=== PATIENT | male | born 1940 | race Caucasian/White ===

== ENCOUNTER → 2018-08-29 12:17 | Outpatient (CLI) | payer OTHER, SELFPAY ==
[2018-08-29 11:55] VITALS: BMI 27.6
--- NOTE | 2018-08-29 12:23 | RAD_ITS ---
HISTORY: Short of breath. EXAM/TECHNIQUE: XR Chest 2 Views: COMPARISON: None. FINDINGS: # of images incl. paperwork: 2 Blunting of the cost phrenic sulci compatible with small pleural effusions. Course interstitial prominence most prominent in the perihilar regions and lower lungs. No apparent pneumothorax. Heart size upper normal. No acute osseous abnormality. . RAD/Chest PA and Lateral IMPRESSION: Findings most likely represent congestive heart failure with pleural effusions and interstitial pulmonary edema. There may be a component of underlying chronic interstitial lung disease; comparison with priors would be helpful. at 1240 Reported and signed by: Piero Telles MD Electronically Signed: Piero Telles, at 12:39 EST Tel , Service support ,
== END ==
PROVIDERS: Referring Provider Physician Assistant Surgical; Visit Provider Physician Assistant Surgical
DX: J20.9 Acute bronchitis, unspecified (principal)
CPT/HCPCS: 71046

== ENCOUNTER 2021-05-13 12:25 | Inpatient (IN) | payer OTHER, MEDICARE, SELFPAY ==
[2021-05-13] VITALS (12 sets, daily range): BP systolic 111–148; BP diastolic 50–94; PULSE 65–106; RESP 16–20; TEMP 36.6–38.1; O2SAT 94–98; BMI 25.1; BMI 28.2
--- NOTE | 2021-05-13 12:52 | EKG12_ITS ---
Test Reason : WEAKNESS Blood Pressure : / mmHG Vent. Rate : 097 BPM Atrial Rate : 108 BPM P-R Int : 000 ms QRS Dur : 128 ms QT Int : 332 ms P-R-T Axes : 000 -31 -28 degrees QTc Int : 421 ms Atrial fibrillation Left axis deviation Non-specific intra-ventricular conduction block Abnormal ECG Confirmed by PANTERA DONALD, DANUTA ([id number]), editor sound HERMINIA ROGERS ([id number]) on 05/14/2021 9:04:13 AM Referred By: REBECA Confirmed By:DANUTA MOTT MD
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
[2021-05-13 13:10] LABS: Absolute Lymphocyte Count 0.06 X10^3/uL (0.83-4.51); Absolute Neutrophil Count 2.5 X10^3/uL (2.0-7.7); Basophil# 0.01 X10^3/uL; Basophil% 0.4 % (0-1); Hematocrit 38.9 % (40-54); Hemoglobin 13.8 g/dL (13.0-16.5); Lymphocyte # 0.06 X10^3/ul (0.83-4.51); Lymphocyte % 2.2 % (19-41); Mean Corp Hgb Conc 35.5 g/dL (32-36); Mean Corpuscular Hgb 30.8 pg (27.0-32.0); Mean Corpuscular Volume 86.8 fL (80-94); Mean Platelet Vol. 9.5 fl (6.2-12.0); Monocyte# 0.16 X10^3/uL; Monocyte% 5.8 % (0-10); NRBC Flagged by Analyzer 0 % (0-5); Neutrophil # 2.53 X10^3/uL (2.7-7.7); Neutrophil % 90.9 % (47-70); POSITIVE DIFFERENTIAL YES; Platelet Count 121 K/mm3 (150-450); RBC Distribution Width SD 41.3 fl (35.1-43.9); Red Blood Count 4.48 M/mm3 (4.6-6.2); White Blood Count 2.8 K/mm3 (4.4-11.0)
--- NOTE | 2021-05-13 13:10 | RAD_ITS ---
STUDY: X-RAY CHEST REASON FOR EXAM: Male, 80 years old. Fever TECHNIQUE: Single AP portable view of the chest. COMPARISON: Comparison is made with prior examination dated 08/21/2018. FINDINGS: EKG electrodes are seen. There is hyperinflation of the lungs consistent with chronic obstructive lung disease (COPD). Mild increased markings at the lung bases suggestive of scarring. These have improved as compared to prior study. Normal size heart. Normal mediastinum and katharina. There is prominence of the pulmonary hilar arteries without peripheral pulmonary vascular congestion, suggesting pulmonary hypertension. Normal visualized aortic arch and descending thoracic aorta. There are diffuse degenerative changes of the visualized thoracic spine. Normal visualized ribs, clavicles, and shoulders. There is no demonstrated abnormality of the visualized soft tissue structures of the upper abdomen. RAD/Chest 1 View (Portable) IMPRESSION: Hyperinflation. Mild degree of increased interstitial markings at the lung bases suggestive of a scarring. There has been improvement as compared to prior study. Electronically Signed: Juvenal Salcedo MD at 13:38 EDT , Service support ,
[2021-05-13 13:11] LABS: Differential Indicated SCAN CRITERIA MET
[2021-05-13 13:38] LABS: ALB/GLOB Ratio 0.9 RATIO (0.9-2.4); AST(SGOT) 87 U/L (15-37); Alanine Aminotransfer ALT/SGPT 27 U/L (16-61); Albumin, Serum 4.2 g/dL (3.2-5.0); Alkaline Phosphatase 133 U/L (45-117); Anion Gap 12 (5-15); BUN 11 mg/dL (7-18); BUN/Creat Ratio 12.6 RATIO (10-20); Calcium,Total 9.4 mg/dL (8.5-10.1); Chloride 81 mmol/L (98-107); Creatinine, Serum 0.88 mg/dL (0.70-1.30); EST Glomerular Filtration Rate 89 mL/min (>60); Est Glom Filt Rate - Afr Amer 108 mL/min (>60); Estimated Creatinine Clearance 73.68 ml/min; Globulin 4.9 g/dL (2.2-4.2); Glucose 113 mg/dL (74-106); Lactic Acid 2.1 mmol/L (0.4-1.9); Lipase 49 U/L (73-393); Protein, Total 9.1 g/dL (6.4-8.2); Sodium Level 119 mmol/L (136-145); Troponin-I HS 420 pg/mL (3.0-78.0)
[2021-05-13 13:52] LABS: Magnesium 1.9 mg/dL (1.6-2.6); Thyroid Stim Hormone (TSH) 1.34 uIU/mL (0.358-3.74)
[2021-05-13 14:00] LABS: White Blood Cells 0 SEEN /hpf (0-5)
[2021-05-13 14:03] LABS: Color, Urine Yellow (Yellow); Glucose, Dipstick Normal (Normal); Ketone-Dipstick 50 mg/dl (Negative); Leukocyte Esterase-Dipstick Negative /ul (Negative); Nitrite-Dipstick Negative (Negative); Occult Blood-Urine 250 /ul (Negative); Protein-Dipstick 100 mg/dl (Negative); Urine Bilirubin Dipstick Negative (Negative); Urine Clarity Clear (Clear); Urine Urobilinogen Normal (Normal)
[2021-05-13 14:18] LABS: Bacteria RARE /hpf (None Seen); Mucous, Urine RARE /hpf (<or=2+); Red Blood Cells-Urine 5-10 SEEN /hpf (0-5); Squamous Epithelial Cells - UA 0-5 SEEN /hpf (0-5)
--- NOTE | 2021-05-13 14:28 | ED.RN ---
multiple attempts to draw blood. unsuccessful. lab notified. will send someone up to draw.
--- NOTE | 2021-05-13 15:17 | ED.RN ---
unable to obtain ptt/pt/inr in blood work. pt stuck multiple times, nurses and lab were unsuccessful. dr. whittaker informed.
--- NOTE | 2021-05-13 15:40 | ED.RN ---
THIS RN ATTEMPTED TO CALL [facility] AND OBTAIN A MEDICATION LIST. [facility] WAS UNABLE TO GIVE INFORMATION TO THIS RN AFTER BEING ON HOLD FOR 20 MIN.
[2021-05-13] MEDS: Aspirin 325 MG Tablet PO (16:32)
[2021-05-13 17:02] LABS: Reflex Lactate? Y
[2021-05-13] MEDS: Potassium Chloride Oral Tablet 20 MEQ 40 MEQ PO ×2 (17:24→21:43)
[2021-05-13 17:33] LABS: International Normalized Ratio 1.5; Partial Thromboplast Time 57.2 Seconds (24.1-36.2); Prothrombin Time (Protime)PT. 17.4 SECONDS (11.7-14.9)
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
[2021-05-13 17:48] LABS: Lactic Acid 1.1 mmol/L (0.4-1.9)
--- NOTE | 2021-05-13 18:05 | ECHOCS_ITS ---
Reason For Study: Afib/Flutter Procedure This was a 2D Doppler, Color Flow transthoracic echocardiogram. The study was technically difficult. Contrast injection was performed. Exam performed portable in patient room. Left Ventricle Normal LV size. The estimated ejection fraction is 40 %. Mild segmental systolic dysfunction (see wall motion). Infero-Basal: Akinetic. Mid-inferoseptal : Hypokinetic. The rest of the wall segments are normal. Right Ventricle Normal RV size. Normal systolic function. Atria The left atrium is mildly enlarged. The right atrium is mildly enlarged. Mitral Valve Normal mitral valve. Mild (1+) eccentric mitral valve insufficiency. Tricuspid Valve Normal tricuspid valve. Mild to moderate (1-2+) tricuspid valve insufficiency. Pulmonary artery systolic pressure is 38 mmHg. Aortic Valve Normal aortic valve. Pulmonic Valve Normal pulmonic valve. Great Vessels Normal aortic root. The pulmonary artery is normal size. Normal inferior vena cava. Pericardium/Pleural No pericardial effusion. Medication Diluted definity 3ml given slow IV push to enhance endocardial definition. MMode/2D Measurements & Calculations LVIDd: 5.4 cm IVSd: 1.0 cm LA dimension: 4.9 cm LVIDs: 3.9 cm LVPWd: 0.82 cm RVDd: 5.1 cm FS: 27.6 % LAV(MOD-bp): 69.0 ml LA A4 area: 24.4 cm2 RA A4 area: 24.2 cm2 LAV(MOD-bp) Indexed: 33.4 ml/m2 LAV(MOD-sp2): 59.2 ml LAV(MOD-sp4): 78.1 ml Doppler Measurements & Calculations MV E max andrés: 90.5 cm/sec Ao V2 max: 90.0 cm/sec LV V1 max: 75.9 cm/sec Ao max P.3 mmHg LV V1 max P.3 mmHg MR max andrés: 470.2 cm/sec PA V2 max: 104.2 cm/sec TR max andrés: 292.8 cm/sec MR max P.4 mmHg TR max P.3 mmHg MR mean andrés: 378.2 cm/sec MR mean P.4 mmHg MR VTI: 138.0 cm ECHO/Echo Complete W/ Contrast Interpretation Summary Normal LV size. The estimated ejection fraction is 40 %. Mild segmental systolic dysfunction (see wall motion). Contrast injection was performed. Ordering Physician: Mick Molina Referring Physician: [place], [place] Performed By: Javier Hernandez RCS
--- NOTE | 2021-05-13 18:10 | PCS.PANDOC ---
PANDEMIC DOCUMENTATION INITIATED: Date: 03/17/2021 Time: 190
[2021-05-13] MEDS: 0.9% Normal Saline 1,000 ML 150 ML IV (18:30)
[2021-05-13 20:51] LABS: Troponin-I HS 1552 pg/mL (3.0-78.0)
[2021-05-13 22:28] LABS: Troponin-I HS 1484 pg/mL (3.0-78.0)
[2021-05-14] VITALS (10 sets, daily range): BP systolic 113–130; BP diastolic 53–73; PULSE 61–83; RESP 18; TEMP 36.4–38.2; O2SAT 96–100
[2021-05-14 02:15] LABS: Troponin-I HS 793 pg/mL (3.0-78.0)
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
[2021-05-14 07:08] LABS: Absolute Lymphocyte Count 0.08 X10^3/uL (0.83-4.51); Absolute Neutrophil Count 1.9 X10^3/uL (2.0-7.7); Basophil# 0.01 X10^3/uL; Basophil% 0.4 % (0-1); Hematocrit 32.6 % (40-54); Hemoglobin 11.5 g/dL (13.0-16.5); Lymphocyte # 0.08 X10^3/ul (0.83-4.51); Lymphocyte % 3.5 % (19-41); Mean Corp Hgb Conc 35.3 g/dL (32-36); Mean Corpuscular Hgb 30.9 pg (27.0-32.0); Mean Corpuscular Volume 87.6 fL (80-94); NRBC Flagged by Analyzer 0 % (0-5); Neutrophil # 1.91 X10^3/uL (2.7-7.7); Neutrophil % 82.7 % (47-70); POSITIVE COUNT YES; POSITIVE DIFFERENTIAL YES; POSITIVE MORPHOLOGY YES; Platelet Count 97 K/mm3 (150-450); RBC Distribution Width SD 41.9 fl (35.1-43.9); Red Blood Count 3.72 M/mm3 (4.6-6.2); White Blood Count 2.3 K/mm3 (4.4-11.0)
[2021-05-14 07:13] LABS: Differential Indicated SCAN CRITERIA MET
[2021-05-14 07:24] LABS: International Normalized Ratio 1.4; Prothrombin Time (Protime)PT. 16.4 SECONDS (11.7-14.9)
[2021-05-14 07:39] LABS: Differential Comment SCANNED; Platelet Estimate SLT DEC (ADEQ)
[2021-05-14 07:47] LABS: ALB/GLOB Ratio 0.8 RATIO (0.9-2.4); AST(SGOT) 75 U/L (15-37); Alanine Aminotransfer ALT/SGPT 25 U/L (16-61); Albumin, Serum 3.1 g/dL (3.2-5.0); Alkaline Phosphatase 96 U/L (45-117); Anion Gap 8 (5-15); BUN 17 mg/dL (7-18); BUN/Creat Ratio 20.8 RATIO (10-20); Calcium,Total 8.4 mg/dL (8.5-10.1); Chloride 90 mmol/L (98-107); Cholesterol 135 mg/dL (200); Creatinine, Serum 0.82 mg/dL (0.70-1.30); EST Glomerular Filtration Rate 97 mL/min (>60); Est Glom Filt Rate - Afr Amer 117 mL/min (>60); Estimated Creatinine Clearance 74.24 ml/min; Glucose 121 mg/dL (74-106); High Density Lipoprotein 77 mg/dL; Potassium 3.6 mmol/L (3.5-5.1); Protein, Total 7.1 g/dL (6.4-8.2); Sodium Level 121 mmol/L (136-145); Triglycerides 72 mg/dL; Very Low Density Lipoprotein 14 mg/dL (5-40)
[2021-05-14 08:16] LABS: BNP,B-Type NATRIURETIC PEPTIDE 1755.7 pg/mL (0-100)
[2021-05-14 08:19] LABS: Vitamin D,25 Hydroxy 25.8 ng/mL
[2021-05-14 08:20] LABS: Urine Sodium 8 mmol/L (Not Establ.)
[2021-05-14] MEDS: Aspirin 81 MG TAB.CHEW PO (08:34)
[2021-05-14] MEDS: Thiamine Hydrochloride 100 MG Tablet PO (08:35)
[2021-05-14] MEDS: Folic Acid 1 MG Tablet PO (08:35)
[2021-05-14] MEDS: Carvedilol 3.125 MG TABLET PO ×2 (08:35→22:45)
[2021-05-14 09:53] LABS: Osmolality, Urine 617 mOsm/KG
[2021-05-14 09:54] LABS: Osmolality, Serum 255 mOsm/KG (280-301)
[2021-05-14] MEDS: Acetaminophen 325 MG Tablet 650 MG PO ×2 (11:03→20:20)
--- NOTE | 2021-05-14 11:33 | WOUNDNOTE ---
wound photo: left elbow/forearm
--- NOTE | 2021-05-14 12:03 | CASEMGMT ---
Assessment- SW completed assessment with patient and his . SW also confirmed demographics and contacts. Living situation- Patient lives with his in a 1 story home with 3 entry steps. PCP: [facility] in [place] Specialists: None Pharmacy: [facility] DME: cane ADL's/IADL's: Patient prior to the last few days was independent with all of his activities of daily living (ADL's and IADL's). He did not use any assistive devices prior. Past SNF/rehab: None Past HH: None LW: Yes. Aware not on file POA: Yes. Aware not on file and it is his , [place]. Plan: Patient and his feel patient will likely need to go to a snf facility for short term rehab. Patient's said the last few days patient has not been able to do anything for himself. She said she cannot handle him right now. SW also asked patient about his use of alcohol and he does not feel he needs assistance with quitting. His said he quits every now and again. SW provided patient and his with a list of SNF providers including quality and resource use data and consistent with the patient?s preferred geographic region, medical needs, and insurance network. SW asked that they pick 2-3 facilities. SW will check back with patient and his after therapy sees him. Jahaira LANCASTER
--- NOTE | 2021-05-14 13:53 | PCM.PN.HOSP ---
Documented by User: Colette Ortega HUMAN RESOURCES BENEFITS MANAGER, HUMAN RESOURCES BENEFITS MANAGER-C 05/14/21 14:15 Subjective Subjective Patient seen and examined. at bedside. Reports generalized weakness with recurrent falls at home. Reports a wet cough which was ongoing prior to admission. Denies known fever, chills. Denies chest pain, shortness of breath. Objective Data Objective Data Vital Signs: Vital Signs Temp Pulse Resp BP Pulse Ox 97.6 F L 68 18 123/73 H 98 05/14/21 13:13 05/14/21 13:13 05/14/21 13:13 05/14/21 13:13 05/14/21 08:20 Oxygen Delivery Method Room Air Weight: 191 lb 5.78 oz Body Mass Index (BMI) 28.2 Intake & Output: Intake and Output for Last 24 Hours 05/12/21 05/13/21 05/14/21 23:59 23:59 23:59 Intake Total 1251.5 / 1251.5 992.5 / 992.5 Balance 1251.5 / 1251.5 992.5 / 992.5 Lab / Micro Data Result Diagrams: 05/14/21 06:48 05/14/21 06:48 Labs: Laboratory Results - last 24 hr 05/13/21 13:55: Urine Color Yellow, Urine Clarity Clear, Urine pH 6.0, Ur Specific [place] 1.020, Urine Protein 100 H, Urine Glucose (UA) Normal, Urine Ketones 50 H, Urine Occult Blood 250 H, Urine Nitrite Negative, Urine Bilirubin Negative, Urine Urobilinogen Normal, Ur Leukocyte Esterase Negative, Urine RBC 5-10 SEEN, Urine WBC 0 SEEN, Ur Squamous Epith Cells 0-5 SEEN, Urine Bacteria RARE, Urine Mucus RARE 05/13/21 14:22: COVID-19 ([facility]) Not Detected 05/13/21 17:15: PT 17.4 H, INR 1.5, APTT 57.2 H 05/13/21 17:15: Lactic Acid 1.1 05/13/21 19:40: Troponin I High Sens 1552 H* 05/13/21 21:40: Troponin I High Sens 1484 H* 05/14/21 01:42: Troponin I High Sens 793 H* 05/14/21 06:25: Urine Osmolality 617, Ur Random Sodium 8 05/14/21 06:48: PT 16.4 H, INR 1.4 05/14/21 06:48: B-Natriuretic Peptide 1755.7 H 05/14/21 06:48: WBC 2.3 L, RBC 3.72 L, Hgb 11.5 L, Hct 32.6 L, MCV 87.6, MCH 30.9, MCHC 35.3, RDW Std Deviation 41.9, RDW Coeff of Arron 13.0, Plt Count 97 L, MPV 9.0, Immature Gran % (Auto) 0.400, Neut % (Auto) 82.7 H, Lymph % (Auto) 3.5 L, [place] % (Auto) 13.0 H, Eos % (Auto) 0.0, Baso % (Auto) 0.4, Absolute Neuts (auto) 1.9 L, Absolute Lymphs (auto) 0.08 L, Nucleated RBC % 0, Differential Comment SCANNED, Diff Path Review November, Platelet Estimate SLT 05/14/21 06:48: Sodium 121 L, Potassium 3.6, Chloride 90 L, Carbon Dioxide 23.0, Anion Gap 8, BUN 17, Creatinine 0.82, Estim Creat Clear Calc 74.24, Est GFR (MDRD) Af Amer 117, Est GFR (MDRD) Non-Af 97, BUN/Creatinine Ratio 20.8 H, Glucose 121 H, Calcium 8.4 L, Total Bilirubin 1.90 H, AST 75 H, ALT 25, Alkaline Phosphatase 96, Total Protein 7.1, Albumin 3.1 L, Globulin 4.0, Albumin/Globulin Ratio 0.8 L, Triglycerides 72, Cholesterol 135, LDL Cholesterol 44, VLDL Cholesterol 14, HDL Cholesterol 77 05/14/21 06:48: Serum Osmolality 255 L 05/14/21 06:48: Vitamin D 25-Hydroxy 25.8, Cortisol 32.30 H Micro: Microbiology 05/13/21 12:50 Nasal Secretion SARS-CoV-2 Antigen (Rapid) - Final Radiography Diagnostic Testing: Radiology Impression Echocardiogram 05/13/21 18:05 Interpretation Summary Normal LV size. The estimated ejection fraction is 40 %. Mild segmental systolic dysfunction (see wall motion). Contrast injection was performed. Ordering Physician: Mick Molina Referring Physician: [place], [place] Performed By: Javier Hernandez RCS Abdomen Ultrasound 05/14/21 17:52 IMPRESSION: Mild degree of hepatomegaly and heterogeneous echotexture of the liver. Correlation with a CT scan is recommended for further evaluation. Small amount of perihepatic fluid. Electronically Signed: Juvenal Salcedo MD at 9:44 EDT , Service support , Physical Exam Const alert, oriented x3 and no apparent distress Orientation / Consciousness: awake, oriented to person, oriented to place and oriented to time HEENT normocephalic and moist oral mucous membranes Eyes PERRL, EOMs intact bilaterally and conjunctivae normal Neck no lymphadenopathy Resp clear to auscultation bilaterally Auscultation: diminished lung sounds Cardio no murmurs Cardio Narrative: Atrial fibrillation, rate controlled Peripheral Pulses: pulses 2+ throughout GI normal to inspection, nondistended, normoactive bowel sounds, non-tender and non-distended Extremity normal to inspection Skin no rashes or lesions noted Skin Narrative: Generalized ecchymosis. Left elbow skin tear, dressing intact. Lesions: no lesions Rashes: no rashes Trauma: no lacerations or abrasions Neuro CN's II-XII intact bilaterally, no focal motor deficits, no sensory deficits noted and deep tendon reflexes 2+ bilaterally Psych mental status grossly normal and affect normal Assessment & Plan Assessment/Plan (1) Atrial fibrillation, new onset: PLAN: 1. New onset atrial fibrillation- cardiology consulted. Underwent echocardiogram which demonstrated an EF of 40%. Rate currently controlled. Not a candidate for anticoagulation due to fall risk and alcohol dependence. Continue beta-fermin. Aspirin 81 mg daily. 2. NSTEMI-cardiology consulted. Likely demand ischemia secondary to above. Initiated on beta-fermin. Echo as noted above. 3. Fever, cough-concern for aspiration given heavy alcohol use. Ongoing wet cough. Chest x-ray and admission unremarkable. Repeat CXR following gentle hydration. IV Zosyn empirically. Speech therapy consult. 4. Hyponatremia-suspect secondary to alcohol use as well as HCTZ. Urine osmolality and sodium not consistent with SIADH. Suspect hypovolemic hyponatremia/beer potomania. Cortisol mildly elevated. TSH normal. IV fluids, trend BMP. 5. Hypokalemia-replaced per protocol. Trend BMP. HCTZ discontinued. 6. Alcohol dependence-thiamine, folic acid, multivitamin supplementation. Denies withdrawal symptoms. CIWA/Ativan protocol. 7. Hypertension-HCTZ discontinued. Continue amlodipine, hydralazine. 8. Debility with recurrent falls-PT/OT. TCU pending and medically stable. 9. Transaminitis/elevated bilirubin-ultrasound with mild degree of hepatomegaly, heterogeneous echotexture of the liver. Suspect related to alcohol use. AST trending down, ALT remains normal. Bilirubin trending down. Monitor labs. DVT prophylaxis-SCDs This patient was seen by PARAM Fitzgerald under the supervision of Dr. Negron. Documented by User: Dr. Connor Negron MD 05/14/21 15:41 Objective Data Lab / Micro Data Result Diagrams: 05/14/21 06:48 05/14/21 06:48 Charges/Coding Addendum Addendum: Dr. Negron: I personally reviewed the chart and examined the patient, and agree with the above findings. 80-year-old male with a history of alcoholism who quit drinking 2 to 3 weeks ago presents after multiple falls at home. He was found to have an elevated troponin and because it did rise cardiology was consulted and felt this was demand ischemia. Echo demonstrated an EF of 40% with mild segmental systolic dysfunction. Will await cardiology's recommendations, as he also had an new onset A. fib which may have contributed to the elevated troponin as well. Also of note he did have a distended abdomen with elevated LFTs and abdominal ultrasound was obtained which did show some mild hepatomegaly and perihepatic fluid, given the history of his drinking this could be early cirrhosis. We will get a consult from gastroenterology as well for outpatient follow-up. Currently states that he feels well, denies any abdominal pain or chest pain, denies any shortness of breath. Visit Charges Inpatient E&M: 87714 Subs Hosp L2
--- NOTE | 2021-05-14 14:01 | CASEMGMT ---
SW spoke with patient and his . They would like for patient to go to TCU. SW called and checked on bed availability and they would be able to take patient. SW notified patient and his that TCU would be able to take patient when he is ready. Plan: [facility] TCU under skilled level of care when medically ready. Jahaira BULL
[2021-05-14] MEDS: 0.9% Normal Saline 1,000 ML 75 ML IV (14:46)
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
--- NOTE | 2021-05-14 17:52 | US_ITS ---
STUDY: ABDOMINAL ULTRASOUND - RIGHT UPPER QUADRANT REASON FOR VISIT: Male, 80 years old fever. Elevated LFTs TECHNIQUE: Ultrasound evaluation of the right upper quadrant was performed with real-time and static ricks-scale imaging. TECHNICAL QUALITY: Adequate. COMPARISON: None. FINDINGS: Liver: The liver measures 18.7 cm. Small amount of perihepatic fluid. There is a heterogeneous echogenicity of the liver. No distinct mass lesion is seen. Correlation with a CT scan is recommended for further evaluation. The bile ducts are within normal limits. There is hepatic color flow. The direction of portal flow is hepatopetal. There is no demonstrated mass lesion. Gallbladder: Normal distended gallbladder. The gallbladder wall measures 2.9 mm. There is a negative sonographic Glaser''s sign. There is no pericholecystic fluid. There are no gallstones. Common Bile Duct (C.B.D.): The common bile duct measures 4.2 mm. Pancreas: Normal size of the head, body and tail of the pancreas. There is increased echogenicity of the pancreas. There is no demonstrated pancreatic mass or cyst. Right Kidney: Normal size of the right kidney. The right kidney measures 10.9 cm x 5 cm x 5.2 cm. Normal renal cortex. The right cortex measures 1.6 cm. There is no demonstrated renal mass or cyst. There is no right hydronephrosis. US/Abdomen Limited IMPRESSION: Mild degree of hepatomegaly and heterogeneous echotexture of the liver. Correlation with a CT scan is recommended for further evaluation. Small amount of perihepatic fluid. Electronically Signed: Juvenal Salcedo MD at 9:44 EDT , Service support ,
[2021-05-14 18:37] LABS: Ferritin 387 ng/mL (26-388); LDH 275 U/L (87-241)
--- NOTE | 2021-05-14 21:35 | NURSING ---
Went in room to access pt and noticed that the bag of zoysn still had roller clamp left shut on it and pt had not received any of it. Informed charge nurse of finding and called pharmacy and he said that it would be ok just to run the 2200 bag right after this one is done back to back so the 6am dose should be on time.
[2021-05-14] MEDS: rifAXIMin 550 MG Tablet PO (22:45)
[2021-05-15] VITALS (9 sets, daily range): BP systolic 115–145; BP diastolic 60–70; PULSE 49–68; RESP 16–18; TEMP 36.3–36.6; O2SAT 97–100
[2021-05-15] MEDS: 0.9% Normal Saline 1,000 ML 75 ML IV ×2 (04:10→17:02)
--- NOTE | 2021-05-15 05:30 | RAD_ITS ---
STUDY: X-RAY CHEST REASON FOR EXAM: Male, 80 years old. fever, suspected aspiration PNA TECHNIQUE: Frontal and lateral views of the chest. COMPARISON: None. FINDINGS: There is hyperinflation of the lungs consistent with chronic obstructive lung disease (COPD). Small bilateral pleural effusions. Normal size heart. Normal mediastinum and katharina. Normal visualized pulmonary arteries. Normal visualized aortic arch and descending thoracic aorta. Normal visualized thoracic spine. Normal visualized ribs, clavicles, and shoulders. There is no demonstrated abnormality of the visualized soft tissue structures of the upper abdomen. RAD/Chest PA and Lateral IMPRESSION: There is hyperinflation of the lungs consistent with chronic obstructive lung disease (COPD). Small bilateral pleural effusions. Electronically Signed: Agatha Carter MD at 3:18 EDT Tel , Service support ,
[2021-05-15 06:24] LABS: Absolute Lymphocyte Count 0.14 X10^3/uL (0.83-4.51); Absolute Neutrophil Count 1.7 X10^3/uL (2.0-7.7); Basophil# 0.01 X10^3/uL; Basophil% 0.5 % (0-1); Eosinophil# 0.01 X10^3/uL; Eosinophils% 0.5 % (0-5); Hematocrit 31.3 % (40-54); Hemoglobin 10.7 g/dL (13.0-16.5); Lymphocyte # 0.14 X10^3/ul (0.83-4.51); Lymphocyte % 6.3 % (19-41); Mean Corp Hgb Conc 34.2 g/dL (32-36); Mean Corpuscular Hgb 30.9 pg (27.0-32.0); Mean Corpuscular Volume 90.5 fL (80-94); Monocyte# 0.35 X10^3/uL; Monocyte% 15.8 % (0-10); NRBC Flagged by Analyzer 0 % (0-5); Neutrophil % 76.4 % (47-70); POSITIVE DIFFERENTIAL YES; Platelet Count 101 K/mm3 (150-450); RBC Distribution Width CV 13.2 % (11.6-14.6); RBC Distribution Width SD 43.9 fl (35.1-43.9); Red Blood Count 3.46 M/mm3 (4.6-6.2); White Blood Count 2.2 K/mm3 (4.4-11.0)
[2021-05-15 06:26] LABS: Differential Indicated SCAN CRITERIA MET
[2021-05-15 06:51] LABS: ALB/GLOB Ratio 0.7 RATIO (0.9-2.4); AST(SGOT) 76 U/L (15-37); Alanine Aminotransfer ALT/SGPT 33 U/L (16-61); Albumin, Serum 2.9 g/dL (3.2-5.0); Alkaline Phosphatase 96 U/L (45-117); Anion Gap 8 (5-15); BUN 24 mg/dL (7-18); BUN/Creat Ratio 27.1 RATIO (10-20); Calcium,Total 8.6 mg/dL (8.5-10.1); Chloride 92 mmol/L (98-107); Creatinine, Serum 0.89 mg/dL (0.70-1.30); EST Glomerular Filtration Rate 88 mL/min (>60); Est Glom Filt Rate - Afr Amer 107 mL/min (>60); Estimated Creatinine Clearance 68.41 ml/min; Globulin 3.9 g/dL (2.2-4.2); Glucose 117 mg/dL (74-106); Protein, Total 6.8 g/dL (6.4-8.2); Sodium Level 125 mmol/L (136-145)
--- NOTE | 2021-05-15 07:45 | PN.GI_ITS ---
Subjective Subjective Patient did not have any problems overnight. He seems more awake and alert today. He states that he is hungry. He denies any abdominal pain. Objective Data Objective Data Vital Signs: Vital Signs Temp Pulse Resp BP Pulse Ox 98 F 63 17 118/60 99 05/15/21 05:11 05/15/21 05:11 05/15/21 05:11 05/15/21 05:11 05/15/21 05:11 Oxygen Delivery Method Room Air Weight: 191 lb 5.78 oz Body Mass Index (BMI) 28.2 Intake & Output: Intake and Output for Last 24 Hours 05/13/21 05/14/21 05/15/21 23:59 23:59 23:59 Intake Total 1251.5 / 1251.5 992.5 / 1092.5 1200 / 1200 Output Total 200 / 200 Balance 1251.5 / 1251.5 992.5 / 892.5 1000 / 1000 Lab / Micro Data Result Diagrams: 05/15/21 06:00 05/15/21 06:00 Labs: Laboratory Results - last 24 hr 05/14/21 06:25: Urine Osmolality 617, Ur Random Sodium 8 05/14/21 06:48: B-Natriuretic Peptide 1755.7 H 05/14/21 06:48: Sodium 121 L, Potassium 3.6, Chloride 90 L, Carbon Dioxide 23.0, Anion Gap 8, BUN 17, Creatinine 0.82, Estim Creat Clear Calc 74.24, Est GFR (MDRD) Af Amer 117, Est GFR (MDRD) Non-Af 97, BUN/Creatinine Ratio 20.8 H, G lucose 121 H, Calcium 8.4 L, Total Bilirubin 1.90 H, AST 75 H, ALT 25, Alkaline Phosphatase 96, Total Protein 7.1, Albumin 3.1 L, Globulin 4.0, Albumin/Globulin Ratio 0.8 L, Triglycerides 72, Cholesterol 135, LDL Cholesterol 44, VLDL Cholesterol 14, HDL Cholesterol 77 05/14/21 06:48: Serum Osmolality 255 L 05/14/21 06:48: Vitamin D 25-Hydroxy 25.8, Cortisol 32.30 H 05/14/21 06:48: Ferritin 387, Lactate Dehydrogenase 275 H 05/14/21 17:44: Ammonia 14.0 05/15/21 06:00: WBC 2.2 L, RBC 3.46 L, Hgb 10.7 L, Hct 31.3 L, MCV 90.5, MCH 30.9, MCHC 34.2, RDW Std Deviation 43.9, RDW Coeff of Arron 13.2, Plt Count 101 L, MPV 10.0, Immature Gran % (Auto) 0.500, Neut % (Auto) 76.4 H, Lymph % (Auto) 6.3 L, [place] % (Auto) 15.8 H, Eos % (Auto) 0.5, Baso % (Auto) 0.5, Absolute Neuts (auto) 1.7 L, Absolute Lymphs (auto) 0.14 L, Nucleated RBC % 0, Differential Comment , Diff Path Review November05/15/21 06:00: Sodium 125 L, Potassium 4.0, Chloride 92 L, Carbon Dioxide 25.0, Anion Gap 8, BUN 24 H, Creatinine 0.89, Estim Creat Clear Calc 68.41, Est GFR (MDRD) Af Amer 107, Est GFR (MDRD) Non-Af 88, BUN/Creatinine Ratio 27.1 H, Glucose 117 H, Calcium 8.6, Total Bilirubin 1.50 H, AST 76 H, ALT 33, Alkaline Phosphatase 96, Total Protein 6.8, Albumin 2.9 L, Globulin 3.9, Albumin/Globulin Ratio 0.7 L Micro: Microbiology 05/13/21 12:50 Nasal Secretion SARS-CoV-2 Antigen (Rapid) - Final Radiography Diagnostic Testing: Radiology Impression Echocardiogram 05/13/21 18:05 Interpretation Summary Normal LV size. The estimated ejection fraction is 40 %. Mild segmental systolic dysfunction (see wall motion). Contrast injection was performed. Ordering Physician: Mick Molina Referring Physician: [place], [place] Performed By: Javier Hernandez RCS Abdomen Ultrasound 05/14/21 17:52 IMPRESSION: Mild degree of hepatomegaly and heterogeneous echotexture of the liver. Correlation with a CT scan is recommended for further evaluation. Small amount of perihepatic fluid. Electronically Signed: Juvenal Salcedo MD at 9:44 EDT , Service support , Physical Exam Const alert General Appearance: cooperative Orientation / Consciousness: oriented to person HEENT hearing grossly normal bilaterally Head and Scalp: normal to inspection Face and Sinus: face symmetric Nose: external nose normal Mouth: oral and palatal mucosa normal Eyes conjunctivae normal General Eye: normal appearance of both eyes Neck full ROM General: normal visual inspection Lymph Lymphatic: no lymphadenopathy noted Chest inspection of chest normal and palpation of chest normal Chest: symmetrical chest wall rise Resp normal respiratory effort Effort and Inspection: able to speak in complete sentences Cardio regular rate GI non-distended Percussion: normal to percussion Rectal Exam: deferred Neuro Speech: speech normal Gait (Neuro): normal gait Assessment & Plan Assessment/Plan (1) Alcoholic hepatitis: PLAN: Patient labs continue to improve in regards to his alcoholic hepatitis. His Madre score continues to improve. He is on Pentoxifylline and doing well without any side effects. No signs of encephalopathy associated with alcoholic hepatitis. (2) Cirrhosis: PLAN: Patient still has decompensated cirrhosis. His meld is 18. This is in the setting of alcoholic hepatitis, non-ST segment elevation [place] and improved encephalopathy. He is 1 L positive over the last 24 hours. I would like to initiate Aldactone, Lasix and midodrine. However, I would not do this until cleared by cardiology. (3) Pancytopenia: PLAN: His platelet count mildly increased as hemoglobin decreased. (4) Non-ST elevation [place] (NSTEMI): PLAN: Patient is not on antiplatelet or anticoagulant therapy secondary to cirrhosis and anemia. He will likely need an upper endoscopy to look for varices or portal hypertension. Please keep n.p.o. after midnight (5) Anemia: PLAN: Transfuse to keep hematocrit greater than 40 Charges/Coding Visit Charges Inpatient E&M: 38576 Subs Hosp L3
[2021-05-15 09:22] LABS: Pathologist Review Reviewed
[2021-05-15 09:24] LABS: Pathologist Review Reviewed
[2021-05-15] MEDS: Pentoxifylline 400 MG Tablet PO ×3 (09:31→17:03)
[2021-05-15] MEDS: Thiamine Hydrochloride 100 MG Tablet PO (09:31)
[2021-05-15] MEDS: Folic Acid 1 MG Tablet PO (09:31)
[2021-05-15] MEDS: Aspirin 81 MG TAB.CHEW PO (09:31)
[2021-05-15] MEDS: rifAXIMin 550 MG Tablet PO ×2 (09:31→21:19)
[2021-05-15] MEDS: Carvedilol 3.125 MG TABLET PO ×2 (09:31→21:19)
--- NOTE | 2021-05-15 13:16 | PCM.PN.HOSP ---
Documented by User: Heidi Snyder [employer] 05/15/21 13:26 Subjective Subjective Patient seen and examined. Patient states that he is feeling okay. Wound nurse at bedside, states skin tears look much better than previous assessment. Patient denies needs at this time Objective Data Objective Data Vital Signs: Vital Signs Temp Pulse Resp BP Pulse Ox 97.5 F L 68 18 145/70 H 99 05/15/21 11:00 05/15/21 11:00 05/15/21 11:00 05/15/21 11:00 05/15/21 11:00 Oxygen Delivery Method Room Air Weight: 191 lb 5.78 oz Body Mass Index (BMI) 28.2 Intake & Output: Intake and Output for Last 24 Hours 05/13/21 05/14/21 05/15/21 23:59 23:59 23:59 Intake Total 1251.5 / 1251.5 992.5 / 1092.5 1490 / 1490 Output Total 200 / 200 Balance 1251.5 / 1251.5 992.5 / 892.5 1290 / 1290 Lab / Micro Data Result Diagrams: 05/15/21 06:00 05/15/21 06:00 Labs: Laboratory Results - last 24 hr 05/13/21 12:50: Diff Path Review Reviewed 05/14/21 06:48: Diff Path Review Reviewed 05/14/21 06:48: Ferritin 387, Lactate Dehydrogenase 275 H 05/14/21 17:44: Ammonia 14.0 05/15/21 06:00: WBC 2.2 L, RBC 3.46 L, Hgb 10.7 L, Hct 31.3 L, MCV 90.5, MCH 30.9, MCHC 34.2, RDW Std Deviation 43.9, RDW Coeff of Arron 13.2, Plt Count 101 L, MPV 10.0, Immature Gran % (Auto) 0.500, Neut % (Auto) 76.4 H, Lymph % (Auto) 6.3 L, [place] % (Auto) 15.8 H, Eos % (Auto) 0.5, Baso % (Auto) 0.5, Absolute Neuts (auto) 1.7 L, Absolute Lymphs (auto) 0.14 L, Nucleated RBC % 0, Differential Comment , Diff Path Review November05/15/21 06:00: Sodium 125 L, Potassium 4.0, Chloride 92 L, Carbon Dioxide 25.0, Anion Gap 8, BUN 24 H, Creatinine 0.89, Estim Creat Clear Calc 68.41, Est GFR (MDRD) Af Amer 107, Est GFR (MDRD) Non-Af 88, BUN/Creatinine Ratio 27.1 H, Glucose 117 H, Calcium 8.6, Total Bilirubin 1.50 H, AST 76 H, ALT 33, Alkaline Phosphatase 96, Total Protein 6.8, Albumin 2.9 L, Globulin 3.9, Albumin/Globulin Ratio 0.7 L Micro: Microbiology 05/13/21 13:20 Blood Culture (Wb) - Right Hand Blood Culture - Preliminary No growth in 48 hours. 05/13/21 12:50 Blood Culture (Wb) - Right Wrist Blood Culture - Preliminary No growth in 48 hours. 05/13/21 12:50 Nasal Secretion SARS-CoV-2 Antigen (Rapid) - Final Physical Exam Const alert, oriented x3 and no apparent distress HEENT head/scalp atraumatic Head and Scalp: normocephalic Eyes conjunctivae normal and no scleral icterus Neck full ROM and supple General: trachea midline Resp normal respiratory effort, normal air movement and clear to auscultation bilaterally Effort and Inspection: able to speak in complete sentences Cardio regular rate, S1 normal heart sound and S2 normal heart sound Rhythm: abnormal rhythm irregularly irregular Peripheral Pulses: pulses 2+ throughout GI normal to inspection, nondistended, normoactive bowel sounds, soft to palpation and non-tender Extremity normal to inspection, full ROM and no clubbing, cyanosis or edema Peripheral Pulses: Yes pulses 2+ throughout Skin no rashes or lesions noted Skin Narrative: Patient has skin tears to arms, dressing dry and intact, see wound nurse notes Neuro oriented x3, moves all extremities, no focal motor deficits and no sensory deficits noted Sensorium / Orientation: awake and alert Psych affect normal Assessment & Plan Assessment/Plan (1) Atrial fibrillation, new onset: (2) Non-ST elevation [place] (NSTEMI): (3) Alcoholic hepatitis: PLAN: 1. Atrial fibrillation -Continue aspirin and beta-fermin -Patient not currently on anticoagulation due to alcohol dependence and high fall risk -Echo demonstrates EF 40% -Cardiology following 2. NSTEMI -Likely demand ischemia secondary to #1 3. Possible aspiration pneumonia -High concern due to heavy alcohol use -Chest x-ray unremarkable at admission, will repeat -Continue IV Zosyn -ST consulted 4. Hyponatremia -Improving, 125 -Urine osmolality and sodium not consistent with SIADH -Likely secondary to use of HCTZ as well as alcohol use -BMP daily, trend 5. Hypokalemia-resolved 6. Alcohol dependence -Continue thiamine, folic acid, multivitamin -CIWA and as needed Ativan protocol ordered 7. Debility with recurrent falls -PT and OT following -Plan for TCU upon discharge 8. Alcoholic hepatitis -Ultrasound demonstrates mild degree of hepatomegaly -Bilirubin decreasing, AST unchanged from previous lab draw. DVT prophylaxis-SCDs This patient was seen by PARAM Knox under the supervision of Dr. Negron. Documented by User: Dr. Connor Negron MD 05/15/21 17:09 Objective Data Lab / Micro Data Result Diagrams: 05/15/21 06:00 05/15/21 06:00 Charges/Coding Addendum Addendum: Dr. Negron: I personally reviewed the chart and examined the patient, and agree with the above findings. 80-year-old male with a history of alcoholism who quit drinking 2 to 3 weeks ago presents after multiple falls at home. He was found to have an elevated troponin and because it did rise cardiology was consulted and felt this was demand ischemia. Echo demonstrated an EF of 40% with mild segmental systolic dysfunction. Will await cardiology's recommendations, as he also had an new onset A. fib which may have contributed to the elevated troponin as well. Also of note he did have a distended abdomen with elevated LFTs and abdominal ultrasound was obtained which did show some mild hepatomegaly and perihepatic fluid, given the history of his drinking this could be early cirrhosis. We will get a consult from gastroenterology as well for outpatient follow-up. Currently states that he feels well, denies any abdominal pain or chest pain, denies any shortness of breath. 05/15/2021: Doing well today, plan for an EGD in the morning by GI. We will continue to treat his cardiac issues medically per recommendations by cardiology secondary to his metabolic concerns with A. fib and hyponatremia and hypokalemia. He is a little bit anemic, with his hemoglobin over 10, I do understand the recommendation for keeping his hematocrit greater than 40 however there is a national blood shortage so we will hold off at this time. Visit Charges Inpatient E&M: 47997 Subs Hosp L2
--- NOTE | 2021-05-15 14:40 | PN.CARD_ITS ---
Objective Data Vital Signs: Vital Signs Temp Pulse Resp BP Pulse Ox 97.5 F L 68 18 145/70 H 99 05/15/21 11:00 05/15/21 11:00 05/15/21 11:00 05/15/21 11:00 05/15/21 11:00 Oxygen Delivery Method Room Air Weight: 191 lb 5.78 oz Body Mass Index (BMI) 28.2 Intake & Output: Intake and Output for Last 24 Hours 05/13/21 05/14/21 05/15/21 23:59 23:59 23:59 Intake Total 1251.5 / 1251.5 992.5 / 1092.5 1490 / 1490 Output Total 200 / 200 Balance 1251.5 / 1251.5 992.5 / 892.5 1290 / 1290 Lab / Micro Data Result Diagrams: 05/15/21 06:00 05/15/21 06:00 Labs: Laboratory Results - last 24 hr 05/13/21 12:50: Diff Path Review Reviewed 05/14/21 06:48: Diff Path Review Reviewed 05/14/21 06:48: Ferritin 387, Lactate Dehydrogenase 275 H 05/14/21 17:44: Ammonia 14.0 05/15/21 06:00: WBC 2.2 L, RBC 3.46 L, Hgb 10.7 L, Hct 31.3 L, MCV 90.5, MCH 30.9, MCHC 34.2, RDW Std Deviation 43.9, RDW Coeff of Arron 13.2, Plt Count 101 L, MPV 10.0, Immature Gran % (Auto) 0.500, Neut % (Auto) 76.4 H, Lymph % (Auto) 6.3 L, Door % (Auto) 15.8 H, Eos % (Auto) 0.5, Baso % (Auto) 0.5, Absolute Neuts (auto) 1.7 L, Absolute Lymphs (auto) 0.14 L, Nucleated RBC % 0, Differential Comment , Diff Path Review May 05/15/21 06:00: Sodium 125 L, Potassium 4.0, Chloride 92 L, Carbon Dioxide 25.0, Anion Gap 8, BUN 24 H, Creatinine 0.89, Estim Creat Clear Calc 68.41, Est GFR (MDRD) Af Amer 107, Est GFR (MDRD) Non-Af 88, BUN/Creatinine Ratio 27.1 H, Glucose 117 H, Calcium 8.6, Total Bilirubin 1.50 H, AST 76 H, ALT 33, Alkaline Phosphatase 96, Total Protein 6.8, Albumin 2.9 L, Globulin 3.9, Albumin/Globulin Ratio 0.7 L Micro: Microbiology 05/13/21 13:20 Blood Culture (Wb) - Right Hand Blood Culture - Preliminary No growth in 48 hours. 05/13/21 12:50 Blood Culture (Wb) - Right Wrist Blood Culture - Preliminary No growth in 48 hours. Cardiology Labs/Tests 05/14/21 06:48: Ferritin 387 05/15/21 06:00: WBC 2.2 L, RBC 3.46 L, Hgb 10.7 L, Hct 31.3 L, MCV 90.5, MCH 30.9, MCHC 34.2, Plt Count 101 L, MPV 10.0, Immature Gran % (Auto) 0.500, Neut % (Auto) 76.4 H, Lymph % (Auto) 6.3 L, Door % (Auto) 15.8 H, Eos % (Auto) 0.5, Baso % (Auto) 0.5, Absolute Neuts (auto) 1.7 L, Nucleated RBC % 0 05/15/21 06:00: Sodium 125 L, Potassium 4.0, Chloride 92 L, Carbon Dioxide 25.0, Anion Gap 8, BUN 24 H, Creatinine 0.89, Est GFR (MDRD) Af Amer 107, Est GFR (MDRD) Non-Af 88, BUN/Creatinine Ratio 27.1 H, Glucose 117 H, Calcium 8.6, Total Bilirubin 1.50 H Rhythm: EKG: ECHO: 05/13/21: Normal LV size. The estimated ejection fraction is 40 %. Mild segmental systolic dysfunction (see wall motion). Contrast injection was performed. Physical Exam Const alert, oriented x3 and no apparent distress General Appearance: cooperative HEENT hearing grossly normal bilaterally Head and Scalp: atraumatic Eyes EOMs intact bilaterally Neck General: normal visual inspection Chest inspection of chest normal and palpation of chest normal Resp normal respiratory effort Auscultation: clear to auscultation bilaterally Cardio regular rate, regular rhythm, S1 normal heart sound and S2 normal heart sound Jugular Venous Distention: JVD GI normal to inspection, nondistended, normoactive bowel sounds Extremity normal capillary refill and no pedal edema Peripheral Pulses: Yes pulses 2+ throughout and femoral pulses present Skin no rashes or lesions noted Neuro oriented x3 and CN's II-XII intact bilaterally Psych Appearance: grossly normal and appropriate Assessment & Plan Assessment/Plan (1) Non-ST elevation [place] (NSTEMI): PLAN: Patient is noted to have a non-ST elevation myocardial infarction. Suspect the above is likely demand ischemia. He has a number of metabolic issues going on with his hyponatremia and hypokalemia. The atrial fibrillation could also have triggered the above. * Will start low-dose beta-fermin with carvedilol which would also be helpful for his alcohol use. * Will hold off on any invasive work-up until the patient appears to be more stable from the electrolyte standpoint. * Will add low dose PATSY-I * Can not add statin d/t alcoholic hepatitis and cirrhosis * can not add Plavix d/t thrombocytopenia, would like to try low dose ASA. (2) Atrial fibrillation, new onset: PLAN: He is in atrial fibrillation the duration of which is unclear at this particular time. Would not recommend anticoagulation due to his significant alcohol use and his INR already being elevated with his thrombocytopenia and his significant bruising. * Will utilize beta-fermin for rate control and follow (3) HTN (hypertension): PLAN: His blood pressure appears to be under good control at this particular time * will continue with BB, will add low dose PATSY-I (4) Cardiomyopathy: PLAN: * this is noted to be low, this could be from several factors. * At this time recommend medical management, will continue with BB, Add PATSY-I * would consider repeat echo and/or stress test on OP basis
--- NOTE | 2021-05-15 15:02 | CASEMGMT ---
This RN CM received message from Katie at [facility] and call back to her. Message left for Katie to call this RN MURIEL back. Katie's contact info: [phone] ext [phone]. Tanya SPANN CM
--- NOTE | 2021-05-15 16:01 | PN.CARD_ITS ---
Documented by User: Mago MILLER, ANGELA 05/15/21 16:18 Subjective Subjective Pt is doing well. No new complaints Objective Data Vital Signs: Vital Signs Temp Pulse Resp BP Pulse Ox 97.5 F L 65 18 145/70 H 99 05/15/21 11:00 05/15/21 15:00 05/15/21 11:00 05/15/21 11:00 05/15/21 11:00 Oxygen Delivery Method Room Air Weight: 191 lb 5.78 oz Body Mass Index (BMI) 28.2 Intake & Output: Intake and Output for Last 24 Hours 05/13/21 05/14/21 05/15/21 23:59 23:59 23:59 Intake Total 1251.5 / 1251.5 992.5 / 1092.5 1490 / 1490 Output Total 200 / 200 Balance 1251.5 / 1251.5 992.5 / 892.5 1290 / 1290 Lab / Micro Data Result Diagrams: 05/16/21 05:45 05/16/21 05:45 Labs: Laboratory Results - last 24 hr 05/13/21 12:50: Diff Path Review Reviewed 05/14/21 06:48: Diff Path Review Reviewed 05/14/21 06:48: Ferritin 387, Lactate Dehydrogenase 275 H 05/14/21 17:44: Ammonia 14.0 05/15/21 06:00: WBC 2.2 L, RBC 3.46 L, Hgb 10.7 L, Hct 31.3 L, MCV 90.5, MCH 30.9, MCHC 34.2, RDW Std Deviation 43.9, RDW Coeff of Arron 13.2, Plt Count 101 L, MPV 10.0, Immature Gran % (Auto) 0.500, Neut % (Auto) 76.4 H, Lymph % (Auto) 6.3 L, [place] % (Auto) 15.8 H, Eos % (Auto) 0.5, Baso % (Auto) 0.5, Absolute Neuts (auto) 1.7 L, Absolute Lymphs (auto) 0.14 L, Nucleated RBC % 0, Differential Comment , Diff Path Review November05/15/21 06:00: Sodium 125 L, Potassium 4.0, Chloride 92 L, Carbon Dioxide 25.0, Anion Gap 8, BUN 24 H, Creatinine 0.89, Estim Creat Clear Calc 68.41, Est GFR (MDRD) Af Amer 107, Est GFR (MDRD) Non-Af 88, BUN/Creatinine Ratio 27.1 H, Glucose 117 H, Calcium 8.6, Total Bilirubin 1.50 H, AST 76 H, ALT 33, Alkaline Phosphatase 96, Total Protein 6.8, Albumin 2.9 L, Globulin 3.9, Albumin/Globulin Ratio 0.7 L Micro: Microbiology 05/13/21 13:20 Blood Culture (Wb) - Right Hand Blood Culture - Preliminary No growth in 48 hours. 05/13/21 12:50 Blood Culture (Wb) - Right Wrist Blood Culture - Preliminary No growth in 48 hours. Cardiology Labs/Tests 05/14/21 06:48: Ferritin 387 05/15/21 06:00: WBC 2.2 L, RBC 3.46 L, Hgb 10.7 L, Hct 31.3 L, MCV 90.5, MCH 30.9, MCHC 34.2, Plt Count 101 L, MPV 10.0, Immature Gran % (Auto) 0.500, Neut % (Auto) 76.4 H, Lymph % (Auto) 6.3 L, [place] % (Auto) 15.8 H, Eos % (Auto) 0.5, Baso % (Auto) 0.5, Absolute Neuts (auto) 1.7 L, Nucleated RBC % 0 05/15/21 06:00: Sodium 125 L, Potassium 4.0, Chloride 92 L, Carbon Dioxide 25.0, Anion Gap 8, BUN 24 H, Creatinine 0.89, Est GFR (MDRD) Af Amer 107, Est GFR (MDRD) Non-Af 88, BUN/Creatinine Ratio 27.1 H, Glucose 117 H, Calcium 8.6, Total Bilirubin 1.50 H Rhythm: Afib ECHO:05/14/21: Normal LV size. The estimated ejection fraction is 40 %. Mild segmental systolic dysfunction (see wall motion). Contrast injection was performed. Physical Exam Const alert, oriented x3 and no apparent distress General Appearance: cooperative HEENT hearing grossly normal bilaterally Head and Scalp: atraumatic Eyes EOMs intact bilaterally Neck General: normal visual inspection Chest inspection of chest normal and palpation of chest normal Resp normal respiratory effort Auscultation: clear to auscultation bilaterally Cardio regular rate, regular rhythm, S1 normal heart sound and S2 normal heart sound Jugular Venous Distention: JVD GI normal to inspection, nondistended, normoactive bowel sounds Extremity normal capillary refill and no pedal edema Peripheral Pulses: Yes pulses 2+ throughout and femoral pulses present Skin no rashes or lesions noted Neuro oriented x3 and CN's II-XII intact bilaterally Psych Appearance: grossly normal and appropriate Risk Stratification Risk Stratification Applicable: Yes Age >/= 65: Yes >/= 3 CAD Risk Factors (HTN, HLD, DM, family hx of CAD, or current smoker): No Aspirin Use in the Past 7 Days: Yes Severe Angina (>/= episodes in 24 hours): No EKG ST Changes >/= 0.5mm: No Positive Cardiac Marker: Yes NEISHA Risk Stratification Score: 3 NEISHA % Risk: 13% Risk Assessment & Plan Assessment/Plan (1) Non-ST elevation [place] (NSTEMI): (2) HTN (hypertension): (3) Atrial fibrillation, new onset: (4) Cardiomyopathy: PLAN: Patient is noted to have a non-ST elevation myocardial infarction. Suspect the above is likely demand ischemia. He has a number of metabolic issues going on with his hyponatremia and hypokalemia. The atrial fibrillation could also have triggered the above. * With the above concerns will treat medically * He will continue with his low dose BB, will add low dose ACEI. * d/t his thrombocytopenia do not feel that his can be started on an antiplatelet, but will start low dose ASA * D/t his cirrhoses and his his alcoholic hepatitis will not start statin * May consider stress test on OP basis He is in atrial fibrillation the duration of which is unclear at this particular time. * Would not recommend anticoagulation due to his significant alcohol use and his INR already being elevated with his thrombocytopenia and his significant bruising. * will continue with low dose BB for rate control His blood pressure appears to be under good control at this particular time * will treat with BB and PATSY. * with his hyponatremia will stop his hctz * may consider stopping his hydralazine and optimizing his PATSY and BB He does have a decreased EF. THis could be related to his Afib, ETOH use. * Will treat medically with BB and ACEI * will plan on repeating echo on OP basis Charges/Coding Visit Charges Inpatient E&M: 47124 Init Hosp L3 Documented by User: Dr. Jose A Diego MD 05/16/21 17:31 Lab / Micro Data Result Diagrams: 05/16/21 05:45 05/16/21 05:45 Assessment & Plan Assessment/Plan (1) Non-ST elevation NV (NSTEMI): (2) HTN (hypertension): (3) Atrial fibrillation, new onset: (4) Cardiomyopathy: (5) Cirrhosis: (6) Alcoholic hepatitis: (7) Anemia: (8) Pancytopenia: (9) Thrombocytopenia: PLAN: I reviewed all the current data regarding this patient and discussed in detail cardiac care plan and management As documented by the midlevel. We will continue medical treatment and agree for follow-up as an outpatient with repeating the echocardiogram and medical therapy. Very high risk patient due to alcoholic liver cirrhosis with thrombocytopenia
[2021-05-15] MEDS: hydrALAZINE 50 MG Tablet PO (21:19)
[2021-05-16] VITALS (12 sets, daily range): BP systolic 106–123; BP diastolic 59–71; PULSE 54–74; RESP 14–18; TEMP 36.2–36.6; O2SAT 98–100
[2021-05-16] MEDS: 0.9% Normal Saline 1,000 ML 75 ML IV (05:33)
[2021-05-16 07:11] LABS: Absolute Neutrophil Count 1.2 X10^3/uL (2.0-7.7); Basophil# 0.01 X10^3/uL; Basophil% 0.6 % (0-1); Eosinophil# 0.01 X10^3/uL; Eosinophils% 0.6 % (0-5); Hematocrit 28.7 % (40-54); Hemoglobin 9.9 g/dL (13.0-16.5); Lymphocyte % 11.6 % (19-41); Mean Corp Hgb Conc 34.5 g/dL (32-36); Mean Corpuscular Hgb 30.9 pg (27.0-32.0); Mean Corpuscular Volume 89.7 fL (80-94); Mean Platelet Vol. 10.3 fl (6.2-12.0); Monocyte# 0.29 X10^3/uL; Monocyte% 16.9 % (0-10); NRBC Flagged by Analyzer 0 % (0-5); Neutrophil % 69.7 % (47-70); POSITIVE DIFFERENTIAL YES; Platelet Count 104 K/mm3 (150-450); RBC Distribution Width CV 13.2 % (11.6-14.6); RBC Distribution Width SD 43.6 fl (35.1-43.9); White Blood Count 1.7 K/mm3 (4.4-11.0)
[2021-05-16 07:21] LABS: Differential Indicated SCAN CRITERIA MET
[2021-05-16 07:44] LABS: Anion Gap 9 (5-15); BUN 24 mg/dL (7-18); BUN/Creat Ratio 35.6 RATIO (10-20); Calcium,Total 8.6 mg/dL (8.5-10.1); Chloride 94 mmol/L (98-107); Creatinine, Serum 0.68 mg/dL (0.70-1.30); EST Glomerular Filtration Rate 121 mL/min (>60); Est Glom Filt Rate - Afr Amer 146 mL/min (>60); Estimated Creatinine Clearance 60.88 ml/min; Glucose 103 mg/dL (74-106); Potassium 3.5 mmol/L (3.5-5.1); Sodium Level 126 mmol/L (136-145)
[2021-05-16 09:47] LABS: Pathologist Review Reviewed
--- NOTE | 2021-05-16 10:21 | PN.CARD_ITS ---
Subjective Subjective no new complaints Objective Data Vital Signs: Vital Signs Temp Pulse Resp BP Pulse Ox 97.9 F 54 L 18 117/71 98 05/16/21 06:00 05/16/21 07:00 05/16/21 06:00 05/16/21 06:00 05/16/21 06:00 Oxygen Delivery Method Room Air Weight: 191 lb 5.78 oz Body Mass Index (BMI) 28.2 Intake & Output: Intake and Output for Last 24 Hours 05/14/21 05/15/21 05/16/21 23:59 23:59 23:59 Intake Total 992.5 / 1092.5 2625 / 2625 988.75 / 988.75 Output Total 200 / 200 300 / 300 Balance 992.5 / 892.5 2425 / 2425 688.75 / 688.75 Lab / Micro Data Result Diagrams: 05/16/21 05:45 05/16/21 05:45 Labs: Laboratory Results - last 24 hr 05/15/21 06:00: Diff Path Review Reviewed 05/16/21 05:45: WBC 1.7 L, RBC 3.20 L, Hgb 9.9 L, Hct 28.7 L, MCV 89.7, MCH 30.9, MCHC 34.5, RDW Std Deviation 43.6, RDW Coeff of Arron 13.2, Plt Count 104 L, MPV 10.3, Immature Gran % (Auto) 0.600, Neut % (Auto) 69.7, Lymph % (Auto) 11.6 L, [place] % (Auto) 16.9 H, Eos % (Auto) 0.6, Baso % (Auto) 0.6, Absolute Neuts (auto) 1.2 L, Absolute Lymphs (auto) 0.20 L, Nucleated RBC % 0, Differential Comment COMMENT, Diff Path Review November05/16/21 05:45: Sodium 126 L, Potassium 3.5, Chloride 94 L, Carbon Dioxide 23.0, Anion Gap 9, BUN 24 H, Creatinine 0.68 L, Estim Creat Clear Calc 60.88, Est GFR (MDRD) Af Amer 146, Est GFR (MDRD) Non-Af 121, BUN/Creatinine Ratio 35.6 H, Glucose 103, Calcium 8.6 Micro: Microbiology 05/13/21 13:20 Blood Culture (Wb) - Right Hand Blood Culture - Preliminary No growth in 48 hours. 05/13/21 12:50 Blood Culture (Wb) - Right Wrist Blood Culture - Preliminary No growth in 48 hours. Cardiology Labs/Tests 05/16/21 05:45: WBC 1.7 L, RBC 3.20 L, Hgb 9.9 L, Hct 28.7 L, MCV 89.7, MCH 30.9, MCHC 34.5, Plt Count 104 L, MPV 10.3, Immature Gran % (Auto) 0.600, Neut % (Auto) 69.7, Lymph % (Auto) 11.6 L, [place] % (Auto) 16.9 H, Eos % (Auto) 0.6, Baso % (Auto) 0.6, Absolute Neuts (auto) 1.2 L, Nucleated RBC % 0 05/16/21 05:45: Sodium 126 L, Potassium 3.5, Chloride 94 L, Carbon Dioxide 23.0, Anion Gap 9, BUN 24 H, Creatinine 0.68 L, Est GFR (MDRD) Af Amer 146, Est GFR (MDRD) Non-Af 121, BUN/Creatinine Ratio 35.6 H, Glucose 103, Calcium 8.6 Rhythm: Afib EKG: ECHO: 05/13/21: Normal LV size. The estimated ejection fraction is 40 %. Mild segmental systolic dysfunction (see wall motion). Contrast injection was performed. Radiography Diagnostic Testing: Radiology Impression Chest X-Ray 05/15/21 05:30 IMPRESSION: There is hyperinflation of the lungs consistent with chronic obstructive lung disease (COPD). Small bilateral pleural effusions. Electronically Signed: Agatha Carter MD at 3:18 EDT Tel , Service support , Physical Exam Const alert, oriented x3 and no apparent distress General Appearance: cooperative HEENT hearing grossly normal bilaterally Head and Scalp: atraumatic Eyes EOMs intact bilaterally Neck General: normal visual inspection Chest inspection of chest normal and palpation of chest normal Resp normal respiratory effort Auscultation: clear to auscultation bilaterally Cardio regular rate, regular rhythm, S1 normal heart sound and S2 normal heart sound Jugular Venous Distention: JVD GI normal to inspection, nondistended, normoactive bowel sounds Extremity normal capillary refill and no pedal edema Peripheral Pulses: Yes pulses 2+ throughout and femoral pulses present Skin no rashes or lesions noted Neuro oriented x3 and CN's II-XII intact bilaterally Psych Appearance: grossly normal and appropriate Risk Stratification Risk Stratification Applicable: No Assessment & Plan Assessment/Plan (1) Non-ST elevation [place] (NSTEMI): (2) HTN (hypertension): (3) Atrial fibrillation, new onset: (4) Cardiomyopathy: PLAN: Patient is noted to have a non-ST elevation myocardial infarction. Suspect the above is likely demand ischemia. He has a number of metabolic issues going on with his hyponatremia and hypokalemia. The atrial fibrillation could also have triggered the above. * With the above concerns will treat medically * He will continue with his low dose BB, will add low dose ACEI. * d/t his thrombocytopenia do not feel that his can be started on an antiplatelet, but will start low dose ASA * D/t his cirrhoses and his his alcoholic hepatitis will not start statin * May consider stress test on OP basis He is in atrial fibrillation the duration of which is unclear at this particular time. * Would not recommend anticoagulation due to his significant alcohol use and his INR already being elevated with his thrombocytopenia and his significant bruising. * will continue with low dose BB for rate control His blood pressure appears to be under good control at this particular time * will treat with BB and PATSY. * with his hyponatremia will stop his hctz * may consider stopping his hydralazine and optimizing his PATSY and BB * reviewed GI notes, okay to initiate aldactone, lasix and midodrine. Recommend close follow up of labs and BP. He does have a decreased EF. THis could be related to his Afib, ETOH use. * Will treat medically with BB and ACEI * will plan on repeating echo on OP basis Cirrhosis: * reviewed GI notes, okay to initiate aldactone, lasix and midodrine. Recommend close follow up of labs and BP.
[2021-05-16 11:09] LABS: HEPATITIS B SURFACE AG Negative (Negative); Hepatitis A IgM Antibody Negative (Negative); Hepatitis B Core AB IgM Negative (Negative)
[2021-05-16] MEDS: Lactated Ringers 1,000 ML 100 ML IV (11:30)
--- NOTE | 2021-05-16 12:03 | WOUNDNOTE ---
Pt is currently off the unit for testing.
--- NOTE | 2021-05-16 12:30 | EGD_PTH ---
PATIENT: BREEZY GLASS Jr. LOC: [facility] U#:[id number] AGE/SX: 80/M ROOM: [facility] RE05/13/[address]: Dr. Connor Negron MD : 1940 BED: 1 DIS: 05/16/2021 SPEC #: [id number] RECD: 05/16/21 13:56 STATUS: GONZALO RESanjauna #: [id number] POLY: 05/16/21 12:[address]: Walter Gallegos DEPT: SURGICAL PATHOLOGY RECD BY: Barb Villasenor ENTERED: 05/19/21 07:47 SP TYPE: EGD BIOPSY OTHR DR: MD Dr. Mick Negrete DO Dr. Nicholas F Kotsonis, MD Dr. Rahsaan Friend, DO [facility] Tissues: Esophagus, NOS Procedures: Special Stain Group II Surgery Specimen Level IV Alcian Blue/PAS (control) Comments: @ Ordering doctor for SUIV edited from to @ by JOSE EDUARDO at 05/19/21 0957 @ Submitting doctor edited from to @ by TRICEOD at 05/19/21 0957 HEADER OPERATION: EGD ([facility]) PRE-OP DIAGNOSIS: Cirrhosis, anemia TISSUE SUBMITTED: Distal esophagus biopsy MICROSCOPIC DIAGNOSIS Distal esophagus, biopsy: Fragments of gastroesophageal mucosa with mild chronic inflammation. Intestinal metaplasia (goblet cell metaplasia) not identified. See comment. PIERRE:sarah 05/20/2021 COMMENT Alcian blue/PAS stain with matched control is used in the evaluation of the specimen. The specimen predominantly consists of squamous mucosa. MICROSCOPIC DESCRIPTION Slides are reviewed. GROSS DESCRIPTION Received in fixative is one container labeled with the patient's name and designated distal esophagus biopsy. The specimen consists of multiple irregular fragments of light haskins soft tissue that in aggregate measure 1 x 0.2 x 0.1 cm. The specimen is totally submitted in one cassette. / AM:sarah 05/19/21 TC:3 CPT: 99373, 86228
--- NOTE | 2021-05-16 13:11 | OP.CCLET_ITS ---
04/02/2022 [facility] Re : Upper GI endoscopy procedure for [facility] This procedure was performed on Sunday, May 16, 2021. My impressions and recommendations are as follows: Impressions : - High-grade of narrowing and moderate Schatzki ring. Dilated. - LA Grade B reflux esophagitis. Biopsied. - Erythematous mucosa in the stomach. - Portal hypertensive gastropathy. Biopsied. Recommendations : - Return patient to referring hospital for ongoing care. - Resume regular diet today. - Use Protonix (pantoprazole) 40 mg PO BID for 12 weeks. - Return to my office in 2 days. My findings are described in the full procedure note, which is enclosed. If I can be of further assistance, please feel free to contact me at . Sincerely, Walter Friend, 05/16/2021 1:10:55 PM This report has been signed electronically.
--- NOTE | 2021-05-16 13:11 | OP.EGD_ITS ---
Patient Name: Salvador Borges Procedure Date: 05/16/2021 12:42 PM Date of : 1940 Age: 80 Procedure: Upper GI endoscopy Indications: Iron deficiency anemia Providers: Walter Gallegos DO Patient Profile: This is a 80 year old male. Refer to note in patient chart for documentation of history and physical. Patient has symptoms. Complications: No immediate complications. Procedure: Pre-Anesthesia Assessment: - Prior to the procedure, a History and Physical was performed, and patient medications and allergies were reviewed. The patient is competent. The risks and benefits of the procedure and the sedation options and risks were discussed with the patient. All questions were answered and informed consent was obtained. Patient identification and proposed procedure were verified by the physician in the pre-procedure area. Mental Status Examination: alert and oriented. Airway Examination: normal oropharyngeal airway and neck mobility. Respiratory Examination: clear to auscultation. CV Examination: normal. Prophylactic Antibiotics: The patient does not require prophylactic antibiotics. Prior Anticoagulants: The patient has taken no previous anticoagulant or antiplatelet agents. ASA Grade Assessment: II - A patient with mild systemic disease. After reviewing the risks and benefits, the patient was deemed in satisfactory condition to undergo the procedure. The anesthesia plan was to use moderate sedation / analgesia (conscious sedation). Immediately prior to administration of medications, the patient was re-assessed for adequacy to receive sedatives. The heart rate, respiratory rate, oxygen saturations, blood pressure, adequacy of pulmonary ventilation, and response to care were monitored throughout the procedure. The physical status of the patient was re-assessed after the procedure. After obtaining informed consent, the endoscope was passed under direct vision. Throughout the procedure, the patient's blood pressure, pulse, and oxygen saturations were monitored continuously. The gastroscope was introduced through the mouth, and advanced to the second part of duodenum. The upper GI endoscopy was accomplished without difficulty. The patient tolerated the procedure well. Moderate Sedation: Moderate (conscious) sedation was personally administered by an anesthesia professional. The following parameters were monitored: oxygen saturation, heart rate, blood pressure, and response to care. Total physician intraservice time was 15 minutes. Scope In: 12:55:41 PM Scope Out: 1:02:53 PM Total Procedure Duration Time 0 hours 7 minutes 12 seconds Findings: A high-grade of narrowing and moderate Schatzki ring was found in the distal esophagus. The scope was withdrawn. Dilation was performed with a Chen dilator with moderate resistance at 38 Fr. The dilation site was examined following endoscope reinsertion and showed complete resolution of luminal narrowing. Estimated blood loss was minimal. LA Grade B (one or more mucosal breaks greater than 5 mm, not extending between the tops of two mucosal folds) esophagitis with no bleeding was found 34 to 35 cm from the incisors. Biopsies were taken with a cold forceps for histology. Verification of patient identification for the specimen was done. Estimated blood loss was minimal. Diffuse severely erythematous mucosa with bleeding was found in the entire examined stomach. Severe portal hypertensive gastropathy was found in the entire examined stomach. Biopsies were taken with a cold forceps for Helicobacter pylori testing. The exam of the duodenum was otherwise normal. Impression: - High-grade of narrowing and moderate Schatzki ring. Dilated. - LA Grade B reflux esophagitis. Biopsied. - Erythematous mucosa in the stomach. - Portal hypertensive gastropathy. Biopsied. Recommendation: - Return patient to referring hospital for ongoing care. - Resume regular diet today. - Use Protonix (pantoprazole) 40 mg PO BID for 12 weeks. - Return to my office in 2 days. Procedure Code(s): --- Professional --- 00635, Esophagogastroduodenoscopy, flexible, transoral; with biopsy, single or multiple 54697, Dilation of esophagus, by unguided sound or bougie, single or multiple passes CPT copyright 2017 [employer]. All rights reserved. The codes documented in this report are preliminary and upon braille coder review may be revised to meet current compliance requirements. Walter Gallegos DO 05/16/2021 1:10:55 PM This report has been signed electronically. Number of Addenda: 1 Note Initiated On: 05/16/2021 12:42 PM Addendum Number: 1 Addendum Date: 04/02/2022 4:33:46 PM MAC was used instead of moderate sedation for this patient. Walter Gallegos DO 04/02/2022 4:33:51 PM This report has been signed electronically.
--- NOTE | 2021-05-16 13:14 | TREXTCAR_ITS ---
Diet 05/13/21 18:05 Diet: Cardiac - Heart Healthy Food consistency:: Regular Liquid Consistency:: Regular/Thin Is pt able to select menu?: No Routine Orders/Code Status Enema Type: Fleetz Enema Frequency: Daily PRN Suppository Type: Dulcolax 10mg Suppository Frequency: Daily PRN O2 Frequency: PRN Routine Lab Work: CBC (3 days) Code Status: DNRCC-A (no intubation) Wound(s) left elbow: Wound Type: Skin Tear Dressing Change: Adaptic left lateral forearm: Wound Type: Skin Tear Dressing Change: Adaptic Suggestions for Active Care Change Position every (hours): 2 Hours to sit in a chair: 2 Times a day to sit in chair: 3 Therapies Weight Bearing: Full weight bearing Physical Therapy: Eval and Treat Occupational Therapy: Eval and Treat Problem/Diagnosis (1) Non-ST elevation MS (NSTEMI): Status: Acute (2) HTN (hypertension): Status: Chronic (3) Atrial fibrillation, new onset: Status: Acute (4) Cardiomyopathy: Status: Acute Allergies/Procedures Done in Hospital Allergies No Known Allergies Allergy (Verified 05/13/21 12:45) Procedures: 2-D Echocardiogram and EGD Type of Care/Length of Stay Estimated LOS: Convalescent Care Less Than 30 days Type of Care Needed: Skilled Rehab Potential: Fair Prognosis: Fair Additional Orders/Day of Discharge Day of Discharge: 05/16/21 Discharge Plan Admission Admit Date/Time: 05/13/21 17:25 Primary Reason for Your Visit: Hyponatremia, Hypokalemia Attending Provider: Connor Negron Primary Care Provider: [facility],[place] Consulting Providers: Arias Lewis ; Walter Gallegos Discharge Orders/Prescriptions Prescriptions: New thiamine HCl (vitamin B1) [Vitamin B-1] 100 mg Tablet 100 mg PO BREAKFAST Qty: 0 RF: 0 carvedilol 3.125 mg Tablet 3.125 mg PO BID Qty: 0 RF: 0 folic acid 1 mg Tablet 1 mg PO BREAKFAST Qty: 0 RF: 0 lisinopril 2.5 mg Tablet 2.5 mg PO DAILY Qty: 0 RF: 0 pantoprazole 40 mg tablet,delayed release (DR/EC) 40 mg PO BID 30 Days Qty: 60 RF: 0 Continued amlodipine 5 mg tablet 5 mg PO DAILY 90 Days Qty: 90 RF: 0 hydralazine 50 mg tablet 50 mg PO TID 90 Days Qty: 540 RF: 0 triamcinolone acetonide 0.1 % cream 1 applic topical DAILY RF: 0 vitamin B complex Tablet 1 tab PO DAILY RF: 0 aspirin 81 mg Tablet 81 mg PO DAILY RF: 0 Discontinued hydrochlorothiazide 25 mg tablet 12.5 mg PO DAILY 90 Days Qty: 45 RF: 0 clobetasol 0.05 % cream 1 applic topical DAILY RF: 0 cephalexin 500 mg capsule 500 mg PO Q8H Qty: 21 RF: 0 Mucinex DM 30-600 mg Tablet Extended Release 12 Hr 1 tab PO Q12H PRN PRN (Reason: expectorant) RF: 0 calcium carbonate 500 mg Wafer 500 mg PO Q4H PRN PRN (Reason: Stomach Upset) RF: 0 [facility] - Disposition Disposition (needs filled in before D/C Order can be placed): Long-Term Facility
--- NOTE | 2021-05-16 13:28 | PCM.DC.SUM ---
Documented by User: PARAM Knox 05/16/21 13:35 Providers Date of Admission: 05/13/21 Primary Care Physician: [facility] Consultations 05/13/21 18:05 Consult: Onc/Wound/service operations manager Routine Comment: 05/13/21 21:15 Consult: Cardiology Routine Consulting Provider: Arias Lewis Reason for Consult: Elevated troponin EMERGENT Consult: No MD Notified: Yes Date Notified: 05/13/21 Time Notified: 21:16 Method of Notification: Verbal Method of Consult:: In-Person 05/14/21 14:50 Consult: Gastroenterology Routine Consulting Provider: Walter Gallegos Reason for Consult: Transaminitis, perihepatic fluid EMERGENT Consult: No MD Notified: Yes Date Notified: 05/14/21 Time Notified: 14:50 Method of Notification: Text Reason For Visit: AFIB,ELEVATD TROPONIN, HYPONATREMIA Diagnosis Discharge Diagnosis (1) Non-ST elevation ME (NSTEMI): Status: Acute Code(s): I21.4 - Non-ST elevation (NSTEMI) myocardial infarction (2) HTN (hypertension): Status: Chronic Code(s): I10 - Essential (primary) hypertension (3) Atrial fibrillation, new onset: Status: Acute Code(s): I48.91 - Unspecified atrial fibrillation (4) Cardiomyopathy: Status: Acute Code(s): I42.9 - Cardiomyopathy, unspecified Medications at Discharge Home Medications amlodipine 5 mg tablet 5 mg PO DAILY 90 Days #90 tab 08/29/18 hydralazine 50 mg tablet 50 mg PO TID 90 Days #540 tab 08/29/18 triamcinolone acetonide 0.1 % topical cream 1 applic TOPICAL DAILY 05/08/21 aspirin 81 mg PO DAILY 05/15/21 vitamin B complex 1 tab PO DAILY 05/15/21 carvedilol 3.125 mg PO BID #0 tab 05/16/21 folic acid 1 mg PO BREAKFAST #0 tab 05/16/21 lisinopril 2.5 mg PO DAILY #0 tab 05/16/21 pantoprazole 40 mg PO BID 30 Days #60 tab 05/16/21 thiamine HCl (vitamin B1) [Vitamin B-1] 100 mg PO BREAKFAST #0 tab 05/16/21 Hospital Course Operations None Procedures 2-D Echocardiogram and EGD Summary of Care Provided Minutes Spent on Discharge: 35 Hospital Course: Patient is a 80-year-old male who presented with complaints of frequent falls and alcohol use. Patient was noted to be in atrial fibrillation which is new for the patient. During patient's stay he underwent a EGD which demonstrated high-grade of narrowing and moderate Schatzki ring, LA grade B reflux esophagitis, erythematous mucosa in the stomach, portal hypertensive gastropathy. Multiple areas were biopsied by Dr. Gallegos during the procedure. Patient will be continued on Protonix 40 mg p.o. twice daily for 12 weeks per his recommendations and he will follow up in the outpatient office. Patient will also follow-up with cardiology outpatient for new onset atrial fibrillation and further evaluation. Patient will continue on beta-fermin, PATSY inhibitor. Hydrochlorothiazide DC'd. Patient blood pressure stable. Patient will be discharged to TCU for further PT and OT due to frequent falls at home. Physical Exam Const alert, oriented x3 and no apparent distress General Appearance: cooperative Orientation / Consciousness: awake HEENT normocephalic, head/scalp atraumatic and moist oral mucous membranes Eyes conjunctivae normal and no scleral icterus Neck full ROM, no lymphadenopathy and supple General: trachea midline Resp normal respiratory effort, normal air movement, no retractions, no use of accessory muscles and clear to auscultation bilaterally Effort and Inspection: able to speak in complete sentences Cardio regular rate, S1 normal heart sound, S2 normal heart sound and no murmurs Rhythm: abnormal rhythm irregularly irregular Peripheral Pulses: pulses 2+ throughout GI normal to inspection, nondistended, normoactive bowel sounds, soft to palpation and non-tender Extremity normal to inspection, full ROM and no clubbing, cyanosis or edema Skin no rashes or lesions noted and skin turgor normal General Skin Exam: ecchymosis and skin tear(s) Neuro moves all extremities, no focal motor deficits and no sensory deficits noted Sensorium / Orientation: awake and alert Motor Exam: general weakness Psych mental status grossly normal and affect normal Weight / BMI Weight Weight: 191 lb 5.78 oz Body Mass Index (BMI) 28.2 ABG / Lab / Microbiology Data Result Diagrams: 05/16/21 05:45 05/16/21 05:45 Laboratory: Laboratory Results - last 24 hr 05/15/21 06:00: Diff Path Review Reviewed 05/16/21 05:45: WBC 1.7 L, RBC 3.20 L, Hgb 9.9 L, Hct 28.7 L, MCV 89.7, MCH 30.9, MCHC 34.5, RDW Std Deviation 43.6, RDW Coeff of Arron 13.2, Plt Count 104 L, MPV 10.3, Immature Gran % (Auto) 0.600, Neut % (Auto) 69.7, Lymph % (Auto) 11.6 L, [place] % (Auto) 16.9 H, Eos % (Auto) 0.6, Baso % (Auto) 0.6, Absolute Neuts (auto) 1.2 L, Absolute Lymphs (auto) 0.20 L, Nucleated RBC % 0, Differential Comment COMMENT, Diff Path Review November05/16/21 05:45: Sodium 126 L, Potassium 3.5, Chloride 94 L, Carbon Dioxide 23.0, Anion Gap 9, BUN 24 H, Creatinine 0.68 L, Estim Creat Clear Calc 60.88, Est GFR (MDRD) Af Amer 146, Est GFR (MDRD) Non-Af 121, BUN/Creatinine Ratio 35.6 H, Glucose 103, Calcium 8.6 Microbiology: Microbiology 05/13/21 13:20 Blood Culture (Wb) - Right Hand Blood Culture - Preliminary No growth in 48 hours. 05/13/21 12:50 Blood Culture (Wb) - Right Wrist Blood Culture - Preliminary No growth in 48 hours. 05/13/21 12:50 Nasal Secretion SARS-CoV-2 Antigen (Rapid) - Final Radiography Diagnostic Testing: Radiology Impression Chest X-Ray 05/15/21 05:30 IMPRESSION: There is hyperinflation of the lungs consistent with chronic obstructive lung disease (COPD). Small bilateral pleural effusions. Electronically Signed: Agatha Carter MD at 3:18 EDT Tel , Service support , D/C Instructions Discharge Diet: Low fat / Low cholesterol Call your doctor if you observe: Shortness of breath, Fainting spells and Chest pain Please Follow Up With: FriendWalter DO When: Wednesday05/19/2021 Meaningful Use Info Meaningful Use Diagnoses (Choose all that apply): None applicable Discharge Plan Admission Admit Date/Time: 05/13/21 17:25 Primary Reason for Your Visit: Hyponatremia, Hypokalemia Attending Provider: oCnnor Negron Primary Care Provider: [facility] Consulting Providers: Arias Lewis ; Walter Gallegos Discharge Orders/Prescriptions Prescriptions: New thiamine HCl (vitamin B1) [Vitamin B-1] 100 mg Tablet 100 mg PO BREAKFAST Qty: 0 RF: 0 carvedilol 3.125 mg Tablet 3.125 mg PO BID Qty: 0 RF: 0 folic acid 1 mg Tablet 1 mg PO BREAKFAST Qty: 0 RF: 0 lisinopril 2.5 mg Tablet 2.5 mg PO DAILY Qty: 0 RF: 0 pantoprazole 40 mg tablet,delayed release (DR/EC) 40 mg PO BID 30 Days Qty: 60 RF: 0 Continued amlodipine 5 mg tablet 5 mg PO DAILY 90 Days Qty: 90 RF: 0 hydralazine 50 mg tablet 50 mg PO TID 90 Days Qty: 540 RF: 0 triamcinolone acetonide 0.1 % cream 1 applic topical DAILY RF: 0 vitamin B complex Tablet 1 tab PO DAILY RF: 0 aspirin 81 mg Tablet 81 mg PO DAILY RF: 0 Discontinued hydrochlorothiazide 25 mg tablet 12.5 mg PO DAILY 90 Days Qty: 45 RF: 0 clobetasol 0.05 % cream 1 applic topical DAILY RF: 0 cephalexin 500 mg capsule 500 mg PO Q8H Qty: 21 RF: 0 Mucinex DM 30-600 mg Tablet Extended Release 12 Hr 1 tab PO Q12H PRN PRN (Reason: expectorant) RF: 0 calcium carbonate 500 mg Wafer 500 mg PO Q4H PRN PRN (Reason: Stomach Upset) RF: 0 Referrals / Follow Up: [facility] [Primary Care Provider] - Disposition Disposition (needs filled in before D/C Order can be placed): Long-Term Facility Documented by User: Dr. Connor Negron MD 05/16/21 14:30 Providers Date of Admission: 05/13/21 Reason For Visit: AFIB,ELEVATD TROPONIN, HYPONATREMIA Medications at Discharge Home Medications amlodipine 5 mg tablet 5 mg PO DAILY 90 Days #90 tab 08/29/18 hydralazine 50 mg tablet 50 mg PO TID 90 Days #540 tab 08/29/18 triamcinolone acetonide 0.1 % topical cream 1 applic TOPICAL DAILY 05/08/21 aspirin 81 mg PO DAILY 05/15/21 vitamin B complex 1 tab PO DAILY 05/15/21 carvedilol 3.125 mg PO BID #0 tab 05/16/21 folic acid 1 mg PO BREAKFAST #0 tab 05/16/21 lisinopril 2.5 mg PO DAILY #0 tab 05/16/21 pantoprazole 40 mg PO BID 30 Days #60 tab 05/16/21 thiamine HCl (vitamin B1) [Vitamin B-1] 100 mg PO BREAKFAST #0 tab 05/16/21 ABG / Lab / Microbiology Data Result Diagrams: 05/16/21 05:45 05/16/21 05:45 Discharge Plan Admission Admit Date/Time: 05/13/21 17:25 Primary Reason for Your Visit: Hyponatremia, Hypokalemia Attending Provider: Connor Negron Primary Care Provider: [facility] Consulting Providers: Arias Lewis ; Walter Gallegos Discharge Orders/Prescriptions Prescriptions: New thiamine HCl (vitamin B1) [Vitamin B-1] 100 mg Tablet 100 mg PO BREAKFAST Qty: 0 RF: 0 carvedilol 3.125 mg Tablet 3.125 mg PO BID Qty: 0 RF: 0 folic acid 1 mg Tablet 1 mg PO BREAKFAST Qty: 0 RF: 0 lisinopril 2.5 mg Tablet 2.5 mg PO DAILY Qty: 0 RF: 0 pantoprazole 40 mg tablet,delayed release (DR/EC) 40 mg PO BID 30 Days Qty: 60 RF: 0 Continued amlodipine 5 mg tablet 5 mg PO DAILY 90 Days Qty: 90 RF: 0 hydralazine 50 mg tablet 50 mg PO TID 90 Days Qty: 540 RF: 0 triamcinolone acetonide 0.1 % cream 1 applic topical DAILY RF: 0 vitamin B complex Tablet 1 tab PO DAILY RF: 0 aspirin 81 mg Tablet 81 mg PO DAILY RF: 0 Discontinued hydrochlorothiazide 25 mg tablet 12.5 mg PO DAILY 90 Days Qty: 45 RF: 0 clobetasol 0.05 % cream 1 applic topical DAILY RF: 0 cephalexin 500 mg capsule 500 mg PO Q8H Qty: 21 RF: 0 Mucinex DM 30-600 mg Tablet Extended Release 12 Hr 1 tab PO Q12H PRN PRN (Reason: expectorant) RF: 0 calcium carbonate 500 mg Wafer 500 mg PO Q4H PRN PRN (Reason: Stomach Upset) RF: 0 [facility]errals [facility] - Disposition Disposition (needs filled in before D/C Order can be placed): Long-Term Facility Charges/Coding Addendum Addendum: Dr. Negron: I personally reviewed the chart and examined the patient, and agree with the above findings. 80-year-old male with a history of alcoholism who quit drinking 2 to 3 weeks ago presents after multiple falls at home. He was found to have an elevated troponin and because it did rise cardiology was consulted and felt this was demand ischemia. Echo demonstrated an EF of 40% with mild segmental systolic dysfunction. Will await cardiology's recommendations, as he also had an new onset A. fib which may have contributed to the elevated troponin as well. Also of note he did have a distended abdomen with elevated LFTs and abdominal ultrasound was obtained which did show some mild hepatomegaly and perihepatic fluid, given the history of his drinking this could be early cirrhosis. We will get a consult from gastroenterology as well for outpatient follow-up. Currently states that he feels well, denies any abdominal pain or chest pain, denies any shortness of breath. 05/15/2021: Doing well today, plan for an EGD in the morning by GI. We will continue to treat his cardiac issues medically per recommendations by cardiology secondary to his metabolic concerns with A. fib and hyponatremia and hypokalemia. He is a little bit anemic, with his hemoglobin over 10, I do understand the recommendation for keeping his hematocrit greater than 40 however there is a national blood shortage so we will hold off at this time. 05/16/2021: Doing well, EGD was unremarkable, continue PPI twice daily on discharge to transitional care unit. We will continue with medical management of his non-STEMI. He will need to follow-up with cardiology as an outpatient. He will also need to follow-up with gastroenterology as an outpatient for further follow-up. This was discussed extensively with his who was at bedside today after the EGD. Will need to follow-up with cardiology if Lasix, Aldactone, and midodrine will be able to be used to help his liver disease in the setting of his non-STEMI, I do not see a significant issue with these medications in these conditions however will defer to cardiology as they are on consult. I discussed with him and his the plan for discharge today and he expressed understanding of the risk and benefits and would like to go to SNF today. Visit Charges Inpatient E&M: [id number] Disch Hosp
[2021-05-16 13:32] LABS: Hep C Antibodies <0.1 s/co ratio (0.0-0.9)
--- NOTE | 2021-05-16 14:04 | CASEMGMT ---
Patient is ready for discharge to TCU. SW spoke with patient and his and they are aware of the discharge. Plan: d/c to [facility] TCU under skilled level of care. Jahaira BULL
[2021-05-16 14:10] LABS: ANTINUCLEAR ANTIBODIES DIRECT Negative (Negative)
[2021-05-16] MEDS: Folic Acid 1 MG Tablet PO (14:16)
[2021-05-16] MEDS: Aspirin 81 MG TAB.CHEW PO (14:16)
[2021-05-16] MEDS: Lisinopril 2.5 MG Tablet PO (14:16)
[2021-05-16] MEDS: amLODIPine 5 MG Tablet PO (14:16)
[2021-05-16] MEDS: Thiamine Hydrochloride 100 MG Tablet PO (14:16)
[2021-05-16] MEDS: rifAXIMin 550 MG Tablet PO (14:17)
[2021-05-16] MEDS: Vitamin B Comp W-C Capsule 1 CAP PO (14:17)
[2021-05-16] MEDS: Pentoxifylline 400 MG Tablet PO (14:17)
[2021-05-16] MEDS: hydrALAZINE 50 MG Tablet PO (14:18)
--- NOTE | 2021-05-16 14:56 | NURSING ---
Addendum entered by Leidy Butcher 05/16/21 14:58: Claribel called this RN and informed that patient is going to room 15. Original Note: report called to TCU & given to Claribel. Pt to go to room 2.
[2021-05-16 15:58] LABS: Alpha Antitrypsin Serum 226 mg/dL (101-187); Anti-Mitochondrial AB <20.0 Units (0.0-20.0)
[2021-05-19 09:21] LABS: Pathologist Review Reviewed
[2021-05-20 07:07] LABS: Angiotensin Convert Enzyme 24 U/L (14-82); Ceruloplasmin 28.5 mg/dL (16.0-31.0)
[2021-05-20 08:09] LABS: Anti-Smooth Muscle ABS 6 Units (0-19); Copper, Serum or Plasma 173 ug/dL (69-132)
== END 2021-05-16 16:14 | disposition skilled nursing facility (03) | DRG 432 ==
LOC: ED 17:15 → PCU 17:40
PROVIDERS: Internal Medicine Gastroenterology; Nurse Practitioner Family; Emergency Provider Emergency Medicine; Visit Provider Family Medicine
PROC: 0DJ08ZZ Inspection of Upper Intestinal Tract, Via Natural or Artificial Opening Endoscopic (ICD-10-PCS; CPT 43235; principal; 2021-05-16 12:25)
DX: K70.30 Alcoholic cirrhosis of liver without ascites (principal); I21.A1 Myocardial infarction type 2; K76.6 Portal hypertension; E87.1 Hypo-osmolality and hyponatremia; E87.2 Acidosis; D68.9 Coagulation defect, unspecified; D61.818 Other pancytopenia; I48.91 Unspecified atrial fibrillation; K20.90 Esophagitis, unspecified without bleeding; K22.2 Esophageal obstruction; K31.89 Other diseases of stomach and duodenum; R29.6 Repeated falls; E87.6 Hypokalemia; R50.9 Fever, unspecified; R53.81 Other malaise; Z66 Do not resuscitate; I10 Essential (primary) hypertension; R05.9 Cough, unspecified; F10.20 Alcohol dependence, uncomplicated; E86.0 Dehydration; K70.10 Alcoholic hepatitis without ascites; Z91.81 History of falling
CPT/HCPCS: 36415; 71045; 71046; 76705; 80048; 80053; 80061; 80074; 81001; 82103; 82140; 82164; 82306; 82390; 82525; 82533; 82728; 83516; 83605; 83615; 83690; 83735; 83880; 83930; 83935; 84300; 84443; 84484; 85025; 85610; 85730; 86038; 86225; 86235; 87040; 87426; 87635; 88305; 88313; 92610; 93005; 93306; 97162; 97166; 97530; 99285; J7030; J7040; J7050; J7120; Q9957; U0005; 90686; A4216; C1769; C8929; J2405; J3490; U0003

== ENCOUNTER 2021-05-16 16:14 | Inpatient (IN) | payer MEDICARE, SELFPAY ==
[2021-05-16 16:33] VITALS: BP 131/69; PULSE 60; RESP 16; TEMP 35.8; O2SAT 96
[2021-05-16 17:20] VITALS: BMI 28.2
[2021-05-16] MEDS: Pantoprazole Sodium 40 MG Tablet PO (17:43)
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
[2021-05-16 19:45] VITALS: PULSE 53; RESP 16; O2SAT 97
[2021-05-16 21:49] VITALS: BP 111/64; PULSE 71
[2021-05-16] MEDS: Carvedilol 3.125 MG TABLET PO (21:49)
[2021-05-16] MEDS: Senna/Docusate Sodium 1 Tablet PO (21:49)
[2021-05-16] MEDS: hydrALAZINE 50 MG Tablet PO (21:49)
[2021-05-17 05:42] VITALS: BP 105/66; PULSE 63
[2021-05-17] MEDS: amLODIPine 5 MG Tablet PO (05:42)
[2021-05-17] MEDS: Carvedilol 3.125 MG TABLET PO ×2 (05:42→18:43)
[2021-05-17] MEDS: hydrALAZINE 50 MG Tablet PO ×2 (05:42→13:07)
[2021-05-17] MEDS: Senna/Docusate Sodium 1 Tablet PO ×2 (05:42→18:43)
[2021-05-17] MEDS: Polyethylene Glycol 3350 17 GM PACKET PO (05:42)
[2021-05-17] MEDS: Lisinopril 2.5 MG Tablet PO (05:42)
[2021-05-17] MEDS: Pantoprazole Sodium 40 MG Tablet PO ×2 (05:43→18:43)
[2021-05-17 07:00] LABS: Absolute Lymphocyte Count 0.27 X10^3/uL (0.83-4.51); Absolute Neutrophil Count 1.9 X10^3/uL (2.0-7.7); Basophil# 0.01 X10^3/uL; Basophil% 0.4 % (0-1); Eosinophil# 0.05 X10^3/uL; Hematocrit 30.2 % (40-54); Hemoglobin 10.2 g/dL (13.0-16.5); Lymphocyte # 0.27 X10^3/ul (0.83-4.51); Lymphocyte % 11.1 % (19-41); Mean Corp Hgb Conc 33.8 g/dL (32-36); Mean Corpuscular Hgb 30.7 pg (27.0-32.0); Mean Platelet Vol. 10.5 fl (6.2-12.0); Monocyte# 0.22 X10^3/uL; NRBC Flagged by Analyzer 0 % (0-5); Neutrophil # 1.88 X10^3/uL (2.7-7.7); Neutrophil % 77.1 % (47-70); POSITIVE DIFFERENTIAL YES; Platelet Count 126 K/mm3 (150-450); RBC Distribution Width CV 13.2 % (11.6-14.6); RBC Distribution Width SD 43.8 fl (35.1-43.9); Red Blood Count 3.32 M/mm3 (4.6-6.2); White Blood Count 2.4 K/mm3 (4.4-11.0)
[2021-05-17 07:05] LABS: Differential Indicated SCAN CRITERIA MET
[2021-05-17 07:50] LABS: Anion Gap 11 (5-15); BUN 26 mg/dL (7-18); BUN/Creat Ratio 30.3 RATIO (10-20); Chloride 94 mmol/L (98-107); Creatinine, Serum 0.86 mg/dL (0.70-1.30); EST Glomerular Filtration Rate 92 mL/min (>60); Est Glom Filt Rate - Afr Amer 111 mL/min (>60); Estimated Creatinine Clearance 69.65 ml/min; Glucose 151 mg/dL (74-106); Potassium 3.6 mmol/L (3.5-5.1); Sodium Level 127 mmol/L (136-145)
[2021-05-17] MEDS: Aspirin 81 MG TAB.CHEW PO (09:13)
[2021-05-17] MEDS: Folic Acid 1 MG Tablet PO (09:13)
[2021-05-17] MEDS: Thiamine Hydrochloride 100 MG Tablet PO (09:13)
[2021-05-17] MEDS: Vitamin B Comp W-C Capsule 1 CAP PO (09:13)
[2021-05-17] MEDS: Tuberculin,Purif.prot.deriv. 50 TU/ML Vial 0.1 ML ID (12:08)
[2021-05-17 13:07] VITALS: BP 106/52; PULSE 61
[2021-05-17 15:37] VITALS: BP 106/52; PULSE 61; RESP 14; TEMP 36.6; O2SAT 95
[2021-05-17 15:41] VITALS: PULSE 61; RESP 16; O2SAT 95
[2021-05-17 20:39] VITALS: BP 110/53; PULSE 57
[2021-05-18] MEDS: Lisinopril 2.5 MG Tablet PO (05:35)
[2021-05-18] MEDS: Carvedilol 3.125 MG TABLET PO ×2 (05:35→17:31)
[2021-05-18] MEDS: Pantoprazole Sodium 40 MG Tablet PO ×2 (05:35→17:31)
[2021-05-18] MEDS: Senna/Docusate Sodium 1 Tablet PO ×2 (05:35→17:31)
[2021-05-18] MEDS: Polyethylene Glycol 3350 17 GM PACKET PO (05:36)
[2021-05-18] MEDS: amLODIPine 5 MG Tablet PO (05:40)
[2021-05-18 05:43] VITALS: BP 110/64; PULSE 66
[2021-05-18] MEDS: hydrALAZINE 50 MG Tablet PO (05:43)
[2021-05-18] MEDS: Folic Acid 1 MG Tablet PO (08:01)
[2021-05-18] MEDS: Vitamin B Comp W-C Capsule 1 CAP PO (08:01)
[2021-05-18] MEDS: Aspirin 81 MG TAB.CHEW PO (08:01)
[2021-05-18] MEDS: Thiamine Hydrochloride 100 MG Tablet PO (08:01)
[2021-05-18 13:33] VITALS: BP 104/55; PULSE 52; RESP 18; TEMP 36.6; O2SAT 99
[2021-05-18 17:32] VITALS: BP 115/64; PULSE 111
[2021-05-18 21:59] VITALS: BP 106/49; PULSE 52
[2021-05-18 23:21] VITALS: PULSE 52; RESP 12; O2SAT 98
[2021-05-19] MEDS: Polyethylene Glycol 3350 17 GM PACKET PO (06:29)
[2021-05-19 06:32] VITALS: BP 120/73; PULSE 66
[2021-05-19] MEDS: Pantoprazole Sodium 40 MG Tablet PO ×2 (06:32→18:16)
[2021-05-19] MEDS: Carvedilol 3.125 MG TABLET PO ×2 (06:32→18:16)
[2021-05-19] MEDS: hydrALAZINE 50 MG Tablet PO ×3 (06:32→22:11)
[2021-05-19] MEDS: amLODIPine 5 MG Tablet PO (06:32)
[2021-05-19] MEDS: Lisinopril 2.5 MG Tablet PO (06:32)
[2021-05-19] MEDS: Senna/Docusate Sodium 1 Tablet PO ×2 (06:32→18:15)
[2021-05-19] MEDS: Folic Acid 1 MG Tablet PO (08:41)
[2021-05-19] MEDS: Thiamine Hydrochloride 100 MG Tablet PO (08:41)
[2021-05-19] MEDS: Aspirin 81 MG TAB.CHEW PO (08:41)
[2021-05-19] MEDS: Vitamin B Comp W-C Capsule 1 CAP PO (09:29)
[2021-05-19 14:00] VITALS: BP 124/51; PULSE 60
[2021-05-19 15:46] LABS: Pathologist Review Reviewed
[2021-05-19 16:00] VITALS: BP 109/55; PULSE 57; RESP 16; TEMP 37; O2SAT 97
--- NOTE | 2021-05-19 16:26 | CASEMGMT ---
Social Work Met with patient for initial assessment. Discussed code status. Pt confirmed full code. MOLST form completed, communication to , placed in chart. Explained [facility] insurance with [employer]D 05/22 and continued stay is not guaranteed. The goal is for pt to return home with at [facility]. cannot extensively assist pt. Pt was independent prior using no AD and has steps he managed in his own. SW to continue to follow to assist with DC planning. Adriane Garcia, [employer] 1 [employer]
--- NOTE | 2021-05-19 16:54 | PCM.PN.RX ---
Progress Note - Pharmacy Subjective: [] TCU Admission Objective: Allergies No Known Allergies Allergy (Verified 05/13/21 12:45) Current Medications Generic Name Dose Route Start Last Admin Trade Name Sukhdev PRN Reason Stop Dose Admin Acetaminophen 1,000 mg 05/16/21 20:00 Acetaminophen 500 Mg Tablet PO Q6H PRN PRN Pain Score 1-10 Amlodipine Besylate 5 mg 05/17/21 06:00 05/19/21 06:32 Amlodipine 5 Mg Tablet PO 5 mg DAILY EVELYN Administration Aspirin 81 mg 05/17/21 08:00 05/19/21 08:41 Aspirin 81 Mg Tab.Chew PO 81 mg BREAKFAST EVELYN Administration Betamethasone Valerate 1 applic 05/17/21 06:00 05/19/21 06:35 Betamethasone Valerate 0.1% Cream TOPICAL 1 applic DAILY EVELYN Administration Bisacodyl 10 mg 05/16/21 17:16 Bisacodyl 10 Mg Suppository RC DAILY PRN Constipation COVID-19 Vaccine mRNA LNP-S (PFR) (PF) 30 mcg 05/20/21 11:00 Covid-19 Vacc, Mrna(Pfizer)/Pf 30 Mcg/0.3 Ml Syringe IM 05/20/21 11:01 .ONCE ONE Carvedilol 3.125 mg 05/16/21 18:00 05/19/21 06:32 Carvedilol 3.125 Mg Tablet PO 3.125 mg BID EVELYN Administration Folic Acid 1 mg 05/17/21 08:00 05/19/21 08:41 Folic Acid 1 Mg Tablet PO 1 mg BREAKFAST EVELYN Administration Hydralazine HCl 50 mg 05/16/21 22:00 05/19/21 14:00 Hydralazine 50 Mg Tablet PO 50 mg TID EVELYN Administration Lisinopril 2.5 mg 05/17/21 06:00 05/19/21 06:32 Lisinopril 2.5 Mg Tablet PO 2.5 mg DAILY EVELYN Administration Multivitamins 1 capsule 05/17/21 08:00 05/19/21 09:29 Vitamin B Comp W-C Capsule PO 1 capsule 0800 EVELYN Administration Pantoprazole Sodium 40 mg 05/16/21 18:00 05/19/21 06:32 Pantoprazole Sodium 40 Mg Tablet PO 40 mg BID EVELYN Administration Polyethylene Glycol 17 gm 05/17/21 06:00 05/19/21 06:29 Polyethylene Glycol 3350 17 Gm Packet PO 17 gm DAILY EVELYN Administration Senna/Docusate Sodium 1 tablet 05/16/21 20:15 05/19/21 06:32 Senna/Docusate Sodium 1 Tablet PO 1 tablet BID EVELYN Administration Sodium Chloride 10 - 40 ml 05/16/21 17:17 0.9% Saline Lock 10 Ml Syringe IV UD PRN SALINE FLUSH Thiamine HCl 100 mg 05/17/21 08:00 05/19/21 08:41 Thiamine Hydrochloride 100 Mg Tablet PO 100 mg BREAKFAST EVELYN Administration Tuberculin PPD 0.1 ml 05/24/21 10:00 Tuberculin,Purif.Prot.Deriv. 50 Tu/Ml Vial ID 05/24/21 10:01 X1 ONE Problem List (Last Reviewed 05/16/21 @ 19:[address] Kumar Serrato MD) Hypertension (Chronic) Hemorrhoids (Acute) Asthma (Acute) Alcoholic hepatitis (Acute) Aspiration pneumonia (Acute) Alcohol abuse (Acute) NSTEMI (non-ST elevated myocardial infarction) (Acute) Atrial fibrillation (Acute) Hypokalemia (Acute) Hyponatremia (Acute) Weakness (Acute) Debility (Acute) Vital Signs Temp Pulse Resp BP Pulse Ox 97.9 F 60 12 124/51 H 98 05/18/21 13:33 05/19/21 14:00 05/18/21 23:21 05/19/21 14:00 05/18/21 23:21 Oxygen Delivery Method Room Air Weight: 86.8 kg Body Mass Index (BMI) 28.2 Sodium 127 mmol/L (136-145) L 05/17/21 06:36 Potassium 3.6 mmol/L (3.5-5.1) 05/17/21 06:36 Chloride 94 mmol/L (98-107) L 05/17/21 06:36 Carbon Dioxide 22.0 mmol/L (21.0-32.0) 05/17/21 06:36 Anion Gap 11 (5-15) 05/17/21 06:36 BUN 26 mg/dL (7-18) H 05/17/21 06:36 Creatinine 0.86 mg/dL (0.70-1.30) 05/17/21 06:36 Est GFR (MDRD) Af Amer 111 mL/min (>60) 05/17/21 06:36 Est GFR (MDRD) Non-Af 92 mL/min (>60) 05/17/21 06:36 BUN/Creatinine Ratio 30.3 RATIO (10-20) H 05/17/21 06:36 Glucose 151 mg/dL (74-106) H 05/17/21 06:36 Assessment/Plan: 1) Pain: Acetaminophen 1000mg po q6h prn for pain 1-10. Please continue to monitor prn usage and for signs/symptoms of increased/decreased pain. 2) Rash: Betamethasone Valerate cream 0.1% apply topically daily. Please continue to monitor rash. 3) Gastritis: Pantoprazole 40mg bid. Please continue to monitor for signs/symptoms of improved/worsening gastritis. 4) Hypertension, CAD, AFib: Amlodipine 5mg po daily, Carvedilol 3.125mg po bid, Aspirin 81mg po daily with breakfast, Hydralazine 50mg po tid, Lisinopril 2.5mg po daily. Pts average BP is 110.6/57.9. Please continue to monitor. Pts pulse is irregular and average rate is 63.8. Please continue to monitor. Pts K+ is 3.6, and BUN is 26. Please continue to monitor. Psychotropic Medications: none Unnecessary Medications: none Bowel Regimen: Bisacodyl 10mg suppository daily prn for constipation, Miralax 17gm po daily, Senna/Docusate 1 tablet po bid. Please continue to monitor prn usage and for signs/symptoms of constipation/diarrhea Date of Note:: 05/19/21
[2021-05-19 20:18] VITALS: PULSE 57; RESP 14; O2SAT 97
[2021-05-19 22:11] VITALS: BP 111/56; PULSE 60
[2021-05-20] VITALS (7 sets, daily range): BP systolic 106–126; BP diastolic 47–58; PULSE 55–63; RESP 14–16; TEMP 36.6; O2SAT 99–100
[2021-05-20] MEDS: Polyethylene Glycol 3350 17 GM PACKET PO (05:39)
[2021-05-20] MEDS: amLODIPine 5 MG Tablet PO (05:39)
[2021-05-20] MEDS: Pantoprazole Sodium 40 MG Tablet PO ×2 (05:40→17:31)
[2021-05-20] MEDS: Lisinopril 2.5 MG Tablet PO (05:40)
[2021-05-20] MEDS: Senna/Docusate Sodium 1 Tablet PO ×2 (05:40→17:31)
[2021-05-20] MEDS: Carvedilol 3.125 MG TABLET PO ×2 (05:40→17:31)
[2021-05-20] MEDS: hydrALAZINE 50 MG Tablet PO (05:40)
[2021-05-20] MEDS: Folic Acid 1 MG Tablet PO (08:41)
[2021-05-20] MEDS: Thiamine Hydrochloride 100 MG Tablet PO (08:41)
[2021-05-20] MEDS: Aspirin 81 MG TAB.CHEW PO (08:41)
[2021-05-20] MEDS: Vitamin B Comp W-C Capsule 1 CAP PO (08:41)
[2021-05-20] MEDS: Menthol/Lanolin/Calamine/Znox 113 GM Tube 1 APPLIC TOPICAL (21:23)
[2021-05-21] MEDS: Polyethylene Glycol 3350 17 GM PACKET PO (06:20)
[2021-05-21 06:21] VITALS: BP 116/64; PULSE 62
[2021-05-21] MEDS: amLODIPine 5 MG Tablet PO (06:21)
[2021-05-21] MEDS: Menthol/Lanolin/Calamine/Znox 113 GM Tube 1 APPLIC TOPICAL ×2 (06:21→20:34)
[2021-05-21] MEDS: hydrALAZINE 50 MG Tablet PO (06:21)
[2021-05-21] MEDS: Lisinopril 2.5 MG Tablet PO (06:21)
[2021-05-21] MEDS: Carvedilol 3.125 MG TABLET PO ×2 (06:21→16:45)
[2021-05-21] MEDS: Pantoprazole Sodium 40 MG Tablet PO ×2 (06:21→16:45)
[2021-05-21] MEDS: Senna/Docusate Sodium 1 Tablet PO (06:21)
[2021-05-21] MEDS: Vitamin B Comp W-C Capsule 1 CAP PO (08:17)
[2021-05-21] MEDS: Thiamine Hydrochloride 100 MG Tablet PO (08:18)
[2021-05-21] MEDS: Folic Acid 1 MG Tablet PO (08:18)
[2021-05-21] MEDS: Aspirin 81 MG TAB.CHEW PO (08:18)
--- NOTE | 2021-05-21 11:05 | CASEMGMT ---
Social Work IDT met with patient, and dtr for care plan meeting. Discussed patient's progress in therapy and nursing. Pt progressing well. Explained [facility] insurance with NRD 05/22 and continued stay is not guaranteed. The goal is for pt to return home with . Discussed DC plans in anticipation of outcome of insurance update. Pt/family agreeable to set DC for 05/24. Pt prefers outpatient therapy at [facility]. Referral made for PT/OT. Pt requesting FWW. Referral made to [facility] [place], [place]. Dtr to transport pt. Plan: DC home with and dtr support 05/24, [facility] PT/OT, FWW Adriane Garcia, CERTIFIED FAMILY MEDIATOR EVENT CREW TECHNICIAN
[2021-05-21 12:43] VITALS: BP 102/46; PULSE 60
[2021-05-21 16:00] VITALS: BP 132/63; PULSE 67; RESP 18; TEMP 36.7; O2SAT 99
[2021-05-21] MEDS: Furosemide 40 MG Tablet PO (17:59)
--- NOTE | 2021-05-21 18:00 | NURSING ---
INCREASED EDEMA TO BLE'S, +3 PITTING LE'S AND +2 PEDAL. DENIES SOB. LUNGS CLEAR. LEGS ELEVATED WITH PATSY WRAPS IN PLACE T/O DAY. NOTIFIED DR. LAU. LASIX X7 DAYS.
--- NOTE | 2021-05-21 19:37 | PCM.DC.SUM ---
Providers Date of Admission: 05/16/21 Primary Care Physician: [facility] Reason For Visit: AFIB/INCREASE TROPORIN Diagnosis Discharge Diagnosis (1) Debility: Status: Acute Code(s): R53.81 - Other malaise (2) Weakness: Status: Acute Code(s): R53.1 - Weakness (3) Hyponatremia: Status: Acute Code(s): E87.1 - Hypo-osmolality and hyponatremia (4) Hypokalemia: Status: Acute Code(s): E87.6 - Hypokalemia (5) Atrial fibrillation: Status: Acute Code(s): I48.91 - Unspecified atrial fibrillation (6) NSTEMI (non-ST elevated myocardial infarction): Status: Acute Code(s): I21.4 - Non-ST elevation (NSTEMI) myocardial infarction (7) Alcohol abuse: Status: Acute Code(s): F10.10 - Alcohol abuse, uncomplicated (8) Aspiration pneumonia: Status: Acute Code(s): J69.0 - Pneumonitis due to inhalation of food and vomit (9) Alcoholic hepatitis: Status: Acute Code(s): K70.10 - Alcoholic hepatitis without ascites (10) Asthma: Status: Acute Code(s): J45.909 - Unspecified asthma, uncomplicated (11) Hemorrhoids: Status: Acute Code(s): K64.9 - Unspecified hemorrhoids (12) Hypertension: Status: Chronic Code(s): I10 - Essential (primary) hypertension Medications at Discharge Home Medications amlodipine 5 mg tablet 5 mg PO DAILY 90 Days #90 tab 08/29/18 hydralazine 50 mg tablet 50 mg PO TID 90 Days #540 tab 08/29/18 triamcinolone acetonide 0.1 % topical cream 1 applic TOPICAL DAILY 05/08/21 aspirin 81 mg PO DAILY 05/15/21 vitamin B complex 1 tab PO DAILY 05/15/21 carvedilol 3.125 mg PO BID 30 Days #60 tab 05/21/21 folic acid 1 mg PO BREAKFAST 30 Days #30 tab 05/21/21 furosemide 40 mg PO DAILY 3 Days #3 tab 05/21/21 lisinopril 2.5 mg PO DAILY 30 Days #30 tab 05/21/21 pantoprazole 40 mg PO BID 30 Days #60 tab 05/21/21 thiamine HCl (vitamin B1) [Vitamin B-1] 100 mg PO BREAKFAST 30 Days #30 tab 05/21/21 Hospital Course Operations None Procedures None Summary of Care Provided Minutes Spent on Discharge: 35 Hospital Course: 80 year old male with below past medical history hospitalized for weakness secondary to hyponatremia, hypokalemia, NSTEMI, aspiration pneumonia, alcoholic hepatitis, admitted to TCU with debility, here for rehabilitation, strengthening, prior to discharge home with . Discharge home with 05/24/2021, [facility] PT/OT, Front Wheeled Walker. Physical Exam Const alert and oriented x3 General Appearance: cooperative HEENT normocephalic Eyes PERRL and EOMs intact bilaterally Neck supple, no JVD and no carotid bruits Resp normal respiratory effort, normal air movement and clear to auscultation bilaterally Cardio regular rate and regular rhythm GI normal to inspection, nondistended, normoactive bowel sounds, non-tender and non-distended Extremity normal capillary refill General Extremity: Negative for edema Skin no rashes or lesions noted General Skin Exam: no breakdown Psych affect normal Appearance: appropriate Weight / BMI Weight Weight: 93.1 kg Body Mass Index (BMI) 28.2 ABG / Lab / Microbiology Data Result Diagrams: 05/17/21 06:36 05/17/21 06:36 D/C Instructions Discharge Diet: No restrictions Discharge Activity: Return to Normal Activity, May Shower and Use Walker May resume sexual activity in: No Restrictions Weight Bearing Status: Weight bearing as tolerated Call your doctor if you observe: Fever of 101 or Higher, Inability to urinate, Inability to have a bowel movement, Shortness of breath, Dizziness, Fainting spells, Chest pain and Uncontrolled pain Additional Instructions: Discharge home with 05/24/2021, [facility] PT/OT, Front Wheeled Walker. Please Follow Up With: Walter Munguia MD When: 1 week. Meaningful Use Info Meaningful Use Diagnoses (Choose all that apply): None applicable Discharge Plan Admission Admit Date/Time: 05/16/21 16:14 Primary Reason for Your Visit: Debility. Attending Provider: Kumar Serrato Chi Primary Care Provider: [facility],[place] Instructions Additional Instructions / Restrictions: Discharge home with 05/24/2021, [facility] PT/OT, Front Wheeled Walker. Discharge Orders/Prescriptions Prescriptions: New furosemide 40 mg Tablet 40 mg PO DAILY 3 Days Qty: 3 RF: 0 Continued amlodipine 5 mg tablet 5 mg PO DAILY 90 Days Qty: 90 RF: 0 hydralazine 50 mg tablet 50 mg PO TID 90 Days Qty: 540 RF: 0 triamcinolone acetonide 0.1 % cream 1 applic topical DAILY RF: 0 vitamin B complex Tablet 1 tab PO DAILY RF: 0 aspirin 81 mg Tablet 81 mg PO DAILY RF: 0 thiamine HCl (vitamin B1) [Vitamin B-1] 100 mg tablet 100 mg PO BREAKFAST 30 Days Qty: 30 RF: 0 carvedilol 3.125 mg tablet 3.125 mg PO BID 30 Days Qty: 60 RF: 0 pantoprazole 40 mg tablet,delayed release (DR/EC) 40 mg PO BID 30 Days Qty: 60 RF: 0 folic acid 1 mg tablet 1 mg PO BREAKFAST 30 Days Qty: 30 RF: 0 lisinopril 2.5 mg tablet 2.5 mg PO DAILY 30 Days Qty: 30 RF: 0 [facility] - Disposition Disposition (needs filled in before D/C Order can be placed): Home, Self Care
[2021-05-21 20:33] VITALS: PULSE 59
[2021-05-22 07:07] VITALS: BP 115/64; PULSE 61
[2021-05-22] MEDS: Carvedilol 3.125 MG TABLET PO ×2 (07:08→17:19)
[2021-05-22] MEDS: Lisinopril 2.5 MG Tablet PO (07:08)
[2021-05-22 07:09] VITALS: PULSE 61
[2021-05-22] MEDS: amLODIPine 5 MG Tablet PO (07:09)
[2021-05-22] MEDS: hydrALAZINE 50 MG Tablet PO ×2 (07:09→21:25)
[2021-05-22] MEDS: Pantoprazole Sodium 40 MG Tablet PO ×2 (07:09→17:19)
[2021-05-22] MEDS: Furosemide 40 MG Tablet PO (07:09)
[2021-05-22] MEDS: Menthol/Lanolin/Calamine/Znox 113 GM Tube 1 APPLIC TOPICAL ×2 (07:09→21:31)
[2021-05-22] MEDS: Folic Acid 1 MG Tablet PO (08:26)
[2021-05-22] MEDS: Vitamin B Comp W-C Capsule 1 CAP PO (08:26)
[2021-05-22] MEDS: Thiamine Hydrochloride 100 MG Tablet PO (08:26)
[2021-05-22] MEDS: Aspirin 81 MG TAB.CHEW PO (08:26)
[2021-05-22 13:35] VITALS: BP 101/52; PULSE 58
[2021-05-22 16:49] VITALS: PULSE 58; RESP 18; O2SAT 97
[2021-05-22 16:59] VITALS: BP 101/52; PULSE 58; RESP 18; TEMP 36.7; O2SAT 97
[2021-05-22] MEDS: Senna/Docusate Sodium 1 Tablet PO (17:19)
[2021-05-22 21:25] VITALS: BP 125/53; PULSE 66
--- NOTE | 2021-05-22 21:32 | NURSING ---
Patient did not receive Covid-19 booster today. He states he and his will get it in June.
[2021-05-23] MEDS: amLODIPine 5 MG Tablet PO (06:31)
[2021-05-23] MEDS: Furosemide 40 MG Tablet PO (06:31)
[2021-05-23] MEDS: Carvedilol 3.125 MG TABLET PO ×2 (06:31→18:03)
[2021-05-23] MEDS: Lisinopril 2.5 MG Tablet PO (06:31)
[2021-05-23] MEDS: Pantoprazole Sodium 40 MG Tablet PO ×2 (06:31→18:03)
[2021-05-23 06:32] VITALS: BP 124/57; PULSE 65
[2021-05-23] MEDS: hydrALAZINE 50 MG Tablet PO ×2 (06:32→20:39)
[2021-05-23] MEDS: Vitamin B Comp W-C Capsule 1 CAP PO (08:36)
[2021-05-23] MEDS: Aspirin 81 MG TAB.CHEW PO (08:36)
[2021-05-23] MEDS: Folic Acid 1 MG Tablet PO (08:37)
[2021-05-23] MEDS: Thiamine Hydrochloride 100 MG Tablet PO (08:37)
[2021-05-23] MEDS: Menthol/Lanolin/Calamine/Znox 113 GM Tube 1 APPLIC TOPICAL ×2 (08:37→20:37)
[2021-05-23 09:09] LABS: Anion Gap 8 (5-15); BUN 18 mg/dL (7-18); BUN/Creat Ratio 17.8 RATIO (10-20); Calcium,Total 8.8 mg/dL (8.5-10.1); Chloride 97 mmol/L (98-107); Creatinine, Serum 1.01 mg/dL (0.70-1.30); EST Glomerular Filtration Rate 76 mL/min (>60); Est Glom Filt Rate - Afr Amer 92 mL/min (>60); Estimated Creatinine Clearance 59.31 ml/min; Glucose 115 mg/dL (74-106); Potassium 3.9 mmol/L (3.5-5.1); Sodium Level 130 mmol/L (136-145)
--- NOTE | 2021-05-23 13:37 | CASEMGMT ---
Social Work SW met with pt and to discuss discharge plan. [employer]MO issued NOMNC with last covered day 05/25 and d/c on 05/26. Pt and would prefer discharge on Friday 05/25 at 1100. states their son will be arriving on Wednesday and staying the week with them to assist with the transition home. Pt has appointments at [facility] for PT and OT. Nursing to complete teaching for wound care on arm. No further discharge needs. Discharge Date 05/25/21 Discharge Plan: home with and son to assist Oupt pt PT/OT MONY Sylvester
[2021-05-23 15:05] VITALS: BP 118/61; PULSE 65; RESP 18; TEMP 36.6; O2SAT 98
--- NOTE | 2021-05-23 15:20 | NURSING ---
Called Dr. Ley office to set up follow up appt.. Per Dr. Ley's full stack developer he would be a new patient and would need to fill out new patient paperwork prior to scheduling appt.. Paper was faxed and this nurse gave paperwork to to fill out.
[2021-05-23 15:25] VITALS: PULSE 61
[2021-05-23 20:39] VITALS: BP 120/64; PULSE 62
[2021-05-24] MEDS: Senna/Docusate Sodium 1 Tablet PO (05:09)
[2021-05-24] MEDS: Pantoprazole Sodium 40 MG Tablet PO ×2 (05:09→18:08)
[2021-05-24] MEDS: amLODIPine 5 MG Tablet PO (05:09)
[2021-05-24] MEDS: Lisinopril 2.5 MG Tablet PO (05:09)
[2021-05-24] MEDS: Furosemide 40 MG Tablet PO (05:09)
[2021-05-24] MEDS: Carvedilol 3.125 MG TABLET PO ×2 (05:09→18:08)
[2021-05-24] MEDS: Polyethylene Glycol 3350 17 GM PACKET PO (05:10)
[2021-05-24] MEDS: Menthol/Lanolin/Calamine/Znox 113 GM Tube 1 APPLIC TOPICAL (05:10)
[2021-05-24 05:11] VITALS: BP 127/63; PULSE 62
[2021-05-24] MEDS: hydrALAZINE 50 MG Tablet PO (05:11)
[2021-05-24 07:11] LABS: Absolute Lymphocyte Count 0.29 X10^3/uL (0.83-4.51); Absolute Neutrophil Count 2.6 X10^3/uL (2.0-7.7); Basophil# 0.02 X10^3/uL; Basophil% 0.6 % (0-1); Eosinophil# 0.02 X10^3/uL; Eosinophils% 0.6 % (0-5); Hematocrit 29.1 % (40-54); Hemoglobin 9.8 g/dL (13.0-16.5); Lymphocyte # 0.29 X10^3/ul (0.83-4.51); Lymphocyte % 8.8 % (19-41); Mean Corp Hgb Conc 33.7 g/dL (32-36); Mean Corpuscular Hgb 30.5 pg (27.0-32.0); Mean Corpuscular Volume 90.7 fL (80-94); Mean Platelet Vol. 9.4 fl (6.2-12.0); Monocyte# 0.39 X10^3/uL; Monocyte% 11.8 % (0-10); NRBC Flagged by Analyzer 0 % (0-5); Neutrophil # 2.57 X10^3/uL (2.7-7.7); Neutrophil % 77.9 % (47-70); POSITIVE DIFFERENTIAL YES; Platelet Count 148 K/mm3 (150-450); RBC Distribution Width CV 13.2 % (11.6-14.6); RBC Distribution Width SD 44.1 fl (35.1-43.9); Red Blood Count 3.21 M/mm3 (4.6-6.2); White Blood Count 3.3 K/mm3 (4.4-11.0)
[2021-05-24 07:15] LABS: Differential Indicated SCAN CRITERIA MET
[2021-05-24 07:30] LABS: Anion Gap 7 (5-15); BUN 16 mg/dL (7-18); BUN/Creat Ratio 16.7 RATIO (10-20); Calcium,Total 8.7 mg/dL (8.5-10.1); Chloride 97 mmol/L (98-107); Creatinine, Serum 0.96 mg/dL (0.70-1.30); EST Glomerular Filtration Rate 80 mL/min (>60); Est Glom Filt Rate - Afr Amer 97 mL/min (>60); Estimated Creatinine Clearance 62.39 ml/min; Glucose 92 mg/dL (74-106); Potassium 3.9 mmol/L (3.5-5.1); Sodium Level 131 mmol/L (136-145)
[2021-05-24] MEDS: Thiamine Hydrochloride 100 MG Tablet PO (08:00)
[2021-05-24] MEDS: Vitamin B Comp W-C Capsule 1 CAP PO (08:00)
[2021-05-24] MEDS: Aspirin 81 MG TAB.CHEW PO (08:00)
[2021-05-24] MEDS: Folic Acid 1 MG Tablet PO (08:00)
[2021-05-24 09:00] LABS: Differential Comment SCANNED
--- NOTE | 2021-05-24 10:42 | NURSING ---
pt BPs running low at times, staff been holding apresoline at times. dr elder updated, new order to decrease apresoline to 25mg BID
[2021-05-24 16:00] VITALS: BP 118/58; PULSE 62; RESP 16; TEMP 36.7; O2SAT 97
[2021-05-24 18:08] VITALS: BP 118/58; PULSE 62
[2021-05-24] MEDS: hydrALAZINE 25 MG Tablet PO (18:08)
--- NOTE | 2021-05-24 19:30 | NURSING ---
Pt. declined dressing change to SHERIE, states It's scabbed up, it doesn't need anything on it. Francisco wrap pbserved in place to SHERIE, pt. declines removal of FRANCISCO wrap for assessment, states I have it how I like it, I don't want to take it off.
[2021-05-24 20:05] VITALS: PULSE 58; RESP 16; O2SAT 99
[2021-05-25] MEDS: Pantoprazole Sodium 40 MG Tablet PO (05:14)
[2021-05-25 05:15] VITALS: BP 125/53; PULSE 62
[2021-05-25] MEDS: amLODIPine 5 MG Tablet PO (05:15)
[2021-05-25] MEDS: Carvedilol 3.125 MG TABLET PO (05:15)
[2021-05-25] MEDS: hydrALAZINE 25 MG Tablet PO (05:15)
[2021-05-25] MEDS: Furosemide 40 MG Tablet PO (05:15)
[2021-05-25] MEDS: Lisinopril 2.5 MG Tablet PO (05:15)
[2021-05-25] MEDS: Aspirin 81 MG TAB.CHEW PO (07:57)
[2021-05-25] MEDS: Folic Acid 1 MG Tablet PO (07:57)
[2021-05-25] MEDS: Thiamine Hydrochloride 100 MG Tablet PO (07:57)
[2021-05-25] MEDS: Vitamin B Comp W-C Capsule 1 CAP PO (07:57)
[2021-05-25 09:29] VITALS: PULSE 75; RESP 18; O2SAT 99
[2021-05-25 09:38] VITALS: BP 105/56; PULSE 68; RESP 16; TEMP 36.6; O2SAT 99
[2021-05-26 13:33] LABS: Pathologist Review Reviewed
--- NOTE | 2021-05-28 10:52 | MDS.RN ---
Information for the mds was obtained from review of the clinical record, interview of resident, staff, and direct observation of resident's care.
== END 2021-05-25 10:49 | disposition home or self-care (01) | DRG 281 ==
PROVIDERS: Admitting Provider Family Medicine Geriatric Medicine; Visit Provider Family Medicine Geriatric Medicine
DX: I21.A1 Myocardial infarction type 2 (principal); E87.1 Hypo-osmolality and hyponatremia; I48.91 Unspecified atrial fibrillation; K70.10 Alcoholic hepatitis without ascites; I25.10 Atherosclerotic heart disease of native coronary artery without angina pectoris; I10 Essential (primary) hypertension; K29.70 Gastritis, unspecified, without bleeding; J45.909 Unspecified asthma, uncomplicated; Z79.899 Other long term (current) drug therapy; Z79.82 Long term (current) use of aspirin; Z87.891 Personal history of nicotine dependence; E87.6 Hypokalemia; F10.20 Alcohol dependence, uncomplicated
CPT/HCPCS: 36415; 80048; 85025; 97110; 97116; 97162; 97166; 97530; 97535; 97802

== ENCOUNTER → 2021-06-06 11:40 | Outpatient (CLI) | payer MEDICARE, SELFPAY ==
[2021-06-06 12:14] LABS: Absolute Lymphocyte Count 0.53 X10^3/uL (0.83-4.51); Absolute Neutrophil Count 2.1 X10^3/uL (2.0-7.7); Basophil# 0.03 X10^3/uL; Eosinophils% 3.3 % (0-5); Hematocrit 30.9 % (40-54); Hemoglobin 10.4 g/dL (13.0-16.5); Lymphocyte # 0.53 X10^3/ul (0.83-4.51); Lymphocyte % 17.5 % (19-41); Mean Corp Hgb Conc 33.7 g/dL (32-36); Mean Corpuscular Hgb 29.8 pg (27.0-32.0); Mean Corpuscular Volume 88.5 fL (80-94); Mean Platelet Vol. 9.4 fl (6.2-12.0); Monocyte# 0.28 X10^3/uL; Monocyte% 9.3 % (0-10); NRBC Flagged by Analyzer 0 % (0-5); Neutrophil # 2.07 X10^3/uL (2.7-7.7); Neutrophil % 68.6 % (47-70); POSITIVE DIFFERENTIAL YES; Platelet Count 170 K/mm3 (150-450); RBC Distribution Width CV 13.5 % (11.6-14.6); RBC Distribution Width SD 43.9 fl (35.1-43.9); Red Blood Count 3.49 M/mm3 (4.6-6.2)
[2021-06-06 12:21] LABS: Differential Indicated SCAN CRITERIA MET
[2021-06-06 12:30] LABS: International Normalized Ratio 1.2; Prothrombin Time (Protime)PT. 14.5 SECONDS (11.7-14.9)
[2021-06-06 12:56] LABS: ALB/GLOB Ratio 0.9 RATIO (0.9-2.4); AST(SGOT) 25 U/L (15-37); Alanine Aminotransfer ALT/SGPT 28 U/L (16-61); Albumin, Serum 3.5 g/dL (3.2-5.0); Alkaline Phosphatase 114 U/L (45-117); Anion Gap 7 (5-15); BUN 11 mg/dL (7-18); BUN/Creat Ratio 13.3 RATIO (10-20); Calcium,Total 9.4 mg/dL (8.5-10.1); Chloride 97 mmol/L (98-107); Creatinine, Serum 0.83 mg/dL (0.70-1.30); EST Glomerular Filtration Rate 95 mL/min (>60); Est Glom Filt Rate - Afr Amer 115 mL/min (>60); Globulin 4.1 g/dL (2.2-4.2); Glucose 93 mg/dL (74-106); Potassium 3.5 mmol/L (3.5-5.1); Protein, Total 7.6 g/dL (6.4-8.2); Sodium Level 131 mmol/L (136-145)
[2021-06-07 08:38] LABS: AFP, Tumor Marker 1.1 ng/mL (0.0-8.3)
[2021-06-10 13:12] LABS: Pathologist Review Reviewed
== END ==
PROVIDERS: Referring Provider Internal Medicine Gastroenterology; Visit Provider Internal Medicine Gastroenterology
DX: J20.9 Acute bronchitis, unspecified (principal); K74.60 Unspecified cirrhosis of liver
CPT/HCPCS: 36415; 80053; 82105; 85025; 85610

== ENCOUNTER 2021-06-11 15:00 | Outpatient (RCR) | payer MEDICARE, SELFPAY ==
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
--- NOTE | 2021-06-11 15:42 | HP.OTDCSUM_ITS ---
It has been my pleasure to treat BREEZY GLASS under orders from Dr. Kumar Serrato MD, for the diagnosis of Debility for a total of 4 visit(s). Please see the following information for a summary of their discharge status. % Improvement: 90 Objective/Function: pt demo bilateral stoneworking belt sander strength at 50# Patient Goals: Regain Strength, Be More Independent in ADLS Goal:: pt will demo a increase in BUE MMT to 4+/5 to increase pts functional strength for ADLs and IADLS. pt will demo a increase in bilateral stoneworking belt sander strength by 15# or greater by dc to increase pts ind. with ADls and IADLs. Goal:: pt will demo good dyn standing balance with simulated IADls, reach in cabinet, standing at counter top for greater than 6 min with no expressed or apparent fatigue or SOB. Plan: pt wants to be D/C at this time- Discharge Comments: pt request D/c from OT - as he feels he is set with his HEP- pt demo a increase in strength but therapist encouraged pt to continue with his exercise or joint health and wellness- pt demo understanding. If there are questions or concerns regarding this patient's occupational therapy, please fell free to call me at [phone]. Thank you for the referral of this patient. Sincerely, Mago Martinez, TREVR/L, CHT
--- NOTE | 2021-08-12 09:25 | HP.OTDCSUM_ITS ---
It has been my pleasure to treat BREEZY GLASS Jr. under orders from Dr. Kumar Serrato MD, for the diagnosis of Debility for a total of 4 visit(s). Please see the following information for a summary of their discharge status. % Improvement: 90 Objective/Function: pt demo bilateral platform builder strength at 50# Patient Goals: Regain Strength, Be More Independent in ADLS Goal:: pt will demo a increase in BUE MMT to 4+/5 to increase pts functional strength for ADLs and IADLS. pt will demo a increase in bilateral platform builder strength by 15# or greater by dc to increase pts ind. with ADls and IADLs. Goal:: pt will demo good dyn standing balance with simulated IADls, reach in cabinet, standing at counter top for greater than 6 min with no expressed or apparent fatigue or SOB. Plan: pt wants to be D/C at this time- Discharge Comments: pt request D/c from OT - as he feels he is set with his HEP- pt demo a increase in strength but therapist encouraged pt to continue with his exercise or joint health and wellness- pt demo understanding. If there are questions or concerns regarding this patient's occupational therapy, please fell free to call me at [phone]. Thank you for the referral of this patient. Sincerely, Mago Martinez OTR/L, CHT
== END 2021-06-11 19:00 | disposition home or self-care (01) ==
LOC: OT 15:00
PROVIDERS: Referring Provider Family Medicine Geriatric Medicine; Visit Provider Family Medicine Geriatric Medicine
DX: R53.81 Other malaise (principal); I25.2 Old myocardial infarction
CPT/HCPCS: 97110; 97162; 97166; 97530

== ENCOUNTER → 2021-06-24 06:06 | Outpatient (CLI) | payer MEDICARE, SELFPAY ==
--- NOTE | 2021-06-24 17:49 | STRESSREP ---
Stress Test Report Pharmacologic myocardial perfusion stress test. Chest pain non-ST elevation myocardial infarction. Medications amlodipine furosemide lisinopril aspirin carvedilol. Stress protocol: Resting EKG demonstrates atrial fibrillation with a rate of 48 bpm. T wave inversions noted in V1 and V2. Resting blood pressure is 140/62 mmHg. 0.4 mg of regadenoson was infused per usual protocol followed by rapid intravenous saline flush injection. The patient was allowed a casual walk on the treadmill on the modified Mehrdad protocol. The maximum heart rate attained was noted to be 121 bpm which was 85% of max impact on heart rate the maximum workload was 2.3 metabolic equivalents. The patient maintained atrial fibrillation throughout the recording with nonspecific EKG changes noted. The test was terminated due to completion of the protocol. Myocardial perfusion protocol. 11.3 mCi of technetium 99m sestamibi was injected at rest. 0.4 mg of regadenoson was infused per usual protocol. At peak infusion 33.3 mCi of technetium 99m sestamibi was injected stress images were obtained stress and rest images were reconstructed and compared in the short axis vertical long and horizontal long axis. Gated images were also obtained. Perfusion SPECT analysis: Review of the stress images demonstrate normal uptake of tracer noted in all areas of the myocardium. The resting images similarly demonstrate normal uptake of tracer noted in all areas of the myocardium. No areas of reversibility are noted to suggest ischemia and no previous infarct is noted. Gated SPECT analysis: The gated ejection fraction is 54%. Conclusion: Normal pharmacologic myocardial perfusion stress test. Atrial fibrillation noted. Preserved ejection fraction.
== END ==
PROVIDERS: Referring Provider Physician Assistant Medical; Visit Provider Physician Assistant Medical
DX: I21.4 Non-ST elevation (NSTEMI) myocardial infarction (principal)
CPT/HCPCS: 78452; 93017; A9500; A4216; J2785

== ENCOUNTER → 2021-06-30 14:39 | Outpatient (CLI) | payer MEDICARE, SELFPAY ==
--- NOTE | 2021-06-30 14:41 | CT_ITS ---
STUDY: CT ABDOMEN WITH AND WITHOUT CONTRAST REASON FOR EXAM: Male, 81 years old. R/O pancreatic mass RADIATION DOSAGE (If Supplied By Facility): CTDIvol = ( 12.76 ) mGy, DLP = ( 888.53 ) mGycm TECHNIQUE: Transaxial images were obtained pre and post I.V. administration of IV 100mL Isovue-370, and with oral contrast. Sagittal and coronal images were reconstructed. Individualized dose optimization techniques were used for this CT. COMPARISON: Comparison is made with prior ultrasound of the abdomen dated 05/14/2021. FINDINGS: The visualized lung bases are unremarkable. The visualized portions of the heart are within normal limits. There is decreased attenuation of the liver consistent with steatosis. Tiny amount of fluid in the perihepatic space extending into the right paracolic gutter. The gallbladder is contracted. There is mild splenomegaly. There is evidence of the varices in the region of the splenic hilum. Questionable 2.7 cm x 2.3 cm soft tissue mass in the head of the pancreas adjacent to the second portion of the duodenum. Correlation with ERCP is recommended. Normal bilateral adrenal glands. Normal right kidney. Normal left kidney. Normal visualized stomach. Normal small intestine. Normal colon. The appendix is visualized and appears normal. There is diffuse atherosclerotic calcification of the abdominal aorta, without a demonstrated aneurysm. Normal inferior vena cava. There is borderline retroperitoneal lymphadenopathy with enlarged nodes no greater than 10mm in the short axis diameter. Normal abdominal wall. There are diffuse degenerative changes of the visualized lumbar spine. CT/Abdomen W/WO IV Contrast IMPRESSION: Fatty infiltration of the liver. 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 Questionable 2.7 cm x 2.3 cm mass in the head of the pancreas adjacent to the duodenum. Correlation with endoscopy is recommended. Tiny amount of perihepatic fluid. Electronically Signed: Juvenal Salcedo MD at 12:51 EST , Service support ,
== END ==
PROVIDERS: Referring Provider Internal Medicine Gastroenterology; Visit Provider Internal Medicine Gastroenterology
DX: Q45.3 Other congenital malformations of pancreas and pancreatic duct (principal)
CPT/HCPCS: 74170; Q9967

== ENCOUNTER → 2021-07-04 10:55 | Outpatient (CLI) | payer MEDICARE, SELFPAY ==
[2021-07-08 14:31] LABS: Carbohydrate Ag 19-9 2261 9 U/mL (0-35)
== END ==
PROVIDERS: PCP Family Medicine; Visit Provider Internal Medicine Gastroenterology
DX: K74.60 Unspecified cirrhosis of liver (principal)
CPT/HCPCS: 36415; 82105; 86301

== ENCOUNTER → 2021-12-31 | Outpatient (CLI) | payer MEDICARE, SELFPAY ==
[2021-12-31 12:18] LABS: Absolute Lymphocyte Count 0.38 X10^3/uL (0.83-4.51); Absolute Neutrophil Count 2.3 X10^3/uL (2.0-7.7); Basophil# 0.04 X10^3/uL; Basophil% 1.2 % (0-1); Eosinophil# 0.09 X10^3/uL; Eosinophils% 2.8 % (0-5); Hematocrit 30.4 % (40-54); Hemoglobin 10.7 g/dL (13.0-16.5); Lymphocyte # 0.38 X10^3/ul (0.83-4.51); Lymphocyte % 11.7 % (19-41); Mean Corp Hgb Conc 35.2 g/dL (32-36); Mean Corpuscular Hgb 31.8 pg (27.0-32.0); Mean Corpuscular Volume 90.2 fL (80-94); Monocyte# 0.39 X10^3/uL; NRBC Flagged by Analyzer 0 % (0-5); Neutrophil # 2.34 X10^3/uL (2.7-7.7); Neutrophil % 71.7 % (47-70); POSITIVE DIFFERENTIAL YES; Platelet Count 159 K/mm3 (150-450); RBC Distribution Width CV 13.1 % (11.6-14.6); RBC Distribution Width SD 43.2 fl (35.1-43.9); Red Blood Count 3.37 M/mm3 (4.6-6.2); White Blood Count 3.3 K/mm3 (4.4-11.0)
[2021-12-31 12:25] LABS: Differential Indicated SCAN CRITERIA MET
[2021-12-31 13:05] LABS: AST(SGOT) 31 U/L (15-37); Alanine Aminotransfer ALT/SGPT 29 U/L (16-61); Albumin, Serum 4.3 g/dL (3.2-5.0); Alkaline Phosphatase 108 U/L (45-117); Anion Gap 11 (5-15); BUN 21 mg/dL (7-18); BUN/Creat Ratio 20.4 RATIO (10-20); Calcium,Total 9.5 mg/dL (8.5-10.1); Chloride 89 mmol/L (98-107); Creatinine, Serum 1.03 mg/dL (0.70-1.30); EST Glomerular Filtration Rate 74 mL/min (>60); Est Glom Filt Rate - Afr Amer 89 mL/min (>60); Globulin 4.1 g/dL (2.2-4.2); Glucose 89 mg/dL (74-106); Potassium 4.8 mmol/L (3.5-5.1); Protein, Total 8.4 g/dL (6.4-8.2); Sodium Level 124 mmol/L (136-145); Thyroid Stim Hormone (TSH) 2.12 uIU/mL (0.358-3.74)
[2022-01-02 09:12] LABS: Pathologist Review Reviewed
== END | disposition home or self-care (01) ==
PROVIDERS: PCP Family Medicine; Referring Provider Family Medicine; Visit Provider Family Medicine
DX: I48.91 Unspecified atrial fibrillation (principal); I10 Essential (primary) hypertension
CPT/HCPCS: 36415; 80053; 84443; 85025

== ENCOUNTER → 2022-01-19 | Outpatient (CLI) | payer MEDICARE, SELFPAY ==
[2022-01-19 12:53] LABS: Anion Gap 3 (5-15); BUN 17 mg/dL (7-18); BUN/Creat Ratio 16.3 RATIO (10-20); Calcium,Total 9.8 mg/dL (8.5-10.1); Chloride 100 mmol/L (98-107); Creatinine, Serum 1.04 mg/dL (0.70-1.30); EST Glomerular Filtration Rate 73 mL/min (>60); Est Glom Filt Rate - Afr Amer 88 mL/min (>60); Glucose 96 mg/dL (74-106); Potassium 4.3 mmol/L (3.5-5.1); Sodium Level 130 mmol/L (136-145)
== END | disposition home or self-care (01) ==
PROVIDERS: PCP Family Medicine; Referring Provider Family Medicine; Visit Provider Family Medicine
DX: E87.1 Hypo-osmolality and hyponatremia (principal)
CPT/HCPCS: 36415; 80048

== ENCOUNTER → 2023-01-04 | Outpatient (CLI) | payer MEDICARE, SELFPAY ==
[2023-01-04 12:05] LABS: Absolute Lymphocyte Count 0.38 X10^3/uL (0.83-4.51); Absolute Neutrophil Count 2.1 X10^3/uL (2.0-7.7); Basophil# 0.02 X10^3/uL; Basophil% 0.7 % (0-1); Eosinophil# 0.06 X10^3/uL; Hematocrit 29.1 % (40-54); Hemoglobin 8.7 g/dL (13.0-16.5); Lymphocyte # 0.38 X10^3/ul (0.83-4.51); Lymphocyte % 12.8 % (19-41); Mean Corp Hgb Conc 29.9 g/dL (32-36); Mean Corpuscular Volume 73.7 fL (80-94); Mean Platelet Vol. 9.3 fl (6.2-12.0); Monocyte# 0.39 X10^3/uL; Monocyte% 13.1 % (0-10); NRBC Flagged by Analyzer 0 % (0-5); Neutrophil # 2.12 X10^3/uL (2.7-7.7); Neutrophil % 71.1 % (47-70); POSITIVE DIFFERENTIAL YES; Platelet Count 161 K/mm3 (150-450); RBC Distribution Width CV 18.6 % (11.6-14.6); RBC Distribution Width SD 49.8 fl (35.1-43.9); Red Blood Count 3.95 M/mm3 (4.6-6.2)
[2023-01-04 12:09] LABS: Differential Indicated SCAN CRITERIA MET
[2023-01-04 12:18] LABS: ALB/GLOB Ratio 1.1 RATIO (0.9-2.4); AST(SGOT) 23 U/L (15-37); Alanine Aminotransfer ALT/SGPT 21 U/L (16-61); Alkaline Phosphatase 77 U/L (45-117); Anion Gap -6 (5-15); BUN 12 mg/dL (7-18); BUN/Creat Ratio 15.1 RATIO (10-20); Calcium,Total 9.3 mg/dL (8.5-10.1); Chloride 102 mmol/L (98-107); EST Glomerular Filtration Rate 99 mL/min (>60); Est Glom Filt Rate - Afr Amer 120 mL/min (>60); Globulin 3.6 g/dL (2.2-4.2); Glucose 95 mg/dL (74-106); Potassium 4.2 mmol/L (3.5-5.1); Protein, Total 7.6 g/dL (6.4-8.2); Sodium Level 121 mmol/L (136-145)
[2023-01-05 13:48] LABS: Pathologist Review Reviewed
== END | disposition home or self-care (01) ==
LOC: BFHLAB 10:46
PROVIDERS: PCP Nurse Practitioner Family; Referring Provider Nurse Practitioner Family; Visit Provider Nurse Practitioner Family
DX: I10 Essential (primary) hypertension (principal)
CPT/HCPCS: 36415; 80053; 85025

== ENCOUNTER → 2024-01-07 | Outpatient (CLI) | payer MEDICARE, SELFPAY ==
[2024-01-07 16:12] LABS: Absolute Lymphocyte Count 0.38 X10^3/uL (0.83-4.51); Absolute Neutrophil Count 3.2 X10^3/uL (2.0-7.7); Basophil# 0.03 X10^3/uL; Basophil% 0.7 % (0-1); Eosinophils% 2.3 % (0-5); Hematocrit 30.3 % (40-54); Hemoglobin 9.1 g/dL (13.0-16.5); Lymphocyte # 0.38 X10^3/ul (0.83-4.51); Lymphocyte % 8.8 % (19-41); Mean Corpuscular Hgb 23.2 pg (27.0-32.0); Mean Corpuscular Volume 77.1 fL (80-94); Mean Platelet Vol. 10.1 fl (6.2-12.0); Monocyte# 0.57 X10^3/uL; Monocyte% 13.2 % (0-10); NRBC Flagged by Analyzer 0 % (0-5); Neutrophil # 3.21 X10^3/uL (2.7-7.7); Neutrophil % 74.5 % (47-70); POSITIVE DIFFERENTIAL YES; Platelet Count 186 K/mm3 (150-450); RBC Distribution Width CV 17.5 % (11.6-14.6); RBC Distribution Width SD 49.2 fl (35.1-43.9); Red Blood Count 3.93 M/mm3 (4.6-6.2); White Blood Count 4.3 K/mm3 (4.4-11.0)
[2024-01-07 16:14] LABS: Differential Indicated SCAN CRITERIA MET
[2024-01-07 16:32] LABS: AST(SGOT) 21 U/L (15-37); Alanine Aminotransfer ALT/SGPT 18 U/L (16-61); Albumin, Serum 3.9 g/dL (3.2-5.0); Alkaline Phosphatase 70 U/L (45-117); Anion Gap 7 (5-15); BUN 14 mg/dL (7-18); Calcium,Total 9.2 mg/dL (8.5-10.1); Chloride 95 mmol/L (98-107); Cholesterol 145 mg/dL (200); Creatinine, Serum 0.88 mg/dL (0.70-1.30); EST Glomerular Filtration Rate 89 mL/min (>60); Est Glom Filt Rate - Afr Amer 107 mL/min (>60); Glucose 96 mg/dL (74-106); High Density Lipoprotein 80 mg/dL; PSA,Total - Annual Screen 1.72 ng/mL (0.00-4.00); Potassium 4.6 mmol/L (3.5-5.1); Protein, Total 7.9 g/dL (6.4-8.2); Sodium Level 126 mmol/L (136-145); Triglycerides 48 mg/dL; Very Low Density Lipoprotein 10 mg/dL (5-40)
[2024-01-07 16:47] LABS: Anisocytosis RARE; Hypochromasia RARE; Microcytosis RARE; Ovalocyte RARE; Platelet Estimate ADEQUATE (ADEQ); Red Cell Morphology N CHROM NORMAL (NORM C&C)
== END | disposition home or self-care (01) ==
LOC: LABSPEC 15:35
PROVIDERS: PCP Nurse Practitioner Family; Referring Provider Nurse Practitioner Family; Visit Provider Nurse Practitioner Family
DX: I10 Essential (primary) hypertension (principal); E78.5 Hyperlipidemia, unspecified; Z12.5 Encounter for screening for malignant neoplasm of prostate
CPT/HCPCS: 80053; 80061; 84153; 85025; G0103

== ENCOUNTER 2024-08-18 18:47 | Inpatient (IN) | payer MEDICARE, SELFPAY ==
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
[2024-08-18 20:21] VITALS: BP 160/71; PULSE 72; RESP 16; TEMP 36.6; O2SAT 96
[2024-08-18 20:39] VITALS: BMI 23.7
[2024-08-18 21:10] VITALS: BP 160/65; PULSE 72
[2024-08-18] MEDS: Senna/Docusate Sodium 1 Tablet PO (21:10)
[2024-08-18] MEDS: hydrALAZINE 25 MG Tablet PO (21:10)
[2024-08-18] MEDS: Ketoconazole Cream 1 APPLIC TOPICAL (21:13)
[2024-08-18] MEDS: Menthol/Lanolin/Calamine/Znox 113 GM Tube 1 APPLIC TOPICAL (21:14)
[2024-08-18] MEDS: Acetaminophen 500 MG Tablet 1000 MG PO (21:15)
[2024-08-18] MEDS: oxyCODONE 5 MG Tablet 2.5 MG PO (21:15)
[2024-08-19 05:22] LABS: Absolute Lymphocyte Count 0.35 X10^3/uL (0.83-4.51); Absolute Neutrophil Count 1.3 X10^3/uL (2.0-7.7); Basophil# 0.01 X10^3/uL; Basophil% 0.5 % (0-1); Eosinophil# 0.07 X10^3/uL; Eosinophils% 3.7 % (0-5); Hematocrit 27.9 % (40-54); Hemoglobin 8.6 g/dL (13.0-16.5); Lymphocyte # 0.35 X10^3/ul (0.83-4.51); Lymphocyte % 18.5 % (19-41); Mean Corp Hgb Conc 30.8 g/dL (32-36); Mean Corpuscular Hgb 24.9 pg (27.0-32.0); Mean Corpuscular Volume 80.9 fL (80-94); Mean Platelet Vol. 10.6 fl (6.2-12.0); Monocyte# 0.19 X10^3/uL; Monocyte% 10.1 % (0-10); NRBC Flagged by Analyzer 0 % (0-5); Neutrophil # 1.26 X10^3/uL (2.7-7.7); Neutrophil % 66.7 % (47-70); POSITIVE DIFFERENTIAL YES; Platelet Count 147 K/mm3 (150-450); RBC Distribution Width CV 18.8 % (11.6-14.6); RBC Distribution Width SD 55.9 fl (35.1-43.9); Red Blood Count 3.45 M/mm3 (4.6-6.2); White Blood Count 1.9 K/mm3 (4.4-11.0)
[2024-08-19 05:40] VITALS: BP 163/70; PULSE 65
[2024-08-19] MEDS: hydrALAZINE 25 MG Tablet PO ×3 (05:40→19:57)
[2024-08-19 05:41] LABS: Differential Indicated SCAN CRITERIA MET
[2024-08-19 05:47] LABS: Anion Gap 8 (5-15); BUN 11 mg/dL (7-18); BUN/Creat Ratio 22.7 RATIO (10-20); Calcium,Total 8.7 mg/dL (8.5-10.1); Chloride 100 mmol/L (98-107); Creatinine, Serum 0.48 mg/dL (0.70-1.30); EST Glomerular Filtration Rate 176 mL/min (>60); Est Glom Filt Rate - Afr Amer 212 mL/min (>60); Estimated Creatinine Clearance 75.82 ml/min; Glucose 95 mg/dL (74-106); Potassium 3.2 mmol/L (3.5-5.1); Sodium Level 130 mmol/L (136-145)
[2024-08-19] MEDS: Enoxaparin 40 MG/0.4 ML Syringe SC (05:48)
[2024-08-19 08:24] LABS: Iron 27 ug/dL (65-175); Iron Binding Capacity,Total 319 ug/dL (250-450); PERCENT IRON SATURATION 8.5 % (15.0-55.0)
[2024-08-19] MEDS: Potassium Chloride Oral Tablet 20 MEQ 40 MEQ PO (09:00)
[2024-08-19] MEDS: Aspirin E.C. 81 MG Tablet PO (09:01)
[2024-08-19] MEDS: Vitamin B Comp W-C Capsule 1 CAP PO (09:01)
[2024-08-19] MEDS: Thiamine Hydrochloride 100 MG Tablet PO (09:01)
[2024-08-19] MEDS: Folic Acid 1 MG Tablet PO (09:01)
[2024-08-19] MEDS: Menthol/Lanolin/Calamine/Znox 113 GM Tube 1 APPLIC TOPICAL ×2 (09:02→19:56)
[2024-08-19] MEDS: Ketoconazole Cream 1 APPLIC TOPICAL ×2 (09:02→19:55)
[2024-08-19] MEDS: amLODIPine 5 MG Tablet PO (09:03)
[2024-08-19] MEDS: Senna/Docusate Sodium 1 Tablet PO (09:03)
[2024-08-19] MEDS: Cholecalciferol (VIT D3) 25 MCG TABLET (1,000 UNITS) PO (09:03)
[2024-08-19] MEDS: Pantoprazole Sodium 40 MG Tablet PO (09:03)
[2024-08-19] MEDS: Magnesium Citrate 300 ML PO (09:09)
[2024-08-19 10:21] VITALS: BP 163/58; PULSE 77; RESP 16; TEMP 36.5; O2SAT 99
[2024-08-19] MEDS: Tuberculin,Purif.prot.deriv. 50 TU/ML Vial 0.1 ML ID (11:25)
[2024-08-19] MEDS: BACITRACIN 15 GM Tube 1 APPLIC TOPICAL (11:25)
--- NOTE | 2024-08-19 13:09 | PHA.CONS_ITS ---
TCU RX Drug Regimen Review Subjective/Objective Subjective/Objective Subjective: TCU Admission. 84 YOM presented to outside hospital with fall/ rib fracture secondary to syncope. Hospitalized for fall, multiple left rib fractures, right pleural effusion, complicated by sepsis, encephalopathy, rhabd omyolysis, hyponatremia, small bowel ileus, alcohol abuse. Admitted to TCU with debility for strengthening and rehabilitation. Objective: Allergies tizanidine (From Zanaflex) Adverse Reaction (Unknown, Verified 08/18/24 23:18) hard to wake up Current Medications Generic Name Dose Route Start Last Admin Trade Name Freq PRN Reason Stop Dose Admin Acetaminophen 1,000 mg 08/18/24 20:55 08/18/24 21:15 Acetaminophen 500 Mg Tablet PO 1,000 mg Q6H PRN PRN Administration Pain Score 1-5 Amlodipine Besylate 5 mg 08/19/24 10:00 08/19/24 09:03 Amlodipine 5 Mg Tablet PO 5 mg DAILY EVELYN Administration Protocol Aspirin 81 mg 08/19/24 10:00 08/19/24 09:01 Aspirin E.C. 81 Mg Tablet PO 81 mg DAILY EVELYN Administration Bacitracin 1 applic 08/19/24 10:00 08/19/24 11:25 Bacitracin 15 Gm Tube TOPICAL 1 applic DAILY EVELYN Administration Protocol Calamine/Phenol 1 applic 08/18/24 22:00 08/19/24 09:02 Menthol/Lanolin/Calamine/Znox 113 Gm Tube TOPICAL 1 applic BID EVELYN Administration Protocol Calcium Carbonate 500 mg 08/18/24 20:56 Calcium Carbonate 500 Mg Tablet PO BID PRN INDIGESTION Cholecalciferol 25 mcg 08/19/24 10:00 08/19/24 09:03 Cholecalciferol (Vit D3) 25 Mcg Tablet (1,000 Units) PO 25 mcg DAILY EVELYN Administration Folic Acid 1 mg 08/19/24 08:00 08/19/24 09:01 Folic Acid 1 Mg Tablet PO 1 mg BREAKFAST EVELYN Administration Hydralazine HCl 25 mg 08/18/24 22:00 08/19/24 05:40 Hydralazine 25 Mg Tablet PO 25 mg TID EVELYN Administration Protocol Sodium Chloride 100 mls @ 15 mls/hr 08/19/24 00:08 IV .Q6H40M PRN Saline Flush Sodium Chloride 100 mls @ 15 mls/hr 08/19/24 00:08 IV .Q6H40M PRN Additional IVPB Infusion Ketoconazole 1 applic 08/18/24 22:00 08/19/24 09:02 Ketoconazole Cream TOPICAL 1 applic BID [facility] Administration Protocol Magnesium Citrate 300 ml 08/18/24 19:49 08/19/24 09:09 Magnesium Citrate 300 Ml PO 300 ml X1 PRN Administration Constipation Multivitamins 1 cap 08/19/24 10:00 08/19/24 09:01 Vitamin B Comp W-C Capsule PO 1 cap DAILY EVELYN Administration Oxycodone HCl 2.5 mg 08/18/24 20:56 08/18/24 21:15 Oxycodone 5 Mg Tablet PO 2.5 mg Q4H PRN PRN Administration Pain Score 6-10 or Pre PT/OT Pantoprazole Sodium 40 mg 08/19/24 10:00 08/19/24 09:03 Pantoprazole Sodium 40 Mg Tablet PO 40 mg DAILY EVELYN Administration Potassium Chloride 20 meq 08/20/24 08:00 Potassium Chloride Oral Tablet 20 Meq PO DAILYCM [facility] Senna/Docusate Sodium 1 tablet 08/18/24 22:00 08/19/24 09:03 Senna/Docusate Sodium 1 Tablet PO 1 tablet BID EVELYN Administration Sodium Chloride 10 - 40 ml 08/19/24 00:08 0.9% Saline Lock 10 Ml Syringe IV UD PRN SALINE FLUSH Thiamine HCl 100 mg 08/19/24 08:00 08/19/24 09:01 Thiamine Hydrochloride 100 Mg Tablet PO 100 mg BREAKFAST EVELYN Administration Triamcinolone Acetonide 1 applic 08/18/24 22:00 08/19/24 09:04 Triamcinolone Acetonide 0.1% Cream 15 Gm TOPICAL Not Given BID [facility] Protocol Tuberculin PPD 0.1 ml 08/26/24 10:00 Tuberculin,Purif.Prot.Deriv. 50 Tu/Ml Vial ID 08/26/24 10:01 X1 ONE Problem List Rhabdomyolysis (Acute) Fatty liver (Acute) GERD (gastroesophageal reflux disease) (Acute) Ascites (Acute) Coronary artery disease (Acute) Atrial fibrillation (Acute) Encephalopathy (Acute) Sepsis (Acute) Paralytic ileus of small intestine (Acute) Pleural effusion, right (Acute) Multiple rib fractures (Acute) Alcohol abuse (Acute) Fall (Acute) Debility (Acute) HFrEF (heart failure with reduced ejection fraction) (Chronic) Essential hypertension (Acute) Cirrhosis (Acute) Vital Signs Temp Pulse Resp BP Pulse Ox O2 Del Method 97.7 F L 77 16 163/58 H 99 Room Air 08/19/24 10:21 08/19/24 10:21 08/19/24 10:21 08/19/24 10:21 08/19/24 10:21 08/19/24 10:21 Oxygen Delivery Method Room Air Weight: 77.111 kg Body Mass Index (BMI) 23.7 Sodium 130 mmol/L (136-145) L 08/19/24 04:09 Potassium 3.2 mmol/L (3.5-5.1) L 08/19/24 04:09 Chloride 100 mmol/L (98-107) 08/19/24 04:09 Carbon Dioxide 23.0 mmol/L (21.0-32.0) 08/19/24 04:09 Anion Gap 8 (5-15) 08/19/24 04:09 BUN 11 mg/dL (7-18) 08/19/24 04:09 Creatinine 0.48 mg/dL (0.70-1.30) L 08/19/24 04:09 Est GFR (MDRD) Af Amer 212 mL/min (>60) 08/19/24 04:09 Est GFR (MDRD) Non-Af 176 mL/min (>60) 08/19/24 04:09 BUN/Creatinine Ratio 22.7 RATIO (10-20) H 08/19/24 04:09 Glucose 95 mg/dL (74-106) 08/19/24 04:09 Assessment/Plan: 1. Pain: acetaminophen 1000mg PO Q6H PRN pain 1-5 and oxycodone 2.5mg PO Q4H PRN pain 6-10. Resident has had one dose of acetaminophen and one dose of oxycodone for pain scores of 10 in the ribs. Please continue to monitor for increased pain, PRN usage, constipation, respiratory depression and falls (Rohini). 2. Bowel: senna/docusate 1T PO BID and magnesium citrate 300mL PO x1 PRN constipation. Resident has had 1 dose of magnesium oxide. Please continue to monitor for constipation and PRN usage. Last documented bowel movement was 08/18. 3. DVT prophylaxis: enoxaparin 40mg SC daily. Please continue to monitor for S/S of bleeding, hemoglobin (last 8.6g/dL), platelets (147,000) and renal function. 4. CAD: aspirin 81mg PO daily. Please continue to monitor for S/S of heart attack/bleeding and hemoglobin. 5. Hypertension: hydralazine 25mg PO TID and amlodipine 5mg PO daily. Please consider increasing one medication or adding another agent as the systolic blood pressures have been >/= 160 since admission. Thanks. Please continue to monitor BP (last 163/58), swelling, headache and facial flushing. 6. GERD: pantoprazole 40mg PO daily and calcium carbonate 500mg PO BID PRN indigestion. Please continue to monitor for S/S of GERD, diarrhea (BEERs), PRN usage (no doses given) and calcium (last 8.7mg/dL). 7. Alcohol abuse: thiamine 100mg PO daily and folic acid 1mg PO daily. Please continue to monitor. 8. Leg cramps/vitamin D deficiency: vitamin B complex 1C PO daily and cholecalciferol 25mcg PO daily. Please consider ordering a vitamin D level as there is no level in the chart. Thanks. 9. Skin irritation/Tinea Corporis: Calmoseptine topical bid, Triamcinolone cream topical bid, Ketoconazole cream topical bid, Bacitracin topical daily. Please continue to monitor. 10. Hypokalemia (based on potassium of 3.2mmo/L): potassium chloride 20mEq PO daily. Given 40mEq x1 this AM. Please continue to monitor potassium levels. Assessment/Plan for indications treated with psychotropic medications: None Medical chart and medication regimen reviewed. The following medication irregularities or issues were identified: 1. Hydralazine 25mg PO TID and amlodipine 5mg PO daily. Please consider increasing one medication or adding another agent as the systolic blood pressures have been >/= 160 since admission. Thanks. 2. Cholecalciferol 25mcg PO daily. Please consider ordering a vitamin D level as there is no level in the chart. Thanks. Date Date of Note: 08/19/24
[2024-08-19 14:27] VITALS: BP 152/68; PULSE 70
[2024-08-19] MEDS: Bisacodyl 10 MG Suppository RC (14:29)
[2024-08-19] MEDS: Lactulose 20 GM/30 ML UDC 200 GM RC (15:36)
[2024-08-19] MEDS: oxyCODONE 5 MG Tablet 2.5 MG PO (15:39)
--- NOTE | 2024-08-19 17:15 | RAD_ITS ---
STUDY: X-RAY - ABDOMEN/PELVIS REASON FOR EXAM: Male, 84 years old. Constipation TECHNIQUE: Frontal views COMPARISON: None. FINDINGS: Right pleural effusion. Gaseous distended bowel loops diffusely may be due to an ileus. There is no demonstrated free abdominal air. Normal soft tissue structures. Normal visualized osseous structures. RAD/Abdomen Single View IMPRESSION: Right pleural effusion. Probable ileus. No significant fecal retention. Electronically Signed: Sidney Montgomery DO at 19:24 EST ,
[2024-08-19 19:57] VITALS: BP 140/65; PULSE 77
[2024-08-20] MEDS: Potassium Chloride Oral Tablet 20 MEQ 40 MEQ PO (03:43)
[2024-08-20] MEDS: 0.9% Normal Saline (1000mL) 1,000 ML 75 ML IV (03:43)
[2024-08-20] MEDS: 0.9% Saline Lock 10 ML Syringe IV (03:44)
[2024-08-20 05:01] LABS: Absolute Lymphocyte Count 0.34 X10^3/uL (0.83-4.51); Absolute Neutrophil Count 1.2 X10^3/uL (2.0-7.7); Basophil# 0.02 X10^3/uL; Basophil% 1.1 % (0-1); Eosinophil# 0.06 X10^3/uL; Eosinophils% 3.2 % (0-5); Hematocrit 27.7 % (40-54); Hemoglobin 8.8 g/dL (13.0-16.5); Lymphocyte # 0.34 X10^3/ul (0.83-4.51); Lymphocyte % 17.9 % (19-41); Mean Corp Hgb Conc 31.8 g/dL (32-36); Mean Corpuscular Hgb 25.5 pg (27.0-32.0); Mean Corpuscular Volume 80.3 fL (80-94); Mean Platelet Vol. 9.8 fl (6.2-12.0); Monocyte# 0.27 X10^3/uL; Monocyte% 14.2 % (0-10); NRBC Flagged by Analyzer 0 % (0-5); Neutrophil % 63.1 % (47-70); POSITIVE DIFFERENTIAL YES; Platelet Count 171 K/mm3 (150-450); RBC Distribution Width CV 18.7 % (11.6-14.6); RBC Distribution Width SD 54.4 fl (35.1-43.9); Red Blood Count 3.45 M/mm3 (4.6-6.2); White Blood Count 1.9 K/mm3 (4.4-11.0)
[2024-08-20 05:06] LABS: Differential Indicated SCAN CRITERIA MET
[2024-08-20 05:22] LABS: ALB/GLOB Ratio 0.8 RATIO (0.9-2.4); AST(SGOT) 24 U/L (15-37); Alanine Aminotransfer ALT/SGPT 25 U/L (16-61); Albumin, Serum 2.8 g/dL (3.2-5.0); Alkaline Phosphatase 98 U/L (45-117); Anion Gap 4 (5-15); BUN 8 mg/dL (7-18); BUN/Creat Ratio 15.7 RATIO (10-20); Calcium,Total 8.9 mg/dL (8.5-10.1); Chloride 102 mmol/L (98-107); Creatinine, Serum 0.51 mg/dL (0.70-1.30); EST Glomerular Filtration Rate 165 mL/min (>60); Est Glom Filt Rate - Afr Amer 200 mL/min (>60); Estimated Creatinine Clearance 75.82 ml/min; Globulin 3.6 g/dL (2.2-4.2); Glucose 114 mg/dL (74-106); Magnesium 1.9 mg/dL (1.6-2.6); Phosphorus 1.8 mg/dL (2.5-4.9); Potassium 3.6 mmol/L (3.5-5.1); Protein, Total 6.4 g/dL (6.4-8.2); Sodium Level 130 mmol/L (136-145)
[2024-08-20 05:33] VITALS: BP 154/66; PULSE 66
[2024-08-20] MEDS: hydrALAZINE 25 MG Tablet PO ×3 (05:33→21:04)
[2024-08-20 06:15] LABS: Differential Comment SCANNED
[2024-08-20] MEDS: Cholecalciferol (VIT D3) 25 MCG TABLET (1,000 UNITS) PO (09:55)
[2024-08-20] MEDS: Folic Acid 1 MG Tablet PO (09:55)
[2024-08-20] MEDS: Senna/Docusate Sodium 1 Tablet PO ×2 (09:55→21:06)
[2024-08-20] MEDS: Thiamine Hydrochloride 100 MG Tablet PO (09:55)
[2024-08-20] MEDS: Aspirin E.C. 81 MG Tablet PO (09:55)
[2024-08-20] MEDS: Vitamin B Comp W-C Capsule 1 CAP PO (09:55)
[2024-08-20] MEDS: Pantoprazole Sodium 40 MG Tablet PO (09:55)
[2024-08-20] MEDS: BACITRACIN 15 GM Tube 1 APPLIC TOPICAL (09:56)
[2024-08-20] MEDS: Menthol/Lanolin/Calamine/Znox 113 GM Tube 1 APPLIC TOPICAL ×2 (09:56→21:09)
[2024-08-20] MEDS: Triamcinolone Acetonide 0.1% Cream 15 gm 1 APPLIC TOPICAL ×2 (09:57→21:09)
[2024-08-20] MEDS: Ketoconazole Cream 1 APPLIC TOPICAL ×2 (09:57→21:09)
[2024-08-20] MEDS: oxyCODONE 5 MG Tablet 2.5 MG PO (09:58)
[2024-08-20 10:00] VITALS: BP 154/69; PULSE 68; RESP 16; TEMP 36.4; O2SAT 97
[2024-08-20] MEDS: amLODIPine 10 MG Tablet PO (11:00)
[2024-08-20] MEDS: Ascorbic Acid 500 MG Tablet PO (11:00)
[2024-08-20] MEDS: Na Biphos/Potassium Phosphate PACKET 1 PACKET PO ×2 (11:00→21:04)
[2024-08-20] MEDS: Iron Polysaccharide Complex 150 MG CAPSULE PO (11:00)
[2024-08-20] MEDS: Potassium Chloride Oral Tablet 20 MEQ PO (11:00)
--- NOTE | 2024-08-20 11:07 | NURSING ---
New orders received from Dr. Serrato 1) Norvasc 10mg po 2) Vit c 500mg po 3) Ferrex 150mg po 4) Phosphate packet po. Patient and family aware of above orders.
[2024-08-20 14:09] VITALS: BP 136/63; PULSE 71
[2024-08-20 14:10] VITALS: PULSE 68; RESP 16; O2SAT 97
[2024-08-20 21:04] VITALS: BP 154/62; PULSE 54
[2024-08-21] VITALS (7 sets, daily range): BP systolic 135–159; BP diastolic 61–66; PULSE 64–77; RESP 16; TEMP 36.9; O2SAT 94–98
[2024-08-21] MEDS: hydrALAZINE 25 MG Tablet PO ×3 (05:46→21:41)
[2024-08-21] MEDS: Acetaminophen 500 MG Tablet 1000 MG PO ×2 (05:46→21:41)
[2024-08-21 06:02] LABS: Anion Gap 4 (5-15); BUN 6 mg/dL (7-18); BUN/Creat Ratio 11.4 RATIO (10-20); Calcium,Total 8.9 mg/dL (8.5-10.1); Chloride 102 mmol/L (98-107); Creatinine, Serum 0.52 mg/dL (0.70-1.30); EST Glomerular Filtration Rate 160 mL/min (>60); Est Glom Filt Rate - Afr Amer 193 mL/min (>60); Estimated Creatinine Clearance 75.82 ml/min; Glucose 111 mg/dL (74-106); Potassium 4.1 mmol/L (3.5-5.1); Sodium Level 130 mmol/L (136-145)
[2024-08-21 09:11] LABS: Vitamin D,25 Hydroxy 43.5 ng/mL
[2024-08-21] MEDS: Ascorbic Acid 500 MG Tablet PO (10:14)
[2024-08-21] MEDS: Pantoprazole Sodium 40 MG Tablet PO (10:14)
[2024-08-21] MEDS: Folic Acid 1 MG Tablet PO (10:14)
[2024-08-21] MEDS: Thiamine Hydrochloride 100 MG Tablet PO (10:14)
[2024-08-21] MEDS: Aspirin E.C. 81 MG Tablet PO (10:15)
[2024-08-21] MEDS: Iron Polysaccharide Complex 150 MG CAPSULE PO (10:15)
[2024-08-21] MEDS: Senna/Docusate Sodium 1 Tablet PO ×2 (10:15→21:42)
[2024-08-21] MEDS: Cholecalciferol (VIT D3) 25 MCG TABLET (1,000 UNITS) PO (10:15)
[2024-08-21] MEDS: Na Biphos/Potassium Phosphate PACKET 1 PACKET PO ×2 (10:15→21:42)
[2024-08-21] MEDS: Vitamin B Comp W-C Capsule 1 CAP PO (10:16)
[2024-08-21] MEDS: Menthol/Lanolin/Calamine/Znox 113 GM Tube 1 APPLIC TOPICAL ×2 (10:17→21:46)
[2024-08-21] MEDS: Ketoconazole Cream 1 APPLIC TOPICAL ×2 (10:18→21:42)
[2024-08-21] MEDS: amLODIPine 10 MG Tablet PO (10:22)
[2024-08-21] MEDS: Potassium Chloride Oral Tablet 20 MEQ PO (10:22)
--- NOTE | 2024-08-21 13:55 | NURSING ---
Radio Interference Investigator Note; Activity Asset: Manuel Franco is independent in his choice of daily activities. He has been a resident on TCU in the past and would like visits from the therapy dog and memory care director when available. He has his smartphone he uses to talk w/family and surf the internet or play games on. His family will visit and bring him items he may need. Salvador prefers in room activities over group at this time. Staff will remind him of weekly activities and respect his right to say no.
--- NOTE | 2024-08-21 15:02 | NURSING ---
This RN changed dressing to the left forearm. Applied nonadherent dressing per order parameters. Skin tear was draining serosanguineous drainage with no odor.
[2024-08-21 16:01] LABS: Pathologist Review Reviewed
[2024-08-21 16:06] LABS: Pathologist Review Reviewed
--- NOTE | 2024-08-21 16:34 | CASEMGMT ---
Social Work SW met with patient to complete initial assessment. Pt known to this worker from previous admission. Verified contacts. Discussed code status and pt wishes to be DNR-CCA, no intubation. Nursing notified. Educated to [facility] insurance with NRD 08/22 and continued stay is not guaranteed with each review. Pt's goal is to return home alone. See SW assessment for details about PLOF and DC barriers. SW will continue to follow for DC planning and support. Adriane Garcia ELECTRICAL PLUMBING SUPERVISOR X RAY ELECTRONICS WIRING TECHNICIAN
[2024-08-21] MEDS: Triamcinolone Acetonide 0.1% Cream 15 gm 1 APPLIC TOPICAL (21:43)
[2024-08-21] MEDS: 0.9% Saline Lock 10 ML Syringe IV (21:47)
[2024-08-22 06:05] VITALS: BP 143/70; PULSE 68
[2024-08-22] MEDS: hydrALAZINE 25 MG Tablet PO ×3 (06:05→21:39)
[2024-08-22] MEDS: Folic Acid 1 MG Tablet PO (09:06)
[2024-08-22] MEDS: Ascorbic Acid 500 MG Tablet PO (09:06)
[2024-08-22] MEDS: Thiamine Hydrochloride 100 MG Tablet PO (09:06)
[2024-08-22] MEDS: Senna/Docusate Sodium 1 Tablet PO ×2 (09:06→21:41)
[2024-08-22] MEDS: Potassium Chloride Oral Tablet 20 MEQ PO (09:06)
[2024-08-22] MEDS: amLODIPine 10 MG Tablet PO (09:07)
[2024-08-22] MEDS: Cholecalciferol (VIT D3) 25 MCG TABLET (1,000 UNITS) PO (09:07)
[2024-08-22] MEDS: Na Biphos/Potassium Phosphate PACKET 1 PACKET PO ×2 (09:07→21:40)
[2024-08-22] MEDS: Pantoprazole Sodium 40 MG Tablet PO (09:08)
[2024-08-22] MEDS: Iron Polysaccharide Complex 150 MG CAPSULE PO (09:08)
[2024-08-22] MEDS: Vitamin B Comp W-C Capsule 1 CAP PO (09:09)
[2024-08-22] MEDS: Aspirin E.C. 81 MG Tablet PO (09:09)
[2024-08-22] MEDS: BACITRACIN 15 GM Tube 1 APPLIC TOPICAL (09:11)
[2024-08-22] MEDS: Menthol/Lanolin/Calamine/Znox 113 GM Tube 1 APPLIC TOPICAL ×2 (09:16→21:39)
[2024-08-22] MEDS: oxyCODONE 5 MG Tablet 2.5 MG PO (09:16)
[2024-08-22] MEDS: Polyethylene Glycol 3350 17 GM PACKET PO (09:17)
[2024-08-22] MEDS: Triamcinolone Acetonide 0.1% Cream 15 gm 1 APPLIC TOPICAL ×2 (10:05→21:41)
[2024-08-22] MEDS: Ketoconazole Cream 1 APPLIC TOPICAL ×2 (10:08→21:42)
[2024-08-22 11:43] VITALS: PULSE 65; RESP 17; O2SAT 96
[2024-08-22 12:22] VITALS: BP 122/59; PULSE 67; RESP 14; TEMP 36.4; O2SAT 98
[2024-08-22 16:04] VITALS: PULSE 68
[2024-08-22 16:56] VITALS: BMI 23.1
[2024-08-22 21:36] VITALS: BP 131/58; PULSE 63
[2024-08-22 21:39] VITALS: BP 131/58; PULSE 63
[2024-08-23 05:35] VITALS: BP 134/65; PULSE 72
[2024-08-23 05:39] VITALS: BP 134/65; PULSE 72
[2024-08-23] MEDS: hydrALAZINE 25 MG Tablet PO ×3 (05:39→20:24)
[2024-08-23] MEDS: Triamcinolone Acetonide 0.1% Cream 15 gm 1 APPLIC TOPICAL (08:58)
[2024-08-23] MEDS: Vitamin B Comp W-C Capsule 1 CAP PO (08:58)
[2024-08-23] MEDS: Aspirin E.C. 81 MG Tablet PO (08:59)
[2024-08-23] MEDS: Iron Polysaccharide Complex 150 MG CAPSULE PO (08:59)
[2024-08-23] MEDS: Polyethylene Glycol 3350 17 GM PACKET PO (08:59)
[2024-08-23] MEDS: Ketoconazole Cream 1 APPLIC TOPICAL ×2 (08:59→20:24)
[2024-08-23] MEDS: Na Biphos/Potassium Phosphate PACKET 1 PACKET PO ×2 (09:00→20:24)
[2024-08-23] MEDS: Thiamine Hydrochloride 100 MG Tablet PO (09:00)
[2024-08-23] MEDS: Senna/Docusate Sodium 1 Tablet PO ×2 (09:00→20:24)
[2024-08-23] MEDS: Pantoprazole Sodium 40 MG Tablet PO (09:00)
[2024-08-23] MEDS: Folic Acid 1 MG Tablet PO (09:00)
[2024-08-23] MEDS: amLODIPine 10 MG Tablet PO (09:00)
[2024-08-23] MEDS: Potassium Chloride Oral Tablet 20 MEQ PO (09:00)
[2024-08-23] MEDS: Cholecalciferol (VIT D3) 25 MCG TABLET (1,000 UNITS) PO (09:00)
[2024-08-23] MEDS: Ascorbic Acid 500 MG Tablet PO (09:00)
[2024-08-23] MEDS: BACITRACIN 15 GM Tube 1 APPLIC TOPICAL (09:01)
[2024-08-23] MEDS: Menthol/Lanolin/Calamine/Znox 113 GM Tube 1 APPLIC TOPICAL ×2 (09:02→20:22)
--- NOTE | 2024-08-23 13:22 | CASEMGMT ---
Addendum entered by Adriane Garcia 08/23/24 16:39: Late entry: Addendum: SW also discussed with pt and son at POC, ST needs. Read GAME ENGINEER notes and explanation to the best of ability. SW noted GAME ENGINEER spoke with pt and son during session this date and pt voiced not seeing a need for ST. With further explanation and encouragement, pt and son agreeable to continue with ST. Original Note: Social Work IDT met with patient and son for care plan meeting. Discussed patient's progress in PT/OT/ST/SN. Educated to [facility] [place] insurance with NRD 08/23 and continued stay is not guaranteed with each review. Discussed pt's goal to return home alone, though, unsure how long the insurance will approve pt to remain in TCU. Suggested having an alternative DC plan, such as hiring PROTECTIVE SIGNAL INSTALLER, [facility] or SNF placement. Educated to OOP cost with all options, expect part B therapies in a SNF or skilled HHC covered by insurance. Son inquired about paying privately to remain in TCU. SW educated to short term stay, requesting 21 days initially, and that is an anticipated LOS. SW offered to provide all resources for family to review. Son agreed. SW answered further questions. SW provided list of nonskilled PROTECTIVE SIGNAL INSTALLER, [facility] and [facility] SNFs INN with [facility] [place], including quality and resource data via [employer]. Provided all-inclusive pricing for TCU. SW will continue to follow. Adriane Garcia, TONNY SYKES
[2024-08-23 15:30] VITALS: PULSE 62
[2024-08-23 16:00] VITALS: BP 138/60; PULSE 73; RESP 16; TEMP 36.2; O2SAT 99
[2024-08-23 20:24] VITALS: BP 133/57; PULSE 72
[2024-08-24 05:40] LABS: Hematocrit 27.8 % (40-54); Hemoglobin 8.8 g/dL (13.0-16.5)
[2024-08-24 05:43] VITALS: BP 138/56; PULSE 71
[2024-08-24] MEDS: hydrALAZINE 25 MG Tablet PO ×3 (05:43→21:43)
[2024-08-24] MEDS: Folic Acid 1 MG Tablet PO (08:49)
[2024-08-24] MEDS: Potassium Chloride Oral Tablet 20 MEQ PO (08:49)
[2024-08-24] MEDS: Aspirin E.C. 81 MG Tablet PO (08:50)
[2024-08-24] MEDS: Iron Polysaccharide Complex 150 MG CAPSULE PO (08:50)
[2024-08-24] MEDS: Vitamin B Comp W-C Capsule 1 CAP PO (08:50)
[2024-08-24] MEDS: Thiamine Hydrochloride 100 MG Tablet PO (08:50)
[2024-08-24] MEDS: Na Biphos/Potassium Phosphate PACKET 1 PACKET PO ×2 (08:51→21:43)
[2024-08-24] MEDS: Polyethylene Glycol 3350 17 GM PACKET PO (08:51)
[2024-08-24] MEDS: Ketoconazole Cream 1 APPLIC TOPICAL (08:51)
[2024-08-24] MEDS: Senna/Docusate Sodium 1 Tablet PO ×2 (08:52→21:43)
[2024-08-24] MEDS: Ascorbic Acid 500 MG Tablet PO (08:52)
[2024-08-24] MEDS: Pantoprazole Sodium 40 MG Tablet PO (08:52)
[2024-08-24] MEDS: amLODIPine 10 MG Tablet PO (08:52)
[2024-08-24] MEDS: Cholecalciferol (VIT D3) 25 MCG TABLET (1,000 UNITS) PO (08:53)
[2024-08-24] MEDS: BACITRACIN 15 GM Tube 1 APPLIC TOPICAL (08:59)
[2024-08-24 14:31] VITALS: TEMP 36.6
[2024-08-24 15:12] VITALS: BP 123/53; PULSE 70
--- NOTE | 2024-08-24 16:50 | CASEMGMT ---
Social Work SW completed BIMS () and PHQ-2 () for MDS assessment. Adriane Garcia, ASSURANCE ASSOCIATE MEAT CURER
[2024-08-24 21:43] VITALS: BP 134/59; PULSE 68
[2024-08-24 22:00] VITALS: PULSE 68; RESP 16; O2SAT 99
[2024-08-25 05:41] VITALS: BP 129/47; PULSE 67
[2024-08-25] MEDS: hydrALAZINE 25 MG Tablet PO ×3 (05:41→19:54)
[2024-08-25 05:56] LABS: Absolute Lymphocyte Count 0.47 X10^3/uL (0.83-4.51); Absolute Neutrophil Count 2.2 X10^3/uL (2.0-7.7); Basophil# 0.02 X10^3/uL; Basophil% 0.6 % (0-1); Eosinophil# 0.07 X10^3/uL; Eosinophils% 2.1 % (0-5); Hematocrit 27.1 % (40-54); Hemoglobin 8.3 g/dL (13.0-16.5); Lymphocyte # 0.47 X10^3/ul (0.83-4.51); Lymphocyte % 14.4 % (19-41); Mean Corp Hgb Conc 30.6 g/dL (32-36); Mean Corpuscular Hgb 24.5 pg (27.0-32.0); Mean Corpuscular Volume 79.9 fL (80-94); Mean Platelet Vol. 9.4 fl (6.2-12.0); Monocyte% 15.3 % (0-10); NRBC Flagged by Analyzer 0 % (0-5); Neutrophil # 2.19 X10^3/uL (2.7-7.7); POSITIVE DIFFERENTIAL YES; Platelet Count 304 K/mm3 (150-450); RBC Distribution Width CV 19.5 % (11.6-14.6); RBC Distribution Width SD 56.7 fl (35.1-43.9); Red Blood Count 3.39 M/mm3 (4.6-6.2); White Blood Count 3.3 K/mm3 (4.4-11.0)
[2024-08-25 06:31] LABS: Anion Gap 5 (5-15); BUN 10 mg/dL (7-18); BUN/Creat Ratio 14.6 RATIO (10-20); Chloride 98 mmol/L (98-107); Creatinine, Serum 0.68 mg/dL (0.70-1.30); EST Glomerular Filtration Rate 118 mL/min (>60); Est Glom Filt Rate - Afr Amer 143 mL/min (>60); Estimated Creatinine Clearance 75.82 ml/min; Glucose 105 mg/dL (74-106); Potassium 4.4 mmol/L (3.5-5.1); Sodium Level 129 mmol/L (136-145)
[2024-08-25] MEDS: Folic Acid 1 MG Tablet PO (07:56)
[2024-08-25] MEDS: Thiamine Hydrochloride 100 MG Tablet PO (07:56)
[2024-08-25] MEDS: Potassium Chloride Oral Tablet 20 MEQ PO (07:56)
[2024-08-25] MEDS: Aspirin E.C. 81 MG Tablet PO (07:56)
[2024-08-25] MEDS: Vitamin B Comp W-C Capsule 1 CAP PO (07:56)
[2024-08-25] MEDS: amLODIPine 10 MG Tablet PO (07:56)
[2024-08-25] MEDS: Iron Polysaccharide Complex 150 MG CAPSULE PO (07:56)
[2024-08-25] MEDS: Cholecalciferol (VIT D3) 25 MCG TABLET (1,000 UNITS) PO (07:57)
[2024-08-25] MEDS: Ascorbic Acid 500 MG Tablet PO (07:57)
[2024-08-25] MEDS: Pantoprazole Sodium 40 MG Tablet PO (07:57)
[2024-08-25] MEDS: Senna/Docusate Sodium 1 Tablet PO ×2 (07:57→19:53)
[2024-08-25 08:48] LABS: Osmolality, Serum 272 mOsm/KG (280-301)
--- NOTE | 2024-08-25 09:06 | NURSING ---
Fuel Cell Battery Technician Note; MDS for 08/25/2024 Complete
[2024-08-25 10:49] VITALS: BP 129/52; PULSE 68; RESP 18; TEMP 36.3; O2SAT 99
[2024-08-25] MEDS: Na Biphos/Potassium Phosphate PACKET 1 PACKET PO ×2 (11:45→19:54)
[2024-08-25] MEDS: Polyethylene Glycol 3350 17 GM PACKET PO (11:45)
[2024-08-25 13:05] LABS: Urine Sodium 97 mmol/L (Not Establ.)
[2024-08-25 13:31] LABS: Osmolality, Urine 547 mOsm/KG
[2024-08-25] MEDS: BACITRACIN 15 GM Tube 1 APPLIC TOPICAL (14:21)
[2024-08-25 17:12] VITALS: PULSE 70
[2024-08-25 19:41] VITALS: BP 134/51; PULSE 67; RESP 18; O2SAT 98
[2024-08-25 19:54] VITALS: PULSE 67
[2024-08-25 20:04] VITALS: O2SAT 98
[2024-08-26] VITALS (7 sets, daily range): BP systolic 123–136; BP diastolic 48–81; PULSE 62–67; RESP 16; TEMP 36.3; O2SAT 97–99
[2024-08-26] MEDS: hydrALAZINE 25 MG Tablet PO ×3 (05:20→20:41)
[2024-08-26 06:00] LABS: Hematocrit 26.9 % (40-54); Hemoglobin 8.3 g/dL (13.0-16.5)
[2024-08-26 07:03] LABS: Anion Gap 8 (5-15); BUN 11 mg/dL (7-18); BUN/Creat Ratio 16.8 RATIO (10-20); Calcium,Total 8.7 mg/dL (8.5-10.1); Chloride 96 mmol/L (98-107); Creatinine, Serum 0.65 mg/dL (0.70-1.30); EST Glomerular Filtration Rate 124 mL/min (>60); Est Glom Filt Rate - Afr Amer 150 mL/min (>60); Estimated Creatinine Clearance 75.82 ml/min; Glucose 101 mg/dL (74-106); Sodium Level 128 mmol/L (136-145)
[2024-08-26] MEDS: Potassium Chloride Oral Tablet 20 MEQ PO (09:19)
[2024-08-26] MEDS: Aspirin E.C. 81 MG Tablet PO (09:19)
[2024-08-26] MEDS: Na Biphos/Potassium Phosphate PACKET 1 PACKET PO ×2 (09:19→20:41)
[2024-08-26] MEDS: Ascorbic Acid 500 MG Tablet PO (09:19)
[2024-08-26] MEDS: Polyethylene Glycol 3350 17 GM PACKET PO (09:19)
[2024-08-26] MEDS: Cholecalciferol (VIT D3) 25 MCG TABLET (1,000 UNITS) PO (09:19)
[2024-08-26] MEDS: Vitamin B Comp W-C Capsule 1 CAP PO (09:19)
[2024-08-26] MEDS: Pantoprazole Sodium 40 MG Tablet PO (09:19)
[2024-08-26] MEDS: Thiamine Hydrochloride 100 MG Tablet PO (09:19)
[2024-08-26] MEDS: Senna/Docusate Sodium 1 Tablet PO ×2 (09:19→20:41)
[2024-08-26] MEDS: amLODIPine 10 MG Tablet PO (09:19)
[2024-08-26] MEDS: BACITRACIN 15 GM Tube 1 APPLIC TOPICAL (09:20)
[2024-08-26] MEDS: Iron Polysaccharide Complex 150 MG CAPSULE PO (09:20)
[2024-08-26] MEDS: Folic Acid 1 MG Tablet PO (09:20)
[2024-08-26] MEDS: Menthol/Lanolin/Calamine/Znox 113 GM Tube 1 APPLIC TOPICAL ×2 (09:20→20:41)
[2024-08-26] MEDS: Tuberculin,Purif.prot.deriv. 50 TU/ML Vial 0.1 ML ID (09:22)
[2024-08-27 05:07] VITALS: PULSE 63
[2024-08-27] MEDS: hydrALAZINE 25 MG Tablet PO ×3 (05:07→22:20)
[2024-08-27 06:27] LABS: Hematocrit 26.2 % (40-54); Hemoglobin 8.5 g/dL (13.0-16.5)
[2024-08-27 07:47] LABS: Anion Gap 7 (5-15); BUN 11 mg/dL (7-18); BUN/Creat Ratio 16.5 RATIO (10-20); Chloride 98 mmol/L (98-107); Creatinine, Serum 0.66 mg/dL (0.70-1.30); EST Glomerular Filtration Rate 122 mL/min (>60); Est Glom Filt Rate - Afr Amer 147 mL/min (>60); Estimated Creatinine Clearance 75.82 ml/min; Glucose 97 mg/dL (74-106); Potassium 3.9 mmol/L (3.5-5.1); Sodium Level 129 mmol/L (136-145)
[2024-08-27] MEDS: Iron Polysaccharide Complex 150 MG CAPSULE PO (08:49)
[2024-08-27] MEDS: Aspirin E.C. 81 MG Tablet PO (08:49)
[2024-08-27] MEDS: Vitamin B Comp W-C Capsule 1 CAP PO (08:49)
[2024-08-27] MEDS: Pantoprazole Sodium 40 MG Tablet PO (08:49)
[2024-08-27] MEDS: Folic Acid 1 MG Tablet PO (08:49)
[2024-08-27] MEDS: Potassium Chloride Oral Tablet 20 MEQ PO (08:49)
[2024-08-27] MEDS: Thiamine Hydrochloride 100 MG Tablet PO (08:49)
[2024-08-27] MEDS: amLODIPine 10 MG Tablet PO (08:50)
[2024-08-27] MEDS: Senna/Docusate Sodium 1 Tablet PO ×2 (08:50→22:20)
[2024-08-27] MEDS: Ascorbic Acid 500 MG Tablet PO (08:50)
[2024-08-27] MEDS: Na Biphos/Potassium Phosphate PACKET 1 PACKET PO (08:50)
[2024-08-27] MEDS: Polyethylene Glycol 3350 17 GM PACKET PO (08:50)
[2024-08-27] MEDS: Menthol/Lanolin/Calamine/Znox 113 GM Tube 1 APPLIC TOPICAL ×2 (08:50→22:22)
[2024-08-27] MEDS: Cholecalciferol (VIT D3) 25 MCG TABLET (1,000 UNITS) PO (08:50)
[2024-08-27 10:01] VITALS: BMI 24.3
[2024-08-27 11:53] VITALS: BP 152/62; PULSE 69; RESP 18; TEMP 36.4; O2SAT 99
[2024-08-27 13:55] VITALS: BP 134/52; PULSE 66
[2024-08-27] MEDS: BACITRACIN 15 GM Tube 1 APPLIC TOPICAL (13:56)
[2024-08-27 22:19] VITALS: BP 144/68; PULSE 74
[2024-08-27 22:20] VITALS: BP 144/68; PULSE 74
[2024-08-28 05:19] VITALS: BP 132/54; PULSE 64
[2024-08-28 05:22] VITALS: BP 132/54; PULSE 64
[2024-08-28] MEDS: hydrALAZINE 25 MG Tablet PO ×3 (05:22→19:47)
[2024-08-28 05:53] LABS: Hematocrit 26.9 % (40-54); Hemoglobin 8.3 g/dL (13.0-16.5)
[2024-08-28 06:20] LABS: Anion Gap 6 (5-15); BUN 12 mg/dL (7-18); BUN/Creat Ratio 18.5 RATIO (10-20); Calcium,Total 8.8 mg/dL (8.5-10.1); Chloride 98 mmol/L (98-107); Creatinine, Serum 0.65 mg/dL (0.70-1.30); EST Glomerular Filtration Rate 125 mL/min (>60); Est Glom Filt Rate - Afr Amer 151 mL/min (>60); Estimated Creatinine Clearance 75.82 ml/min; Glucose 93 mg/dL (74-106); Potassium 4.1 mmol/L (3.5-5.1); Sodium Level 129 mmol/L (136-145)
[2024-08-28] MEDS: Aspirin E.C. 81 MG Tablet PO (08:23)
[2024-08-28] MEDS: Pantoprazole Sodium 40 MG Tablet PO (08:23)
[2024-08-28] MEDS: Folic Acid 1 MG Tablet PO (08:23)
[2024-08-28] MEDS: Potassium Chloride Oral Tablet 20 MEQ PO (08:24)
[2024-08-28] MEDS: Polyethylene Glycol 3350 17 GM PACKET PO (08:24)
[2024-08-28] MEDS: Thiamine Hydrochloride 100 MG Tablet PO (08:24)
[2024-08-28] MEDS: Iron Polysaccharide Complex 150 MG CAPSULE PO (08:24)
[2024-08-28] MEDS: Vitamin B Comp W-C Capsule 1 CAP PO (08:24)
[2024-08-28] MEDS: Senna/Docusate Sodium 1 Tablet PO ×2 (08:25→19:47)
[2024-08-28] MEDS: Cholecalciferol (VIT D3) 25 MCG TABLET (1,000 UNITS) PO (08:25)
[2024-08-28] MEDS: Ascorbic Acid 500 MG Tablet PO (08:25)
[2024-08-28] MEDS: amLODIPine 10 MG Tablet PO (08:25)
[2024-08-28] MEDS: BACITRACIN 15 GM Tube 1 APPLIC TOPICAL (08:29)
--- NOTE | 2024-08-28 09:51 | CASEMGMT ---
Social Work SW received email communication from pt's dtr stating pt and family has elected for pt to remain in TCU following the insurance issuing a DC date for continued therapy. SW educated to private pay policy of 21-days of funds up-front, with reimbursement if pt discharges prior, and an evaluation of continued stay beyond the 21 days at that time. SW will update pt and dtr once insurance issues DC date and offer appeal rights. Will continue to follow. Adriane Garcia, LOCATION ANALYST DIRECTOR TELEMETRY
[2024-08-28 14:09] VITALS: BP 123/54; PULSE 62
[2024-08-28 15:47] VITALS: BP 123/54; PULSE 62; RESP 16; TEMP 36.5; O2SAT 98
[2024-08-28 19:47] VITALS: BP 130/55; PULSE 62
[2024-08-28] MEDS: Menthol/Lanolin/Calamine/Znox 113 GM Tube 1 APPLIC TOPICAL (19:48)
[2024-08-29 05:44] VITALS: BP 123/59; PULSE 65
[2024-08-29] MEDS: hydrALAZINE 25 MG Tablet PO ×3 (05:44→20:41)
[2024-08-29] MEDS: Polyethylene Glycol 3350 17 GM PACKET PO (08:17)
[2024-08-29] MEDS: amLODIPine 10 MG Tablet PO (08:17)
[2024-08-29] MEDS: Iron Polysaccharide Complex 150 MG CAPSULE PO (08:17)
[2024-08-29] MEDS: Thiamine Hydrochloride 100 MG Tablet PO (08:17)
[2024-08-29] MEDS: Cholecalciferol (VIT D3) 25 MCG TABLET (1,000 UNITS) PO (08:17)
[2024-08-29] MEDS: Senna/Docusate Sodium 1 Tablet PO ×2 (08:17→20:41)
[2024-08-29] MEDS: Potassium Chloride Oral Tablet 20 MEQ PO (08:17)
[2024-08-29] MEDS: Aspirin E.C. 81 MG Tablet PO (08:17)
[2024-08-29] MEDS: Vitamin B Comp W-C Capsule 1 CAP PO (08:17)
[2024-08-29] MEDS: Pantoprazole Sodium 40 MG Tablet PO (08:17)
[2024-08-29] MEDS: Folic Acid 1 MG Tablet PO (08:17)
[2024-08-29] MEDS: BACITRACIN 15 GM Tube 1 APPLIC TOPICAL (08:17)
[2024-08-29] MEDS: Ascorbic Acid 500 MG Tablet PO (08:19)
[2024-08-29 08:25] VITALS: BP 137/62; PULSE 74
[2024-08-29 09:18] LABS: Hematocrit 30.7 % (40-54); Hemoglobin 9.3 g/dL (13.0-16.5)
[2024-08-29 13:13] VITALS: BP 133/53; PULSE 65; RESP 18; TEMP 36.2; O2SAT 95
[2024-08-29 13:17] VITALS: PULSE 65
[2024-08-29 20:41] VITALS: BP 129/55; PULSE 68
[2024-08-30 05:01] VITALS: BP 132/64; PULSE 62
[2024-08-30] MEDS: hydrALAZINE 25 MG Tablet PO ×3 (05:01→20:58)
[2024-08-30 06:16] LABS: Anion Gap 7 (5-15); BUN 12 mg/dL (7-18); BUN/Creat Ratio 16.3 RATIO (10-20); Calcium,Total 8.7 mg/dL (8.5-10.1); Chloride 98 mmol/L (98-107); Creatinine, Serum 0.74 mg/dL (0.70-1.30); EST Glomerular Filtration Rate 108 mL/min (>60); Est Glom Filt Rate - Afr Amer 131 mL/min (>60); Estimated Creatinine Clearance 75.82 ml/min; Glucose 95 mg/dL (74-106); Sodium Level 129 mmol/L (136-145)
[2024-08-30] MEDS: Senna/Docusate Sodium 1 Tablet PO ×2 (08:32→20:58)
[2024-08-30] MEDS: amLODIPine 10 MG Tablet PO (08:32)
[2024-08-30] MEDS: Pantoprazole Sodium 40 MG Tablet PO (08:32)
[2024-08-30] MEDS: Potassium Chloride Oral Tablet 20 MEQ PO (08:32)
[2024-08-30] MEDS: Iron Polysaccharide Complex 150 MG CAPSULE PO (08:32)
[2024-08-30] MEDS: Vitamin B Comp W-C Capsule 1 CAP PO (08:32)
[2024-08-30] MEDS: Cholecalciferol (VIT D3) 25 MCG TABLET (1,000 UNITS) PO (08:32)
[2024-08-30] MEDS: Ascorbic Acid 500 MG Tablet PO (08:32)
[2024-08-30] MEDS: Thiamine Hydrochloride 100 MG Tablet PO (08:32)
[2024-08-30] MEDS: Aspirin E.C. 81 MG Tablet PO (08:32)
[2024-08-30] MEDS: Folic Acid 1 MG Tablet PO (08:32)
[2024-08-30] MEDS: Polyethylene Glycol 3350 17 GM PACKET PO (08:35)
[2024-08-30] MEDS: Menthol/Lanolin/Calamine/Znox 113 GM Tube 1 APPLIC TOPICAL (08:38)
[2024-08-30] MEDS: BACITRACIN 15 GM Tube 1 APPLIC TOPICAL (08:38)
[2024-08-30 08:39] VITALS: BP 126/53; PULSE 69
[2024-08-30 13:13] VITALS: BP 123/45; PULSE 63
[2024-08-30 20:52] VITALS: BP 135/57; PULSE 63
[2024-08-30 20:58] VITALS: BP 135/57; PULSE 63
[2024-08-31 05:24] VITALS: BP 143/55; PULSE 57
[2024-08-31] MEDS: hydrALAZINE 25 MG Tablet PO ×3 (05:24→21:06)
--- NOTE | 2024-08-31 08:24 | MDS.RN ---
Information for the MDS was obtained from review of the clinical record, interview of resident, staff, and direct observation of resident?s care.
[2024-08-31 10:22] VITALS: BP 141/66; PULSE 69; RESP 16; TEMP 36.4; O2SAT 99
[2024-08-31] MEDS: Potassium Chloride Oral Tablet 20 MEQ PO (10:28)
[2024-08-31] MEDS: Vitamin B Comp W-C Capsule 1 CAP PO (10:28)
[2024-08-31] MEDS: Thiamine Hydrochloride 100 MG Tablet PO (10:28)
[2024-08-31] MEDS: Folic Acid 1 MG Tablet PO (10:28)
[2024-08-31] MEDS: BACITRACIN 15 GM Tube 1 APPLIC TOPICAL (10:29)
[2024-08-31] MEDS: Aspirin E.C. 81 MG Tablet PO (10:29)
[2024-08-31] MEDS: Menthol/Lanolin/Calamine/Znox 113 GM Tube 1 APPLIC TOPICAL ×2 (10:29→21:07)
[2024-08-31] MEDS: Cholecalciferol (VIT D3) 25 MCG TABLET (1,000 UNITS) PO (10:30)
[2024-08-31] MEDS: Senna/Docusate Sodium 1 Tablet PO ×2 (10:30→21:07)
[2024-08-31] MEDS: amLODIPine 10 MG Tablet PO (10:30)
[2024-08-31] MEDS: Polyethylene Glycol 3350 17 GM PACKET PO (10:30)
[2024-08-31] MEDS: Ascorbic Acid 500 MG Tablet PO (10:30)
[2024-08-31] MEDS: Pantoprazole Sodium 40 MG Tablet PO (10:30)
[2024-08-31] MEDS: Iron Polysaccharide Complex 150 MG CAPSULE PO (10:30)
[2024-08-31 10:52] VITALS: BMI 23.7
[2024-08-31 14:44] VITALS: BP 123/53; PULSE 64
[2024-08-31 20:00] VITALS: PULSE 66; O2SAT 96
[2024-08-31 21:04] VITALS: BP 130/54; PULSE 60
[2024-08-31 21:06] VITALS: BP 130/54; PULSE 60
[2024-09-01 05:22] VITALS: BP 124/57; PULSE 68
[2024-09-01 05:23] VITALS: BP 124/57; PULSE 68
[2024-09-01] MEDS: hydrALAZINE 25 MG Tablet PO ×3 (05:23→20:33)
[2024-09-01 06:01] LABS: Absolute Lymphocyte Count 0.51 X10^3/uL (0.83-4.51); Absolute Neutrophil Count 1.5 X10^3/uL (2.0-7.7); Basophil# 0.03 X10^3/uL; Basophil% 1.3 % (0-1); Eosinophil# 0.06 X10^3/uL; Eosinophils% 2.5 % (0-5); Hematocrit 26.4 % (40-54); Hemoglobin 8.2 g/dL (13.0-16.5); Lymphocyte # 0.51 X10^3/ul (0.83-4.51); Lymphocyte % 21.3 % (19-41); Mean Corp Hgb Conc 31.1 g/dL (32-36); Mean Corpuscular Hgb 25.4 pg (27.0-32.0); Mean Corpuscular Volume 81.7 fL (80-94); Mean Platelet Vol. 9.2 fl (6.2-12.0); Monocyte# 0.34 X10^3/uL; Monocyte% 14.2 % (0-10); NRBC Flagged by Analyzer 0 % (0-5); Neutrophil # 1.45 X10^3/uL (2.7-7.7); Neutrophil % 60.3 % (47-70); POSITIVE DIFFERENTIAL YES; Platelet Count 226 K/mm3 (150-450); RBC Distribution Width CV 19.4 % (11.6-14.6); RBC Distribution Width SD 58.2 fl (35.1-43.9); Red Blood Count 3.23 M/mm3 (4.6-6.2); White Blood Count 2.4 K/mm3 (4.4-11.0)
[2024-09-01 06:46] LABS: Anion Gap 6 (5-15); BUN 16 mg/dL (7-18); BUN/Creat Ratio 22.4 RATIO (10-20); Calcium,Total 8.7 mg/dL (8.5-10.1); Chloride 100 mmol/L (98-107); Creatinine, Serum 0.71 mg/dL (0.70-1.30); EST Glomerular Filtration Rate 112 mL/min (>60); Est Glom Filt Rate - Afr Amer 136 mL/min (>60); Estimated Creatinine Clearance 75.82 ml/min; Glucose 91 mg/dL (74-106); Sodium Level 132 mmol/L (136-145)
[2024-09-01] MEDS: Aspirin E.C. 81 MG Tablet PO (10:00)
[2024-09-01] MEDS: Polyethylene Glycol 3350 17 GM PACKET PO (10:00)
[2024-09-01] MEDS: Vitamin B Comp W-C Capsule 1 CAP PO (10:00)
[2024-09-01] MEDS: Cholecalciferol (VIT D3) 25 MCG TABLET (1,000 UNITS) PO (10:00)
[2024-09-01] MEDS: Folic Acid 1 MG Tablet PO (10:00)
[2024-09-01] MEDS: amLODIPine 10 MG Tablet PO (10:00)
[2024-09-01] MEDS: Senna/Docusate Sodium 1 Tablet PO ×2 (10:00→20:33)
[2024-09-01] MEDS: Pantoprazole Sodium 40 MG Tablet PO (10:00)
[2024-09-01] MEDS: Ascorbic Acid 500 MG Tablet PO (10:00)
[2024-09-01] MEDS: Iron Polysaccharide Complex 150 MG CAPSULE PO (10:00)
[2024-09-01] MEDS: Thiamine Hydrochloride 100 MG Tablet PO (10:00)
[2024-09-01] MEDS: Potassium Chloride Oral Tablet 20 MEQ PO (10:01)
[2024-09-01] MEDS: Menthol/Lanolin/Calamine/Znox 113 GM Tube 1 APPLIC TOPICAL ×2 (10:04→20:33)
[2024-09-01 10:05] VITALS: BP 127/56; PULSE 68
[2024-09-01] MEDS: BACITRACIN 15 GM Tube 1 APPLIC TOPICAL (10:05)
[2024-09-01 13:50] VITALS: BP 127/48; PULSE 67; RESP 18; TEMP 36.4; O2SAT 97
[2024-09-01 13:52] VITALS: BP 127/48; PULSE 67
[2024-09-01] MEDS: Furosemide 40 MG Tablet PO (15:01)
[2024-09-01 20:33] VITALS: BP 127/57; PULSE 63
[2024-09-02 05:53] LABS: Hematocrit 26.4 % (40-54); Hemoglobin 8.5 g/dL (13.0-16.5)
[2024-09-02 06:04] VITALS: BP 140/54; PULSE 56
[2024-09-02 06:05] VITALS: BP 140/54; PULSE 56
[2024-09-02] MEDS: hydrALAZINE 25 MG Tablet PO ×3 (06:05→20:55)
[2024-09-02 08:05] VITALS: BP 128/84; PULSE 67; RESP 16; TEMP 36.8; O2SAT 98
[2024-09-02] MEDS: Thiamine Hydrochloride 100 MG Tablet PO (09:09)
[2024-09-02] MEDS: Potassium Chloride Oral Tablet 20 MEQ PO (09:09)
[2024-09-02] MEDS: Aspirin E.C. 81 MG Tablet PO (09:09)
[2024-09-02] MEDS: Folic Acid 1 MG Tablet PO (09:10)
[2024-09-02] MEDS: amLODIPine 10 MG Tablet PO (09:10)
[2024-09-02] MEDS: Ascorbic Acid 500 MG Tablet PO (09:10)
[2024-09-02] MEDS: Vitamin B Comp W-C Capsule 1 CAP PO (09:10)
[2024-09-02] MEDS: Senna/Docusate Sodium 1 Tablet PO ×2 (09:10→20:56)
[2024-09-02] MEDS: Iron Polysaccharide Complex 150 MG CAPSULE PO (09:10)
[2024-09-02] MEDS: Pantoprazole Sodium 40 MG Tablet PO (09:11)
[2024-09-02] MEDS: Cholecalciferol (VIT D3) 25 MCG TABLET (1,000 UNITS) PO (09:11)
[2024-09-02] MEDS: Polyethylene Glycol 3350 17 GM PACKET PO (09:11)
[2024-09-02] MEDS: Furosemide 40 MG Tablet PO (09:11)
[2024-09-02] MEDS: BACITRACIN 15 GM Tube 1 APPLIC TOPICAL (09:14)
[2024-09-02] MEDS: Menthol/Lanolin/Calamine/Znox 113 GM Tube 1 APPLIC TOPICAL ×2 (09:19→20:55)
[2024-09-02 14:58] VITALS: BP 124/51; PULSE 69
[2024-09-02 16:00] VITALS: RESP 18
[2024-09-02 16:13] VITALS: BMI 23.5
[2024-09-02 20:55] VITALS: BP 125/50; PULSE 61
[2024-09-03 06:04] VITALS: BP 120/55; PULSE 63
[2024-09-03] MEDS: hydrALAZINE 25 MG Tablet PO ×3 (06:04→22:22)
[2024-09-03] MEDS: Furosemide 40 MG Tablet PO (07:59)
[2024-09-03] MEDS: Aspirin E.C. 81 MG Tablet PO (07:59)
[2024-09-03] MEDS: Menthol/Lanolin/Calamine/Znox 113 GM Tube 1 APPLIC TOPICAL ×2 (07:59→22:24)
[2024-09-03] MEDS: Vitamin B Comp W-C Capsule 1 CAP PO (07:59)
[2024-09-03] MEDS: Potassium Chloride Oral Tablet 20 MEQ PO (07:59)
[2024-09-03] MEDS: Iron Polysaccharide Complex 150 MG CAPSULE PO (07:59)
[2024-09-03] MEDS: Folic Acid 1 MG Tablet PO (07:59)
[2024-09-03] MEDS: Thiamine Hydrochloride 100 MG Tablet PO (07:59)
[2024-09-03] MEDS: Polyethylene Glycol 3350 17 GM PACKET PO (08:00)
[2024-09-03] MEDS: Ascorbic Acid 500 MG Tablet PO (08:00)
[2024-09-03] MEDS: amLODIPine 10 MG Tablet PO (08:00)
[2024-09-03] MEDS: Senna/Docusate Sodium 1 Tablet PO ×2 (08:00→22:22)
[2024-09-03] MEDS: Pantoprazole Sodium 40 MG Tablet PO (08:00)
[2024-09-03] MEDS: Cholecalciferol (VIT D3) 25 MCG TABLET (1,000 UNITS) PO (08:00)
[2024-09-03 10:20] VITALS: BP 127/62; PULSE 76; RESP 16; TEMP 36.3; O2SAT 97
[2024-09-03 13:31] VITALS: BP 133/52; PULSE 73
[2024-09-03 22:22] VITALS: BP 121/57; PULSE 66
[2024-09-04 09:24] VITALS: BP 132/65; PULSE 65; RESP 20; TEMP 36.6; O2SAT 97
--- NOTE | 2024-09-04 14:51 | CASEMGMT ---
Addendum entered by Adriane Garcia 09/05/24 09:55: SW followed up with pt on DC plans and preference for continued therapy. Pt prefers [facility]. SW faxed referral to [email or web address]. Original Note: Social Work Insurance issued LCD 09/06, DC 09/07 SW phoned dtr to update on DC date. Explained pt is participating in his care independently and inquired if the plan was for pt to continue paying privately or to return home. Dtr stated she wants pt to remain privately. SW inquired about the goals for pt's continued stay. dtr replied, Oh, I don't know. Do the therapist's think he can go home alone?. Clarified from a physical or cognitive standpoing, or both. Dtr confirmed both areas. SW offered to speak with the therapists and follow up with the dtr on the recommendation. Dtr appreciative. - Pt is off unit for EGD. SW to follow up with pt upon return. - SW spoke with treating JUDIE/MANAGER QUALITY SYSTEMS. Both confirmed pt will be safe at home and OP PT can continue working on weaning pt off device. Continued stay will not change pt's outcomes. - SW returned call to dtr to update. Dtr agreeable for pt to return home. SW educated to HHC vs OP and dtr will have pt decide and notify this worker. Plan: DC home alone 09/07, HHC vs OP PT Adriane Garcia MSW STONE FINISHER
[2024-09-04 14:53] VITALS: BP 130/64; PULSE 67; RESP 14; TEMP 36.6; O2SAT 99; BMI 23.4
--- NOTE | 2024-09-04 14:58 | NURSING ---
Pt off unit for EGD
--- NOTE | 2024-09-04 17:15 | NURSING ---
Pt returned to unit after having EGD completed.
[2024-09-04 20:24] VITALS: BP 125/54; PULSE 61
[2024-09-04] MEDS: Menthol/Lanolin/Calamine/Znox 113 GM Tube 1 APPLIC TOPICAL (20:25)
[2024-09-04] MEDS: Senna/Docusate Sodium 1 Tablet PO (20:26)
[2024-09-04] MEDS: Pantoprazole Sodium 40 MG Tablet PO (20:27)
[2024-09-04 20:28] VITALS: BP 125/54; PULSE 61
[2024-09-04] MEDS: hydrALAZINE 25 MG Tablet PO (20:28)
[2024-09-05] VITALS (7 sets, daily range): BP systolic 116–133; BP diastolic 53–58; PULSE 58–68; RESP 16; TEMP 36.4; O2SAT 97–100; BMI 22.8
[2024-09-05] MEDS: hydrALAZINE 25 MG Tablet PO ×3 (05:29→20:35)
[2024-09-05] MEDS: Folic Acid 1 MG Tablet PO (08:48)
[2024-09-05] MEDS: Potassium Chloride Oral Tablet 20 MEQ PO (08:48)
[2024-09-05] MEDS: Vitamin B Comp W-C Capsule 1 CAP PO (08:48)
[2024-09-05] MEDS: Thiamine Hydrochloride 100 MG Tablet PO (08:48)
[2024-09-05] MEDS: Iron Polysaccharide Complex 150 MG CAPSULE PO (08:49)
[2024-09-05] MEDS: Polyethylene Glycol 3350 17 GM PACKET PO (08:49)
[2024-09-05] MEDS: Furosemide 40 MG Tablet PO (08:49)
[2024-09-05] MEDS: Aspirin E.C. 81 MG Tablet PO (08:49)
[2024-09-05] MEDS: Pantoprazole Sodium 40 MG Tablet PO ×2 (08:50→20:35)
[2024-09-05] MEDS: amLODIPine 10 MG Tablet PO (08:50)
[2024-09-05] MEDS: Ascorbic Acid 500 MG Tablet PO (08:50)
[2024-09-05] MEDS: Senna/Docusate Sodium 1 Tablet PO ×2 (08:50→20:36)
[2024-09-05] MEDS: Cholecalciferol (VIT D3) 25 MCG TABLET (1,000 UNITS) PO (08:51)
--- NOTE | 2024-09-05 19:31 | DS.PCM_ITS ---
Providers Date of Admission: 08/18/24 Primary Care Physician: PARAM Eduardo Consultations 09/02/24 07:27 Consult: Gastroenterology Routine Consulting Provider: Walter Gallegos Reason for Consult: Anemia, +hemoccult. EMERGENT Consult: No MD Notified: Yes Date Notified: 09/02/24 Time Notified: 15:00 Method of Notification: Text Reason For Visit: FALL, RIB FRACTURE Diagnosis Discharge Diagnosis (1) Debility: Status: Acute Code(s): R53.81 - Other malaise (2) Fall: Status: Acute Code(s): W19.XXXA - Unspecified fall, initial encounter Qualifiers: Encounter type: sequela Qualified Code(s): W19.XXXS - Unspecified fall, sequela (3) Multiple rib fractures: Status: Acute Code(s): S22.49XA - Multiple fractures of ribs, unspecified side, initial encounter for closed fracture (4) Pleural effusion, right: Status: Acute Code(s): J90 - Pleural effusion, not elsewhere classified (5) Paralytic ileus of small intestine: Status: Acute Code(s): K56.0 - Paralytic ileus (6) Sepsis: Status: Acute Code(s): A41.9 - Sepsis, unspecified organism (7) Hyponatremia: Status: Resolved Code(s): E87.1 - Hypo-osmolality and hyponatremia (8) Encephalopathy: Status: Acute Code(s): G93.40 - Encephalopathy, unspecified (9) Alcohol abuse: Status: Acute Code(s): F10.10 - Alcohol abuse, uncomplicated (10) Atrial fibrillation: Status: Acute Code(s): I48.91 - Unspecified atrial fibrillation (11) Coronary artery disease: Status: Acute Code(s): I25.10 - Atherosclerotic heart disease of kashia coronary artery without angina pectoris (12) Cirrhosis: Status: Acute Code(s): K74.60 - Unspecified cirrhosis of liver (13) Ascites: Status: Acute Code(s): R18.8 - Other ascites (14) Essential hypertension: Status: Acute Code(s): I10 - Essential (primary) hypertension (15) GERD (gastroesophageal reflux disease): Status: Acute Code(s): K21.9 - Gastro-esophageal reflux disease without esophagitis (16) HFrEF (heart failure with reduced ejection fraction): Status: Chronic Code(s): I50.20 - Unspecified systolic (congestive) heart failure (17) Fatty liver: Status: Acute Code(s): K76.0 - Fatty (change of) liver, not elsewhere classified (18) Rhabdomyolysis: Status: Acute Code(s): M62.82 - Rhabdomyolysis Plan 84 year old male with below past medical history hospitalized for fall, multiple left rib fractures, right pleural effusion, complicated by sepsis, encephalopathy, rhabdomyolysis, hyponatremia, small bowel ileus, alcohol abuse, admitted to TCU with debility, here for rehabilitation, strengthening, prior to discharge home with . * Debility - PT/OT. * Pain - Tylenol 1000mg q6 prn pain (1-5), Oxycodone 2.5mg q4 prn pain (6-10). * Bowel - senna/colace 1 tablet bid, Magnesium citrate 300mL daily prn.. * Adult immunization - Administer pneumonia vaccine, covid vaccine, flu vaccine as appropriate. * DVT prophylaxis - Lovenox 40mg sc daily. * Hypertension - Hydralazine 25mg tid, Amlodipine 5mg daily. * Coronary artery disease - Aspirin 81mg daily. * GERD - Pantoprazole 40mg daily, TUMS 500mg bid prn. * Vitamin D deficiency - D3 25mg daily. * Alcohol abuse - Thiamine 100mg daily, Folic acid 1mg daily. * Tinea Corporis - Ketoconazole cream topical bid. * Skin irritation - Calmoseptine topical bid, Triamcinolone cream topical bid. * Leg cramps - Vitamin B complex 1 capsule daily. Medications at Discharge Home Medications vitamin B complex 1 tab PO DAILY health maintenance 05/15/21 furosemide 40 mg tablet (Lasix) 40 mg PO DAILY #90 tabs 06/16/21 thiamine HCl (vitamin B1) 100 mg tablet (Vitamin B-1) 100 mg PO BREAKFAST supplement #90 tabs 06/16/21 folic acid 1 mg tablet 1 mg PO BREAKFAST supplement 30 days #90 tabs 06/24/21 aspirin 81 mg tablet,delayed release (Adult Low Dose Aspirin) 81 mg PO DAILY PRN health maintenance 08/18/24 calcium carbonate (Alcalak) 168 mg PO DAILY PRN dyspepsia 08/18/24 amlodipine 10 mg tablet 10 mg PO DAILY 30 days #30 tabs 09/05/24 cholecalciferol (vitamin D3) 25 mcg (1,000 unit) tablet 25 mcg PO DAILY #0 tabs 09/05/24 hydralazine 25 mg tablet 25 mg PO TID 30 days #90 tabs 09/05/24 pantoprazole 40 mg tablet,delayed release 40 mg PO BID 30 days #60 tabs 09/05/24 polysaccharide iron complex 150 mg iron capsule (Ferrex) 150 mg PO DAILY 30 days #30 caps 09/05/24 potassium chloride 20 mEq tablet,extended release(part/cryst) 20 meq PO DAILYCM 30 days #30 tabs 09/05/24 Hospital Course Operations None Procedures EGD Summary of Care Provided Minutes Spent on Discharge: 35 Hospital Course: 84 year old male with below past medical history hospitalized for fall, multiple left rib fractures, right pleural effusion, complicated by sepsis, encephalopathy, rhabdomyolysis, hyponatremia, small bowel ileus, alcohol abuse, admitted to TCU with debility, here for rehabilitation, strengthening, prior to discharge home with . 09/04/2024 Dr. 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 - Portal hypertensive gastropathy. - Non-bleeding gastric ulcer with no stigmata of bleeding. Biopsied. - Normal second portion of the duodenum. Recommendations : - Discharge patient to home. - Resume previous diet. - Repeat upper endoscopy in 4 months for surveillance. - Use Protonix (pantoprazole) 40 mg PO BID for 3 months. - Continue present medications. Plan: [facility] home alone 09/07, E[facility] PT. Physical Exam Const alert General Appearance: cooperative HEENT normocephalic Eyes PERRL and EOMs intact bilaterally Neck supple, no JVD and no carotid bruits Resp normal respiratory effort, normal air movement and clear to auscultation bilaterally Cardio regular rate and regular rhythm GI normal to inspection, nondistended, normoactive bowel sounds, non-tender and non-distended Extremity normal capillary refill General Extremity: Negative for edema Skin no rashes or lesions noted General Skin Exam: no breakdown Psych affect normal Appearance: appropriate Weight / BMI Weight Weight: 74.389 kg Body Mass Index (BMI) 22.8 ABG / Lab / Microbiology Data 09/02/24 05:10 09/01/24 05:15 Microbiology: Microbiology 09/01/24 18:00 Stool Stool Occult Blood (HUGO) - Final Occult Blood Positive 08/19/24 17:00 Stool Stool Occult Blood (HUGO) - Final D/C Instructions Discharge Diet: No restrictions Discharge Activity: Return to Normal Activity, May Shower and Use Walker Weight Bearing Status: Weight bearing as tolerated Call your doctor if you observe: Fever of 101 or Higher, Inability to urinate, Inability to have a bowel movement, Shortness of breath, Dizziness, Fainting spells, Swelling in the ankles, Chest pain and Uncontrolled pain DC O2, CPAP, BIPAP Needs Home O2 Discharge instructions: No Additional Instructions: Plan: DC home alone 09/07, [facility] PT. Meaningful Use Info Meaningful Use Meaningful Use Diagnoses (Choose all that apply): None applicable Ischemic Stroke Statin Dosing Therapy Reference: STATIN DOSE THERAPY REFERENCE: * Patients > 75 years receive moderate or high dose statin therapy. * Patients 75 years or YOUNGER should receive HIGH intensity statin dose unless contraindicated. You will be required to document reason for non-treatment if statin daily dose does not meet guidelines. HIGH DOSE STATIN THERAPY DAILY Atorvastatin > than or = to 40 mg Rosuvastatin > than or = to 20 mg Amlodipine + Atorvastatin > than or = to 2.5/40 mg Ezetimibe + Simvastatin 10/80 mg Simvastatin 80mg Discharge Plan Admission Admit Date/Time: 08/18/24 18:47 Primary Reason for Your Visit: Debility. Attending Provider: Kumar Serrato Chi Primary Care Provider: Cassandra Gardner Consulting Providers: Walter Gallegos Instructions Additional Instructions / Restrictions: Plan: DC home alone 09/07, Ery[facility] PT. Discharge Orders/Prescriptions Prescriptions: New polysaccharide iron complex [Ferrex 150] 150 mg iron Capsule 150 mg PO DAILY 30 Days Qty: 30 0RF hydralazine 25 mg Tablet 25 mg PO TID 30 Days Qty: 90 0RF potassium chloride 20 mEq Tablet,Er Particles/Crystals 20 meq PO DAILYCM 30 Days Qty: 30 0RF amlodipine 10 mg Tablet 10 mg PO DAILY 30 Days Qty: 30 0RF pantoprazole 40 mg Tablet,Delayed Release (Dr/Ec) 40 mg PO BID 30 Days Qty: 60 0RF cholecalciferol (vitamin D3) 25 mcg (1,000 unit) Tablet 25 mcg PO DAILY Qty: 0 0RF Continued furosemide [Lasix] 40 mg tablet 40 mg PO DAILY Qty: 90 3RF thiamine HCl (vitamin B1) [Vitamin B-1] 100 mg tablet 100 mg PO BREAKFAST Qty: 90 3RF vitamin B complex Tablet 1 tab PO DAILY aspirin [Adult Low Dose Aspirin] 81 mg tablet,delayed release (DR/EC) 81 mg PO DAILY PRN (Reason: health maintenance) Alcalak 168 mg calcium (420 mg) tablet,chewable 168 mg PO DAILY PRN (Reason: dyspepsia) folic acid 1 mg tablet 1 mg PO BREAKFAST 30 Days Qty: 90 3RF Discontinued amlodipine 5 mg tablet 5 mg PO DAILY 90 Days Qty: 90 triamcinolone acetonide 0.1 % cream 1 applic topical BID clobetasol 0.05 % solution 1 applic topical DAILY Rx Instructions: Apply thin film onto dry scalp affected areas only. Leave in place for 15 minutes before lathering and rinsing. carvedilol 6.25 mg tablet 6.25 mg PO BID Qty: 180 3RF spironolactone 25 mg tablet 25 mg PO DAILY Qty: 90 3RF aspirin 81 mg Tablet 81 mg PO DAILY PRN (Reason: health maintenance) Cetaphil Moisturizing Cream topical DAILY PRN ergocalciferol (vitamin D2) 1,250 mcg (50,000 unit) capsule 1,250 mcg PO QWEEK hydralazine 25 mg tablet 25 mg PO TID hydrocortisone 1 % cream 1 applic topical BID PRN (Reason: itching) ketoconazole 2 % cream 1 applic topical BID Rx Instructions: Apply to affected area oxycodone 5 mg tablet 2.5 mg PO Q8H PRN (Reason: pain) pantoprazole 40 mg tablet,delayed release (DR/EC) 40 mg PO DAILY lisinopril 2.5 mg tablet 2.5 mg PO DAILY Qty: 90 3RF Referrals / Follow Up: Cassandra Gardner NP-C [Primary Care Provider] - Disposition Disposition (needs filled in before D/C Order can be placed): Home, Self Care
[2024-09-06] VITALS (8 sets, daily range): BP systolic 115–147; BP diastolic 50–64; PULSE 62–70; RESP 16–18; TEMP 36.8; O2SAT 100
[2024-09-06] MEDS: hydrALAZINE 25 MG Tablet PO ×3 (05:37→20:46)
[2024-09-06] MEDS: Folic Acid 1 MG Tablet PO (07:47)
[2024-09-06] MEDS: Potassium Chloride Oral Tablet 20 MEQ PO (07:48)
[2024-09-06] MEDS: Vitamin B Comp W-C Capsule 1 CAP PO (07:48)
[2024-09-06] MEDS: Thiamine Hydrochloride 100 MG Tablet PO (07:48)
[2024-09-06] MEDS: Aspirin E.C. 81 MG Tablet PO (07:49)
[2024-09-06] MEDS: Iron Polysaccharide Complex 150 MG CAPSULE PO (07:49)
[2024-09-06] MEDS: Menthol/Lanolin/Calamine/Znox 113 GM Tube 1 APPLIC TOPICAL ×2 (07:49→20:48)
[2024-09-06] MEDS: Furosemide 40 MG Tablet PO (07:49)
[2024-09-06] MEDS: Polyethylene Glycol 3350 17 GM PACKET PO (07:50)
[2024-09-06] MEDS: Ascorbic Acid 500 MG Tablet PO (07:50)
[2024-09-06] MEDS: Senna/Docusate Sodium 1 Tablet PO ×2 (07:50→20:46)
[2024-09-06] MEDS: amLODIPine 10 MG Tablet PO (07:50)
[2024-09-06] MEDS: Pantoprazole Sodium 40 MG Tablet PO ×2 (07:50→20:46)
[2024-09-06] MEDS: Cholecalciferol (VIT D3) 25 MCG TABLET (1,000 UNITS) PO (07:51)
--- NOTE | 2024-09-06 09:39 | CASEMGMT ---
Social Work SW completed BIMS () and PHQ-2 () for MDS assessment. SW wished pt well and encouraged pt not to continue drinking. Pt agreed. Adriane Garcia GLASS RIBBON MACHINE OPERATOR ASSISTANT TRANSIT COACH OPERATOR
[2024-09-07 06:05] VITALS: BP 128/67; PULSE 68
[2024-09-07] MEDS: hydrALAZINE 25 MG Tablet PO (06:05)
[2024-09-07 06:53] VITALS: PULSE 68; O2SAT 95
[2024-09-07 08:31] VITALS: BP 130/50; PULSE 74; RESP 16; TEMP 36.4; O2SAT 100
[2024-09-07] MEDS: amLODIPine 10 MG Tablet PO (08:35)
[2024-09-07] MEDS: Cholecalciferol (VIT D3) 25 MCG TABLET (1,000 UNITS) PO (08:36)
[2024-09-07] MEDS: Senna/Docusate Sodium 1 Tablet PO (08:36)
[2024-09-07] MEDS: Polyethylene Glycol 3350 17 GM PACKET PO (08:36)
[2024-09-07] MEDS: Thiamine Hydrochloride 100 MG Tablet PO (08:36)
[2024-09-07] MEDS: Vitamin B Comp W-C Capsule 1 CAP PO (08:36)
[2024-09-07] MEDS: Pantoprazole Sodium 40 MG Tablet PO (08:36)
[2024-09-07] MEDS: Potassium Chloride Oral Tablet 20 MEQ PO (08:36)
[2024-09-07] MEDS: Aspirin E.C. 81 MG Tablet PO (08:36)
[2024-09-07] MEDS: Iron Polysaccharide Complex 150 MG CAPSULE PO (08:36)
[2024-09-07] MEDS: Ascorbic Acid 500 MG Tablet PO (08:36)
[2024-09-07] MEDS: Folic Acid 1 MG Tablet PO (08:36)
[2024-09-07] MEDS: Menthol/Lanolin/Calamine/Znox 113 GM Tube 1 APPLIC TOPICAL (08:41)
== END 2024-09-07 11:33 | disposition home or self-care (01) | DRG 560 ==
PROVIDERS: Admitting Provider Family Medicine Geriatric Medicine; PCP Nurse Practitioner Family; Visit Provider Family Medicine Geriatric Medicine
DX: S22.42XD Multiple fractures of ribs, left side, subsequent encounter for fracture with routine healing (principal); I50.22 Chronic systolic (congestive) heart failure; M62.82 Rhabdomyolysis; J91.8 Pleural effusion in other conditions classified elsewhere; K56.0 Paralytic ileus; I48.19 Other persistent atrial fibrillation; K76.6 Portal hypertension; K70.11 Alcoholic hepatitis with ascites; B35.4 Tinea corporis; I11.0 Hypertensive heart disease with heart failure; K25.9 Gastric ulcer, unspecified as acute or chronic, without hemorrhage or perforation; K74.60 Unspecified cirrhosis of liver; F10.10 Alcohol abuse, uncomplicated; K76.0 Fatty (change of) liver, not elsewhere classified; I25.10 Atherosclerotic heart disease of native coronary artery without angina pectoris; E55.9 Vitamin D deficiency, unspecified; K21.9 Gastro-esophageal reflux disease without esophagitis; W19.XXXD Unspecified fall, subsequent encounter; Z87.891 Personal history of nicotine dependence; Z79.82 Long term (current) use of aspirin; R29.6 Repeated falls; Z79.899 Other long term (current) drug therapy
CPT/HCPCS: 36415; 74018; 80048; 80053; 82274; 82306; 83540; 83550; 83735; 83930; 83935; 84100; 84300; 85014; 85018; 85025; 92507; 92523; 97110; 97116; 97129; 97161; 97166; 97530; 97535; 97802; A4216

== ENCOUNTER 2024-09-04 15:03 | Day surgery (SDC) | payer MEDICARE, SELFPAY ==
[2024-09-04] VITALS (7 sets, daily range): BP systolic 108–139; BP diastolic 48–63; PULSE 46–62; RESP 12–18; TEMP 36.6–37.1; O2SAT 97–100; BMI 23.1
--- NOTE | 2024-09-04 | GASB_PTH ---
PATIENT: BREEZY GLASS Jr. LOC: EN U#:[id number] AGE/SX: 84/M ROOM: RE09/04/[address]: Dr. Walter Gallegos DO : 1940 BED: DIS: 09/04/2024 SPEC #: [id number] RECD: 09/05/24 08:59 STATUS: GONZALO RESanjuana #: [id number] POLY: 09/04/24 00:[address]: Walter Gallegos DEPT: SURGICAL PATHOLOGY RECD BY: Abebe Ramon ENTERED: 09/05/24 08:59 SP TYPE: Gastric Bx OTHR DR: Cassandra Gardner, MEAT LUGGER-C Tissues: Gastric mucous membrane Procedures: Special Stain Group I Surgery Specimen Level IV Alcian Blue/PAS (control) HEADER OPERATION: EGD with biopsy PRE-OP DIAGNOSIS: Anemia, cirrhosis TISSUE SUBMITTED: Gastric ulcer biopsy MICROSCOPIC DIAGNOSIS Gastric ulcer, biopsy: Mild gastritis. See microscopic description and comment. 09/06/2024 COMMENT The results of immunohistochemistry for Helicobacter pylori will be reported separately ([id number]). Alcian blue/PAS stain with matched control is used in the evaluation of the specimen. MICROSCOPIC DESCRIPTION Slides are reviewed. The specimen shows fragments of gastric mucosa with chronic inflammatory cell infiltrates in the lamina propria consisting of lymphocytes and plasma cells, consistent with mild chronic gastritis. 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 GROSS DESCRIPTION Received in fixative is one container labeled with the patient's name and designated Gastric ulcer biopsy. The specimen consists of one irregular fragment of light haskins soft tissue that measures 0.5 x 0.2 x 0.1 cm. The specimen is totally submitted in one cassette. / 09/05/2024 TC:3 CPT:94353,25594
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
--- NOTE | 2024-09-04 16:00 | IMM_PTH ---
PATIENT: BREEZY GLASS Jr. LOC: EN U#:[id number] AGE/SX: 84/M ROOM: RE09/04/[address]: Dr. Walter Gallegos DO : 1940 BED: DIS: 09/04/2024 SPEC #: [id number] RECD: 09/05/24 09:04 STATUS: GONZALO RESanjuana #: [id number] POLY: 09/04/24 16:[address]: Walter Gallegos DEPT: IMMUNOHISTOCHEMISTRY RECD BY: Karl Hayes ENTERED: 09/05/24 09:04 SP TYPE: IMMUNO OTHR DR: Cassandra Gardner, OPENSTACK CLOUD CONSULTING ARCHITECT-C Tissues: Gastric mucous membrane Procedures: H Pylori (initial) PHYSICIAN & INSTITUTION [place] [id number] SPECIMEN INFORMATION: Tissue Source: Gastric ulcer biopsy Clinical Info: Anemia, cirrhosis Specimen Number: [id number] CPT code: 29931 METHODOLOGY: Deparaffinized sections of prefer/formalin-fixed tissue or PAP/DQ stained slides are incubated with monoclonal/polyclonal antibodies/oligonucleotide probes. Localization is made via biotin free immunoperoxidase method. Appropriate controls are performed and reacted as expected. Results on target cell population are indicated in the following table: RESULTS: ANTIBODY / CLONE RESULT H Pylori (polyclonal) negative These tests were developed and their performance characteristics determined by [facility]. They may not have been cleared or approved by the U.S. Food and Drug Administration. The FDA has determined that such clearance or approval is not necessary. The above immunohistochemical/dualISH markers are ordered and reviewed by the Pathologist. INTERPRETATION: Gastric ulcer, biopsy: Negative for Helicobacter pylori organisms. 09/06/2024
--- NOTE | 2024-09-04 16:19 | OP.EGD_ITS ---
Patient Name: Salvador Borges Procedure Date: 09/04/2024 4:05 PM Date of : 1940 Age: 84 Procedure: Upper GI endoscopy Indications: Iron deficiency anemia, Cirrhosis with suspected esophageal varices Providers: Walter Gallegos DO Medicines: Monitored Anesthesia Care Patient Profile: This is an 84 year old male. Refer to note in patient chart for documentation of history and physical. Patient has symptoms of acute dyspepsia. His most recent EGD for treatment of bleeding. Complications: No immediate complications. Procedure: Pre-Anesthesia Assessment: - Prior to the procedure, a History and Physical was performed, and patient medications and allergies were reviewed. The patient is competent. The risks and benefits of the procedure and the sedation options and risks were discussed with the patient. All questions were answered and informed consent was obtained. Patient identification and proposed procedure were verified by the physician in the pre-procedure area. Mental Status Examination: alert and oriented. Airway Examination: normal oropharyngeal airway and neck mobility. Respiratory Examination: clear to auscultation. CV Examination: normal. Prophylactic Antibiotics: The patient does not require prophylactic antibiotics. Prior Anticoagulants: The patient has taken no anticoagulant or antiplatelet agents except for NSAID medication. ASA Grade Assessment: II - A patient with mild systemic disease. After reviewing the risks and benefits, the patient was deemed in satisfactory condition to undergo the procedure. The anesthesia plan was to use monitored anesthesia care (MAC). Immediately prior to administration of medications, the patient was re-assessed for adequacy to receive sedatives. The heart rate, respiratory rate, oxygen saturations, blood pressure, adequacy of pulmonary ventilation, and response to care were monitored throughout the procedure. The physical status of the patient was re-assessed after the procedure. After obtaining informed consent, the endoscope was passed under direct vision. Throughout the procedure, the patient's blood pressure, pulse, and oxygen saturations were monitored continuously. The Endoscope was introduced through the mouth, and advanced to the second part of duodenum. The upper GI endoscopy was accomplished without difficulty. The patient tolerated the procedure well. Scope In: 4:12:32 PM Scope Out: 4:14:45 PM Total Procedure Duration Time 0 hours 2 minutes 13 seconds Findings: There were esophageal mucosal changes suspicious for Espinosa's esophagus present in the lower third of the esophagus. The maximum longitudinal extent of these mucosal changes was 3 cm in length. Mild portal hypertensive gastropathy was found in the cardia and in the gastric fundus. One non-bleeding linear gastric ulcer with no stigmata of bleeding was found in the gastric antrum. The lesion was 6 mm in largest dimension. Biopsies were taken with a cold forceps for histology. Verification of patient identification for the specimen was done. Estimated blood loss was minimal. Biopsies were taken with a cold forceps for Helicobacter pylori testing. Verification of patient identification for the specimen was done. Estimated blood loss was minimal. The second portion of the duodenum was normal. 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 - Portal hypertensive gastropathy. - Non-bleeding gastric ulcer with no stigmata of bleeding. Biopsied. - Normal second portion of the duodenum. Recommendation: - Discharge patient to home. - Resume previous diet. - Repeat upper endoscopy in 4 months for surveillance. - Use Protonix (pantoprazole) 40 mg PO BID for 3 months. - Continue present medications. Procedure Code(s): --- Professional --- 66049, Esophagogastroduodenoscopy, flexible, transoral; with biopsy, single or multiple CPT copyright 2021 [employer]. All rights reserved. The codes documented in this report are preliminary and upon transportation coordinator review may be revised to meet current compliance requirements. Walter Gallegos DO 09/04/2024 4:19:25 PM This report has been signed electronically. Number of Addenda: 0 Note Initiated On: 09/04/2024 4:05 PM
--- NOTE | 2024-09-04 16:20 | OP.CCLET_ITS ---
09/04/2024 Raciel Eduardo Re : Upper GI endoscopy procedure for Salvador Statonr Jj This procedure was performed on Wednesday, September 04, 2024. 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 - Portal hypertensive gastropathy. - Non-bleeding gastric ulcer with no stigmata of bleeding. Biopsied. - Normal second portion of the duodenum. Recommendations : - Discharge patient to home. - Resume previous diet. - Repeat upper endoscopy in 4 months for surveillance. - Use Protonix (pantoprazole) 40 mg PO BID for 3 months. - Continue present medications. My findings are described in the full procedure note, which is enclosed. If I can be of further assistance, please feel free to contact me at . Sincerely, Walter Gallegos, 09/04/2024 4:19:25 PM This report has been signed electronically.
--- NOTE | 2024-09-04 16:49 | PCM.POST.ANE ---
Anesthesia: Postop Eval I Current Vital Signs Temperature: 98.8 F Pulse Rate: 53 Blood Pressure: 135/62 Respiratory Rate: 16 Pulse Ox: 99 Assessment Airway patent: Yes Spontaneous unlabored respirations: Yes nausea: No Vomiting: No Anesthesia Complication: No Fluid Hydration Crystalloid volume administer (ml): 10 Total IV fluid infused: 100 Progress Note Anesthesia document: Postop Eval 1 completed: Yes
--- NOTE | 2024-09-04 16:50 | PCM.POSTANE2 ---
Anesthesia Postop Eval I Sum Postop Eval Completion status Anesthesia document: Postop Eval 1 completed: Yes Anesthesia Postop Eval I Summary Anesthesia Postop Eval I Summary: Anesthesia Postop Eval I: Assessment Summary Airway patent Yes 09/04/24 16:50 Spontaneous unlabored Yes 09/04/24 16:50 respirations Mental status nausea No 09/04/24 16:50 Vomiting No 09/04/24 16:50 Anesthesia Postop Eval I: Fluid Summary Crystalloid volume administer 10 09/04/24 16:50 (ml) Colloids volume administered ( ml) Blood Product volume administered (ml) Total IV fluid infused 100 09/04/24 16:50 Anesthesia Postop Eval I: Summary Notes Anesthesia Complication No 09/04/24 16:50 Anesthesia Complication Comment: Post-operative progress note Anesthesia: Postop Eval II Evaluation Mental status: Awake Pain Level: 0 nausea: No Vomiting: No
== END 2024-09-04 17:04 | disposition home or self-care (01) ==
LOC: EN 15:04 → AC 15:14
PROVIDERS: PCP Nurse Practitioner Family; Referring Provider Nurse Practitioner Family; Visit Provider Internal Medicine Gastroenterology
PROC: 0DJ08ZZ Inspection of Upper Intestinal Tract, Via Natural or Artificial Opening Endoscopic (ICD-10-PCS; CPT 43235; principal; 2024-09-04 15:55)
DX: K25.9 Gastric ulcer, unspecified as acute or chronic, without hemorrhage or perforation (principal); D61.818 Other pancytopenia; K76.6 Portal hypertension; K70.30 Alcoholic cirrhosis of liver without ascites; I11.0 Hypertensive heart disease with heart failure; I50.22 Chronic systolic (congestive) heart failure; F10.20 Alcohol dependence, uncomplicated; K70.10 Alcoholic hepatitis without ascites; R16.1 Splenomegaly, not elsewhere classified; Z87.891 Personal history of nicotine dependence; D50.9 Iron deficiency anemia, unspecified; K29.70 Gastritis, unspecified, without bleeding
CPT/HCPCS: 43239; 88305; 88312; 88342; A4216

== ENCOUNTER 2024-09-20 11:43 | Outpatient (RCR) | payer MEDICARE, SELFPAY ==
--- NOTE | 2024-09-20 13:01 | HP.PTEVAL_ITS ---
Patient's Visit Information Visit Information Visit Information: BREEZY GLASS Jr. is a 84 year old M referred to Physical Therapy by Dr. Kumar Serrato MD with a diagnosis of Debility after fall, rib fx. Date of Evaluation: 09/20/24 Physical Therapist: Jefferson Ayon DPT Visit Plan Frequency: 1x/Week Duration: 6 Weeks Plan: 1) BLE strengthening 2) dynamic balance training 3) progressive walking program. Subjective Subjective: Pt. is here today for his initial evaluation with diagnosis of fall, debility and rib fx. Pt. reports falling at home on around the 10 of August. Pt. reports laying through the night until help came. Pt. reports no longer having any rib pain. Pt. reports only falling once prior. Pt. is back home and reports he is overall doing well. Pt. lives by him self and reports no major issues at this point in time. Pt. reports no N/T, no neuropathy. Pt. reports doing all work and ADLs at home with issues. Pt. is back to driving. Steps to basement, but does not have to go down there. He uses basement as storage. Pt. Objective Objective: POSTURE: Pt. has slight FH posture, rest is normal. PALPATION: No pain noted with palpation of BLEs. Pt. does have slight tenderness in ribs, but minimal NEURO: normal x4 extremities ROM: Pt. has normal B hip and knee ROM, slight tightness in B calves. Lumbar spine: min loss throughout. B shoulders: mid loss in OH flexion and abduction motions MMT: RLE: knee: ext 47.1#,flexion 33.1#; hip: flexion 30.3#, abd 33.7# RLE: knee: ext 49.9#, flexion 32.7#; hip: flexion 29.0#, abd 44.8# R shoulder: flexion 10#, abd 8# L shoulder flexion 12#, abd 9#. GAIT: Pt. has fairly normal gait pattern. Slight loss of B arm swing, normal step length. Slight flexed posture noted. STAIRS: Pt. is able to complete with reciprocal pattern with 2 HR. Pt. has much more difficulty with removal of B HRs. Balance/Special Test Scores Functional Gait Assessment Score: 22 % Disability: 26.6700 Lower Extremity Functional Score: 45 TUG Test Time Seconds: 9.3 30 Second Chair Rise Test Seconds: 14 6 Minute Walk Test: Pt. was able to ambulate 768feet in 3:46. pt. reports incr eased fatigue as limiting factor. Goals Goal 1:: LTG: Pt. to be I with HEP. Goal Time Frame: 4-6 Weeks Goal 2:: LTG: Pt. to have increased BLE strength increased by 5# throughout. Goal Time Frame: 4-6 Weeks Goal 3:: LTG: pt. to complete 6 MWT with distance of at least 1000' Goal Time Frame: 4-6 Weeks Goal 4:: LTG: Pt. to be able to walk throughout grocery stores without reports of fear of falling. Goal Time Frame: 4-6 Weeks Rehabilitation Potential Physical Therapy Diagnosis: Pt. has signs and symptoms consistent with debility after fall and subsequent BLE weakness, slight difficulty with balance and decreased endurance. Pt. would benefit from PT to address the above limitation progressing back to all household activities without limitations. Rehabilitation Potential: Excellent Anticipated Interventions Patient/Client Instruction: Educate patient on: Condition, Plan of Care, Risk Factors and Benefits of Fitness Program For the Purpose of:: To foster healthy habits, To improve decision making, To facilitate caregiver knowledge, To improve self management, To prevent re- injury, To improve ability to perform tasks related to life management and To improve tolerance to ADL's Therapeutic Exercise to Include: Strength training, Power training, Endurance training and Gait and locomotor training For the Purpose of:: To increase oxygenation perfusion, To improve gait and loc omotor functions and To improve health of tissue Text: Thank you for the opportunity to evaluate your patient. For Medicare and Medicare HMO plans, please review the plan of care and approve it. It will need to be FAXED BACK to us at [phone] for Medicare purposes. For Medicare only, by signing this I certify the plan of care. Please let me know if there are questions or concerns regarding this plan of care. Physician Signature: Date:
== END 2024-09-20 19:00 | disposition home or self-care (01) ==
LOC: PT 11:43
PROVIDERS: PCP Nurse Practitioner Family; Referring Provider Family Medicine Geriatric Medicine; Visit Provider Family Medicine Geriatric Medicine
DX: S22.39XD Fracture of one rib, unspecified side, subsequent encounter for fracture with routine healing (principal); R53.81 Other malaise; R29.6 Repeated falls; Z91.81 History of falling
CPT/HCPCS: 97161

== ENCOUNTER 2025-01-08 07:08 | Day surgery (SDC) | payer MEDICARE, SELFPAY ==
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
[2025-01-08] VITALS (8 sets, daily range): BP systolic 134–163; BP diastolic 58–76; PULSE 58–65; RESP 14–16; TEMP 36.4–36.8; O2SAT 99–100; BMI 23.6
--- OUTSIDE RECORDS SUMMARY | 2025-01-08 07:17 | XMS RPT_ITS | CCD ---
Author Organization [facility] Inform ion Partnership [facility] Care Team Providers Care Metal Expediter Name Role Phone Jes Funk Primary Care Provider Nilda DONALD, Walter Haas Primary Care Provider Nilda DONALD, Walter Haas Primary Care Provider Nilda DONALD, Walter Haas Primary Care Provider KEV WALLACE Attending Unavailab WALTER Lee Primary Care Unavailable WALTER MUNGUIA Primary Care Unavailable ADRIANNE GRAVES Attending Unavailable HANNY SU Attending Unavailable WALTER MUNGUIA Primary Care Unavailable Nilda DONALD, Walter Haas Primary Care Provider Sandra COMPUTER AIDED DESIGN OPERATOR, Nanci Primary Care Provider TIFFANY TRIANA Attending Unavailletha e NANCI FLORES Primary Care Unavailable TIFFANY TRIANA Referring Unavailabl e SELF Referring Unavailable NANCI FLORES Primary Care Unavailable TIFFANY TRIANA Attending Unavailabl e Melany Flores Pa-C Primary Care Provider Sandra HartC Melany MILLER Primary Care Provider [facility] Consulting TRAN Montano Attending Unavailable WALTER MUNGUIA Primary Care Unavailable SYSTEM, PROVIDER NOT IN Referring Unavaila CONNOR Jewell Admitting Unavailab le SANDRA PA-CMELANY Primary Care Unavailable ROSI LLOYD Attending Unavailable SHELTON JAY Referring Unavailable SANDRA PA-CMELANY Primary Care Unavailable Sandra HERNANDES Nanci Primary Care Provider [phone] El, Walter Consulting Unavailable Sandra Nanci Primary Care Unavailable Rojelio, Kumar Chi Attending Unavailable Rojelio, Kumar Chi Admitting Unavailable FriendWalter Attending Unavailable Sandra, Nanci Primary Care Unavailable Sandra, Nanci Referring Unavailable Sandra, Nanci Primary Care Unavailable Rojelio, Kumar Chi Referring Unavailable RojelioKumar bernal Chi Attending Unavailable Friend, Walter Attending Unavailable Friend, Walter Consulting Unavailable Sandra, Nanci Referring Unavailable Sandra, Nanci Primary Care Unavailable Sandra, Nanci Referring Unavailable Sandra, Nanci Primary Care Unavailable Friend, Walter Attending Unavailable Allergies Allergy Classification Reported Allergen(s) Allergy Type Date of Onset Reaction(s) Facility (1 source) tiZANidine Drug Allergy 01-05-2025 [facility] Repository Medications Current Medications Medication Drug Class(es) Dates Sig (Normalized) Sig (Original) amLODIPine 5 mg oral tablet (20 sources) Dihydropyridine Calcium Channel Elier Start: 05-14-2017 End: 06-11-2022 take 1 tablet by mouth once daily amLODIPine (NORVASC) 5 MG tablet Take 1 (one) tablet (5 mg total) by mouth daily . 05/14/2017 Active amoxicillin 500 mg / clavulanate 125 mg oral tablet (4 sources) Penicillin-class Antibacterial Start: 06-10-2022 End: 06-18-2022 take 1 tablet by mouth every eight hours amoxicillin-clav ulanate (AUGMENTIN) 500-125 mg per tablet Take 1 (one) tablet by mouth every 8 (eight) hours for 7 days . 21 tablet 0 06/11/2022 06/18/2022 Active Start: 06-07-2022 End: 06-11-2022 amoxicillin-clavulanate (AUG MENTIN) 500-125 mg per tablet 1 tablet b complex vitamins capsule (20 sources) take 1 capsule by mo [facility] once daily b complex vitamins capsule Take 1 (one) capsule by mouth daily . Active take 1 capsule by mouth once sushma ly b complex vitamins capsule Take 1 capsule by mouth once daily. Active take 1 capsule by mouth once sushma ly b complex vitamins capsule Take 1 (one) capsule by mouth daily . 0 Active take 1 capsule by mouth once sushma ly b complex vitamins capsule Take 1 capsule by mouth daily . 0 take 1 capsule by mouth once sushma ly b complex vitamins capsule Take 1 capsule by mouth daily . 0 Active Cetaphil moisturizing lotion (2 sources) Cetaphil moistur izing lotion Apply topically once daily. Active clobetasol propionate 0.5 mg/ml topical solution (20 sources) Corticosteroid Start: 06-13-2021 Clobetasol Active 1 APPLIC TOPICAL DAILY June 13, 2021 2:17pm Start: 05-08-2021 End: 05-16-2021 Clobetasol Discontinued 1 AP PLIC TOPICAL DAILY May 08, 2021 10:02am May 16, 2021 1:19pm Comment on above: Apply to affected ar ea. ergocalciferol 1.25 mg oral capsule (2 sources) Provitamin D2 Compound Start: take 1 capsule by mouth every week ergocalciferol (ERGOCALCIFEROL) 1,250 mcg (50,000 unit) capsule Take 1 (one) capsule (50,000 Units total) by mouth once a week Start: 08/20/24. 4 capsule 08/20/2024 Active fluocinonide 0.5 mg/ml topical solution (2 sources) Corticosteroid Start: fluocinonide (LIDEX) 0.05 % external solution Apply to affected area two times a day. 03/01/2024 Active folic acid 1 mg oral tablet (20 sources) Start: End: take 1 tablet by mouth once daily folic acid 1 mg tablet Take 1 mg by mouth once daily. 01/09/2022 Active Start: 05-16-2021 End: 06-24-2021 take 1 mg by mouth at breakfast Folic Acid Discontinue d 1 MG PO WITH BREAKFAST May 21, 2021 7:41pm June 24, 2021 3:19pm Comment on above: Take 1 mg by mouth o nce daily. fhimtnjc-sybzgmcrhda-bwzpm, wh (cetaphil) Crea (3 sources) glycerin-dimethi cone-manuel, wh (cetaphil) Crea Apply topically . Active glycerin-dimethi cone-manuel, wh (cetaphil) Crea Apply topically . 0 Active ketoconazole 20 mg/ml topical cream (17 sources) Azole Antifungal Start: 12-13-2021 ketoconazole (NIZORAL) 2 % cream APPLY CREAM TOPICALLY TO AFFECTED AREA TWICE DAILY 02/07/2022 Active Comment on above: APPLY CREAM TOPICALL Y TO AFFECTED AREA TWICE DAILY pantoprazole 40 mg delayed release oral tablet (20 sources) Proton Pump Inhibitor Start: 01-09-2022 End: 06-11-2022 take 1 tablet by mouth once daily pantoprazole (PROTONIX) 40 MG tablet Take 1 (one) tablet (40 mg total) by mouth daily . 01/09/2022 Active Start: 05-16-2021 End: 06-24-2021 take 40 mg by mouth twice daily Pantoprazole Discontinued 40 MG PO TWICE A DAY 60 30 May 21, 2021 7:41pm June 16, 2021 3:39pm Comment on above: Take 40 mg by mouth once daily. sodium chloride 0.854 meq/ml ophthalmic solution (14 sources) Start: 04-24-2024 take 1 drop(s) into the eye(s) every other day sodium chloride (RENEE 128) 5 % ophthalmic solution Use 1 Drop in both eyes every other day. 04/24/2024 Active Start: 03-27-2024 End: 04-24-2024 take 1 drop(s) into the eye(s) once daily at bedtime sodium chloride (RENEE 128) 5 % ophthalmic solution Use 1 Drop in both eyes daily at bedtime. 15 mL 03/27/2024 04/24/2024 Discontinued Start: 06-07-2022 End: 06-11-2022 sodium chloride (PF) (NS) fl ush 5 mL Start: 06-07-2022 End: 06-07-2022 sodium chloride 0.9% (NS) nanci lincoln 500 mL Start: 04-09-2022 End: 05-15-2022 take 1 tablet by mouth three times daily at mealtime sodium chloride 1,000 mg TbSO Take 1 (one) tablet (1,000 mg total) by mouth 3 (three) times a day with meals . 90 tablet 0 04/15/2022 05/15/2022 Active Start: 04-07-2022 End: 04-15-2022 sodium chloride (PF) (NS) fl ush 5 mL Start: 04-07-2022 End: 04-08-2022 take 50 mL intravenously every hour 50 mL/hr, Intravenous, Continuous, Starting on Wed04/07/22 at 0450 thiamine 100 mg oral tablet (17 sources) Start: 08-19-2024 take 1 tablet by mouth once daily thiamine 100 MG tablet Take 1 (one) tablet (100 mg total) by mouth daily Start: 08/19/24. 30 tablet 08/19/2024 Active Start: 06-08-2022 End: 09-03-2022 take 1 tablet by mouth once daily thiamine 100 MG tablet Take 1 (one) tablet (100 mg total) by mouth daily . 30 tablet 0 06/11/2022 09/03/2022 Discontinued (Patient's Request) Start: 05-16-2021 End: 06-16-2021 take 1 tablet by mouth at breakfast Thiamine Hcl (Vitamin B1) (Vitamin B-1) 100 mg tablet Discontinued 100 MG PO WITH BREAKFAST May 21, 2021 7:41pm June 16, 2021 3:39pm triamcinolone acetonide 1 mg/ml topical cream (20 sources) Corticosteroid Start: 05-08-2021 Triamcinolone Acetonide Active 1 APPLIC TOPICAL DAILY May 08, 2021 10:02am triamcinolone (K ENALOG) 0.1 % cream Indications: scalp psoriasis Apply topically 2 (two) times a day Reasons: Psoriasis of Scalp. Active Comment on above: Apply to affected ar ea. vit B complex 100 no.2/herbs (VITAMIN B COMPLEX 100 2-HERBS ORAL) (4 sources) vit B complex 10 0 no.2/herbs (VITAMIN B COMPLEX 100 2-HERBS ORAL) Take by mouth. Active vit B complex 10 0 no.2/herbs (VITAMIN B COMPLEX 100 2-HERBS ORAL) Take by mouth. 0 Active Comment on above: Take by mouth. Vitamin B Complex (2 sources) Start: 05-15-2021 take 1 tablet by mouth once daily Vitamin B Complex Active 1 TABLET PO DAILY May 15, 2021 12:16pm Start: 05-15-2021 take 1 tablet by mouth once da lore Vitamin B Complex Active 1 TABLET PO DAILY May 15, 2021 12:00am Completed/Discontinued Medications Medication Drug Class(es) Dates Sig (Normalized) Sig (Original) acetaminophen 325 mg oral tablet (1 source) Start: 04-07-2022 End: 04-15-2022 take 1 tablet by mouth every six hours as needed for headache and pain 650 mg, Oral, Every 6 hours PRN, headaches, fever 100.4 F or greater, mild pain, infusion related reactions, Starting on Wed04/07/22 at 0446 albuterol 0.83 mg/ml inhalation solution (1 source) beta2-Adrenergic Agonist Start: 08-29-2018 End: 08-29-2018 albuterol sulfate Discontinued 2.5 MG Continuous Nebulization ONCE 3 August 29, 2018 12:26pm August 29, 2018 1:07pm aluminum hydroxide 40 mg/ml / magnesium hydroxide 40 mg/ml / simethicone 4 mg/ml oral suspension (1 source) Start: 04-07-2022 End: 04-15-2022 take 30 mL by mouth every four hours as needed 30 mL, Oral, Every 4 hours PRN, indigestion, Starting on Wed04/07/22 at 0446 aspirin 81 mg delayed release oral tablet (20 sources) Platelet Aggregation Inhibitor, Nonsteroidal Anti-inflammatory Drug Start: 06-07-2022 End: 06-11-2022 take 81 mg by mouth once daily 81 mg, Oral, Daily, First dose on Wed06/07/22 at 0900 DO NOT CRUSH OR CHEW. Start: 04-07-2022 End: 04-15-2022 take 81 mg by mouth once daily 81 mg, Oral, Daily, Fir st dose on Wed04/07/22 at 0900 DO NOT CRUSH OR CHEW. Start: 05-15-2021 take 81 mg by mouth once daily Aspirin Active 81 MG PO DAILY May 15, 2021 12:16pm Start: 03-03-2019 End: 03-02-2020 take 1 tablet by mouth once daily aspirin 81 MG EC tablet Take 1 (one) tablet (81 mg total) by mouth daily . 150 tablet 2 03/03/2019 03/02/2020 Active take 1 tablet by betito th once daily aspirin 81 mg chewable tablet Take 81 mg by mouth once daily. Active End: 03-03-2019 take 2 tablets by mouth every four hours as needed aspirin 325 MG tablet Take 650 mg by mouth every 4 (four) hours as needed for pain . 0 03/03/2019 Discontinued Comment on above: Take 81 mg by mouth once daily. aspirin/sod bicarb/citric acid (ANTACID AND PAIN RELIEF ORAL) (2 sources) End: 03-01-2023 aspirin/sod bicarb/citric acid (ANTACID AND PAIN RELIEF ORAL) Take by mouth. 0 03/01/2023 Discontinued (Discontinued by Patient) aspirin/sod bica rb/citric acid (ANTACID AND PAIN RELIEF ORAL) Take by mouth. 0 Active Comment on above: Take by mouth. azithromycin 250 mg oral tablet (2 sources) Macrolide Antimicrobial Start: End: Azithromycin Discontinued 0 PO .COMPLEX 6 August 29, 2018 3:14pm May 08, 2021 9:59am take 500 mg today (day 1), then 250 mg for 4 days (days 2-5) PO bacitracin zinc 0.5 unt/mg topical ointment (1 source) Start: End: bacitracin zinc ointment bisacodyl 10 mg rectal suppository (1 source) Stimulant Laxative Start: End: take 10 mg rectal route once daily as needed for constipation 10 mg, Rectal, Daily PRN, constipation, Starting on Wed04/07/22 at 0900 Try oral medications first for constipation. Try rectal medication if oral meds are ineffective, not tolerated, or not ordered. calcium carbonate 500 mg oral tablet (20 sources) Start: End: take 500 mg by mouth every four hours as needed Calcium Carbonate Discontinued 500 MG PO EVERY 4 HOURS NEEDED May 15, 2021 12:16pm May 16, 2021 1:19pm calcium carbonat e 168 mg calcium (420 mg) Chew Chew and Swallow daily as needed . Active carvedilol 6.25 mg oral tablet (11 sources) alpha-Adrenergic Elier, beta-Adrenergic Elier Start: 06-16-2021 End: 03-01-2023 take 1 tablet by mouth twice daily carvedilol (COREG) 6.25 mg tablet Take 6.25 mg by mouth twice daily. 0 01/09/2022 03/01/2023 Discontinued (Discontinued by another Health Care Provider) Start: 05-16-2021 End: 06-16-2021 take 3.125 mg by mouth twice daily Carvedilol Discontinued 3.125 MG PO TWICE A DAY 60 30 May 21, 2021 7:41pm June 16, 2021 3:39pm Comment on above: Take 6.25 mg by mout h twice daily. ceFAZolin 1000 mg injection (1 source) Cephalosporin Antibacterial Start: 2021 End: 2021 ceFAZolin (ANCEF) IVPB 1 g (premix) cephalexin 500 mg oral capsule (2 sources) Cephalosporin Antibacterial Start: 2020 End: 2020 take 500 mg by mouth every eight hours Cephalexin Discontinued 500 MG PO Q8H May 08, 2021 10:50am May 16, 2021 1:19pm Received 7 days supply on May 08. 12 hr dextromethorphan hydrobromide 30 mg / guaiFENesin 600 mg extended release oral tablet (2 sources) Uncompetitive T-jxhkoe-L-aspartat e Receptor Antagonist, Sigma-1 Agonist Start: 2020 End: 2020 take 1 tablet by mouth every twelve hours as needed Dextromethorphan-G uaifenesin (Mucinex Dm) 30-600 mg Tablet Extended Release 12 Hr Discontinued 1 TABLET PO EVERY 12 HOURS NEEDED May 15, 2021 12:16pm May 16, 2021 1:19pm docusate sodium 100 mg oral capsule (1 source) Start: 2021 End: 2021 take 100 mg by mouth once daily 100 mg, Oral, Daily, First dose on Wed04/07/22 at 0900 [] Hold for loose stools. DO NOT CRUSH OR CHEW. doxycycline hyclate 100 mg oral tablet (2 sources) Tetracycline-class Drug Start: 2018 End: 2020 take 100 mg by mouth once daily Doxycycline Hyclate Discontinued 100 MG PO DAILY August 29, 2018 1:00pm May 08, 2021 9:59am 0.4 ml enoxaparin sodium 100 mg/ml prefilled syringe (1 source) Low Molecular Weight Heparin Start: 2021 End: 2021 inject 40 mg by subcutaneous injection once daily 40 mg, Subcutaneous, Daily, First dose on Wed04/12/22 at 1100 Administer in abdomen unless otherwise directed by prescriber. Notify physician if patient refuses. Indication: VTE Prophylaxis flu vacc [id number](65yr up)-PF (FLUZONE HIGH-DOSE) syringe 0.7 mL (1 source) Start: 2021 End: 2021 inject 0.7 mL by intramuscular injection every twenty-four hours as needed flu vacc [id number](65yr up)-PF (FLUZONE HIGH-DOSE) syringe 0.7 mL furosemide 20 mg oral tablet (10 sources) Loop Diuretic Start: 2021 End: 2021 furosemide (LASIX) tablet 20 mg Start: 06-16-2021 End: 03-01-2023 take 1 tablet by mouth once daily furosemide (LASIX) 40 mg tablet Take 40 mg by mouth once daily. 0 01/09/2022 03/01/2023 Discontinued (Discontinued by another Health Care Provider) Start: 05-21-2021 End: 06-13-2021 take 40 mg by mouth once daily Furosemide Discontinued 40 MG PO DAILY 3 3 May 21, 2021 7:39pm June 13, 2021 2:15pm Comment on above: Take 40 mg by mouth once daily. hydrALAZINE hydrochloride 25 mg oral tablet (20 sources) Arteriolar Vasodilator Start: 08-12-2024 End: 08-12-2024 take 25 mg by mouth once 25 mg, oral, Once, On 08/12/24 at 1920, For 1 dose Start: 06-07-2022 End: 06-11-2022 take 10 mg intravenously every six hours as needed hydrALAZINE (APRESOLINE) injection 10 mg Start: 06-07-2022 End: 06-11-2022 take 25 mg by mouth three times daily 25 mg, Oral, 3 times daily, First dose on 06/07/22 at 0900 Start: 04-15-2022 End: 05-15-2022 take 0.5 tablet by mouth three times daily hydrALAZINE (APRESOLINE) 50 MG tablet Take 0.5 (one-half) tablet (25 mg total) by mouth 3 (three) times a day . 45 tablet 0 04/15/2022 Active Start: 05-14-2017 End: 04-15-2022 hydrALAZINE (APRESOLINE) 50 mg tablet 05/14/2017 Active hydroCHLOROthiazide 25 mg oral tablet (12 sources) Thiazide Diuretic Start: 08-29-2018 End: 05-16-2021 take 12.5 mg by mouth once daily Hydrochlorothiazide Discontinued 12.5 MG PO DAILY 45 90 August 29, 2018 12:59pm May 16, 2021 1:19pm Start: 05-21-2017 End: 03-01-2023 hydroCHLOROthiazide (HYDRODI URIL, ESIDRIX) 25 mg tablet 0 05/21/2017 03/01/2023 Discontinued (Discontinued by another Health Care Provider) Start: 05-21-2017 End: 04-15-2022 hydroCHLOROthiazide (HYDRODI URIL) 25 MG tablet Take 12.5 mg by mouth daily . 0 05/21/2017 04/15/2022 Discontinued (Stop Taking at Discharge) hydrocortisone valerate 2 mg/ml topical cream (20 sources) Corticosteroid Start: 08-29-2018 End: 05-08-2021 Hydrocortisone Valerate Discontinued 1 APPLIC TOPICAL AT BEDTIME August 29, 2018 1:02pm May 08, 2021 9:59am hydrocortisone 1 % cream Apply topically 2 (two) times a day . Active hydrocortisone 1 % lotion Apply topically 2 times a day. Active iohexol (OMNIPaque) 350 mg iodine/mL solution 100 mL (1 source) Start: 08-12-2024 End: 08-12-2024 100 mL, intravenous, Once in imaging, Starting on 08/12/24 at 1812, For 1 dose Iopamidol (1 source) Radiographic Contrast Agent Start: 04-09-2022 End: 04-09-2022 iopamidol (ISOVUE-370) 76 % oral solution 6 mL iopamidoL (ISOVUE-370) 76 % injection 75 mL (1 source) Start: 04-09-2022 End: 04-09-2022 iopamidoL (ISOVUE-370) 76 % injection 75 mL lisinopril 2.5 mg oral tablet (13 sources) Angiotensin Converting Enzyme Inhibitor Start: 05-16-2021 End: 03-01-2023 take 1 tablet by mouth once daily lisinopril 2.5 mg tablet Take 2.5 mg by mouth once daily. 0 01/09/2022 03/01/2023 Discontinued (Discontinued by another Health Care Provider) Comment on above: Take 2.5 mg by mouth once daily. magnesium hydroxide 80 mg/ml oral suspension (2 sources) Start: 06-07-2022 End: 06-11-2022 magnesium hydroxide (MOM) 400 mg/5 mL suspension 2,400 mg Start: 04-07-2022 End: 04-15-2022 take 2400 mg by mouth once daily as needed for constipation 2,400 mg (30 mL), Oral, Daily PRN, constipation, Starting on Wed04/07/22 at 0446 If no bowel movement in 24 hours after Sennosides (SENNA) administration. 50 ml magnesium sulfate 40 m g/ml injection (1 source) Start: 04-09-2022 End: 04-09-2022 magnesium sulfate 2 g in sterile water (SW) 50 mL IVPB melatonin 5 mg oral tablet (2 sources) Start: 06-07-2022 End: 06-11-2022 melatonin Tab 5 mg Start: 04-07-2022 End: 04-15-2022 take 3 mg by mouth once daily as needed for sleep 3 mg, Oral, Nightly PRN, Sleep, Starting on Wed04/07/22 at 0900 If still awake in 1 hour proceed to trazodone (Desyrel) 1 ml morphine sulfate 4 mg/ml prefilled syringe (2 sources) Opioid Agonist Start: 08-12-2024 End: 08-12-2024 4 mg, intravenous, Once, On 08/12/24 at 2340, For 1 dose 2 ml ondansetron 2 mg/ml injection (1 source) Serotonin-3 Receptor Antagonist Start: 08-12-2024 End: 08-12-2024 4 mg, intravenous, Once, On 08/12/24 at 1925, For 1 dose, When administering via IV Push, administer over 3-5 minutes. ondansetron (ZOFRAN-ODT) disintegrating tablet 4 mg (2 sources) Start: 06-07-2022 End: 06-11-2022 take 1 tablet by mouth every six hours as needed for nausea and vomiting ondansetron (ZOFRAN-ODT) disintegrating tablet 4 mg Start: 04-07-2022 End: 04-15-2022 take 1 tablet by mouth every six hours as needed for nausea and vomiting ondansetron (ZOFRAN-ODT) disintegrating tablet 4 mg perflutren lipid microspheres (DEFINITY) 0.143 mg/mL solution 0-10 mL of mixture (1 source) Start: 04-07-2022 End: 04-09-2022 perflutren lipid microspheres (DEFINITY) 0.143 mg/mL solution 0-10 mL of mixture polyethylene glycol 3350 [id number] mg powder for oral solution (1 source) Osmotic Laxative Start: 04-09-2022 End: 04-15-2022 polyethylene glycol (MIRALAX) powder 17 g potassium bicarbonate 25 meq effervescent oral tablet (1 source) Start: 06-07-2022 End: 06-07-2022 potassium bicarbonate (K-LYTE) 25 MEQ disintegrating tablet 50 mEq microencapsulated potassium chloride 20 meq extended release oral tablet (2 sources) Start: 06-07-2022 End: 06-07-2022 potassium chloride SA (K-DUR,KLOR-CON) CR tablet 40 mEq Start: 04-11-2022 End: 04-12-2022 take 1 tablet by mouth every four hours potassium chloride SA (K-DUR,KLOR-CON) CR tablet 20 mEq sennosides, chcf 8.6 mg oral tablet (1 source) Start: 04-07-2022 End: 04-15-2022 take 1 tablet by mouth twice daily as needed for constipation 8.6 mg (1 tablet), Oral, 2 times daily PRN, constipation, Starting on Wed04/07/22 at 0900 sodium chloride 0.9 % 1,000 mL with mvi, adult no.4 with vit K 10 mL, thiamine 100 mg, folic acid 1 mg infusion (1 source) Start: 06-07-2022 End: 06-07-2022 sodium chloride 0.9 % 1,000 mL with mvi, adult no.4 with vit K 10 mL, thiamine 100 mg, folic acid 1 mg infusion spironolactone 25 mg oral tablet (5 sources) Aldosterone Antagonist Start: 06-16-2021 End: 03-01-2023 take 1 tablet by mouth once daily spironolactone (ALDACTONE) 25 mg tablet Take 25 mg by mouth once daily. 0 01/09/2022 03/01/2023 Discontinued (Discontinued by another Health Care Provider) Comment on above: Take 25 mg by mouth once daily. tolvaptan 15 mg oral tablet (4 sources) Vasopressin V2 Receptor Antagonist Start: 04-11-2022 End: 04-11-2022 tolvaptan (SAMSCA) tablet 30 mg Start: 04-10-2022 End: 04-10-2022 tolvaptan (SAMSCA) tablet 30 mg Start: 04-09-2022 End: 04-09-2022 tolvaptan (SAMSCA) tablet 15 mg Start: 04-08-2022 End: 04-08-2022 tolvaptan (SAMSCA) tablet 7. 5 mg traZODone hydrochloride 50 mg oral tablet (1 source) Serotonin Reuptake Inhibitor Start: 04-07-2022 End: 04-15-2022 take 50 mg by mouth once daily as needed for sleep 50 mg, Oral, Nightly PRN, sleep, Starting on Wed04/07/22 at 0900 To be administered 1 hour after melatonin if still awake. May repeat x 1 dose in 30 minutes if still awake. tropicamide 10 mg/ml ophthalmic solution (4 sources) Anticholinergic Start: 03-27-2024 End: 03-27-2024 tropicamide 1 % 1 Drop (MYDRIACYL) Start: 03-27-2024 End: 03-27-2024 1 Drop, BOTH EYES, ONCE, 1 d ose, On Wed03/27/24 at 1200, FOR THE EYE Start: 03-01-2023 End: 03-01-2023 tropicamide 1 % 1 Drop (MYDR IACYL) Start: 01-12-2022 End: 01-12-2022 tropicamide 1 % 1 Drop (MYDR IACYL) Problems Active Problems Problem Classification Problem Date Documented Da te Episodic/Chronic Acute bronchitis (2 sources) Acute bronchitis; Translations: [Acute bronchitis, unspecified] Episodic Alcohol-related disorders (12 sources) Alcohol abuse; Translations: [Alcohol abuse, uncomplicated] Onset: 08-13-2024 Chronic Aspiration pneumonitis; food/vomitus (2 sources) Aspiration pneumonia; Translations: [Pneumonitis due to inhalation of food and vomit] Episodic Asthma (2 sources) Asthma; Translations: [Unspecified asthma, uncomplicated] Chronic Cardiac dysrhythmias (20 sources) Atrial fibrillation; Translations: [Unspecified atrial fibrillation] Onset: 03-03-2019 03-03-2019 Chronic Cataract (6 sources) Bilateral pseudophakia; Translations: [Presence of intraocular lens] Onset: 08-16-2017 08-16-2017 Chronic Coagulation and hemorrhagic disorders (2 sources) Platelet count below reference range; Translations: [Thrombocytopenia, unspecified] Chronic Congestive heart failure; nonhypertensive (2 sources) Heart failure with reduced ejection fraction; Translations: [Unspecified systolic (congestive) heart failure] Chronic Coronary atherosclerosis and other heart disease (2 sources) History of non-ST segment elevation myocardial infarction; Translations: [Old myocardial infarction] Onset: 05-13-2021 Chronic Deficiency and other anemia (4 sources) Pancytopenia; Translations: [Other pancytopenia] Chronic Deficiency and other anemia (1 source) Other pancytopenia; Translations: [Other pancytopenia] Onset: 09-19-2024 Chronic Deficiency and other anemia (2 sources) Anemia; Translations: [Anemia, unspecified] Episodic E Codes: Place of occurrence (2 sources) Unspecified place in unspecified non-institutional (private) residence as the place of occurrence of the external cause; Translations: [Unspecified place in unspecified non-institutional (private) residence as the place of occurrence of the external cause] Onset: 06-07-2022 Episodic Essential hypertension (20 sources) Hypertensive disorder; Translations: [Essential (primary) hypertension] Onset: 03-03-2019 03-03-2019 Chronic Fever of unknown origin (2 sources) Fever; Translations: [Fever, unspecified] Episodic Hemorrhoids (2 sources) Hemorrhoids; Translations: [Unspecified hemorrhoids] Episodic Osteoarthritis (2 sources) Osteoarthritis; Translations: [Unspecified osteoarthritis, unspecified site] Chronic Other connective tissue disease (2 sources) Olecranon bursitis; Translations: [Olecranon bursitis, unspecified elbow] Episodic Other connective tissue disease (2 sources) Bursitis; Translations: [Bursopathy, unspecified] Episodic Other ear and sense organ disorders (2 sources) Bilateral sensory hearing loss; Translations: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 Result Comment: Canc elled via OM: Order cancelled - Patient discharged Performed By: #### L 100.0600 #### [facility] [address] [place], [address] RDW CV Normal 11.6-14.6 [facility] Comment on above: Result Comment: Canc elled via OM: Order cancelled - Patient discharged Performed By: #### L 100.0600 #### [facility] [address] [place], [address] RDW SD Normal 35.1-43.9 [facility] Comment on above: Result Comment: Canc elled via OM: Order cancelled - Patient discharged Performed By: #### L 100.0600 #### [facility] [address] [place], [address] WBC Normal 4.4-11.0 [facility] Comment on above: Result Comment: Canc elled via OM: Order cancelled - Patient discharged Performed By: #### L 100.0600 #### [facility] [address] [place], [address] Inital Evaluation (1) - PTon 09-20-2024 Inital Evaluation (1) - PT [facility] [address] [place] [address] / REHABILITATION SERVICES INITIAL EVALUATION MR#: [id number] Acct: [id number] Name: SALVADOR GLASS WISAM Levi Rep #: [id number] : 1940 84 From: Jefferson Ayon DPT Referring Dr.: Dr. Kumar Serrato MD Status: REG RCR Insurance: [employer] PPO SELF PAY INSURANCE Patient's Visit Information Visit Information Visit Information: SALVADOR GLASS Jr. is a 84 year old M referred to Physical Therapy by Dr. Kumar Serrato MD with a diagnosis of Debility after fall, rib fx. Date of Evaluation: 09/20/24 Physical Therapist: Jefferson Ayon DPT Visit Plan Frequency: 1x/Week Duration: 6 Weeks Plan: 1) BLE strengthening 2) dynamic balance training 3) progressive walking program. Subjective Subjective: Pt. is here today for his initial evaluation with diagnosis of fall, debility and rib fx. Pt. reports falling at home on around the 10 of August. Pt. reports laying through the night until help came. Pt. reports no longer having any rib pain. Pt. reports only falling once prior. Pt. is back home and reports he is overall doing well. Pt. lives by him self and reports no major issues at this point in time. Pt. reports no N/T, no neuropathy. Pt. reports doing all work and ADLs at home with issues. Pt. is back to driving. Steps to basement, but does not have to go down there. He uses basement as storage. Pt. Objective Objective: POSTURE: Pt. has slight FH posture, rest is normal. PALPATION: No pain noted with palpation of BLEs. Pt. does have slight tenderness in ribs, but minimal NEURO: normal x4 extremities ROM: Pt. has normal B hip and knee ROM, slight tightness in B calves. Lumbar spine: min loss throughout. B shoulders: mid loss in [place] flexion and abduction motions MMT: RLE: knee: ext 47.1#,flexion 33.1#; hip: flexion 30.3#, abd 33.7# RLE: knee: ext 49.9#, flexion 32.7#; hip: flexion 29.0#, abd 44.8# R shoulder: flexion 10#, abd 8# L shoulder flexion 12#, abd 9#. GAIT: Pt. has fairly normal gait pattern. Slight loss of B arm swing, normal step length. Slight flexed posture noted. STAIRS: Pt. is able to complete with reciprocal pattern with 2 HR. Pt. has much more difficulty with removal of B HRs. Balance/Special Test Scores Functional Gait Assessment Score: 22 % Disability: 26.6700 Lower Extremity Functional Score: 45 TUG Test Time Seconds: 9.3 30 Second Chair Rise Test Seconds: 14 6 Minute Walk Test: Pt. was able to ambulate 768feet in 3:46. pt. reports increased fatigue as limiting factor. Goals Goal 1:: LTG: Pt. to be I with HEP. Goal Time Frame: 4-6 Weeks Goal 2:: LTG: Pt. to have increased BLE strength increased by 5# throughout. Goal Time Frame: 4-6 Weeks Goal 3:: LTG: pt. to complete 6 MWT with distance of at least 1000' Goal Time Frame: 4-6 Weeks Goal 4:: LTG: Pt. to be able to walk throughout grocery stores without reports of fear of falling. Goal Time Frame: 4-6 Weeks Rehabilitation Potential Physical Therapy Diagnosis: Pt. has signs and symptoms consistent with debility after fall and subsequent BLE weakness, slight difficulty with balance and decreased endurance. Pt. would benefit from PT to address the above limitation progressing back to all household activities without limitations. Rehabilitation Potential: Excellent Anticipated Interventions Patient/Client Instruction: Educate patient on: Condition, Plan of Care, Risk Factors and Benefits of Fitness Program For the Purpose of:: To foster healthy habits, To improve decision making, To facilitate caregiver knowledge, To improve self management, To prevent re-injury, To improve ability to perform tasks related to life management and To improve tolerance to ADL's Therapeutic Exercise to Include: Strength training, Power training, Endurance training and Gait and locomotor training For the Purpose of:: To increase oxygenation perfusion, To improve gait and locomotor functions and To improve health of tissue Text: Thank you for the opportunity to evaluate your patient. For Medicare and Medicare HMO plans, please review the plan of care and approve it. It will need to be FAXED BACK to us at [phone] for Medicare purposes. For Medicare only, by signing this I certify the plan of care. Please let me know if there are questions or concerns regarding this plan of care. Physician Signature: Date: 09/20/24 1301 CC: PARAM Flores; Dr. Kumar Serrato MD CLS Signed Normal [facility] Basic Metabolic Profile (BMP )on 09-15-2024 BUN Normal 7-18 [facility] Comment on above: Result Comment: Canc elled via OM: Order cancelled - Patient discharged Performed By: #### L 500.2500, L100.0100 ####[facility] [address] [place], [address] BUN/CRE Normal 10-20 [facility] Comment on above: Result Comment: Canc elled via OM: Order cancelled - Patient discharged Performed By: #### L 500.2500, L100.0100 ####[facility] [address] [place], [address] CA,Total Normal 8.5-10.1 [facility] Comment on above: Result Comment: Canc elled via OM: Order cancelled - Patient discharged Performed By: #### L 500.2500, L100.0100 ####[facility] [address] [place], [address] CL Normal 98-107 [facility] Comment on above: Result Comment: Canc elled via OM: Order cancelled - Patient discharged Performed By: #### L 500.2500, L100.0100 ####[facility] [address] [place], [address] CO2 Normal 21.0-32.0 [facility] Comment on above: Result Comment: Canc elled via OM: Order cancelled - Patient discharged Performed By: #### L 500.2500, L100.0100 ####[facility] [address] [place], [address] CREAT,SERUM Normal 0.70-1.30 [facility] Comment on above: Result Comment: Canc elled via OM: Order cancelled - Patient discharged Performed By: #### L 500.2500, L100.0100 ####[facility] [address] [place], [address] EST GFR Normal >60 [facility] Comment on above: Result Comment: Canc elled via OM: Order cancelled - Patient discharged Performed By: #### L 500.2500, L100.0100 ####[facility] [address] [place], [address] EST GFR - AA Normal >60 [facility] Comment on above: Result Comment: Canc elled via OM: Order cancelled - Patient discharged Performed By: #### L 500.2500, L100.0100 ####[facility] [address] [place], [address] GAP Normal 5-15 [facility] Comment on above: Result Comment: Canc elled via OM: Order cancelled - Patient discharged Performed By: #### L 500.2500, L100.0100 ####[facility] [address] [place], [address] GLU Normal 74-106 [facility] Comment on above: Result Comment: Canc elled via OM: Order cancelled - Patient discharged Performed By: #### L 500.2500, L100.0100 ####[facility] [address] [place], [address] Potassium Normal 3.5-5.1 [facility] Comment on above: Result Comment: Canc elled via OM: Order cancelled - Patient discharged Performed By: #### L 500.2500, L100.0100 ####[facility] [address] [place], [address] Basic Metabolic Profile (BMP) Normal 136-145 [facility] Comment on above: Result Comment: Canc elled via OM: Order cancelled - Patient discharged Performed By: #### L 500.2500, L100.0100 ####[facility] [address] [place], [address] CBC W/Diff, Automatedon 02- Absolute Neut Normal 2.0-7.7 [facility] Comment on above: Result Comment: Canc elled via OM: Order cancelled - Patient discharged Performed By: #### L 500.2500, L100.0100 ####[facility] [address] [place], [address] HCT Normal 40-54 [facility] Comment on above: Result Comment: Canc elled via OM: Order cancelled - Patient discharged Performed By: #### L 500.2500, L100.0100 ####[facility] [address] [place], [address] HGB Normal 13.0-16.5 [facility] Comment on above: Result Comment: Canc elled via OM: Order cancelled - Patient discharged Performed By: #### L 500.2500, L100.0100 ####[facility] [address] [place], [address] MCH Normal 27.0-32.0 [facility] Comment on above: Result Comment: Canc elled via OM: Order cancelled - Patient discharged Performed By: #### L 500.2500, L100.0100 ####[facility] [address] [place], [address] MCHC Normal 32-36 [facility] Comment on above: Result Comment: Canc elled via OM: Order cancelled - Patient discharged Performed By: #### L 500.2500, L100.0100 ####[facility] [address] [place], [address] MCV Normal 80-94 [facility] Comment on above: Result Comment: Canc elled via OM: Order cancelled - Patient discharged Performed By: #### L 500.2500, L100.0100 ####[facility] [address] [place], [address] NEUT% Normal 47-70 [facility] Comment on above: Result Comment: Canc elled via OM: Order cancelled - Patient discharged Performed By: #### L 500.2500, L100.0100 ####[facility] [address] [place], [address] PLT Normal 150-450 [facility] Comment on above: Result Comment: Canc elled via OM: Order cancelled - Patient discharged Performed By: #### L 500.2500, L100.0100 ####[facility] [address] [place], [address] RBC Normal 4.6-6.2 [facility] Comment on above: Result Comment: Canc elled via OM: Order cancelled - Patient discharged Performed By: #### L 500.2500, L100.0100 ####[facility] [address] [place], [address] RDW CV Normal 11.6-14.6 [facility] Comment on above: Result Comment: Canc elled via OM: Order cancelled - Patient discharged Performed By: #### L 500.2500, L100.0100 ####[facility] [address] [place], [address] RDW SD Normal 35.1-43.9 [facility] Comment on above: Result Comment: Canc elled via OM: Order cancelled - Patient discharged Performed By: #### L 500.2500, L100.0100 ####[facility] [address] [place], [address] WBC Normal 4.4-11.0 [facility] Comment on above: Result Comment: Canc elled via OM: Order cancelled - Patient discharged Performed By: #### L 500.2500, L100.0100 ####[facility] [address] [place], [address] Basic Metabolic Profile (BMP )on 09-08-2024 BUN Normal 7-18 [facility] Comment on above: Result Comment: Canc elled via OM: Order cancelled - Patient discharged Performed By: #### L 100.0600 #### [facility] [address] [place], [address] BUN/CRE Normal 10-20 [facility] Comment on above: Result Comment: Canc elled via OM: Order cancelled - Patient discharged Performed By: #### L 100.0600 #### [facility] [address] [place], [address] CA,Total Normal 8.5-10.1 [facility] Comment on above: Result Comment: Canc elled via OM: Order cancelled - Patient discharged Performed By: #### L 100.0600 #### [facility] [address] [place], [address] CL Normal 98-107 [facility] Comment on above: Result Comment: Canc elled via OM: Order cancelled - Patient discharged Performed By: #### L 100.0600 #### [facility] [address] [place], [address] CO2 Normal 21.0-32.0 [facility] Comment on above: Result Comment: Canc elled via OM: Order cancelled - Patient discharged Performed By: #### L 100.0600 #### [facility] [address] [place], [address] CREAT,SERUM Normal 0.70-1.30 [facility] Comment on above: Result Comment: Canc elled via OM: Order cancelled - Patient discharged Performed By: #### L 100.0600 #### [facility] [address] [place], [address] EST GFR Normal >60 [facility] Comment on above: Result Comment: Canc elled via OM: Order cancelled - Patient discharged Performed By: #### L 100.0600 #### [facility] [address] [place], [address] EST GFR - AA Normal >60 [facility] Comment on above: Result Comment: Canc elled via OM: Order cancelled - Patient discharged Performed By: #### L 100.0600 #### [facility] [address] [place], [address] GAP Normal 5-15 [facility] Comment on above: Result Comment: Canc elled via OM: Order cancelled - Patient discharged Performed By: #### L 100.0600 #### [facility] [address] [place], [address] GLU Normal 74-106 [facility] Comment on above: Result Comment: Canc elled via OM: Order cancelled - Patient discharged Performed By: #### L 100.0600 #### [facility] [address] [place], [address] Potassium Normal 3.5-5.1 [facility] Comment on above: Result Comment: Canc elled via OM: Order cancelled - Patient discharged Performed By: #### L 100.0600 #### [facility] [address] [place], [address] Basic Metabolic Profile (BMP) Normal 136-145 [facility] Comment on above: Result Comment: Canc elled via OM: Order cancelled - Patient discharged Performed By: #### L 100.0600 #### [facility] [address] [place], [address] CBC W/Diff, Automatedon 02-0 Absolute Neut Normal 2.0-7.7 [facility] Comment on above: Result Comment: Canc elled via OM: Order cancelled - Patient discharged Performed By: #### L 100.0600 #### [facility] [address] [place], [address] HCT Normal 40-54 [facility] Comment on above: Result Comment: Canc elled via OM: Order cancelled - Patient discharged Performed By: #### L 100.0600 #### [facility] [address] [place], [address] HGB Normal 13.0-16.5 [facility] Comment on above: Result Comment: Canc elled via OM: Order cancelled - Patient discharged Performed By: #### L 100.0600 #### [facility] [address] [place], [address] MCH Normal 27.0-32.0 [facility] Comment on above: Result Comment: Canc elled via OM: Order cancelled - Patient discharged Performed By: #### L 100.0600 #### [facility] [address] [place], [address] MCHC Normal 32-36 [facility] Comment on above: Result Comment: Canc elled via OM: Order cancelled - Patient discharged Performed By: #### L 100.0600 #### [facility] [address] [place], [address] MCV Normal 80-94 [facility] Comment on above: Result Comment: Canc elled via OM: Order cancelled - Patient discharged Performed By: #### L 100.0600 #### [facility] [address] [place], [address] NEUT% Normal 47-70 [facility] Comment on above: Result Comment: Canc elled via OM: Order cancelled - Patient discharged Performed By: #### L 100.0600 #### [facility] [address] [place], [address] PLT Normal 150-450 [facility] Comment on above: Result Comment: Canc elled via OM: Order cancelled - Patient discharged Performed By: #### L 100.0600 #### [facility] [address] [place], [address] RBC Normal 4.6-6.2 [facility] Comment on above: Result Comment: Canc elled via OM: Order cancelled - Patient discharged Performed By: #### L 100.0600 #### [facility] [address] [place], [address] RDW CV Normal 11.6-14.6 [facility] Comment on above: Result Comment: Canc elled via OM: Order cancelled - Patient discharged Performed By: #### L 100.0600 #### [facility] [address] [place], [address] RDW SD Normal 35.1-43.9 [facility] Comment on above: Result Comment: Canc elled via OM: Order cancelled - Patient discharged Performed By: #### L 100.0600 #### [facility] [address] [place], [address] WBC Normal 4.4-11.0 [facility] Comment on above: Result Comment: Canc elled via OM: Order cancelled - Patient discharged Performed By: #### L 100.0600 #### [facility] [address] [place], [address] EGD Reporton 09-04-2024 EGD Report [facility] Medical Records Department [address] [place] [address] EGD Report MR#: [id number] Acct: [id number] Name: SALVADOR GLASS Jr. Rep #: [id number] : 1940 84 From: Walter Gallegos DO PCP: PARAM Eduardo Status:REG [facility] [place] [facility] Patient Name: Salvador Glass Procedure Date: 09/04/2024 4:05 PM Date of : 1940 Age: 84 Procedure: Upper GI endoscopy Indications: Iron deficiency anemia, Cirrhosis with suspected esophageal varices Providers: Walter Gallegos DO Medicines: Monitored Anesthesia Care Patient Profile: This is an 84 year old male. Refer to note in patient chart for documentation of history and physical. Patient has symptoms of acute dyspepsia. His most recent EGD for treatment of bleeding. Complications: No immediate complications. Procedure: Pre-Anesthesia Assessment: - Prior to the procedure, a History and Physical was performed, and patient medications and allergies were reviewed. The patient is competent. The risks and benefits of the procedure and the sedation options and risks were discussed with the patient. All questions were answered and informed consent was obtained. Patient identification and proposed procedure were verified by the physician in the pre-procedure area. Mental Status Examination: alert and oriented. Airway Examination: normal oropharyngeal airway and neck mobility. Respiratory Examination: clear to auscultation. CV Examination: normal. Prophylactic Antibiotics: The patient does not require prophylactic antibiotics. Prior Anticoagulants: The patient has taken no anticoagulant or antiplatelet agents except for NSAID medication. ASA Grade Assessment: II - A patient with mild systemic disease. After reviewing the risks and benefits, the patient was deemed in satisfactory condition to undergo the procedure. The anesthesia plan was to use monitored anesthesia care (MAC). Immediately prior to administration of medications, the patient was re-assessed for adequacy to receive sedatives. The heart rate, respiratory rate, oxygen saturations, blood pressure, adequacy of pulmonary ventilation, and response to care were monitored throughout the procedure. The physical status of the patient was re-assessed after the procedure. After obtaining informed consent, the endoscope was passed under direct vision. Throughout the procedure, the patient's blood pressure, pulse, and oxygen saturations were monitored continuously. The Endoscope was introduced through the mouth, and advanced to the second part of duodenum. The upper GI endoscopy was accomplished without difficulty. The patient tolerated the procedure well. Scope In: 4:12:32 PM Scope Out: 4:14:45 PM Total Procedure Duration Time 0 hours 2 minutes 13 seconds Findings: There were esophageal mucosal changes suspicious for Espinosa's esophagus present in the lower third of the esophagus. The maximum longitudinal extent of these mucosal changes was 3 cm in length. Mild portal hypertensive gastropathy was found in the cardia and in the gastric fundus. One non-bleeding linear gastric ulcer with no stigmata of bleeding was found in the gastric antrum. The lesion was 6 mm in largest dimension. Biopsies were taken with a cold forceps for histology. Verification of patient identification for the specimen was done. Estimated blood loss was minimal. Biopsies were taken with a cold forceps for Helicobacter pylori testing. Verification of patient identification for the specimen was done. Estimated blood loss was minimal. The second portion of the duodenum was normal. 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 - Portal hypertensive gastropathy. - Non-bleeding gastric ulcer with no stigmata of bleeding. Biopsied. - Normal second portion of the duodenum. Recommendation: - Discharge patient to home. - Resume previous diet. - Repeat upper endoscopy in 4 months for surveillance. - Use Protonix (pantoprazole) 40 mg PO BID for 3 months. - Continue present medications. Procedure Code(s): --- Professional --- 04357, Esophagogastroduodenosc opy, flexible, transoral; with biopsy, single or multiple CPT copyright 2021 [employer]. All rights reserved. The codes documented in this report are preliminary and upon medical record coder review may be revised to meet current compliance requirements. Walter Gallegos DO 09/04/2024 4:19:25 PM This report has been signed electronically. Number of Addenda: 0 Note Initiated On: 09/04/2024 4:05 PM 09/04/24 1619 Date Walter Gallegos DO Cosigner Signature: Date (if indicated) CC: PARAM Flores; Walter Gallegos DO Date Dictated: 09/04/24 4123 Date Transcribed: (more content not included)... Normal [facility] H Pylori (initial)on 025 H Pylori (initial) --- Patient Age/Sex Location Account Attending Physician MARIA LUISASALVADOR WISAM Levi 84/M EN [id number] Walter Gallegos DO Specimen: [id number] Received: 09/05/24 Status: GONZALO Rhodes Num: [id number] Spec Type: IMMUNO Subm Dr: Walter Gallegos DO PHYSICIAN INSTITUTION [place] [address] SPECIMEN INFORMATION: Tissue Source: Gastric ulcer biopsy Clinical Info: Anemia, cirrhosis Specimen Number: [id number] CPT code: 51441 METHODOLOGY: Deparaffinized sections of prefer/formalin-fixed tissue or PAP/DQ stained slides are incubated with monoclonal/polyclonal antibodies/oligonucleot luis miguel probes. Localization is made via biotin free immunoperoxidase method. Appropriate controls are performed and reacted as expected. Results on target cell population are indicated in the following table: RESULTS: ANTIBODY / CLONE RESULT H Pylori (polyclonal) negative These tests were developed and their performance characteristics determined by [facility]. They may not have been cleared or approved by the U.S. Food and Drug Administration. The FDA has determined that such clearance or approval is not necessary. The above immunohistochemical/lei Shavon markers are ordered and reviewed by the Pathologist. INTERPRETATION: Gastric ulcer, biopsy: Negative for Helicobacter pylori organisms. 09/06/2024 Signed (signature on file) Dr. Elder Khan MD 09/06/24 1153 Normal [facility] Comment on above: Performed By: #### P H.PYLORI ####[facility] [address] [facility] 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 Status:REG SDC Y Race: C Location: [place] [address] Anesthesia: Postop Eval I Current Vital Signs Temperature: 98.8 F Pulse Rate: 53 Blood Pressure: 135/62 Respiratory Rate: 16 Pulse Ox: 99 Assessment Airway patent: Yes Spontaneous unlabored respirations: Yes nausea: No Vomiting: No Anesthesia Complication: No Fluid Hydration Crystalloid volume administer (ml): 10 Total IV fluid infused: 100 Progress Note Anesthesia document: Postop Eval 1 completed: Yes 09/04/24 1650 Date Alireza Garcia MD Cosigner Signature: Date CC: Signed Normal [facility] [id number] 09-04-2024 MR/POSTOPAN2 [facility] Medical Records Department [address] [place] [address] Anesthesia Postop Eval II 09/04/24 1650 MR#: [id number] Acct: [id number] Name: SALVADOR GLASS Jr. Rep #: [id number] : 1940 84 From: Alireza Garcia MD PCP: PARAM Eduardo Status:REG SDC Y Race: C Location: [address] Anesthesia Postop Eval I Sum Postop Eval Completion status Anesthesia document: Postop Eval 1 completed: Yes Anesthesia Postop Eval I Summary Anesthesia Postop Eval I Summary: Anesthesia Postop Eval I: Assessment Summary Airway patent Yes 09/04/24 16:50 Spontaneous unlabored Yes 09/04/24 16:50 respirations Mental status nausea No 09/04/24 16:50 Vomiting No 09/04/24 16:50 Anesthesia Postop Eval I: Fluid Summary Crystalloid volume administer 10 09/04/24 16:50 (ml) Colloids volume administered ( ml) Blood Product volume administered (ml) Total IV fluid infused 100 09/04/24 16:50 Anesthesia Postop Eval I: Summary Notes Anesthesia Complication No 09/04/24 16:50 Anesthesia Complication Comment: Post-operative progress note Anesthesia: Postop Eval II Evaluation Mental status: Awake Pain Level: 0 nausea: No Vomiting: No 09/04/24 165 Date [facility]ireza [facility] Signature: Date CC: Signed Normal [facility] Special Stain Group Ion 02-0 Special Stain Group I ----- Patient Age/Sex Location Account Attending Physician SALVADOR GLASS Jr. 84/M EN [id number] Walter Gallegos DO Specimen: [id number] Received: 09/05/24 Status: GONZALO Carmelo Num: [id number] Spec Type: Gastric Bx Subm Dr: Walter Gallegos DO HEADER OPERATION: EGD with biopsy PRE-OP DIAGNOSIS: Anemia, cirrhosis TISSUE SUBMITTED: Gastric ulcer biopsy MICROSCOPIC DIAGNOSIS Gastric ulcer, biopsy: Mild gastritis. See microscopic description and comment. 09/06/2024 COMMENT The results of immunohistochemistry for Helicobacter pylori will be reported separately ([id number]). Alcian blue/PAS stain with matched control is used in the evaluation of the specimen. MICROSCOPIC DESCRIPTION Slides are reviewed. The specimen shows fragments of gastric mucosa with chronic inflammatory cell infiltrates in the lamina propria consisting of lymphocytes and plasma cells, consistent with mild chronic gastritis. 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 GROSS DESCRIPTION Received in fixative is one container labeled with the patient's name and designated Gastric ulcer biopsy. The specimen consists of one irregular fragment of light haskins soft tissue that measures 0.5 x 0.2 x 0.1 cm. The specimen is totally submitted in one cassette. MS/mr 09/05/2024 TC:3 CPT:46121,73317 Patient Age/Sex Location Account Attending Physician SALVADOR GLASS Jr. 84/M EN [id number] Walter Gallegos DO Signed (signature on file) Dr. Elder Khan MD 09/06/24 1146 Normal [facility] Comment on above: Performed By: #### P SSI ####[facility] [address] [place], [address] HH, Hemoglobin AND Hematocri ton 09-02-2024 Hematocrit (Bld) [Volume fraction] 26.4 % Low 40-54 [facility] Comment on above: Performed By: #### L 100.0600 ####[facility] [address] [place], [address] Hemoglobin (Bld) [Mass/Vol] 8.5 g/dL Low 13.0-16.5 [facility] Comment on above: Performed By: #### L 100.0600 ####[facility] [address] [place], [address] Basic Metabolic Profile (BMP )on 09-01-2024 BUN/CRE 22.4 RATIO High 10-20 [facility] Comment on above: Performed By: #### L 100.0100, L500.2500 ####[facility] [address] [place], [address] CA,Total 8.7 mg/dL Normal 8.5-10.1 [facility] Comment on above: Performed By: #### L 100.0100, L500.2500 ####[facility] [address] [place], [address] Chloride [Moles/Vol] 100 mmol/L Normal 98-107 [facility] Comment on above: Performed By: #### L 100.0100, L500.2500 ####[facility] [address] [place], [address] CO2 [Moles/Vol] 25.0 mmol/L Normal 21.0-32.0 [facility] Comment on above: Performed By: #### L 100.0100, L500.2500 ####[facility] [address] [place], [address] Creatinine [Mass/Vol] 0.71 mg/dL Normal 0.70-1.30 [facility] Comment on above: Result Comment: The validity of the calculated GFR GFRAA in patients over 70 years has not been determined. Clinical correlation is essential. Performed By: #### L 100.0100, L500.2500 ####[facility] [address] [place], [address] ECRCL 75.82 ml/min Normal [facility] Comment on above: Performed By: #### L 100.0100, L500.2500 ####[facility] [address] [place], [address] EST GFR - AA 136 mL/min Normal >60 [facility] Comment on above: Result Comment: Afri can [place] GFR Calc Performed By: #### L 100.0100, L500.2500 ####[facility] [address] [place], [address] GAP 6 Normal 5-15 [facility] Comment on above: Performed By: #### L 100.0100, L500.2500 ####[facility] [address] [place], [address] GFR/1.73 sq M.predicted among non-blacks MDRD (S/P/Bld) [Vol rate/Area] 112 mL/min/{1.73_m2} Normal >60 [facility] Comment on above: Result Comment: Non- GFR Calc Performed By: #### L 100.0100, L500.2500 ####[facility] [address] [place], [address] Glucose [Mass/Vol] 91 mg/dL Normal 74-106 [facility] Comment on above: Performed By: #### L 100.0100, L500.2500 ####[facility] [address] [place], [address] Potassium [Moles/Vol] 4.0 mmol/L Normal 3.5-5.1 [facility] Comment on above: Performed By: #### L 100.0100, L500.2500 ####[facility] [address] [place], [address] Sodium [Moles/Vol] 132 mmol/L Low 136-145 [facility] Comment on above: Performed By: #### L 100.0100, L500.2500 ####[facility] [address] [place], [address] Urea nitrogen [Mass/Vol] 16 mg/dL Normal 7-18 [facility] Comment on above: Performed By: #### L 100.0100, L500.2500 ####[facility] [address] [place], [address] CBC W/Diff, Automatedon 01-3 -2024 Absolute Lymph 0.51 X10 3/uL Low 0.83-4.51 [facility] Comment on above: Performed By: #### L 100.0100, L500.2500 ####[facility] [address] [place], [address] Absolute Neut 1.5 X10 3/uL Low 2.0-7.7 [facility] Comment on above: Performed By: #### L 100.0100, L500.2500 ####[facility] [address] [place], [address] Basophils/100 WBC (Bld) 1.3 % High 0-1 [facility] Comment on above: Performed By: #### L 100.0100, L500.2500 ####[facility] [address] [place], [address] Eosinophils/100 WBC (Bld) 2.5 % Normal 0-5 [facility] Comment on above: Performed By: #### L 100.0100, L500.2500 ####[facility] [address] [place], [address] Erythrocyte distribution width (RBC) [Ratio] 19.4 % High 11.6-14.6 [facility] Comment on above: Performed By: #### L 100.0100, L500.2500 ####[facility] [address] [place], [address] Hematocrit (Bld) [Volume fraction] 26.4 % Low 40-54 [facility] Comment on above: Performed By: #### L 100.0100, L500.2500 ####[facility] [address] [place], [address] Hemoglobin (Bld) [Mass/Vol] 8.2 g/dL Low 13.0-16.5 [facility] Comment on above: Performed By: #### L 100.0100, L500.2500 ####[facility] [address] [place], [address] IG% 0.400 Normal 0.0-0.9 [facility] Comment on above: Result Comment: IG% - Immature Granulocytes (promyelocytes, myelocytes and metamyelocytes) > 1% indicates that a LEFT SHIFT is Present. Performed By: #### L 100.0100, L500.2500 ####[facility] [address] [place], [address] Lymphocytes/100 WBC (Bld) 21.3 % Normal 19-41 [facility] Comment on above: Performed By: #### L 100.0100, L500.2500 ####[facility] [address] [place], [address] MCH (RBC) [Entitic mass] 25.4 pg Low 27.0-32.0 [facility] Comment on above: Performed By: #### L 100.0100, L500.2500 ####[facility] [address] [place], [address] MCHC (RBC) [Mass/Vol] 31.1 g/dL Low 32-36 [facility] Comment on above: Performed By: #### L 100.0100, L500.2500 ####[facility] [address] [place], [address] MCV (RBC) [Entitic vol] 81.7 fL Normal 80-94 [facility] Comment on above: Performed By: #### L 100.0100, L500.2500 ####[facility] [address] [place], [address] Monocytes/100 WBC (Bld) 14.2 % High 0-10 [facility] Comment on above: Performed By: #### L 100.0100, L500.2500 ####[facility] [address] [place], [address] Neutrophils/100 WBC (Bld) 60.3 % Normal 47-70 [facility] Comment on above: Performed By: #### L 100.0100, L500.2500 ####[facility] [address] [place], [address] Nucleated RBC (Bld) [#/Vol] 0 10*3/uL Normal 0-5 [facility] Comment on above: Performed By: #### L 100.0100, L500.2500 ####[facility] [address] [place], [address] Platelet mean volume (Bld) [Entitic vol] 9.2 fL Normal 6.2-12.0 [facility] Comment on above: Performed By: #### L 100.0100, L500.2500 ####[facility] [address] [place], [address] Platelets (Bld) [#/Vol] 226 10*3/uL Normal 150-450 [facility] Comment on above: Performed By: #### L 100.0100, L500.2500 ####[facility] [address] [place], [address] RBC (Bld) [#/Vol] 3.23 10*6/uL Low 4.6-6.2 [facility] Comment on above: Performed By: #### L 100.0100, L500.2500 ####[facility] [address] [place], [address] RDW SD 58.2 fl High 35.1-43.9 [facility] Comment on above: Performed By: #### L 100.0100, L500.2500 ####[facility] [address] [place], [address] WBC (Bld) [#/Vol] 2.4 10*3/uL Low 4.4-11.0 [facility] Comment on above: Performed By: #### L 100.0100, L500.2500 ####[facility] [address] [place], [address] Stool Occult Blood iFOBon STOB Positive Normal [facility] Comment on above: Performed By: #### M 100.7900 ####[facility] [address] [place], [address] Basic Metabolic Profile (BMP )on 08-30-2024 BUN/CRE 16.3 RATIO Normal 10-20 [facility] Comment on above: Performed By: #### L 100.0600 #### [facility] [address] [place], [address] CA,Total 8.7 mg/dL Normal 8.5-10.1 [facility] Comment on above: Performed By: #### L 100.0600 #### [facility] [address] [place], [address] Chloride [Moles/Vol] 98 mmol/L Normal 98-107 [facility] Comment on above: Performed By: #### L 100.0600 #### [facility] [address] [place], [address] CO2 [Moles/Vol] 24.0 mmol/L Normal 21.0-32.0 [facility] Comment on above: Performed By: #### L 100.0600 #### [facility] [address] [place], [address] Creatinine [Mass/Vol] 0.74 mg/dL Normal 0.70-1.30 [facility] Comment on above: Result Comment: The validity of the calculated GFR GFRAA in patients over 70 years has not been determined. Clinical correlation is essential. Performed By: #### L 100.0600 #### [facility] [address] [place], [address] ECRCL 75.82 ml/min Normal [facility] Comment on above: Performed By: #### L 100.0600 #### [facility] [address] [place], [address] EST GFR - AA 131 mL/min Normal >60 [facility] Comment on above: Result Comment: Afri can [place] GFR Calc Performed By: #### L 100.0600 #### [facility] [address] [place], [address] GAP 7 Normal 5-15 [facility] Comment on above: Performed By: #### L 100.0600 #### [facility] [address] [place], [address] GFR/1.73 sq M.predicted among non-blacks MDRD (S/P/Bld) [Vol rate/Area] 108 mL/min/{1.73_m2} Normal >60 [facility] Comment on above: Result Comment: Non- GFR Calc Performed By: #### L 100.0600 #### [facility] [address] [place], [address] Glucose [Mass/Vol] 95 mg/dL Normal 74-106 [facility] Comment on above: Performed By: #### L 100.0600 #### [facility] [address] [place], [address] Potassium [Moles/Vol] 4.0 mmol/L Normal 3.5-5.1 [facility] Comment on above: Performed By: #### L 100.0600 #### [facility] [address] [place], [address] Sodium [Moles/Vol] 129 mmol/L Low 136-145 [facility] Comment on above: Performed By: #### L 100.0600 #### [facility] [address] [place], [address] Urea nitrogen [Mass/Vol] 12 mg/dL Normal 7-18 [facility] Comment on above: Performed By: #### L 100.0600 #### [facility] [address] [place], [address] HH, Hemoglobin AND Hematocri ton 08-29-2024 Hematocrit (Bld) [Volume fraction] 30.7 % Low 40-54 [facility] Comment on above: Performed By: #### L 100.0600 ####[facility] [address] [place], [address] Hemoglobin (Bld) [Mass/Vol] 9.3 g/dL Low 13.0-16.5 [facility] Comment on above: Performed By: #### L 100.0600 ####[facility] [address] [place], [address] Basic Metabolic Profile (BMP )on 08-28-2024 BUN/CRE 18.5 RATIO Normal 10-20 [facility] Comment on above: Performed By: #### L 100.0600 #### [facility] [address] [place], [address] CA,Total 8.8 mg/dL Normal 8.5-10.1 [facility] Comment on above: Performed By: #### L 100.0600 #### [facility] [address] [place], [address] Chloride [Moles/Vol] 98 mmol/L Normal 98-107 [facility] Comment on above: Performed By: #### L 100.0600 #### [facility] [address] [place], [address] CO2 [Moles/Vol] 24.0 mmol/L Normal 21.0-32.0 [facility] Comment on above: Performed By: #### L 100.0600 #### [facility] [address] [place], [address] Creatinine [Mass/Vol] 0.65 mg/dL Low 0.70-1.30 [facility] Comment on above: Result Comment: The validity of the calculated GFR GFRAA in patients over 70 years has not been determined. Clinical correlation is essential. Performed By: #### L 100.0600 #### [facility] [address] [place], [address] ECRCL 75.82 ml/min Normal [facility] Comment on above: Performed By: #### L 100.0600 #### [facility] [address] [place], [address] EST GFR - AA 151 mL/min Normal >60 [facility] Comment on above: Result Comment: Afri can [place] GFR Calc Performed By: #### L 100.0600 #### [facility] [address] [place], [address] GAP 6 Normal 5-15 [facility] Comment on above: Performed By: #### L 100.0600 #### [facility] [address] [place], [address] GFR/1.73 sq M.predicted among non-blacks MDRD (S/P/Bld) [Vol rate/Area] 125 mL/min/{1.73_m2} Normal >60 [facility] Comment on above: Result Comment: Non- GFR Calc Performed By: #### L 100.0600 #### [facility] [address] [place], [address] Glucose [Mass/Vol] 93 mg/dL Normal 74-106 [facility] Comment on above: Performed By: #### L 100.0600 #### [facility] [address] [place], [address] Potassium [Moles/Vol] 4.1 mmol/L Normal 3.5-5.1 [facility] Comment on above: Performed By: #### L 100.0600 #### [facility] [address] [place], [address] Sodium [Moles/Vol] 129 mmol/L Low 136-145 [facility] Comment on above: Performed By: #### L 100.0600 #### [facility] [address] [place], [address] Urea nitrogen [Mass/Vol] 12 mg/dL Normal 7-18 [facility] Comment on above: Performed By: #### L 100.0600 #### [facility] [address] [place], [address] HH, Hemoglobin AND Hematocri ton 08-28-2024 Hematocrit (Bld) [Volume fraction] 26.9 % Low 40-54 [facility] Comment on above: Performed By: #### L 100.0600 #### [facility] [address] [place], [address] Hemoglobin (Bld) [Mass/Vol] 8.3 g/dL Low 13.0-16.5 [facility] Comment on above: Performed By: #### L 100.0600 #### [facility] [address] [place], [address] Basic Metabolic Profile (BMP )on 08-27-2024 BUN/CRE 16.5 RATIO Normal 10-20 [facility] Comment on above: Performed By: #### L 500.2500 ####[facility] [address] [place], [address] CA,Total 9.0 mg/dL Normal 8.5-10.1 [facility] Comment on above: Performed By: #### L 500.2500 ####[facility] [address] [place], [address] Chloride [Moles/Vol] 98 mmol/L Normal 98-107 [facility] Comment on above: Performed By: #### L 500.2500 ####[facility] [address] [place], [address] CO2 [Moles/Vol] 25.0 mmol/L Normal 21.0-32.0 [facility] Comment on above: Performed By: #### L 500.2500 ####[facility] [address] [place], [address] Creatinine [Mass/Vol] 0.66 mg/dL Low 0.70-1.30 [facility] Comment on above: Result Comment: The validity of the calculated GFR GFRAA in patients over 70 years has not been determined. Clinical correlation is essential. Performed By: #### L 500.2500 ####[facility] [address] [place], [address] ECRCL 75.82 ml/min Normal [facility] Comment on above: Performed By: #### L 500.2500 ####[facility] [address] [place], [address] EST GFR - AA 147 mL/min Normal >60 [facility] Comment on above: Result Comment: Afri can [place] GFR Calc Performed By: #### L 500.2500 ####[facility] [address] [place], [address] GAP 7 Normal 5-15 [facility] Comment on above: Performed By: #### L 500.2500 ####[facility] [address] [place], [address] GFR/1.73 sq M.predicted among non-blacks MDRD (S/P/Bld) [Vol rate/Area] 122 mL/min/{1.73_m2} Normal >60 [facility] Comment on above: Result Comment: Non- GFR Calc Performed By: #### L 500.2500 ####[facility] [address] [place], [address] Glucose [Mass/Vol] 97 mg/dL Normal 74-106 [facility] Comment on above: Performed By: #### L 500.2500 ####[facility] [address] [place], [address] Potassium [Moles/Vol] 3.9 mmol/L Normal 3.5-5.1 [facility] Comment on above: Performed By: #### L 500.2500 ####[facility] [address] [place], [address] Sodium [Moles/Vol] 129 mmol/L Low 136-145 [facility] Comment on above: Performed By: #### L 500.2500 ####[facility] [address] [place], [address] Urea nitrogen [Mass/Vol] 11 mg/dL Normal 7-18 [facility] Comment on above: Performed By: #### L 500.2500 ####[facility] [address] [place], [address] HH, Hemoglobin AND Hematocri ton 08-27-2024 Hematocrit (Bld) [Volume fraction] 26.2 % Low 40-54 [facility] Comment on above: Performed By: #### L 100.0600 #### [facility] [address] [place], [address] Hemoglobin (Bld) [Mass/Vol] 8.5 g/dL Low 13.0-16.5 [facility] Comment on above: Performed By: #### L 100.0600 #### [facility] [address] [place], [address] Basic Metabolic Profile (BMP )on 08-26-2024 BUN/CRE 16.8 RATIO Normal 10-20 [facility] Comment on above: Performed By: #### L 100.0600 #### [facility] [address] [place], [address] CA,Total 8.7 mg/dL Normal 8.5-10.1 [facility] Comment on above: Performed By: #### L 100.0600 #### [facility] [address] [place], [address] Chloride [Moles/Vol] 96 mmol/L Low 98-107 [facility] Comment on above: Performed By: #### L 100.0600 #### [facility] [address] [place], [address] CO2 [Moles/Vol] 24.0 mmol/L Normal 21.0-32.0 [facility] Comment on above: Performed By: #### L 100.0600 #### [facility] [address] [place], [address] Creatinine [Mass/Vol] 0.65 mg/dL Low 0.70-1.30 [facility] Comment on above: Result Comment: The validity of the calculated GFR GFRAA in patients over 70 years has not been determined. Clinical correlation is essential. Performed By: #### L 100.0600 #### [facility] [address] [place], [address] ECRCL 75.82 ml/min Normal [facility] Comment on above: Performed By: #### L 100.0600 #### [facility] [address] [place], [address] EST GFR - AA 150 mL/min Normal >60 [facility] Comment on above: Result Comment: Afri can S[place] GFR Calc Performed By: #### L 100.0600 #### [facility] [address] [place], [address] GAP 8 Normal 5-15 [facility] Comment on above: Performed By: #### L 100.0600 #### [facility] [address] [place], [address] GFR/1.73 sq M.predicted among non-blacks MDRD (S/P/Bld) [Vol rate/Area] 124 mL/min/{1.73_m2} Normal >60 [facility] Comment on above: Result Comment: Non- GFR Calc Performed By: #### L 100.0600 #### [facility] [address] [place], [address] Glucose [Mass/Vol] 101 mg/dL Normal 74-106 [facility] Comment on above: Result Comment: Fast ing Glucose result from 100 to 125 mg/dL suggests IMPAIRED HOMEOSTASIS per A.D.A. criteria. Performed By: #### L 100.0600 #### [facility] [address] [place], [address] Potassium [Moles/Vol] 4.0 mmol/L Normal 3.5-5.1 [facility] Comment on above: Performed By: #### L 100.0600 #### [facility] [address] [place], [address] Sodium [Moles/Vol] 128 mmol/L Low 136-145 [facility] Comment on above: Performed By: #### L 100.0600 #### [facility] [address] [place], [address] Urea nitrogen [Mass/Vol] 11 mg/dL Normal 7-18 [facility] Comment on above: Performed By: #### L 100.0600 #### [facility] [address] [place], [address] HH, Hemoglobin AND Hematocri ton 08-26-2024 Hematocrit (Bld) [Volume fraction] 26.9 % Low 40-54 [facility] Comment on above: Performed By: #### L 100.0600 #### [facility] [address] [place], [address] Hemoglobin (Bld) [Mass/Vol] 8.3 g/dL Low 13.0-16.5 [facility] Comment on above: Performed By: #### L 100.0600 #### [facility] [address] [place], [address] Basic Metabolic Profile (BMP )on 08-25-2024 BUN/CRE 14.6 RATIO Normal 10-20 [facility] Comment on above: Performed By: #### L 100.0100, L500.2500 #### [facility] [address] [place], [address] CA,Total 9.0 mg/dL Normal 8.5-10.1 [facility] Comment on above: Performed By: #### L 100.0100, L500.2500 #### [facility] [address] [place], [address] Chloride [Moles/Vol] 98 mmol/L Normal 98-107 [facility] Comment on above: Performed By: #### L 100.0100, L500.2500 #### [facility] [address] [place], [address] CO2 [Moles/Vol] 27.0 mmol/L Normal 21.0-32.0 [facility] Comment on above: Performed By: #### L 100.0100, L500.2500 #### [facility] [address] [place], [address] Creatinine [Mass/Vol] 0.68 mg/dL Low 0.70-1.30 [facility] Comment on above: Result Comment: The validity of the calculated GFR GFRAA in patients over 70 years has not been determined. Clinical correlation is essential. Performed By: #### L 100.0100, L500.2500 #### [facility] [address] [place], [address] ECRCL 75.82 ml/min Normal [facility] Comment on above: Performed By: #### L 100.0100, L500.2500 #### [facility] [address] [place], [address] EST GFR - AA 143 mL/min Normal >60 [facility] Comment on above: Result Comment: Afri can [place] GFR Calc Performed By: #### L 100.0100, L500.2500 #### [facility] [address] [place], [address] GAP 5 Normal 5-15 [facility] Comment on above: Performed By: #### L 100.0100, L500.2500 #### [facility] [address] [place], [address] GFR/1.73 sq M.predicted among non-blacks MDRD (S/P/Bld) [Vol rate/Area] 118 mL/min/{1.73_m2} Normal >60 [facility] Comment on above: Result Comment: Non- GFR Calc Performed By: #### L 100.0100, L500.2500 #### [facility] [address] [place], [address] Glucose [Mass/Vol] 105 mg/dL Normal 74-106 [facility] Comment on above: Result Comment: Fast ing Glucose result from 100 to 125 mg/dL suggests IMPAIRED HOMEOSTASIS per A.D.A. criteria. Performed By: #### L 100.0100, L500.2500 #### [facility] [address] [place], [address] Potassium [Moles/Vol] 4.4 mmol/L Normal 3.5-5.1 [facility] Comment on above: Performed By: #### L 100.0100, L500.2500 #### [facility] [address] [place], [address] Sodium [Moles/Vol] 129 mmol/L Low 136-145 [facility] Comment on above: Performed By: #### L 100.0100, L500.2500 #### [facility] [address] [place], [address] Urea nitrogen [Mass/Vol] 10 mg/dL Normal 7-18 [facility] Comment on above: Performed By: #### L 100.0100, L500.2500 #### [facility] [address] [place], [address] CBC W/Diff, Automatedon -2 Absolute Lymph 0.47 X10 3/uL Low 0.83-4.51 [facility] Comment on above: Performed By: #### L 100.0100, L500.2500 #### [facility] [address] [place], [address] Absolute Neut 2.2 X10 3/uL Normal 2.0-7.7 [facility] Comment on above: Performed By: #### L 100.0100, L500.2500 #### [facility] [address] [place], [address] Basophils/100 WBC (Bld) 0.6 % Normal 0-1 [facility] Comment on above: Performed By: #### L 100.0100, L500.2500 #### [facility] [address] [place], [address] Eosinophils/100 WBC (Bld) 2.1 % Normal 0-5 [facility] Comment on above: Performed By: #### L 100.0100, L500.2500 #### [facility] [address] [place], [address] Erythrocyte distribution width (RBC) [Ratio] 19.5 % High 11.6-14.6 [facility] Comment on above: Performed By: #### L 100.0100, L500.2500 #### [facility] [address] [place], [address] Hematocrit (Bld) [Volume fraction] 27.1 % Low 40-54 [facility] Comment on above: Performed By: #### L 100.0100, L500.2500 #### [facility] [address] [place], [address] Hemoglobin (Bld) [Mass/Vol] 8.3 g/dL Low 13.0-16.5 [facility] Comment on above: Performed By: #### L 100.0100, L500.2500 #### [facility] [address] [place], [address] IG% 0.600 Normal 0.0-0.9 [facility] Comment on above: Result Comment: IG% - Immature Granulocytes (promyelocytes, myelocytes and metamyelocytes) > 1% indicates that a LEFT SHIFT is Present. Performed By: #### L 100.0100, L500.2500 #### [facility] [address] [place], [address] Lymphocytes/100 WBC (Bld) 14.4 % Low 19-41 [facility] Comment on above: Performed By: #### L 100.0100, L500.2500 #### [facility] [address] [place], [address] MCH (RBC) [Entitic mass] 24.5 pg Low 27.0-32.0 [facility] Comment on above: Performed By: #### L 100.0100, L500.2500 #### [facility] [address] [place], [address] MCHC (RBC) [Mass/Vol] 30.6 g/dL Low 32-36 [facility] Comment on above: Performed By: #### L 100.0100, L500.2500 #### [facility] [address] [place], [address] MCV (RBC) [Entitic vol] 79.9 fL Low 80-94 [facility] Comment on above: Performed By: #### L 100.0100, L500.2500 #### [facility] [address] [place], [address] Monocytes/100 WBC (Bld) 15.3 % High 0-10 [facility] Comment on above: Performed By: #### L 100.0100, L500.2500 #### [facility] [address] [place], [address] Neutrophils/100 WBC (Bld) 67.0 % Normal 47-70 [facility] Comment on above: Performed By: #### L 100.0100, L500.2500 #### [facility] [address] [place], [address] Nucleated RBC (Bld) [#/Vol] 0 10*3/uL Normal 0-5 [facility] Comment on above: Performed By: #### L 100.0100, L500.2500 #### [facility] [address] [place], [address] Platelet mean volume (Bld) [Entitic vol] 9.4 fL Normal 6.2-12.0 [facility] Comment on above: Performed By: #### L 100.0100, L500.2500 #### [facility] [address] [place], [address] Platelets (Bld) [#/Vol] 304 10*3/uL Normal 150-450 [facility] Comment on above: Performed By: #### L 100.0100, L500.2500 #### [facility] [address] [place], [address] RBC (Bld) [#/Vol] 3.39 10*6/uL Low 4.6-6.2 [facility] Comment on above: Performed By: #### L 100.0100, L500.2500 #### [facility] [address] [place], [address] RDW SD 56.7 fl High 35.1-43.9 [facility] Comment on above: Performed By: #### L 100.0100, L500.2500 #### [facility] [address] [place], [address] WBC (Bld) [#/Vol] 3.3 10*3/uL Low 4.4-11.0 [facility] Comment on above: Performed By: #### L 100.0100, L500.2500 #### [facility] [address] [place], [address] Osmolality, Serumon 08-25-19 25 OSMOLALITY,SER 272 mOsm/KG Low 280-301 [facility] Comment on above: Performed By: #### L 100.0600 #### [facility] [address] [place], [address] Osmolality, Urineon 08-25-19 25 OSMOLALITY,UR 547 mOsm/KG Normal [facility] Comment on above: Result Comment: Normal Urine Reference Ranges Random: 50 - 1200 mOsm/kg H20 depending on fluid intake Random: >850 mOsm/kg after 12 hour fluid restriction 24 hour: 300 - 900 mOsm/kg H2O Performed By: #### L 100.0600 #### [facility] [address] [place], [address] Urine Sodiumon 08-25-2024 Sodium (U) [Moles/Vol] 97 mmol/L Normal Not Establ. [facility] Comment on above: Performed By: #### L 100.0600 #### [facility] [address] [place], [address] HH, Hemoglobin AND Hematocri ton 08-24-2024 Hematocrit (Bld) [Volume fraction] 27.8 % Low 40-54 [facility] Comment on above: Performed By: #### L 100.0600 #### [facility] [address] [place], [address] Hemoglobin (Bld) [Mass/Vol] 8.8 g/dL Low 13.0-16.5 [facility] Comment on above: Performed By: #### L 100.0600 #### [facility] [address] [place], [address] Basic Metabolic Profile (BMP )on 08-21-2024 BUN/CRE 11.4 RATIO Normal 10-20 [facility] Comment on above: Performed By: #### L 100.0600 #### [facility] [address] [place], [address] CA,Total 8.9 mg/dL Normal 8.5-10.1 [facility] Comment on above: Performed By: #### L 100.0600 #### [facility] [address] [place], [address] Chloride [Moles/Vol] 102 mmol/L Normal 98-107 [facility] Comment on above: Performed By: #### L 100.0600 #### [facility] [address] [place], [address] CO2 [Moles/Vol] 25.0 mmol/L Normal 21.0-32.0 [facility] Comment on above: Performed By: #### L 100.0600 #### [facility] [address] [place], [address] Creatinine [Mass/Vol] 0.52 mg/dL Low 0.70-1.30 [facility] Comment on above: Result Comment: The validity of the calculated GFR GFRAA in patients over 70 years has not been determined. Clinical correlation is essential. Performed By: #### L 100.0600 #### [facility] [address] [place], [address] ECRCL 75.82 ml/min Normal [facility] Comment on above: Performed By: #### L 100.0600 #### [facility] [address] [place], [address] EST GFR - AA 193 mL/min Normal >60 [facility] Comment on above: Result Comment: Afri can [place] GFR Calc Performed By: #### L 100.0600 #### [facility] [address] [place], [address] GAP 4 Low 5-15 [facility] Comment on above: Performed By: #### L 100.0600 #### [facility] [address] [place], [address] GFR/1.73 sq M.predicted among non-blacks MDRD (S/P/Bld) [Vol rate/Area] 160 mL/min/{1.73_m2} Normal >60 [facility] Comment on above: Result Comment: Non- GFR Calc Performed By: #### L 100.0600 #### [facility] [address] [place], [address] Glucose [Mass/Vol] 111 mg/dL High 74-106 [facility] Comment on above: Result Comment: Fast ing Glucose result from 100 to 125 mg/dL suggests IMPAIRED HOMEOSTASIS per A.D.A. criteria. Performed By: #### L 100.0600 #### [facility] [address] [place], [address] Potassium [Moles/Vol] 4.1 mmol/L Normal 3.5-5.1 [facility] Comment on above: Performed By: #### L 100.0600 #### [facility] [address] [place], [address] Sodium [Moles/Vol] 130 mmol/L Low 136-145 [facility] Comment on above: Performed By: #### L 100.0600 #### [facility] [address] [place], [address] Urea nitrogen [Mass/Vol] 6 mg/dL Low 7-18 [facility] Comment on above: Performed By: #### L 100.0600 #### [facility] [address] [place], [address] CBC W/Diff, Automatedon 08-03 PATH REV Reviewed Normal [facility] Comment on above: Result Comment: Leuk openia AND ANEMIA Clinical correlation necessary. Jennifer Hopkins MD 08/21/2024 AMENDED REPORT 08/21/24 160 PATH REV previously reported as: Jenna duggan Performed By: #### L 100.0600 #### [facility] [address] [place], [address] PATH REV Reviewed Normal [facility] Comment on above: Result Comment: Leuk openia and neutropenia. Normocytic anemia. Clinical correlation necessary. Elder Khan M.D. 08/21/24 AMENDED REPORT 08/21/24 1601 PATH REV previously reported as: [place] urban Performed By: #### L 500.2500, L100.0100 #### [facility] [address] [place], [address] Vitamin D,25 Hydroxyon 08-21 Vitamin D 25-OH 43.5 ng/mL Normal [facility] Comment on above: Result Comment: Rekha min D 25(OH) Status Range Deficiency <20 ng/mL (50nmol/L) Insufficiency 20 - 30 ng/mL (50 - 75 nmol/L) Sufficiency 30 - 100 ng/mL (75 - 250 nmol/L) Toxicity >100 ng/mL (>250 nmol/L) Performed By: #### L 100.0600 #### [facility] [address] [place], [address] Comprehensive Metabolic Prof ilon 08-20-2024 Albumin [Mass/Vol] 2.8 g/dL Low 3.2-5.0 [facility] Comment on above: Performed By: #### L 100.0600 #### [facility] [address] [place], [address] Albumin/Globulin [Mass ratio] 0.8 {ratio} Low 0.9-2.4 [facility] Comment on above: Performed By: #### L 100.0600 #### [facility] [address] [place], [address] ALK P 98 U/L Normal 45-117 [facility] Comment on above: Performed By: #### L 100.0600 #### [facility] [address] [place], [address] ALT [Catalytic activity/Vol] 25 U/L Normal 16-61 [facility] Comment on above: Performed By: #### L 100.0600 #### [facility] [address] [place], [address] AST [Catalytic activity/Vol] 24 U/L Normal 15-37 [facility] Comment on above: Performed By: #### L 100.0600 #### [facility] [address] [place], [address] Bilirubin [Mass/Vol] 0.60 mg/dL Normal 0.20-1.00 [facility] Comment on above: Result Comment: For patients on eltrombopag therapy, use of Dimension Walsh TBIL is not recommended. Performed By: #### L 100.0600 #### [facility] [address] [place], [address] BUN/CRE 15.7 RATIO Normal 10-20 [facility] Comment on above: Performed By: #### L 100.0600 #### [facility] [address] [place], [address] CA,Total 8.9 mg/dL Normal 8.5-10.1 [facility] Comment on above: Performed By: #### L 100.0600 #### [facility] [address] [place], [address] Chloride [Moles/Vol] 102 mmol/L Normal 98-107 [facility] Comment on above: Performed By: #### L 100.0600 #### [facility] [address] [place], [address] CO2 [Moles/Vol] 25.0 mmol/L Normal 21.0-32.0 [facility] Comment on above: Performed By: #### L 100.0600 #### [facility] [address] [place], [address] Creatinine [Mass/Vol] 0.51 mg/dL Low 0.70-1.30 [facility] Comment on above: Result Comment: The validity of the calculated GFR GFRAA in patients over 70 years has not been determined. Clinical correlation is essential. Performed By: #### L 100.0600 #### [facility] [address] [place], [address] ECRCL 75.82 ml/min Normal [facility] Comment on above: Performed By: #### L 100.0600 #### [facility] [address] [place], [address] EST GFR - AA 200 mL/min Normal >60 [facility] Comment on above: Result Comment: Afri can [place] GFR Calc Performed By: #### L 100.0600 #### [facility] [address] [place], [address] GAP 4 Low 5-15 [facility] Comment on above: Performed By: #### L 100.0600 #### [facility] [address] [place], [address] GFR/1.73 sq M.predicted among non-blacks MDRD (S/P/Bld) [Vol rate/Area] 165 mL/min/{1.73_m2} Normal >60 [facility] Comment on above: Result Comment: Non- GFR Calc Performed By: #### L 100.0600 #### [facility] [address] [place], [address] Globulin (S) [Mass/Vol] 3.6 g/dL Normal 2.2-4.2 [facility] Comment on above: Performed By: #### L 100.0600 #### [facility] [address] [place], [address] Glucose [Mass/Vol] 114 mg/dL High 74-106 [facility] Comment on above: Result Comment: Fast ing Glucose result from 100 to 125 mg/dL suggests IMPAIRED HOMEOSTASIS per A.D.A. criteria. Performed By: #### L 100.0600 #### [facility] [address] [place], [address] Potassium [Moles/Vol] 3.6 mmol/L Normal 3.5-5.1 [facility] Comment on above: Performed By: #### L 100.0600 #### [facility] [address] [place], [address] Sodium [Moles/Vol] 130 mmol/L Low 136-145 [facility] Comment on above: Performed By: #### L 100.0600 #### [facility] [address] [place], [address] T PROT 6.4 g/dL Normal 6.4-8.2 [facility] Comment on above: Performed By: #### L 100.0600 #### [facility] [address] [place], [address] Urea nitrogen [Mass/Vol] 8 mg/dL Normal 7-18 [facility] Comment on above: Performed By: #### L 100.0600 #### [facility] [address] [place], [address] HH, Hemoglobin AND Hematocr iton 08-20-2024 HCT Normal 40-54 [facility] Comment on above: Result Comment: @OK TO CANCEL PER KEV,RN TCU Performed By: #### L 100.0600 #### [facility] [address] [place], [address] HGB Normal 13.0-16.5 [facility] Comment on above: Result Comment: @OK TO CANCEL PER KEV,RN TCU Performed By: #### L 100.0600 #### [facility] [address] [place], [address] Magnesiumon 08-20-2024 Magnesium [Mass/Vol] 1.9 mg/dL Normal 1.6-2.6 [facility] Comment on above: Performed By: #### L 100.0600 #### [facility] [address] [place], [address] Phosphoruson 08-20-2024 Phosphate [Mass/Vol] 1.8 mg/dL Low 2.5-4.9 [facility] Comment on above: Performed By: #### L 100.0600 #### [facility] [address] [place], [address] Abdomen Single Viewon 2024 Abdomen Single View [facility] Imaging Services [address] [address] Abdomen Single View MR#: [id number] Acct: [id number] Name: SALVADOR GLASS Jr. Rep #: [id number] : 1940 M 84 From: Sidney Montgomery DO PCP: PARAM Eduardo Status: ADM IN Study: Abdomen Single View Date of Exam: 08/19/24 Exam# [id number] Ordering [place]: [place] [id number] STUDY: X-RAY - ABDOMEN/PELVIS REASON FOR EXAM: Male, 84 years old. Constipation TECHNIQUE: Frontal views COMPARISON: None. FINDINGS: Right pleural effusion. Gaseous distended bowel loops diffusely may be due to an ileus. There is no demonstrated free abdominal air. Normal soft tissue structures. Normal visualized osseous structures. RAD/Abdomen Single View IMPRESSION: Right pleural effusion. Probable ileus. No significant fecal retention. Electronically Signed: Sidney Montgomery DO at 19:24 EST , CC: PARAM Flores; Dr. Kumar Serrato MD Graduate Internship: Signed Normal [facility] Basic Metabolic Profile (BMP )on 08-19-2024 BUN/CRE 22.7 RATIO High 10-20 [facility] Comment on above: Performed By: #### L 500.2500, L100.0100 #### [facility] [address] [place], [address] CA,Total 8.7 mg/dL Normal 8.5-10.1 [facility] Comment on above: Performed By: #### L 500.2500, L100.0100 #### [facility] [address] [place], [address] Chloride [Moles/Vol] 100 mmol/L Normal 98-107 [facility] Comment on above: Performed By: #### L 500.2500, L100.0100 #### [facility] [address] [place], [address] CO2 [Moles/Vol] 23.0 mmol/L Normal 21.0-32.0 [facility] Comment on above: Performed By: #### L 500.2500, L100.0100 #### [facility] [address] [place], [address] Creatinine [Mass/Vol] 0.48 mg/dL Low 0.70-1.30 [facility] Comment on above: Result Comment: The validity of the calculated GFR GFRAA in patients over 70 years has not been determined. Clinical correlation is essential. Performed By: #### L 500.2500, L100.0100 #### [facility] [address] [place], [address] ECRCL 75.82 ml/min Normal [facility] Comment on above: Performed By: #### L 500.2500, L100.0100 #### [facility] [address] [place], [address] EST GFR - AA 212 mL/min Normal >60 [facility] Comment on above: Result Comment: Afri can [place] GFR Calc Performed By: #### L 500.2500, L100.0100 #### [facility] [address] [place], [address] GAP 8 Normal 5-15 [facility] Comment on above: Performed By: #### L 500.2500, L100.0100 #### [facility] [address] [place], [address] GFR/1.73 sq M.predicted among non-blacks MDRD (S/P/Bld) [Vol rate/Area] 176 mL/min/{1.73_m2} Normal >60 [facility] Comment on above: Result Comment: Non- GFR Calc Performed By: #### L 500.2500, L100.0100 #### [facility] [address] [place], [address] Glucose [Mass/Vol] 95 mg/dL Normal 74-106 [facility] Comment on above: Performed By: #### L 500.2500, L100.0100 #### [facility] [address] [place], [address] Potassium [Moles/Vol] 3.2 mmol/L Low 3.5-5.1 [facility] Comment on above: Performed By: #### L 500.2500, L100.0100 #### [facility] [address] [place], [address] Sodium [Moles/Vol] 130 mmol/L Low 136-145 [facility] Comment on above: Performed By: #### L 500.2500, L100.0100 #### [facility] [address] [place], [address] Urea nitrogen [Mass/Vol] 11 mg/dL Normal 7-18 [facility] Comment on above: Performed By: #### L 500.2500, L100.0100 #### [facility] [address] [place], [address] Iron+Iron Binding Capacityon 08-19-2024 Iron [Mass/Vol] 27 ug/dL Low 65-175 [facility] Comment on above: Performed By: #### L 503.6030 #### [facility] [address] [place], [address] IRON SATURATION 8.5 Low 15.0-55.0 [facility] Comment on above: Performed By: #### L 503.6030 #### [facility] [address] [place], [address] TIBC 319 ug/dL Normal 250-450 [facility] Comment on above: Performed By: #### L 503.6030 #### [facility] [address] [place], [address] Stool Occult Blood iFOBon STOB Negative Normal [facility] Comment on above: Performed By: #### M 100.7900 ####[facility] [address] [place], [address] CBC WITH AUTO DIFFERENTIALon 08-18-2024 AUTO NRBC 0.0 % [facility] Comment on above: Performed By: #### 4 5060 #### [facility] [address] [address] Galo Monsalve M.D. [id number] AUTO NRBC ABS COUNT 0.00 K/mcL Normal 0.00-0.00 [facility] Comment on above: Performed By: #### 4 5060 #### LAB [address] [place], [place] [address] Galo Monsalve M.D. [id number] BASOPHILS ABSOLUTE COUNT 0.01 K/mcL Normal 0.00-0.30 [facility] Comment on above: Performed By: #### 4 5060 #### [facility] [address] [address] Galo Monsalve M.D. [id number] Basophils/100 WBC (Bld) 0.5 % [facility] Comment on above: Performed By: #### 4 5060 #### LAB [address] [address] Galo Monsalve M.D. [id number] Eosinophils (Bld) [#/Vol] 0.06 10*3/uL Normal 0.00-0.50 [facility] Comment on above: Performed By: #### 4 5060 #### LAB [address] [address] Galo Monsalve M.D. [id number] Eosinophils/100 WBC (Bld) 3.1 % Normal [facility] Comment on above: Performed By: #### 4 5060 #### LAB [address] [address] Galo Monsalve M.D. [id number] Erythrocyte distribution width (RBC) [Ratio] 19.4 % High 11.6-14.8 [facility] Comment on above: Performed By: #### 4 5060 #### LAB [address] [address] Galo Monsalve M.D. [id number] Hematocrit (Bld) [Volume fraction] 27.8 % Low 41.0-53.0 [facility] Comment on above: Performed By: #### 4 5060 #### LAB [address] [address] Galo Monsalve M.D. [id number] Hemoglobin (Bld) [Mass/Vol] 8.6 g/dL Low 13.5-17.5 [facility] Comment on above: Performed By: #### 4 5060 #### LAB [address] [address] Galo Monsalve M.D. [id number] IG ABSOLUTE 0.01 K/mcL Normal 0.00-0.30 [facility] Comment on above: Performed By: #### 4 5060 #### LAB [address] [address] Galo Monsalve M.D. [id number] IG PERCENT 0.50 % Normal [facility] Comment on above: Result Comment: The IG parameter is the percentage of metamyelocytes, myelocytes and promyelocytes. An immature granulocyte count (IG) of 1% or more suggests the possibility of infection, an IG count of 3% is very likely related to an infection. Performed By: #### 4 5060 #### [facility] [address] [address] Galo Monsalve M.D. [id number] Lymphocytes (Bld) [#/Vol] 0.18 10*3/uL Low 0.90-4.00 [facility] Comment on above: Performed By: #### 4 5060 #### LAB [address] [address] Galo Monsalve M.D. [id number] Lymphocytes/100 WBC (Bld) 9.4 % Normal [facility] Comment on above: Performed By: #### 4 5060 #### LAB [address] [address] Galo Monsalve M.D. [id number] MCH (RBC) [Entitic mass] 24.8 pg Low 26.0-34.0 [facility] Comment on above: Performed By: #### 4 5060 #### LAB [address] [address] Galo Monsalve M.D. [id number] MCV (RBC) [Entitic vol] 80.1 fL Normal 80.0-100.0 [facility] Comment on above: Performed By: #### 4 5060 #### LAB [address] [place] [address] Galo Monsalve M.D. [id number] MEAN CORPUSCULAR HEMOGLOBIN CONC 30.9 g/dL Low 31.0-37.0 [facility] Comment on above: Performed By: #### 4 5060 #### LAB [address] [address] Galo Monsalve M.D. [id number] Monocytes (Bld) [#/Vol] 0.22 10*3/uL Low 0.30-0.90 [facility] Comment on above: Performed By: #### 4 5060 #### LAB [address] [place] [address] Galo Monsalve M.D. [id number] Monocytes/100 WBC (Bld) 11.5 % Normal [facility] Comment on above: Performed By: #### 4 5060 #### LAB [address] [address] Galo Monsalve M.D. [id number] NEUTROPHILS ABSOLUTE COUNT 1.44 K/mcL Low 1.70-7.00 [facility] Comment on above: Performed By: #### 4 5060 #### LAB [address] [address] Galo Monsalve M.D. [id number] Neutrophils/100 WBC (Bld) 75.0 % Normal [facility] Comment on above: Performed By: #### 4 5060 #### LAB [address] [address] Galo Monsalve M.D. [id number] Platelet mean volume (Bld) [Entitic vol] 10.1 fL Normal 9.4-12.4 [facility] Comment on above: Performed By: #### 4 5060 #### LAB [address] [address] Galo Monsalve M.D. [id number] Platelets (Bld) [#/Vol] 119 10*3/uL Low 150-400 [facility] Comment on above: Performed By: #### 4 5060 #### LAB [address] [address] Galo Monsalve M.D. [id number] RBC (Bld) [#/Vol] 3.47 10*6/uL Low 4.50-5.90 [facility] Comment on above: Performed By: #### 4 5060 #### LAB [address] [address] Galo Monsalve M.D. [id number] WBC (Bld) [#/Vol] 1.92 10*3/uL Low 4.50-11.00 [facility] Comment on above: Performed By: #### 4 5060 #### LAB [address] [address] Galo Monsalve M.D. [id number] COMPREHENSIVE METABOLIC PANE Vicente 08-18-2024 Albumin [Mass/Vol] 3.2 g/dL Normal 3.2-5.2 [facility] Comment on above: Order Comment: [facility] has implemented the eGFR calculation approach that does not have a coefficient for race that conforms to the NKF-ASN Task Force Recommendations. Performed By: #### 4 6126 #### LAB [address] [address] Galo Monsalve M.D. [id number] ALP [Catalytic activity/Vol] 64 U/L Normal 40-150 [facility] Comment on above: Order Comment: [facility] has implemented the eGFR calculation approach that does not have a coefficient for race that conforms to the NKF-ASN Task Force Recommendations. Performed By: #### 4 6126 #### LAB [address] [address] Galo Monsalve M.D. [id number] ALT [Catalytic activity/Vol] 9 U/L Normal 0-50 U/L [facility] Comment on above: Order Comment: [facility] has implemented the eGFR calculation approach that does not have a coefficient for race that conforms to the NKF-ASN Task Force Recommendations. Performed By: #### 4 6126 #### LAB [address] [address] Galo Monsalve M.D. [id number] Anion gap [Moles/Vol] 15 mmol/L Normal 10-20 [facility] Comment on above: Order Comment: [facility] has implemented the eGFR calculation approach that does not have a coefficient for race that conforms to the NKF-ASN Task Force Recommendations. Performed By: #### 4 6126 #### LAB [address] [address] Galo Monsalve M.D. [id number] AST [Catalytic activity/Vol] 25 U/L Normal 0-50 U/L [facility] Comment on above: Order Comment: [facility] has implemented the eGFR calculation approach that does not have a coefficient for race that conforms to the NKF-ASN Task Force Recommendations. Performed By: #### 4 6126 #### LAB [address] [id number] Galo Monsalve M.D. [id number] Bilirubin [Mass/Vol] 0.6 mg/dL Normal 0.0-1.3 [facility] Comment on above: Order Comment: [facility] has implemented the eGFR calculation approach that does not have a coefficient for race that conforms to the NKF-ASN Task Force Recommendations. Performed By: #### 4 6126 #### LAB [address] [address] Galo Monsalve M.D. [id number] Calcium [Mass/Vol] 8.5 mg/dL Normal 8.4-10.2 [facility] Comment on above: Order Comment: [facility] has implemented the eGFR calculation approach that does not have a coefficient for race that conforms to the NKF-ASN Task Force Recommendations. Performed By: #### 4 6126 #### LAB [address] [address] Galo Monsalve M.D. [id number] Chloride [Moles/Vol] 98 mmol/L Normal 98-108 [facility] Comment on above: Order Comment: [facility] has implemented the eGFR calculation approach that does not have a coefficient for race that conforms to the NKF-ASN Task Force Recommendations. Performed By: #### 4 6126 #### LAB [address] [address] Galo Monsalve M.D. [id number] Creatinine [Mass/Vol] 0.58 mg/dL Low 0.80-1.30 [facility] Comment on above: Order Comment: [facility] has implemented the eGFR calculation approach that does not have a coefficient for race that conforms to the NKF-ASN Task Force Recommendations. Performed By: #### 4 6126 #### LAB [address] [id number] aGlo Monsalve M.D. [id number] EGFR 97 mL/min/1.73 m2 Normal >=60 [facility] Comment on above: Order Comment: [facility] has implemented the eGFR calculation approach that does not have a coefficient for race that conforms to the NKF-ASN Task Force Recommendations. Result Comment: Yadira mated GFR was calculated using the 2020 CKD-EPI creatinine equation. Performed By: #### 4 6126 #### LAB [address] [address] Galo Monsalve M.D. [id number] Glucose [Mass/Vol] 104 mg/dL High 65-99 [facility] Comment on above: Order Comment: [facility] has implemented the eGFR calculation approach that does not have a coefficient for race that conforms to the NKF-ASN Task Force Recommendations. Performed By: #### 4 6126 #### LAB [address] [address] Galo Monsalve M.D. [id number] HCO3 (Bld) [Moles/Vol] 21 mmol/L Normal 21-32 [facility] Comment on above: Order Comment: [facility] has implemented the eGFR calculation approach that does not have a coefficient for race that conforms to the NKF-ASN Task Force Recommendations. Performed By: #### 4 6126 #### [facility] [address] [address] Galo Monsalve M.D. [id number] Potassium [Moles/Vol] 3.6 mmol/L Normal 3.5-5.1 [facility] Comment on above: Order Comment: [facility] has implemented the eGFR calculation approach that does not have a coefficient for race that conforms to the NKF-ASN Task Force Recommendations. Performed By: #### 4 6126 #### [facility] [address] [address] Galo Monsalve M.D. [id number] Protein [Mass/Vol] 6.2 g/dL Normal 6.0-8.0 [facility] Comment on above: Order Comment: [facility] has implemented the eGFR calculation approach that does not have a coefficient for race that conforms to the NKF-ASN Task Force Recommendations. Performed By: #### 4 6126 #### [facility] [address] [address] Galo Monsalve M.D. [id number] Sodium [Moles/Vol] 130 mmol/L Low 135-145 [facility] Comment on above: Order Comment: [facility] has implemented the eGFR calculation approach that does not have a coefficient for race that conforms to the NKF-ASN Task Force Recommendations. Performed By: #### 4 6126 #### LAB [address] [address] Galo Monsalve M.D. [id number] Urea nitrogen [Mass/Vol] 15 mg/dL Normal 8-25 [facility] Comment on above: Order Comment: [facility] has implemented the eGFR calculation approach that does not have a coefficient for race that conforms to the NKF-ASN Task Force Recommendations. Performed By: #### 4 6126 #### LAB [address] [address] Galo Monsalve M.D. [id number] Urea nitrogen/Creatinine [Mass ratio] 25.9 mg/mg High 10.0-20.0 [facility] Comment on above: Order Comment: [facility] has implemented the eGFR calculation approach that does not have a coefficient for race that conforms to the NKF-ASN Task Force Recommendations. Performed By: #### 4 6126 #### LAB [address] [id number] Galo Monsalve M.D. [id number] MAGNESIUM LEVELon 08-18-2024 Magnesium [Mass/Vol] 2.1 mg/dL Normal 1.6-2.4 [facility] Comment on above: Performed By: #### 4 6109 ####[facility] [address] [id number] Galo Monsalve M.D. [id number] PHOSPHORUSon 08-18-2024 Phosphate [Mass/Vol] 2.0 mg/dL Low 2.3-3.7 [facility] Comment on above: Performed By: #### 4 6109 #### [facility] [address] [place], [place] [address] Galo Monsalve M.D. [id number] US RENAL AND BLADDERon 08-18 US RENAL AND BLADDER EXAMINATION: US RENAL AND BLADDER HISTORY: urinary retention Dx: I10 (Hypertension, unspecified type) Injury/Trauma or Illness?:Illness/Other Urinary Retention COMPARISON: Chest, abdomen, and pelvis CT 08/12/2024. FINDINGS: Sonography of both kidneys. Right Kidney: 10.0 x 4.8 x 4.4 cm. Left Kidney: 12.9 x 6.0 x 5.0 cm. Renal echogenicity and architecture are normal. No collecting system dilatation. No shadowing renal calculi. Urinary bladder is normal in contour. No bladder wall thickening. No bladder filling defects. Bilateral ureteric jets are present. Prevoid volume: 94 mL. IMPRESSION: 1. Renal size asymmetry, with decreased right renal size relative to left, stable. 2. Otherwise normal renal ultrasound. 3. No bladder distention or findings of urinary retention. [employer] Workstation ID: [id number] Dictated by: ANNY MCKEON on WedAug 18, 2024 3:13:45 PM EST Transcribed by: LACIE ALEJO on WedAug 18, 2024 3:16:13 PM EST Finalized by: ANNY MCKEON on WedAug 19, 2024 6:47:15 PM EST Normal [facility] Comment on above: Order Comment: Injur y/Trauma or Illness?:Illness/OtherUrinary RetentionHow long have you had these symptoms (acute/chronic)?:AcuteReason for exam?:RetentionHistory of cancer?:uSurgeries, chemotherapy, or radiation?:uType of Exam?:InitialAdditional signs and symptoms?:7 fractured ribs left side CBC WITH AUTO DIFFERENTIALon 08-17-2024 AUTO NRBC 0.0 % Normal [facility] Comment on above: Performed By: #### 4 5145 #### LAB [address] [place], [place] [address] Galo Monsalve M.D. [id number] AUTO NRBC ABS COUNT 0.00 K/mcL Normal 0.00-0.00 [facility] Comment on above: Performed By: #### 4 5148 #### LAB [address] [address] Galo Monsalve M.D. [id number] BASOPHILS ABSOLUTE COUNT 0.00 K/mcL Normal 0.00-0.30 [facility] Comment on above: Performed By: #### 4 5145 #### LAB [address] [address] Galo Monsalve M.D. [id number] Basophils/100 WBC (Bld) 0.0 % Normal [facility] Comment on above: Performed By: #### 4 5145 #### LAB [address] [address] Galo Monsalve M.D. [id number] Eosinophils (Bld) [#/Vol] 0.03 10*3/uL Normal 0.00-0.50 [facility] Comment on above: Performed By: #### 4 5145 #### LAB [address] [address] Galo Monsalve M.D. [id number] Eosinophils/100 WBC (Bld) 1.7 % Normal [facility] Comment on above: Performed By: #### 4 5145 #### LAB [address] [address] Galo Monsalve M.D. [id number] Erythrocyte distribution width (RBC) [Ratio] 19.3 % High 11.6-14.8 [facility] Comment on above: Performed By: #### 4 5145 #### LAB [address] [address] Galo Monsalve M.D. [id number] Hematocrit (Bld) [Volume fraction] 27.5 % Low 41.0-53.0 [facility] Comment on above: Performed By: #### 4 5145 #### LAB [address] [address] Galo Monsalve M.D. [id number] Hemoglobin (Bld) [Mass/Vol] 8.4 g/dL Low 13.5-17.5 [facility] Comment on above: Performed By: #### 4 5145 #### LAB [address] [address] Galo Monsalve M.D. [id number] IG ABSOLUTE 0.00 K/mcL Normal 0.00-0.30 [facility] Comment on above: Performed By: #### 4 5145 #### LAB [address] [address] Galo Monsalve M.D. [id number] IG PERCENT 0.00 % [facility] Comment on above: Result Comment: The IG parameter is the percentage of metamyelocytes, myelocytes and promyelocytes. An immature granulocyte count (IG) of 1% or more suggests the possibility of infection, an IG count of 3% is very likely related to an infection. Performed By: #### 4 5145 #### LAB [address] [address] Galo Monsalve M.D. [id number] Lymphocytes (Bld) [#/Vol] 0.16 10*3/uL Low 0.90-4.00 [facility] Comment on above: Performed By: #### 4 5145 #### LAB [address] [address] Galo Monsalve M.D. [id number] Lymphocytes/100 WBC (Bld) 9.0 % [facility] Comment on above: Performed By: #### 4 5145 #### LAB [address] [address] Galo Monsalve M.D. [id number] MCH (RBC) [Entitic mass] 24.9 pg Low 26.0-34.0 [facility] Comment on above: Performed By: #### 4 5145 #### LAB [address] [address] Galo Monsalve M.D. [id number] MCV (RBC) [Entitic vol] 81.4 fL Normal 80.0-100.0 [facility] Comment on above: Performed By: #### 4 5145 #### LAB [address] [address] Galo Monsalve M.D. [id number] MEAN CORPUSCULAR HEMOGLOBIN CONC 30.5 g/dL Low 31.0-37.0 [facility] Comment on above: Performed By: #### 4 5145 #### LAB [address] [address] Galo Monsalve M.D. [id number] Monocytes (Bld) [#/Vol] 0.25 10*3/uL Low 0.30-0.90 [facility] Comment on above: Performed By: #### 4 5145 #### LAB [address] [address] Galo Monsalve M.D. [id number] Monocytes/100 WBC (Bld) 14.0 % Normal [facility] Comment on above: Performed By: #### 4 5145 #### LAB [address] [address] Galo Monsalve M.D. [id number] NEUTROPHILS ABSOLUTE COUNT 1.34 K/mcL Low 1.70-7.00 [facility] Comment on above: Performed By: #### 4 5145 #### LAB [address] [address] Galo Monsalve M.D. [id number] Neutrophils/100 WBC (Bld) 75.3 % Normal [facility] Comment on above: Performed By: #### 4 5145 #### LAB [address] [address] Galo Monsalve M.D. [id number] Platelet mean volume (Bld) [Entitic vol] 10.0 fL Normal 9.4-12.4 [facility] Comment on above: Performed By: #### 4 5145 #### LAB [address] [address] Galo Monsalve M.D. [id number] Platelets (Bld) [#/Vol] 97 10*3/uL Low 150-400 [facility] Comment on above: Performed By: #### 4 5145 #### LAB [address] [address] Galo Monsalve M.D. [id number] RBC (Bld) [#/Vol] 3.38 10*6/uL Low 4.50-5.90 [facility] Comment on above: Performed By: #### 4 5145 #### LAB [address] [address] Galo Monsalve M.D. [id number] WBC (Bld) [#/Vol] 1.78 10*3/uL Low 4.50-11.00 [facility] Comment on above: Performed By: #### 4 5145 #### LAB [address] [address] Galo Monsalve M.D. [id number] COMPREHENSIVE METABOLIC PANE Vicente 08-17-2024 Albumin [Mass/Vol] 3.1 g/dL Low 3.2-5.2 [facility] Comment on above: Order Comment: [facility] has implemented the eGFR calculation approach that does not have a coefficient for race that conforms to the NKF-ASN Task Force Recommendations. Performed By: #### 4 6109 #### LAB [address] [address] Galo Monsalve M.D. [id number] ALP [Catalytic activity/Vol] 58 U/L Normal 40-150 [facility] Comment on above: Order Comment: [facility] has implemented the eGFR calculation approach that does not have a coefficient for race that conforms to the NKF-ASN Task Force Recommendations. Performed By: #### 4 6109 #### LAB [address] [address] Galo Monsalve M.D. [id number] ALT [Catalytic activity/Vol] 7 U/L Normal 0-50 U/L [facility] Comment on above: Order Comment: [facility] has implemented the eGFR calculation approach that does not have a coefficient for race that conforms to the NKF-ASN Task Force Recommendations. Performed By: #### 4 6109 #### LAB [address] [address] Galo Monsalve M.D. [id number] Anion gap [Moles/Vol] 15 mmol/L Normal 10-20 [facility] Comment on above: Order Comment: [facility] has implemented the eGFR calculation approach that does not have a coefficient for race that conforms to the NKF-ASN Task Force Recommendations. Performed By: #### 4 6109 #### LAB [address] [address] Galo Monsalve M.D. [id number] AST [Catalytic activity/Vol] 26 U/L Normal 0-50 U/L [facility] Comment on above: Order Comment: [facility] has implemented the eGFR calculation approach that does not have a coefficient for race that conforms to the NKF-ASN Task Force Recommendations. Performed By: #### 4 6109 #### LAB [address] [address] Galo Monsalve M.D. [id number] Bilirubin [Mass/Vol] 0.7 mg/dL Normal 0.0-1.3 [facility] Comment on above: Order Comment: [facility] has implemented the eGFR calculation approach that does not have a coefficient for race that conforms to the NKF-ASN Task Force Recommendations. Performed By: #### 4 6109 #### LAB [address] [address] Galo Monsalve M.D. [id number] Calcium [Mass/Vol] 8.3 mg/dL Low 8.4-10.2 [facility] Comment on above: Order Comment: [facility] has implemented the eGFR calculation approach that does not have a coefficient for race that conforms to the NKF-ASN Task Force Recommendations. Performed By: #### 4 6109 #### LAB [address] [address] Galo Monsalve M.D. [id number] Chloride [Moles/Vol] 97 mmol/L Low 98-108 [facility] Comment on above: Order Comment: [facility] has implemented the eGFR calculation approach that does not have a coefficient for race that conforms to the NKF-ASN Task Force Recommendations. Performed By: #### 4 6109 #### LAB [address] [address] Galo Monsalve M.D. [id number] Creatinine [Mass/Vol] 0.75 mg/dL Low 0.80-1.30 [facility] Comment on above: Order Comment: [facility] has implemented the eGFR calculation approach that does not have a coefficient for race that conforms to the NKF-ASN Task Force Recommendations. Performed By: #### 4 6109 #### LAB [address] [address] Galo Monsalve M.D. [id number] EGFR 90 mL/min/1.73 m2 Normal >=60 [facility] Comment on above: Order Comment: [facility] has implemented the eGFR calculation approach that does not have a coefficient for race that conforms to the NKF-ASN Task Force Recommendations. Result Comment: Yadira mated GFR was calculated using the 2020 CKD-EPI creatinine equation. Performed By: #### 4 6109 #### LAB [address] [address] Galo Monsalve M.D. [id number] Glucose [Mass/Vol] 93 mg/dL Normal 65-99 [facility] Comment on above: Order Comment: [facility] has implemented the eGFR calculation approach that does not have a coefficient for race that conforms to the NKF-ASN Task Force Recommendations. Performed By: #### 4 6109 #### LAB [address] [address] Galo Monsalve M.D. [id number] HCO3 (Bld) [Moles/Vol] 21 mmol/L Normal 21-32 [facility] Comment on above: Order Comment: [facility] has implemented the eGFR calculation approach that does not have a coefficient for race that conforms to the NKF-ASN Task Force Recommendations. Performed By: #### 4 6109 #### LAB [address] [address] Galo Monsalve M.D. [id number] Potassium [Moles/Vol] 3.8 mmol/L Normal 3.5-5.1 [facility] Comment on above: Order Comment: [facility] has implemented the eGFR calculation approach that does not have a coefficient for race that conforms to the NKF-ASN Task Force Recommendations. Performed By: #### 4 6109 #### [facility] LAB [address] [place], [place] [address] Galo Monsalve M.D. [id number] Protein [Mass/Vol] 6.1 g/dL Normal 6.0-8.0 [facility] Comment on above: Order Comment: [facility] has implemented the eGFR calculation approach that does not have a coefficient for race that conforms to the NKF-ASN Task Force Recommendations. Performed By: #### 4 6109 #### LAB [address] [address] Galo Monsalve M.D. [id number] Sodium [Moles/Vol] 129 mmol/L Low 135-145 [facility] Comment on above: Order Comment: [facility] has implemented the eGFR calculation approach that does not have a coefficient for race that conforms to the NKF-ASN Task Force Recommendations. Performed By: #### 4 6109 #### LAB [address] [address] Galo Monsalve M.D. [id number] Urea nitrogen [Mass/Vol] 22 mg/dL Normal 8-25 [facility] Comment on above: Order Comment: [facility] has implemented the eGFR calculation approach that does not have a coefficient for race that conforms to the NKF-ASN Task Force Recommendations. Performed By: #### 4 6109 #### LAB [address] [address] Galo Monsalve M.D. [id number] Urea nitrogen/Creatinine [Mass ratio] 29.3 mg/mg High 10.0-20.0 [facility] Comment on above: Order Comment: [facility] has implemented the eGFR calculation approach that does not have a coefficient for race that conforms to the NKF-ASN Task Force Recommendations. Performed By: #### 4 6109 #### LAB [address] [place], [place] [address] Galo Monsalve M.D. [id number] CONSULTon 08-17-2024 CONSULT Neurology Inpatient Consult [facility] Date of Service: 08/17/24 Admit Date: 08/13/2024 Service Type: New Patient Consultation Patient: Salvador Glass Jr. Date of : 1940 (84 y.o.) Referring Provider: Refer to consult order in electronic medical record Assessment ASSESSMENT: Salvador Glass Jr. is a 84 y.o. male who presented to [facility] on 08/13/2024 with fall and syncope; neurology consulted for delirium. Patient with history of alcohol abuse in the past (at least 4 drinks per day or more, last drink 1 day prior to admission), presented with syncopal episode and fall at home with resultant rib fractures. The last few days has had waxing/waning mental status consistent with mostly hypoactive delirium. Improved after stopping tizanidine so pain medications were probably a component. Pain, chronic hyponatremia (Na 129) prolonged hospitalization, age, history of alcohol use, and medications likely all contribute. He just started PT on 08/16 so immobility was probably also a factor. I would continue encouraging mobility and regular sleep/wake cycles. Minimize sedating medications. Correct hyponatremia if possible. Continue using lidocaine patches to affected areas Head CT was unremarkable other than global atrophy and remote ischemic changes. He has a history of afib, is not on anticoagulation due to frequent falls, which is likely in turn related to alcohol use. I recommended alcohol cessation as a way to work on improving his balance. Diagnoses: Hypoactive delirium (presently improved) Admitted with these risk variables:None. Please see assessment and plan for further details. PLAN: - PT/OT, mobilize as able - Recommend delirium precautions: - repeated reorientation; promotion of good sleep hygiene (reduce unnecessary noise, overnight exams or lab draws); use sensory aids (glasses, hearing aids) as indicated; removal of unnecessary attachments, lines, etc; encourage familiar faces (family, friends, photos, etc); mobilize as much as able during the day using therapy or at least getting into chair. - address any signs of pain/discomfort - melatonin 5mg nightly PRN to help with sleep - while we try to minimize medications, which can prolong delirium and hospital stays, medications can be used for safety of patient and staff - recommend scheduled lidocaine patches for pain - monitor electrolytes, especially potassium and magnesium, replete as needed - neurology will sign off at this time. However, please do not hesitate to contact us with any questions, concerns, or changes in exam. Walter Bonilla MD Staff Neurologist [facility] [address] [id number], [facility] [address] [facility] 08/17/24 Parts of this note may have been dictated using [employer], a speech-recognition software. Syntax errors and sound-alike substitutions which may escape proofreading could be present. In such instances, the actual meaning can be extrapolated from the context. Subjective SUBJECTIVE: Chief Complaint/Reason for Consult: Hypoactive delirium History of Present Illness: Salvador Glass Jr. is a 84 y.o. male who presented on 08/13/2024 for fall/syncope. Neurology is consulted for fall and syncope. Patient with history of afib (not on anticoag due to falls), alcohol abuse (last drink day prior to admission; endorses at least 3 or 4 drinks per day). Presented after what sounds like possible syncope with fall at home. Resulted in multiple rib fractures. While here, his mental status has waxed and waned, with periods of decreased responsiveness in between times where he is fully alert and oriented. On 08/16 he had episodes of decreased responsiveness to staff. Head CT showed no acute change. Today is alert and oriented. He endorses severe pain in the ribs on the left side but no other pain. Review of systems: All systems were reviewed and found to be negative except for those mentioned in the HPI. Review of data including medical histories, allergies and medications Medical surgical social and family histories: He has a past medical history of Arrhythmia, Bradycardia, Hypertension, Leukopenia, Mild anemia, Psoriasis, and Renal failure. He has no past surgical history on file. He family history includes Asthma in his father; Diabetes in his father; Emphysema in his mother. He reports that he quit smoking about 40 years ago. His smoking use included cigarettes. He has never used smokeless tobacco. He reports current alcohol use. He reports that he does not use drugs. Allergies: Allergies: Patient has no known allergies. MEDICATIONS: WERE REVIEWED AND CHECKED FOR ALLERGIES AND INTERACTIONS (IN EMR). Objective OBJECTIVE: Physical Examination: BP (!) 145/50 Pulse 63 Temp 97.9 degrees F (36.6 degrees C) (Oral) Resp 1 (more content not included)... Normal [facility] MAGNESIUM LEVELon 08-17-2024 Magnesium [Mass/Vol] 2.3 mg/dL Normal 1.6-2.4 [facility] Comment on above: Performed By: #### 4 5060 #### LAB [address] [address] Galo Monsalve M.D. [id number] PHOSPHORUSon 08-17-2024 Phosphate [Mass/Vol] 2.4 mg/dL Normal 2.3-3.7 [facility] Comment on above: Performed By: #### 4 6299 #### LAB [address] [address] Galo Monsalve M.D. [id number] CBC WITH AUTO DIFFERENTIALon 08-16-2024 AUTO NRBC 0.0 % [facility] Comment on above: Performed By: #### 4 5145 #### LAB [address] [address] Galo Monsalve M.D. [id number] AUTO NRBC ABS COUNT 0.00 K/mcL Normal 0.00-0.00 [facility] Comment on above: Performed By: #### 4 5145 #### LAB [address] [address] Galo Monsalve M.D. [id number] BASOPHILS ABSOLUTE COUNT 0.01 K/mcL Normal 0.00-0.30 [facility] Comment on above: Performed By: #### 4 5145 #### LAB [address] [address] Galo Monsalve M.D. [id number] Basophils/100 WBC (Bld) 0.5 % [facility] Comment on above: Performed By: #### 4 5145 #### LAB [address] [address] Galo Monsalve M.D. [id number] Eosinophils (Bld) [#/Vol] 0.02 10*3/uL Normal 0.00-0.50 [facility] Comment on above: Performed By: #### 4 5145 #### LAB [address] [address] Galo Monsalve M.D. [id number] Eosinophils/100 WBC (Bld) 1.0 % Normal [facility] Comment on above: Performed By: #### 4 5145 #### LAB [address] [address] Galo Monsalve M.D. [id number] Erythrocyte distribution width (RBC) [Ratio] 19.3 % High 11.6-14.8 [facility] Comment on above: Performed By: #### 4 5145 #### LAB [address] [address] Galo Monsalve M.D. [id number] Hematocrit (Bld) [Volume fraction] 26.9 % Low 41.0-53.0 [facility] Comment on above: Performed By: #### 4 5145 #### LAB [address] [address] Galo Monsalve M.D. [id number] Hemoglobin (Bld) [Mass/Vol] 8.2 g/dL Low 13.5-17.5 [facility] Comment on above: Performed By: #### 4 5145 #### LAB [address] [address] Galo Monsalve M.D. [id number] IG ABSOLUTE 0.01 K/mcL Normal 0.00-0.30 [facility] Comment on above: Performed By: #### 4 5145 #### LAB [address] [address] Galo Monsalve M.D. [id number] IG PERCENT 0.50 % [facility] Comment on above: Result Comment: The IG parameter is the percentage of metamyelocytes, myelocytes and promyelocytes. An immature granulocyte count (IG) of 1% or more suggests the possibility of infection, an IG count of 3% is very likely related to an infection. Performed By: #### 4 5145 #### LAB [address] [address] Galo Monsalve M.D. [id number] Lymphocytes (Bld) [#/Vol] 0.15 10*3/uL Low 0.90-4.00 [facility] Comment on above: Performed By: #### 4 5145 #### LAB [address] [address] Galo Monsalve M.D. [id number] Lymphocytes/100 WBC (Bld) 7.9 % Normal [facility] Comment on above: Performed By: #### 4 5145 #### LAB [address] [place] [address] Galo Monsalve M.D. [id number] MCH (RBC) [Entitic mass] 24.7 pg Low 26.0-34.0 [facility] Comment on above: Performed By: #### 4 5145 #### LAB [address] [place] [address] Galo Monsalve M.D. [id number] MCV (RBC) [Entitic vol] 81.0 fL Normal 80.0-100.0 [facility] Comment on above: Performed By: #### 4 5145 #### LAB [address] [place] [address] Galo Monsalve M.D. [id number] MEAN CORPUSCULAR HEMOGLOBIN CONC 30.5 g/dL Low 31.0-37.0 [facility] Comment on above: Performed By: #### 4 5145 #### LAB [address] [place] [address] Galo Monsalve M.D. [id number] Monocytes (Bld) [#/Vol] 0.33 10*3/uL Normal 0.30-0.90 [facility] Comment on above: Performed By: #### 4 5145 #### LAB [address] [id number] Galo Monsalve M.D. [id number] Monocytes/100 WBC (Bld) 17.3 % Normal [facility] Comment on above: Performed By: #### 4 5145 #### LAB [address] [address] Galo Monsalve M.D. [id number] NEUTROPHILS ABSOLUTE COUNT 1.39 K/mcL Low 1.70-7.00 [facility] Comment on above: Performed By: #### 4 5145 #### LAB [address] [address] Galo Monsalve M.D. [id number] Neutrophils/100 WBC (Bld) 72.8 % Normal [facility] Comment on above: Result Comment: Librado pheral smear reviewed manually Performed By: #### 4 5145 #### LAB [address] [address] Galo Monsalve M.D. [id number] Platelet mean volume (Bld) [Entitic vol] 9.8 fL Normal 9.4-12.4 [facility] Comment on above: Performed By: #### 4 5145 #### LAB [address] [address] Galo Monsalve M.D. [id number] Platelets (Bld) [#/Vol] 91 10*3/uL Low 150-400 [facility] Comment on above: Performed By: #### 4 5145 #### LAB [address] [address] Galo Monsalve M.D. [id number] RBC (Bld) [#/Vol] 3.32 10*6/uL Low 4.50-5.90 [facility] Comment on above: Performed By: #### 4 5145 #### LAB [address] [address] Galo Monsalve M.D. [id number] WBC (Bld) [#/Vol] 1.91 10*3/uL Low 4.50-11.00 [facility] Comment on above: Performed By: #### 4 5145 #### LAB [address] [address] Galo Monsalve M.D. [id number] AUTO NRBC 0.0 % Normal [facility] Comment on above: Performed By: #### 4 5145 #### LAB [address] [address] Galo Monsalve M.D. [id number] AUTO NRBC ABS COUNT 0.00 K/mcL Normal 0.00-0.00 [facility] Comment on above: Performed By: #### 4 5145 #### LAB [address] [address] Galo Monsalve M.D. [id number] BASOPHILS ABSOLUTE COUNT 0.01 K/mcL Normal 0.00-0.30 [facility] Comment on above: Performed By: #### 4 5145 #### LAB [address] [address] Galo Monsalve M.D. [id number] Basophils/100 WBC (Bld) 0.3 % Normal [facility] Comment on above: Performed By: #### 4 5145 #### LAB [address] [place] [address] Galo Monsalve M.D. [id number] Eosinophils (Bld) [#/Vol] 0.00 10*3/uL Normal 0.00-0.50 [facility] Comment on above: Performed By: #### 4 5145 #### LAB [address] [address] Galo Monsalve M.D. [id number] Eosinophils/100 WBC (Bld) 0.0 % Normal [facility] Comment on above: Performed By: #### 4 5145 #### LAB [address] [address] Galo Monsalve M.D. [id number] Erythrocyte distribution width (RBC) [Ratio] 19.1 % High 11.6-14.8 [facility] Comment on above: Performed By: #### 4 5145 #### LAB [address] [address] Galo Monsalve M.D. [id number] Hematocrit (Bld) [Volume fraction] 31.5 % Low 41.0-53.0 [facility] Comment on above: Performed By: #### 4 5145 #### LAB [address] [address] Galo Monsalve M.D. [id number] Hemoglobin (Bld) [Mass/Vol] 9.6 g/dL Low 13.5-17.5 [facility] Comment on above: Performed By: #### 4 5145 #### LAB [address] [address] Galo Monsalve M.D. [id number] IG ABSOLUTE 0.01 K/mcL Normal 0.00-0.30 [facility] Comment on above: Performed By: #### 4 5145 #### LAB [address] [address] Galo Monsalve M.D. [id number] IG PERCENT 0.30 % [facility] Comment on above: Result Comment: The IG parameter is the percentage of metamyelocytes, myelocytes and promyelocytes. An immature granulocyte count (IG) of 1% or more suggests the possibility of infection, an IG count of 3% is very likely related to an infection. Performed By: #### 4 5145 #### LAB [address] [address] Galo Monsalve M.D. [id number] Lymphocytes (Bld) [#/Vol] 0.22 10*3/uL Low 0.90-4.00 [facility] Comment on above: Performed By: #### 4 5145 #### LAB [address] [address] Galo Monsalve M.D. [id number] Lymphocytes/100 WBC (Bld) 7.4 % [facility] Comment on above: Performed By: #### 4 5145 #### LAB [address] [place] [address] Galo Monsalve M.D. [id number] MCH (RBC) [Entitic mass] 24.8 pg Low 26.0-34.0 [facility] Comment on above: Performed By: #### 4 5145 #### LAB [address] [address] Galo Monsalve M.D. [id number] MCV (RBC) [Entitic vol] 81.4 fL Normal 80.0-100.0 [facility] Comment on above: Performed By: #### 4 5145 #### LAB [address] [address] Galo Monsalve M.D. [id number] MEAN CORPUSCULAR HEMOGLOBIN CONC 30.5 g/dL Low 31.0-37.0 [facility] Comment on above: Performed By: #### 4 5145 #### LAB [address] [address] Galo Monsalve M.D. [id number] Monocytes (Bld) [#/Vol] 0.34 10*3/uL Normal 0.30-0.90 [facility] Comment on above: Performed By: #### 4 5145 #### LAB [address] [address] Galo Monsalve M.D. [id number] Monocytes/100 WBC (Bld) 11.4 % Normal [facility] Comment on above: Performed By: #### 4 5145 #### LAB [address] [address] Galo Monsalve M.D. [id number] NEUTROPHILS ABSOLUTE COUNT 2.40 K/mcL Normal 1.70-7.00 [facility] Comment on above: Performed By: #### 4 5145 #### LAB [address] [address] Galo Monsalve M.D. [id number] Neutrophils/100 WBC (Bld) 80.6 % Normal [facility] Comment on above: Performed By: #### 4 5145 #### LAB [address] [address] Galo Monsalve M.D. [id number] Platelet mean volume (Bld) [Entitic vol] 10.6 fL Normal 9.4-12.4 [facility] Comment on above: Performed By: #### 4 5145 #### LAB [address] [address] Galo Monsalve M.D. [id number] Platelets (Bld) [#/Vol] 105 10*3/uL Low 150-400 [facility] Comment on above: Performed By: #### 4 5145 #### LAB [address] [address] Galo Monsalve M.D. [id number] RBC (Bld) [#/Vol] 3.87 10*6/uL Low 4.50-5.90 [facility] Comment on above: Performed By: #### 4 5145 #### LAB [address] [address] Galo Monsalve M.D. [id number] WBC (Bld) [#/Vol] 2.98 10*3/uL Low 4.50-11.00 [facility] Comment on above: Performed By: #### 4 5145 #### LAB [address] [address] Galo Monsalve M.D. [id number] CHEM 7on 08-16-2024 Anion gap [Moles/Vol] 14 mmol/L Normal 10-20 [facility] Comment on above: Order Comment: [facility] has implemented the eGFR calculation approach that does not have a coefficient for race that conforms to the NKF-ASN Task Force Recommendations. Performed By: #### 4 6953 #### LAB [address] [address] Galo Monsalve M.D. [id number] Chloride [Moles/Vol] 96 mmol/L Low 98-108 [facility] Comment on above: Order Comment: [facility] has implemented the eGFR calculation approach that does not have a coefficient for race that conforms to the NKF-ASN Task Force Recommendations. Performed By: #### 4 6953 #### LAB [address] [place], [place] [address] Galo Monsalve M.D. [id number] Creatinine [Mass/Vol] 0.80 mg/dL Normal 0.80-1.30 [facility] Comment on above: Order Comment: [facility] has implemented the eGFR calculation approach that does not have a coefficient for race that conforms to the NKF-ASN Task Force Recommendations. Performed By: #### 4 6953 #### LAB [address] [address] Galo Monsalve M.D. [id number] EGFR 88 mL/min/1.73 m2 Normal >=60 [facility] Comment on above: Order Comment: [facility] has implemented the eGFR calculation approach that does not have a coefficient for race that conforms to the NKF-ASN Task Force Recommendations. Result Comment: Yadira mated GFR was calculated using the 2020 CKD-EPI creatinine equation. Performed By: #### 4 6953 #### LAB [address] [address] Galo Monsalve M.D. [id number] Glucose [Mass/Vol] 108 mg/dL High 65-99 [facility] Comment on above: Order Comment: [facility] has implemented the eGFR calculation approach that does not have a coefficient for race that conforms to the NKF-ASN Task Force Recommendations. Performed By: #### 4 6953 #### LAB [address] [address] Galo Monsalve M.D. [id number] HCO3 (Bld) [Moles/Vol] 21 mmol/L Normal 21-32 [facility] Comment on above: Order Comment: [facility] has implemented the eGFR calculation approach that does not have a coefficient for race that conforms to the NKF-ASN Task Force Recommendations. Performed By: #### 4 6953 ####[facility] LAB [address] [address] Galo Monsalve M.D. [id number] Potassium [Moles/Vol] 4.0 mmol/L Normal 3.5-5.1 [facility] Comment on above: Order Comment: [facility] has implemented the eGFR calculation approach that does not have a coefficient for race that conforms to the NKF-ASN Task Force Recommendations. Performed By: #### 4 6953 ####[facility] LAB [address] [place], [place] [address] Galo Monsalve M.D. [id number] Sodium [Moles/Vol] 127 mmol/L Low 135-145 [facility] Comment on above: Order Comment: [facility] has implemented the eGFR calculation approach that does not have a coefficient for race that conforms to the NKF-ASN Task Force Recommendations. Performed By: #### 4 6953 #### LAB [address] [place], [place] [address] Galo Monsalve M.D. [id number] Urea nitrogen [Mass/Vol] 21 mg/dL Normal 8-25 [facility] Comment on above: Order Comment: [facility] has implemented the eGFR calculation approach that does not have a coefficient for race that conforms to the NKF-ASN Task Force Recommendations. Performed By: #### 4 6953 #### LAB [address] [place], [place] [address] Galo Monsalve M.D. [id number] Urea nitrogen/Creatinine [Mass ratio] 26.3 mg/mg High 10.0-20.0 [facility] Comment on above: Order Comment: [facility] has implemented the eGFR calculation approach that does not have a coefficient for race that conforms to the NKF-ASN Task Force Recommendations. Performed By: #### 4 6953 #### LAB [address] [place], [place] [address] Galo Monsalve M.D. [id number] COMPREHENSIVE METABOLIC PANE Vicente 08-16-2024 Albumin [Mass/Vol] 3.6 g/dL Normal 3.2-5.2 [facility] Center Comment on above: Order Comment: [facility] has implemented the eGFR calculation approach that does not have a coefficient for race that conforms to the NKF-ASN Task Force Recommendations. Performed By: #### 4 6109 #### [facility] [address] [address] Galo Monsalve M.D. [id number] ALP [Catalytic activity/Vol] 54 U/L Normal 40-150 [facility] Comment on above: Order Comment: [facility] has implemented the eGFR calculation approach that does not have a coefficient for race that conforms to the NKF-ASN Task Force Recommendations. Performed By: #### 4 6109 #### LAB [address] [address] Galo Monsalve M.D. [id number] ALT [Catalytic activity/Vol] 9 U/L Normal 0-50 U/L [facility] Comment on above: Order Comment: [facility] has implemented the eGFR calculation approach that does not have a coefficient for race that conforms to the NKF-ASN Task Force Recommendations. Performed By: #### 4 6109 #### LAB [address] [address] Galo Monsalve M.D. [id number] Anion gap [Moles/Vol] 15 mmol/L Normal 10-20 [facility] Comment on above: Order Comment: [facility] has implemented the eGFR calculation approach that does not have a coefficient for race that conforms to the NKF-ASN Task Force Recommendations. Performed By: #### 4 6109 #### LAB [address] [address] Galo Monsalve M.D. [id number] AST [Catalytic activity/Vol] 32 U/L Normal 0-50 U/L [facility] Comment on above: Order Comment: [facility] has implemented the eGFR calculation approach that does not have a coefficient for race that conforms to the NKF-ASN Task Force Recommendations. Performed By: #### 4 6109 #### LAB [address] [address] Galo Monsalve M.D. [id number] Bilirubin [Mass/Vol] 0.9 mg/dL Normal 0.0-1.3 [facility] Comment on above: Order Comment: [facility] has implemented the eGFR calculation approach that does not have a coefficient for race that conforms to the NKF-ASN Task Force Recommendations. Performed By: #### 4 6109 #### LAB [address] [address] Galo Monsalve M.D. [id number] Calcium [Mass/Vol] 8.5 mg/dL Normal 8.4-10.2 [facility] Comment on above: Order Comment: [facility] has implemented the eGFR calculation approach that does not have a coefficient for race that conforms to the NKF-ASN Task Force Recommendations. Performed By: #### 4 6109 #### LAB [address] [address] Galo Monsalve M.D. [id number] Chloride [Moles/Vol] 93 mmol/L Low 98-108 [facility] Comment on above: Order Comment: [facility] has implemented the eGFR calculation approach that does not have a coefficient for race that conforms to the NKF-ASN Task Force Recommendations. Performed By: #### 4 6109 #### LAB [address] [address] Galo Monsalve M.D. [id number] Creatinine [Mass/Vol] 0.96 mg/dL Normal 0.80-1.30 [facility] Comment on above: Order Comment: [facility] has implemented the eGFR calculation approach that does not have a coefficient for race that conforms to the NKF-ASN Task Force Recommendations. Performed By: #### 4 6109 #### LAB [address] [address] Galo Monsalve M.D. [id number] EGFR 79 mL/min/1.73 m2 Normal >=60 [facility] Comment on above: Order Comment: [facility] has implemented the eGFR calculation approach that does not have a coefficient for race that conforms to the NKF-ASN Task Force Recommendations. Result Comment: Yadira mated GFR was calculated using the 2020 CKD-EPI creatinine equation. Performed By: #### 4 6109 #### LAB [address] [address] Galo Monsalve M.D. [id number] Glucose [Mass/Vol] 98 mg/dL Normal 65-99 [facility] Comment on above: Order Comment: [facility] has implemented the eGFR calculation approach that does not have a coefficient for race that conforms to the NKF-ASN Task Force Recommendations. Performed By: #### 4 6109 #### LAB [address] [address] Galo Monsalve M.D. [id number] HCO3 (Bld) [Moles/Vol] 23 mmol/L Normal 21-32 [facility] Comment on above: Order Comment: [facility] has implemented the eGFR calculation approach that does not have a coefficient for race that conforms to the NKF-ASN Task Force Recommendations. Performed By: #### 4 6109 #### [facility] [address] [address] Galo Monsalve M.D. [id number] Potassium [Moles/Vol] 4.2 mmol/L Normal 3.5-5.1 [facility] Comment on above: Order Comment: [facility] has implemented the eGFR calculation approach that does not have a coefficient for race that conforms to the NKF-ASN Task Force Recommendations. Performed By: #### 4 6109 #### LAB [address] [address] Galo Monsalve M.D. [id number] Protein [Mass/Vol] 6.3 g/dL Normal 6.0-8.0 [facility] Comment on above: Order Comment: [facility] has implemented the eGFR calculation approach that does not have a coefficient for race that conforms to the NKF-ASN Task Force Recommendations. Performed By: #### 4 6109 #### [facility] [address] [address] Galo Monsalve M.D. [id number] Sodium [Moles/Vol] 127 mmol/L Low 135-145 [facility] Comment on above: Order Comment: [facility] has implemented the eGFR calculation approach that does not have a coefficient for race that conforms to the NKF-ASN Task Force Recommendations. Performed By: #### 4 6109 #### LAB [address] [place], [place] [address] Galo Monsalve M.D. [id number] Urea nitrogen [Mass/Vol] 21 mg/dL Normal 8-25 [facility] Comment on above: Order Comment: [facility] has implemented the eGFR calculation approach that does not have a coefficient for race that conforms to the NKF-ASN Task Force Recommendations. Performed By: #### 4 6109 #### LAB [address] [place], [place] [address] Galo Monsalve M.D. [id number] Urea nitrogen/Creatinine [Mass ratio] 21.9 mg/mg High 10.0-20.0 [facility] Comment on above: Order Comment: [facility] has implemented the eGFR calculation approach that does not have a coefficient for race that conforms to the NKF-ASN Task Force Recommendations. Performed By: #### 4 6109 #### LAB [address] [address] [id number] CT HEAD OR BRAIN WITHOUT CON TRASTon 08-16-2024 CT HEAD OR BRAIN WITHOUT CONTRAST EXAMINATION: CT HEAD OR BRAIN WITHOUT CONTRAST HISTORY: ORDERING SYSTEM PROVIDED HISTORY: Mental status change, unknown cause, TECHNOLOGIST PROVIDED HISTORY: Illness/Other Reason for exam: altered mental status, confusion, weakness Encounter Type: Initial Additional signs and symptoms: . ORDERING SYSTEM PROVIDED DIAGNOSIS CODES: I10 Hypertension, unspecified type S22.49XA Closed fracture of multiple ribs, unspecified laterality, initial encounter F10.10 Alcohol abuse E87.1 Hyponatremia S22.49XA Multiple rib fractures involving four or more ribs W19.XXXS Fall at home, sequela Y92.009 Fall at home, sequela S22.42XA Closed fracture of multiple ribs of left side, initial encounter COMPARISON: 08/16/2024 at 0255 hours and 06/07/2022 TECHNIQUE: CT examination of the head without IV contrast. Dose reduction techniques were achieved by using automated exposure control and/or adjustment of mA and/or kV according to patient size and/or use of iterative reconstruction technique. FINDINGS: No evidence of acute infarct. No acute intracranial hemorrhage or extra-axial fluid. Stable patchy hypoattenuation throughout the supratentorial white matter again nonspecific but most likely due to chronic small vessel ischemic disease. Old lacunar infarct within the right caudate body. No developing infarct. No intra-axial or extra-axial hemorrhage or fluid. Ventricular prominence is in proportion overall volume loss. No hydrocephalus. Basal cisterns are patent. Brainstem and posterior fossa remain normal. No mass or mass effect or midline shift. Intact calvarium. No fracture. No sinusitis or mastoiditis. Intracranial atherosclerotic disease noted. IMPRESSION: 1. Stable with no CT evidence of acute intracranial abnormality. 2. Stable chronic senescent changes. 3. If findings persist, MRI should be considered. Workstation ID: [id number] Dictated by: ARLETTE ARMANDO on WedAug 16, 2024 9:26:46 PM EST Transcribed by: ARLETTE ARMANDO on WedAug 16, 2024 9:26:46 PM EST Finalized by: ARLETTE ARMANDO on WedAug 16, 2024 9:26:46 PM EST Normal [facility] Comment on above: Order Comment: Injur y/Trauma or Illness?:Illness/OtherHow long have you had these symptoms (acute/chronic)?:AcuteReason for exam?:altered mental status, confusion, weaknessType of Exam?:InitialAdditional signs and symptoms?:. CT HEAD OR BRAIN WITHOUT CONTRAST EXAMINATION: CT HEAD OR BRAIN WITHOUT CONTRAST HISTORY: Mental status change, unknown cause COMPARISON: 08/12/2024 CONTRAST: None. TECHNIQUE CT Head with axial, coronal and sagittal reformats. Dose reduction techniques were achieved by using automated exposure control and/or adjustment of mA and/or kV according to patient size and/or use of iterative reconstruction technique. FINDINGS: POSTOPERATIVE CHANGES: None. INFARCTION/VASCULAR: No evidence of acute transcortical infarctions. Patchy hypoattenuation throughout the supratentorial white matter is nonspecific but most commonly associated with chronic small vessel ischemic disease. There is an old lacunar infarction within the right caudate body. HEMORRHAGE: No evidence of acute intracranial hemorrhage. MASSES: No space-occupying intracranial lesions. VENTRICLES/CSF SPACES: The ventricles, basal cisterns, and sulci are mildly enlarged. No midline shift or mass effect. SKULL/SCALP: No skull fractures or destructive osseous processes. SINUSES/MASTOIDS:The paranasal sinuses and mastoid air cells are clear. ORBITS: Unremarkable. OTHER: None. IMPRESSION: 1. No CT evidence of acute intracranial abnormalities. If symptoms persist, further assessment with MRI should be considered. 2. Chronic intracranial changes, as described above. Workstation ID: [id number] Dictated by: OVIDIO DRAPER on WedAug 16, 2024 3:08:27 AM EST Transcribed by: OVIDIO DRAPER on WedAug 16, 2024 3:08:27 AM EST Finalized by: OVIDIO DRAPER on WedAug 16, 2024 3:08:27 AM EST Normal [facility] Comment on above: Order Comment: Injur y/Trauma or Illness?:Illness/OtherHow long have you had these symptoms (acute/chronic)?:AcuteReason for exam?:lethargy, recent fall with rib fxsType of Exam?:InitialAdditional signs and symptoms?:. MAGNESIUM LEVELon 08-16-2024 Magnesium [Mass/Vol] 2.3 mg/dL Normal 1.6-2.4 [facility] Comment on above: Performed By: #### 4 6109 #### [facility] [address] [address] Galo Monsalve M.D. [id number] MORPHOLOGYon 08-16-2024 OVAL SCAN Moderate Normal [facility] Comment on above: Performed By: #### 4 5145 #### LAB [address] [address] Galo Monsalve M.D. [id number] PLATELET ESTIMATE Decreased Abnormal Normal [facility] Comment on above: Performed By: #### 4 5145 #### [facility] [address] [address] Galo Monsalve M.D. [id number] POLY SCAN Few Normal [facility] Comment on above: Performed By: #### 4 5145 #### [facility] [address] [address] Galo Monsalve M.D. [id number] RBC MORPH SCAN See Comment Normal [facility] Comment on above: Result Comment: RBC Indices confirmed with manual peripheral smear review. Performed By: #### 4 5145 #### LAB [address] [address] Galo Monsalve M.D. [id number] TARGET CELL SCAN Moderate Normal [facility] Comment on above: Performed By: #### 4 5145 #### LAB [address] [address] Galo Monsalve M.D. [id number] PHOSPHORUSon 08-16-2024 Phosphate [Mass/Vol] 3.0 mg/dL Normal 2.3-3.7 [facility] Comment on above: Performed By: #### 4 6299 #### LAB [address] [address] Galo Monsalve M.D. [id number] POC ARTERIAL BLOOD GAS PANEL -[facility] 08-16-2024 BASE EXCESS, ARTERIAL -0.4 Normal -2.0-2.0 [facility] Comment on above: Performed By: #### 4 5145 #### LAB [address] [address] Galo Monsalve M.D. [id number] HCO3 (Bld) [Moles/Vol] 23.8 mmol/L Normal 22.0-26.0 [facility] Comment on above: Performed By: #### 4 5145 #### [facility] [address] [address] Galo Monsalve M.D. [id number] Hematocrit (Bld) [Volume fraction] 29.6 % Low 41.0-53.0 [facility] Comment on above: Performed By: #### 4 5145 #### [facility] [address] [address] Galo Monsalve M.D. [id number] Hemoglobin (Bld) [Mass/Vol] 9.7 g/dL Low 13.5-17.5 [facility] Comment on above: Performed By: #### 4 5145 #### LAB [address] [address] Galo Monsalve M.D. [id number] Oxygen saturation in Blood 95.6 % Normal 92.0-99.0 [facility] Comment on above: Performed By: #### 4 5145 #### LAB [address] [address] Galo Monsalve M.D. [id number] PCO2 ARTERIAL 36.5 mm Hg Normal 35.0-45.0 [facility] Comment on above: Performed By: #### 4 5145 #### [facility] [address] [address] Galo Monsalve M.D. [id number] PH ARTERIAL 7.42 Normal 7.35-7.45 [facility] Comment on above: Performed By: #### 4 5145 #### LAB [address] [address] Galo Monsalve M.D. [id number] PO2 ARTERIAL 71 mm Hg Low 75-85 [facility] Comment on above: Performed By: #### 4 5145 #### LAB [address] [address] Galo Monsalve M.D. [id number] SPECIMEN SOURCE RADIANCE Brachial, left Normal [facility] Comment on above: Performed By: #### 4 5145 #### LAB [address] [address] Galo Monsalve M.D. [id number] POC VENOUS BLOOD GAS PANEL-P ELIN [place] 08-16-2024 BASE EXCESS, VENOUS -0.9 Normal -2.0-2.0 [facility] Comment on above: Performed By: #### 4 5145 #### LAB [address] [address] Galo Monsalve M.D. [id number] HCO3 (Bld) [Moles/Vol] 25.5 mmol/L Normal 24.0-28.0 [facility] Comment on above: Performed By: #### 4 5145 #### LAB [address] [address] Galo Monsalve M.D. [id number] Hematocrit (Bld) [Volume fraction] 28.3 % Low 41.0-53.0 [facility] Comment on above: Performed By: #### 4 5145 #### LAB [address] [id number] Galo Monsalve M.D. [id number] Hemoglobin (Bld) [Mass/Vol] 9.2 g/dL Low 13.5-17.5 [facility] Comment on above: Performed By: #### 4 5145 #### LAB [address] [address] Galo Monsalve M.D. [id number] Oxygen saturation in Blood 56.8 % Normal 40.0-70.0 [facility] Comment on above: Performed By: #### 4 5145 #### LAB [address] [address] Galo Monsalve M.D. [id number] PCO2 VENOUS 49.8 mm Hg Normal 41.0-51.0 [facility] Comment on above: Performed By: #### 4 5145 #### LAB [address] [address] Galo Monsalve M.D. [id number] PH VENOUS 7.32 Normal 7.32-7.42 [facility] Comment on above: Performed By: #### 4 5145 #### LAB [address] [address] Galo Monsalve M.D. [id number] PO2 VENOUS 35 mm Hg Normal 25-40 [facility] Comment on above: Performed By: #### 4 5145 #### LAB [address] [address] Galo Monsalve M.D. [id number] SPECIMEN SOURCE RADIANCE Not specified Normal [facility] Comment on above: Performed By: #### 4 5145 #### LAB [address] [address] Galo Monsalve M.D. [id number] TROPONINon 08-16-2024 BASELINE TROPONIN T NG/L 37 ng/L Off scale high <=22 [facility] Comment on above: Performed By: #### 4 6109 #### LAB [address] [address] Galo Monsalve M.D. [id number] TROPONIN T INTERPRETATION Possible acute cardiac injury. Normal [facility] Comment on above: Performed By: #### 4 6109 #### LAB [address] [place], [place] [address] Galo Monsalve M.D. [id number] URINALYSISon 08-16-2024 BACTERIA, URINE None Seen Normal None Seen [facility] Comment on above: Order Comment: Micro scopic examination is performed on all urinalysis samples and only positive findings are reported. The test for blood on the chemical analytic portion of urinalysis may also be positive due to hemoglobinuria and myoglobinuria and if red blood cells are present they are quantified by microscopic examination. Performed By: #### 4 5060 #### LAB [address] [place], [place] [address] Galo Monsalve M.D. [id number] BILIRUBIN, URINE Negative Normal Negative [facility] Comment on above: Order Comment: Micro scopic examination is performed on all urinalysis samples and only positive findings are reported. The test for blood on the chemical analytic portion of urinalysis may also be positive due to hemoglobinuria and myoglobinuria and if red blood cells are present they are quantified by microscopic examination. Performed By: #### 4 5060 #### LAB [address] [place], [place] [address] Galo Monsalve M.D. [id number] BLOOD, URINE Small Abnormal Negative [facility] Comment on above: Order Comment: Micro scopic examination is performed on all urinalysis samples and only positive findings are reported. The test for blood on the chemical analytic portion of urinalysis may also be positive due to hemoglobinuria and myoglobinuria and if red blood cells are present they are quantified by microscopic examination. Performed By: #### 4 5060 #### LAB [address] [place], [place] [address] Galo Monsalve M.D. [id number] Clarity (U) Clear Normal Clear [facility] Comment on above: Order Comment: Micro scopic examination is performed on all urinalysis samples and only positive findings are reported. The test for blood on the chemical analytic portion of urinalysis may also be positive due to hemoglobinuria and myoglobinuria and if red blood cells are present they are quantified by microscopic examination. Performed By: #### 4 5060 #### LAB [address] [address] Galo Monsalve M.D. [id number] Color (U) Yellow Normal Colorless, Yellow [facility] Comment on above: Order Comment: Micro scopic examination is performed on all urinalysis samples and only positive findings are reported. The test for blood on the chemical analytic portion of urinalysis may also be positive due to hemoglobinuria and myoglobinuria and if red blood cells are present they are quantified by microscopic examination. Performed By: #### 4 5060 #### LAB [address] [address] Galo Monsalve M.D. [id number] Glucose Ql (U) Negative Normal Negative, >=1000 [facility] Comment on above: Order Comment: Micro scopic examination is performed on all urinalysis samples and only positive findings are reported. The test for blood on the chemical analytic portion of urinalysis may also be positive due to hemoglobinuria and myoglobinuria and if red blood cells are present they are quantified by microscopic examination. Performed By: #### 4 5060 #### LAB [address] [address] Galo Monsalve M.D. [id number] Ketones Ql (U) 20 mg/dL Abnormal Negative [facility] Comment on above: Order Comment: Micro scopic examination is performed on all urinalysis samples and only positive findings are reported. The test for blood on the chemical analytic portion of urinalysis may also be positive due to hemoglobinuria and myoglobinuria and if red blood cells are present they are quantified by microscopic examination. Performed By: #### 4 5060 #### LAB [address] [address] Galo Monsalve M.D. [id number] Leukocyte esterase Test strip Ql (U) Negative Normal Negative [facility] Comment on above: Order Comment: Micro scopic examination is performed on all urinalysis samples and only positive findings are reported. The test for blood on the chemical analytic portion of urinalysis may also be positive due to hemoglobinuria and myoglobinuria and if red blood cells are present they are quantified by microscopic examination. Performed By: #### 4 5060 #### [facility] [address] [place], [place] [address] Galo Monsalve M.D. [id number] MUCUS, URINE Rare Normal None Seen, Rare [facility] Comment on above: Order Comment: Micro scopic examination is performed on all urinalysis samples and only positive findings are reported. The test for blood on the chemical analytic portion of urinalysis may also be positive due to hemoglobinuria and myoglobinuria and if red blood cells are present they are quantified by microscopic examination. Performed By: #### 4 5060 #### [facility] [address] [place], [place] [address] Galo Monsalve M.D. [id number] NITRITE, URINE Negative Normal Negative [facility] Comment on above: Order Comment: Micro scopic examination is performed on all urinalysis samples and only positive findings are reported. The test for blood on the chemical analytic portion of urinalysis may also be positive due to hemoglobinuria and myoglobinuria and if red blood cells are present they are quantified by microscopic examination. Performed By: #### 4 5060 #### LAB [address] [place], [place] [address] Galo Monsalve M.D. [id number] pH (U) 5.5 [pH] Normal 5.0-7.0 [facility] Comment on above: Order Comment: Micro scopic examination is performed on all urinalysis samples and only positive findings are reported. The test for blood on the chemical analytic portion of urinalysis may also be positive due to hemoglobinuria and myoglobinuria and if red blood cells are present they are quantified by microscopic examination. Performed By: #### 4 5060 #### LAB [address] [place], [place] [address] Galo Monsalve M.D. [id number] Protein (U) [Mass/Vol] 30 mg/dL Abnormal Negative [facility] Comment on above: Order Comment: Micro scopic examination is performed on all urinalysis samples and only positive findings are reported. The test for blood on the chemical analytic portion of urinalysis may also be positive due to hemoglobinuria and myoglobinuria and if red blood cells are present they are quantified by microscopic examination. Result Comment: Fals e positive results may occur in urines with large amounts of hemoglobin, pH greater than 8.0, contrast medium, or disinfectants including ammonium compounds. Performed By: #### 4 5060 #### LAB [address] [address] Galo Monsalve M.D. [id number] RBC LM.HPF (Urine sed) [#/Area] 28 /[HPF] High 0-3 [facility] Comment on above: Order Comment: Micro scopic examination is performed on all urinalysis samples and only positive findings are reported. The test for blood on the chemical analytic portion of urinalysis may also be positive due to hemoglobinuria and myoglobinuria and if red blood cells are present they are quantified by microscopic examination. Performed By: #### 4 5060 #### [facility] [address] [place] [address] Galo Monsalve M.D. [id number] Specific gravity (U) [Rel density] 1.031 High 1.005-1.025 [facility] Comment on above: Order Comment: Micro scopic examination is performed on all urinalysis samples and only positive findings are reported. The test for blood on the chemical analytic portion of urinalysis may also be positive due to hemoglobinuria and myoglobinuria and if red blood cells are present they are quantified by microscopic examination. Performed By: #### 4 5060 #### [facility] [address] [place] [address] Galo Monsalve M.D. [id number] SQUAMOUS EPITHELIAL < Normal 0-4 [facility] Comment on above: Order Comment: Micro scopic examination is performed on all urinalysis samples and only positive findings are reported. The test for blood on the chemical analytic portion of urinalysis may also be positive due to hemoglobinuria and myoglobinuria and if red blood cells are present they are quantified by microscopic examination. Performed By: #### 4 5060 #### [facility] [address] [place] [address] Galo Monsalve M.D. [id number] UROBILINOGEN, URINE <2.0 Normal <2.0 [facility] Comment on above: Order Comment: Micro scopic examination is performed on all urinalysis samples and only positive findings are reported. The test for blood on the chemical analytic portion of urinalysis may also be positive due to hemoglobinuria and myoglobinuria and if red blood cells are present they are quantified by microscopic examination. Performed By: #### 4 5060 #### LAB [address] [address] Galo Monsalve M.D. [id number] WBC LM.HPF (Urine sed) [#/Area] 4 /[HPF] Normal 0-5 [facility] Comment on above: Order Comment: Micro scopic examination is performed on all urinalysis samples and only positive findings are reported. The test for blood on the chemical analytic portion of urinalysis may also be positive due to hemoglobinuria and myoglobinuria and if red blood cells are present they are quantified by microscopic examination. Performed By: #### 4 5060 #### LAB [address] [address] Galo Monsalve M.D. [id number] AMMONIAon 08-15-2024 AMMONIA 34 micromol/L Normal 12-47 [facility] Comment on above: Performed By: #### 4 5060 #### [facility] [address] [place] [address] Galo Monsalve M.D. [id number] CBC WITH AUTO DIFFERENTIALon 08-15-2024 AUTO NRBC 0.0 % Normal [facility] Comment on above: Performed By: #### 4 5145 #### [facility] [address] [address] Galo Monsalve M.D. [id number] AUTO NRBC ABS COUNT 0.00 K/mcL Normal 0.00-0.00 [facility] Comment on above: Performed By: #### 4 5145 #### LAB [address] [place] [address] Galo Monsalve M.D. [id number] Erythrocyte distribution width (RBC) [Ratio] 18.7 % High 11.6-14.8 [facility] Comment on above: Performed By: #### 4 5145 #### LAB [address] [address] Galo Monsalve M.D. [id number] Hematocrit (Bld) [Volume fraction] 30.6 % Low 41.0-53.0 [facility] Comment on above: Performed By: #### 4 5145 #### LAB [address] [address] Galo Monsalve M.D. [id number] Hemoglobin (Bld) [Mass/Vol] 9.4 g/dL Low 13.5-17.5 [facility] Comment on above: Performed By: #### 4 5145 #### LAB [address] [address] Galo Monsalve M.D. [id number] MCH (RBC) [Entitic mass] 24.8 pg Low 26.0-34.0 [facility] Comment on above: Performed By: #### 4 5145 #### LAB [address] [address] Galo Monsalve M.D. [id number] MCV (RBC) [Entitic vol] 80.7 fL Normal 80.0-100.0 [facility] Comment on above: Performed By: #### 4 5145 #### LAB [address] [address] Galo Monsalve M.D. [id number] MEAN CORPUSCULAR HEMOGLOBIN CONC 30.7 g/dL Low 31.0-37.0 [facility] Comment on above: Performed By: #### 4 5145 #### LAB [address] [address] Galo Monsalve M.D. [id number] Platelet mean volume (Bld) [Entitic vol] 9.7 fL Normal 9.4-12.4 [facility] Comment on above: Performed By: #### 4 5145 #### [facility] [address] [address] Galo Monsalve M.D. [id number] Platelets (Bld) [#/Vol] 98 10*3/uL Low 150-400 [facility] Comment on above: Performed By: #### 4 5145 #### LAB [address] [address] Galo Monsalve M.D. [id number] RBC (Bld) [#/Vol] 3.79 10*6/uL Low 4.50-5.90 [facility] Comment on above: Performed By: #### 4 5145 #### LAB [address] [address] Galo Monsalve M.D. [id number] WBC (Bld) [#/Vol] 2.61 10*3/uL Low 4.50-11.00 [facility] Comment on above: Performed By: #### 4 5145 #### LAB [address] [address] Galo Monsalve M.D. [id number] COMPREHENSIVE METABOLIC PANE [facility] 08-15-2024 Albumin [Mass/Vol] 3.8 g/dL Normal 3.2-5.2 [facility] Comment on above: Order Comment: [facility] has implemented the eGFR calculation approach that does not have a coefficient for race that conforms to the NKF-ASN Task Force Recommendations. Performed By: #### 4 6126 #### LAB [address] [address] Galo Monsalve M.D. [id number] ALP [Catalytic activity/Vol] 54 U/L Normal 40-150 [facility] Comment on above: Order Comment: [facility] has implemented the eGFR calculation approach that does not have a coefficient for race that conforms to the NKF-ASN Task Force Recommendations. Performed By: #### 4 6126 #### LAB [address] [address] Galo Monsalve M.D. [id number] ALT [Catalytic activity/Vol] 8 U/L Normal 0-50 U/L [facility] Comment on above: Order Comment: [facility] has implemented the eGFR calculation approach that does not have a coefficient for race that conforms to the NKF-ASN Task Force Recommendations. Performed By: #### 4 6126 #### LAB [address] [id number] Galo Monsalve M.D. [id number] Anion gap [Moles/Vol] 14 mmol/L Normal 10-20 [facility] Comment on above: Order Comment: [facility] has implemented the eGFR calculation approach that does not have a coefficient for race that conforms to the NKF-ASN Task Force Recommendations. Performed By: #### 4 6126 #### LAB [address] [address] Galo Monsalve M.D. [id number] AST [Catalytic activity/Vol] 24 U/L Normal 0-50 U/L [facility] Comment on above: Order Comment: [facility] has implemented the eGFR calculation approach that does not have a coefficient for race that conforms to the NKF-ASN Task Force Recommendations. Performed By: #### 4 6126 #### LAB [address] [address] Galo Monsalve M.D. [id number] Bilirubin [Mass/Vol] 1.0 mg/dL Normal 0.0-1.3 [facility] Comment on above: Order Comment: [facility] has implemented the eGFR calculation approach that does not have a coefficient for race that conforms to the NKF-ASN Task Force Recommendations. Performed By: #### 4 6126 #### LAB [address] [address] Galo Monsalve M.D. [id number] Calcium [Mass/Vol] 8.7 mg/dL Normal 8.4-10.2 [facility] Comment on above: Order Comment: [facility] has implemented the eGFR calculation approach that does not have a coefficient for race that conforms to the NKF-ASN Task Force Recommendations. Performed By: #### 4 6126 #### LAB [address] [address] Galo Monsalve M.D. [id number] Chloride [Moles/Vol] 92 mmol/L Low 98-108 [facility] Comment on above: Order Comment: [facility] has implemented the eGFR calculation approach that does not have a coefficient for race that conforms to the NKF-ASN Task Force Recommendations. Performed By: #### 4 6126 #### LAB [address] [place], [place] [address] Galo Monsalve M.D. [id number] Creatinine [Mass/Vol] 1.05 mg/dL Normal 0.80-1.30 [facility] Comment on above: Order Comment: [facility] has implemented the eGFR calculation approach that does not have a coefficient for race that conforms to the NKF-ASN Task Force Recommendations. Performed By: #### 4 6126 #### LAB [address] [place], [place] [address] Galo Monsalve M.D. [id number] EGFR 71 mL/min/1.73 m2 Normal >=60 [facility] Comment on above: Order Comment: [facility] has implemented the eGFR calculation approach that does not have a coefficient for race that conforms to the NKF-ASN Task Force Recommendations. Result Comment: Yadira mated GFR was calculated using the 2020 CKD-EPI creatinine equation. Performed By: #### 4 6126 #### LAB [address] [place], [place] [address] Galo Monsalve M.D. [id number] Glucose [Mass/Vol] 123 mg/dL High 65-99 [facility] Comment on above: Order Comment: [facility] has implemented the eGFR calculation approach that does not have a coefficient for race that conforms to the NKF-ASN Task Force Recommendations. Performed By: #### 4 6178 #### LAB [address] [id number] Galo Monsalve M.D. [id number] HCO3 (Bld) [Moles/Vol] 23 mmol/L Normal 21-32 [facility] Comment on above: Order Comment: [facility] has implemented the eGFR calculation approach that does not have a coefficient for race that conforms to the NKF-ASN Task Force Recommendations. Performed By: #### 4 6126 #### LAB [address] [id number] Galo Monsalve M.D. [id number] Potassium [Moles/Vol] 4.6 mmol/L Normal 3.5-5.1 [facility] Comment on above: Order Comment: [facility] has implemented the eGFR calculation approach that does not have a coefficient for race that conforms to the NKF-ASN Task Force Recommendations. Performed By: #### 4 6126 #### LAB [address] [address] Galo Monsalve M.D. [id number] Protein [Mass/Vol] 6.5 g/dL Normal 6.0-8.0 [facility] Comment on above: Order Comment: [facility] has implemented the eGFR calculation approach that does not have a coefficient for race that conforms to the NKF-ASN Task Force Recommendations. Performed By: #### 4 6126 #### LAB [address] [address] Galo Monsalve M.D. [id number] Sodium [Moles/Vol] 124 mmol/L Low 135-145 [facility] Comment on above: Order Comment: [facility] has implemented the eGFR calculation approach that does not have a coefficient for race that conforms to the NKF-ASN Task Force Recommendations. Performed By: #### 4 6126 #### LAB [address] [address] Galo Monsalve M.D. [id number] Urea nitrogen [Mass/Vol] 20 mg/dL Normal 8-25 [facility] Comment on above: Order Comment: [facility] has implemented the eGFR calculation approach that does not have a coefficient for race that conforms to the NKF-ASN Task Force Recommendations. Performed By: #### 4 6126 #### LAB [address] [address] Galo Monsalve M.D. [id number] Urea nitrogen/Creatinine [Mass ratio] 19.0 mg/mg Normal 10.0-20.0 [facility] Comment on above: Order Comment: [facility] has implemented the eGFR calculation approach that does not have a coefficient for race that conforms to the NKF-ASN Task Force Recommendations. Performed By: #### 4 6126 #### LAB [address] [address] Galo Monsalve M.D. [id number] LACTIC ACID, PLASMAon 2024 LACTIC ACID, PLASMA 2.2 mmol/L High 0.6-2.0 [facility] Comment on above: Performed By: #### 4 6109 #### LAB [address] [address] Galo Monsalve M.D. [id number] MAGNESIUM LEVELon 08-15-2024 Magnesium [Mass/Vol] 2.0 mg/dL Normal 1.6-2.4 [facility] Comment on above: Performed By: #### 4 6109 #### LAB [address] [address] Galo Monsalve M.D. [id number] MANUAL DIFFERENTIALon 2024 BASOPHILS - ABS (DIFF) 0.02 K/mcL Normal 0.00-0.30 [facility] Comment on above: Performed By: #### 4 5145 #### LAB [address] [address] Galo Monsalve M.D. [id number] BASOPHILS - REL (DIFF) 0.8 % Normal [facility] Comment on above: Performed By: #### 4 5145 #### LAB [address] [address] Galo Monsalve M.D. [id number] EOSINOPHILS - ABS (DIFF) 0.00 K/mcL Normal 0.00-0.50 [facility] Comment on above: Performed By: #### 4 5145 #### LAB [address] [place] [address] Galo Monsalve M.D. [id number] EOSINOPHILS - REL (DIFF) 0.0 % Normal [facility] Comment on above: Performed By: #### 4 5145 #### LAB [address] [address] Galo Monsalve M.D. [id number] LYMPHOCYTE ATYPICAL - REL (DIFF) 0.9 % [facility] Comment on above: Performed By: #### 4 5145 #### LAB [address] [place] [address] Galo Monsalve M.D. [id number] LYMPHOCYTES - ABS (DIFF) 0.02 K/mcL Low 0.90-4.00 [facility] Comment on above: Performed By: #### 4 5145 #### LAB [address] [address] Galo Monsalve M.D. [id number] LYMPHOCYTES - REL (DIFF) 0.0 % [facility] Comment on above: Performed By: #### 4 5145 #### LAB [address] [place] [address] Galo Monsalve M.D. [id number] MONOCYTES - ABS (DIFF) 0.16 K/mcL Low 0.30-0.90 [facility] Comment on above: Performed By: #### 4 5145 #### LAB [address] [place] [address] Galo Monsalve M.D. [id number] MONOCYTES - REL (DIFF) 6.1 % Normal [facility] Comment on above: Performed By: #### 4 5145 #### LAB [address] [place] [address] Galo Monsalve M.D. [id number] NEUTROPHILS - ABS (DIFF) 2.41 K/mcL Normal 1.70-7.00 [facility] Comment on above: Performed By: #### 4 5145 #### LAB [address] [place] [address] Galo Monsalve M.D. [id number] NEUTROPHILS - REL (DIFF) 92.2 % [facility] Comment on above: Performed By: #### 4 5145 #### LAB [address] [place] [address] Galo Monsalve M.D. [id number] MORPHOLOGYon 08-15-2024 OVAL SCAN Moderate Normal [facility] Comment on above: Performed By: #### 4 5145 #### LAB [address] [address] Galo Monsalve M.D. [id number] PLATELET ESTIMATE Decreased Abnormal Normal [facility] Comment on above: Performed By: #### 4 5145 #### LAB [address] [address] Galo Monsalve M.D. [id number] PLATELETS LARGE Few Normal [facility] Comment on above: Performed By: #### 4 5145 #### LAB [address] [address] Galo Monsalve M.D. [id number] POLY SCAN Few Normal [facility] Comment on above: Performed By: #### 4 5145 #### LAB [address] [address] Galo Monsalve M.D. [id number] RBC MORPH SCAN See Comment Normal [facility] Comment on above: Result Comment: RBC Indices confirmed with manual peripheral smear review. Performed By: #### 4 5145 #### LAB [address] [address] Galo Monsalve M.D. [id number] PHOSPHORUSon 08-15-2024 Phosphate [Mass/Vol] 2.8 mg/dL Normal 2.3-3.7 [facility] Comment on above: Performed By: #### 4 6109 #### [facility] [address] [address] Galo Monsalve M.D. [id number] PROCALCITONINon 08-15-2024 PROCALCITONIN 0.72 ng/ml High <0.50 [facility] Comment on above: Order Comment: Resul ts of 0.50 and 2.00 ng/ml are indeterminate and should be repeated within 6-24 hours. Performed By: #### 4 6109 #### LAB [address] [address] Galo Monsalve M.D. [id number] REFLEX LACTIC ACID, PLASMAon 08-15-2024 LACTIC ACID, PLASMA 0.7 mmol/L Normal 0.6-2.0 [facility] Comment on above: Performed By: #### 4 6109 #### LAB [address] [place], [place] [address] Galo Monsalve M.D. [id number] RESPIRATORY PCR PANELon 08-02 RESPIRATORY PCR PANEL INFLUENZA A FILMAR RAY Not Detected INFLUENZA B FILM ARRAY Not Detected PARAINFLUENZA VIRUS 1 Not Detected PARAINFLUENZA VIRUS 2 Not Detected PARAINFLUENZA VIRUS 3 Not Detected PARAINFLUENZA VIRUS 4 Not Detected RESPIRATORY SYNCYTIAL VIRUS FILM ARRAY Not Detected HUMAN METAPNEUMOVIRUS Not Detected HUMAN RHINOVIRUS/ENTEROVIRUS Not Detected ADENOVIRUS FILM ARRAY Not Detected CORONAVIRUS 229E Not Detected CORONAVIRUS HKU1 Not Detected CORONAVIRUS NL63 Not Detected CORONAVIRUS OC43 Not Detected BORDETELLA PARAPERTUSSIS Not Detected BORDETELLA PERTUSSIS Not Detected MYCOPLASMA PNEUMONIAE Not Detected CHLAMYDIA PNEUMONIAE Not Detected SARS-COV-2 (BIOFIRE) Not Detected Normal Not Detected [facility] Comment on above: Performed By: #### 4 6608 #### [facility] [address] [place], [place] [address] Galo Monsalve M.D. [id number] XR CHEST PA/APon 08-15-2024 XR CHEST PA/AP EXAMINATION: XR CHEST PA/AP 08/15/2024 8:22 AM HISTORY: ORDERING SYSTEM PROVIDED HISTORY: cough, TECHNOLOGIST PROVIDED HISTORY: Illness/Other Reason for exam: Cough, Left-sided rib pain s/p fx fall Cancer History: u Surgery, RadiationHistory: u Encounter Type: Subsequent/Follow-up Additional signs and symptoms: . ORDERING SYSTEM PROVIDED DIAGNOSIS CODES: I10 Hypertension, unspecified type S22.49XA Closed fracture of multiple ribs, unspecified laterality, initial encounter F10.10 Alcohol abuse E87.1 Hyponatremia S22.49XA Multiple rib fractures involving four or more ribs W19.XXXS Fall at home, sequela Y92.009 Fall at home, sequela S22.42XA Closed fracture of multiple ribs of left side, initial encounter COMPARISON: Chest x-ray, 08/14/2024. FINDINGS: Single view of the chest was obtained. Heart size normal. There is a small to moderate-sized pleural effusion on the right that is mildly improved. There is atelectasis at the right lung base. No pleural effusion on the left. No pneumothorax. IMPRESSION: 1. Small to moderate-sized pleural effusion on the right, mildly improved. 2. There is atelectasis in the right mid and lower lung [place] that is similar to the prior. 3. Left lung clear. 4. No pneumothorax. [employer] Workstation ID: [id number] Dictated by: ADRIÁN PASTOR on WedAug 15, 2024 8:46:00 AM EST Transcribed by: JOSE E FREEMAN on WedAug 15, 2024 8:53:17 AM EST Finalized by: ADRIÁN PASTOR on WedAug 15, 2024 3:40:05 PM EST Normal [facility] Comment on above: Order Comment: Injur y/Trauma or Illness?:Illness/OtherHow long have you had these symptoms (acute/chronic)?:AcuteReason for exam?:Cough, Left sided rib pain s/p fx fallHistory of cancer?:uSurgeries, chemotherapy, or radiation?:uType of Exam?:Subsequent/Follow-upAdditional signs and symptoms?:. CBC WITH AUTO DIFFERENTIALon 08-14-2024 AUTO NRBC 0.0 % Normal [facility] Comment on above: Performed By: #### 4 5060 #### LAB [address] [address] Galo Monsalve M.D. [id number] AUTO NRBC ABS COUNT 0.00 K/mcL Normal 0.00-0.00 [facility] Comment on above: Performed By: #### 4 5060 #### [facility] [address] [place], [place] [address] Galo Monsalve M.D. [id number] BASOPHILS ABSOLUTE COUNT 0.01 K/mcL Normal 0.00-0.30 [facility] Comment on above: Performed By: #### 4 5060 #### LAB [address] [id number] Galo Monsalve M.D. [id number] Basophils/100 WBC (Bld) 0.3 % Normal [facility] Comment on above: Performed By: #### 4 5060 #### LAB [address] [address] Galo Monsalve M.D. [id number] Eosinophils (Bld) [#/Vol] 0.00 10*3/uL Normal 0.00-0.50 [facility] Comment on above: Performed By: #### 4 5060 #### LAB [address] [address] Galo Monsalve M.D. [id number] Eosinophils/100 WBC (Bld) 0.0 % [facility] Comment on above: Performed By: #### 4 5060 #### LAB [address] [address] Galo Monsalve M.D. [id number] Erythrocyte distribution width (RBC) [Ratio] 18.5 % High 11.6-14.8 [facility] Comment on above: Performed By: #### 4 5060 #### LAB [address] [address] Galo Monsalve M.D. [id number] Hematocrit (Bld) [Volume fraction] 27.1 % Low 41.0-53.0 [facility] Comment on above: Performed By: #### 4 5060 #### LAB [address] [address] Galo Monsalve M.D. [id number] Hemoglobin (Bld) [Mass/Vol] 8.4 g/dL Low 13.5-17.5 [facility] Comment on above: Performed By: #### 4 5060 #### LAB [address] [address] aGlo Monsalve M.D. [id number] IG ABSOLUTE 0.02 K/mcL Normal 0.00-0.30 [facility] Comment on above: Performed By: #### 4 5060 #### LAB [address] [place] [address] Galo Monsalve M.D. [id number] IG PERCENT 0.60 % [facility] Comment on above: Result Comment: The IG parameter is the percentage of metamyelocytes, myelocytes and promyelocytes. An immature granulocyte count (IG) of 1% or more suggests the possibility of infection, an IG count of 3% is very likely related to an infection. Performed By: #### 4 5060 #### LAB [address] [place] [address] Galo Monsalve M.D. [id number] Lymphocytes (Bld) [#/Vol] 0.08 10*3/uL Low 0.90-4.00 [facility] Comment on above: Performed By: #### 4 5060 #### LAB [address] [address] Galo Monsalve M.D. [id number] Lymphocytes/100 WBC (Bld) 2.5 % Normal [facility] Comment on above: Performed By: #### 4 5060 #### LAB [address] [place] [address] Galo Monsalve M.D. [id number] MCH (RBC) [Entitic mass] 24.7 pg Low 26.0-34.0 [facility] Comment on above: Performed By: #### 4 5060 #### LAB [address] [address] Galo Monsalve M.D. [id number] MCV (RBC) [Entitic vol] 79.7 fL Low 80.0-100.0 [facility] Comment on above: Performed By: #### 4 5060 #### LAB [address] [place] [address] Galo Monsalve M.D. [id number] MEAN CORPUSCULAR HEMOGLOBIN CONC 31.0 g/dL Normal 31.0-37.0 [facility] Comment on above: Performed By: #### 4 5060 #### LAB [address] [place] [address] Galo Monsalve M.D. [id number] Monocytes (Bld) [#/Vol] 0.27 10*3/uL Low 0.30-0.90 [facility] Comment on above: Performed By: #### 4 5060 #### LAB [address] [address] Galo Monsalve M.D. [id number] Monocytes/100 WBC (Bld) 8.4 % Normal [facility] Comment on above: Performed By: #### 4 5060 #### LAB [address] [address] Galo Monsalve M.D. [id number] NEUTROPHILS ABSOLUTE COUNT 2.82 K/mcL Normal 1.70-7.00 [facility] Comment on above: Performed By: #### 4 5060 #### LAB [address] [address] Galo Monsalve M.D. [id number] Neutrophils/100 WBC (Bld) 88.2 % Normal [facility] Comment on above: Performed By: #### 4 5060 #### LAB [address] [address] Galo Monsalve M.D. [id number] Platelet mean volume (Bld) [Entitic vol] 9.0 fL Low 9.4-12.4 [facility] Comment on above: Performed By: #### 4 5060 #### LAB [address] [address] Galo Monsalve M.D. [id number] Platelets (Bld) [#/Vol] 100 10*3/uL Low 150-400 [facility] Comment on above: Performed By: #### 4 5060 #### LAB [address] [address] Galo Monsalve M.D. [id number] RBC (Bld) [#/Vol] 3.40 10*6/uL Low 4.50-5.90 [facility] Comment on above: Performed By: #### 4 5060 #### LAB [address] [address] Galo Monsalve M.D. [id number] WBC (Bld) [#/Vol] 3.20 10*3/uL Low 4.50-11.00 [facility] Comment on above: Performed By: #### 4 5060 #### LAB [address] [address] Galo Monsalve M.D. [id number] AUTO NRBC 0.0 % Normal [facility] Comment on above: Performed By: #### 4 5060 #### LAB [address] [address] Galo Monsalve M.D. [id number] AUTO NRBC ABS COUNT 0.00 K/mcL Normal 0.00-0.00 [facility] Comment on above: Performed By: #### 4 5060 #### LAB [address] [address] Galo Monsalve M.D. [id number] BASOPHILS ABSOLUTE COUNT 0.02 K/mcL Normal 0.00-0.30 [facility] Comment on above: Performed By: #### 4 5060 #### LAB [address] [address] Galo Monsalve M.D. [id number] Basophils/100 WBC (Bld) 0.5 % Normal [facility] Comment on above: Performed By: #### 4 5060 #### LAB [address] [place] [address] Galo Monsalve M.D. [id number] Eosinophils (Bld) [#/Vol] 0.02 10*3/uL Normal 0.00-0.50 [facility] Comment on above: Performed By: #### 4 5060 #### LAB [address] [address] Galo Monsalve M.D. [id number] Eosinophils/100 WBC (Bld) 0.5 % Normal [facility] Comment on above: Performed By: #### 4 5060 #### LAB [address] [address] Galo Monsalve M.D. [id number] Erythrocyte distribution width (RBC) [Ratio] 18.6 % High 11.6-14.8 [facility] Comment on above: Performed By: #### 4 5060 #### LAB [address] [address] Galo Monsalve M.D. [id number] Hematocrit (Bld) [Volume fraction] 29.3 % Low 41.0-53.0 [facility] Comment on above: Performed By: #### 4 5060 #### LAB [address] [address] Galo Monsalve M.D. [id number] Hemoglobin (Bld) [Mass/Vol] 8.9 g/dL Low 13.5-17.5 [facility] Comment on above: Performed By: #### 4 5060 #### LAB [address] [address] Galo Monsalve M.D. [id number] IG ABSOLUTE 0.03 K/mcL Normal 0.00-0.30 [facility] Comment on above: Performed By: #### 4 5060 #### LAB [address] [address] Galo Monsalve M.D. [id number] IG PERCENT 0.80 % [facility] Comment on above: Result Comment: The IG parameter is the percentage of metamyelocytes, myelocytes and promyelocytes. An immature granulocyte count (IG) of 1% or more suggests the possibility of infection, an IG count of 3% is very likely related to an infection. Performed By: #### 4 5060 #### LAB [address] [address] Galo Monsalve M.D. [id number] Lymphocytes (Bld) [#/Vol] 0.12 10*3/uL Low 0.90-4.00 [facility] Comment on above: Performed By: #### 4 5060 #### LAB [address] [address] Galo Monsalve M.D. [id number] Lymphocytes/100 WBC (Bld) 3.1 % [facility] Comment on above: Performed By: #### 4 5060 #### LAB [address] [place] [address] Galo Monsalve M.D. [id number] MCH (RBC) [Entitic mass] 24.8 pg Low 26.0-34.0 [facility] Comment on above: Performed By: #### 4 5060 #### LAB [address] [address] Galo Monsalve M.D. [id number] MCV (RBC) [Entitic vol] 81.6 fL Normal 80.0-100.0 [facility] Comment on above: Performed By: #### 4 5060 #### LAB [address] [address] Galo Monsalve M.D. [id number] MEAN CORPUSCULAR HEMOGLOBIN CONC 30.4 g/dL Low 31.0-37.0 [facility] Comment on above: Performed By: #### 4 5060 #### [facility] [address] [address] Galo Monsalve M.D. [id number] Monocytes (Bld) [#/Vol] 0.42 10*3/uL Normal 0.30-0.90 [facility] Comment on above: Performed By: #### 4 5060 #### [facility] [address] [address] Galo Monsalve M.D. [id number] Monocytes/100 WBC (Bld) 11.0 % Normal [facility] Comment on above: Performed By: #### 4 5060 #### LAB [address] [address] Galo Monsalve M.D. [id number] NEUTROPHILS ABSOLUTE COUNT 3.22 K/mcL Normal 1.70-7.00 [facility] Comment on above: Performed By: #### 4 5060 #### LAB [address] [address] Galo Monsalve M.D. [id number] Neutrophils/100 WBC (Bld) 84.1 % Normal [facility] Comment on above: Performed By: #### 4 5060 #### [facility] [address] [address] Galo Monsalve M.D. [id number] Platelet mean volume (Bld) [Entitic vol] 9.5 fL Normal 9.4-12.4 [facility] Comment on above: Performed By: #### 4 5060 #### LAB [address] [address] Galo Monsalve M.D. [id number] Platelets (Bld) [#/Vol] 109 10*3/uL Low 150-400 [facility] Comment on above: Performed By: #### 4 5060 #### LAB [address] [address] Galo Monsalve M.D. [id number] RBC (Bld) [#/Vol] 3.59 10*6/uL Low 4.50-5.90 [facility] Comment on above: Performed By: #### 4 5060 #### LAB [address] [address] Galo Monsalve M.D. [id number] WBC (Bld) [#/Vol] 3.83 10*3/uL Low 4.50-11.00 [facility] Comment on above: Performed By: #### 4 5060 #### LAB [address] [address] Galo Monsalve M.D. [id number] COMPREHENSIVE METABOLIC PANE Vicente 08-14-2024 Albumin [Mass/Vol] 3.5 g/dL Normal 3.2-5.2 [facility] Comment on above: Order Comment: [facility] has implemented the eGFR calculation approach that does not have a coefficient for race that conforms to the NKF-ASN Task Force Recommendations. Performed By: #### 4 6109 #### LAB [address] [address] Galo Monsalve M.D. [id number] ALP [Catalytic activity/Vol] 47 U/L Normal 40-150 [facility] Comment on above: Order Comment: [facility] has implemented the eGFR calculation approach that does not have a coefficient for race that conforms to the NKF-ASN Task Force Recommendations. Performed By: #### 4 6109 #### LAB [address] [address] Galo Monsalve M.D. [id number] ALT [Catalytic activity/Vol] 7 U/L Normal 0-50 U/L [facility] Comment on above: Order Comment: [facility] has implemented the eGFR calculation approach that does not have a coefficient for race that conforms to the NKF-ASN Task Force Recommendations. Performed By: #### 4 6109 #### LAB [address] [address] Galo Monsalve M.D. [id number] Anion gap [Moles/Vol] 13 mmol/L Normal 10-20 [facility] Comment on above: Order Comment: [facility] has implemented the eGFR calculation approach that does not have a coefficient for race that conforms to the NKF-ASN Task Force Recommendations. Performed By: #### 4 6109 #### LAB [address] [address] Galo Monsalve M.D. [id number] AST [Catalytic activity/Vol] 21 U/L Normal 0-50 U/L [facility] Comment on above: Order Comment: [facility] has implemented the eGFR calculation approach that does not have a coefficient for race that conforms to the NKF-ASN Task Force Recommendations. Performed By: #### 4 6109 #### LAB [address] [address] Galo Monsalve M.D. [id number] Bilirubin [Mass/Vol] 0.8 mg/dL Normal 0.0-1.3 [facility] Comment on above: Order Comment: [facility] has implemented the eGFR calculation approach that does not have a coefficient for race that conforms to the NKF-ASN Task Force Recommendations. Performed By: #### 4 6109 #### LAB [address] [address] Galo Monsalve M.D. [id number] Calcium [Mass/Vol] 8.3 mg/dL Low 8.4-10.2 [facility] Comment on above: Order Comment: [facility] has implemented the eGFR calculation approach that does not have a coefficient for race that conforms to the NKF-ASN Task Force Recommendations. Performed By: #### 4 6109 #### LAB [address] [id number] Galo Monsalve M.D. [id number] Chloride [Moles/Vol] 92 mmol/L Low 98-108 [facility] Comment on above: Order Comment: [facility] has implemented the eGFR calculation approach that does not have a coefficient for race that conforms to the NKF-ASN Task Force Recommendations. Performed By: #### 4 6109 #### LAB [address] [address] Galo Monsalve M.D. [id number] Creatinine [Mass/Vol] 0.98 mg/dL Normal 0.80-1.30 [facility] Comment on above: Order Comment: [facility] has implemented the eGFR calculation approach that does not have a coefficient for race that conforms to the NKF-ASN Task Force Recommendations. Performed By: #### 4 6109 #### LAB [address] [address] Galo Monsalve M.D. [id number] EGFR 77 mL/min/1.73 m2 Normal >=60 [facility] Comment on above: Order Comment: [facility] has implemented the eGFR calculation approach that does not have a coefficient for race that conforms to the NKF-ASN Task Force Recommendations. Result Comment: Yadira mated GFR was calculated using the 2020 CKD-EPI creatinine equation. Performed By: #### 4 6109 #### [facility] [address] [address] Galo Monsalve M.D. [id number] Glucose [Mass/Vol] 139 mg/dL High 65-99 [facility] Comment on above: Order Comment: [facility] has implemented the eGFR calculation approach that does not have a coefficient for race that conforms to the NKF-ASN Task Force Recommendations. Performed By: #### 4 6109 #### LAB [address] [address] Galo Monsalve M.D. [id number] HCO3 (Bld) [Moles/Vol] 22 mmol/L Normal 21-32 [facility] Comment on above: Order Comment: [facility] has implemented the eGFR calculation approach that does not have a coefficient for race that conforms to the NKF-ASN Task Force Recommendations. Performed By: #### 4 6109 #### LAB [address] [address] Galo Monsalve M.D. [id number] Potassium [Moles/Vol] 4.3 mmol/L Normal 3.5-5.1 [facility] Comment on above: Order Comment: [facility] has implemented the eGFR calculation approach that does not have a coefficient for race that conforms to the NKF-ASN Task Force Recommendations. Performed By: #### 4 6109 #### LAB [address] [address] Galo Monsalve M.D. [id number] Protein [Mass/Vol] 6.1 g/dL Normal 6.0-8.0 [facility] Comment on above: Order Comment: [facility] has implemented the eGFR calculation approach that does not have a coefficient for race that conforms to the NKF-ASN Task Force Recommendations. Performed By: #### 4 6109 #### LAB [address] [address] Galo Monsalve M.D. [id number] Sodium [Moles/Vol] 123 mmol/L Low 135-145 [facility] Comment on above: Order Comment: [facility] has implemented the eGFR calculation approach that does not have a coefficient for race that conforms to the NKF-ASN Task Force Recommendations. Performed By: #### 4 6109 #### LAB [address] [address] Galo Monsalve M.D. [id number] Urea nitrogen [Mass/Vol] 19 mg/dL Normal 8-25 [facility] Comment on above: Order Comment: [facility] has implemented the eGFR calculation approach that does not have a coefficient for race that conforms to the NKF-ASN Task Force Recommendations. Performed By: #### 4 6109 #### LAB [address] [address] Galo Monsalve M.D. [id number] Urea nitrogen/Creatinine [Mass ratio] 19.4 mg/mg Normal 10.0-20.0 [facility] Comment on above: Order Comment: [facility] has implemented the eGFR calculation approach that does not have a coefficient for race that conforms to the NKF-ASN Task Force Recommendations. Performed By: #### 4 6109 #### LAB [address] [address] Galo Monsalve M.D. [id number] Albumin [Mass/Vol] 3.7 g/dL Normal 3.2-5.2 [facility] Comment on above: Order Comment: [facility] has implemented the eGFR calculation approach that does not have a coefficient for race that conforms to the NKF-ASN Task Force Recommendations. Performed By: #### 4 6126 #### LAB [address] [address] Galo Monsalve M.D. [id number] ALP [Catalytic activity/Vol] 52 U/L Normal 40-150 [facility] Comment on above: Order Comment: [facility] has implemented the eGFR calculation approach that does not have a coefficient for race that conforms to the NKF-ASN Task Force Recommendations. Performed By: #### 4 6126 #### LAB [address] [address] Galo Monsalve M.D. [id number] ALT [Catalytic activity/Vol] 8 U/L Normal 0-50 U/L [facility] Comment on above: Order Comment: [facility] has implemented the eGFR calculation approach that does not have a coefficient for race that conforms to the NKF-ASN Task Force Recommendations. Performed By: #### 4 6126 #### LAB [address] [id number] Galo Monsalve M.D. [id number] Anion gap [Moles/Vol] 15 mmol/L Normal 10-20 [facility] Comment on above: Order Comment: [facility] has implemented the eGFR calculation approach that does not have a coefficient for race that conforms to the NKF-ASN Task Force Recommendations. Performed By: #### 4 6118 #### LAB [address] [address] Galo Monsalve M.D. [id number] AST [Catalytic activity/Vol] 23 U/L Normal 0-50 U/L [facility] Comment on above: Order Comment: [facility] has implemented the eGFR calculation approach that does not have a coefficient for race that conforms to the NKF-ASN Task Force Recommendations. Performed By: #### 4 6197 #### LAB [address] [address] Galo Monsalve M.D. [id number] Bilirubin [Mass/Vol] 1.2 mg/dL Normal 0.0-1.3 [facility] Comment on above: Order Comment: [facility] has implemented the eGFR calculation approach that does not have a coefficient for race that conforms to the NKF-ASN Task Force Recommendations. Performed By: #### 4 6126 #### LAB [address] [address] Galo Monsalve M.D. [id number] Calcium [Mass/Vol] 8.5 mg/dL Normal 8.4-10.2 [facility] Comment on above: Order Comment: [facility] has implemented the eGFR calculation approach that does not have a coefficient for race that conforms to the NKF-ASN Task Force Recommendations. Performed By: #### 4 6126 #### LAB [address] [address] Galo Monsalve M.D. [id number] Chloride [Moles/Vol] 97 mmol/L Low 98-108 [facility] Comment on above: Order Comment: [facility] has implemented the eGFR calculation approach that does not have a coefficient for race that conforms to the NKF-ASN Task Force Recommendations. Performed By: #### 4 6126 #### LAB [address] [address] Galo Monsalve M.D. [id number] Creatinine [Mass/Vol] 0.82 mg/dL Normal 0.80-1.30 [facility] Comment on above: Order Comment: [facility] has implemented the eGFR calculation approach that does not have a coefficient for race that conforms to the NKF-ASN Task Force Recommendations. Performed By: #### 4 6126 #### LAB [address] [address] Galo Monsalve M.D. [id number] EGFR 88 mL/min/1.73 m2 Normal >=60 [facility] Comment on above: Order Comment: [facility] has implemented the eGFR calculation approach that does not have a coefficient for race that conforms to the NKF-ASN Task Force Recommendations. Result Comment: Yadira mated GFR was calculated using the 2020 CKD-EPI creatinine equation. Performed By: #### 4 6126 #### LAB [address] [address] Galo Monsalve M.D. [id number] Glucose [Mass/Vol] 111 mg/dL High 65-99 [facility] Comment on above: Order Comment: [facility] has implemented the eGFR calculation approach that does not have a coefficient for race that conforms to the NKF-ASN Task Force Recommendations. Performed By: #### 4 6126 #### LAB [address] [address] Galo Monsalve M.D. [id number] HCO3 (Bld) [Moles/Vol] 22 mmol/L Normal 21-32 [facility] Comment on above: Order Comment: [facility] has implemented the eGFR calculation approach that does not have a coefficient for race that conforms to the NKF-ASN Task Force Recommendations. Performed By: #### 4 6126 #### LAB [address] [address] Galo Monsalve M.D. [id number] Potassium [Moles/Vol] 4.1 mmol/L Normal 3.5-5.1 [facility] Comment on above: Order Comment: [facility] has implemented the eGFR calculation approach that does not have a coefficient for race that conforms to the NKF-ASN Task Force Recommendations. Performed By: #### 4 6126 #### LAB [address] [place], [place] [address] Galo Monsalve M.D. [id number] Protein [Mass/Vol] 6.4 g/dL Normal 6.0-8.0 [facility] Comment on above: Order Comment: [facility] has implemented the eGFR calculation approach that does not have a coefficient for race that conforms to the NKF-ASN Task Force Recommendations. Performed By: #### 4 6126 #### LAB [address] [address] Galo Monsalve M.D. [id number] Sodium [Moles/Vol] 130 mmol/L Low 135-145 [facility] Comment on above: Order Comment: [facility] has implemented the eGFR calculation approach that does not have a coefficient for race that conforms to the NKF-ASN Task Force Recommendations. Performed By: #### 4 6126 #### LAB [address] [address] Galo Monsalve M.D. [id number] Urea nitrogen [Mass/Vol] 16 mg/dL Normal 8-25 [facility] Comment on above: Order Comment: [facility] has implemented the eGFR calculation approach that does not have a coefficient for race that conforms to the NKF-ASN Task Force Recommendations. Performed By: #### 4 6126 #### LAB [address] [address] Galo Monsalve M.D. [id number] Urea nitrogen/Creatinine [Mass ratio] 19.5 mg/mg Normal 10.0-20.0 [facility] Comment on above: Order Comment: [facility] has implemented the eGFR calculation approach that does not have a coefficient for race that conforms to the NKF-ASN Task Force Recommendations. Performed By: #### 4 6126 #### [facility] [address] [address] Galo Monsalve M.D. [id number] DRUGS OF ABUSE SCREEN, URINE on 08-14-2024 AMPHETAMINE SCREEN, URINE Not detected Normal None Detected [facility] Comment on above: Order Comment: Scree n results should be used for treatment purposes only.Specimen will be kept for 2 weeks, if the sample is adequate. Confirmation testing can be initiated by calling the lab within 2 weeks. Result Comment: Urin e Amphetamine Cutoff: < 1000 ng/mL = None Detected Performed By: #### 4 6965 ####[facility] [address] [address] Galo Monsalve M.D. [id number] BARBITURATE SCREEN URINE Positive Abnormal Non e Detected [facility] Comment on above: Order Comment: Scree n results should be used for treatment purposes only.Specimen will be kept for 2 weeks, if the sample is adequate. Confirmation testing can be initiated by calling the lab within 2 weeks. Result Comment: Urin e Barbiturates Cutoff: < 200 ng/mL = None Detected Performed By: #### 4 6965 ####[facility] [address] [address] Galo Monsalve M.D. [id number] BENZODIAZEPINE SCREEN, URINE Not detected Normal None Detected [facility] Comment on above: Order Comment: Scree n results should be used for treatment purposes only.Specimen will be kept for 2 weeks, if the sample is adequate. Confirmation testing can be initiated by calling the lab within 2 weeks. Result Comment: Urin e Benzodiazepine Cutoff: < 200 ng/mL = None Detected Performed By: #### 4 6965 ####[facility] [address] [address] Galo Monsalve M.D. [id number] BUPRENORPHINE, URINE Not detected Normal None Detected [facility] Comment on above: Order Comment: Scree n results should be used for treatment purposes only.Specimen will be kept for 2 weeks, if the sample is adequate. Confirmation testing can be initiated by calling the lab within 2 weeks. Result Comment: Urin e Buprenorphine Cutoff: < 5 ng/mL = None Detected Performed By: #### 4 6965 ####[facility] [address] [address] Galo Monsalve M.D. [id number] CANNABINOID SCREEN URINE Not detected Normal Non e Detected [facility] Comment on above: Order Comment: Scree n results should be used for treatment purposes only.Specimen will be kept for 2 weeks, if the sample is adequate. Confirmation testing can be initiated by calling the lab within 2 weeks. Result Comment: Urin e Cannabinoids Cutoff: < 50 ng/mL = None Detected Performed By: #### 4 6965 ####[facility] [address] [address] Galo Monsalve M.D. [id number] COCAINE, SCREEN URINE Not detected Normal None Detected [facility] Comment on above: Order Comment: Scree n results should be used for treatment purposes only.Specimen will be kept for 2 weeks, if the sample is adequate. Confirmation testing can be initiated by calling the lab within 2 weeks. Result Comment: Urin e Cocaine Cutoff: < 300 ng/mL = None Detected Performed By: #### 4 6965 ####[facility] [address] [address] Galo Monsalve M.D. [id number] FENTANYL, URINE Not detected Normal None Detected [facility] Comment on above: Order Comment: Scree n results should be used for treatment purposes only.Specimen will be kept for 2 weeks, if the sample is adequate. Confirmation testing can be initiated by calling the lab within 2 weeks. Result Comment: Urin e Fentanyl Cutoff: < 1 ng/mL = None Detected Performed By: #### 4 6965 ####[facility] [address] [address] Galo Monsalve M.D. [id number] METHADONE SCREEN, URINE Not detected Normal None Detected [facility] Comment on above: Order Comment: Scree n results should be used for treatment purposes only.Specimen will be kept for 2 weeks, if the sample is adequate. Confirmation testing can be initiated by calling the lab within 2 weeks. Result Comment: Urin e Methadone Cutoff: < 300 ng/mL = None Detected Performed By: #### 4 6965 ####[facility] [address] [address] Galo Monsalve M.D. [id number] OPIATE SCREEN URINE Positive Abnormal None Detected [facility] Comment on above: Order Comment: Scree n results should be used for treatment purposes only.Specimen will be kept for 2 weeks, if the sample is adequate. Confirmation testing can be initiated by calling the lab within 2 weeks. Result Comment: Urin e Opiates Cutoff: < 300 ng/mL = None Detected Performed By: #### 4 6965 ####[facility] [address] [place], [place] [address] Galo Monsalve M.D. [id number] OXYCODONE SCREEN, URINE Positive Abnormal None Detected [facility] Comment on above: Order Comment: Scree n results should be used for treatment purposes only.Specimen will be kept for 2 weeks, if the sample is adequate. Confirmation testing can be initiated by calling the lab within 2 weeks. Result Comment: Urin e Oxycodone Cutoff: < 100 ng/mL = None Detected Performed By: #### 4 6965 ####[facility] [address] [place], [place] [address] Galo Monsalve M.D. [id number] ECHOCARDIOGRAM COMPLETE W CO NTRASTon 08-14-2024 ECHOCARDIOGRAM COMPLETE W CONTRAST Patient Info Name: SALVADOR GLASS Age: 84 years : 1940 Gender: Male Ht: 180 cm Wt: 77 kg BSA: 1.97 m2 HR: 59 bpm BP: 150 / 63 mmHg Heart Rhythm: Atrial Fibrillation Technical Quality: Fair Exam Date: 08/14/2024 9:25 AM Patient Status: Inpatient Bristle Machine Operator: Davion Man RCDS Exam Type: ECHOCARDIOGRAM COMPLETE W CONTRAST Study Info Indications - Syncope R55 - Syncope and collapse Referring Physician: [id number] Robins; [id number] BMI: 23.71 kg/m2 Summary 1. Technically difficult echo windows due to rib fractures and patient positioning. Definity used in attempt to optimize study. 2. Left ventricular systolic function is normal with an ejection fraction by Biplane Method of Discs of 69 %. 3. RV size not well assessed based on image quality. Normal RV function. 4. There is mild mitral valve regurgitation. 5. There is mild tricuspid valve regurgitation. 6. There is pulmonary hypertension, estimated right ventricle systolic pressure is 50 mmHg. History/Risk Factors Hypertension: Yes Tobacco Use: Former Valve Disease - TV: Moderate Procedure(s): Complete two-dimensional, color flow and Doppler transthoracic echocardiogram is performed with contrast. Definity explained to patient. Patient verbalizes understanding and agrees to proceed. Definity 1.3ml/8.7ml normal sterile saline 3 ml total given IV over 30-60 seconds. Left Ventricle Left ventricular chamber dimension is normal. Left ventricular systolic function is normal with an ejection fraction by Biplane Method of Discs of 69 %. Normal left ventricular mass. Left ventricular segmental wall motion is normal. The left ventricular diastolic function is indeterminate. Right Ventricle RV size not well assessed based on image quality. Normal RV function. Left Atria Left atrial chamber is severely enlarged with a left atrial volume index of 57 ml/m2 by BP MOD. Right Atria Right atrial chamber dimension is normal. Aortic Valve The aortic valve is trileaflet. There is no aortic valve sclerosis. There is no aortic valve stenosis. There is no aortic valve regurgitation. Pulmonic Valve The pulmonic valve is normal. There is no pulmonic valve stenosis. There is trace pulmonic regurgitation. Mitral Valve The mitral valve has normal leaflets. There is no mitral valve stenosis. There is mild mitral valve regurgitation. Tricuspid Valve The tricuspid valve leaflets are normal. There is no significant tricuspid valve stenosis. There is mild tricuspid valve regurgitation. There is pulmonary hypertension, estimated right ventricle systolic pressure is 50 mmHg. Pericardium/Pleural There is no pericardial effusion. Inferior Vena Cava Normal inferior vena cava with >50% collapse upon inspiration consistent with normal right atrial pressure. Aorta The aortic measurements are indexed to age and body surface area. The aortic root is normal measuring 3.2 cm with an index of 1.6 cm/m2. Wall Motion Scoring Wall Motion Scoring Index: 1.00 Left Ventricular Outflow Tract - Name Value Normal - LVOT 2D - LVOT Diameter 2.1 cm LVOT Doppler - LVOT Peak Velocity 0.9 m/s LVOT Peak Gradient 3 mmHg LVOT Mean Gradient 2 mmHg LVOT VTI 18 cm LVOT VTI/AV VTI Ratio 0.8 LVOT Stroke Volume 64 ml LVOT Stroke Index 32.66 ml/m2 Pulmonic Valve - Name Value Normal - RVOT Doppler - RVOT Peak Velocity 68 cm/s RVOT Peak Gradient 2 mmHg RVOT Mean Gradient 1 mmHg RVOT VTI 14 cm Mitral Valve - Name Value Normal - MV Annular TDI - MV Lateral e' Velocity 13.5 cm/s >=9.5 Tricuspid Valve - Name Value Normal - TV Regurgitation Doppler - TR Peak Velocity 3.43 m/s <=2.80 TR Peak Gradient 50 mmHg Estimated PAP/RSVP - RA Pressure 3 mmHg <=5 PA Systolic Pressure 50 mmHg <=36 RV Systolic Pressure 50 mmHg <36 TV Annular TDI (more content not included)... Normal [facility] MAGNESIUM LEVELon 08-14-2024 Magnesium [Mass/Vol] 1.9 mg/dL Normal 1.6-2.4 [facility] Comment on above: Performed By: #### 4 [id number] #### LAB [address] [address] Galo Monsalve M.D. [id number] Magnesium [Mass/Vol] 1.9 mg/dL Normal 1.6-2.4 [facility] Comment on above: Performed By: #### 4 6109 #### LAB [address] [address] Galo Monsalve M.D. [id number] PHOSPHORUSon 08-14-2024 Phosphate [Mass/Vol] 2.6 mg/dL Normal 2.3-3.7 [facility] Comment on above: Performed By: #### 4 5060 #### LAB [address] [address] Galo Monsalve M.D. [id number] Phosphate [Mass/Vol] 2.1 mg/dL Low 2.3-3.7 [facility] Comment on above: Performed By: #### 4 6109 #### LAB [address] [address] Galo Monsalve M.D. [id number] US DOPPLER CAROTIDon 025 US DOPPLER CAROTID Patient Info Name: SALVADOR GLASS Age: 84 years : 1940 Gender: Male Exam Date: 08/14/2024 6:53 AM Patient Status: Inpatient Model Maker Apprentice: eMna Tian RVT Referring Physician: [id number] Farias; Indications - Syncope R55 - Syncope and collapse Procedure Description 98951 Duplex examination using B-mode, color and spectral Doppler of extracranial arteries; complete bilateral study. NASCET criteria is used when performing imaging correlation with carotid duplex interpretation. Conclusions * Bilateral. * Less than 50% stenosis in the right and left internal carotid arteries. * Right and left vertebral arteries are patent with antegrade flow. * No evidence of hemodynamically significant stenosis in the right or left common carotid, external carotid and subclavian arteries. Measurements - Name Value - Right PSV - Right Prox CCA PSV 109 cm/s Right Mid CCA PSV 87 cm/s Right Distal CCA PSV 68 cm/s Right Prox ICA PSV 75 cm/s Right Mid ICA PSV 84 cm/s Right Distal ICA PSV 116 cm/s Right ECA PSV 116 cm/s Right Vert PSV 61 cm/s Right Prox SCA PSV 148 cm/s Rt ICA/CCA Ratio 1.1 Measurements - Name Value - Right EDV - Right Prox CCA EDV 11 cm/s Right Mid CCA EDV 14 cm/s Right Distal CCA EDV 11 cm/s Right Prox ICA EDV 17 cm/s Right Mid ICA EDV 17 cm/s Right Distal ICA EDV 25 cm/s Right ECA EDV 0 cm/s Right Vert EDV 9 cm/s Right Prox SCA EDV 0 cm/s Measurements - Name Value - Left PSV - Left Prox CCA PSV 128 cm/s Left Mid CCA PSV 121 cm/s Left Distal CCA PSV 107 cm/s Left Prox ICA PSV 90 cm/s Left Mid ICA PSV 94 cm/s Left Distal ICA PSV 86 cm/s Left ECA PSV 99 cm/s Left Vert PSV 60 cm/s Left Prox SCA PSV 178 cm/s Lt ICA/CCA Ratio 0.8 Measurements - Name Value - Left EDV - Left Prox CCA EDV 9 cm/s Left Mid CCA EDV 23 cm/s Left Distal CCA EDV 9 cm/s Left Prox ICA EDV 23 cm/s Left Mid ICA EDV 22 cm/s Left Distal ICA EDV 23 cm/s Left ECA EDV 0 cm/s Left Vert EDV 14 cm/s Left Prox SCA EDV 0 cm/s Right Findings * No plaque noted in the right external carotid artery. * No plaque noted in the right subclavian artery. * Calcific plaque noted in the right distal common carotid artery. * Calcific plaque noted in the right internal carotid artery. Left Findings * No plaque noted in the left subclavian artery. * No plaque noted in the left external carotid artery. * Heterogeneous plaque noted in the left mid- distal common carotid artery. * Calcific plaque noted in the left internal carotid artery. Risk Factors Patient has a history of hypertension and tobacco use-previous. . Report Signatures Finalized by Florentino Montoya MD, RPVI on 08/14/2024 09:20 AM [facility] XR CHEST PA/APon 08-14-2024 XR CHEST PA/AP EXAMINATION: XR CHEST PA/AP HISTORY: ORDERING SYSTEM PROVIDED HISTORY: SOB, TECHNOLOGIST PROVIDED HISTORY: Illness/Other Reason for exam: sob Cancer History: u Surgery, RadiationHistory: u Encounter Type: Initial Additional signs and symptoms: na ORDERING SYSTEM PROVIDED DIAGNOSIS CODES: S22.49XA Closed fracture of multiple ribs, unspecified laterality, initial encounter F10.10 Alcohol abuse E87.1 Hyponatremia COMPARISON: Portable chest radiograph dated 08/13/2024. TECHNIQUE: 2 AP portable chest radiographs performed. FINDINGS: The trachea is midline. Stable mild enlargement of the cardiac silhouette which is partially obscured. Stable mild atheromatous calcification at the aortic arch. Stable pulmonary vascular congestion, prominent interstitial markings throughout both lung h[place], moderate right pleural effusion and opacity within the right mid and lower chest which in the right clinical setting is consistent with congestive heart failure. There is no pneumothorax. The bony structures are osteopenic. Stable chronic fracture deformity distal left clavicle. IMPRESSION: Stable findings as described which in the right clinical setting are consistent with congestive heart failure. Stable moderate right pleural effusion. Workstation ID: [id number] Dictated by: WHITNEY PÉREZ on WedAug 14, 2024 7:38:06 AM EST Transcribed by: WHITNEY PÉREZ on WedAug 14, 2024 7:38:06 AM EST Finalized by: WHITNEY PÉREZ on WedAug 14, 2024 7:38:06 AM EST Normal [facility] Comment on above: Order Comment: Injur y/Trauma or Illness?:Illness/OtherHow long have you had these symptoms (acute/chronic)?:AcuteReason for exam?:sobHistory of cancer?:uSurgeries, chemotherapy, or radiation?:uType of Exam?:InitialAdditional signs and symptoms?:na ALCOHOL, MEDICALon 5 ALCOHOL MEDICAL < Normal <10.0 [facility] Comment on above: Result Comment: Alco hol cutoff: <10.00 mg/dL = None Detected Performed By: #### 4 [id number] #### [facility] LAB [address] [place], [place] [address] Galo Monsalve M.D. [id number] BILIRUBIN, DIRECTon 08-13-19 25 Bilirubin.indirect [Mass/Vol] 0.5 mg/dL High 0.0-0.4 [facility] Comment on above: Performed By: #### 4 5145 #### [facility] LAB [address] [address] Galo Monsalve M.D. [id number] CBC WITH AUTO DIFFERENTIALon 08-13-2024 AUTO NRBC 0.0 % Normal [facility] Comment on above: Performed By: #### 4 5060 #### LAB [address] [address] Galo Monsalve M.D. [id number] AUTO NRBC ABS COUNT 0.00 K/mcL Normal 0.00-0.00 [facility] Comment on above: Performed By: #### 4 5060 #### LAB [address] [address] Galo Monsalve M.D. [id number] BASOPHILS ABSOLUTE COUNT 0.01 K/mcL Normal 0.00-0.30 [facility] Comment on above: Performed By: #### 4 5060 #### LAB [address] [address] Galo Monsalve M.D. [id number] Basophils/100 WBC (Bld) 0.2 % Normal [facility] Comment on above: Performed By: #### 4 5060 #### LAB [address] [address] Galo Monsalve M.D. [id number] Eosinophils (Bld) [#/Vol] 0.01 10*3/uL Normal 0.00-0.50 [facility] Comment on above: Performed By: #### 4 5060 #### LAB [address] [address] Galo Monsalve M.D. [id number] Eosinophils/100 WBC (Bld) 0.2 % Normal [facility] Comment on above: Performed By: #### 4 5060 #### LAB [address] [address] Galo Monsalve M.D. [id number] Erythrocyte distribution width (RBC) [Ratio] 18.5 % High 11.6-14.8 [facility] Comment on above: Performed By: #### 4 5060 #### LAB [address] [address] Galo Monsalve M.D. [id number] Hematocrit (Bld) [Volume fraction] 30.6 % Low 41.0-53.0 [facility] Comment on above: Performed By: #### 4 5060 #### LAB [address] [address] Galo Monsalve M.D. [id number] Hemoglobin (Bld) [Mass/Vol] 9.4 g/dL Low 13.5-17.5 [facility] Comment on above: Performed By: #### 4 5060 #### LAB [address] [address] Galo Monsalve M.D. [id number] IG ABSOLUTE 0.03 K/mcL Normal 0.00-0.30 [facility] Comment on above: Performed By: #### 4 5060 #### LAB [address] [address] Galo Monsalve M.D. [id number] IG PERCENT 0.70 % [facility] Comment on above: Result Comment: The IG parameter is the percentage of metamyelocytes, myelocytes and promyelocytes. An immature granulocyte count (IG) of 1% or more suggests the possibility of infection, an IG count of 3% is very likely related to an infection. Performed By: #### 4 5060 #### LAB [address] [address] Galo Monsalve M.D. [id number] Lymphocytes (Bld) [#/Vol] 0.29 10*3/uL Low 0.90-4.00 [facility] Comment on above: Performed By: #### 4 5060 #### LAB [address] [address] Galo Monsalve M.D. [id number] Lymphocytes/100 WBC (Bld) 6.5 % [facility] Comment on above: Performed By: #### 4 5060 #### LAB [address] [address] Galo Monsalve M.D. [id number] MCH (RBC) [Entitic mass] 24.5 pg Low 26.0-34.0 [facility] Comment on above: Performed By: #### 4 5060 #### LAB [address] [address] Galo Monsalve M.D. [id number] MCV (RBC) [Entitic vol] 79.7 fL Low 80.0-100.0 [facility] Comment on above: Performed By: #### 4 5060 #### LAB [address] [address] Galo Monsalve M.D. [id number] MEAN CORPUSCULAR HEMOGLOBIN CONC 30.7 g/dL Low 31.0-37.0 [facility] Comment on above: Performed By: #### 4 5060 #### LAB [address] [address] Galo Monsalve M.D. [id number] Monocytes (Bld) [#/Vol] 0.62 10*3/uL Normal 0.30-0.90 [facility] Comment on above: Performed By: #### 4 5060 #### LAB [address] [address] Galo Monsalve M.D. [id number] Monocytes/100 WBC (Bld) 13.8 % Normal [facility] Comment on above: Performed By: #### 4 5060 #### LAB [address] [address] Galo Monsalve M.D. [id number] NEUTROPHILS ABSOLUTE COUNT 3.52 K/mcL Normal 1.70-7.00 [facility] Comment on above: Performed By: #### 4 5060 #### LAB [address] [address] Galo Monsalve M.D. [id number] Neutrophils/100 WBC (Bld) 78.6 % Normal [facility] Comment on above: Performed By: #### 4 5060 #### LAB [address] [address] Galo Monsalve M.D. [id number] Platelet mean volume (Bld) [Entitic vol] 8.9 fL Low 9.4-12.4 [facility] Comment on above: Performed By: #### 4 5060 #### LAB [address] [place], [place] [address] Galo Monsalve M.D. [id number] Platelets (Bld) [#/Vol] 125 10*3/uL Low 150-400 [facility] Comment on above: Performed By: #### 4 5060 #### LAB [address] [address] Galo Monsalve M.D. [id number] RBC (Bld) [#/Vol] 3.84 10*6/uL Low 4.50-5.90 [facility] Comment on above: Performed By: #### 4 5060 #### LAB [address] [address] Galo Monsalve M.D. [id number] WBC (Bld) [#/Vol] 4.48 10*3/uL Low 4.50-11.00 [facility] Comment on above: Performed By: #### 4 5060 #### LAB [address] [address] Galo Monsalve M.D. [id number] COMPREHENSIVE METABOLIC PANE Vicente 08-13-2024 Albumin [Mass/Vol] 3.9 g/dL Normal 3.2-5.2 [facility] Comment on above: Order Comment: [facility] has implemented the eGFR calculation approach that does not have a coefficient for race that conforms to the NKF-ASN Task Force Recommendations. Performed By: #### 4 6109 #### MH LAB [address] [address] Galo Monsalve M.D. [id number] ALP [Catalytic activity/Vol] 58 U/L Normal 40-150 [facility] Comment on above: Order Comment: [facility] has implemented the eGFR calculation approach that does not have a coefficient for race that conforms to the NKF-ASN Task Force Recommendations. Performed By: #### 4 6109 #### LAB [address] [address] Galo Monsalve M.D. [id number] ALT [Catalytic activity/Vol] 9 U/L Normal 0-50 U/L [facility] Comment on above: Order Comment: [facility] has implemented the eGFR calculation approach that does not have a coefficient for race that conforms to the NKF-ASN Task Force Recommendations. Performed By: #### 4 6109 #### LAB [address] [address] Galo Monsalve M.D. [id number] Anion gap [Moles/Vol] 17 mmol/L Normal 10-20 [facility] Comment on above: Order Comment: [facility] has implemented the eGFR calculation approach that does not have a coefficient for race that conforms to the NKF-ASN Task Force Recommendations. Performed By: #### 4 6109 #### LAB [address] [address] Galo Monsalve M.D. [id number] AST [Catalytic activity/Vol] 29 U/L Normal 0-50 U/L [facility] Comment on above: Order Comment: [facility] has implemented the eGFR calculation approach that does not have a coefficient for race that conforms to the NKF-ASN Task Force Recommendations. Performed By: #### 4 6109 #### LAB [address] [address] Galo Monsalve M.D. [id number] Bilirubin [Mass/Vol] 1.5 mg/dL High 0.0-1.3 [facility] Comment on above: Order Comment: [facility] has implemented the eGFR calculation approach that does not have a coefficient for race that conforms to the NKF-ASN Task Force Recommendations. Performed By: #### 4 6109 #### LAB [address] [address] Galo Monsalve M.D. [id number] Calcium [Mass/Vol] 8.8 mg/dL Normal 8.4-10.2 [facility] Comment on above: Order Comment: [facility] has implemented the eGFR calculation approach that does not have a coefficient for race that conforms to the NKF-ASN Task Force Recommendations. Performed By: #### 4 6109 #### LAB [address] [place], [place] [address] Galo Monsalve M.D. [id number] Chloride [Moles/Vol] 93 mmol/L Low 98-108 [facility] Comment on above: Order Comment: [facility] has implemented the eGFR calculation approach that does not have a coefficient for race that conforms to the NKF-ASN Task Force Recommendations. Performed By: #### 4 6109 #### MH LAB [address] [address] Galo Monsalve M.D. [id number] Creatinine [Mass/Vol] 0.78 mg/dL Low 0.80-1.30 [facility] Comment on above: Order Comment: [facility] has implemented the eGFR calculation approach that does not have a coefficient for race that conforms to the NKF-ASN Task Force Recommendations. Performed By: #### 4 6109 #### LAB [address] [address] Galo Monsalve M.D. [id number] EGFR 89 mL/min/1.73 m2 Normal >=60 [facility] Comment on above: Order Comment: [facility] has implemented the eGFR calculation approach that does not have a coefficient for race that conforms to the NKF-ASN Task Force Recommendations. Result Comment: Yadira mated GFR was calculated using the 2020 CKD-EPI creatinine equation. Performed By: #### 4 6109 #### MH LAB [address] [address] Galo Monsalve M.D. [id number] Glucose [Mass/Vol] 116 mg/dL High 65-99 [facility] Comment on above: Order Comment: [facility] has implemented the eGFR calculation approach that does not have a coefficient for race that conforms to the NKF-ASN Task Force Recommendations. Performed By: #### 4 6109 #### LAB [address] [place] [id number] Galo Monsalve M.D. [id number] HCO3 (Bld) [Moles/Vol] 23 mmol/L Normal 21-32 [facility] Comment on above: Order Comment: [facility] has implemented the eGFR calculation approach that does not have a coefficient for race that conforms to the NKF-ASN Task Force Recommendations. Performed By: #### 4 6109 #### LAB [address] [address] Galo Monsalve M.D. [id number] Potassium [Moles/Vol] 3.9 mmol/L Normal 3.5-5.1 [facility] Comment on above: Order Comment: [facility] has implemented the eGFR calculation approach that does not have a coefficient for race that conforms to the NKF-ASN Task Force Recommendations. Performed By: #### 4 6109 #### LAB [address] [address] Galo Monsalve M.D. [id number] Protein [Mass/Vol] 6.6 g/dL Normal 6.0-8.0 [facility] Comment on above: Order Comment: [facility] has implemented the eGFR calculation approach that does not have a coefficient for race that conforms to the NKF-ASN Task Force Recommendations. Performed By: #### 4 6109 #### LAB [address] [address] Galo Monsalve M.D. [id number] Sodium [Moles/Vol] 129 mmol/L Low 135-145 [facility] Comment on above: Order Comment: [facility] has implemented the eGFR calculation approach that does not have a coefficient for race that conforms to the NKF-ASN Task Force Recommendations. Performed By: #### 4 6109 #### LAB [address] [address] Galo Monsalve M.D. [id number] Urea nitrogen [Mass/Vol] 11 mg/dL Normal 8-25 [facility] Comment on above: Order Comment: [facility] has implemented the eGFR calculation approach that does not have a coefficient for race that conforms to the NKF-ASN Task Force Recommendations. Performed By: #### 4 6109 #### LAB [address] [place], [place] [address] Galo Monsalve M.D. [id number] Urea nitrogen/Creatinine [Mass ratio] 14.1 mg/mg Normal 10.0-20.0 [facility] Comment on above: Order Comment: [facility] has implemented the eGFR calculation approach that does not have a coefficient for race that conforms to the NKF-ASN Task Force Recommendations. Performed By: #### 4 6109 #### LAB [address] [place], [place] [address] Galo Monsalve M.D. [id number] CONSULTon 08-13-2024 CONSULT Neurosurgery [facility] nt Consult 08/13/2024 Kristi Berry, [facility] Patient: Salvador Glass Jr. Date of : 1940 (84 y.o.) Referring Provider: Refer to consult order in electronic medical record PCP: Nanci Flores CNP ASSESSMENT/PLAN: Salvador Glass 84 y.o. male with chronic mild compression fracture of T2, T3 and T5. No pain. Neuro intact. No bracing required. Follow up as needed No new Assessment & Plan notes have been filed under this hospital service since the last note was generated. Service: Neurosurgery SUBJECTIVE: Chief Complaint/Reason for Visit: fall History of Present Illness: Salvador Glass is a 84 y.o. male presenting to ED with fall. . No LOC. Trauma work up showed possible thoracic compression Age-indeterminate mild superior endplate infractions of T2, T3 and T5. Patient also has severe rib fracture. He denies back pain. Patient denies focal numbness, weakness. Pending Lab and Radiology Results Order Current Status XR Chest 1 View In process Interpretation of Testing: I personally reviewed the CT and agree with the interpretation(s) with the following comments. Agree wit CT thoracic spine Age-indeterminate mild superior endplate infractions of T2, T3 and T5. Review of Systems: Constitutional:No fever, no weight loss All other systems reviewed and negative other than HPI Past Medical History: Diagnosis Date Arrhythmia A Fib Bradycardia Hypertension Leukopenia Mild anemia Psoriasis Renal failure History reviewed. No pertinent surgical history. Family History Problem Relation Age of Onset Emphysema Mother Diabetes Father Asthma Father Social History Tobacco Use Smoking Status Former Current packs/day: 0.00 Types: Cigarettes Quit date: 1984 Years since quittin.0 Smokeless Tobacco Never Tobacco Comments quit in his 40s Additional History Comments: None Allergies: Patient has no known allergies. Current HOME Medications: No outpatient medications have been marked as taking for the 08/13/24 encounter (Hospital Encounter). OBJECTIVE: Physical Examination: BP (!) 101/56 Pulse (!) 49 Temp 98.7 degrees F (37.1 degrees C) (Oral) Resp 16 Ht 5' 11 Wt 77.1 kg (170 lb) SpO2 98% BMI 23.71 kg/m Alert and oriented x3 Comfortable, NAD Motor strength 5/5 Sensation symmetrical Laboratory and Additional Data Reviewed: Reviewed 08/13/24 5:32 PM: Laboratory and Radiology AUTHENTICATED BY KRISTI BERRY, ON 08/13/2024 17:36:46 Normal [facility] CONSULT --- Attestation signed by Raymundo Guillen MD at 08/13/2024 11:16 AM TRAUMA/ ACUTE CARE SURGERY ATTENDING NOTE Please link this note as an addendum to the AIR[facility] note with the same day of service. The patient was seen and examined by me, the attending trauma surgeon, on multidisciplinary rounds on the date of service listed above. I have reviewed the [facility] note, labs, studies, and valuation consultant notes. Furthermore even though we both were involved with evaluating this patient today, my participation and time spent has exceeded 51% of the total time spent. I have reviewed and agree with the documented history, exam, and plan of care, with the following additions and corrections: Today: Salvador Glass Jr. is a 84 y.o. male presenting with L acute and subacute 3-11 rib fx with flail segments, as well as T spine fx following syncopal fall. CT head, c spine, cap tl personally reviewed 08.13 with above findings, osteopenia. All of the above listed fractures are pathological fractures due to combination of osteopenia and trauma that alone would not have caused them. Will have pt follow up with PCP for penitentiary management of osteopenia. Vit D def noted, started on supp. Pt has been admitted to [facility] for multiple medical co morbidities. CBC chem 7 personally reviewed with pancytopenia, hypoNa. Pt also with R sided effusion, suspect that this is not trauma related as pt without rib fx on L side. Nsg has been consulted, will f/u recs. Pt with hx ETOH, CIWA in place per primary team. On examination pt wih L chest wall pain, states pain and breathing improved. D/w pt SSRF, not sure how well pt will tolerate single lung ventilation with his current R side dysnfunction. Will monitor progression with further plans depending on his progress. F/u nsg recs. Further care per primary team, will follow along. A comprehensive review of systems was performed with the pt and all systems reviewed were negative except those listed in the HPI. Tyler Guillen MD, FACS, DABS, DABA Trauma, Acute Care Surgery, Surgical Critical Care, and Neurocritical Care [facility] SURGICAL HISTORY & PHYSICAL/CONSULTATION NOTE ===== INJURIES: Left Rib 3-5, 7-9, 11 fx T2, T3, T5 mild superior endplate infractions ASSESSMENT & PLAN/ACTIVE MEDICAL PROBLEMS: Multiple left-sided rib fractures, small pleural effusion CT CAP with left anterior lateral third rib fracture, lateral left fourth and fifth fracture, comminuted lateral posterior left seventh and eighth rib fracture, mildly displaced posterior aspect of ninth rib fracture, minimally displaced left 11th rib fracture -Aggressive pulmonary hygiene -Pain control -Therapies when able -Check vitamin D Thoracic fractures CT T-spine with age-indeterminate mild superior endplate infractions of T2, T3, T5 Patient with pain on palpation -Neurosurgery consultation -Pain management -Therapies when able Skin tears to left forearm Image uploaded to media tab 08/13 Cleanse with chlorhexidine and normal saline at [facility] Tdap 06/2022 -Dressed with bacitracin and nonadherent pads wrapped with Kerlix daily -Check x-ray forearm Alcoholism EtOH negative Drinks 8-10 Gallo and Cokes a day, last drink at 08/11 -Would recommend phenobarb taper, further management per primary -SBIRTwhen able Acute blood loss anemia Secondary to traumatic injury Hemoglobin 9.6 -Monitor CBC Thrombocytopenia Plt 108 -Monitor CBC Hyponatremia NA 123 Asymptomatic Likely secondary to alcoholism -Monitor, further management per primary Large right pleural effusion As seen on CT CAP at [facility] On room air, No need for emergent CT placement given patient is stable -Management per primary Hypertension SBP in 200s at [facility], amlodipine and hydralazine given ORTHOPEDICS NURSE SBP 140s on arrival -Continue home meds, further management per primary Fall/found down/?Syncope CT head and neck with no acute findings, CAP T/L as above GCS 15 CPK 371 UA from [facility] negative for infection -Would consider carotid duplex and echo ordered -Further management per primary Elevated troponin troponin 28 at [facility] -Recheck troponins here Constipation CT with heavy stool burden, patient reports several days since last BM -Begin bowel regimen Cardiac arrhythmia Atrial fibrillation on monitor -Check EKG, cardiac monitoring INCIDENTAL FINDINGS: Cardiomegaly with biatrial predominance Splenomegaly Remote sternal plate fracture Small low-attenuation lesion involving interpolar cortex of the left kidney posteriorly measuring 8 mm CHIEF COMPLAINT: Fall Notification Time: 1247 Arrival at Bedside: 1255 HISTORY OF PRESENT ILLNESS / INJU (more content not included)... Normal [facility] CPKon 08-13-2024 CPK 320 U/L High 60-225 [facility] Comment on above: Performed By: #### 4 [id number] #### [facility] [address] [place], [place] [address] Galo Monsalve M.D. [id number] ED Procedureon 08-13-2024 ED Procedure ECG 12 Lead Date/Time: 08/13/2024 3:18 AM Performed by: Meghan Westbrook MD Authorized by: Deb Zapien CNP Interpreted by ED attending physician Rhythm: atrial fibrillation BPM: 63 Conduction: incomplete RBBB Clinical impression: controlled atrial fibrillation AUTHENTICATED BY MEGHAN WESTBROOK, ON 08/13/2024 03:18:56 Normal [facility] ED Prov Noteon 08-13-2024 ED Prov Note [facility] EMERGENCY DEPARTMENT ATTENDING NOTE: NAME: Salvador Glass Jr. CSN: [id number] 84 y.o. PCP: Nanci Flores CNP History: Chief Complaint: Fall and Rib Pain HPI: The history was obtained from the patient and chart review . Salvador is a 84 y.o. male who presents with a chief complaint of Fall and Rib Pain. Patient presented to outside emergency room after a fall last night CT showed multiple left-sided rib fractures a small pleural effusion at the base of the left lower lobe and large right pleural effusion which is chronic Patient was transferred here for trauma evaluation Patient denies any current pain PMHx: Past Medical History: Diagnosis Date Arrhythmia A Fib Bradycardia Hypertension Leukopenia Mild anemia Psoriasis Renal failure PMSx: History reviewed. No pertinent surgical history. FAM. Hx: Family History Problem Relation Age of Onset Emphysema Mother Diabetes Father Asthma Father SOC. Hx: Social History Socioeconomic History Marital status: Tobacco Use Smoking status: Former Current packs/day: 0.00 Types: Cigarettes Quit date: 1984 Years since quittin.0 Smokeless tobacco: Never Tobacco comments: quit in his 40s Vaping Use Vaping status: Never Used Substance and Sexual Activity Alcohol use: Yes Comment: 4-6 RUM&COKE A DAY Drug use: Never MEDs: Previous Medications Medication Sig amLODIPine (NORVASC) 5 MG tablet Take 1 (one) tablet (5 mg total) by mouth daily . aspirin 81 MG EC tablet Take 1 (one) tablet (81 mg total) by mouth as needed . b complex vitamins capsule Take 1 (one) capsule by mouth daily . calcium carbonate 168 mg calcium (420 mg) Chew Chew and Swallow daily as needed . clobetasol (TEMOVATE) 0.05 % scalp solution Apply topically daily Apply thin film onto dry scalp affected areas only. Leave in place for 15 min before lathering and rinsing. . folic acid (FOLVITE) 1 MG tablet Take 1 (one) tablet (1 mg total) by mouth daily . tvcrisnv-wkxkwtdzwgx-tr tro, wh (cetaphil) Crea Apply topically . hydrALAZINE (APRESOLINE) 50 MG tablet Take 0.5 (one-half) tablet (25 mg total) by mouth 3 (three) times a day . hydrocortisone 1 % cream Apply topically 2 (two) times a day . ketoconazole (NIZORAL) 2 % cream APPLY CREAM TOPICALLY TO AFFECTED AREA TWICE DAILY pantoprazole (PROTONIX) 40 MG tablet Take 1 (one) tablet (40 mg total) by mouth daily . triamcinolone (KENALOG) 0.1 % cream Apply topically 2 (two) times a day Reasons: Psoriasis of Scalp. ALL: No Known Allergies ROS: Positives and pertinent negatives as per HPI. All other systems were reviewed and are negative. Physical Exam: Patient Vitals for the past 24 hrs: BP Temp Temp src Pulse Resp SpO2 Height Weight 08/13/24 0130 (!) 147/73 -- -- 77 (!) 19 98 % -- -- 08/13/24 0100 (!) 156/71 -- -- 73 16 95 % -- -- 08/13/24 0045 (!) 141/71 -- -- 70 (!) 11 95 % -- -- 08/13/24 0038 (!) 141/71 -- -- -- -- -- -- -- 08/13/24 0032 -- 97.7 degrees F (36.5 degrees C) Oral 76 17 90 % 5' 11 77.1 kg (170 lb) Physical Exam Constitutional: General: He is not in acute distress. Appearance: Normal appearance. HENT: Head: Normocephalic and atraumatic. Eyes: Extraocular Movements: Extraocular movements intact. Conjunctiva/sclera: Conjunctivae normal. Pupils: Pupils are equal, round, and reactive to light. Pulmonary: Effort: Pulmonary effort is normal. No respiratory distress. Skin: Findings: Bruising present. Neurological: Mental Status: He is alert. Laboratory & Radiological Imaging (if done): Labs Reviewed TROPONIN TROPONIN VITAMIN D, TOTAL, 25-OH XR Forearm Left 2 Views (Results Pending) ED Course / Medical Decision Making: I did personally review Salvador's past medical history, surgical history, social history, as well as family history (when relevant). In this case, I also oversaw the his drug management by reviewing his medication list, allergy list, as well as the medications that I prescribed during the ED course and/or recommended as an out-patient (including possible OTC medications such as acetaminophen, NSAIDs , etc). His past medical problem list included: Active Ambulatory Problems Diagnosis Date Noted New onset a-fib (HCC) 03/03/2019 Hypertension 03/03/2019 Lower extremity edema 03/03/2019 Hyponatremia 04/07/2022 Abrasions of multiple sites 04/07/2022 Fall 04/07/2022 Fall 06/07/2022 Contusion of head 06/07/2022 Closed fracture of one rib of left side 06/07/2022 Fall at home, sequela 06/07/2022 Resolved Ambulatory Problems Diagnosis Date Noted No Resolved Ambulatory Problems Past Medical History: Diagnosis Date Arrhythmia Bradycardia Leukopenia Mild anemia Psoriasis Renal failure ED MEDICATIONS GIVEN: Medications acetaminophen (TYLENOL) tablet 650 mg (has no administration in time range) tiZANidine (ZANAFLEX) tablet 2 mg (has no administratio (more content not included)... Normal [facility] H AND Anjum 08-13-2024 H AND P --- Attestation signed by Tran Young DO at 08/13/2024 12:09 PM (Updated) History/CC: ATTESTATION Salvador Glass Jr. was seen and examined on 08/13/2024 morning Salvador Glass Jr.'s main complaints today are fall. Patient also will be worked up for syncope. Also patient was complaining of leg pain due to traumatic rib fracture. Physical Exam: I have reviewed the AIRAM Fellow's history, physical, and assessment / plan and have personally seen and examined Salvador Glass Jr. independently with the following findings: Vital Signs: Temp: [97.6 degrees F (36.4 degrees C)-98.2 degrees F (36.8 degrees C)] 98.2 degrees F (36.8 degrees C) Heart Rate: [63-77] 63 Resp: [11-25] 18 BP: (124-156)/(53-73) 143/71 No intake or output data in the 24 hours ending 08/13/24 0838 GENERAL: No acute distress. HEENT: PERRL. Nose membranes clear, no polyps. Mouth: moist and pink with no exudates. NECK: Supple. Trachea midline. No stridor. CV: regular rate and rhythm, no murmurs, rubs, or gallops noted RESP: Respirations regular, unlabored, breath Sounds clear to auscultation bilaterally. No wheezing, rhonchi or rales. GI: soft, nontender, nondistended, bowel sounds present EXTREMITIES: No cyanosis, clubbing or edema in all 4 extremities. Normal ROM without deformity. NEURO: Alert, oriented x3. Moves all Extremities equally, No focal weakness. SKIN: Warm and dry. Grossly free of rash. DIAGNOSTIC RESULTS/PROCEDURES: I have reviewed the imaging and laboratory studies as summarized in the AIRAM's note. ASSESSMENT/PLAN: Salvador Glass Jr. is a 84 y.o. male with: Fall Traumatic rib fracture Rhabdomyolysis Concern for ileus small bowel ileus Acute blood loss anemia Thrombocytopenia, chronic Hyponatremia Left arm pain Right-sided large pleural effusion Thoracic spine infarction Alcohol use disorder Hypertension Leukopenia A-fib, not on AC Bradycardia Psoriasis Asthma Vitamin D deficiency PLAN: Patient reported syncopal episode resulted in a fall Images reviewed CT thoracic spine showed chronic T2-T3 and T5 infarction CT lumbar spine did not show any lumbar fracture CT cervical spine no evidence of acute fracture CT head no evidence of mass, hemorrhage, or midline shift CT chest and abdomen showed acute fracture of the multiple left lower labs and left-sided rib, right large pleural effusion, consideration of the RLL, no CT abdominal acute findings, possible small bowel ileus Start the patient on clear liquid diet, advance as tolerating Surgery on board, appreciate recommendation Continue pain control Hemoglobin admission 9.6, monitor CBC closely Platelet on admission 108, looks chronically Hyponatremia with sodium 123 on admission, improved to 129, possibly from hypovolemia Follow-up echo and carotid duplex of the carotid arteries Start the patient on vitamin D supplement Thiamine folic acid multivitamin, phenobarbital tapering Replete electrolyte as needed keep k>4, Phos > 3, Mag >2 Code Status is: Full Code [facility] [place] HISTORY AND PHYSICAL -- [facility] Patient Name: Salvador Glass Jr. : 1940 MR #: [id number] Admit Date: 08/13/2024 Physicians: Nanci Flores CNP (Family); No ref. provider found (Referring) Assessment/plan Salvador Glass is a 84 y.o. male patient of Nacni Flores CNP with history of arrhythmia including atrial fibrillation and bradycardia, hypertension, leukopenia, psoriasis, and alcohol abuse presented to [facility] on 08/13/2024 with fall, syncope, traumatic rib fracture. Fall Syncope Patient was found down by placement. He reported episode of syncope. Etiology to be determined, urine drug screen ordered, alcohol level. Continue telemonitoring, check troponin. Consider carotid Doppler and echocardiogram. Traumatic rib fracture Skin ecchymosis over left arm Consult trauma surgery. No clear respiratory distress at this time. Repeat CK level. Pain control. Right-sided large pleural effusion Unclear if this is trauma related or not. Consult pulmonology/critical care if needed. Thoracic spine infarction CT reported T2, T3, and T5 mild endplate infarction. Consult neurosurgery. History of alcohol abuse. Pending UDS and alcohol level. [facility] protocol, replace thiamine and folate. Chronic medical conditions: Hypertension, continue home medications. Leukopenia, continue monitoring. Atrial fibrillation, rate controlled, not on anticoagulation. Bradycardia, continue monitoring. Psoriasis, continue home medications. Asthma, continue home medications. Residence prior to admission: house or apartment Was patient transferred from outlying hospital or ED yes -- care site [facility] Quality Measures DVT Pro (more content not included)... Normal [facility] MAGNESIUM LEVELon 08-13-2024 Magnesium [Mass/Vol] 1.9 mg/dL Normal 1.6-2.4 [facility] Comment on above: Performed By: #### 4 6109 #### LAB [address] [place] [address] Galo Monsalve M.D. [id number] Magnesium [Mass/Vol] 1.7 mg/dL Normal 1.6-2.4 [facility] Comment on above: Performed By: #### 4 6109 #### LAB [address] [place] [address] Galo Monsalve M.D. [id number] PHOSPHORUSon 08-13-2024 Phosphate [Mass/Vol] 2.8 mg/dL Normal 2.3-3.7 [facility] Comment on above: Performed By: #### 4 6109 #### LAB [address] [place] [address] Galo Monsalve M.D. [id number] [facility] Glucose [Mass/Vol] 165 mg/dL High 65-99 [facility] Comment on above: Performed By: #### 4 5145 #### LAB [address] [place] [address] Galo Monsalve M.D. [id number] PT/INRon 08-13-2024 INR Coag (PPP) [Relative time] 1.2 {INR} High 0.8-1.1 [facility] Comment on above: Order Comment: Frantz oliva the induction phase of oral anticoagulation, the INR may not reflect the anticoagulation status of the patient. Therapeutic ranges for INR's are:Most clinical situations: INR 2.0-3.0Mechanical Prosthetic Valve: INR 2.5-3.5Critical: INR >5.0 Performed By: #### 4 5060 #### LAB [address] [place] [address] Galo Monsalve M.D. [id number] PT Coag (PPP) [Time] 15.1 s High 11.8-14.3 [facility] Comment on above: Order Comment: Frantz oliva the induction phase of oral anticoagulation, the INR may not reflect the anticoagulation status of the patient. Therapeutic ranges for INR's are:Most clinical situations: INR 2.0-3.0Mechanical Prosthetic Valve: INR 2.5-3.5Critical: INR >5.0 Performed By: #### 4 5060 #### LAB [address] [place] [address] Galo Monsalve M.D. [id number] TROPONINon 08-13-2024 TROPONIN T DELTA CHANGE INTERPRETATION Probable non-acute cardiac injury or late presentation of acute injury. Normal [facility] Comment on above: Performed By: #### 4 6608 #### LAB [address] [place] [address] Galo Monsalve M.D. [id number] TROPONIN T DELTA DIFFERENCE -5 ng/L Normal < = -/+ 7 change [facility] Comment on above: Performed By: #### 4 6608 #### LAB [address] [place] [address] Galo Monsalve M.D. [id number] TROPONIN T NG/L 23 ng/L Off scale high <=22 [facility] Comment on above: Performed By: #### 4 6608 #### LAB [address] [place] [address] Galo Monsalve M.D. [id number] BASELINE TROPONIN T NG/L 28 ng/L Off scale high <=22 [facility] Comment on above: Performed By: #### 4 5060 #### LAB [address] [place] [address] Galo Monsalve M.D. [id number] TROPONIN T INTERPRETATION Possible acute cardiac injury. Normal [facility] Comment on above: Performed By: #### 4 5060 #### LAB [address] [place] [address] Galo Monsalve M.D. [id number] VITAMIN D, TOTAL, 25-OHon VITAMIN D 25-HYDROXY 12 ng/mL Low 20-100 [facility] Comment on above: Order Comment: Vitam in D Expected ValuesDeficiency: 0-10Insufficiency: 10-20Sufficient: 20-100Toxicity: >100 Performed By: #### 4 6109 #### [address] [place], [place] [address] Galo Monsalve M.D. [id number] XR CHEST PA/APon 08-13-2024 XR CHEST PA/AP EXAMINATION: XR CHEST PA/AP 08/13/2024 9:31 am HISTORY: ORDERING SYSTEM PROVIDED HISTORY: rib fractures, TECHNOLOGIST PROVIDED HISTORY: Injury/Trauma Reason for exam: left sided pain, rib fractures Cancer History: u Surgery, RadiationHistory: u Encounter Type: Initial Mechanism of injury: Fall ORDERING SYSTEM PROVIDED DIAGNOSIS CODES: S22.49XA Closed fracture of multiple ribs, unspecified laterality, initial encounter F10.10 Alcohol abuse E87.1 Hyponatremia COMPARISON: 06/06/2022. FINDINGS: There is pulmonary venous congestion, edema and cardiomegaly. There is a partially loculated effusion on the right with basilar atelectasis versus pneumonia. IMPRESSION: Congestive heart failure and cardiomegaly. Left basilar atelectasis versus pneumonia with a partially loculated effusion. MA/mll Workstation ID: [id number] Dictated by: JENI GARCIA on [place] Aug 13, 2024 5:43:01 PM EST Transcribed by: SEVEN HENSLEY on [place] Aug 13, 2024 5:45:24 PM EST Finalized by: JENI GARCIA on [place] Aug 13, 2024 5:59:10 PM EST Normal [facility] Comment on above: Order Comment: Injur y/Trauma or Illness?:Injury/TraumaHow long have you had these symptoms (acute/chronic)?:AcuteReason for exam?:left sided pain, rib fracturesHistory of cancer?:uSurgeries, chemotherapy, or radiation?:uType of Exam?:InitialMechanism of injury?:Fall XR FOREARM LEFT 2 VIEWSon XR FOREARM LEFT 2 VIEWS EXAMINATION: XR FOREARM LEFT 2 VIEWS 08/13/2024 1:36 am HISTORY: ORDERING SYSTEM PROVIDED HISTORY: trauma, TECHNOLOGIST PROVIDED HISTORY: Injury/Trauma Reason for exam: fall; skin tear; pain toward wrist Cancer History: u Surgery, RadiationHistory: u Encounter Type: Initial Mechanism of injury: na ORDERING SYSTEM PROVIDED DIAGNOSIS CODES: S22.49XA Closed fracture of multiple ribs, unspecified laterality, initial encounter F10.10 Alcohol abuse E87.1 Hyponatremia FINDINGS: There is no fracture, dislocation, or other acute osseous abnormality. Joint spaces are preserved. No radiopaque foreign bodies or abnormal calcifications. IMPRESSION: 1. Normal exam. Workstation ID: [id number] Dictated by: WALTER SALDANA on [place] Aug 13, 2024 4:29:57 AM EST Transcribed by: WALTER SALDANA on [place] Aug 13, 2024 4:29:57 AM EST Finalized by: WALTER SALDANA on [place] Aug 13, 2024 4:29:57 AM EST Normal [facility] Comment on above: Order Comment: Injur y/Trauma or Illness?:Injury/TraumaHow long have you had these symptoms (acute/chronic)?:AcuteReason for exam?:fall; skin tear; pain toward wristHistory of cancer?:uSurgeries, chemotherapy, or radiation?:uType of Exam?:InitialMechanism of injury?:na Alcoholon 08-12-2024 Ethanol [Mass/Vol] mg/dL NINF - 10 mg/dL [facility] Comment on above: For medical use only . CBC W Auto Differential pane l (Bld)on 08-12-2024 Basophils (Bld) [#/Vol] 0.02 10*3/uL [facility] Basophils/100 WBC (Bld) 0.3 % 0.0 - 2.0 % [facility] Eosinophils (Bld) [#/Vol] 0.01 10*3/uL [facility] Eosinophils/100 WBC (Bld) 0.2 % 0.0 - 6.0 % [facility] Erythrocyte distribution width (RBC) [Ratio] 17.8 % High 11.5 - 14.5 % [facility] Hematocrit (Bld) [Volume fraction] 30.5 % Low 41.0 - 52.0 % [facility] Hemoglobin (Bld) [Mass/Vol] 9.6 g/dL Low 13.5 - 17.5 g/dL [facility] Immature granulocytes (Bld) [#/Vol] 0.02 10*3/uL [facility] Immature granulocytes/100 WBC (Bld) 0.3 % 0.0 - 0.9 % [facility] Comment on above: Immature Granulocyte Count (IG) includes promyelocytes, myelocytes and metamyelocytes but does not include bands. Percent differential counts (%) should be interpreted in the context of the absolute cell counts (cells/UL). Interpretation and review of laboratory results Abnormal [facility] Lymphocytes (Bld) [#/Vol] 0.18 10*3/uL Low [facility] Lymphocytes/100 WBC (Bld) 2.9 % 13.0 - 44.0 % [facility] MCH (RBC) [Entitic mass] 24.7 pg Low 26. 0 - 34.0 pg [facility] MCHC (RBC) [Mass/Vol] 31.5 g/dL Low 32.0 - 36.0 g/dL [facility] MCV (RBC) [Entitic vol] 78 fL Low 80 - 100 fL [facility] Monocytes (Bld) [#/Vol] 0.58 10*3/uL [facility] Monocytes/100 WBC (Bld) 9.4 % 2.0 - 10.0 % [facility] Neutrophils (Bld) [#/Vol] 5.39 10*3/uL [facility] Comment on above: Percent differential counts (%) should be interpreted in the context of the absolute cell counts (cells/uL). Neutrophils/100 WBC (Bld) 86.9 % 40.0 - 80.0 % [facility] Nucleated RBC/100 WBC (Bld) [Ratio] 0 % [facility] Platelets (Bld) [#/Vol] 108 10*3/uL [facility] RBC (Bld) [#/Vol] 3.89 10*6/uL [facility] WBC (Bld) [#/Vol] 6.2 10*3/uL [facility] Basophils (Bld) [#/Vol] 0.02 x10*3/uL Normal 0.00-0.10 [facility] Comment on above: Performed By: #### 5 7021-8 #### JOEL ALEN ([id number]) [facility] ([facility]) [address] [place] [address] Basophils/100 WBC (Bld) 0.3 % Normal 0.0-2.0 [facility] Comment on above: Performed By: #### 5 7021-8 #### WISAM LOWRY ([id number]) [facility] ([facility]) [address] [place] [address] Eosinophils (Bld) [#/Vol] 0.01 x10*3/uL Normal 0.00-0.40 [facility] Comment on above: Performed By: #### 7021-8 #### WISAM LOWRY ([id number]) [facility] ([facility]) [address] [place] [address]67[address] Eosinophils/100 WBC (Bld) 0.2 % Normal 0.0-6.0 [facility] Comment on above: Performed By: #### 5 7021-8 #### WISAM LOWRY ([id number]) [facility] ([facility]) [address] [place] [address] 85281 Erythrocyte distribution width (RBC) [Ratio] 17.8 % High 11.5-14.5 [facility] Comment on above: Performed By: #### 5 7021-8 #### WISAM LOWRY ([id number]) [facility] ([facility]) [address] [place] [address] Hematocrit (Bld) [Volume fraction] 30.5 % Low 41.0-52.0 [facility] Comment on above: Performed By: #### 5 7021-8 #### WISAM LOWRY ([id number]) [facility] ([facility]) [address] [place] [address]17[address] Hemoglobin (Bld) [Mass/Vol] 9.6 g/dL Low 13.5-17.5 [facility] Comment on above: Performed By: #### 5 7021-8 #### WISAM LOWRY ([id number]) [facility] ([facility]) [address] [place] [address]271 Immature granulocytes (Bld) [#/Vol] 0.02 x10*3/uL Normal 0.00-0.50 [facility] Comment on above: Performed By: #### 5 7021-8 #### WISAM LOWRY ([id number]) [facility] ([facility]) [address] [place] [address] 78673 Immature granulocytes/100 WBC (Bld) 0.3 % Normal 0.0-0.9 [facility] Comment on above: Result Comment: Ann-Marie ture Granulocyte Count (IG) includes promyelocytes, myelocytes and metamyelocytes but does not include bands. Percent differential counts (%) should be interpreted in the context of the absolute cell counts (cells/UL). Performed By: #### 5 7021-8 #### WISAM LOWRY ([id number]) [facility] ([facility]) [address] [place] [address] Lymphocytes (Bld) [#/Vol] 0.18 x10*3/uL Low 0.80-3.00 [facility] Comment on above: Performed By: #### 5 7021-8 #### WISAM LOWRY ([id number]) [facility] ([facility]) [address] [place] [address] 827[address] Lymphocytes/100 WBC (Bld) 2.9 % Normal 13.0-44.0 [facility] Comment on above: Performed By: #### 5 7021-8 #### WISAM LOWRY ([id number]) [facility] ([facility]) [address] [place] [address] 59838 MCH (RBC) [Entitic mass] 24.7 pg Low 26.0-34.0 [facility] Comment on above: Performed By: #### 5 7021-8 #### WISAM LOWRY ([id number]) [facility] ([facility]) [address] [place] [address] 90159 MCHC (RBC) [Mass/Vol] 31.5 g/dL Low 32.0-36.0 [facility] Comment on above: Performed By: #### 5 7021-8 #### WISAM LOWRY ([id number]) [facility] ([facility]) [address] [place] [address] 88561 MCV (RBC) [Entitic vol] 78 fL Low 80-100 [facility] Comment on above: Performed By: #### 5 7021-8 #### WISAM LOWRY ([id number]) [facility] ([facility]) [address] [place] [address] 32448 Monocytes (Bld) [#/Vol] 0.58 x10*3/uL Normal 0.05-0.80 [facility] Comment on above: Performed By: #### 5 7021-8 #### WISAM LOWRY ([id number]) [facility] ([facility]) [address] [place] [address] 86817 Monocytes/100 WBC (Bld) 9.4 % Normal 2.0-10.0 [facility] Comment on above: Performed By: #### 5 7021-8 #### WISAM LOWRY ([id number]) [facility] ([facility]) [address] [place] [address] 88597 Neutrophils (Bld) [#/Vol] 5.39 x10*3/uL Normal 1.60-5.50 [facility] Comment on above: Result Comment: Perc ent differential counts (%) should be interpreted in the context of the absolute cell counts (cells/uL). Performed By: #### 5 7021-8 #### WISAM LOWRY ([id number]) [facility] ([facility]) [address] [place] [address] [id number] Neutrophils/100 WBC (Bld) 86.9 % Normal 40.0-80.0 [facility] Comment on above: Performed By: #### 5 7021-8 #### WISAM LOWRY ([id number]) [facility] ([facility]) [address] [place] [address] [id number] Nucleated RBC/100 WBC (Bld) [Ratio] 0.0 /100 WBCs Normal 0.0-0.0 [facility] Comment on above: Performed By: #### 5 7021-8 #### WISAM LOWRY ([id number]) [facility] ([facility]) [address] [place] [address] [id number] Platelets (Bld) [#/Vol] 108 x10*3/uL Low 150-450 [facility] Comment on above: Performed By: #### 5 7021-8 #### JOEL ALEN ([id number]) [facility] ([facility]) [facility] [place] [address] RBC (Bld) [#/Vol] 3.89 x10*6/uL Low 4.50-5.90 [facility] Comment on above: Performed By: #### 5 7021-8 #### WISAM LOWRY ([id number]) [facility] ([facility]) [address] [place] [address] WBC (Bld) [#/Vol] 6.2 x10*3/uL Normal 4.4-11.3 [facility] Comment on above: Performed By: #### 5 7021-8 #### JOEL ALEN ([id number]) [facility] ([facility]) [address] [place] [address] CT CERVICAL SPINE WO IV CONT [facility] 08-12-2024 CT CERVICAL SPINE WO IV CONTRAST Interpreted By: Lori Mcfadden, STUDY: CT CERVICAL SPINE WO IV CONTRAST; 08/12/2024 6:12 pm INDICATION: Signs/Symptoms:Fall with head injury. COMPARISON: None. ACCESSION NUMBER(S): [id number] ORDERING CLINICIAN: SHELTON JAY TECHNIQUE: Axial CT images of the cervical spine are obtained. Axial, coronal and sagittal reconstructions are provided for review. FINDINGS: Fractures: There is no evidence for an acute fracture of the cervical spine. Vertebral Alignment: Within normal limits. Craniocervical Junction: The odontoid process and craniocervical junction are intact. Vertebrae/Disc Spaces: Mild multilevel discogenic degenerative changes including disc space narrowing, endplate sclerosis and spurring, worse from C3-C5. Facet joint sclerosis and hypertrophy bilateral multiple levels. Prevertebral/Paraspinal Soft Tissues: No prevertebral soft tissue swelling. Wall calcification of bilateral carotid bulbs. IMPRESSION: 1. No evidence for an acute fracture or subluxation of the cervical spine. 2. Calcified plaques within bilateral carotid bulbs. Recommend clinical correlation. MACRO: None Signed by: Lori Mcfadden 08/12/2024 6:45 PM Dictation workstation: [id number] [facility] CT CHEST ABDOMEN PELVIS W IV CONTRASTon 08-12-2024 CT CHEST ABDOMEN PELVIS W IV CONTRAST Interpreted By: Lori Mcfadden, STUDY: CT CHEST ABDOMEN PELVIS W IV CONTRAST; 08/12/2024 6:19 pm INDICATION: Signs/Symptoms:Fall, traumatic injury to left chest COMPARISON: None. ACCESSION NUMBER(S): [id number] ORDERING CLINICIAN: SHELTON JAY TECHNIQUE: CT of the chest, abdomen, and pelvis was performed. Contiguous axial images were obtained at 5 mm slice thickness through the chest, and at 3 mm through the abdomen and pelvis. Coronal and sagittal reconstructions at 3 mm slice thickness were performed. 100 ML of Omnipaque 350 was administered intravenously without immediate complication. FINDINGS: CHEST: LUNG/PLEURA/LARGE AIRWAYS: Large right pleural effusion with complete consolidation of the right lower lobe. No evidence for left pleural effusion is seen. Mild left basilar atelectasis/scarring or infiltrate. Partial consolidation of the right upper and right middle lobes. Retained mucus secretions within the mid trachea. VESSELS: No traumatic aortic injury is appreciated within the limitations of this non-EKG gated study. Wall calcification of the aorta and its arch branches. Aorta measures normal in caliber. No dissection. Main pulmonary artery and its branches are normal in caliber. Mild coronary artery calcifications are seen.The study is not optimized for evaluation of coronary arteries. HEART: Mildly enlarged bilateral atrial. There is no pericardial effusion. MEDIASTINUM AND ASHLEY: No pneumomediastinum, abnormal mediastinal fluid collection or mediastinal hematoma are appreciated. No mediastinal, hilar or biaxillary adenopathy is present. The esophagus is normal in course and caliber. CHEST WALL AND LOWER NECK: There is diffuse osteopenia. There is mildly displaced acute fracture involving anterolateral aspect of the left 3rd rib best seen on axial image 73. Suspect acute or subacute fracture involving the lateral aspect of the left 4th and 5th ribs. There is an acute comminuted fracture involving lateral/posterior aspect of the left 7th and 8th ribs. There is associated pleural thickening. There is acute, mildly displaced fracture involving posterior aspect of the left 9th rib. Minimal displaced fracture involving posterior aspect of the left 11th rib. No suspicious osseous lesions are identified. Multilevel discogenic degenerative changes throughout the spine. Remote fracture of the sternal plate. ABDOMEN: LIVER: No focal perfusion abnormality of the liver is appreciated to suggest contusion or laceration. There is no subcapsular hematoma, no perihepatic fluid collection. GALLBLADDER: The gallbladder is nondistended without evidence of radiopaque stone. BILE DUCTS: The intahepatic and extrahepatic bile ducts are not dilated. PANCREAS: The pancreas appears unremarkable. SPLEEN: No focal splenic lesions. Spleen measures approximately 14.2 x 9.5 x 13.5 cm in size. ADRENAL GLANDS: The bilateral adrenal glands are unremarkable in appearance. KIDNEYS AND URETERS: Small low-attenuation lesion involving interpolar cortex of the left kidney posteriorly measuring 8 mm in size. No additional renal lesions. No hydronephrosis or hydroureter. No perinephric stranding. PELVIS: BLADDER: The urinary bladder appears within normal limits. REPRODUCTIVE ORGANS: Central calcification of the prostate. No free fluid in the pelvis. No masses or lymphadenopathy. BOWEL: The stomach is normal distended. Mild circumferential mucosal wall thickening of the distal stomach is seen which is nonspecific in etiology may represent incomplete distension, however, inflammatory or infectious/infiltrative process can not be entirely excluded. Gas distended colon. No definite evidence for distal colonic mass is seen. Small bowel normal in caliber. Retained fecal material retained fecal material within the ascending colon and distal small bowel. There is mild twisting of the mesentery, however, no signs of bowel wall ischemia/thickening is identified. VESSELS: The aorta and IVC are within normal limits. The principal vasculature of the abdomen and pelvis is patent. PERITONEUM/RETROPERITON EUM/LYMPH NODES: There is no evidence of intra- or retroperitoneal hematoma. There is no free or loculated fluid collection, no free intraperitoneal air. No abdominopelvic lymphadenopathy is present. BONES AND ABDOMINAL WALL: No evidence of acute fracture or dislocation of the included osseous structures. No suspicious osseous lesions are identified. The abdominal wall soft tissues appear normal. IMPRESSION: CHEST 1. Acute fracture involving multiple left lower ribs and left 3rd rib as above with associated pleural thickening but no evidence for significant left pleural effusion/hemothorax or pneumothorax identified. 2. Large right pleural effusion with associated near complete cons (more content not included)... Normal [facility] CT Cervical spine WO contrlee ton 08-12-2024 1. No evidence for a n acute fracture or subluxation of the cervical spine. 2. Calcified plaques within bilateral carotid bulbs. Recommend clinical correlation. MACRO: None Signed by: Lori Mcfadden 08/12/2024 6:45 PM Dictation workstation: [id number] [facility] Interpreted By: Lori Velasquez, STUDY: CT CERVICAL SPINE WO IV CONTRAST; 08/12/2024 6:12 pm INDICATION: Signs/Symptoms:Fall with head injury. COMPARISON: None. ACCESSION NUMBER(S): [id number] ORDERING CLINICIAN: SHELTON JAY TECHNIQUE: Axial CT images of the cervical spine are obtained. Axial, coronal and sagittal reconstructions are provided for review. FINDINGS: Fractures: There is no evidence for an acute fracture of the cervical spine. Vertebral Alignment: Within normal limits. Craniocervical Junction: The odontoid process and craniocervical junction are intact. Vertebrae/Disc Spaces: Mild multilevel discogenic degenerative changes including disc space narrowing, endplate sclerosis and spurring, worse from C3-C5. Facet joint sclerosis and hypertrophy bilateral multiple levels. Prevertebral/Paraspinal Soft Tissues: No prevertebral soft tissue swelling. Wall calcification of bilateral carotid bulbs. [facility] Lori Mcfadden MD - 08/12/2024 Interpreted By: Lori Mcfadden, STUDY: CT CERVICAL SPINE WO IV CONTRAST; 08/12/2024 6:12 pm INDICATION: Signs/Symptoms:Fall with head injury. COMPARISON: None. ACCESSION NUMBER(S): [id number] ORDERING CLINICIAN: SHELTON JAY TECHNIQUE: Axial CT images of the cervical spine are obtained. Axial, coronal and sagittal reconstructions are provided for review. FINDINGS: Fractures: There is no evidence for an acute fracture of the cervical spine. Vertebral Alignment: Within normal limits. Craniocervical Junction: The odontoid process and craniocervical junction are intact. Vertebrae/Disc Spaces: Mild multilevel discogenic degenerative changes including disc space narrowing, endplate sclerosis and spurring, worse from C3-C5. Facet joint sclerosis and hypertrophy bilateral multiple levels. Prevertebral/Paraspinal Soft Tissues: No prevertebral soft tissue swelling. Wall calcification of bilateral carotid bulbs. IMPRESSION: 1. No evidence for an acute fracture or subluxation of the cervical spine. 2. Calcified plaques within bilateral carotid bulbs. Recommend clinical correlation. MACRO: None Signed by: Lori Mcfadden 08/12/2024 6:45 PM Dictation workstation: [id number] [facility] Work Phone: [facility] Work Phone: Radiology Study observation (narrative) [facility] Work Phone: CT Chest and Abdomen and Pel vis W contrast Maty 08-12-2024 CHEST 1. Acute fracture involving multiple left lower ribs and left 3rd rib as above with associated pleural thickening but no evidence for significant left pleural effusion/hemothorax or pneumothorax identified. 2. Large right pleural effusion with associated near complete consolidation of the right lower lobe but no endobronchial lesion is seen. Partial consolidation of the right middle and right upper lobe also seen. Mild left lung atelectasis/scarring or infiltrate. 3. Diffuse wall calcification of the aorta and coronary arteries. No aortic aneurysm or dissection. 4. Cardiomegaly with biatrial predominance. Recommend clinical correlation and follow-up. ABDOMEN - PELVIS 1. No CT evidence for acute intra-abdominal or intrapelvic injury. 2. Mild splenomegaly but no focal lesions. No signs of splenic vein thrombosis. 3. Small bowel ileus. Early signs of bowel obstruction not entirely excluded. Recommend clinical correlation and follow-up to document resolution. 4. Additional detailed nonacute findings as above. SUPPLEMENTAL INFORMATION: Notifi message was left for SHELTON JAY regarding this exam by Dr. Mcfadden on 08/12/2024 at approximately 19:04 hours. MACRO: None Signed by: Lori Mcfadden 08/12/2024 7:04 PM Dictation workstation: [id number] [facility] Interpreted By: Lori Velasquez, STUDY: CT CHEST ABDOMEN PELVIS W IV CONTRAST; 08/12/2024 6:19 pm INDICATION: Signs/Symptoms:Fall, traumatic injury to left chest COMPARISON: None. ACCESSION NUMBER(S): [id number] ORDERING CLINICIAN: SHELTON JAY TECHNIQUE: CT of the chest, abdomen, and pelvis was performed. Contiguous axial images were obtained at 5 mm slice thickness through the chest, and at 3 mm through the abdomen and pelvis. Coronal and sagittal reconstructions at 3 mm slice thickness were performed. 100 ML of Omnipaque 350 was administered intravenously without immediate complication. FINDINGS: CHEST: LUNG/PLEURA/LARGE AIRWAYS: Large right pleural effusion with complete consolidation of the right lower lobe. No evidence for left pleural effusion is seen. Mild left basilar atelectasis/scarring or infiltrate. Partial consolidation of the right upper and right middle lobes. Retained mucus secretions within the mid trachea. VESSELS: No traumatic aortic injury is appreciated within the limitations of this non-EKG gated study. Wall calcification of the aorta and its arch branches. Aorta measures normal in caliber. No dissection. Main pulmonary artery and its branches are normal in caliber. Mild coronary artery calcifications are seen.The study is not optimized for evaluation of coronary arteries. HEART: Mildly enlarged bilateral atrial. There is no pericardial effusion. MEDIASTINUM AND ASHLEY: No pneumomediastinum, abnormal mediastinal fluid collection or mediastinal hematoma are appreciated. No mediastinal, hilar or biaxillary adenopathy is present. The esophagus is normal in course and caliber. CHEST WALL AND LOWER NECK: There is diffuse osteopenia. There is mildly displaced acute fracture involving anterolateral aspect of the left 3rd rib best seen on axial image 73. Suspect acute or subacute fracture involving the lateral aspect of the left 4th and 5th ribs. There is an acute comminuted fracture involving lateral/posterior aspect of the left 7th and 8th ribs. There is associated pleural thickening. There is acute, mildly displaced fracture involving posterior aspect of the left 9th rib. Minimal displaced fracture involving posterior aspect of the left 11th rib. No suspicious osseous lesions are identified. Multilevel discogenic degenerative changes throughout the spine. Remote fracture of the sternal plate. ABDOMEN: LIVER: No focal perfusion abnormality of the liver is appreciated to suggest contusion or laceration. There is no subcapsular hematoma, no perihepatic fluid collection. GALLBLADDER: The gallbladder is nondistended without evidence of radiopaque stone. BILE DUCTS: The intahepatic and extrahepatic bile ducts are not dilated. PANCREAS: The pancreas appears unremarkable. SPLEEN: No focal splenic lesions. Spleen measures approximately 14.2 x 9.5 x 13.5 cm in size. ADRENAL GLANDS: The bilateral adrenal glands are unremarkable in appearance. KIDNEYS AND URETERS: Small low-attenuation lesion involving interpolar cortex of the left kidney posteriorly measuring 8 mm in size. No additional renal lesions. No hydronephrosis or hydroureter. No perinephric stranding. PELVIS: BLADDER: The urinary bladder appears within normal limits. REPRODUCTIVE ORGANS: Central calcification of the prostate. No free fluid in the pelvis. No masses or lymphadenopathy. BOWEL: The stomach is normal distended. Mild circumferential mucosal wall thickening of the distal stomach is seen which is nonspecific in etiology may represent incomplete distension, however, inflammatory or infectious/infiltrative process can not be entirely excluded. Gas distended colon. No definite evidence for distal colonic mass is seen. Small bowel normal in caliber. Retained fecal material retained fecal material within the ascending colon and distal small bowel. There is mild twisting of the mesentery, however, no signs of bowel wall ischemia/thickening is identified. VESSELS: The aorta and IVC are within normal limits. The principal vasculature of the abdomen and pelvis is patent. PERITONEUM/RETROPERITON EUM/LYMPH NODES: There is no evidence of intra- or retroperitoneal hematoma. There is no free or loculated fluid collection, no free intraperitoneal air. No abdominopelvic lymphadenopathy is present. BONES AND ABDOMINAL WALL: No evidence of acute fracture or dislocation of the included osseous structures. No suspicious osseous lesions are identified. The abdominal wall soft tissues appear normal. [facility] Lori Mcfadden MD - 08/12/2024 Interpreted By: Lori Mcfadden, STUDY: CT CHEST ABDOMEN PELVIS W IV CONTRAST; 08/12/2024 6:19 pm INDICATION: Signs/Symptoms:Fall, traumatic injury to left chest COMPARISON: None. ACCESSION NUMBER(S): [id number] ORDERING CLINICIAN: SHELTON JAY TECHNIQUE: CT of the chest, abdomen, and pelvis was performed. Contiguous axial images were obtained at 5 mm slice thickness through the chest, and at 3 mm through the abdomen and pelvis. Coronal and sagittal reconstructions at 3 mm slice thickness were performed. 100 ML of Omnipaque 350 was administered intravenously without immediate complication. FINDINGS: CHEST: LUNG/PLEURA/LARGE AIRWAYS: Large right pleural effusion with complete consolidation of the right lower lobe. No evidence for left pleural effusion is seen. Mild left basilar atelectasis/scarring or infiltrate. Partial consolidation of the right upper and right middle lobes. Retained mucus secretions within the mid trachea. VESSELS: No traumatic aortic injury is appreciated within the limitations of this non-EKG gated study. Wall calcification of the aorta and its arch branches. Aorta measures normal in caliber. No dissection. Main pulmonary artery and its branches are normal in caliber. Mild coronary artery calcifications are seen.The study is not optimized for evaluation of coronary arteries. HEART: Mildly enlarged bilateral atrial. There is no pericardial effusion. MEDIASTINUM AND ASHLEY: No pneumomediastinum, abnormal mediastinal fluid collection or mediastinal hematoma are appreciated. No mediastinal, hilar or biaxillary adenopathy is present. The esophagus is normal in course and caliber. CHEST WALL AND LOWER NECK: There is diffuse osteopenia. There is mildly displaced acute fracture involving anterolateral aspect of the left 3rd rib best seen on axial image 73. Suspect acute or subacute fracture involving the lateral aspect of the left 4th and 5th ribs. There is an acute comminuted fracture involving lateral/posterior aspect of the left 7th and 8th ribs. There is associated pleural thickening. There is acute, mildly displaced fracture involving posterior aspect of the left 9th rib. Minimal displaced fracture involving posterior aspect of the left 11th rib. No suspicious osseous lesions are identified. Multilevel discogenic degenerative changes throughout the spine. Remote fracture of the sternal plate. ABDOMEN: LIVER: No focal perfusion abnormality of the liver is appreciated to suggest contusion or laceration. There is no subcapsular hematoma, no perihepatic fluid collection. GALLBLADDER: The gallbladder is nondistended without evidence of radiopaque stone. BILE DUCTS: The intahepatic and extrahepatic bile ducts are not dilated. PANCREAS: The pancreas appears unremarkable. SPLEEN: No focal splenic lesions. Spleen measures approximately 14.2 x 9.5 x 13.5 cm in size. ADRENAL GLANDS: The bilateral adrenal glands are unremarkable in appearance. KIDNEYS AND URETERS: Small low-attenuation lesion involving interpolar cortex of the left kidney posteriorly measuring 8 mm in size. No additional renal lesions. No hydronephrosis or hydroureter. No perinephric stranding. PELVIS: BLADDER: The urinary bladder appears within normal limits. REPRODUCTIVE ORGANS: Central calcification of the prostate. No free fluid in the pelvis. No masses or lymphadenopathy. BOWEL: The stomach is normal distended. Mild circumferential mucosal wall thickening of the distal stomach is seen which is nonspecific in etiology may represent incomplete distension, however, inflammatory or infectious/infiltrative process can not be entirely excluded. Gas distended colon. No definite evidence for distal colonic mass is seen. Small bowel normal in caliber. Retained fecal material retained fecal material within the ascending colon and distal small bowel. There is mild twisting of the mesentery, however, no signs of bowel wall ischemia/thickening is identified. VESSELS: The aorta and IVC are within normal limits. The principal vasculature of the abdomen and pelvis is patent. PERITONEUM/RETROPERITON EUM/LYMPH NODES: There is no evidence of intra- or retroperitoneal hematoma. There is no free or loculated fluid collection, no free intraperitoneal air. No abdominopelvic lymphadenopathy is present. BONES AND ABDOMINAL WALL: No evidence of acute fracture or dislocation of the included osseous structures. No suspicious osseous lesions are identified. The abdominal wall soft tissues appear normal. IMPRESSION: CHEST 1. Acute fracture involving multiple left lower ribs and left 3rd rib as above with associated pleural thickening but no evidence for significant left pleural effusion/hemothorax or (more content not included)... [facility] Work Phone: [facility] Work Phone: Radiology Study observation (narrative) [facility] Work Phone: CT HEAD WO IV CONTRASTon CT HEAD WO IV CONTRAST Interpreted By: Lori Mccauley, STUDY: CT HEAD WO IV CONTRAST; 08/12/2024 6:08 pm INDICATION: Signs/Symptoms:Weakness . COMPARISON: None. ACCESSION NUMBER(S): [id number] ORDERING CLINICIAN: SHELTON JAY TECHNIQUE: Noncontrast axial CT scan of head was performed. Angled reformats in brain and bone windows were generated. The images were reviewed in bone, brain, blood and soft tissue windows. FINDINGS: CSF Spaces: Kowy-lg-[id number] brain atrophy evidence by prominence of ventricles, sulci and cisterns. There is no extraaxial fluid collection. Parenchyma: Confluent areas of subcortical and periventricular white matter changes which given patient's age are suggestive of chronic small vessel ischemic disease. The briceño-white differentiation is intact. There is no mass effect or midline shift. There is no intracranial hemorrhage. Calvarium: The calvarium is unremarkable. Paranasal sinuses and mastoids: Visualized paranasal sinuses and mastoids are clear. IMPRESSION: No evidence of acute cortical infarct or intracranial hemorrhage. If there is persistent clinical concern for acute cortical infarction, MRI with diffusion-weighted images is a better means for further evaluation as clinically warranted. MACRO: None Signed by: Lori Mcfadden 08/12/2024 6:44 PM Dictation workstation: [id number] [facility] CT Head WO contraston 2024 No evidence of acute cortical infarct or intracranial hemorrhage. If there is persistent clinical concern for acute cortical infarction, MRI with diffusion-weighted images is a better means for further evaluation as clinically warranted. MACRO: None Signed by: Lori Mcfadden 08/12/2024 6:44 PM Dictation workstation: [id number] [facility] Interpreted By: Lori Velasquez, STUDY: CT HEAD WO IV CONTRAST; 08/12/2024 6:08 pm INDICATION: Signs/Symptoms:Weakness . COMPARISON: None. ACCESSION NUMBER(S): [id number] ORDERING CLINICIAN: SHELTON JAY TECHNIQUE: Noncontrast axial CT scan of head was performed. Angled reformats in brain and bone windows were generated. The images were reviewed in bone, brain, blood and soft tissue windows. FINDINGS: CSF Spaces: Ksfb-ey-kdfoqesy brain atrophy evidence by prominence of ventricles, sulci and cisterns. There is no extraaxial fluid collection. Parenchyma: Confluent areas of subcortical and periventricular white matter changes which given patient's age are suggestive of chronic small vessel ischemic disease. The briceño-white differentiation is intact. There is no mass effect or midline shift. There is no intracranial hemorrhage. Calvarium: The calvarium is unremarkable. Paranasal sinuses and mastoids: Visualized paranasal sinuses and mastoids are clear. [facility] Lori Mcfadden MD - 08/12/2024 Interpreted By: Lori Mcfadden, STUDY: CT HEAD WO IV CONTRAST; 08/12/2024 6:08 pm INDICATION: Signs/Symptoms:Weakness . COMPARISON: None. ACCESSION NUMBER(S): [id number] ORDERING CLINICIAN: SHELTON JAY TECHNIQUE: Noncontrast axial CT scan of head was performed. Angled reformats in brain and bone windows were generated. The images were reviewed in bone, brain, blood and soft tissue windows. FINDINGS: CSF Spaces: Cdlz-qk-notodypo brain atrophy evidence by prominence of ventricles, sulci and cisterns. There is no extraaxial fluid collection. Parenchyma: Confluent areas of subcortical and periventricular white matter changes which given patient's age are suggestive of chronic small vessel ischemic disease. The briceño-white differentiation is intact. There is no mass effect or midline shift. There is no intracranial hemorrhage. Calvarium: The calvarium is unremarkable. Paranasal sinuses and mastoids: Visualized paranasal sinuses and mastoids are clear. IMPRESSION: No evidence of acute cortical infarct or intracranial hemorrhage. If there is persistent clinical concern for acute cortical infarction, MRI with diffusion-weighted images is a better means for further evaluation as clinically warranted. MACRO: None Signed by: Lori Mcfadden 08/12/2024 6:44 PM Dictation workstation: [id number] [facility] Work Phone: Radiology Study observation (narrative) [facility] Work Phone: CT Head WO contrastOrdered B y: Lori Mcfadden on 08-12-2024 [facility] Work Phone: CT LUMBAR SPINE WO IV CONTRA STon 08-12-2024 CT LUMBAR SPINE WO IV CONTRAST Interpreted By: Miguel Peterson, STUDY: CT THORACIC SPINE WO IV CONTRAST; CT LUMBAR SPINE WO IV CONTRAST; 08/12/2024 8:04 pm INDICATION: Signs/Symptoms:Trauma. COMPARISON: None. ACCESSION NUMBER(S): [id number]; [id number] ORDERING CLINICIAN: ROSI LLOYD TECHNIQUE: Axial, coronal and sagittal reconstructions of the thoracic and lumbar spine were created using data from CT chest, abdomen and pelvis and are submitted for review. FINDINGS: Alignment: Within normal limits. Vertebrae/Intervertebra l Discs: Osteopenia. Age-indeterminate mild superior endplate infractions of T2, T3 and T5. Please correlate clinically with mechanism of injury physical exam findings. The thoracic and lumbar vertebral body heights are otherwise intact. Diffuse mild discogenic degeneration. Moderate hypertrophic facet osteoarthropathy. There is no significant central canal stenosis. Paraspinous Soft Tissues: Within normal limits. Please see separately dictated report for prior CT chest, abdomen and pelvis from earlier the same day for details regarding the extra-spinal anatomy. IMPRESSION: No acute thoracic or lumbar spine fracture or malalignment. Please see separately dictated report for prior CT chest, abdomen and pelvis from earlier the same day for details regarding the extra-spinal anatomy. MACRO: None Signed by: Miguel Peterson 08/12/2024 8:33 PM Dictation workstation: [id number] [facility] CT THORACIC SPINE WO IV CONT Emily 08-12-2024 CT THORACIC SPINE WO IV CONTRAST Interpreted By: Miguel Peterson, STUDY: CT THORACIC SPINE WO IV CONTRAST; CT LUMBAR SPINE WO IV CONTRAST; 08/12/2024 8:04 pm INDICATION: Signs/Symptoms:Trauma. COMPARISON: None. ACCESSION NUMBER(S): [id number]; [id number] ORDERING CLINICIAN: ROSI LLOYD TECHNIQUE: Axial, coronal and sagittal reconstructions of the thoracic and lumbar spine were created using data from CT chest, abdomen and pelvis and are submitted for review. FINDINGS: Alignment: Within normal limits. Vertebrae/Intervertebra l Discs: Osteopenia. Age-indeterminate mild superior endplate infractions of T2, T3 and T5. Please correlate clinically with mechanism of injury physical exam findings. The thoracic and lumbar vertebral body heights are otherwise intact. Diffuse mild discogenic degeneration. Moderate hypertrophic facet osteoarthropathy. There is no significant central canal stenosis. Paraspinous Soft Tissues: Within normal limits. Please see separately dictated report for prior CT chest, abdomen and pelvis from earlier the same day for details regarding the extra-spinal anatomy. IMPRESSION: No acute thoracic or lumbar spine fracture or malalignment. Please see separately dictated report for prior CT chest, abdomen and pelvis from earlier the same day for details regarding the extra-spinal anatomy. MACRO: None Signed by: Miguel Peterson 08/12/2024 8:33 PM Dictation workstation: [id number] Normal [facility] Cardiac Enzymes - CPKon 08-02 CK [Catalytic activity/Vol] 371 U/L High 0 - 325 U/L [facility] Comprehensive metabolic 2000 panelon 08-12-2024 Albumin BCP dye [Mass/Vol] 3.8 g/dL 3.4 - 5.0 g/dL [facility] ALP [Catalytic activity/Vol] 53 U/L 33 - 136 U/L [facility] ALT With P-5'-P [Catalytic activity/Vol] 13 U/L 10 - 52 U/L [facility] Comment on above: Patients treated wit h Sulfasalazine may generate falsely decreased results for ALT. Anion gap [Moles/Vol] 12 mmol/L 10 - 2 0 mmol/L [facility] AST With P-5'-P [Catalytic activity/Vol] 27 U/L 9 - 39 U/L [facility] Bilirubin [Mass/Vol] 1.6 mg/dL High 0.0 - 1 .2 mg/dL [facility] Calcium [Mass/Vol] 8.4 mg/dL Low 8.6 - 10. 3 mg/dL [facility] Chloride [Moles/Vol] 92 mmol/L Low 98 - 10 7 mmol/L [facility] CO2 [Moles/Vol] 23 mmol/L 21 - 32 mmol/L [facility] Creatinine [Mass/Vol] 0.48 mg/dL Low 0.50 - 1.30 mg/dL [facility] eGFR - PINF [facility] Comment on above: Calculations of yadira mated GFR are performed using the 2020 CKD-EPI Study Refit equation without the race variable for the IDMS-Traceable creatinine methods. https://jasn.asnjournals.org/content/early//ASN.236 6298539 Glucose [Mass/Vol] 115 mg/dL High 74 - 99 mg/dL [facility] Potassium [Moles/Vol] 3.6 mmol/L 3.5 - 5.3 mmol/L [facility] Protein [Mass/Vol] 6.5 g/dL 6.4 - 8.2 g/dL [facility] Sodium [Moles/Vol] 123 mmol/L Low 136 - 145 mmol/L [facility] Urea nitrogen [Mass/Vol] 11 mg/dL 6 - 23 mg/dL [facility] Albumin BCP dye [Mass/Vol] 3.8 g/dL Normal 3.4-5.0 [facility] Comment on above: Performed By: #### 2 4323-8 #### WISAM LOWRY ([id number]) [facility] ([facility]) [address] [place] [address]29 ALP [Catalytic activity/Vol] 53 U/L Normal 33-136 [facility] Comment on above: Performed By: #### 2 4323-8 #### WISAM LOWRY ([id number]) [facility] ([facility]) [address] [place] [address] 19576 ALT With P-5'-P [Catalytic activity/Vol] 13 U/L Normal 10-52 [facility] Comment on above: Result Comment: Dennise ents treated with Sulfasalazine may generate falsely decreased results for ALT. Performed By: #### 2 4323-8 #### WISAM LOWRY ([id number]) [facility] ([facility]) [address] [place] [address] Anion gap [Moles/Vol] 12 mmol/L Normal 10-20 [facility] Comment on above: Performed By: #### 2 432-8 #### WISAM LOWRY ([id number]) [facility] ([facility]) [address] [place] [address] AST With P-5'-P [Catalytic activity/Vol] 27 U/L Normal 9-39 [facility] Comment on above: Performed By: #### 2 4323-8 #### WISAM LOWRY ([id number]) [facility] ([facility]) [address] [place] [address] Bilirubin [Mass/Vol] 1.6 mg/dL High 0.0-1.2 [facility] Comment on above: Performed By: #### 2 4323-8 #### WISAM LOWRY ([id number]) [facility] ([facility]) [address] [place] [address] Calcium [Mass/Vol] 8.4 mg/dL Low 8.6-10.3 [facility] Comment on above: Performed By: #### 2 4323-8 #### WISAM LOWRY ([id number]) [facility] ([facility]) [address] [place] [address] Chloride [Moles/Vol] 92 mmol/L Low 98-107 [facility] Comment on above: Performed By: #### 2 4323-8 #### WISAM LOWRY ([id number]) [facility] ([facility]) [address] [place] [address] CO2 [Moles/Vol] 23 mmol/L Normal 21-32 [facility] Comment on above: Performed By: #### 2 4323-8 #### WISAM LOWRY ([id number]) [facility] ([facility]) [address] [place] [address] 20527 Creatinine [Mass/Vol] 0.48 mg/dL Low 0.50-1.30 [facility] Comment on above: Performed By: #### 2 4323-8 #### WISAM LOWRY ([id number]) [facility] ([facility]) [address] [place] [address] 32595 GFR/1.73 sq M.predicted MDRD (S/P/Bld) [Vol rate/Area] mL/min/{1.73_m2} Normal >60 [facility] Comment on above: Result Comment: Calc ulations of estimated GFR are performed using the 2020 CKD-EPI Study Refit equation without the race variable for the IDMS-Traceable creatinine methods. https://jasn.asnjournals.org/content/early//ASN.059 7516259 Performed By: #### 2 432-8 #### WISAM LOWRY ([id number]) [facility] ([facility]) [address] [place] [address] 14616 Glucose [Mass/Vol] 115 mg/dL High 74-99 [facility] Comment on above: Performed By: #### 2 432-8 #### WISAM LOWRY ([id number]) [facility] ([facility]) [address] [place] [address] 09907 Potassium [Moles/Vol] 3.6 mmol/L Normal 3.5-5.3 [facility] Comment on above: Performed By: #### 2 4323-8 #### WISAM LOWRY ([id number]) [facility] ([facility]) [address] [place] [address] 48841 Protein [Mass/Vol] 6.5 g/dL Normal 6.4-8.2 [facility] Comment on above: Performed By: #### 2 4323-8 #### WISAM LOWRY ([id number]) [facility] ([facility]) [address] [place] [address] Sodium [Moles/Vol] 123 mmol/L Low 136-145 [facility] Comment on above: Performed By: #### 2 4323-8 #### WISAM LOWRY ([id number]) [facility] ([facility]) [address] [place] [address] 63671 Urea nitrogen [Mass/Vol] 11 mg/dL Normal 6-23 [facility] Comment on above: Performed By: #### 2 4323-8 #### WISAM LOWRY ([id number]) [facility] ([facility]) [address] [place] [address] 08913 Creatine kinaseon 08-12-2024 CK [Catalytic activity/Vol] 371 U/L High 0-325 [facility] Comment on above: Performed By: #### 2 157-6 #### WISAM LOWRY ([id number]) [facility] ([facility]) [address] [place], [place] [address] ECG 12-LEADon 08-12-2024 ECG 12-LEAD Ventricular Rate 91 QRS Duration 108 Q-T Interval 356 QTC Calculation(Bazett) 437 R Grady 88 T Grady 89 QRS Count 15 Q Onset 198 T Offset 376 QTC Fredericia 409 Diagnosis Atrial fibrillation Incomplete right bundle branch block ST depression, consider subendocardial injury Abnormal ECG No previous ECGs available See ED provider note for full interpretation and clinical correlation Confirmed by Jes Mccormack ([id number]) on 08/21/2024 11:10:41 AM Normal [facility] Ethanolon 08-12-2024 Ethanol [Mass/Vol] mg/dL Normal <=10 [facility] Comment on above: Result Comment: For medical use only. Performed By: #### 5 8077-9 #### WISAM LOWRY ([id number]) [facility] ([facility]) [address] [place] [address] Ethanol [Mass/Vol]on 025 Interpretation and review of laboratory results Normal [facility] Lactateon 08-12-2024 Lactate [Moles/Vol] 1.3 mmol/L 0.4 - 2. 0 mmol/L [facility] Lactate [Moles/Vol] 1.3 mmol/L Normal 0.4-2.0 [facility] Comment on above: Order Comment: Venip uncture immediately after or during the administration of Metamizole may lead to falsely low results. Testing should be performed immediately prior to Metamizole dosing. Performed By: #### 2 524-7 #### JOEL ALEN ([id number]) [facility] ([facility]) [address] [place] [address] Lactate [Moles/Vol]on 2024 Interpretation and review of laboratory results Normal [facility] Venipuncture immediately after or during the administration of Metamizole may lead to falsely low results. Testing should be performed immediately prior to Metamizole dosing. [facility] No Panel Informationon 08-12 No acute thoracic or lumbar spine fracture or malalignment. Please see separately dictated report for prior CT chest, abdomen and pelvis from earlier the same day for details regarding the extra-spinal anatomy. MACRO: None Signed by: Miguel Peterson 08/12/2024 8:33 PM Dictation workstation: [id number] Interpreted By: Miguel Braun, STUDY: CT THORACIC SPINE WO IV CONTRAST; CT LUMBAR SPINE WO IV CONTRAST; 08/12/2024 8:04 pm INDICATION: Signs/Symptoms:Trauma. COMPARISON: None. ACCESSION NUMBER(S): [id number]; [id number] ORDERING CLINICIAN: ROSI LLOYD TECHNIQUE: Axial, coronal and sagittal reconstructions of the thoracic and lumbar spine were created using data from CT chest, abdomen and pelvis and are submitted for review. FINDINGS: Alignment: Within normal limits. Vertebrae/Intervertebra l Discs: Osteopenia. Age-indeterminate mild superior endplate infractions of T2, T3 and T5. Please correlate clinically with mechanism of injury physical exam findings. The thoracic and lumbar vertebral body heights are otherwise intact. Diffuse mild discogenic degeneration. Moderate hypertrophic facet osteoarthropathy. There is no significant central canal stenosis. Paraspinous Soft Tissues: Within normal limits. Please see separately dictated report for prior CT chest, abdomen and pelvis from earlier the same day for details regarding the extra-spinal anatomy. MMODAL Miguel Peterson MD - 08/12/2024 Interpreted By: Miguel Peterson, STUDY: CT THORACIC SPINE WO IV CONTRAST; CT LUMBAR SPINE WO IV CONTRAST; 08/12/2024 8:04 pm INDICATION: Signs/Symptoms:Trauma. COMPARISON: None. ACCESSION NUMBER(S): [id number]; [id number] ORDERING CLINICIAN: ROSI LLOYD TECHNIQUE: Axial, coronal and sagittal reconstructions of the thoracic and lumbar spine were created using data from CT chest, abdomen and pelvis and are submitted for review. FINDINGS: Alignment: Within normal limits. Vertebrae/Intervertebra l Discs: Osteopenia. Age-indeterminate mild superior endplate infractions of T2, T3 and T5. Please correlate clinically with mechanism of injury physical exam findings. The thoracic and lumbar vertebral body heights are otherwise intact. Diffuse mild discogenic degeneration. Moderate hypertrophic facet osteoarthropathy. There is no significant central canal stenosis. Paraspinous Soft Tissues: Within normal limits. Please see separately dictated report for prior CT chest, abdomen and pelvis from earlier the same day for details regarding the extra-spinal anatomy. IMPRESSION: No acute thoracic or lumbar spine fracture or malalignment. Please see separately dictated report for prior CT chest, abdomen and pelvis from earlier the same day for details regarding the extra-spinal anatomy. MACRO: None Signed by: Miguel Peterson 08/12/2024 8:33 PM Dictation workstation: [id number] [facility] Work Phone: Radiology Study observation (narrative) [facility] Work Phone: Interpretation and review of laboratory results Abnormal [facility] No Panel InformationOrdered By: Miguel Peterson on 08-12-2024 [facility] Work Phone: Tropinin I.cardiac panel Hig h sensitivity methodon 08-12-2024 Interpretation and review of laboratory results Abnormal [facility] Less than 99th percentile of normal range cutoff- Female and children under 18 years old <14 ng/L; Male <21 ng/L: Negative Repeat testing should be performed if clinically indicated. Female and children under 18 years old 14-50 ng/L; Male 21-50 ng/L: Consistent with possible cardiac damage and possible increased clinical risk. Serial measurements may help to assess extent of myocardial damage. >50 ng/L: Consistent with cardiac damage, increased clinical risk and myocardial infarction. Serial measurements may help assess extent of myocardial damage. NOTE: Children less than 1 year old may have higher baseline troponin levels and results should be interpreted in conjunction with the overall clinical context. NOTE: Troponin I testing is performed using a different testing methodology at [facility] than at other [facility]. Direct result comparisons should only be made within the same method. [facility] Interpretation and review of laboratory results Normal [facility] Less than 99th percentile of normal range cutoff- Female and children under 18 years old <14 ng/L; Male <21 ng/L: Negative Repeat testing should be performed if clinically indicated. Female and children under 18 years old 14-50 ng/L; Male 21-50 ng/L: Consistent with possible cardiac damage and possible increased clinical risk. Serial measurements may help to assess extent of myocardial damage. >50 ng/L: Consistent with cardiac damage, increased clinical risk and myocardial infarction. Serial measurements may help assess extent of myocardial damage. NOTE: Children less than 1 year old may have higher baseline troponin levels and results should be interpreted in conjunction with the overall clinical context. NOTE: Troponin I testing is performed using a different testing methodology at [facility] than at other [facility]. Direct result comparisons should only be made within the same method. [facility] Troponin I, High Sensitivity , Initialon 08-12-2024 Tropinin I.cardiac panel High sensitivity method 17 ng/L 0 - 20 ng/L [facility] Troponin I.cardiac panelon 0 08-12-2024 Tropinin I.cardiac panel High sensitivity method 28 ng/L High 0-20 [facility] Comment on above: Order Comment: Less than 99th percentile of normal range cutoff-Female and children under 18 years old <14 ng/L; Male <21 ng/L: NegativeRepeat testing should be performed if clinically indicated.Female and children under 18 years old 14-50 ng/L; Male 21-50 ng/L:Consistent with possible cardiac damage and possible increased clinicalrisk. Serial measurements may help to assess extent of myocardial damage.>50 ng/L: Consistent with cardiac damage, increased clinical risk andmyocardial infarction. Serial measurements may help assess extent ofmyocardial damage.NOTE: Children less than 1 year old may have higher baseline troponinlevels and results should be interpreted in conjunction with the overallclinical context.NOTE: Troponin I testing is performed using a differenttesting methodology at [facility] than at [facility]. Direct result comparisons should onlybe made within the same method. Performed By: #### 5 8077-9 #### WISAM LOWRY ([id number]) [facility] ([facility]) [facility] [place] [id number] Tropinin I.cardiac panel High sensitivity method 17 ng/L Normal 0-20 [facility] Comment on above: Order Comment: Less than 99th percentile of normal range cutoff- Female and children under 18 years old <14 ng/L; Male <21 ng/L: Negative Repeat testing should be performed if clinically indicated. Female and children under 18 years old 14-50 ng/L; Male 21-50 ng/L: Consistent with possible cardiac damage and possible increased clinical risk. Serial measurements may help to assess extent of myocardial damage. >50 ng/L: Consistent with cardiac damage, increased clinical risk and myocardial infarction. Serial measurements may help assess extent of myocardial damage. NOTE: Children less than 1 year old may have higher baseline troponin levels and results should be interpreted in conjunction with the overall clinical context. NOTE: Troponin I testing is performed using a different testing methodology at [facility] than at [facility]. Direct result comparisons should only be made within the same method. Performed By: #### 8 9577-1 #### WISAM LOWRY ([id number]) [facility] ([facility]) [facility] [place] [id number] Troponin, High Sensitivity, 1 Houron 08-12-2024 Tropinin I.cardiac panel High sensitivity method 28 ng/L High 0 - 20 ng/L [facility] Urinalysis complete W Reflex Culture panel (U)on 08-12-2024 Appearance (U) Clear Clear [facility] Bilirubin (U) [Mass/Vol] Negative NEGATIVE [facility] Color (U) Yellow Light-Yello w, Yellow, Dark-Yellow [facility] Glucose Auto test strip (U) [Mass/Vol] Normal Normal mg/dL [facility] Interpretation and review of laboratory results Abnormal [facility] Ketones (U) [Mass/Vol] 20 (1+) Abnormal NEGAT SOMMER mg/dL [facility] Leukocyte esterase Auto test strip Ql (U) Negative NEGATIVE [facility] Mucus Auto (Urine sed) [#/Area] FEW Reference range not established . /LPF [facility] Nitrite Auto test strip Ql (U) Negative NEGATIVE [facility] pH (U) 6 [pH] 5.0, 5.5, 6.0, 6.5, 7.0, 7.5, 8.0 [facility] Protein (U) [Mass/Vol] 200 (2+) Abnormal NEGAT SOMMER, 10 (TRACE), 20 (TRACE) mg/dL [facility] RBC (U) [#/Vol] 0.2 (2+) Abnormal NEGATIVE [facility] RBC Auto (Urine sed) [#/Area] 1-2 NONE, 1-2, 3-5 /HPF [facility] Specific gravity (U) [Rel density] 1.016 1.005 - 1.035 [facility] Urobilinogen (U) [Mass/Vol] Normal Normal mg/dL [facility] WBC Auto (Urine sed) [#/Area] 1-5 1-5, NONE /HPF [facility] Appearance (U) Clear Normal Clear [facility] Comment on above: Performed By: #### 5 8077-9 #### WISAM LOWRY ([id number]) [facility] ([facility]) [address] [place] [address] Bilirubin (U) [Mass/Vol] Negative Normal NEGATIVE [facility] Comment on above: Performed By: #### 5 8077-9 #### WISAM OLWRY ([id number]) [facility] ([facility]) [address] [place], [place] [address] Color (U) Yellow Normal Light-Yello w, Yellow, Dark-Yellow [facility] Comment on above: Performed By: #### 5 8077-9 #### WISAM LOWRY ([id number]) [facility] ([facility]) [address] [place] [address] Glucose Auto test strip (U) [Mass/Vol] Normal Normal Normal [facility] Comment on above: Performed By: #### 5 8077-9 #### WISAM LOWRY ([id number]) [facility] ([facility]) [address] [place] [address] 18187 Ketones (U) [Mass/Vol] 20 (1+) [facility] on above: Performed By: #### 5 8077-9 #### WISAM LOWRY ([id number]) [facility] ([facility]) [address] [place], [place] [address] Leukocyte esterase Auto test strip Ql (U) Negative Normal NEGATIVE [facility] Comment on above: Performed By: #### 5 8077-9 #### WISAM LOWRY ([id number]) [facility] ([facility]) [address] [place] [address] Mucus Auto (Urine sed) [#/Area] FEW Normal Reference range not established . [facility] Comment on above: Performed By: #### 5 8077-9 #### WISAM LOWRY ([id number]) [facility] ([facility]) [address] [place] [address] Nitrite Auto test strip Ql (U) Negative Normal NEGATIVE [facility] Comment on above: Performed By: #### 5 8077-9 #### WISAM LOWRY ([id number]) [facility] ([facility]) [address] [place], [place] [address] pH (U) 6.0 [pH] Normal 5.0, 5.5, 6.0, 6.5, 7.0, 7.5, 8.0 [facility] Comment on above: Performed By: #### 5 8077-9 #### WISAM LOWRY ([id number]) [facility] ([facility]) [address] [place] [address]42[address] Protein (U) [Mass/Vol] 200 (2+) Abnormal NEGAT SOMMER, 10 (TRACE), 20 (TRACE) [facility] Comment on above: Performed By: #### 5 8077-9 #### WISAM LOWRY ([id number]) [facility] ([facility]) [address] [place] [address] RBC (U) [#/Vol] 0.2 (2+) Abnormal NEGATIVE [facility] Comment on above: Performed By: #### 5 8077-9 #### WISAM LOWRY ([id number]) [facility] ([facility]) [address] [place] [address] RBC Auto (Urine sed) [#/Area] 1-2 Normal NONE, 1-2, 3-5 [facility] Comment on above: Performed By: #### 5 8077-9 #### WISAM LOWRY ([id number]) [facility] ([facility]) [address] [place] [address] Specific gravity (U) [Rel density] 1.016 Normal 1.005-1.035 [facility] Comment on above: Performed By: #### 5 8077-9 #### WISAM LOWRY ([id number]) [facility] ([facility]) [address] [place] [id number] Urobilinogen (U) [Mass/Vol] Normal Normal Normal [facility] Comment on above: Performed By: #### 5 8077-9 #### WISAM LORWY ([id number]) [facility] ([facility]) [address] [place] [address] WBC Auto (Urine sed) [#/Area] 1-5 Normal 1-5, NONE [facility] Comment on above: Performed By: #### 5 8077-9 #### WISAM LOWRY ([id number]) [facility] ([facility]) [address] [place] [address] OCT MACULA CIRRUS OU (BOTH E YES)on 03-27-2024 [facility] Radiology Study observation (narrative) [facility] ECG 12 Leadon 09-03-2022 Atrial [facility] P-R Interval [facility] Q-T Interval [facility] Q-T Interval (corrected) [facility] QRS Duration [facility] QTC Calculation (Bezet) [facility] T Grady [facility] Ventricular Rate [facility] Basic metabolic 2000 panelon 06-08-2022 Anion gap [Moles/Vol] 11 mmol/L 10 - 2 0 mmol/L [facility] Calcium [Mass/Vol] 8.3 mg/dL Low 8.4 - 10. 2 mg/dL [facility] Chloride [Moles/Vol] 99 mmol/L 98 - 10 8 mmol/L [facility] Creatinine [Mass/Vol] 0.52 mg/dL Low 0.80 - 1.30 mg/dL [facility] GFR/1.73 sq M.predicted CKD-EPI (S/P/Bld) [Vol rate/Area] 102 - PINF [facility] Comment on above: Estimated GFR was ca lculated using the 2020 CKD-EPI creatinine equation. Glucose [Mass/Vol] 85 mg/dL 65 - 99 mg/dL [facility] HCO3 [Moles/Vol] 25 mmol/L 21 - 32 mmol/L [facility] Interpretation and review of laboratory results Abnormal [facility] Potassium [Moles/Vol] 4.0 mmol/L 3.5 - 5.1 mmol/L [facility] Sodium [Moles/Vol] 131 mmol/L Low 135 - 145 mmol/L [facility] Urea nitrogen [Mass/Vol] 7 mg/dL Low 8 - 25 mg/dL [facility] Urea nitrogen/Creatinine [Mass ratio] 13.5 mg/mg 10 - 20 [facility] has implemented the eGFR calculation approach that does not have a coefficient for race that conforms to the NKF-ASN Task Force Recommendations. [facility] CBC panel Auto (Bld)on 06-08 Erythrocyte distribution width (RBC) [Entitic vol] 15.1 % High 11.6 - 14.8 % [facility] Hematocrit (Bld) [Volume fraction] 26.1 % Low 41 - 53 % [facility] Hemoglobin (Bld) [Mass/Vol] 8.0 g/dL Low 13.5 - 17.5 g/dL [facility] Interpretation and review of laboratory results Abnormal [facility] MCH (RBC) [Entitic mass] 27.1 pg 26 - 34 pg [facility] MCHC (RBC) [Mass/Vol] 30.7 g/dL Low 31 - 3 7 g/dL [facility] MCV (RBC) [Entitic vol] 88.5 fL 80 - 100 fL [facility] Nucleated RBC (Bld) [#/Vol] 0.00 10*3/uL [facility] Nucleated RBC/100 WBC (Bld) [Ratio] 0.0 % [facility] Platelet mean volume (Bld) [Entitic vol] 9.0 fL Low 9.4 - 12.4 fL [facility] Platelets (Bld) [#/Vol] 155 10*3/uL [facility] RBC (Bld) [#/Vol] 2.95 10*6/uL Low [facility] ealth WBC (Bld) [#/Vol] 3.27 10*3/uL Low [facility] ealth [facility] EKG 12-leadon 06-08-2022 Atrial Rate 68 BPM [facility] Q-T Interval 420 ms [facility] QRS Duration 122 ms [facility] QTC Calculation (Bezet) 450 ms [facility] 91 degrees [facility] T Grady 79 degrees [facility] Ventricular Rate [address] [facility] Atrial fibrillation Rightward axis Nonspecific intraventricular conduction delay Nonspecific ST abnormality Abnormal ECG ECG Cart Interpretation see physician note for interpretation. Confirmed by Kirstin Kaur ([id number]) on 06/08/2022 1:49:18 PM [facility] Magnesiumon 06-08-2022 Magnesium [Mass/Vol] 1.7 mg/dL 1.6 - 2 .4 mg/dL [facility] Magnesium [Mass/Vol]on 06-08 Interpretation and review of laboratory results Normal [facility] No Panel Informationon 06-08 [facility] Basic metabolic 1998 panelon 06-07-2022 Anion gap [Moles/Vol] 16 mmol/L 10 - 2 0 mmol/L [facility] Chloride [Moles/Vol] 102 mmol/L 98 - 10 8 mmol/L [facility] Creatinine [Mass/Vol] 0.56 mg/dL Low 0.80 - 1.30 mg/dL [facility] GFR/1.73 sq M.predicted CKD-EPI (S/P/Bld) [Vol rate/Area] 100 - PINF [facility] Comment on above: Estimated GFR was ca lculated using the 2020 CKD-EPI creatinine equation. Glucose [Mass/Vol] 79 mg/dL 65 - 99 mg/dL [facility] HCO3 [Moles/Vol] 21 mmol/L 21 - 32 mmol/L [facility] Interpretation and review of laboratory results Abnormal [facility] Potassium [Moles/Vol] 4.1 mmol/L 3.5 - 5.1 mmol/L [facility] Sodium [Moles/Vol] 135 mmol/L 135 - 145 mmol/L [facility] Urea nitrogen [Mass/Vol] 7 mg/dL Low 8 - 25 mg/dL [facility] Urea nitrogen/Creatinine [Mass ratio] 12.5 mg/mg 10 - 20 [facility] has implemented the eGFR calculation approach that does not have a coefficient for race that conforms to the NKF-ASN Task Force Recommendations. [facility] CBC panel Auto (Bld)on 06-07 Erythrocyte distribution width (RBC) [Entitic vol] 14.9 % High 11.6 - 14.8 % [facility] Hematocrit (Bld) [Volume fraction] 30.7 % Low 41 - 53 % [facility] Hemoglobin (Bld) [Mass/Vol] 9.4 g/dL Low 13.5 - 17.5 g/dL [facility] Interpretation and review of laboratory results Abnormal [facility] MCH (RBC) [Entitic mass] 27.3 pg 26 - 34 pg [facility] MCHC (RBC) [Mass/Vol] 30.6 g/dL Low 31 - 3 7 g/dL [facility] MCV (RBC) [Entitic vol] 89.2 fL 80 - 100 fL [facility] Nucleated RBC (Bld) [#/Vol] 0.00 10*3/uL [facility] Nucleated RBC/100 WBC (Bld) [Ratio] 0.0 % [facility] Platelet mean volume (Bld) [Entitic vol] 8.7 fL Low 9.4 - 12.4 fL [facility] Platelets (Bld) [#/Vol] 152 10*3/uL [facility] RBC (Bld) [#/Vol] 3.44 10*6/uL Low [facility] WBC (Bld) [#/Vol] 4.54 10*3/uL [facility] CT Cervical Spine Without Co ntraston 06-07-2022 1. No acute cervical spine findings. Chronic changes are described above. 2. Small bilateral mastoid effusions. 3. Right pleural effusion with nonspecific increased interstitial markings at the lung apices. Mild pulmonary edema cannot be excluded. Workstation ID: [id number] [place] EXAMINATION: CT CERVICAL SPINE WITHOUT CONTRAST, 06/07/2022: HISTORY: fall COMPARISON: CT cervical spine, 04/06/2022. TECHNIQUE: Nonenhanced CT imaging of the cervical spine was performed with sagittal and coronal reconstructions. Dose reduction techniques were achieved by using automated exposure control and/or adjustment of mA and/or kV according to patient size and/or use of iterative reconstruction technique. FINDINGS: No acute osseous or articular abnormality is seen. The cervical vertebral bodies are normal in height and alignment. There is fairly advanced degenerative disc disease at C5-C6 and C6-C7. Skull base alignment is anatomic. The articular facets are normally aligned. On the right, there is moderate neural foraminal narrowing at C5-C6 and C6-C7. On the left, there is mild neural foraminal narrowing at C6-C7. No levels of spinal canal stenosis are seen. Small bilateral mastoid effusions are noted inferiorly. The imaged sphenoid sinuses are clear. Bilateral carotid arterial calcifications are noted. Right pleural effusion extending to the lung apex with nonspecific apical increased interstitial markings. Mild pulmonary edema cannot be excluded. [employer] [facility] Juan Manuel Orr MD - 06/07/2022 EXAMINATION: CT CERVICAL SPINE WITHOUT CONTRAST, 06/07/2022: HISTORY: fall COMPARISON: CT cervical spine, 04/06/2022. TECHNIQUE: Nonenhanced CT imaging of the cervical spine was performed with sagittal and coronal reconstructions. Dose reduction techniques were achieved by using automated exposure control and/or adjustment of mA and/or kV according to patient size and/or use of iterative reconstruction technique. FINDINGS: No acute osseous or articular abnormality is seen. The cervical vertebral bodies are normal in height and alignment. There is fairly advanced degenerative disc disease at C5-C6 and C6-C7. Skull base alignment is anatomic. The articular facets are normally aligned. On the right, there is moderate neural foraminal narrowing at C5-C6 and C6-C7. On the left, there is mild neural foraminal narrowing at C6-C7. No levels of spinal canal stenosis are seen. Small bilateral mastoid effusions are noted inferiorly. The imaged sphenoid sinuses are clear. Bilateral carotid arterial calcifications are noted. Right pleural effusion extending to the lung apex with nonspecific apical increased interstitial markings. Mild pulmonary edema cannot be excluded. IMPRESSION: 1. No acute cervical spine findings. Chronic changes are described above. 2. Small bilateral mastoid effusions. 3. Right pleural effusion with nonspecific increased interstitial markings at the lung apices. Mild pulmonary edema cannot be excluded. Workstation ID: [id number] [facility] Radiology Study observation (narrative) [facility] CT Chest Abdomen Pelvis With out Contraston 06-07-2022 1. Suggested very subtle nondisplaced fracture involving the left posterior 12th rib. Correlation for focal tenderness recommended. No other potential acute traumatic change is seen in the chest, abdomen or pelvis, allowing for exam limitations due to the lack of contrast. A nonacute distal left clavicular fracture is noted. 2. No acute thoracic spine findings. 3. No acute lumbar spine findings. 4. Suspected anemia. 5. Coronary arterial calcifications. 6. Mild nonspecific mediastinal adenopathy. 7. Bilateral pleural effusions with adjacent posterior lung atelectasis, right greater than left. 8. 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 9. Nonobstructing 2 mm left renal calculus. 10. 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 11. Nonspecific inferior rectal wall thickening with surrounding presacral fluid and fat stranding. Clinical correlation recommended to exclude mild proctitis or potential mass. Workstation ID: [id number] [facility] EXAMINATION: CT CHEST ABDOMEN PELVIS WITHOUT CONTRAST, 06/07/2022 HISTORY: Fall. COMPARISON: Chest x-ray, 06/06/2022. TECHNIQUE: Nonenhanced CT imaging of the chest, abdomen and pelvis was performed with sagittal and coronal reconstructions. The source data was utilized for reconstructed images of the thoracic and lumbar spine in the axial, sagittal and coronal planes. Dose reduction techniques were achieved by using automated exposure control and/or adjustment of mA and/or kV according to patient size and/or use of iterative reconstruction technique. FINDINGS: CT CHEST: The exam is limited by the lack of IV contrast. No mediastinal injury is seen. The heart is top-normal in size. Low-density blood in the cardiac chambers is suspicious for anemia. Coronary arterial calcifications are most prominent in the LAD. There is no pericardial effusion. There are fairly dense aortic and proximal arch vessel calcifications without aneurysm. Thyroid gland is unremarkable. There is mild nonspecific mediastinal adenopathy measuring up to 1.8 x 1.4 cm in the subcarinal region on image 54. Layering bilateral pleural effusions are noted, moderate on the right and smaller on the left. There is adjacent posterior lung atelectasis. Mild increased interstitial markings are seen predominantly at the left lung base which may reflect mild pulmonary edema. An acute comminuted and displaced distal left clavicular fracture has some surrounding new bone formation and appears nonacute. There is a suggested very subtle acute nondisplaced fracture involving the left posterior 12th rib. No other potential acute osseous injury is seen in the chest. There is marked bilateral gynecomastia. CT ABDOMEN: The exam is limited by the lack of IV contrast. Solid organ lesions or acute abnormalities could be missed. The liver has a mildly nodular surface contour suspicious for cirrhosis, with a recanalized umbilical vein and splenomegaly suggesting portal venous hypertension. Mild fat stranding around the pancreatic head and uncinate could reflect mild acute pancreatitis. The gallbladder, adrenal glands and right kidney have a grossly unremarkable nonenhanced appearance. There is a 2 mm stone in the midpole of the left kidney on image 135. The left kidney is otherwise unremarkable. There are dense aortic and iliac calcifications without aneurysm. There is a 0.8 cm rounded fat density lesion in the distal 3rd portion of the duodenum favoring a duodenal lipoma over an ingested fatty bolus of food. The nonenhanced stomach and small bowel are otherwise unremarkable. CT PELVIS: No acute pelvic organ injury is seen. The pelvic small bowel loops are unremarkable. There is borderline urinary bladder wall thickening. The prostate is enlarged with moderate calcification. There is nonspecific rectal wall thickening with fluid and fat stranding in the presacral fat. There is a normal volume of colonic stool and gas. No acute pelvic osseous or articular abnormality is seen. CT THORACIC SPINE: No acute thoracic spine fracture or compression deformity is seen. The thoracic vertebral bodies are normal in height and alignment. No spinal canal stenosis or paraspinal hematoma is seen. CT LUMBAR SPINE: No acute lumbar spine fracture, compression deformity or spondylolisthesis is seen. 5 lumbar vertebral bodies are normal in height and alignment. Disc spaces are maintained. The articular facets are normally aligned. No spinal canal stenosis, neural foraminal narrowing or paraspinal hematoma is seen. The sacrum and sacroiliac joints appear intact. [facility] Juan Manuel Orr MD - 06/07/2022 EXAMINATION: CT CHEST ABDOMEN PELVIS WITHOUT CONTRAST, 06/07/2022 HISTORY: Fall. COMPARISON: Chest x-ray, 06/06/2022. TECHNIQUE: Nonenhanced CT imaging of the chest, abdomen and pelvis was performed with sagittal and coronal reconstructions. The source data was utilized for reconstructed images of the thoracic and lumbar spine in the axial, sagittal and coronal planes. Dose reduction techniques were achieved by using automated exposure control and/or adjustment of mA and/or kV according to patient size and/or use of iterative reconstruction technique. FINDINGS: CT CHEST: The exam is limited by the lack of IV contrast. No mediastinal injury is seen. The heart is top-normal in size. Low-density blood in the cardiac chambers is suspicious for anemia. Coronary arterial calcifications are most prominent in the LAD. There is no pericardial effusion. There are fairly dense aortic and proximal arch vessel calcifications without aneurysm. Thyroid gland is unremarkable. There is mild nonspecific mediastinal adenopathy measuring up to 1.8 x 1.4 cm in the subcarinal region on image 54. Layering bilateral pleural effusions are noted, moderate on the right and smaller on the left. There is adjacent posterior lung atelectasis. Mild increased interstitial markings are seen predominantly at the left lung base which may reflect mild pulmonary edema. An acute comminuted and displaced distal left clavicular fracture has some surrounding new bone formation and appears nonacute. There is a suggested very subtle acute nondisplaced fracture involving the left posterior 12th rib. No other potential acute osseous injury is seen in the chest. There is marked bilateral gynecomastia. CT ABDOMEN: The exam is limited by the lack of IV contrast. Solid organ lesions or acute abnormalities could be missed. The liver has a mildly nodular surface contour suspicious for cirrhosis, with a recanalized umbilical vein and splenomegaly suggesting portal venous hypertension. Mild fat stranding around the pancreatic head and uncinate could reflect mild acute pancreatitis. The gallbladder, adrenal glands and right kidney have a grossly unremarkable nonenhanced appearance. There is a 2 mm stone in the midpole of the left kidney on image 135. The left kidney is otherwise unremarkable. There are dense aortic and iliac calcifications without aneurysm. There is a 0.8 cm rounded fat density lesion in the distal 3rd portion of the duodenum favoring a duodenal lipoma over an ingested fatty bolus of food. The nonenhanced stomach and small bowel are otherwise unremarkable. CT PELVIS: No acute pelvic organ injury is seen. The pelvic small bowel loops are unremarkable. There is borderline urinary bladder wall thickening. The prostate is enlarged with moderate calcification. There is nonspecific rectal wall thickening with fluid and fat stranding in the presacral fat. There is a normal volume of colonic stool and gas. No acute pelvic osseous or articular abnormality is seen. CT THORACIC SPINE: No acute thoracic spine fracture or compression deformity is seen. The thoracic vertebral bodies are normal in height and alignment. No spinal canal stenosis or paraspinal hematoma is seen. CT LUMBAR SPINE: No acute lumbar spine fracture, compression deformity or spondylolisthesis is seen. 5 lumbar vertebral bodies are normal in height and alignment. Disc spaces are maintained. The articular facets are normally aligned. No spinal canal stenosis, neural foraminal narrowing or paraspinal hematoma is seen. The sacrum and sacroiliac joints appear intact. IMPRESSION: 1. Suggested very subtle nondisplaced fracture involving the left posterior 12th rib. Correlation for focal tenderness recommended. No other potential acute traumatic change is seen in the chest, abdomen or pelvis, allowing for exam limitations due to the lack of contrast. A nonacute distal left clavicular fracture is noted. 2. No acute thoracic spine findings. 3. No acute lumbar spine findings. 4. Suspected anemia. 5. Coronary arterial calcifications. 6. Mild nonspecific mediastinal adenopathy. 7. Bilateral pleural effusions with adjacent posterior lung atelectasis, right greater than left. 8. 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 9. Nonobstructing 2 mm left renal calculus. 10. 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 11. Nonspecific inferior rectal wall thickening with surrounding presacral fluid and fat stranding. Clinical correlation recommended to exclude mild proctitis or potential mass. Workstation ID: [id number] [facility] Radiology Study observation (narrative) [facility] CT Head Or Brain Without Con traston 06-07-2022 1. No calvarial fracture or acute intracranial process. 2. Fairly small bilateral mastoid effusions. 3. Right periorbital soft tissue swelling and suggested laceration. Workstation ID: [id number] [facility] EXAMINATION: CT BRAIN WITHOUT CONTRAST, 06/07/2022 : HISTORY: fall COMPARISON: CT head, 04/06/2022. TECHNIQUE: Nonenhanced CT imaging of the brain was performed from the skull base to the vertex. Dose reduction techniques were achieved by using automated exposure control and/or adjustment of mA and/or kV according to patient size and/or use of iterative reconstruction technique. FINDINGS: No intracranial hemorrhage, edema, mass effect or midline shift is seen. There is age-related brain atrophy with corresponding prominence of the ventricles and extra-axial CSF spaces. The brain parenchyma, ventricles and extra-axial CSF spaces are otherwise unremarkable for age. The calvarium and imaged facial bones appear intact. The paranasal sinuses are clear. Fairly small bilateral mastoid effusions are noted. There is right lateral periorbital soft tissue swelling with overlying bandaging material suggesting laceration. No soft tissue gas, loculated fluid, or foreign body is seen. [facility] Juan Manuel Orr MD - 06/07/2022 EXAMINATION: CT BRAIN WITHOUT CONTRAST, 06/07/2022 : HISTORY: fall COMPARISON: CT head, 04/06/2022. TECHNIQUE: Nonenhanced CT imaging of the brain was performed from the skull base to the vertex. Dose reduction techniques were achieved by using automated exposure control and/or adjustment of mA and/or kV according to patient size and/or use of iterative reconstruction technique. FINDINGS: No intracranial hemorrhage, edema, mass effect or midline shift is seen. There is age-related brain atrophy with corresponding prominence of the ventricles and extra-axial CSF spaces. The brain parenchyma, ventricles and extra-axial CSF spaces are otherwise unremarkable for age. The calvarium and imaged facial bones appear intact. The paranasal sinuses are clear. Fairly small bilateral mastoid effusions are noted. There is right lateral periorbital soft tissue swelling with overlying bandaging material suggesting laceration. No soft tissue gas, loculated fluid, or foreign body is seen. IMPRESSION: 1. No calvarial fracture or acute intracranial process. 2. Fairly small bilateral mastoid effusions. 3. Right periorbital soft tissue swelling and suggested laceration. Workstation ID: [id number] [facility] Radiology Study observation (narrative) [facility] CT Head Or Brain Without Con trastOrdered By: Juan Manuel Orr on 06-07-2022 [facility] Work Phone: EKGon 06-07-2022 [facility] Lactate [Moles/Vol]on 2021 Interpretation and review of laboratory results Abnormal [facility] Lactic Acid, Plasmaon 2021 Lactate [Moles/Vol] 2.1 mmol/L High 0.6 - 2 mmol/L [facility] Magnesium Levelon 06-07-2022 Magnesium [Mass/Vol] 1.7 mg/dL 1.6 - 2 .4 mg/dL [facility] Magnesium [Mass/Vol]on 06-07 Interpretation and review of laboratory results Normal [facility] Urine Drug Screenon 06-07-20 22 Amphetamines Ql (U) Not detected None Detected [facility] Comment on above: Urine Amphetamine Cu toff: < 1000 ng/mL = None Detected Barbiturates Screen Ql (U) Not detected None Detected [facility] Comment on above: Urine Barbiturates C utoff: < 200 ng/mL = None Detected Benzodiazepines Ql (U) Not detected None Detected [facility] Comment on above: Urine Benzodiazepine Cutoff: < 200 ng/mL = None Detected Buprenorphine Ql (U) Not detected None Detected [facility] Comment on above: Urine Buprenorphine Cutoff: < 5 ng/mL = None Detected Cannabinoids Screen Ql (U) Not detected None Detected [facility] Comment on above: Urine Cannabinoids C utoff: < 50 ng/mL = None Detected Cocaine Ql (U) Not detected None Detected [facility] Comment on above: Urine Cocaine Cutoff : < 300 ng/mL = None Detected fentaNYL+Norfentanyl Screen Ql (U) Not detected None Detected [facility] Comment on above: Urine Fentanyl Cutof f: < 1 ng/mL = None Detected Interpretation and review of laboratory results Normal [facility] [facility] Screen Ql (U) Not detected None Detected [facility] Comment on above: Urine Methadone Cuto ff: < 300 ng/mL = None Detected Opiates Screen Ql (U) Not detected None Detected [facility] Comment on above: Urine Opiates Cutoff : < 300 ng/mL = None Detected oxyCODONE Ql (U) Not detected None Detected [facility] Comment on above: Urine Oxycodone Cuto ff: < 100 ng/mL = None Detected Screen results shoul d be used for treatment purposes only. [facility] XR Elbow Right 3+ Views (Sta ndard)on 06-07-2022 No acute findings. Workstation ID: [id number] [place] EXAMINATION: XR ELBOW RIGHT 3+ VIEWS (STANDARD) HISTORY: fall Injury/Trauma or Illness?:Injury/Trauma How long have you had these symptoms (acute/chronic)?:Acute Reason for exam?:fall, right elbow injury History of cancer?:u Surgeries, chemotherapy, or radiation?:u L03.119 Cellulitis of lower extremity, unspecified laterality COMPARISON: None. TECHNIQUE: 3 radiographs of the right elbow were obtained. FINDINGS: Osseous structures are normal in alignment without fracture or dislocation. Normal mineralization throughout. There are mild degenerative changes. No significant soft tissue swelling. GE RIS Jasen Mendes, DO - 06/07/2022 EXAMINATION: XR ELBOW RIGHT 3+ VIEWS (STANDARD) HISTORY: fall Injury/Trauma or Illness?:Injury/Trauma How long have you had these symptoms (acute/chronic)?:Acute Reason for exam?:fall, right elbow injury History of cancer?:u Surgeries, chemotherapy, or radiation?:u L03.119 Cellulitis of lower extremity, unspecified laterality COMPARISON: None. TECHNIQUE: 3 radiographs of the right elbow were obtained. FINDINGS: Osseous structures are normal in alignment without fracture or dislocation. Normal mineralization throughout. There are mild degenerative changes. No significant soft tissue swelling. IMPRESSION: No acute findings. Workstation ID: [id number] [facility] Radiology Study observation (narrative) [facility] XR Elbow Right 3+ Views (Mai romarionatasha)Ordered By: Jasen Mendes on 06-07-2022 [facility] Work Phone: XR Hand Right 3+ Views (Momo french)on 06-07-2022 1. No acute findings. 2. Moderate osteoarthritis. Workstation ID: [id number] Car[place]ez EXAMINATION: XR HAND RIGHT 3+ VIEWS (STANDARD) HISTORY: fall Injury/Trauma or Illness?:Injury/Trauma How long have you had these symptoms (acute/chronic)?:Acute Reason for exam?:fall, right elbow injury History of cancer?:u Surgeries, chemotherapy, or radiation?:u L03.119 Cellulitis of lower extremity, unspecified laterality COMPARISON: None. TECHNIQUE: 3 radiographs of the right hand were obtained. FINDINGS: Moderate to severe narrowing of the 1st CMC joint with subchondral sclerosis. Mild narrowing of the interphalangeal joints with marginal osteophyte formations. Osseous structures are otherwise normal in alignment without fracture or dislocation. Normal mineralization throughout. No significant soft tissue swelling. GE RIS Jasen Mendes, - 06/07/2022 EXAMINATION: XR HAND RIGHT 3+ VIEWS (STANDARD) HISTORY: fall Injury/Trauma or Illness?:Injury/Trauma How long have you had these symptoms (acute/chronic)?:Acute Reason for exam?:fall, right elbow injury History of cancer?:u Surgeries, chemotherapy, or radiation?:u L03.119 Cellulitis of lower extremity, unspecified laterality COMPARISON: None. TECHNIQUE: 3 radiographs of the right hand were obtained. FINDINGS: Moderate to severe narrowing of the 1st CMC joint with subchondral sclerosis. Mild narrowing of the interphalangeal joints with marginal osteophyte formations. Osseous structures are otherwise normal in alignment without fracture or dislocation. Normal mineralization throughout. No significant soft tissue swelling. IMPRESSION: 1. No acute findings. 2. Moderate osteoarthritis. Workstation ID: [id number] [facility] Radiology Study observation (narrative) [facility] 2 Ethanol [Mass/Vol] 150.00 mg/dL High NINF - 10.00 mg/dL [facility] Basic metabolic 2000 panelon 06-06-2022 Anion gap [Moles/Vol] 13 mmol/L 10 - 2 0 mmol/L [facility] Calcium [Mass/Vol] 8.6 mg/dL 8.4 - 10. 2 mg/dL [facility] Chloride [Moles/Vol] 99 mmol/L 98 - 10 8 mmol/L [facility] Creatinine [Mass/Vol] 0.70 mg/dL Low 0.80 - 1.30 mg/dL [facility] GFR/1.73 sq M.predicted CKD-EPI (S/P/Bld) [Vol rate/Area] 93 - PINF [facility] Comment on above: Estimated GFR was ca lculated using the 2020 CKD-EPI creatinine equation. Glucose [Mass/Vol] 92 mg/dL 65 - 99 mg/dL [facility] HCO3 [Moles/Vol] 22 mmol/L 21 - 32 mmol/L [facility] Interpretation and review of laboratory results Abnormal [facility] Potassium [Moles/Vol] 3.2 mmol/L Low 3.5 - 5.1 mmol/L [facility] Sodium [Moles/Vol] 131 mmol/L Low 135 - 145 mmol/L [facility] Urea nitrogen [Mass/Vol] 9 mg/dL 8 - 25 mg/dL [facility] Urea nitrogen/Creatinine [Mass ratio] 12.9 mg/mg 10 - 20 [facility] has implemented the eGFR calculation approach that does not have a coefficient for race that conforms to the NKF-ASN Task Force Recommendations. [facility] CBC Auto Differentialon 11-0 5-2022 Basophils (Bld) [#/Vol] 0.03 10*3/uL [facility] Basophils/100 WBC (Bld) 0.8 % [facility] Eosinophils (Bld) [#/Vol] 0.04 10*3/uL [facility] Eosinophils/100 WBC (Bld) 1.0 % [facility] Erythrocyte distribution width (RBC) [Entitic vol] 14.8 % 11.6 - 14.8 % [facility] Hematocrit (Bld) [Volume fraction] 27.1 % Low 41 - 53 % [facility] Hemoglobin (Bld) [Mass/Vol] 8.5 g/dL Low 13.5 - 17.5 g/dL [facility] Immature granulocytes (Bld) [#/Vol] 0.04 10*3/uL [facility] Immature granulocytes/100 WBC (Bld) 1.00 % [facility] Comment on above: The IG parameter is the percentage of metamyelocytes, myelocytes and promyelocytes. An immature granulocyte count (IG) of 1% or more suggests the possibility of infection, an IG count of 3% is very likely related to an infection. Interpretation and review of laboratory results Abnormal [facility] Lymphocytes (Bld) [#/Vol] 0.46 10*3/uL Low [facility] Lymphocytes/100 WBC (Bld) 11.6 % [facility] MCH (RBC) [Entitic mass] 27.5 pg 26 - 34 pg [facility] MCHC (RBC) [Mass/Vol] 31.4 g/dL 31 - 3 7 g/dL [facility] MCV (RBC) [Entitic vol] 87.7 fL 80 - 100 fL [facility] Monocytes (Bld) [#/Vol] 0.32 10*3/uL [facility] Monocytes/100 WBC (Bld) 8.1 % [facility] Neutrophils (Bld) [#/Vol] 3.08 10*3/uL [facility] Neutrophils/100 WBC (Bld) 77.5 % [facility] Nucleated RBC (Bld) [#/Vol] 0.00 10*3/uL [facility] Nucleated RBC/100 WBC (Bld) [Ratio] 0.0 % [facility] Platelet mean volume (Bld) [Entitic vol] 8.9 fL Low 9.4 - 12.4 fL [facility] Platelets (Bld) [#/Vol] 160 10*3/uL [facility] RBC (Bld) [#/Vol] 3.09 10*6/uL Low [facility] ealth WBC (Bld) [#/Vol] 3.97 10*3/uL Low [facility] Ethanol [Mass/Vol]on 022 Interpretation and review of laboratory results Abnormal [facility] Hepatic function 2000 panelo n 06-06-2022 Albumin [Mass/Vol] 3.4 g/dL 3.2 - 5.2 g/dL [facility] ALP [Catalytic activity/Vol] 84 U/L 40 - 150 U/L [facility] ALT [Catalytic activity/Vol] 20 U/L 14 - 65 U/L [facility] AST [Catalytic activity/Vol] 38 U/L 0 - 45 U/L [facility] Bilirubin [Mass/Vol] 0.7 mg/dL 0 - 1.3 mg/dL [facility] Bilirubin.conjugated [Mass/Vol] 0.4 mg/dL 0 - 0.4 mg/dL [facility] Interpretation and review of laboratory results Normal [facility] Protein [Mass/Vol] 7.1 g/dL 6 - 8 g/dL [facility] INR Coag (PPP) [Relative deisy e]on 06-06-2022 Interpretation and review of laboratory results Abnormal [facility] PT Coag (PPP) [Time] 15.0 s High [facility] During the induction phase of oral anticoagulation, the INR may not reflect the anticoagulation status of the patient. Therapeutic ranges for INR's are: Most clinical situations: INR 2.0-3.0 Mechanical Prosthetic Valve: INR 2.5-3.5 Critical: INR >5.0 [facility] Lactate [Moles/Vol]on 2021 Interpretation and review of laboratory results Abnormal [facility] Lactic Acid, Plasmaon 2021 Lactate [Moles/Vol] 2.5 mmol/L High 0.6 - 2 mmol/L [facility] No Panel Informationon 06-06 [facility] Extra Tube Hold for add-ons. [facility] Comment on above: Auto resulted. [facility] Extra Tube Hold for add-ons. [facility] Comment on above: Auto resulted. [facility] PT/INRon 06-06-2022 INR Coag (PPP) [Relative time] 1.2 {INR} High 0.8 - 1.1 [facility] UrinalysisOrdered By: Shaunna Mcdonnell on 06-06-2022 Bacteria Auto Ql (U) None Seen None Se en /hpf [facility] Bilirubin Ql (U) Negative Negative [facility] th Clarity Refractometry automated (U) Clear Clear [facility] Color (U) Yellow Colorless, Yellow [facility] Epithelial cells.squamous Auto (Urine sed) [#/Area] [facility] Glucose Auto test strip (U) [Mass/Vol] Negative Negative mg/dL [facility] Hemoglobin Auto test strip Ql (U) Negative Negative [facility] Interpretation and review of laboratory results Normal [facility] Ketones (U) [Mass/Vol] Negative Negat sommer mg/dL [facility] Leukocyte esterase Auto test strip Ql (U) Negative Negative [facility] Nitrite Auto test strip Ql (U) Negative Negative [facility] pH (U) 5.5 [pH] 5 - 7 [facility] Protein (U) [Mass/Vol] Negative Negat sommer mg/dL [facility] Specific gravity (U) [Rel density] 1.008 1.005 - 1.025 [facility] Urobilinogen (U) [Mass/Vol] mg/dL NINF - 2.0 mg/dL [facility] WBC Auto (Urine sed) [#/Area] 1 [facility] Microscopic examinat ion is performed on all urinalysis samples and only positive findings are reported. The test for blood on the chemical analytic portion of urinalysis may also be positive due to hemoglobinuria and myoglobinuria and if red blood cells are present they are quantified by microscopic examination. [facility] XR Chest 1 Viewon 06-06-2022 1. Mild cardiomegaly. 2. Chronic changes and findings of slight CHF, please correlate. Workstation ID: [id number] Carweez EXAMINATION: XR CHEST PA/AP 06/06/2022 11:13 pm HISTORY: ORDERING SYSTEM PROVIDED HISTORY: fall, TECHNOLOGIST PROVIDED HISTORY: Injury/Trauma Reason for exam: fall Cancer History: u Surgery, RadiationHistory: u Encounter Type: Initial Mechanism of injury: fall ORDERING SYSTEM PROVIDED DIAGNOSIS CODES: COMPARISON: Portable chest from 04/06/2022. FINDINGS: Trachea is midline. Mediastinum is not widened. Heart size is mildly prominent. There is mild prominence of the central pulmonary vasculature with mild haziness and prominence interstitial markings. There may be slight fluid in the costophrenic recesses. No pneumothorax is noted. BENNETT DalalWalter, DO - 06/06/2022 EXAMINATION: XR CHEST PA/AP 06/06/2022 11:13 pm HISTORY: ORDERING SYSTEM PROVIDED HISTORY: fall, TECHNOLOGIST PROVIDED HISTORY: Injury/Trauma Reason for exam: fall Cancer History: u Surgery, RadiationHistory: u Encounter Type: Initial Mechanism of injury: fall ORDERING SYSTEM PROVIDED DIAGNOSIS CODES: COMPARISON: Portable chest from 04/06/2022. FINDINGS: Trachea is midline. Mediastinum is not widened. Heart size is mildly prominent. There is mild prominence of the central pulmonary vasculature with mild haziness and prominence interstitial markings. There may be slight fluid in the costophrenic recesses. No pneumothorax is noted. IMPRESSION: 1. Mild cardiomegaly. 2. Chronic changes and findings of slight CHF, please correlate. Workstation ID: [id number] [facility] Radiology Study observation (narrative) XR Chest 1 ViewOrdered By: Marley Dalal on 06-06-2022 [facility] Work Phone: [facility]- Mobile Cardiac Telemetr yon 05-25-2022 VAL REPORT: 04/17/20 22 TO 2022 INDICATIONS: ATRIAL FIBRILLATION 30-day event monitor Results General Max heart rate: 132 bpm Min heart rate: 45 bpm at 1:20 AM Average heart rate: 68 bpm Conduction System/Pauses Reports of multiple pauses however in the setting of atrial fibrillation this is just variable AV node conduction, longest 4.3 seconds occurring at 12:43 AM Atrial I have personally reviewed the strips, patient is in atrial fibrillation 100% of the time Ventricular Rare ventricular ectopy, total burden less than 1% 1 7 beat run of ventricular tachycardia approximately 150 bpm Patient Events No patient reported events Summary 100% atrial fibrillation, average rate 68 bpm 1 7 beat run of ventricular tachycardia, asymptomatic [employer] CV [facility] Cardiac Telemetr yOrdered By: Jane oCsby on 05-25-2022 [facility] Work Phone: [facility]-CARDIAC EVENT MONITORon 05-25-2022 [facility]-CARDIAC EVENT MONITOR This is a summary report. The complete report is available in the patient's medical record. If you cannot access the medical record, please contact the sending organization for a detailed fax or copy. ?? VAL REPORT: 04/17/2022 TO 2022 ?? INDICATIONS: ATRIAL FIBRILLATION 30-day event monitor Results General Max heart rate: 132 bpm Min heart rate: 45 bpm at 1:20 AM Average heart rate: 68 bpm Conduction System/Pauses Reports of multiple pauses however in the setting of atrial fibrillation this is just variable AV node conduction, longest 4.3 seconds occurring at 12:43 AM Atrial I have personally reviewed the strips, patient is in atrial fibrillation 100% of the time Ventricular Rare ventricular ectopy, total burden less than 1% 1 7 beat run of ventricular tachycardia approximately 150 bpm Patient Events No patient reported events Summary 100% atrial fibrillation, average rate 68 bpm 1 7 beat run of ventricular tachycardia, asymptomatic Normal [facility] Ambulatory [facility] Cardiac Telemetr yon 05-22-2022 Radiology Study observation (narrative) [facility] Basic metabolic 2000 panelon 04-15-2022 Anion gap [Moles/Vol] 11 mmol/L 10 - 2 0 mmol/L [facility] Calcium [Mass/Vol] 8.6 mg/dL 8.4 - 10. 2 mg/dL [facility] Chloride [Moles/Vol] 100 mmol/L 98 - 10 8 mmol/L [facility] Creatinine [Mass/Vol] 0.62 mg/dL Low 0.80 - 1.30 mg/dL [facility] GFR/1.73 sq M.predicted CKD-EPI (S/P/Bld) [Vol rate/Area] 97 - PINF [facility] Comment on above: Estimated GFR was ca lculated using the 2020 CKD-EPI creatinine equation. Glucose [Mass/Vol] 105 mg/dL High 65 - 99 mg/dL [facility] HCO3 [Moles/Vol] 23 mmol/L 21 - 32 mmol/L [facility] Interpretation and review of laboratory results Abnormal [facility] Potassium [Moles/Vol] 3.9 mmol/L 3.5 - 5.1 mmol/L [facility] Sodium [Moles/Vol] 130 mmol/L Low 135 - 145 mmol/L [facility] Urea nitrogen [Mass/Vol] 12 mg/dL 8 - 25 mg/dL [facility] Urea nitrogen/Creatinine [Mass ratio] 19.4 mg/mg 10 - 20 [facility] has implemented the eGFR calculation approach that does not have a coefficient for race that conforms to the NKF-ASN Task Force Recommendations. [facility] CBC panel Auto (Bld)on 04-15 Erythrocyte distribution width (RBC) [Entitic vol] 13.1 % 11.6 - 14.8 % [facility] Hematocrit (Bld) [Volume fraction] 25.3 % Low 41 - 53 % [facility] Hemoglobin (Bld) [Mass/Vol] 8.6 g/dL Low 13.5 - 17.5 g/dL [facility] Interpretation and review of laboratory results Abnormal [facility] MCH (RBC) [Entitic mass] 31.2 pg 26 - 34 pg [facility] MCHC (RBC) [Mass/Vol] 34.0 g/dL 31 - 3 7 g/dL [facility] MCV (RBC) [Entitic vol] 91.7 fL 80 - 100 fL [facility] Nucleated RBC (Bld) [#/Vol] 0.00 10*3/uL [facility] Nucleated RBC/100 WBC (Bld) [Ratio] 0.0 % [facility] Platelet mean volume (Bld) [Entitic vol] 8.8 fL Low 9.4 - 12.4 fL [facility] Platelets (Bld) [#/Vol] 147 10*3/uL Low [facility] RBC (Bld) [#/Vol] 2.76 10*6/uL Low [facility] WBC (Bld) [#/Vol] 2.31 10*3/uL Low [facility] Magnesium Levelon 04-15-2022 Magnesium [Mass/Vol] 2.1 mg/dL 1.6 - 2 .4 mg/dL [facility] Magnesium [Mass/Vol]on 04-15 Interpretation and review of laboratory results Normal [facility] Basic metabolic 2000 panelon 04-14-2022 Anion gap [Moles/Vol] 13 mmol/L 10 - 2 0 mmol/L [facility] Calcium [Mass/Vol] 8.6 mg/dL 8.4 - 10. 2 mg/dL [facility] Chloride [Moles/Vol] 97 mmol/L Low 98 - 10 8 mmol/L [facility] Creatinine [Mass/Vol] 0.65 mg/dL Low 0.80 - 1.30 mg/dL [facility] GFR/1.73 sq M.predicted CKD-EPI (S/P/Bld) [Vol rate/Area] 96 - PINF [facility] Comment on above: Estimated GFR was ca lculated using the 2020 CKD-EPI creatinine equation. Glucose [Mass/Vol] 103 mg/dL High 65 - 99 mg/dL [facility] HCO3 [Moles/Vol] 23 mmol/L 21 - 32 mmol/L [facility] Interpretation and review of laboratory results Abnormal [facility] Potassium [Moles/Vol] 3.8 mmol/L 3.5 - 5.1 mmol/L [facility] Sodium [Moles/Vol] 129 mmol/L Low 135 - 145 mmol/L [facility] Urea nitrogen [Mass/Vol] 10 mg/dL 8 - 25 mg/dL [facility] Urea nitrogen/Creatinine [Mass ratio] 15.4 mg/mg 10 - 20 [facility] has implemented the eGFR calculation approach that does not have a coefficient for race that conforms to the NKF-ASN Task Force Recommendations. [facility] CBC panel Auto (Bld)on 04-14 Erythrocyte distribution width (RBC) [Entitic vol] 13.0 % 11.6 - 14.8 % [facility] Hematocrit (Bld) [Volume fraction] 24.3 % Low 41 - 53 % [facility] Hemoglobin (Bld) [Mass/Vol] 8.2 g/dL Low 13.5 - 17.5 g/dL [facility] Interpretation and review of laboratory results Abnormal [facility] MCH (RBC) [Entitic mass] 30.9 pg 26 - 34 pg [facility] MCHC (RBC) [Mass/Vol] 33.7 g/dL 31 - 3 7 g/dL [facility] MCV (RBC) [Entitic vol] 91.7 fL 80 - 100 fL [facility] Nucleated RBC (Bld) [#/Vol] 0.00 10*3/uL [facility] Nucleated RBC/100 WBC (Bld) [Ratio] 0.0 % [facility] Platelet mean volume (Bld) [Entitic vol] 9.2 fL Low 9.4 - 12.4 fL [facility] Platelets (Bld) [#/Vol] 125 10*3/uL Low [facility] RBC (Bld) [#/Vol] 2.65 10*6/uL Low [facility] WBC (Bld) [#/Vol] 2.08 10*3/uL Low [facility] Magnesium Levelon 04-14-2022 Magnesium [Mass/Vol] 2.0 mg/dL 1.6 - 2 .4 mg/dL [facility] Magnesium [Mass/Vol]on 04-14 Interpretation and review of laboratory results Normal [facility] Osmolality (U) [Osmolality]o n 04-14-2022 No established reference range. [facility] Osmolality, Urineon 04-14-20 Osmolality (U) [Osmolality] 463 mosm/kg mOsm/kg [facility] Sodium (U) [Moles/Vol]on No established reference range. [facility] Sodium, Urine, Randomon 04-02 Sodium (U) [Moles/Vol] 141 mmol/L [facility] Basic metabolic 2000 panelon 04-13-2022 Anion gap [Moles/Vol] 14 mmol/L 10 - 2 0 mmol/L [facility] Calcium [Mass/Vol] 8.4 mg/dL 8.4 - 10. 2 mg/dL [facility] Chloride [Moles/Vol] 98 mmol/L 98 - 10 8 mmol/L [facility] Creatinine [Mass/Vol] 0.62 mg/dL Low 0.80 - 1.30 mg/dL [facility] GFR/1.73 sq M.predicted CKD-EPI (S/P/Bld) [Vol rate/Area] 97 - PINF [facility] Comment on above: Estimated GFR was ca lculated using the 2020 CKD-EPI creatinine equation. Glucose [Mass/Vol] 105 mg/dL High 65 - 99 mg/dL [facility] HCO3 [Moles/Vol] 22 mmol/L 21 - 32 mmol/L [facility] Interpretation and review of laboratory results Abnormal [facility] Potassium [Moles/Vol] 4.3 mmol/L 3.5 - 5.1 mmol/L [facility] Sodium [Moles/Vol] 130 mmol/L Low 135 - 145 mmol/L [facility] Urea nitrogen [Mass/Vol] 9 mg/dL 8 - 25 mg/dL [facility] Urea nitrogen/Creatinine [Mass ratio] 14.5 mg/mg 10 - 20 [facility] has implemented the eGFR calculation approach that does not have a coefficient for race that conforms to the NKF-ASN Task Force Recommendations. [facility] CBC panel Auto (Bld)on 04-13 Erythrocyte distribution width (RBC) [Entitic vol] 13.1 % 11.6 - 14.8 % [facility] Hematocrit (Bld) [Volume fraction] 24.5 % Low 41 - 53 % [facility] Hemoglobin (Bld) [Mass/Vol] 8.2 g/dL Low 13.5 - 17.5 g/dL [facility] Interpretation and review of laboratory results Abnormal [facility] MCH (RBC) [Entitic mass] 31.1 pg 26 - 34 pg [facility] MCHC (RBC) [Mass/Vol] 33.5 g/dL 31 - 3 7 g/dL [facility] MCV (RBC) [Entitic vol] 92.8 fL 80 - 100 fL [facility] Nucleated RBC (Bld) [#/Vol] 0.00 10*3/uL [facility] Nucleated RBC/100 WBC (Bld) [Ratio] 0.0 % [facility] Platelet mean volume (Bld) [Entitic vol] 8.5 fL Low 9.4 - 12.4 fL [facility] Platelets (Bld) [#/Vol] 110 10*3/uL Low [facility] RBC (Bld) [#/Vol] 2.64 10*6/uL Low [facility] WBC (Bld) [#/Vol] 2.02 10*3/uL Low [facility] eah [facility] ECG 12 Leadon 04-13-2022 Atrial Rate 65 BPM [facility] Q-T Interval 414 ms [facility] QRS Duration 118 ms [facility] QTC Calculation (Bezet) 399 ms [facility] R [facility]ady 54 degrees [facility] T Grady 41 degrees [facility] Ventricular Rate [address] [facility] Atrial fibrillation with slow ventricular response Incomplete right bundle branch block Abnormal ECG Confirmed by Barry Nichols MD ([id number]) on 04/13/2022 12:07:42 PM MUSE [facility] Magnesium Levelon 04-13-2022 Magnesium [Mass/Vol] 2.0 mg/dL 1.6 - 2 .4 mg/dL [facility] Magnesium [Mass/Vol]on 04-13 Interpretation and review of laboratory results Normal [facility] Basic metabolic 2000 panelon 04-12-2022 Anion gap [Moles/Vol] 11 mmol/L 10 - 2 0 mmol/L [facility] Calcium [Mass/Vol] 8.9 mg/dL 8.4 - 10. 2 mg/dL [facility] Chloride [Moles/Vol] 101 mmol/L 98 - 10 8 mmol/L [facility] Creatinine [Mass/Vol] 0.71 mg/dL Low 0.80 - 1.30 mg/dL [facility] GFR/1.73 sq M.predicted CKD-EPI (S/P/Bld) [Vol rate/Area] 93 - PINF [facility] Comment on above: Estimated GFR was ca lculated using the 2020 CKD-EPI creatinine equation. Glucose [Mass/Vol] 106 mg/dL High 65 - 99 mg/dL [facility] HCO3 [Moles/Vol] 24 mmol/L 21 - 32 mmol/L [facility] Potassium [Moles/Vol] 4.4 mmol/L 3.5 - 5.1 mmol/L [facility] Urea nitrogen [Mass/Vol] 10 mg/dL 8 - 25 mg/dL [facility] Urea nitrogen/Creatinine [Mass ratio] 14.1 mg/mg 10 - 20 [facility] has implemented the eGFR calculation approach that does not have a coefficient for race that conforms to the NKF-ASN Task Force Recommendations. [facility] CBC panel Auto (Bld)on 04-12 Erythrocyte distribution width (RBC) [Entitic vol] 13.2 % 11.6 - 14.8 % [facility] Hematocrit (Bld) [Volume fraction] 25.5 % Low 41 - 53 % [facility] Hemoglobin (Bld) [Mass/Vol] 8.6 g/dL Low 13.5 - 17.5 g/dL [facility] Interpretation and review of laboratory results Abnormal [facility] MCH (RBC) [Entitic mass] 31.2 pg 26 - 34 pg [facility] MCHC (RBC) [Mass/Vol] 33.7 g/dL 31 - 3 7 g/dL [facility] MCV (RBC) [Entitic vol] 92.4 fL 80 - 100 fL [facility] Nucleated RBC (Bld) [#/Vol] 0.00 10*3/uL [facility] Nucleated RBC/100 WBC (Bld) [Ratio] 0.0 % [facility] Platelet mean volume (Bld) [Entitic vol] 9.1 fL Low 9.4 - 12.4 fL [facility] Platelets (Bld) [#/Vol] 112 10*3/uL Low [facility] RBC (Bld) [#/Vol] 2.76 10*6/uL Low [facility] WBC (Bld) [#/Vol] 2.15 10*3/uL Low [facility] With Contraston 04-12-2022 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 Previously described 1 cm lesion in the left hepatic lobe could not be visualized in this study. This could be related to phase of contrast. Given the cirrhotic morphology, recommend correlation with nonemergent CT/MRI using liver mass protocol to document a baseline. Subcentimeter hypodense lesions in kidneys are too small to further characterize. No hydronephrosis/nephroli thiasis. Trace ascites. Mild gaseous distention of the transverse colon is suggestive of mild ileus. The appendix is normal in caliber. Moderate amount of stool burden. Small right, trace left-sided pleural effusion. Subtle tree-in-bud opacities in the bilateral lower lobes are likely related to infectious/inflammatory process. Moderate gynecomastia. Cardiomegaly. Smooth interlobular septal thickening, pleural effusion. In the appropriate clinical setting, this may represent mild pulmonary edema pattern. Coronary artery calcifications. Shotty mediastinal and hilar lymph nodes. Imaging findings are suggestive of reactive changes versus lymphatic congestion. Small hiatal hernia with findings suggestive of reflux esophagitis. [email or web address] Workstation ID: [id number] [employer] RIS EXAMINATION: CT CHEST ABDOMEN PELVIS WITH CONTRAST HISTORY: ORDERING SYSTEM PROVIDED HISTORY: Liver lesion, hyponatremia, TECHNOLOGIST PROVIDED HISTORY: Illness/Other Reason for exam: Liver lesion, hyponatremia Encounter Type: Initial Additional signs and symptoms: ORDERING SYSTEM PROVIDED DIAGNOSIS CODES: I48.91 Atrial fibrillation with slow ventricular response (HCC) E87.1 Hyponatremia D61.818 Pancytopenia (HCC) S09.90XA Closed head injury, initial encounter T14.8XXA Multiple skin tears COMPARISON: Abdominal ultrasound on 04/08/2022. TECHNIQUE: CT examination of the chest, abdomen, and pelvis following the administration of intravenous contrast. Coronal and sagittal reformations were performed. Dose reduction techniques were achieved by using automated exposure control and/or adjustment of mA and/or kV according to patient size and/or use of iterative reconstruction technique. CONTRAST: IOPAMIDOL 76 % ORAL - , IOPAMIDOL 76 % INTRAVENOUS SOLUTION - 75 mL, FINDINGS: There is undulation of the liver contour, suggestive of cirrhotic morphology. There is also recanalization of the umbilical vein. Previously described 1 cm hypodense lesion in the posterior and lateral aspect of the left hepatic lobe could not be visualized in this study. This could be related to phase of contrast. Given the cirrhotic morphology, recommend correlation with nonemergent CT/MRI using liver mass protocol to document a baseline. There is a tiny low-density lesion in the medial segment of the left hepatic lobe, too small to further characterize. There is subtle hyperdensity along the gallbladder wall. Since the patient had no gallstone of the abdominal ultrasound performed yesterday, this is probably related to volume averaging. There is a shotty gastrohepatic ligament lymph node measuring 9 x 13 mm. This is likely related to underlying cirrhotic morphology. There are also a few prominent periportal lymph nodes. The spleen is enlarged measuring 15.3 cm in AP dimension. The stomach is underdistended. The duodenum appears unremarkable. The pancreas demonstrates normal parenchymal enhancement. The adrenal glands appear unremarkable. There is a subcentimeter hypodense lesion in the posterior aspect of the left kidney, too small to further characterize. Additional tiny low-density lesions are too small to further characterize. Punctate right intraparenchymal calcification. The kidneys are otherwise enhancing symmetrically without any hydronephrosis. There is no nephrolithiasis. No bulky retroperitoneal lymph nodes. Severe calcified plaque is seen in the abdominal aorta and aortoiliac branches. There are a few subcentimeter pelvic sidewall lymph nodes, none of which meet the criteria for enlargement. The shared services representative lymph node along the left pelvic sidewall measures 9 x 9 mm. The bladder appears unremarkable. The prostate is mildly enlarged. The seminal vesicles are fluid-filled. There is mild bilateral perinephric stranding, likely related to chronic medical renal disease. Trace ascites. There are gaseous distention of transverse colon. Oral contrast is seen in the small bowel loops of the left upper quadrant. The small and large bowel are otherwise normal in caliber. The appendix is normal in caliber. Moderate amount of stool burden. There is no intraperitoneal free air. No gross abnormalities of the abdominal wall. Bone windows demonstrate no suspicious osseous lesion. There are multilevel mild spondylotic changes of the lumbar spine. The bones are osteopenic. The central airways are patent. There is a small right, trace left-sided pleural effusion. There is patchy consolidative opacities in the bilateral lower lobes. In addition to that, there is subtle ground-glass opacities and tree-in-bud opacities in the bilateral lower lobes. Imaging findings are suggestive of infectious/inflammatory process. No suspicious pulmonary nodule is evident. There is mild biapical pleuroparenchymal scarring. No pneumothorax. There is also smooth interlobular septal thickening in the bilateral lower lobes. Debris in mid and distal thoracic esophagus is suggestive of reflux esophagitis. The visualized portion of the thyroid gland appears unremarkable. There is no axillary lymphadenopathy. Moderate bilateral gynecomastia. The ascending thoracic aorta is normal in caliber. There is moderate diffuse calcified plaque in the aortic arch. The main pulmonary artery is within normal limits. The heart size is enlarged. No pericardial effusion. Calcified plaque is seen along the LAD. There are multiple shotty mediastinal and hilar lymph nodes. The shared services representative right hilar lymph node measures 14 x 14 mm. The index subcarinal lymph node measures 18 x 15 mm. The left infrahilar lymph node measure 9 x 10 mm. Small hiatal hernia. Carweez FrandySylwia kenny M D - 04/12/2022 EXAMINATION: CT CHEST ABDOMEN PELVIS WITH CONTRAST HISTORY: ORDERING SYSTEM PROVIDED HISTORY: Liver lesion, hyponatremia, TECHNOLOGIST PROVIDED HISTORY: Illness/Other Reason for exam: Liver lesion, hyponatremia Encounter Type: Initial Additional signs and symptoms: ORDERING SYSTEM PROVIDED DIAGNOSIS CODES: I48.91 Atrial fibrillation with slow ventricular response (HCC) E87.1 Hyponatremia D61.818 Pancytopenia (HCC) S09.90XA Closed head injury, initial encounter T14.8XXA Multiple skin tears COMPARISON: Abdominal ultrasound on 04/08/2022. TECHNIQUE: CT examination of the chest, abdomen, and pelvis following the administration of intravenous contrast. Coronal and sagittal reformations were performed. Dose reduction techniques were achieved by using automated exposure control and/or adjustment of mA and/or kV according to patient size and/or use of iterative reconstruction technique. CONTRAST: IOPAMIDOL 76 % ORAL - , IOPAMIDOL 76 % INTRAVENOUS SOLUTION - 75 mL, FINDINGS: There is undulation of the liver contour, suggestive of cirrhotic morphology. There is also recanalization of the umbilical vein. Previously described 1 cm hypodense lesion in the posterior and lateral aspect of the left hepatic lobe could not be visualized in this study. This could be related to phase of contrast. Given the cirrhotic morphology, recommend correlation with nonemergent CT/MRI using liver mass protocol to document a baseline. There is a tiny low-density lesion in the medial segment of the left hepatic lobe, too small to further characterize. There is subtle hyperdensity along the gallbladder wall. Since the patient had no gallstone of the abdominal ultrasound performed yesterday, this is probably related to volume averaging. There is a shotty gastrohepatic ligament lymph node measuring 9 x 13 mm. This is likely related to underlying cirrhotic morphology. There are also a few prominent periportal lymph nodes. The spleen is enlarged measuring 15.3 cm in AP dimension. The stomach is underdistended. The duodenum appears unremarkable. The pancreas demonstrates normal parenchymal enhancement. The adrenal glands appear unremarkable. There is a subcentimeter hypodense lesion in the posterior aspect of the left kidney, too small to further characterize. Additional tiny low-density lesions are too small to further characterize. Punctate right intraparenchymal calcification. The kidneys are otherwise enhancing symmetrically without any hydronephrosis. There is no nephrolithiasis. No bulky retroperitoneal lymph nodes. Severe calcified plaque is seen in the abdominal aorta and aortoiliac branches. There are a few subcentimeter pelvic sidewall lymph nodes, none of which meet the criteria for enlargement. The shared services representative lymph node along the left pelvic sidewall measures 9 x 9 mm. The bladder appears unremarkable. The prostate is mildly enlarged. The seminal vesicles are fluid-filled. There is mild bilateral perinephric stranding, likely related to chronic medical renal disease. Trace ascites. There are gaseous distention of transverse colon. Oral contrast is seen in the small bowel loops of the left upper quadrant. The small and large bowel are otherwise normal in caliber. The appendix is normal in caliber. Moderate amount of stool burden. There is no intraperitoneal free air. No gross abnormalities of the abdominal wall. Bone windows demonstrate no suspicious osseous lesion. There are multilevel mild spondylotic changes of the lumbar spine. The bones are osteopenic. The central airways are patent. There is a small right, trace left-sided pleural effusion. There is patchy consolidative opacities in the bilateral lower lobes. In addition to that, there is subtle ground-glass opacities and tree-in-bud opacities in the bilateral lower lobes. Imaging findings are suggestive of infectious/inflammatory process. No suspicious pulmonary nodule is evident. There is mild biapical pleuroparenchymal scarring. No pneumothorax. There is also smooth interlobular septal thickening in the bilateral lower lobes. Debris in mid and distal thoracic esophagus is suggestive of reflux esophagitis. The visualized portion of the thyroid gland appears unremarkable. There is no axillary lymphadenopathy. Moderate bilateral gynecomastia. The ascending thoracic aorta is normal in caliber. There is moderate diffuse calcified plaque in the aortic arch. The main pulmonary artery is within normal limits. The heart size is enlarged. No pericardial effusion. Calcified plaque is seen along the LAD. There are multiple shotty mediastinal and hilar lymph nodes. The shared services representative right hilar lymph node measures 14 x 14 mm. The index subcarinal lymph node measures 18 x 15 mm. The left infrahilar lymph node measure 9 x 10 mm. Small hiatal hernia. IMPRESSION: Cirrhotic morphology of the liver with recanalizati (more content not included)... [facility] CT Chest Abdomen Pelvis With ContrastOrdered By: Sylwia Reina on 04-12-2022 [facility] Work Phone: Laboratory - Chemistry and C hemistry - challengeon 04-12-2022 Sodium [Moles/Vol] 132 mmol/L Low 135 - 145 mmol/L [facility] Magnesium Levelon 04-12-2022 Magnesium [Mass/Vol] 2.2 mg/dL 1.6 - 2 .4 mg/dL [facility] Magnesium [Mass/Vol]on 04-12 Interpretation and review of laboratory results Normal [facility] No Panel Informationon 04-12 Interpretation and review of laboratory results Abnormal [facility] Osmolality (U) [Osmolality]o n 04-12-2022 No established reference range. [facility] Osmolality, Urineon 04-12-20 22 Osmolality (U) [Osmolality] 426 mosm/kg mOsm/kg [facility] Sodiumon 04-12-2022 Sodium [Moles/Vol] 130 mmol/L Low 135 - 145 mmol/L [facility] Sodium (U) [Moles/Vol]on No established reference range. [facility] Sodium [Moles/Vol]on 022 Interpretation and review of laboratory results Abnormal [facility] Sodium, Urine, Randomon 04-02 Sodium (U) [Moles/Vol] 73 mmol/L [facility] Basic metabolic 2000 panelon 04-11-2022 Anion gap [Moles/Vol] 14 mmol/L 10 - 2 0 mmol/L [facility] Calcium [Mass/Vol] 8.8 mg/dL 8.4 - 10. 2 mg/dL [facility] Chloride [Moles/Vol] 96 mmol/L Low 98 - 10 8 mmol/L [facility] Creatinine [Mass/Vol] 0.74 mg/dL Low 0.80 - 1.30 mg/dL [facility] GFR/1.73 sq M.predicted CKD-EPI (S/P/Bld) [Vol rate/Area] 92 - PINF [facility] Comment on above: Estimated GFR was ca lculated using the 2020 CKD-EPI creatinine equation. Glucose [Mass/Vol] 104 mg/dL High 65 - 99 mg/dL [facility] HCO3 [Moles/Vol] 22 mmol/L 21 - 32 mmol/L [facility] Potassium [Moles/Vol] 3.6 mmol/L 3.5 - 5.1 mmol/L [facility] Urea nitrogen [Mass/Vol] 9 mg/dL 8 - 25 mg/dL [facility] Urea nitrogen/Creatinine [Mass ratio] 12.2 mg/mg 10 - 20 [facility] has implemented the eGFR calculation approach that does not have a coefficient for race that conforms to the NKF-ASN Task Force Recommendations. [facility] CBC panel Auto (Bld)on 04-11 Erythrocyte distribution width (RBC) [Entitic vol] 13.2 % 11.6 - 14.8 % [facility] Hematocrit (Bld) [Volume fraction] 24.2 % Low 41 - 53 % [facility] Hemoglobin (Bld) [Mass/Vol] 8.6 g/dL Low 13.5 - 17.5 g/dL [facility] Interpretation and review of laboratory results Abnormal [facility] MCH (RBC) [Entitic mass] 31.6 pg 26 - 34 pg [facility] MCHC (RBC) [Mass/Vol] 35.5 g/dL 31 - 3 7 g/dL [facility] MCV (RBC) [Entitic vol] 89.0 fL 80 - 100 fL [facility] Nucleated RBC (Bld) [#/Vol] 0.00 10*3/uL [facility] Nucleated RBC/100 WBC (Bld) [Ratio] 0.0 % [facility] Platelet mean volume (Bld) [Entitic vol] 8.9 fL Low 9.4 - 12.4 fL [facility] Platelets (Bld) [#/Vol] 96 10*3/uL Low [facility] RBC (Bld) [#/Vol] 2.72 10*6/uL Low [facility] WBC (Bld) [#/Vol] 2.55 10*3/uL Low [facility] Laboratory - Chemistry and C hemistry - challengeon 04-11-2022 Sodium [Moles/Vol] 128 mmol/L Low 135 - 145 mmol/L [facility] Magnesium Levelon 04-11-2022 Magnesium [Mass/Vol] 2.2 mg/dL 1.6 - 2 .4 mg/dL [facility] Magnesium [Mass/Vol]on 04-11 Interpretation and review of laboratory results Normal [facility] No Panel Informationon 04-11 Interpretation and review of laboratory results Abnormal [facility] Osmolality (U) [Osmolality]O rdered By: Holly Mary on 04-11-2022 No established reference range. [facility] Osmolality, UrineOrdered By: Holly Mary on 04-11-2022 Osmolality (U) [Osmolality] 240 mosm/kg mOsm/kg [facility] Sodiumon 04-11-2022 Sodium [Moles/Vol] 129 mmol/L Low 135 - 145 mmol/L [facility] Sodium [Moles/Vol] 128 mmol/L Low 135 - 145 mmol/L [facility] Sodium [Moles/Vol] 126 mmol/L Low 135 - 145 mmol/L [facility] Sodium [Moles/Vol]on 022 Interpretation and review of laboratory results Abnormal [facility] Interpretation and review of laboratory results Abnormal [facility] Interpretation and review of laboratory results Abnormal [facility] Basic metabolic 2000 panelon 04-10-2022 Anion gap [Moles/Vol] 15 mmol/L 10 - 2 0 mmol/L [facility] Calcium [Mass/Vol] 8.5 mg/dL 8.4 - 10. 2 mg/dL [facility] Chloride [Moles/Vol] 90 mmol/L Low 98 - 10 8 mmol/L [facility] Creatinine [Mass/Vol] 0.70 mg/dL Low 0.80 - 1.30 mg/dL [facility] GFR/1.73 sq M.predicted CKD-EPI (S/P/Bld) [Vol rate/Area] 94 - PINF [facility] Comment on above: Estimated GFR was ca lculated using the 2020 CKD-EPI creatinine equation. Glucose [Mass/Vol] 101 mg/dL High 65 - 99 mg/dL [facility] HCO3 [Moles/Vol] 21 mmol/L 21 - 32 mmol/L [facility] Interpretation and review of laboratory results Abnormal [facility] Potassium [Moles/Vol] 3.8 mmol/L 3.5 - 5.1 mmol/L [facility] Sodium [Moles/Vol] 122 mmol/L Low 135 - 145 mmol/L [facility] Urea nitrogen [Mass/Vol] 7 mg/dL Low 8 - 25 mg/dL [facility] Urea nitrogen/Creatinine [Mass ratio] 10.0 mg/mg 10 - 20 [facility] has implemented the eGFR calculation approach that does not have a coefficient for race that conforms to the NKF-ASN Task Force Recommendations. [facility] CBC panel Auto (Bld)on 04-10 Erythrocyte distribution width (RBC) [Entitic vol] 13.1 % 11.6 - 14.8 % [facility] Hematocrit (Bld) [Volume fraction] 24.2 % Low 41 - 53 % [facility] Hemoglobin (Bld) [Mass/Vol] 8.5 g/dL Low 13.5 - 17.5 g/dL [facility] Interpretation and review of laboratory results Abnormal [facility] MCH (RBC) [Entitic mass] 31.7 pg 26 - 34 pg [facility] MCHC (RBC) [Mass/Vol] 35.1 g/dL 31 - 3 7 g/dL [facility] MCV (RBC) [Entitic vol] 90.3 fL 80 - 100 fL [facility] Nucleated RBC (Bld) [#/Vol] 0.00 10*3/uL [facility] Nucleated RBC/100 WBC (Bld) [Ratio] 0.0 % [facility] Platelet mean volume (Bld) [Entitic vol] 9.3 fL Low 9.4 - 12.4 fL [facility] Platelets (Bld) [#/Vol] 83 10*3/uL Low [facility] RBC (Bld) [#/Vol] 2.68 10*6/uL Low [facility] WBC (Bld) [#/Vol] 2.57 10*3/uL Low [facility] Copper, Serumon 04-10-2022 Copper 118 [facility] Comment on above: ADDITIONAL INFORMATION This test was developed and its performance characteristics determined by [facility] in a manner consistent with CLIA requirements. This test has not been cleared or approved by the U.S. Food and Drug Administration. Test Performed by: [facility] [address] [place] [address] Range Ecologist: Juan Manuel Willard M.D. Ph.D.; CLIA# [id number] Immunofixation, SerumOrdered By: Kike Madrigal on 04-10-2022 Protein Fractions [Interp] Normal Normal [facility] Protein Fractions [Interp] No paraproteins detected. A negative serum immunofixation and/or serum protein electrophoresis is insufficient to rule out a monoclonal protein. Recommend serum free light chains if clinically indicated. Reviewed by Pathologist: Van Billings MD. [facility] Magnesium Levelon 04-10-2022 Magnesium [Mass/Vol] 2.1 mg/dL 1.6 - 2 .4 mg/dL [facility] Magnesium [Mass/Vol]on 04-10 Interpretation and review of laboratory results Normal [facility] No Panel Informationon 04-10 [facility] Protein Electrophoresis, Blo odon 04-10-2022 Albumin [Mass/Vol] 3.8 g/dL 3.1 - 5.5 g/dL [facility] Alpha 1 globulin Elph [Mass/Vol] 0.3 g/dL 0.2 - 0.5 g/dL [facility] Alpha 2 globulin Elph [Mass/Vol] 0.6 g/dL 0.4 - 1.1 g/dL [facility] Beta globulin Elph [Mass/Vol] 0.9 g/dL 0.6 - 1.3 g/dL [facility] Gamma globulin Elph [Mass/Vol] 1.1 g/dL 0.6 - 1.8 g/dL [facility] Doctor Of Naprapathy review Jethro (Unsp spec) [Interp] Reviewed by Pathologist: Dion Harrell MD. [facility] Protein [Mass/Vol] 6.6 g/dL 6 - 8 g/dL [facility] alth Protein Fractions [Interp] Normal pattern. Serum protein electrophoresis is insufficient to rule out a monoclonal protein. Recommend serum immunofixation and serum free light chains if clinically indicated. [facility] Sodiumon 04-10-2022 Sodium [Moles/Vol] 123 mmol/L Low 135 - 145 mmol/L [facility] Sodium [Moles/Vol] 122 mmol/L Low 135 - 145 mmol/L [facility] Sodium [Moles/Vol] 122 mmol/L Low 135 - 145 mmol/L [facility] Sodium [Moles/Vol] 122 mmol/L Low 135 - 145 mmol/L [facility] Sodium [Moles/Vol]on 022 Interpretation and review of laboratory results Abnormal [facility] Interpretation and review of laboratory results Abnormal [facility] Interpretation and review of laboratory results Abnormal [facility] Interpretation and review of laboratory results Abnormal [facility] Zincon 04-10-2022 Zinc [Mass/Vol] 66 [facility] Comment on above: ADDITIONAL INFORMATION This test was developed and its performance characteristics determined by [facility] in a manner consistent with CLIA requirements. This test has not been cleared or approved by the U.S. Food and Drug Administration. Test Performed by: [facility] [place] [address] Range Ecologist: Juan Manuel Willard M.D. Ph.D.; CLIA# [id number] Basic metabolic 2000 panelon 04-09-2022 Anion gap [Moles/Vol] 12 mmol/L 10 - 2 0 mmol/L [facility] Calcium [Mass/Vol] 8.6 mg/dL 8.4 - 10. 2 mg/dL [facility] Chloride [Moles/Vol] 92 mmol/L Low 98 - 10 8 mmol/L [facility] Creatinine [Mass/Vol] 0.73 mg/dL Low 0.80 - 1.30 mg/dL [facility] GFR/1.73 sq M.predicted CKD-EPI (S/P/Bld) [Vol rate/Area] 93 - PINF [facility] Comment on above: Estimated GFR was ca lculated using the 2020 CKD-EPI creatinine equation. Glucose [Mass/Vol] 111 mg/dL High 65 - 99 mg/dL [facility] HCO3 [Moles/Vol] 22 mmol/L 21 - 32 mmol/L [facility] Interpretation and review of laboratory results Abnormal [facility] Potassium [Moles/Vol] 3.8 mmol/L 3.5 - 5.1 mmol/L [facility] Sodium [Moles/Vol] 122 mmol/L Low 135 - 145 mmol/L [facility] Urea nitrogen [Mass/Vol] 6 mg/dL Low 8 - 25 mg/dL [facility] Urea nitrogen/Creatinine [Mass ratio] 8.2 mg/mg Low 10 - 20 [facility] has implemented the eGFR calculation approach that does not have a coefficient for race that conforms to the NKF-ASN Task Force Recommendations. [facility] CT Chest Abdomen Pelvis With Contraston 04-09-2022 Radiology Study observation (narrative) [facility] Magnesium Levelon 04-09-2022 Magnesium [Mass/Vol] 1.8 mg/dL 1.6 - 2 .4 mg/dL [facility] Magnesium [Mass/Vol]on 04-09 Interpretation and review of laboratory results Normal [facility] No Panel Informationon 04-09 [facility] Sodiumon 04-09-2022 Sodium [Moles/Vol] 121 mmol/L Low 135 - 145 mmol/L [facility] Sodium [Moles/Vol] 120 mmol/L Low 135 - 145 mmol/L [facility] Sodium [Moles/Vol] 124 mmol/L Low 135 - 145 mmol/L [facility] Sodium [Moles/Vol] 122 mmol/L Low 135 - 145 mmol/L [facility] Sodium [Moles/Vol]on 022 Interpretation and review of laboratory results Abnormal [facility] Interpretation and review of laboratory results Abnormal [facility] Interpretation and review of laboratory results Abnormal [facility] Interpretation and review of laboratory results Abnormal [facility] Basic metabolic 2000 panelon 04-08-2022 Anion gap [Moles/Vol] 13 mmol/L 10 - 2 0 mmol/L [facility] Calcium [Mass/Vol] 8.5 mg/dL 8.4 - 10. 2 mg/dL [facility] Chloride [Moles/Vol] 94 mmol/L Low 98 - 10 8 mmol/L [facility] Creatinine [Mass/Vol] 0.67 mg/dL Low 0.80 - 1.30 mg/dL [facility] GFR/1.73 sq M.predicted CKD-EPI (S/P/Bld) [Vol rate/Area] 95 - PINF [facility] Comment on above: Estimated GFR was ca lculated using the 2020 CKD-EPI creatinine equation. Glucose [Mass/Vol] 104 mg/dL High 65 - 99 mg/dL [facility] HCO3 [Moles/Vol] 21 mmol/L 21 - 32 mmol/L [facility] Potassium [Moles/Vol] 3.9 mmol/L 3.5 - 5.1 mmol/L [facility] Urea nitrogen [Mass/Vol] 8 mg/dL 8 - 25 mg/dL [facility] Urea nitrogen/Creatinine [Mass ratio] 11.9 mg/mg 10 - 20 [facility] has implemented the eGFR calculation approach that does not have a coefficient for race that conforms to the NKF-ASN Task Force Recommendations. [facility] CBC Auto Differentialon Basophils (Bld) [#/Vol] 0.01 10*3/uL [facility] Basophils/100 WBC (Bld) 0.4 % [facility] Eosinophils (Bld) [#/Vol] 0.03 10*3/uL [facility] Eosinophils/100 WBC (Bld) 1.1 % [facility] Erythrocyte distribution width (RBC) [Entitic vol] 12.9 % 11.6 - 14.8 % [facility] Hematocrit (Bld) [Volume fraction] 26.5 % Low 41 - 53 % [facility] Hemoglobin (Bld) [Mass/Vol] 9.5 g/dL Low 13.5 - 17.5 g/dL [facility] Immature granulocytes (Bld) [#/Vol] 0.01 10*3/uL [facility] Immature granulocytes/100 WBC (Bld) 0.40 % [facility] Comment on above: The IG parameter is the percentage of metamyelocytes, myelocytes and promyelocytes. An immature granulocyte count (IG) of 1% or more suggests the possibility of infection, an IG count of 3% is very likely related to an infection. Interpretation and review of laboratory results Abnormal [facility] Lymphocytes (Bld) [#/Vol] 0.14 10*3/uL Low [facility] Lymphocytes/100 WBC (Bld) 5.0 % [facility] MCH (RBC) [Entitic mass] 32.0 pg 26 - 34 pg [facility] MCHC (RBC) [Mass/Vol] 35.8 g/dL 31 - 3 7 g/dL [facility] MCV (RBC) [Entitic vol] 89.2 fL 80 - 100 fL [facility] Monocytes (Bld) [#/Vol] 0.32 10*3/uL [facility] Monocytes/100 WBC (Bld) 11.3 % [facility] Neutrophils (Bld) [#/Vol] 2.31 10*3/uL [facility] Neutrophils/100 WBC (Bld) 81.8 % [facility] Nucleated RBC (Bld) [#/Vol] 0.00 10*3/uL [facility] Nucleated RBC/100 WBC (Bld) [Ratio] 0.0 % [facility] Platelet mean volume (Bld) [Entitic vol] 8.9 fL Low 9.4 - 12.4 fL [facility] Platelets (Bld) [#/Vol] 115 10*3/uL Low [facility] RBC (Bld) [#/Vol] 2.97 10*6/uL Low [facility] WBC (Bld) [#/Vol] 2.82 10*3/uL Low [facility] HIV 1/2 Screen (4th Generati on)on 04-08-2022 HIV 1+2 Ab+HIV1 p24 Ag IA Ql Negative Negative [facility] This assay screens f or the presence of HIV-1, HIV-2 antibodies and for the presence of HIV-1 antigen. Test performed using Saniya BEN immunoassay system [facility] Hepatitis C Antibodyon 04-08 HCV Ab Ql (S) Negative Negative [facility] Test performed using [employer] BEN immunoassay system [facility] IgG, IgA, IgM Immunoglobulin son 04-08-2022 IgA [Mass/Vol] 179 mg/dL 84 - 381 mg/dL [facility] IgG [Mass/Vol] 1117 mg/dL 541 - 1694 mg/dL [facility] IgM [Mass/Vol] 98 mg/dL 43 - 238 mg/dL [facility] Interpretation and review of laboratory results Normal [facility] Immunoglobulin light chains. free panel (S)Ordered By: Osorio Penn on 04-08-2022 Ig [place] Free Light Chain 27.02 mg/L High 3.3 - 19.4 mg/L [facility] Immunoglobulin light chains.kappa.free/Immuno globulin light chains.lambda.free (S) [Mass ratio] 1.15 0.26 - 1.65 [facility] Immunoglobulin light chains.lambda.free [Mass/Vol] 23.43 mg/L 5.71 - 26.3 mg/L [facility] Interpretation and review of laboratory results Abnormal [facility] LDHon 04-08-2022 LDH Lactate to pyruvate reaction [Catalytic activity/Vol] 146 U/L 100 - 250 U/L [facility] LDH Lactate to pyruvate reac tion [Catalytic activity/Vol]on 04-08-2022 Interpretation and review of laboratory results Normal [facility] Laboratory - Chemistry and C hemistry - challengeon 04-08-2022 Sodium [Moles/Vol] 124 mmol/L Low 135 - 145 mmol/L [facility] No Panel Informationon 04-08 Interpretation and review of laboratory results Normal [facility] Interpretation and review of laboratory results Abnormal [facility] Pathologist Blood Smear Inte rpretationOrdered By: Zhen Sharpe on 04-08-2022 Clinical Question Pancytopenia [facility] Diagnosis Pancytopenia [facility] Pathologist review Pathologist comment (Bld) [Interp] Reviewed [facility] See pathology report # [id number] [facility] Pathology ConsultOrdered By: Galo Monsalve on 04-08-2022 Clinical information s9fedVZnHEHnc1crBSR mbGF mNuBpOuDaNqOiVns9NICmwi B6Csv7PZHuWHpfqP1aQIIzI SnnT4ipwnMsoTXbMJEgDNu7 wG5eoSkaoC0pSyFzOoZrNMB kRK3okROlrZSdaKJfhGOiPU 0= [facility] Work Phone: Pathology report final diagnosis Narrative k5doyRFnVDDapWEuVHSdECk drhHdWZXdfAEdI4GvcofgJA yuTU4cUR2xzSxdzXWdyPIcF CMgWyOro3swm159mKKiq7gj QUQPwscijXj3gZzqJ75wo7K 5DfswC77jqYApNUZ1IGOwJE SapYQdFGXpNPQ2GFWfrKAnS 0fjDSGdRN3xdahpRNgsDEtv TNHmwGM4LYNgtXBbJ7InHKH aMSumZRQpzwc2MwHoJx4dxW VyeTcyMFxwYXJkXHBsYWluX XQgDfLvRJNQJgBxLDVag2Xg D8V8CFSgLUrgi9mzHOOgQUt vh1TqNDbKLXMISG8YRG8rjZ M3XFaAQCBAC0dCgXM5DcK2x EP2RV64URAbQRPvsITzGJaa R780JCGmcDEcIRZcdTOioR5 ePGOmqSOxarx6NMWrCXbbm2 swDHJsPUokv7OsUPqACDYVJ A1UPR4umST5DRgWCPYUWRqa YRN8IIrloBT1l9wsfSAkn6w 8IXbcZQR0kLkpdWLmiggmGG ZzMjBccGFyXGxpNzIwXGxpb jcyMFxiMCAxLiAgUGVyaXBo YMTcyORlcP9vZCRzwSMhqeZ 9wWMpi1V2CNJzCHFqYopsOW 1ofcXjk8ilX7fbCUGdqq0km MVzuMJsSVGkVQagfmQrIf6s IBOyrkJ3cH7tNZ9zBZ7uaWb uZSAzLiAgUGVyaXBoZXJhbC DnxO0uWKTvmIRakvCyZBWeV TvetgUvlZUozOGwMKR6OXUu JbPVjd9gilamWnEsI27nQgp wYXJccGFyZFxwYXJcdiBTTU LEOWlYN8WdHTUIVIBLAOOzE rFFOV5vEoJpPRQ9CU9wVOWm C56CJcFBCQFEQ88KPXKMUGI PR2RQLYRLIByGA0AUJH0TKD DQBTLYBE5IXEpNNzLQSAyBR 1HJIB9TTXEHLSRXNJ0WRnJn QGrIK8ABZ0jJGIWjUSGQCCU VPFXjOkLGHQ1fLBo4QMFoOE F9oxqhVGK3WEj6MYOPXMDSW Y3GKIKDC32RNIZUGFAUY6UT SXJKZkZYNTUKW50TBQUHCKY SX4MGI7dVVPSXEqOUQAPLY9 3PEKEWLYKCE4XDYUBQUQVIF bAQHcFMVS3OOSZLUZJWJS8Z ASeDMvQuTGLAG7MMXiUWT5i rPOPKXHOHRRSbCZ7DrF== [facility] Work Phone: Pathology report gross observation Narrative m3rmfLXrDQVsxVSrDUJwJFo vjoMhVSKkeGZmW4XkstmlVD xrXX9tST4iuFrjyBVhpZEsR SYdRzDrp2fsm378xVBle4kv XMATcymfvNv8gFixN44pn8X 9KirvK7unZHDdOFmeOBHeGN docZKhTZt3UOVjlGQvizNcE uDkHHQruJEeiZR7JBErDS6d qrcjIPmiUZoiGFZtxlW7TRT ozOKmK5UxZPWyWR7ckzgfQN H6JPtvWHYoMVS4OmPgFAIpw 9Rihuf3BxIosNIjJQo7lWLu hVlqHFEbgEnwfQ6cEpWkUIH SZWNlaXZlZCBpcyBvbmVcY2 YxICBwZXJpcGhlcmFsIGJsb 29kIHNtZWFyIChXcmlnaHQg o7LayG0kZfkjXPXviACvXO1 qb2yaX0FpwHKnRRFeWMSWlP EwyxVtcwOgROCoNFMlS2YxM LX2AePjF3WuCJ3xaeZutTPh BWabHpGxQUtdp9NngQPfCC3 vJoK9PSfrQNWrkbYcCJW0SD 32QIKXCJ9bCqfbxVBhVB3QV PW1FNOhKJXqlvziFMUsDSDp MFxwYXJ9 [facility] Work Phone: [facility] Work Phone: Reticulocytes panel (Bld)on 04-08-2022 Hemoglobin Auto (Reticulocytes) [Entitic mass] 37.3 PG 27.7 - 38.2 PG [facility] Comment on above: The cut-off for RET- He established in our institution is 27.7-38.2 pg/RBC. A value below this range is highly suggestive of iron deficiency. At values above 38.2 pg/RBC, patients are unlikely to respond to additional iron therapy. Immature reticulocytes (Bld) [#/Vol] 11.3 % 2.3 - 15.9 % [facility] Reticulocytes (Bld) [#/Vol] 0.073 10*3/uL [facility] Reticulocytes/100 RBC (Bld) 2.5 % [facility] Sodiumon 04-08-2022 Sodium [Moles/Vol] 122 mmol/L Low 135 - 145 mmol/L [facility] Sodium [Moles/Vol] 124 mmol/L Low 135 - 145 mmol/L [facility] Sodium [Moles/Vol] 124 mmol/L Low 135 - 145 mmol/L [facility] Sodium [Moles/Vol] 121 mmol/L Low 135 - 145 mmol/L [facility] Sodium [Moles/Vol]on 022 Interpretation and review of laboratory results Abnormal [facility] Interpretation and review of laboratory results Abnormal [facility] Interpretation and review of laboratory results Abnormal [facility] Interpretation and review of laboratory results Abnormal [facility] US Abdomen Completeon 2021 1. Spleen is enlarged. 2. Abnormal hepatic echotexture is an indication of underlying liver disease often fatty infiltration. 3. 10 x 10 x 14 mm relatively hypoechoic posterior aspect lateral segment left hepatic lobe finding is indeterminate. 4. No gallstones or biliary dilatation. 5. No ascites. [employer] Workstation ID: [id number] [place] EXAMINATION: US ABDOMEN COMPLETE DATE: 04/08/2022 HISTORY: assess liver and spleen Injury/Trauma or Illness?:Illness/Other How long have you had these symptoms (acute/chronic)?:Acute Reason for exam?:Assess liver/spleen History of cancer?:u Surgeries, chemotherapy, or radiation?:u I48.91 Atrial fibrillation with slow ventricular response (HCC) COMPARISON: None available. TECHNIQUE: Sonography of the abdomen was undertaken by a technologist. FINDINGS: The proximal abdominal aorta is normal in caliber. The puz-uc-ugarrx abdominal aorta are obscured by gas. The pancreas is not well visualized. Diffusely increased echogenicity to the liver is noted. There is a relatively hypoechoic area in the posterior aspect of the lateral segment left hepatic lobe measuring about 10 x 10 x 14 mm. This is close to this inferior vena cava. No additional focal liver lesion noted. Liver measures just under 18 cm in craniocaudal span; normal. The gallbladder is fluid-filled and the sonographic Glaser sign is negative. The common duct measures 4.6 mm; normal. No pericholecystic fluid. No ascites. The right kidney measures 10.5 cm along its long axis. No right hydronephrosis. The left kidney measures about 14 cm along its long axis. No left hydronephrosis. Spleen measures about 13.8 x 6.2 x 6.9 cm this provides a splenic index of 590. This suggest splenomegaly. Estimated splenic volume is 372. This also suggests splenomegaly. [employer] Jonathan Magaña MD - 04/08/2022 EXAMINATION: US ABDOMEN COMPLETE DATE: 04/08/2022 HISTORY: assess liver and spleen Injury/Trauma or Illness?:Illness/Other How long have you had these symptoms (acute/chronic)?:Acute Reason for exam?:Assess liver/spleen History of cancer?:u Surgeries, chemotherapy, or radiation?:u I48.91 Atrial fibrillation with slow ventricular response (HCC) COMPARISON: None available. TECHNIQUE: Sonography of the abdomen was undertaken by a technologist. FINDINGS: The proximal abdominal aorta is normal in caliber. The tsr-sj-yfbbfj abdominal aorta are obscured by gas. The pancreas is not well visualized. Diffusely increased echogenicity to the liver is noted. There is a relatively hypoechoic area in the posterior aspect of the lateral segment left hepatic lobe measuring about 10 x 10 x 14 mm. This is close to this inferior vena cava. No additional focal liver lesion noted. Liver measures just under 18 cm in craniocaudal span; normal. The gallbladder is fluid-filled and the sonographic Glaser sign is negative. The common duct measures 4.6 mm; normal. No pericholecystic fluid. No ascites. The right kidney measures 10.5 cm along its long axis. No right hydronephrosis. The left kidney measures about 14 cm along its long axis. No left hydronephrosis. Spleen measures about 13.8 x 6.2 x 6.9 cm this provides a splenic index of 590. This suggest splenomegaly. Estimated splenic volume is 372. This also suggests splenomegaly. IMPRESSION: 1. Spleen is enlarged. 2. Abnormal hepatic echotexture is an indication of underlying liver disease often fatty infiltration. 3. 10 x 10 x 14 mm relatively hypoechoic posterior aspect lateral segment left hepatic lobe finding is indeterminate. 4. No gallstones or biliary dilatation. 5. No ascites. [employer] Workstation ID: [id number] [facility] Radiology Study observation (narrative) [place] US Abdomen CompleteOrdered B y: Jonathan Hayes on 04-08-2022 [facility] Work Phone: APTTon 04-07-2022 aPTT Coag (Bld) [Time] 50 s High [facility] B12/Folateon 04-07-2022 Cobalamin (Vitamin B12) [Mass/Vol] 504 pg/mL 193 - 986 pg/mL [facility] Folate [Mass/Vol] ng/mL High 3.1 - 17.5 ng/mL [facility] Comment on above: Deficient <2.2 Borderline 2.2 - 3.0 Excessive >17.5 Interpretation and review of laboratory results Abnormal [facility] CBC Auto Differentialon Basophils (Bld) [#/Vol] 0.02 10*3/uL [facility] Basophils/100 WBC (Bld) 0.6 % [facility] Eosinophils (Bld) [#/Vol] 0.05 10*3/uL [facility] Eosinophils/100 WBC (Bld) 1.5 % [facility] Erythrocyte distribution width (RBC) [Entitic vol] 12.7 % 11.6 - 14.8 % [facility] Hematocrit (Bld) [Volume fraction] 26.9 % Low 41 - 53 % [facility] Hemoglobin (Bld) [Mass/Vol] 9.4 g/dL Low 13.5 - 17.5 g/dL [facility] Immature granulocytes (Bld) [#/Vol] 0.02 10*3/uL [facility] Immature granulocytes/100 WBC (Bld) 0.60 % [facility] Comment on above: The IG parameter is the percentage of metamyelocytes, myelocytes and promyelocytes. An immature granulocyte count (IG) of 1% or more suggests the possibility of infection, an IG count of 3% is very likely related to an infection. Interpretation and review of laboratory results Abnormal [facility] Lymphocytes (Bld) [#/Vol] 0.28 10*3/uL Low [facility] Lymphocytes/100 WBC (Bld) 8.3 % [facility] MCH (RBC) [Entitic mass] 31.6 pg 26 - 34 pg [facility] MCHC (RBC) [Mass/Vol] 34.9 g/dL 31 - 3 7 g/dL [facility] MCV (RBC) [Entitic vol] 90.6 fL 80 - 100 fL [facility] Monocytes (Bld) [#/Vol] 0.32 10*3/uL [facility] Monocytes/100 WBC (Bld) 9.4 % [facility] Neutrophils (Bld) [#/Vol] 2.70 10*3/uL [facility] Neutrophils/100 WBC (Bld) 79.6 % [facility] Nucleated RBC (Bld) [#/Vol] 0.00 10*3/uL [facility] Nucleated RBC/100 WBC (Bld) [Ratio] 0.0 % [facility] Platelet mean volume (Bld) [Entitic vol] 9.2 fL Low 9.4 - 12.4 fL [facility] Platelets (Bld) [#/Vol] 130 10*3/uL Low [facility] RBC (Bld) [#/Vol] 2.97 10*6/uL Low [facility] WBC (Bld) [#/Vol] 3.39 10*3/uL Low [facility] Creatinine (U) [Mass/Vol]on 04-07-2022 No established reference range. [facility] Creatinine, Urine, Randomon 04-07-2022 Creatinine (U) [Mass/Vol] 53.1 mg/dL [facility] ECG 12 Leadon 04-07-2022 Atrial Rate 220 BPM [facility] Q-T Interval 462 ms [facility] QRS Duration 118 ms [facility] QTC Calculation (Bezet) 412 ms [facility] R [place]ady 74 degrees [facility] T Grady 64 degrees [facility] Ventricular Rate [address] [facility] Atrial fibrillation with slow ventricular response Incomplete right bundle branch block Nonspecific ST abnormality Abnormal ECG Confirmed by Barry Nichols MD ([id number]) on 04/07/2022 10:08:05 PM MUSE [facility] EKGon 04-07-2022 Ordered by an unspecified provider. [facility] EKG 12-leadon 04-07-2022 Atrial Rate 58 BPM [facility] Q-T Interval 522 ms [facility] QRS Duration 134 ms [facility] QTC Calculation (Bezet) 451 ms [facility] R [place]ady 87 degrees [facility] T Grady 69 degrees [facility] Ventricular Rate [address] [facility] Atrial fibrillation with slow ventricular response Right bundle branch block Abnormal ECG ECG Cart Interpretation see physician note for interpretation. Confirmed by Thi Zapien ([id number]) on 04/07/2022 7:18:47 PM MUSE [facility] Echocardiogram complete w co ntrastOrdered By: Jane Cosby on 04-07-2022 Aortic valve area 3.52821 cm [facility] Work Phone: AV mean gradient 3.[address] [facility] Work Phone: AV peak gradient 6.[address] [facility] Work Phone: EF 60.3045 % [facility] Work Phone: [facility] Work Phone: Echocardiogram complete w co ntraston 04-07-2022 Patient Info Name: SALVADOR GLASS Age: 81 years : 1940 Gender: Male Ht: 183 cm Wt: 83 kg BSA: 2.05 m2 HR: 61 bpm BP: 142 / 61 mmHg Heart Rhythm: Atrial Fibrillation Technical Quality: Poor, Fair Exam Date: 04/07/2022 6:48 AM Patient Status: Inpatient Bristle Machine Operator: Sheba Ta, MARZENA, RVT Exam Type: ECHOCARDIOGRAM COMPLETE W CONTRAST Study Info Indications R55 - Syncope and collapse I48.91 - Unspecified atrial fibrillation Referring Physician: SWHETHA CARR; [id number] BMI: 24.68 kg/m2 Summary 1. Left ventricular systolic function is normal with an ejection fraction by Biplane Method of Discs of 60 %. 2. Indeterminate diastolic function. 3. Right ventricle is moderately enlarged with normal systolic function. 4. There is moderate tricuspid valve regurgitation. 5. There is significant pulmonary hypertension, estimated right ventricle systolic pressure is 71 mmHg assuming a right atrial pressure of 15 mmHg. History/Risk Factors Hypertension: Yes Tobacco Use: Former Valve Disease - TV: Moderate History/Risk Factors Atrial fibrillation, syncope. Procedure(s): Complete two-dimensional, color flow and Doppler transthoracic echocardiogram is performed with contrast. Definity explained to patient. Patient verbalizes understanding and agrees to proceed. Definity 1.3ml/8.7ml normal sterile saline 2 ml total given IV over 30-60 seconds. Left Ventricle Left ventricular chamber dimension is moderately enlarged. Left ventricular systolic function is normal with an ejection fraction by Biplane Method of Discs of 60 %. Normal left ventricular mass. Left ventricular segmental wall motion is normal. Indeterminate diastolic function. Right Ventricle Right ventricular chamber dimension is moderately enlarged. Right ventricular systolic function is normal. Left Atria Left atrial chamber is severely enlarged with a left atrial volume index of 62 ml/m2 by BP MOD. Right Atria Right atrial chamber dimension is enlarged. Aortic Valve The aortic valve is trileaflet. There is no aortic valve sclerosis. There is no aortic valve stenosis. There is no aortic valve regurgitation. Pulmonic Valve The pulmonic valve is normal. There is no pulmonic valve stenosis. There is trace pulmonic regurgitation. Mitral Valve The mitral valve has normal leaflets. There is no mitral valve stenosis. There is trace mitral valve regurgitation. Tricuspid Valve The tricuspid valve leaflets are normal. There is no significant tricuspid valve stenosis. There is moderate tricuspid valve regurgitation. There is significant pulmonary hypertension, estimated right ventricle systolic pressure is 71 mmHg assuming a right atrial pressure of 15 mmHg. Pericardium/Pleural The pericardium appears normal. There is no pericardial effusion. Inferior Vena Cava Dilated inferior vena cava with <50% collapse upon inspiration consistent with elevated right atrial pressure. Aorta The aortic measurements are indexed to age and body surface area. The aortic root is normal measuring 3.3 cm with an index of 1.6 cm/m2. The proximal ascending aorta is normal measuring 3.3 cm with an index of 1.6 cm/m2. Wall Motion Scoring Wall Motion Scoring Index: 1.00 Left Ventricular Outflow Tract - Name Value Normal - LVOT 2D - LVOT Diameter 2.2 cm LVOT Doppler - LVOT Peak Velocity 1.4 m/s LVOT Peak Gradient 4 mmHg LVOT Mean Gradient 2 mmHg LVOT VTI 30 cm LVOT VTI/AV VTI Ratio 0.9 LVOT Stroke Volume 111 ml LVOT Stroke Index 54.22 ml/m2 LVOT CO 5.7 l/min LVOT CI 2.8 L/min/m2 Pulmonic Valve - Name Value Normal - RVOT Doppler - RVOT Peak Velocity 114 cm/s RVOT Peak Gradient 3 mmHg RVOT Mean Gradient 1 (more content not included)... [employer] CV Day, Jane AlvarezTesfaye D - 04/07/2022 Patient Info Name: SALVADOR GLASS Age: 81 years : 1940 Gender: Male Ht: 183 cm Wt: 83 kg BSA: 2.05 m2 HR: 61 bpm BP: 142 / 61 mmHg Heart Rhythm: Atrial Fibrillation Technical Quality: Poor, Fair Exam Date: 04/07/2022 6:48 AM Patient Status: Inpatient Bristle Machine Operator: Sheba Ta, MARZENA, RVT Exam Type: ECHOCARDIOGRAM COMPLETE W CONTRAST Study Info Indications R55 - Syncope and collapse I48.91 - Unspecified atrial fibrillation Referring Physician: SHWETHA CARR; [id number] BMI: 24.68 kg/m2 Summary 1. Left ventricular systolic function is normal with an ejection fraction by Biplane Method of Discs of 60 %. 2. Indeterminate diastolic function. 3. Right ventricle is moderately enlarged with normal systolic function. 4. There is moderate tricuspid valve regurgitation. 5. There is significant pulmonary hypertension, estimated right ventricle systolic pressure is 71 mmHg assuming a right atrial pressure of 15 mmHg. History/Risk Factors Hypertension: Yes Tobacco Use: Former Valve Disease - TV: Moderate History/Risk Factors Atrial fibrillation, syncope. Procedure(s): Complete two-dimensional, color flow and Doppler transthoracic echocardiogram is performed with contrast. Definity explained to patient. Patient verbalizes understanding and agrees to proceed. Definity 1.3ml/8.7ml normal sterile saline 2 ml total given IV over 30-60 seconds. Left Ventricle Left ventricular chamber dimension is moderately enlarged. Left ventricular systolic function is normal with an ejection fraction by Biplane Method of Discs of 60 %. Normal left ventricular mass. Left ventricular segmental wall motion is normal. Indeterminate diastolic function. Right Ventricle Right ventricular chamber dimension is moderately enlarged. Right ventricular systolic function is normal. Left Atria Left atrial chamber is severely enlarged with a left atrial volume index of 62 ml/m2 by BP MOD. Right Atria Right atrial chamber dimension is enlarged. Aortic Valve The aortic valve is trileaflet. There is no aortic valve sclerosis. There is no aortic valve stenosis. There is no aortic valve regurgitation. Pulmonic Valve The pulmonic valve is normal. There is no pulmonic valve stenosis. There is trace pulmonic regurgitation. Mitral Valve The mitral valve has normal leaflets. There is no mitral valve stenosis. There is trace mitral valve regurgitation. Tricuspid Valve The tricuspid valve leaflets are normal. There is no significant tricuspid valve stenosis. There is moderate tricuspid valve regurgitation. There is significant pulmonary hypertension, estimated right ventricle systolic pressure is 71 mmHg assuming a right atrial pressure of 15 mmHg. Pericardium/Pleural The pericardium appears normal. There is no pericardial effusion. Inferior Vena Cava Dilated inferior vena cava with <50% collapse upon inspiration consistent with elevated right atrial pressure. Aorta The aortic measurements are indexed to age and body surface area. The aortic root is normal measuring 3.3 cm with an index of 1.6 cm/m2. The proximal ascending aorta is normal measuring 3.3 cm with an index of 1.6 cm/m2. Wall Motion Scoring Wall Motion Scoring Index: 1.00 Left Ventricular Outflow Tract - Name Value Normal - LVOT 2D - LVOT Diameter 2.2 cm LVOT Doppler - LVOT Peak Velocity 1.4 m/s LVOT Peak Gradient 4 mmHg LVOT Mean Gradient 2 mmHg LVOT VTI 30 cm LVOT VTI/AV VTI Ratio 0.9 LVOT Stroke Volume 111 ml LVOT Stroke Index 54.22 ml/m2 LVOT CO 5.7 l/min LVOT CI 2.8 L/min/m2 Pulmonic Valve - Name Value Normal - RVOT Doppler - RVOT Peak Velocity 114 cm/s RVOT Peak Gradient 3 mmHg RVOT Mean Gradient 1 mmHg RVOT VTI 27 cm PV Doppler - PV Peak Velocity 1.44 m/s PV Peak Gradient 7 mmHg PV Mean Gradient 4 mmHg PV VTI 35 cm Mitral Valve - Name Value Normal - MV Doppler - MV Peak Velocity 1.37 m/s MV Peak Gradient 8 mmHg MV (more content not included)... [facility] Radiology Study observation (narrative) [facility] Hepatic function 2000 panelo n 04-07-2022 Albumin [Mass/Vol] 3.9 g/dL 3.2 - 5.2 g/dL [facility] ALP [Catalytic activity/Vol] 91 U/L 40 - 150 U/L [facility] ALT [Catalytic activity/Vol] 26 U/L 14 - 65 U/L [facility] AST [Catalytic activity/Vol] 25 U/L 0 - 45 U/L [facility] Bilirubin [Mass/Vol] 1.9 mg/dL High 0 - 1.3 mg/dL [facility] Bilirubin.conjugated [Mass/Vol] 0.9 mg/dL High 0 - 0.4 mg/dL [facility] Interpretation and review of laboratory results Abnormal [facility] Protein [Mass/Vol] 7.3 g/dL 6 - 8 g/dL [facility] INR Coag (PPP) [Relative deisy e]on 04-07-2022 Interpretation and review of laboratory results Abnormal [facility] PT Coag (PPP) [Time] 15.2 s [facility] During the induction phase of oral anticoagulation, the INR may not reflect the anticoagulation status of the patient. Therapeutic ranges for INR's are: Most clinical situations: INR 2.0-3.0 Mechanical Prosthetic Valve: INR 2.5-3.5 Critical: INR >5.0 [facility] Iron Study with Ferritinon 0 9-06-2022 Ferritin [Mass/Vol] 55 ng/mL 30 - 400 ng/mL [facility] Interpretation and review of laboratory results Normal [facility] Iron [Mass/Vol] 102 ug/dL [facility] h Iron binding capacity [Mass/Vol] 338 [facility] Iron saturation [Mass fraction] 30 % 20 - 50 % [facility] Magnesiumon 04-07-2022 Magnesium [Mass/Vol] 1.7 mg/dL 1.6 - 2 .4 mg/dL [facility] Magnesium [Mass/Vol]on 04-07 Interpretation and review of laboratory results Normal [facility] No Panel Informationon 04-07 [facility] Osmolalityon 04-07-2022 Osmolality [Osmolality] 262 mosm/kg Low [facility] Osmolality (U) [Osmolality]O rdered By: Mauricio Lopez on 04-07-2022 No established reference range. [facility] Osmolality [Osmolality]on Interpretation and review of laboratory results Abnormal [facility] Osmolality, UrineOrdered By: Mauricio Lopez on 04-07-2022 Osmolality (U) [Osmolality] 450 mosm/kg mOsm/kg [facility] PT/INRon 04-07-2022 INR Coag (PPP) [Relative time] 1.2 {INR} High 0.8 - 1.1 [facility] Prealbuminon 04-07-2022 Prealbumin [Mass/Vol] 12.6 mg/dL Low 20 - 4 0 mg/dL [facility] Prealbumin [Mass/Vol]on Interpretation and review of laboratory results Abnormal [facility] Renal function 2000 panelon 04-07-2022 Albumin [Mass/Vol] 3.5 g/dL 3.2 - 5.2 g/dL [facility] Anion gap [Moles/Vol] 19 mmol/L 10 - 2 0 mmol/L [facility] Calcium [Mass/Vol] 8.3 mg/dL Low 8.4 - 10. 2 mg/dL [facility] Chloride [Moles/Vol] 90 mmol/L Low 98 - 10 8 mmol/L [facility] Creatinine [Mass/Vol] 0.61 mg/dL Low 0.80 - 1.30 mg/dL [facility] GFR/1.73 sq M.predicted CKD-EPI (S/P/Bld) [Vol rate/Area] 98 - PINF [facility] Comment on above: Estimated GFR was ca lculated using the 2020 CKD-EPI creatinine equation. Glucose [Mass/Vol] 92 mg/dL 65 - 99 mg/dL [facility] HCO3 [Moles/Vol] 16 mmol/L Low 21 - 32 mmol/L [facility] Interpretation and review of laboratory results Abnormal [facility] Phosphate [Mass/Vol] 2.9 mg/dL 2.3 - 3 .7 mg/dL [facility] Potassium [Moles/Vol] 4.4 mmol/L 3.5 - 5.1 mmol/L [facility] Sodium [Moles/Vol] 121 mmol/L Low 135 - 145 mmol/L [facility] Urea nitrogen [Mass/Vol] 8 mg/dL 8 - 25 mg/dL [facility] Urea nitrogen/Creatinine [Mass ratio] 13.1 mg/mg 10 - 20 [facility] Services has implemented the eGFR calculation approach that does not have a coefficient for race that conforms to the NKF-ASN Task Force Recommendations. [facility] Reticulocytes panel (Bld)on 04-07-2022 Hemoglobin Auto (Reticulocytes) [Entitic mass] 35.8 PG 27.7 - 38.2 PG [facility] Comment on above: The cut-off for RET- He established in our institution is 27.7-38.2 pg/RBC. A value below this range is highly suggestive of iron deficiency. At values above 38.2 pg/RBC, patients are unlikely to respond to additional iron therapy. Immature reticulocytes (Bld) [#/Vol] 10.1 % 2.3 - 15.9 % [facility] Reticulocytes (Bld) [#/Vol] 0.062 10*3/uL [facility] Reticulocytes/100 RBC (Bld) 2.1 % [facility] SodiumOrdered By: Christal Ni i on 04-07-2022 Sodium [Moles/Vol] 119 mmol/L Critically low 135 - 1 45 mmol/L [facility] Sodiumon 04-07-2022 Sodium [Moles/Vol] 120 mmol/L Low 135 - 145 mmol/L [facility] Sodium [Moles/Vol] 121 mmol/L Low 135 - 145 mmol/L [facility] SodiumOrdered By: Stephanie peterson on 04-07-2022 Sodium [Moles/Vol] 119 mmol/L Critically low 135 - 1 45 mmol/L [facility] Sodium (U) [Moles/Vol]on No established reference range. [facility] Sodium [Moles/Vol]Ordered By : Christal Reddy on 04-07-2022 Interpretation and review of laboratory results Abnormal [facility] Sodium [Moles/Vol]on 022 Interpretation and review of laboratory results Abnormal [facility] Interpretation and review of laboratory results Abnormal [facility] Sodium [Moles/Vol]Ordered By : Stephanie Aparicio on 04-07-2022 Interpretation and review of laboratory results Abnormal [facility] Sodium, Urine, Randomon - Sodium (U) [Moles/Vol] 108 mmol/L [facility] TSH DL <= 0.005 mIU/L Qnon 0 04-07-2022 Interpretation and review of laboratory results Normal [facility] TSH Qn 2.49 m[IU]/L [facility] UrinalysisOrdered By: Sravanthi Gregg on 04-07-2022 Bacteria Auto Ql (U) None Seen None Se en /hpf [facility] Bilirubin Ql (U) Negative Negative [facility] th Clarity Refractometry automated (U) Clear Clear [facility] Color (U) Yellow Colorless, Yellow [facility] Glucose Auto test strip (U) [Mass/Vol] Negative Negative mg/dL [facility] Hemoglobin Auto test strip Ql (U) Negative Negative [facility] Hyaline casts Auto (Urine sed) [#/Area] 0-2 [facility] Interpretation and review of laboratory results Abnormal [facility] Ketones (U) [Mass/Vol] Trace Abnormal Negat sommer mg/dL [facility] Leukocyte esterase Auto test strip Ql (U) Negative Negative [facility] Mucus Auto (Urine sed) [#/Area] Rare None Seen, Rare /lpf [facility] Nitrite Auto test strip Ql (U) Negative Negative [facility] pH (U) 5.5 [pH] 5 - 7 [facility] Protein (U) [Mass/Vol] Negative Negat sommer mg/dL [facility] RBC Auto (Urine sed) [#/Area] [facility] Specific gravity (U) [Rel density] 1.013 1.005 - 1.025 [facility] Urobilinogen (U) [Mass/Vol] mg/dL NINF - 2.0 mg/dL [facility] WBC Auto (Urine sed) [#/Area] [facility] Microscopic examinat ion is performed on all urinalysis samples and only positive findings are reported. The test for blood on the chemical analytic portion of urinalysis may also be positive due to hemoglobinuria and myoglobinuria and if red blood cells are present they are quantified by microscopic examination. [facility] XR Chest 1 Viewon 04-07-2022 No acute findings. Workstation ID: [id number] GE RIS EXAMINATION: XR CHEST PA/AP, 04/06/2022 HISTORY: trauma COMPARISON: None available. FINDINGS: The heart is mildly enlarged. The mediastinal contour and pulmonary vascularity appear within normal limits. The lungs are well expanded and appear clear. No acute osseous injury is seen. [facility] Juan Manuel Orr MD - 04/07/2022 EXAMINATION: XR CHEST PA/AP, 04/06/2022 HISTORY: trauma COMPARISON: None available. FINDINGS: The heart is mildly enlarged. The mediastinal contour and pulmonary vascularity appear within normal limits. The lungs are well expanded and appear clear. No acute osseous injury is seen. IMPRESSION: No acute findings. Workstation ID: [id number] [facility] XR Chest 1 ViewOrdered By: Deonna Orr on 04-07-2022 [facility] Work Phone: aPTT Coag (Bld) [Time]on Interpretation and review of laboratory results Abnormal [facility] Therapeutic range fo r APTT's is 68 - 104 seconds [facility] Basic metabolic 2000 panelOr dered By: Amanda Can on 04-06-2022 Anion gap [Moles/Vol] 16 mmol/L 10 - 2 0 mmol/L [facility] Calcium [Mass/Vol] 8.7 mg/dL 8.4 - 10. 2 mg/dL [facility] Chloride [Moles/Vol] 87 mmol/L Low 98 - 10 8 mmol/L [facility] Creatinine [Mass/Vol] 0.87 mg/dL 0.80 - 1.30 mg/dL [facility] GFR/1.73 sq M.predicted CKD-EPI (S/P/Bld) [Vol rate/Area] 88 - PINF [facility] Comment on above: Estimated GFR was ca lculated using the 2020 CKD-EPI creatinine equation. Glucose [Mass/Vol] 105 mg/dL High 65 - 99 mg/dL [facility] HCO3 [Moles/Vol] 20 mmol/L Low 21 - 32 mmol/L [facility] Interpretation and review of laboratory results Abnormal [facility] Potassium [Moles/Vol] 4.0 mmol/L 3.5 - 5.1 mmol/L [facility] Sodium [Moles/Vol] 119 mmol/L Critically low 135 - 1 45 mmol/L [facility] Urea nitrogen [Mass/Vol] 11 mg/dL 8 - 25 mg/dL [facility] Urea nitrogen/Creatinine [Mass ratio] 12.6 mg/mg 10 - 20 [facility] has implemented the eGFR calculation approach that does not have a coefficient for race that conforms to the NKF-ASN Task Force Recommendations. [facility] CBC Auto Differentialon Basophils (Bld) [#/Vol] 0.02 10*3/uL [facility] Basophils/100 WBC (Bld) 0.5 % [facility] Eosinophils (Bld) [#/Vol] 0.08 10*3/uL [facility] Eosinophils/100 WBC (Bld) 2.0 % [facility] Erythrocyte distribution width (RBC) [Entitic vol] 12.7 % 11.6 - 14.8 % [facility] Hematocrit (Bld) [Volume fraction] 28.9 % Low 41 - 53 % [facility] Hemoglobin (Bld) [Mass/Vol] 9.9 g/dL Low 13.5 - 17.5 g/dL [facility] Immature granulocytes (Bld) [#/Vol] 0.02 10*3/uL [facility] Immature granulocytes/100 WBC (Bld) 0.50 % [facility] Comment on above: The IG parameter is the percentage of metamyelocytes, myelocytes and promyelocytes. An immature granulocyte count (IG) of 1% or more suggests the possibility of infection, an IG count of 3% is very likely related to an infection. Interpretation and review of laboratory results Abnormal [facility] Lymphocytes (Bld) [#/Vol] 0.36 10*3/uL Low [facility] Lymphocytes/100 WBC (Bld) 9.1 % [facility] MCH (RBC) [Entitic mass] 31.2 pg 26 - 34 pg [facility] MCHC (RBC) [Mass/Vol] 34.3 g/dL 31 - 3 7 g/dL [facility] MCV (RBC) [Entitic vol] 91.2 fL 80 - 100 fL [facility] Monocytes (Bld) [#/Vol] 0.50 10*3/uL [facility] Monocytes/100 WBC (Bld) 12.6 % [facility] Neutrophils (Bld) [#/Vol] 2.99 10*3/uL [facility] Neutrophils/100 WBC (Bld) 75.3 % [facility] Nucleated RBC (Bld) [#/Vol] 0.00 10*3/uL [facility] Nucleated RBC/100 WBC (Bld) [Ratio] 0.0 % [facility] Platelet mean volume (Bld) [Entitic vol] 9.4 fL 9.4 - 12.4 fL [facility] Platelets (Bld) [#/Vol] 123 10*3/uL Low [facility] RBC (Bld) [#/Vol] 3.17 10*6/uL Low [facility] ealth WBC (Bld) [#/Vol] 3.97 10*3/uL Low [facility] eah [facility] CPK NO MBon 04-06-2022 CK [Catalytic activity/Vol] 60 U/L 60 - 225 U/L [facility] CT Cervical Spine Without Co ntraston 04-06-2022 [id number] diffuse disc disease without fracture. Workstation ID: [id number] [facility] EXAMINATION: CT CERVICAL SPINE WITHOUT CONTRAST 3D HISTORY: ORDERING SYSTEM PROVIDED HISTORY: trauma, TECHNOLOGIST PROVIDED HISTORY: Injury/Trauma Reason for exam: PT INTO ER BY EMS D/T FALL AT HOME. PT STATES HE LIVES ALONE AND JUST ATE DINNER. PT STATES HE REMEMBERS FALLING, NO KNOWN TIME UNCONSCIOUSNESS. PT CALLED 911 HIMSELF AND BROUGHT TO ER. PT HAS LAC NOTED OVER LEFT BROW AT THIS TIME ALSO NOTED ST TO RIGHT ELBOW AND LEFT HAND AND LEFT FA AND HAND. Encounter Type: Initial Mechanism of injury: PT INTO ER BY EMS D/T FALL AT HOME. PT STATES HE LIVES ALONE AND JUST ATE DINNER. PT STATES HE REMEMBERS FALLING, NO KNOWN TIME UNCONSCIOUSNESS. PT CALLED 911 HIMSELF AND BROUGHT TO ER. PT HAS LAC NOTED OVER LEFT BROW AT THIS TIME ALSO NOTED ST TO RIGHT ELBOW AND LEFT HAND AND LEFT FA AND HAND. ORDERING SYSTEM PROVIDED DIAGNOSIS CODES: COMPARISON: None TECHNIQUE: CT cervical spine without IV contrast. Coronal and sagittal reformations were performed. Dose reduction techniques were achieved by using automated exposure control and/or adjustment of mA and/or kV according to patient size and/or use of iterative reconstruction technique. FINDINGS: There are no acute fractures. There is no prevertebral soft tissue swelling. There is moderate diffuse disc space narrowing with prominent disc osteophyte complexes present throughout the mid to lower cervical levels. There is resultant moderate bilateral bony neural foraminal narrowing from C3-C4 through C6-C7. There is a mild C5-C6 and C6-C7 central canal stenosis. There is no gross evidence of adenopathy. The upper airway is patent. The lung apices are grossly clear. [facility] Radiology Study observation (narrative) [facility] CT Cervical Spine Without Co ntrastOrdered By: Jasen Mendes on 04-06-2022 [facility] Work Phone: CT Head Or Brain Without Con traston 04-06-2022 Addendum by Jasen Mendes DO on 04/06/2022 11:36 PM EDT ADDENDUM: There are mild bilateral mastoid air cell effusions which could indicate mild mastoiditis. Correlate clinically. Workstation ID: [id number] [facility] Chronic microvascular ischemic change without acute intracranial abnormality. Workstation ID: [id number] [facility] EXAMINATION: CT HEAD OR BRAIN WITHOUT CONTRAST HISTORY: ORDERING SYSTEM PROVIDED HISTORY: trauma, TECHNOLOGIST PROVIDED HISTORY: Illness/Other Reason for exam: PT INTO ER BY EMS D/T FALL AT HOME. PT STATES HE LIVES ALONE AND JUST ATE DINNER. PT STATES HE REMEMBERS FALLING, NO KNOWN TIME UNCONSCIOUSNESS. PT CALLED 911 HIMSELF AND BROUGHT TO ER. PT HAS LAC NOTED OVER LEFT BROW AT THIS TIME ALSO NOTED ST TO RIGHT ELBOW AND LEFT HAND AND LEFT FA AND HAND. Encounter Type: Initial Additional signs and symptoms: PT INTO ER BY EMS D/T FALL AT HOME. PT STATES HE LIVES ALONE AND JUST ATE DINNER. PT STATES HE REMEMBERS FALLING, NO KNOWN TIME UNCONSCIOUSNESS. PT CALLED 911 HIMSELF AND BROUGHT TO ER. PT HAS LAC NOTED OVER LEFT BROW AT THIS TIME ALSO NOTED ST TO RIGHT ELBOW AND LEFT HAND AND LEFT FA AND HAND. ORDERING SYSTEM PROVIDED DIAGNOSIS CODES: COMPARISON: None TECHNIQUE: CT examination of the head without IV contrast. Dose reduction techniques were achieved by using automated exposure control and/or adjustment of mA and/or kV according to patient size and/or use of iterative reconstruction technique. FINDINGS: Left periorbital soft tissue edema noted. There is diffuse ventricular and sulcal prominence consistent with age related involutional changes. Hypoattenuation seen throughout the white matter suggests chronic microvascular ischemic changes. No evidence for any focal acute ischemia, midline shift, or mass. No skull fracture or hemorrhage. The pneumatized portions of the skull are clear. [facility] Jasen Mendes, DO - 04/06/2022 EXAMINATION: CT HEAD OR BRAIN WITHOUT CONTRAST HISTORY: ORDERING SYSTEM PROVIDED HISTORY: trauma, TECHNOLOGIST PROVIDED HISTORY: Illness/Other Reason for exam: PT INTO ER BY EMS D/T FALL AT HOME. PT STATES HE LIVES ALONE AND JUST ATE DINNER. PT STATES HE REMEMBERS FALLING, NO KNOWN TIME UNCONSCIOUSNESS. PT CALLED 911 HIMSELF AND BROUGHT TO ER. PT HAS LAC NOTED OVER LEFT BROW AT THIS TIME ALSO NOTED ST TO RIGHT ELBOW AND LEFT HAND AND LEFT FA AND HAND. Encounter Type: Initial Additional signs and symptoms: PT INTO ER BY EMS D/T FALL AT HOME. PT STATES HE LIVES ALONE AND JUST ATE DINNER. PT STATES HE REMEMBERS FALLING, NO KNOWN TIME UNCONSCIOUSNESS. PT CALLED 911 HIMSELF AND BROUGHT TO ER. PT HAS LAC NOTED OVER LEFT BROW AT THIS TIME ALSO NOTED ST TO RIGHT ELBOW AND LEFT HAND AND LEFT FA AND HAND. ORDERING SYSTEM PROVIDED DIAGNOSIS CODES: COMPARISON: None TECHNIQUE: CT examination of the head without IV contrast. Dose reduction techniques were achieved by using automated exposure control and/or adjustment of mA and/or kV according to patient size and/or use of iterative reconstruction technique. FINDINGS: Left periorbital soft tissue edema noted. There is diffuse ventricular and sulcal prominence consistent with age related involutional changes. Hypoattenuation seen throughout the white matter suggests chronic microvascular ischemic changes. No evidence for any focal acute ischemia, midline shift, or mass. No skull fracture or hemorrhage. The pneumatized portions of the skull are clear. IMPRESSION: Chronic microvascular ischemic change without acute intracranial abnormality. Workstation ID: [id number] [facility] Radiology Study observation (narrative) [facility] CT Maxillofacial Without Con traston 04-06-2022 1. No evidence for an acute maxillofacial fracture. 2. Moderate left periorbital soft tissue swelling visualized with mild soft tissue swelling visualized tracking along the left maxillary region. 3. Mild bilateral mastoid effusions. Workstation ID: [id number] [facility] EXAMINATION: CT MAXILLOFACIAL WITHOUT CONTRAST HISTORY: ORDERING SYSTEM PROVIDED HISTORY: trauma, TECHNOLOGIST PROVIDED HISTORY: Injury/Trauma Reason for exam: PT INTO ER BY EMS D/T FALL AT HOME. PT STATES HE LIVES ALONE AND JUST ATE DINNER. PT STATES HE REMEMBERS FALLING, NO KNOWN TIME UNCONSCIOUSNESS. PT CALLED 911 HIMSELF AND BROUGHT TO ER. PT HAS LAC NOTED OVER LEFT BROW AT THIS TIME ALSO NOTED ST TO RIGHT ELBOW AND LEFT HAND AND LEFT FA AND HAND. Encounter Type: Initial Mechanism of injury: PT INTO ER BY EMS D/T FALL AT HOME. PT STATES HE LIVES ALONE AND JUST ATE DINNER. PT STATES HE REMEMBERS FALLING, NO KNOWN TIME UNCONSCIOUSNESS. PT CALLED 911 HIMSELF AND BROUGHT TO ER. PT HAS LAC NOTED OVER LEFT BROW AT THIS TIME ALSO NOTED ST TO RIGHT ELBOW AND LEFT HAND AND LEFT FA AND HAND. ORDERING SYSTEM PROVIDED DIAGNOSIS CODES: COMPARISON: None TECHNIQUE: CT examination of the facial bones without IV contrast. Dose reduction techniques were achieved by using automated exposure control and/or adjustment of mA and/or kV according to patient size and/or use of iterative reconstruction technique. FINDINGS: Moderate left periorbital soft tissue swelling visualized with mild soft tissue swelling visualized tracking along the left maxillary region. There is no evidence for an acute maxillofacial fracture. The mandible is intact with no evidence for fracture or dislocation. Image portions of the temporal bones and skull base appear intact. Patient is edentulous. Mild bilateral mastoid effusions visualized. The middle ear cavities are clear. Image portions of the paranasal sinuses demonstrate mild mucosal thickening along the frontal sinuses. [facility] Jefferson Castillo MD - 04/06/2022 EXAMINATION: CT MAXILLOFACIAL WITHOUT CONTRAST HISTORY: ORDERING SYSTEM PROVIDED HISTORY: trauma, TECHNOLOGIST PROVIDED HISTORY: Injury/Trauma Reason for exam: PT INTO ER BY EMS D/T FALL AT HOME. PT STATES HE LIVES ALONE AND JUST ATE DINNER. PT STATES HE REMEMBERS FALLING, NO KNOWN TIME UNCONSCIOUSNESS. PT CALLED 911 HIMSELF AND BROUGHT TO ER. PT HAS LAC NOTED OVER LEFT BROW AT THIS TIME ALSO NOTED ST TO RIGHT ELBOW AND LEFT HAND AND LEFT FA AND HAND. Encounter Type: Initial Mechanism of injury: PT INTO ER BY EMS D/T FALL AT HOME. PT STATES HE LIVES ALONE AND JUST ATE DINNER. PT STATES HE REMEMBERS FALLING, NO KNOWN TIME UNCONSCIOUSNESS. PT CALLED 911 HIMSELF AND BROUGHT TO ER. PT HAS LAC NOTED OVER LEFT BROW AT THIS TIME ALSO NOTED ST TO RIGHT ELBOW AND LEFT HAND AND LEFT FA AND HAND. ORDERING SYSTEM PROVIDED DIAGNOSIS CODES: COMPARISON: None TECHNIQUE: CT examination of the facial bones without IV contrast. Dose reduction techniques were achieved by using automated exposure control and/or adjustment of mA and/or kV according to patient size and/or use of iterative reconstruction technique. FINDINGS: Moderate left periorbital soft tissue swelling visualized with mild soft tissue swelling visualized tracking along the left maxillary region. There is no evidence for an acute maxillofacial fracture. The mandible is intact with no evidence for fracture or dislocation. Image portions of the temporal bones and skull base appear intact. Patient is edentulous. Mild bilateral mastoid effusions visualized. The middle ear cavities are clear. Image portions of the paranasal sinuses demonstrate mild mucosal thickening along the frontal sinuses. IMPRESSION: 1. No evidence for an acute maxillofacial fracture. 2. Moderate left periorbital soft tissue swelling visualized with mild soft tissue swelling visualized tracking along the left maxillary region. 3. Mild bilateral mastoid effusions. Workstation ID: [id number] [facility] Radiology Study observation (narrative) [facility] CT Maxillofacial Without Con trastOrdered By: Jefferson Castillo on 04-06-2022 [facility] Work Phone: Magnesium Levelon 04-06-2022 Magnesium [Mass/Vol] 1.8 mg/dL 1.6 - 2 .4 mg/dL [facility] [place] Topon 04-06-2022 Extra Tube Hold for add-ons. [facility] Comment on above: Auto resulted. [facility] NT Pro BNPon 04-06-2022 Natriuretic peptide.B prohormone N-Terminal [Mass/Vol] 2644 pg/mL High 0 - 300 pg/mL [facility] Natriuretic peptide.B prohor mary N-Terminal [Mass/Vol]on 04-06-2022 Interpretation and review of laboratory results Abnormal [facility] Pride Study Cut-offs Rule In: < /= 50 Years >450 pg/mL 51 Years - 75 Years >900 pg/mL 76 Years - 99 Years >1800 pg/mL Rule Out: All patients <300 pg/mL [facility] No Panel Informationon 04-06 Extra Tube Hold for add-ons. [facility] Comment on above: Auto resulted. [facility] Interpretation and review of laboratory results Normal [facility] Troponinon 04-06-2022 Troponin I 7 ng/L NINF - 59 ng/L [facility] Troponin I Interpretation Normal [facility] XR Chest 1 Viewon 04-06-2022 Radiology Study observation (narrative) [facility] th Basophil percentageon 2021 Chloride [Moles/Vol] 100 mmol/L 98-107 [facility] Work Phone: Glucose [Mass/Vol] 96 mg/dL 74-106 [facility] Work Phone: Potassium [Moles/Vol] 4.3 mmol/L 3.5-5.1 [facility] Work Phone: Sodium [Moles/Vol] 130 mmol/L 136-145 [facility] Work Phone: Laboratory - Chemistry and C hemistry - challengeon 01-19-2022 CO2 [Moles/Vol] 27.0 mmol/L 21.0-32.0 [facility] Work Phone: Urea nitrogen/Creatinine [Mass ratio] 16.3 mg/mg - [facility] Work Phone: No Panel Informationon 01-19 Estimated GFR (MDRD) Amer 88 mL/min >60 [facility] Work Phone: Comment on above: GFR Calc Estimated GFR (MDRD) Non-Af Amer 73 mL/min >60 [facility] Work Phone: Comment on above: Non- GFR Calc Serum or plasma calcium abbi urement (mass/volume)on 01-19-2022 Calcium [Mass/Vol] 9.8 mg/dL 8.5-10.1 [facility] Work Phone: Serum or plasma creatinine m easurement (mass/volume)on 01-19-2022 Creatinine [Mass/Vol] 1.04 mg/dL 0.70-1.30 [facility] Work Phone: Comment on above: The validity of the calculated GFR & GFRAA in patients over 70 years has not been determined. Clinical correlation is essential. Serum or plasma urea nitroge n measurement (mass/volume)on 01-19-2022 Urea nitrogen [Mass/Vol] 17 mg/dL 7-18 [facility] Work Phone: Thin prep Papanicolaou smear with manual screeningon 01-19-2022 Thin prep Papanicolaou smear with manual screening 3 5-15 [facility] Work Phone: Absolute lymphocyte counton 12-31-2021 Lymphocytes Auto (Unsp spec) [#/Vol] 0.38 10*3/uL 0.83-4.51 [facility] Work Phone: Basophil percentageon 2021 Basophils/100 WBC (Bld) 1.2 % 0-1 [facility] Work Phone: Bilirubin [Mass/Vol] 1.90 mg/dL 0.20-1.00 [facility] Work Phone: Comment on above: For patients on eltr ombopag therapy, use of Dimension Walsh TBIL is not recommended. Chloride [Moles/Vol] 89 mmol/L 98-107 [facility] Work Phone: Eosinophils/100 WBC (Bld) 2.8 % 0-5 [facility] Work Phone: Glucose [Mass/Vol] 89 mg/dL 74-106 [facility] Work Phone: Neutrophils (Bld) [#/Vol] 2.3 10*3/uL 2.0-7.7 [facility] Work Phone: Neutrophils/100 WBC (Bld) 71.7 % 47-70 [facility] Work Phone: Potassium [Moles/Vol] 4.8 mmol/L 3.5-5.1 [facility] Work Phone: Protein [Mass/Vol] 8.4 g/dL 6.4-8.2 [facility] Work Phone: [phone] Sodium [Moles/Vol] 124 mmol/L 136-145 [facility] Work Phone: [phone] WBC (Bld) [#/Vol] 3.3 10*3/uL 4.4-11.0 [facility] Work Phone: [phone] Blood erythrocytes count (nu mber/volume)on 12-31-2021 RBC (Bld) [#/Vol] 3.37 10*6/uL 4.6-6.2 [facility] Work Phone: [phone] Blood hemoglobin measurement (mass/volume)on 12-31-2021 Hemoglobin (Bld) [Mass/Vol] 10.7 g/dL 13.0-16.5 [facility] Work Phone: [phone] Blood lymphocytes/100 leukoc yteson 12-31-2021 Lymphocytes/100 WBC (Bld) 11.7 % 19-41 [facility] Work Phone: [phone] Blood monocytes/100 leukocyt eson 12-31-2021 Monocytes/100 WBC (Bld) 12.0 % 0-10 [facility] Work Phone: [phone] Blood platelet mean volumeon 12-31-2021 Platelet mean volume (Bld) [Entitic vol] 9.0 fL 6.2-12.0 [facility] Work Phone: [phone] Determination of erythrocyte mean corpuscular volume (MCV)on 12-31-2021 MCV (RBC) [Entitic vol] 90.2 fL 80-94 [facility] Work Phone: [phone] Hematocrit Auto (Bld) [Volum e fraction]on 12-31-2021 Hematocrit (Bld) [Volume fraction] 30.4 % 40-54 [facility] Work Phone: [phone] Laboratory - Chemistry and C hemistry - challengeon 12-31-2021 ALP [Catalytic activity/Vol] 108 U/L 45-117 [facility] Work Phone: ALT [Catalytic activity/Vol] 29 U/L 16-61 [facility] Work Phone: [phone] CO2 [Moles/Vol] 24.0 mmol/L 21.0-32.0 [facility] Work Phone: [phone] Globulin (S) [Mass/Vol] 4.1 g/dL 2.2-4.2 [facility] Work Phone: [phone] Urea nitrogen/Creatinine [Mass ratio] 20.4 mg/mg 10-20 [facility] Work Phone: [phone] Laboratory - Hematology and Cell countson 12-31-2021 Erythrocyte distribution width (RBC) [Entitic vol] 43.2 fL 35.1-43.9 [facility] Work Phone: [phone] Erythrocyte distribution width (RBC) [Ratio] 13.1 % 11.6-14.6 [facility] Work Phone: [phone] Immature granulocytes/100 WBC (Bld) 0.600 % 0.0-0.9 [facility] Work Phone: [phone] Comment on above: IG% - Immature Granu locytes (promyelocytes, myelocytes and metamyelocytes) > 1% indicates that a LEFT SHIFT is Present. MCH (RBC) [Entitic mass] 31.8 pg 27.0-32.0 [facility] Work Phone: [phone] Nucleated RBC/100 WBC (Bld) [Ratio] 0 % 0-5 [facility] Work Phone: [phone] MCHC Auto (RBC) [Mass/Vol]on 12-31-2021 MCHC (RBC) [Mass/Vol] 35.2 g/dL 32-36 [facility] Work Phone: [phone] Panel Informationon 12-31 Estimated GFR (MDRD) Amer 89 mL/min >60 [facility] Work Phone: [phone] Comment on above: GFR Calc Estimated GFR (MDRD) Non-Af Amer 74 mL/min >60 [facility] Work Phone: [phone] Comment on above: Non- GFR Calc Thyroid Stimulating Hormone (TSH) 2.12 uIU/mL 0.358-3.74 [facility] Work Phone: Platelets bldon 12-31-2021 Platelets (Bld) [#/Vol] 159 10*3/uL 150-450 [facility] Work Phone: Review by pathologiston - Pathologist review Jethro (Unsp spec) [Interp] Reviewed [facility] Work Phone: Comment on above: Previous reported re sult: Jenna urban Edited by: RGOVELMA on 01/02/22:0911Absolute lymphopenia. Normocytic anemia.Clinical correlation suggested.Seth Woods D.O. 01/02/22 AMENDED REPORT 01/02/22 0911 PATH REV previously reported as: Jenna duggan Serum or plasma albumin abbi urement (mass/volume)on 12-31-2021 Albumin [Mass/Vol] 4.3 g/dL 3.2-5.0 [facility] Work Phone: [phone] Serum or plasma albumin/glob ulin mass ratioon 12-31-2021 Albumin/Globulin [Mass ratio] 1.0 {ratio} 0.9-2.4 [facility] Work Phone: Serum or plasma calcium abbi urement (mass/volume)on 12-31-2021 Calcium [Mass/Vol] 9.5 mg/dL 8.5-10.1 [facility] Work Phone: [phone] Serum or plasma creatinine m easurement (mass/volume)on 12-31-2021 Creatinine [Mass/Vol] 1.03 mg/dL 0.70-1.30 [facility] Work [facility]: Comment on above: The validity of the calculated GFR & GFRAA in patients over 70 years has not been determined. Clinical correlation is essential. Serum or plasma urea nitroge n measurement (mass/volume)on 12-31-2021 Urea nitrogen [Mass/Vol] 21 mg/dL 7-18 [facility] Work Phone: Thin prep Papanicolaou smear with manual screeningon 12-31-2021 Thin prep Papanicolaou smear with manual screening 31 U/L 15-37 [facility] Work Phone: Thin prep Papanicolaou smear with manual screening 11 5-15 [facility] Work Phone: ECHOCARDIOGRAM COMPLETEon Transthoracic Echocardiogram _ Patient: MARIA LUISA TIJERINA [facility] Rec#: [id number] (Age): 1940(78y) Height: 182.88(cm)/71(i Study Date: 03/28/2019 Weight: 89.81(kg)/198(l Room#: BSA: [id number] Type: Loc: Sex: M _ Reading: Shwetha Carr M.D. Referring: [place] [employer] Operator: Dariana Calvo RDCS, RVT History: Atrial fibrillation. Edema. Hypertension. Renal failure. Study Quality The study quality is fair. Summary: Patient identity verified (pause and confirm). Current HP present on patient chart. Procedure explained and patient verified understanding. Consent obtained for procedure. Conclusions: Normal LV size and systolic function LVEF 59% Mild RV enlargement with normal RV function Biatrial enlargement Mild MR Mild to moderate TR with normal RVSP Findings Reason For Study: Atrial fibrillation. Left Ventricle: The left ventricular chamber size is normal. There is normal left ventricular systolic function. The diastolic filling pattern is indeterminate based on available data. The ejection fraction is calculated to be 59% using the Method of Disks. Left Atrium: The left atrium is mildly dilated. Right Ventricle: The right ventricle is mildly dilated. The right ventricular global systolic function is normal. Right Atrium: The right atrium is mildly dilated. Aortic Valve: The aortic valve is trileaflet. The aortic valve leaflets are mildly thickened. There is no hemodynamically significant stenosis. There is no evidence of aortic regurgitation. Mitral Valve: The mitral valve leaflets appear normal. The mitral valve leaflets are mildly thickened. There is no evidence of mitral stenosis. There is mild mitral regurgitation. Tricuspid Valve: The tricuspid valve leaflets are normal. There is no tricuspid stenosis. There is mild to moderate tricuspid regurgitation. The right ventricular systolic pressure is 33.6 mmHg. Pulmonic Valve: The pulmonic valve appears normal. There is no pulmonic stenosis. There is no evidence of pulmonic regurgitation. Pericardium: The pericardium appears normal. Aorta: The aorta appears normal. Venous: The inferior vena cava is dilated. There is a greater than 50% respiratory change in the inferior vena cava dimension. HR 54 BP 165/57 Measurements Chambers 2D Name Value Normal Range IVSd (2D) 1.29 cm none LVPWd (2D) 0.98 cm none IVS:LVPW ratio (2D) 1.32 ratio none LVIDd (2D) 4.37 cm none LVIDs (2D) 2.75 cm none LVIDd (2D) index 2.06 cm/m2 none LVIDs (2D) index 1.3 cm/m2 none LV FS (2D) 37.07 % none LV FS (Teichholz) (2D) 37.1 % none LV FS (cube) (2D) 37.1 % none LV EF (2D) 59 % (60 - 100) EF Teichholz (2D) 67.24 % none Ao root diameter (2D) 3 cm none Aortic root diameter (2D) inde1.41 cm/m2 none Volumes/Mass Name Value Normal Range LA ESV SP 4CH (MOD) 79.9 ml none LA ESV SP 2CH (MOD) 93 ml none LA ESV BP (MOD) 87.7 ml none LA ESV BP (MOD) index 41.34 ml/m2 none LV EDV SP 4CH (MOD) 88.2 ml none LV ESV SP 4CH (MOD) 34 ml none EF SP 4CH (MOD) 61.45 % none LV EDV SP 2CH (MOD) 81.5 ml none LV ESV SP 2CH (MOD) 34.7 ml none EF SP 2CH (MOD) 57.42 % none LV EDV BP 87.5 ml none LV ESV BP 36 ml none BP EF (MOD) 58.86 % none LV EDV BP index 41.25 ml/m2 none LV ESV BP index 16.97 ml/m2 none LV mass (2D) 174.19 g none LV mass (2D) index 82.11 g/m2 none Diastolic/Systolic Function Name Value Normal Range MV E-wave Vmax 1.17 m/sec none MV deceleration time 173 msec none LV E:e' septal ratio 11.8 ratio none LV E:e' lateral ratio 8.1 ratio none TAPSE 1.43 cm none Aortic Valve Name Value Normal Range AV Vmax 1.17 m/sec (1 - 1.7) AV VTI 30.2 cm none AV peak gradient 5.48 mmHg (Less Than 36) AV mean gradient 3 mmHg (Less Than 20) LVOT diameter 2.1 cm (1.7 - 2.5) LVOT Vmax 0.88 m/sec (0.7 - 1.1) LVOT VTI 21.6 cm none LVOT peak gradient 3 mmHg none LVOT mean gradient 2 mmHg none DOI (VTI) 0.72 ratio none DOI (Vmax) 0.75 ratio none SV LVOT 74.78 ml none CO LVOT 4.04 l/min none Cardiac index 1.9 l/min/m2 none RONALD (continuity Vmax) 2.59 cm2 none RONALD (continuity Vmax) index 1.22 cm2/m2 none RONALD (continuity VTI) 2.48 cm2 none RONALD (continuity VTI) index 1.17 cm2/m2 none Ascending Ao 3.3 cm none Mitral Valve Name Value Normal Range MV Vmax 1.31 m/sec (0.6 - 1.3) MV VTI 33.2 cm none MV peak gradient 6.86 mmHg none MV mean gradient 3 mmHg none MV PHT 120 msec none MR Vmax 4.74 m/sec none MR VTI 173 cm none MR volume (PISA) 17.41 ml none MR flow (PISA) 47.7 ml/sec none MR ERO 0.1 cm2 none MVA (PHT) 1.83 cm2 none MVA (continuity VTI) 2.25 cm2 none Tricuspid Valve Name Value Normal Range TR Vmax 2.53 m/sec none TR peak gradient 25.6 mmHg none RAP 8 mmHg none RVSP 33.6 mmHg none Pulmonic Valve/Qp:Qs Name Value Normal Range PV Vmax 1.29 m/sec (0.6 - 0.9) PV VTI 27.6 cm none PV peak gradient 6.66 mmHg none PV mean gradient 3 mmHg none Electronically Signed at 03/28/2019 08:51:21 by: Shwetha Carr M.D. [facility] Interface, Rad In Heartlab Xper Echopacs - 03/28/2019 9:12 AM EDT Transthoracic Echocardiogram _ Patient: MARIA LUISA Kenny Rec#: [id number] (Age): 1940(78y) Height: 182.88(cm)/71(i Study Date: 03/28/2019 Weight: 89.81(kg)/198(l Room#: BSA: [id number] Type: Loc: Sex: M _ Reading: Shwetha Carr M.D. Referring: [place] [employer] Operator: Dariana Calvo [facility], RVT History: Atrial fibrillation. Edema. Hypertension. Renal failure. Study Quality The study quality is fair. Summary: Patient identity verified (pause and confirm). Current HP present on patient chart. Procedure explained and patient verified understanding. Consent obtained for procedure. Conclusions: Normal LV size and systolic function LVEF 59% Mild RV enlargement with normal RV function Biatrial enlargement Mild MR Mild to moderate TR with normal RVSP Findings Reason For Study: Atrial fibrillation. Left Ventricle: The left ventricular chamber size is normal. There is normal left ventricular systolic function. The diastolic filling pattern is indeterminate based on available data. The ejection fraction is calculated to be 59% using the Method of Disks. Left Atrium: The left atrium is mildly dilated. Right Ventricle: The right ventricle is mildly dilated. The right ventricular global systolic function is normal. Right Atrium: The right atrium is mildly dilated. Aortic Valve: The aortic valve is trileaflet. The aortic valve leaflets are mildly thickened. There is no hemodynamically significant stenosis. There is no evidence of aortic regurgitation. Mitral Valve: The mitral valve leaflets appear normal. The mitral valve leaflets are mildly thickened. There is no evidence of mitral stenosis. There is mild mitral regurgitation. Tricuspid Valve: The tricuspid valve leaflets are normal. There is no tricuspid stenosis. There is mild to moderate tricuspid regurgitation. The right ventricular systolic pressure is 33.6 mmHg. Pulmonic Valve: The pulmonic valve appears normal. There is no pulmonic stenosis. There is no evidence of pulmonic regurgitation. Pericardium: The pericardium appears normal. Aorta: The aorta appears normal. Venous: The inferior vena cava is dilated. There is a greater than 50% respiratory change in the inferior vena cava dimension. HR 54 BP 165/57 Measurements Chambers 2D Name Value Normal Range IVSd (2D) 1.29 cm none LVPWd (2D) 0.98 cm none IVS:LVPW ratio (2D) 1.32 ratio none LVIDd (2D) 4.37 cm none LVIDs (2D) 2.75 cm none LVIDd (2D) index 2.06 cm/m2 none LVIDs (2D) index 1.3 cm/m2 none LV FS (2D) 37.07 % none LV FS (Teichholz) (2D) 37.1 % none LV FS (cube) (2D) 37.1 % none LV EF (2D) 59 % (60 - 100) EF Teichholz (2D) 67.24 % none Ao root diameter (2D) 3 cm none Aortic root diameter (2D) inde1.41 cm/m2 none Volumes/Mass Name Value Normal Range LA ESV SP 4CH (MOD) 79.9 ml none LA ESV SP 2CH (MOD) 93 ml none LA ESV BP (MOD) 87.7 ml none LA ESV BP (MOD) index 41.34 ml/m2 none LV EDV SP 4CH (MOD) 88.2 ml none LV ESV SP 4CH (MOD) 34 ml none EF SP 4CH (MOD) 61.45 % none LV EDV SP 2CH (MOD) 81.5 ml none LV ESV SP 2CH (MOD) 34.7 ml none EF SP 2CH (MOD) 57.42 % none LV EDV BP 87.5 ml none LV ESV BP 36 ml none BP EF (MOD) 58.86 % none LV EDV BP index 41.25 ml/m2 none LV ESV BP index 16.97 ml/m2 none LV mass (2D) 174.19 g none LV mass (2D) index 82.11 g/m2 none Diastolic/Systolic Function Name Value Normal Range MV E-wave Vmax 1.17 m/sec none MV deceleration time 173 msec none LV E:e' septal ratio 11.8 ratio none LV E:e' lateral ratio 8.1 ratio none TAPSE 1.43 cm none Aortic Valve Name Value Normal Range AV Vmax 1.17 m/sec (1 - 1.7) AV VTI 30.2 cm none AV peak gradient 5.48 mmHg (Less Than 36) AV mean gradient 3 mmHg (Less Than 20) LVOT diameter 2.1 cm (1.7 - 2.5) LVOT Vmax 0.88 m/sec (0.7 - 1.1) LVOT VTI 21.6 cm none LVOT peak gradient 3 mmHg none LVOT mean gradient 2 mmHg none DOI (VTI) 0.72 ratio none DOI (Vmax) 0.75 ratio none SV LVOT 74.78 ml none CO LVOT 4.04 l/min none Cardiac index 1.9 l/min/m2 none RONALD (continuity Vmax) 2.59 cm2 none RONALD (continuity Vmax) index 1.22 cm2/m2 none RONALD (continuity VTI) 2.48 cm2 none RONALD (continuity VTI) index 1.17 cm2/m2 none Ascending Ao 3.3 cm none Mitral Valve Name Value Normal Range MV Vmax 1.31 m/sec (0.6 - 1.3) MV VTI 33.2 cm none MV peak gradient 6.86 mmHg none MV mean gradient 3 mmHg none MV PHT 120 msec none MR Vmax 4.74 m/sec none MR VTI 173 cm none MR volume (PISA) 17.41 ml none MR flow (PISA) 47.7 ml/sec none MR ERO 0.1 cm2 none MVA (PHT) 1.83 cm2 none MVA (continuity VTI) 2.25 cm2 none Tricuspid Valve Name Value Normal Range TR Vmax 2.53 m/sec none TR peak gradient 25.6 mmHg none RAP 8 mmHg none RVSP 33.6 mmHg none Pulmonic Valve/Qp:Qs Name Value Normal Range PV Vmax 1.29 m/sec (0.6 - 0.9) PV VTI 27.6 cm none PV peak gradient 6.66 mmHg none PV mean gradient 3 mmHg none Electronically Signed at 03/28/2019 08:51:21 by: Shwetha Carr M.D. [facility] Other 03-28-2019 Nuclear Report _ Patient: MARIA LUISA TIJERINA [facility] Rec#: [id number] (Age): 1940(78y) Height: Study Date: 03/28/2019 Weight: Room#: BSA: Type: Outpatient Loc: Sex: M _ Indications: -Abnormal ECG - Checklists: -Patient verbally identified self -Patient consent obtained in lab -Procedure verified and explained to patient -Medication Reconciliation completed. -Discharge instructions given Nuclear Cardiology Conclusion: Normal exercise myocardial perfusion . No inducible ischemia identified. Overall low-risk study based on SCAI criteria (Less Than 1% predicted annual cardiac mortality). Global left ventricular systolic function was normal, with an EF of 74%. Stress ECG Conclusion: Normal exercise stress ECG with no ECG changes consistent with ischemia. HR Response to stress: normal BP response to stress: normal The patient experienced no chest pain. The test was terminated due to fatigue. An adequate level of stress was achieved. Exercise Protocol: A Burgos treadmill score of 5 was achieved. Total Exercise Time The patient exercised for a total of 05:02 min using the Standard Mehrdad exercise protocol, achieving stage 2 and a max METs of 7. A Burgos treadmill score of 5 was achieved. Exercise functional capacity was good. Resting ECG A-Fib. Tolerated exercise fair. Denies CP with exertion. Baseline ECG: Atrial fibrillation. Normal ECG. Stress ECG : ST response to stress; unchanged from baseline ECG. Hemodynamics REST STRESS RECOVERY SBP 172 mmHg 177 mmHg 181 mmHg DBP 75 mmHg 51 mmHg 58 mmHg HR 70 bpm 153 bpm 85 bpm %MPHR 106 % Imaging Protocol: This was a gated SPECT myocardial perfusion imaging study. A one day rest-stress imaging protocol was followed using Tc-99m tetrofosmin ([employer]) injected intravenously. For the rest portion of the study, 8.6 mCi of the radiopharmaceutical was administered at 03/28/2019 07:30:00. Rest imaging was performed at 08:30:00. For the stress portion of the study, 24.8 mCi was administered at 03/28/2019 09:02:00. Stress imaging was performed at 09:30:00. Perfusion Interpretation: Perfusion at stress and rest conditions was normal. Wall Motion Interpretation: The patient's calculated post stress LVEF was 74%. The patient's end diastolic volume was 102ml. The patient's end systolic volume was 27ml. Gated imaging under post-stress conditions demonstrated normal wall motion. Nuclear Doctor Interpreted Study and Electronically signed at 03/28/2019 12:22:53 by: Shwetha Carr M.D. [facility], [facility] - 03/28/2019 12:24 PM EDT Nuclear Report _ Patient: MARIA LUISA TIJERINA Med Rec#: [id number] (Age): 1940(78y) Height: Study Date: 03/28/2019 Weight: Room#: BSA: Type: Outpatient Loc: Sex: M _ Indications: -Abnormal ECG - Checklists: -Patient verbally identified self -Patient consent obtained in lab -Procedure verified and explained to patient -Medication Reconciliation completed. -Discharge instructions given Nuclear Cardiology Conclusion: Normal exercise myocardial perfusion . No inducible ischemia identified. Overall low-risk study based on SCAI criteria (Less Than 1% predicted annual cardiac mortality). Global left ventricular systolic function was normal, with an EF of 74%. Stress ECG Conclusion: Normal exercise stress ECG with no ECG changes consistent with ischemia. HR Response to stress: normal BP response to stress: normal The patient experienced no chest pain. The test was terminated due to fatigue. An adequate level of stress was achieved. Exercise Protocol: A Burgos treadmill score of 5 was achieved. Total Exercise Time The patient exercised for a total of 05:02 min using the Standard Mehrdad exercise protocol, achieving stage 2 and a max METs of 7. A Burgos treadmill score of 5 was achieved. Exercise functional capacity was good. Resting ECG A-Fib. Tolerated exercise fair. Denies CP with exertion. Baseline ECG: Atrial fibrillation. Normal ECG. Stress ECG : ST response to stress; unchanged from baseline ECG. Hemodynamics REST STRESS RECOVERY SBP 172 mmHg 177 mmHg 181 mmHg DBP 75 mmHg 51 mmHg 58 mmHg HR 70 bpm 153 bpm 85 bpm %MPHR 106 % Imaging Protocol: This was a gated SPECT myocardial perfusion imaging study. A one day rest-stress imaging protocol was followed using Tc-99m tetrofosmin ([employer]) injected intravenously. For the rest portion of the study, 8.6 mCi of the radiopharmaceutical was administered at 03/28/2019 07:30:00. Rest imaging was performed at 08:30:00. For the stress portion of the study, 24.8 mCi was administered at 03/28/2019 09:02:00. Stress imaging was performed at 09:30:00. Perfusion Interpretation: Perfusion at stress and rest conditions was normal. Wall Motion Interpretation: The patient's calculated post stress LVEF was 74%. The patient's end diastolic volume was 102ml. The patient's end systolic volume was 27ml. Gated imaging under post-stress conditions demonstrated normal wall motion. Nuclear Doctor Interpreted Study and Electronically signed at 03/28/2019 12:22:53 by: Shwetha Carr M.D. [facility] ECG 12-LEADon 03-03-2019 Atrial Rate [facility] P Grady [facility] P-R Interval [facility] Q-T Interval [facility] Q-T Interval (corrected) [facility] QRS Duration [facility] QTC Calculation (Bezet) [facility] R Grady [facility] T Grady [facility] Ventricular Rate [facility] th No Panel Information [facility] Vital Signs Date Time Vital Sign Value Performing Clinician Facility 08-12-2024 23:30-0500 Diastolic blood pressure 63 mm[Hg] Shelton Jay DO Work Phone: [facility] 08-12-2024 23:30-0500 Heart rate 75 /min Shelton Jay DO Work Phone: [facility] 08-12-2024 23:30-0500 Respiratory rate 18 /min Shelton Jay DO Work Phone: [facility] 08-12-2024 23:30-0500 SaO2% (BldA) [Mass fraction] 91 % Shelton Jay DO Work Phone: [facility] 08-12-2024 23:30-0500 Systolic blood pressure 144 mm[Hg] Shelton Jay DO Work Phone: [facility] 08-12-2024 17:39-0500 Body height 180.3 cm Shelton Jay DO Work Phone: [facility] 08-12-2024 17:39-0500 Body mass index (BMI) [Ratio] 23.74 kg/m2 Shelton Jay DO Work Phone: [facility] 08-12-2024 17:39-0500 Body temperature 98.2 [degF] Shelton Jay DO Work Phone: [facility] 08-12-2024 17:39-0500 Body weight 77.2 kg Shelton Jay DO Work Phone: [facility] 09-03-2022 11:24-0500 Diastolic blood pressure 72 mm[Hg] Kev Wallace AOC DIRECTOR COMBAT OPERATIONS OFFICER Work Phone: [facility] 09-03-2022 11:24-0500 Heart rate 77 /min Kevbill Wallace AOC DIRECTOR COMBAT OPERATIONS OFFICER Work Phone: [facility] 09-03-2022 11:24-0500 Systolic blood pressure 177 mm[Hg] Kev Jackson AOC DIRECTOR COMBAT OPERATIONS OFFICER Work Phone: [facility] 09-03-2022 11:05-0500 Body height 182.9 cm Kevbill Wallace AOC DIRECTOR COMBAT OPERATIONS OFFICER Work Phone: [facility] 09-03-2022 11:05-0500 Body mass index (BMI) [Ratio] 24.55 kg/m2 Kevbill Wallace AOC DIRECTOR COMBAT OPERATIONS OFFICER Work Phone: [facility] 09-03-2022 11:05-0500 Body weight 82.1 kg Kev Wallace AOC DIRECTOR COMBAT OPERATIONS OFFICER Work Phone: [facility] 09-03-2022 11:05-0500 SaO2% (BldA) [Mass fraction] 99 % Kevbill Wallace AOC DIRECTOR COMBAT OPERATIONS OFFICER Work Phone: [facility] 06-11-2022 12:09-0500 Body temperature 97.7 [degF] Susan Butcher MD Work Phone: [facility] 06-11-2022 12:09-0500 Diastolic blood pressure 53 mm[Hg] Susan Butcher MD Work Phone: [facility] 06-11-2022 12:09-0500 Heart rate 58 /min Susan Butcher MD Work Phone: [facility] 06-11-2022 12:09-0500 Respiratory rate 16 /min Susan Butcher MD Work Phone: [facility] 06-11-2022 12:09-0500 SaO2% (BldA) [Mass fraction] 97 % Susan Butcher MD Work Phone: [facility] 06-11-2022 12:09-0500 Systolic blood pressure 140 mm[Hg] Susan Butcher MD Work Phone: [facility] 04-15-2022 07:57-0400 Respiratory rate 16 /min Deya Vasquez MD Work Phone: [facility] 04-15-2022 07:29-0400 Body temperature 97.5 [degF] Deya Vasquez MD Work Phone: [facility] 04-15-2022 07:29-0400 Diastolic blood pressure 55 mm[Hg] Deya Vasquez MD Work Phone: [facility] 04-15-2022 07:29-0400 Heart rate 53 /min Deya Vasquez MD Work Phone: [facility] 04-15-2022 07:29-0400 SaO2% (BldA) [Mass fraction] 98 % Deya Vasquez MD Work Phone: [facility] 04-15-2022 07:29-0400 Systolic blood pressure 135 mm[Hg] eDya Vasquez MD Work Phone: [facility] 04-07-2022 10:00-0400 Body mass index (BMI) [Ratio] 24.79 kg/m2 Deya Vasquez MD Work Phone: [facility] 04-07-2022 10:00-0400 Body weight 82.9 kg Deya Vasquez MD Work Phone: [facility] 04-06-2022 21:25-0400 Body height 182.9 cm Deya Vasquez MD Work Phone: [facility] 03-28-2019 09:48-0400 BP Diastolic 75 mm[Hg] Samina Lake [facility] 03-28-2019 09:48-0400 BP Systolic 172 mm[Hg] Samina Lake [facility] 03-28-2019 09:48-0400 Pulse (Heart Rate) 70 /min Samina Lake [facility] 03-03-2019 14:03-0400 BP Diastolic 57 mm[Hg] Samina Lake [facility] 03-03-2019 14:03-0400 BP Systolic 162 mm[Hg] Samina Lake [facility] 03-03-2019 14:03-0400 Height 182.9 cm Samina Lake [facility] 03-03-2019 14:03-0400 Pulse (Heart Rate) 88 /min Samina Lake [facility] 03-03-2019 [id number] Pulse Oximetry 98 % Samina Lake [facility] Encounters Encounter Date Encounter Type Care Provider Facility Start: 01-08-2025 ambulatory Walter Gallegos Facility :[facility] Start: 09-20-2024 ambulatory [place] Sandra Facility:[facility] Start: 09-04-2024 End: 09-04-2024 ambulatory [facility] Facility:[facility] Start: 08-18-2024 End: 09-07-2024 Evaluation and management of inpatient Walter Gallegos Facility:[facility] Start: 08-16-2024 End: 09-28-2024 Orders Only Chief Ophthalmic Technician Generic [facility] Executive Asst Start: 08-14-2024 End: 09-28-2024 Orders Only Chief Ophthalmic Technician Generic [facility] Executive [facility] Start: 08-13-2024 End: 08-18-2024 Evaluation and management of inpatient [facility] Start: 08-12-2024 End: 08-14-2024 ambulatory SHELTON JAY [facility] Start: 08-12-2024 End: 08-12-2024 Subsequent hospital visit by physician Marcello Colby [employer] [facility] Comment on above: Arrived Start: 08-12-2024 End: 08-12-2024 Emergency department patient visit Shelton Jay DO Work Phone: [facility] Emergency Medicine Comment on above: Closed fracture of m ultiple ribs of left side, initial encounter (Primary Dx); Pleural effusion Start: 04-24-2024 End: 04-24-2024 ambulatory TIFFANY TRIANA Facility:[facility] Start: 04-24-2024 End: 04-24-2024 Patient encounter procedure Tiffany Triana OD Work Phone: Optometry Comment on above: 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); Fuchs' corneal dystrophy of both eyes Start: 03-27-2024 End: 03-27-2024 ambulatory SELF Facility:[facility] Start: 03-27-2024 End: 03-27-2024 Patient encounter procedure Tiffany Triana OD Work Phone: Optometry Comment on above: Floaters, bilateral (Primary Dx); Corneal guttata of both eyes; Pseudophakia of both eyes Start: 03-01-2023 End: 03-01-2023 Patient encounter procedure Tiffany Triana OD Work Phone: Optometry Comment on above: Floaters, bilateral (Primary Dx); Corneal guttata of both eyes; Pseudophakia of both eyes; Myopia, bilateral; Regular astigmatism of both eyes Start: 09-03-2022 End: 09-07-2022 ambulatory KEV WALLACE [facility] Ambulatory Start: 09-03-2022 End: 09-03-2022 Office outpatient visit 15 minutes Kev Wallace AOC DIRECTOR COMBAT OPERATIONS OFFICER Work Phone: [facility] Comment on above: Atrial fibrillation, unspecified type (HCC) Start: 08-31-2022 Orders Only Daniel Cabrera RN [facility] Comment on above: Atrial fibrillation, unspecified type (HCC) (Primary Dx) Start: 06-06-2022 End: 06-11-2022 Emergency department patient visit Susan Butcher MD Work Phone: [facility] Med Surg Start: 05-18-2022 ambulatory WALTER HAAS [facility] Ambulatory Start: 04-20-2022 Documentation procedure Wong Wallace AOC DIRECTOR COMBAT OPERATIONS OFFICER Work Phone: [facility] Start: 04-17-2022 Orders Only Jose Khan RN [facility] Comment on above: Pancytopenia (HCC) ( Primary Dx) Start: 04-16-2022 ambulatory HANNY SU [facility] Ambulatory Start: 04-16-2022 Documentation procedure Hanny fall MA [facility] Start: 04-10-2022 Orders Only Daniel Cabrera RN [facility] Comment on above: Atrial fibrillation, unspecified type (HCC) (Primary Dx) Start: 04-06-2022 End: 04-15-2022 Evaluation and management of inpatient Deya Vasquez MD Work Phone: [facility] Intermediate Start: 01-19-2022 End: 01-19-2022 Patient encounter procedure [facility] Start: 01-12-2022 End: 01-12-2022 Patient encounter procedure Tiffany Triana OD Work Phone: Optometry Comment on above: Myopia, bilateral (P rimary Dx); Regular astigmatism of left eye Start: 12-31-2021 End: 12-31-2021 Patient encounter procedure [facility] Start: 07-10-2021 End: 07-10-2021 Clinical Support Sendy Rees Work Phone: [facility] Comment on above: Sensory hearing loss , bilateral (Primary Dx) Start: 08-27-2020 End: 08-27-2020 Orders Only Dwaine Ovidio Carballo Work Phone: [facility] Start: 04-05-2020 End: 04-05-2020 Clinical Support Sendy Jacobsen Work Phone: [facility] Comment on above: Sensory hearing loss , bilateral (Primary Dx) Start: 03-28-2019 End: 03-28-2019 Subsequent hospital visit by physician Samina Lake Work Phone: [facility] Comment on above: Arrived New onset a-fib (HCC ); Lower extremity edema Start: 03-03-2019 End: 03-03-2019 Office outpatient new 45 minutes Jes Funk Work Phone: [facility] Comment on above: Thrombocytopenia (HC C); New onset a-fib (HCC); Hypertension, unspecified type; Lower extremity edema Procedures Date Procedure Procedure Detail Performing Clinician Start: 08-16-2024 Ecg routine ecg w/least 12 lds w/i&r Chief Ophthalmic Technician Generic Start: 08-14-2024 Ecg routine ecg w/least 12 lds w/i&r Chief Ophthalmic Technician Generic Start: 08-12-2024 Ct thoracic spine w/o contrast material Rosi Lloyd MD Work Phone: Start: 08-12-2024 Assay of troponin quantitative Shelton Avilaersen DO Work Phone: Start: 08-12-2024 Comprehensive metabolic panel Shelton Avilaersen DO Work Phone: Start: 08-12-2024 Ethanol [Mass/volume] in Serum or Plasma Rosi Lloyd MD Work Phone: Start: 08-12-2024 Troponin I.cardiac panel - Serum or Plasma by High sensitivity method Shelton Avilaersen DO Work Phone: Start: 08-12-2024 Ct abdomen & pelvis w/contrast material Shelton Jay DO Work Phone: Start: 08-12-2024 Ct cervical spine w/o contrast material Shelton Jay DO Work Phone: Start: 08-12-2024 Ct head/brain w/o contrast material Shelton Jay DO Work Phone: Start: 08-12-2024 Urinalysis complete W Reflex Culture panel - Urine Shelton Avilaersen DO Work Phone: Start: 08-12-2024 Urnls dip stick/tablet reagent auto microscopy Shelton Avilaersen DO Work Phone: Start: 08-12-2024 Ecg routine ecg w/least 12 lds trcg only w/o i&r Shelton Jay DO Work Phone: Start: 03-27-2024 Computerized ophthalmic imaging retina Tiffany Triana OD Work Phone: Start: 03-01-2023 Computerized ophthalmic imaging retina Tiffany Triana OD Work Phone: Start: 09-03-2022 Ecg routine ecg w/least 12 lds w/i&r Kartik ePpper MD Work Phone: Start: 06-08-2022 Basic metabolic panel calcium total Carlos Alberto Tafoya MD Work Phone: Start: 06-07-2022 SCAN OTHER ORDERS Generic [facility] Start: 06-07-2022 Assay of magnesium Carlos Alberto Tafoya MD Work Phone: Start: 06-07-2022 Electrocardiogram Susan Butcher MD Work Phone: Start: 06-07-2022 Assay of lactate Susan Butcher MD Work Phone: Start: 06-07-2022 End: 06-07-2022 Radex elbow complete minimum 3 views Susan Butcher MD Work Phone: Start: 06-07-2022 Ct thorax w/o contrast material Susan Butcher MD Work Phone: Start: 06-07-2022 Ct cervical spine w/o contrast material Susan Butcher MD Work Phone: Start: 06-07-2022 Ct head/brain w/o contrast material Susan Butcher MD Work Phone: Start: 06-06-2022 Radiologic exam chest single view Susan Butcher MD Work Phone: Start: 06-06-2022 Ecg routine ecg w/least 12 lds w/i&r Susan Butcher MD Work Phone: Start: 06-06-2022 Blood ethanol measurement Susan hanson MD Work Phone: Start: 06-06-2022 End: 06-06-2022 Comprehensive metabolic panel Susan Butcher MD Work Phone: Start: 06-06-2022 BRICEÑO TOP Susan Butcher MD Work Phone: Start: 06-06-2022 Hepatic function panel Susan Butcher MD Work Phone: Start: 06-06-2022 LAVENDER TOP Susan Butcher MD Work Phone: Start: 06-06-2022 LIGHT BLUE TOP Susan Butcher MD Work Phone: Start: 06-06-2022 LIGHT GREEN TOP Susan Butcher MD Work Phone: Start: 06-06-2022 MINT GREEN TOP Suasn Butcher MD Work Phone: Start: 06-06-2022 PINK TOP Susan Butcher MD Work Phone: Start: 06-06-2022 RAINBOW DRAW Susan Butcher MD Work Phone: Start: 06-06-2022 URINE CONTAINER Susan Butcher MD Work Phone: Start: 06-06-2022 Urnls dip stick/tablet reagent auto microscopy Susan Butcher MD Work Phone: Start: 04-15-2022 Basic metabolic panel calcium total Connor Romero MD Work Phone: Start: 04-14-2022 Assay of osmolality urine Gila de la rosa MD Work Phone: Start: 04-14-2022 Basic metabolic panel calcium total Connor Romero MD Work Phone: Start: 04-13-2022 Basic metabolic panel calcium total Connor Romero MD Work Phone: Start: 04-12-2022 Ecg routine ecg w/least 12 lds trcg only w/o i&r Latosha Farias MD Work Phone: Start: 04-12-2022 End: 04-12-2022 Basic metabolic panel calcium total Connor Romero MD Work Phone: Start: 04-11-2022 Sodium serum plasma or whole blood Rosie Kaitlin Schwarz AOC DIRECTOR COMBAT OPERATIONS OFFICER Work Phone: Start: 04-11-2022 End: 04-11-2022 Sodium serum plasma or whole blood Rosie Kaitlin Schwarz AOC DIRECTOR COMBAT OPERATIONS OFFICER Work Phone: Start: 04-11-2022 Sodium serum plasma or whole blood Rosie Kaitlin Schwarz AOC DIRECTOR COMBAT OPERATIONS OFFICER Work Phone: Start: 04-11-2022 Basic metabolic panel calcium total Connor Romero MD Work Phone: Start: 04-10-2022 Sodium serum plasma or whole blood Rosie Kaitlin Schwarz AOC DIRECTOR COMBAT OPERATIONS OFFICER Work Phone: Start: 04-10-2022 Sodium serum plasma or whole blood Rosie Kaitlin Schwarz AOC DIRECTOR COMBAT OPERATIONS OFFICER Work Phone: Start: 04-10-2022 Sodium serum plasma or whole blood Rosie Kaitlin Schwarz AOC DIRECTOR COMBAT OPERATIONS OFFICER Work Phone: Start: 04-10-2022 Basic metabolic panel calcium total Connor Romero MD Work Phone: Start: 04-09-2022 Sodium serum plasma or whole blood Rosie Kaitlin Schwarz AOC DIRECTOR COMBAT OPERATIONS OFFICER Work Phone: Start: 04-09-2022 Sodium serum plasma or whole blood Rosie Kaitlin Schwarz AOC DIRECTOR COMBAT OPERATIONS OFFICER Work Phone: Start: 04-09-2022 Sodium serum plasma or whole blood Rosie Kaitlin Schwarz AOC DIRECTOR COMBAT OPERATIONS OFFICER Work Phone: Start: 04-09-2022 Ct thorax w/contrast material Meghan Stokes MD Work Phone: Start: 04-09-2022 Sodium serum plasma or whole blood Rosie Kaitlin Ramirezlins AOC DIRECTOR COMBAT OPERATIONS OFFICER Work Phone: Start: 04-09-2022 Basic metabolic panel calcium total Connor Romero MD Work Phone: Start: 04-08-2022 Sodium serum plasma or whole blood Rosie Kaitlin Mendozas AOC DIRECTOR COMBAT OPERATIONS OFFICER Work Phone: Start: 04-08-2022 Us abdominal real time w/image documentation Meghan Stokes MD Work Phone: Start: 04-08-2022 Immunofixj electrophoresis serum Meghan Stokes MD Work Phone: Start: 04-08-2022 End: 04-08-2022 Lactate dehydrogenase ldh Meghan stephens MD Work Phone: Start: 04-08-2022 Light chain level Meghan Crow Morrison Work Phone: Start: 04-08-2022 End: 04-08-2022 Basic metabolic panel calcium total Connor Romero MD Work Phone: Start: 04-08-2022 Sodium serum plasma or whole blood Rosie Kaitlinbladimir Mendozas AOC DIRECTOR COMBAT OPERATIONS OFFICER Work Phone: Start: 04-07-2022 Sodium serum plasma or whole blood Rosie Kaitlinbladimir RamirezSchwarz AOC DIRECTOR COMBAT OPERATIONS OFFICER Work Phone: Start: 04-07-2022 Sodium serum plasma or whole blood Rosie Kaitlin Schwarz AOC DIRECTOR COMBAT OPERATIONS OFFICER Work Phone: Start: 04-07-2022 Sodium serum plasma or whole blood Connor Romero MD Work Phone: Start: 04-07-2022 TTE w or wo fol wcon,Harshil Carr MD Work Phone: Start: 04-07-2022 Ecg routine ecg w/least 12 lds trcg only w/o i&r Shwetha Carr MD Work Phone: Start: 04-07-2022 End: 04-07-2022 Renal function panel Rosie Kaitlin Schwarz CN P Work Phone: Start: 04-07-2022 Electrocardiogram Provider Not In Syst em Start: 04-07-2022 Creatinine other source Connor ruano MD Work Phone: Start: 04-07-2022 Urnls dip stick/tablet reagent auto microscopy Deya Vasquez MD Work Phone: Start: 04-06-2022 Radiologic exam chest single view Deya Vasquez MD Work Phone: Start: 04-06-2022 End: 04-06-2022 Ct head/brain w/o contrast material Deya Vasquez MD Work Phone: Start: 04-06-2022 Ct cervical spine w/o contrast material Deya Vasquez MD Work Phone: Start: 04-06-2022 Ecg routine ecg w/least 12 lds w/i&r Deya Vasquez MD Work Phone: Start: 04-06-2022 Comprehensive metabolic panel Deya farfan MD Work Phone: Start: 04-06-2022 Hepatic function panel Connor davis MD Work Phone: Start: 04-06-2022 LAVENDER TOP Deya Vasquez MD Work Phone: Start: 04-06-2022 LIGHT BLUE TOP Deya Vasquez MD Work Phone: Start: 04-06-2022 MINT GREEN TOP Deya Vasquez MD Work Phone: Start: 04-06-2022 RAINBOW DRAW Deya Vasquez MD Work Phone: Start: 01-12-2022 Computerized ophthalmic imaging retina Tiffany T Denys OD Work Phone: Start: 03-28-2019 Radionuclide myocardial perfusion study Samina Lake Work Phone: Start: 03-28-2019 Echocardiography Samina Lake Work Phone: Start: 03-03-2019 12 lead ECG Samina Willis Work Phone: Plan of Treatment Date Care Activity Detail Author Start: 06-07-2032 DTaP/Tdap/Td Vaccines (3 - Td or Tdap) DTaP/Tdap/Td Vaccines (3 - Td or Tdap) [facility] Start: 06-07-2032 Tetanus vaccination Tetanus: Every 10yrs [facility] Start: 06-07-2032 Urine microalbumin profile DTaP,Tdap,Td Vaccine (3 - Td or Tdap) [facility] Start: 06-08-2025 Diabetes Screening Diabetes Screening [facility] Start: 01-11-2025 COVID-19 Vaccine ( season) COVID-19 Vaccine ( season) [facility] Start: 04-24-2024 End: 04-24-2024 Patient encounter procedure 04/24/2024 11:00 AM EDT Office Visit [facility] [address] [place] [address] Tiffany Triana, OD [address] [place] [address] 4 week cornea ck/ possible refraction/[facility] Comment on above: 4 week cornea ck/ possible refraction/[facility] Start: 04-02-2024 Covid-19 Vaccine () Covid-19 Vaccine () [facility] Start: 04-02-2024 Influenza vaccination Influenza Vaccine (#1) [facility] Start: 11-13-2023 Covid-19 Vaccine ( season) Covid-19 Vaccine () [facility] Start: 08-02-2023 Advance Directive Discussion Advance Directive Discussion [facility] Start: 04-02-2023 COVID-19 Vaccine ( season) COVID-19 Vaccine () [facility] Start: 04-02-2023 Influenza vaccination [facility] Start: 09-30-2022 Administration of herpes zoster vaccine Zoster Vaccines (2 of 2) [facility] Start: 09-04-2022 COVID-19 VACCINE (5 - Pfizer series) COVID-19 VACCINE (5 - Pfizer series) [facility] Start: 09-03-2022 End: 09-03-2022 Patient encounter procedure 09/03/2022 Office Visit Cardiology Kev Wallace CNP [address] [place] [address] [facility] Start: 08-18-2022 End: 08-18-2022 Patient encounter procedure 08/18/2022 Office Visit Cardiology Kev Wallace CNP [address] [place] [address] [facility] Start: 08-02-2022 ADVANCE DIRECTIVE DISCUSSION ADVANCE DIRECTIVE DISCUSSION [facility] Start: 08-02-2022 DEPRESSION ASSESSMENT DEPRESSION ASSESSMENT [facility] Start: 07-17-2022 End: 04-17-2023 Complete blood count with white cell differential, manual CBC and Differential Lab Routine Pancytopenia (HCC) Expected: 07/17/2022 (Approximate), Expires: 04/17/2023 [facility] Work Phone: Comment on above: Expected: 07/17/2022 (Approximate), Expi res: 04/17/2023 Start: 07-13-2022 End: 07-13-2022 Patient encounter procedure 07/13/2022 Office Visit Oncology Exten, Meghan Maria MD [address] [place] [id number] [facility] Start: 06-29-2022 COVID-19 Vaccine (4 - Booster for Pfizer series) COVID-19 Vaccine (4 - Booster for Pfizer series) [facility] Start: 04-02-2022 Influenza vaccination Sequential Influenza Vaccine (#1) [facility] Start: 10-09-2021 COVID-19 VACCINE (4 - Booster for Pfizer series) COVID-19 VACCINE (4 - Booster for Pfizer series) [facility] Start: 08-02-2021 ADVANCE DIRECTIVE DISCUSSION ADVANCE DIRECTIVE DISCUSSION [facility] Start: 04-02-2020 Influenza vaccination given Sequential Influenza Vaccine (#1) [facility] Start: 04-02-2019 Influenza vaccination given SEQUENTIAL INFLUENZA VACCINE (#1) [facility] Start: 03-28-2019 End: 03-28-2019 Appointment 03/28/2019 Appointment Cardiology Samina Lake MD [address] [place] [id number] [phone] [facility] Start: 2017 Respiratory Syncytial Virus Immunization: Risk, 60-74 Risk, or 75+ (1 - 1-dose 75+ series) Respiratory Syncytial Virus Immunization: Risk, 60-74 Risk, or 75+ (1 - 1-dose 75+ series) [facility] Start: 2017 RSV High Risk: (Elderly (60+) or Population) (1 - 1-dose 75+ series) RSV High Risk: (Elderly (60+) or Population) (1 - 1-dose 75+ series) [facility] Start: 2017 RSV Vaccine (1 - 1-dose 75+ series) RSV Vaccine (1 - 1-dose 75+ series) [facility] Start: 2007 Fall risk assessment Falls Risk Assessment [facility] Start: 2007 Pneumococcal vaccination PNEUMOCOCCAL VACCINE AGE 65+ (1 of 2 - PCV13) [facility] Start: 2007 Pneumococcal Vaccine: Age 65+ (1 of 1 - PPSV23) Pneumococcal Vaccine: Age 65+ (1 of 1 - PPSV23) [facility] Start: 2007 PNEUMOCOCCAL: 65+ (1 - PCV) PNEUMOCOCCAL: 65+ (1 - PCV) [facility] Start: 2002 Hepatitis B Vaccines (1 of 3 - Risk 3-dose series) Hepatitis B Vaccines (1 of 3 - Risk 3-dose series) [facility] Start: 2002 RSV Vaccine (1 - 1-dose 60+ series) RSV Vaccine (1 - 1-dose 60+ series) [facility] Start: 1992 Administration of herpes zoster vaccine Zoster Vaccines (1 of 2) [facility] Start: 1992 SHINGRIX VACCINE (1 of 2) SHINGRIX VACCINE (1 of 2) [facility] Start: 1987 DIABETES SCREEN DIABETES SCREEN [facility] Start: 1961 Hepatitis A Vaccines (1 of 2 - Risk 2-dose series) Hepatitis A Vaccines (1 of 2 - Risk 2-dose series) [facility] Start: 1961 Urine microalbumin profile DTAP,TDAP,TD (1 - Tdap) [facility] Start: 1960 Anxiety Screening Anxiety Screening [facility] Start: 1960 Depression Screening Depression Screening [facility] Start: 1960 Hepatitis C antibody, confirmatory test Hepatitis C Screening [facility] Start: 1960 Hepatitis C screening Hepatitis C Screening [facility] Start: 1958 COVID-19 Vaccine (1 of 2) COVID-19 Vaccine (1 of 2) [facility] Start: 1954 Adolescent depression screening assessment [facility] Start: 1954 Depression screening using PHQ-9 (Patient Health Questionnaire 9) score [facility] Start: 1948 Pneumococcal Vaccine: Age 65+ (1 - PCV) Pneumococcal Vaccine: Age 65+ (1 - PCV) [facility] Start: 1945 History and physical examination, annual for health maintenance Wellness Visit [facility] Start: 1945 Medicare Wellness Visit Medicare Wellness Visit [facility] Start: 1942 Annual wellness visit Welcome to Medicare Visit [facility] Start: 1942 Fall risk assessment Falls Risk Assessment [facility] Start: 1942 Lipid panel Lipid Panel [facility] Start: 1942 Tetanus vaccination [facility] End: 09-01-2023 12 lead ECG ECG 12 Lead ECG Routine Atrial fibrillation, unspecified type (HCC) 15 Occurrences starting 08/31/2022 until 09/01/2023 [facility] Work Phone: Comment on above: 15 Occurrences starting 08/31/2022 until 09/01/2023 End: 06-07-[address]22 CT [address] Spine Re[address] CT Lumbar Spine Reconstructed Imaging Routine One time imaging One time imaging for 1 Occurrences starting 06/07/2022 until 06/07/2022 [facility] Work Phone: Comment on above: One time imaging One time imaging for 1 Occurrences starting 06/07/2022 until 06/07/[address]22 CT Lumbar Spine Reconstructed CT Lumbar Spine Reconstructed Imaging [facility] 06/07/2022 2:24 AM EST [facility] End: 06-07-2022 CT Thoracic Spine Reconstructed CT Thoracic Spine Reconstructed Imaging [facility] One time imaging One time imaging for 1 Occurrences starting 06/07/2022 until 06/07/2022 [facility] Comment on above: One time imaging One time imaging for 1 Occurrences starting 06/07/2022 until 06/07/2022 CT Thoracic Spine Reconstructed CT Thoracic Spine Reconstructed Imaging [facility] 06/07/2022 2:25 AM EST [facility] End: 08-12-2024 ECG 12 Lead [facility] Work Phone: Comment on above: Once for 1 Occurrences starting 08/12/19 until 08/12/2024 End: 03-03-2020 Echocardiography Echocardiogram complete Echocardiography Routine New onset a-fib (HCC) Lower extremity edema 1 Occurrences starting 03/03/2019 until 03/03/2020 [facility] Comment on above: 1 Occurrences starting 03/03/2019 until 03/03/2020 End: 08-12-2024 Extra Urine Aj Tube [facility] Work Phone: Comment on above: Once for 1 Occurrences starting 08/12/19 25 until 08/12/2024 End: 03-03-2020 Radionuclide myocardial perfusion study NM Myocardial Perfusion Multiple SPECT Imaging Routine New onset a-fib (HCC) Lower extremity edema 1 Occurrences starting 03/03/2019 until 03/03/2020 [facility] Comment on above: 1 Occurrences starting 03/03/2019 until 03/03/2020 End: 08-12-2024 Urinalysis complete W Reflex Culture panel - Urine [facility] Service Area Work Phone: Comment on above: STAT (Lab) for 1 Occurrences starting until 08/12/2024 Immunizations Immunization Date Immunization Notes Care Provider [facility] 06-22-2023 influenza virus vaccine, unspecified formulation Tiffany Triana Work Phone: [facility] 06-08-2022 pneumococcal conj. 20-valent (PREVNAR 20) vaccine 0.5 mL Susan Butcher MD Work Phone: [facility] Work Phone: 06-07-2022 tetanus toxoid, reduced diphtheria toxoid, and acellular pertussis vaccine, adsorbed Susan Butcher MD Work Phone: [facility] 05-14-2021 influenza, seasonal, injectable [facility] Work Phone: 10-30-2020 Covid (Pfizer) [facility] Work Phone: 09-25-2020 Covid (Pfizer) [facility] Work Phone: Payers Date Payer Category Payer Self-pay [id number] 2024 Medicare ([employer]) [employer] G OLD CHOICE [id number] 2024 Medicare PPO [employer] MCR ADVAN TAGE CHOICE PPO [id number] 2024 Medicare [id number] 2021 Unknown [id number] 2018 Medicare MMO MANAGED MEDI CARE MMO MANAGED MEDICARE O [id number] 2018-Present [id number] 2018 Medicare MMO MANAGED MEDI CARE MMO MANAGED MEDICARE HMO [id number] 2018- [id number] 2018 Medicare [id number] 2017 Unknown EYE CARE PLAN OF AMNA EYEMED VISION [id number] 08/02/2017-Present [address] [facility] [address] Indemnity [id number] 1942 Unknown [id number] [id number] 1942 Unknown [id number]. [id number] 1942 Unknown [id number]. [id number] 1942 Unknown [id number]. [id number] 1942 Unknown [id number]. 2.1243 1942 Unknown [id number] [id number] Unknown [facility] AUTH REQUIR ED SEE NOTE [id number] Unknown VA AUTH REQUIR ED SEE NOTE [id number] Unknown [id number] [id number] Unknown [id number] [id number]. 2.462 Unknown [id number] [id number] Unknown [id number] [id number] Unknown [id number] [id number] Social History Date Type Detail Facility Start: 03-03-2019 End: 09-03-2022 Tobacco smoking status NHIS Former smoker [facility] Start: 03-03-2019 End: 06-06-2022 Tobacco Comment quit in his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 Appearance: alert; chronically ill appearing; in no acute distress HEENT: Head- normocephalic; Eyes- EOMI, sclera anicteric; Throat- mucous membranes moist Cardiovascular: regular rate and rhythm; normal S1, S2; no murmurs, rubs, clicks or gallops; peripheral edema absent Respiratory: lungs clear to auscultation; without wheezes, rales or rhonchi; decreased air entry on the base of the right side on nasal cannula Abdomen: soft, non-tender, non-distended Neurological: oriented x 3; normal speech; no focal findings or movement disorder noted Musculoskeletal: no significant deformity or tenderness to palpation Skin: normal coloration Psych: normal mood and affect AUTHENTICATED BY TRAN YOUNG, ON 08/18/2024 10:44:55 [facility] 08-17-2024 Note [facility] [place] PROGRESS NOTE Assessment and Plan Salvador Glass is a 84 y.o. male patient of Nanci Flores CNP with history of arrhythmia including atrial fibrillation and bradycardia, hypertension, leukopenia, psoriasis, and alcohol abuse presented to [facility] on 08/13/2024 with fall, syncope, traumatic rib fracture. Fall Syncope, Rhabdomyolysis Traumatic rib fracture Patient was found down by placement. He reported episode of syncope. Alcohol level, WNL urine drug screen pending Ultrasound Doppler of the carotids showed less than 50% stenosis in the right and left ICA echocardiogram On 08/14 showed LVEF of 69%, mild MR, TR, PHT of [address] scan was repeated on 08/15 due to decreased mentation, no abnormal intracranial findings Acute metabolic encephalopathy Possible delirium CT head on 08/16 reviewed did not show any acute intracranial event CT head 08/15 reviewed did not show any acute cranial hemorrhage Discontinued Zanaflex Neurology on board, appreciate recommended Continue PT OT Delirium precaution, multiple orientation Traumatic rib fracture Skin ecchymosis over left arm 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 Pain control. History of alcohol abuse. alcohol level. WNL Continue thiamine, folate, multivitamins Monitor for withdrawal, [facility] protocol S/p phenobarbital tapering, currently on CIWA protocol Hyponatremia Fever, rule out sepsis Possibly from chronic alcohol use Monitor for withdrawal from alcohol [facility] protocol S/p IVF, encourage p.o. intake Encourage ORS CXR reviewed showed mild improvement in the right pleural effusion, no consolidation Lactic acid 2.2, trended to 0.17 Procalcitonin 0.7 S/p Zosyn for today Right-sided large pleural effusion Unclear if this is trauma related or not. Repeated CXR on 08/14 morning, showed stable moderate right pleural effusion Thoracic spine infarction CT reported T2, T3, and T5 mild endplate infarction. neurosurgery On board, no surgical intervention or bracing indicated moment. Hypertension Atrial fibrillation Bradycardia Labile hypertension, hold amlodipine hydralazine, due to soft blood pressure with phenobarbital Rate is controlled, patient is not on any anticoagulation , Due to multiple falls Continue telemetry for now Psoriasis Leukopenia To monitor Asthma DuoNeb as needed Hypophosphatemia Repeat as needed Resolved acute medical issues Discharge Planning Medically Stable for Discharge Date: 08/18/2024 Patient requires continued hospitalization due to: PT OT evaluation, pain control, Discharge Location: SNF versus home Quality Measures DVT Prophylaxis: lovenox Win Catheter: absent Code Status full code Primary Contact Information Subjective Patient was seen and examined today morning at bedside. Overnight patient was more lethargic requiring VBG and CT scan, reviewed in the morning, WNL. In the morning patient was AO x 3, resting in NAD in the bed. Was able to answer my questions. Seen by neurologist today. Discussed with the patient at bedside treatment plan with able to answer all questions. Encourage the patient to work with physical therapy for possible placement Objective BP (!) 145/50 Pulse 63 Temp 97.9 degrees F (36.6 degrees C) (Oral) Resp 14 Ht 5' 11 Wt 77.1 kg (170 lb) SpO2 95% BMI 23.71 kg/m Physical Examination General Appearance: alert; chronically ill appearing; in no acute distress HEENT: Head- normocephalic; Eyes- EOMI, sclera anicteric; Throat- mucous membranes moist Cardiovascular: regular rate and rhythm; normal S1, S2; no murmurs, rubs, clicks or gallops; peripheral edema absent Respiratory: lungs clear to auscultation; without wheezes, rales or rhonchi; decreased air entry on the base of the right side on nasal cannula Abdomen: soft, non-tender, non-distended Neurological: oriented x 3; normal speech; no focal findings or movement disorder noted Musculoskeletal: no significant deformity or tenderness to palpation Skin: normal coloration Psych: normal mood and affect AUTHENTICATED BY TRAN YOUNG, ON 08/17/2024 13:41:45 [facility] 08-16-2024 Note [facility] PROGRESS NOTE Assessment and Plan Salvador Glass is a 84 y.o. male patient of Nanci Flores CNP with history of arrhythmia including atrial fibrillation and bradycardia, hypertension, leukopenia, psoriasis, and alcohol abuse presented to [facility] on 08/13/2024 with fall, syncope, traumatic rib fracture. Fall Syncope Rhabdomyolysis Traumatic rib fracture Patient was found down by placement. He reported episode of syncope. 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 Pain control. History of alcohol abuse. alcohol level. WNL Continue thiamine, folate, multivitamins Monitor for withdrawal, CIWA protocol S/p phenobarbital tapering, currently on CIWA protocol Hyponatremia Fever, rule out sepsis Possibly from chronic alcohol use Monitor for withdrawal from alcohol CIIL protocol Gentle IVF Encourage ORS CXR reviewed showed mild improvement in the right pleural effusion, no consolidation Lactic acid 2.2, trended to 0.17 Procalcitonin 0.7 Okay to continue Zosyn, will de-escalate soon Right-sided large pleural effusion Unclear if this is trauma related or not. Repeated CXR on 08/14 morning, showed stable moderate right pleural effusion Thoracic spine infarction CT reported T2, T3, and T5 mild endplate infarction. neurosurgery On board, no surgical intervention or bracing indicated moment. Hypertension Atrial fibrillation Bradycardia Labile hypertension, hold amlodipine hydralazine, due to soft blood pressure with phenobarbital Rate is controlled, patient is not on any anticoagulation , Due to multiple falls Continue telemetry for now Psoriasis Leukopenia To monitor Asthma DuoNeb as needed Hypophosphatemia Repeat as needed Resolved acute medical issues Discharge Planning Medically Stable for Discharge Date: 08/16/2024 Patient requires continued hospitalization due to: PT OT evaluation, pain control, full syncope workup Discharge Location: SNF versus home Quality Measures DVT Prophylaxis: lovenox Win Catheter: absent Code Status full code Primary Contact Information Subjective Patient was seen and examined today morning at bedside. Overnight patient is more lethargic, VBG WNL. During the morning patient was sitting in his chair AOx3, in NAD, 2 L NC. Looks more alert today. Encouraged p.o. intake and work with physical therapy today. Discussed with the daughter at bedside treatment plan with him and answered all her questions. Objective BP (!) 154/63 Pulse 71 Temp 98.3 degrees F (36.8 degrees C) (Oral) Resp 16 Ht 5' 11 Wt 77.1 kg (170 lb) SpO2 100% BMI 23.71 kg/m Physical Examination General Appearance: alert; chronically ill appearing; in no acute distress HEENT: Head- normocephalic; Eyes- EOMI, sclera anicteric; Throat- mucous membranes moist Cardiovascular: regular rate and rhythm; normal S1, S2; no murmurs, rubs, clicks or gallops; peripheral edema absent Respiratory: lungs clear to auscultation; without wheezes, rales or rhonchi; decreased air entry on the base of the right side on nasal cannula Abdomen: soft, non-tender, non-distended Neurological: oriented x 3; normal speech; no focal findings or movement disorder noted Musculoskeletal: no significant deformity or tenderness to palpation Skin: normal coloration Psych: normal mood and affect AUTHENTICATED BY TRAN YOUNG, ON 08/16/2024 12:23:46 [facility] 08-15-2024 Note TRAUMA ATTENDING NOT E Please link this note as an addendum to the Trauma Advanced Practice Provider (AIRAM) note with the same day of service. The patient was seen and examined by me, the attending trauma surgeon, on multidisciplinary rounds on the date of service listed above. I have reviewed Trauma AIRAM note with the relevant labs, studies, and valuation consultant notes. I have reviewed and agree with the documented history, exam, and plan of care, with the following additions and corrections: INJURIES: Left Rib 3-5, 7-9, 11 fx T2, T3, T5 mild superior endplate infractions Multiple skin tears Today: This morning developed likely Dts, treated by [facility] with ativan. Apparently his phenobarb taper had been stopped. He is now quite sedate. Continue IS, therapies, multimodal pain control including IV and po opiates prn. Carotids neg. ECHO reviewed. CXR personally reviewed, images stable, stable right pleural effusion. SubQ emphysema improved. Distension improved, +BM Trauma to sign off. Please call with questions/concerns. No further additions or corrections Oj Castro MD, FACS, [facility], [facility] Trauma and Acute Care Surgery AUTHENTICATED BY OJ CASTRO, ON 08/15/2024 11:39:58 [facility] 08-15-2024 Note [facility] DAILY PROGRESS NOTE MECHANISM: Fall INJURIES: Left Rib 3-5, 7-9, 11 fx T2, T3, T5 mild superior endplate infractions ASSESSMENT & PLAN/ACTIVE MEDICAL PROBLEMS: Multiple left-sided rib fractures, small pleural effusion CT CAP with left anterior lateral third rib fracture, lateral left fourth and fifth fracture, comminuted lateral posterior left seventh and eighth rib fracture, mildly displaced posterior aspect of ninth rib fracture, minimally displaced left 11th rib fracture Rib plating discussed, pt not a good candidate at this time -Aggressive pulmonary hygiene -Pain control -Therapies when able Vitamin D Deficiency, Osteoporosis Vit D 12 - 50,000 units weekly, follow up with PCP - osteoporosis consult Thoracic fractures CT T-spine with age-indeterminate mild superior endplate infractions of T2, T3, T5 Patient with pain on palpation -Neurosurgery consultation: NOM, follow up as needed -Pain management -Therapies when able Skin tears to left forearm Image uploaded to media tab 08/13 Cleanse with chlorhexidine and normal saline at [facility] Forearm Xr negative for fracture Tdap 06/2022 -Dress with bacitracin and nonadherent pads wrapped with Kerlix daily Alcoholism Etoh negative Drinks 8-10 Gallo and Cokes a day, last drink at 08/11 SBIRT completed Phenobarb taper and CIWA cancelled per primary - thiamine and folate -management per primary Acute Hypoxemic Respiratory Failure On NC, baseline room air 2/2 to rib fractures - wean as able - pulmonary hygiene Pancytopenia Secondary to traumatic injury Hemoglobin 9.4, Plt 98, WBC 2.61 -Monitor CBC -further workup per primary Hyponatremia NA 124 (130, 123) Asymptomatic Likely secondary to alcoholism -Monitor, further management per primary Large right pleural effusion As seen on CT CAP at [facility] -Management per primary Hypertension -Continue home meds, further management per primary Fall/found down/?Syncope CT head and neck with no acute findings, CAP T/L as above GCS 15 UA from OL negative for infection carotid duplex no acute findings -echo ordered -Further management per primary Elevated troponin troponin 28 at [facility], 23 here likely demand ischemia Cardiac arrhythmia Atrial fibrillation on monitor -cardiac monitoring INCIDENTAL FINDINGS: Cardiomegaly with biatrial predominance Splenomegaly Remote sternal plate fracture Small low-attenuation lesion involving interpolar cortex of the left kidney posteriorly measuring 8 mm SURGERIES/PROCEDURES: Date Operation/Procedure Provider Name INCIDENTAL FINDINGS: Cardiomegaly with biatrial predominance Splenomegaly Remote sternal plate fracture Small low-attenuation lesion involving interpolar cortex of the left kidney posteriorly measuring 8 mm RESOLVED PROBLEMS: Constipation DISPOSITION PLAN - per primary Follow up within: two weeks CHIEF COMPLAINT/ HPI / PFSHx / EVENTS OVER LAST 24HRS: Pt with hypertension, diaphoretic, and tremors on assessment. Primary RN present and requested he call [facility] to have CIWA added back to orders. REVIEW OF SYSTEMS: Other than the above items the remainder of the complete ROS is otherwise unchanged from admission. PHYSICAL EXAM: Temp: [97.9 degrees F (36.6 degrees C)-102.8 degrees F (39.3 degrees C)] 98.3 degrees F (36.8 degrees C) Heart Rate: [60-93] 86 Resp: [15-20] 15 BP: (110-184)/(52-74) 158/64 GENERAL: Appears age appropriate. No acute distress. NEUROLOGICAL: Alert and oriented X 3. Follows commands with extremities x4, equal strength. GCS = 15 CARDIOVASCULAR: 2+ pulses radial/DP/PT bilaterally. RESPIRATORY: Respiratory effort shallow but unlabored without use of accessory muscles. On NC. ABDOMINAL: Rounded, soft, nontender, minimally distended, normal bowel sounds. No guarding or peritoneal signs. MUSCULOSKELETAL: Extremities atraumatic without gross deformity x4. No clubbing, cyanosis or joint edema. Upper extremity tremors. SKIN:Skin warm and dry. Bilateral upper extremity ecchymosis. Anterior chest wall ecchymosis. Multiple skin tears to left forearm, dressing present. Intake/Output Summary (Last 24 hours) at 08/15/2024 0910 Last data filed at 08/15/2024 0540 Gross per 24 hour Intake 1980.04 ml Output 100 ml Net 1880.04 ml IMAGING [briefly note any results pertinent to today's evaluation]: AM CXR stable LABS Lab Results Component Value Date WBC 2.61 (L) 08/15/2024 HGB 9.4 (L) 08/15/2024 HCT 30.6 (L) 08/15/2024 MCV 80.7 08/15/2024 PLT 98 (L) 08/15/2024 RBC 3.79 (L) 08/15/2024 Lab Results Component Value Date GLUCOSE 123 (H) 08/15/2024 CALCIUM 8.7 08/15/2024 NA 124 (L) 08/15/2024 K 4.6 08/15/2024 CL 92 (L) 08/15/2024 BUN 20 08/15/2024 CREATININE 1.05 08/15/2024 Lab Results Co (more content not included)... [facility] 08-15-2024 Note [facility] [place] [facility] PROGRESS NOTE Assessment and Plan Salvador Glass is a 84 y.o. male patient of Nanci Flores CNP with history of arrhythmia including atrial fibrillation and bradycardia, hypertension, leukopenia, psoriasis, and alcohol abuse presented to [facility] on 08/13/2024 with fall, syncope, traumatic rib fracture. Fall Syncope Rhabdomyolysis Traumatic rib fracture Patient was found down by placement. He reported episode of syncope. 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 Pain control. History of alcohol abuse. alcohol level. WNL Continue thiamine, folate, multivitamins Monitor for withdrawal, CIWA protocol S/p phenobarbital tapering, currently on CIWA protocol Hyponatremia Fever, rule out sepsis Possibly from chronic alcohol use Monitor for withdrawal from alcohol CIWA protocol Gentle IVF Encourage ORS CXR reviewed showed mild improvement in the right pleural effusion, no consolidation Lactic acid 2.2, trended to 0.17 Procalcitonin 0.7 Okay to continue Zosyn, will de-escalate soon Right-sided large pleural effusion Unclear if this is trauma related or not. Repeated CXR on 08/14 morning, showed stable moderate right pleural effusion Thoracic spine infarction CT reported T2, T3, and T5 mild endplate infarction. neurosurgery On board, no surgical intervention or bracing indicated moment. Hypertension Atrial fibrillation Bradycardia Labile hypertension, hold amlodipine hydralazine, due to soft blood pressure with phenobarbital Rate is controlled, patient is not on any anticoagulation , Due to multiple falls Continue telemetry for now Psoriasis Leukopenia To monitor Asthma DuoNeb as needed Hypophosphatemia Repeat as needed Resolved acute medical issues Discharge Planning Medically Stable for Discharge Date: 08/16/2024 Patient requires continued hospitalization due to: PT OT evaluation, pain control, full syncope workup Discharge Location: SNF versus home Quality Measures DVT Prophylaxis: lovenox Win Catheter: absent Code Status full code Primary Contact Information Subjective Patient seen examined today morning at bedside. In the morning patient with pain, has some tremors, diaphoretic, CIWA was 8, was given Ativan and pain medication. Has one-time fever of 101 overnight. Sepsis workup started, broad-spectrum antibiotics started. CXR reviewed. Lactic acid procalcitonin. discussed with the daughter at bedside and I was able to answer all her questions I spent 50 minutes providing critical care services independent of procedures and other care providers. My time managing this critically ill patient included review of interval history, laboratories, radiology and consultation reports; performing a physical examination; discussing patient with the care team and managing life sustaining therapies to prevent imminent clinical deterioration. Objective BP (!) 158/64 Pulse 86 Temp 98.3 degrees F (36.8 degrees C) (Oral) Resp 16 Ht 5' 11 Wt 77.1 kg (170 lb) SpO2 94% BMI 23.71 kg/m Physical Examination General Appearance: alert; chronically ill appearing; in no acute distress HEENT: Head- normocephalic; Eyes- EOMI, sclera anicteric; Throat- mucous membranes moist Cardiovascular: regular rate and rhythm; normal S1, S2; no murmurs, rubs, clicks or gallops; peripheral edema absent Respiratory: lungs clear to auscultation; without wheezes, rales or rhonchi; decreased air entry on the base of the right side on nasal cannula Abdomen: soft, non-tender, non-distended Neurological: oriented x 3; normal speech; no focal findings or movement disorder noted Musculoskeletal: no significant deformity or tenderness to palpation Skin: normal coloration Psych: normal mood and affect AUTHENTICATED BY TRAN YOUNG, ON 08/15/2024 13:29:47 [facility] 08-14-2024 Note TRAUMA ATTENDING NOT E Please link this note as an addendum to the Trauma Advanced Practice Provider (AIRAM) note with the same day of service. The patient was seen and examined by me, the attending trauma surgeon, on multidisciplinary rounds on the date of service listed above. I have reviewed Trauma AIRAM note with the relevant labs, studies, and valuation consultant notes. I have reviewed and agree with the documented history, exam, and plan of care, with the following additions and corrections: INJURIES: Left Rib 3-5, 7-9, 11 fx T2, T3, T5 mild superior endplate infractions Multiple skin tears Today: Recommend IS, therapies, multimodal pain control including IV and po opiates prn. Dr. Mindy ribera for rib plating- likely not a good option due to chronic right effusion, not a good candidate for single lung ventilation, also pancytopenia is a a concern. Carotids neg. ECHO pend. Discussed with family. Continue zanaflex, add toradol. CXR personally reviewed, images stable. No further additions or corrections Oj Castro MD, FACS, FCCM, FASPEN Trauma and Acute Care Surgery AUTHENTICATED BY OJ CASTRO, ON 08/14/2024 11:39:17 [facility] 08-14-2024 Note [facility] [place] PROGRESS NOTE Assessment and Plan Salvador Glass is a 84 y.o. male patient of Nanci Flores [facility] with history of arrhythmia including atrial fibrillation and bradycardia, hypertension, leukopenia, psoriasis, and alcohol abuse presented to [facility] on 08/13/2024 with fall, syncope, traumatic rib fracture. Fall Syncope Rhabdomyolysis Traumatic rib fracture Patient was found down by placement. He reported episode of syncope. Alcohol level, WNL urine drug screen pending Ultrasound Doppler of the carotids showed less than 50% stenosis in the right and left ICA Follow-up echocardiogram. 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 Pain control. Right-sided large pleural effusion Unclear if this is trauma related or not. Repeated CXR on 08/14 morning, showed stable moderate right pleural effusion Thoracic spine infarction CT reported T2, T3, and T5 mild endplate infarction. neurosurgery On board, no surgical intervention or bracing indicated moment. History of alcohol abuse. alcohol level. WNL Continue thiamine, folate, multivitamins Preoperatively Phenobarbital tapering Monitor for withdrawal Hypertension Atrial fibrillation Bradycardia Labile hypertension, hold amlodipine hydralazine, due to soft blood pressure with phenobarbital Rate is controlled, patient is not on any anticoagulation , Due to multiple falls Continue telemetry for now Psoriasis Leukopenia To monitor Asthma DuoNeb as needed Hypophosphatemia Repeat as needed Resolved acute medical issues Discharge Planning Medically Stable for Discharge Date: 08/16/2024 Patient requires continued hospitalization due to: PT OT evaluation, pain control, full syncope workup Discharge Location: SNF versus home Quality Measures DVT Prophylaxis: lovenox Win Catheter: absent Code Status full code Primary Contact Information Subjective Patient seen and examined today morning at bedside. Overnight patient having some trouble with pain in his ribs, improved with pain medication. Encouraged the patient to use spirometry, discussed with the patient at bedside treatment plan I was able to answer all his questions. Also discussed with the daughter at bedside. Encourage the patient for PT OT today. Objective BP (!) 129/55 Pulse 61 Temp 98.9 degrees F (37.2 degrees C) (Oral) Resp 18 Ht 5' 11 Wt 77.1 kg (170 lb) SpO2 98% BMI 23.71 kg/m Physical Examination General Appearance: alert; chronically ill appearing; in no acute distress HEENT: Head- normocephalic; Eyes- EOMI, sclera anicteric; Throat- mucous membranes moist Cardiovascular: regular rate and rhythm; normal S1, S2; no murmurs, rubs, clicks or gallops; peripheral edema absent Respiratory: lungs clear to auscultation; without wheezes, rales or rhonchi; decreased air entry on the base of the right side on nasal cannula Abdomen: soft, non-tender, non-distended Neurological: oriented x 3; normal speech; no focal findings or movement disorder noted Musculoskeletal: no significant deformity or tenderness to palpation Skin: normal coloration Psych: normal mood and affect AUTHENTICATED BY TRAN YOUNG, ON 08/14/2024 12:23:19 [facility] 08-12-2024 Emergency department Note Emergency Medicine Transition of Care Note. I received Salvador Glass in signout from Dr. Jay. Please see the previous ED provider note for all HPI, PE and MDM up to the time of signout at 7 PM. This is in addition to the primary record. In brief Salvador Glass is an 84 y.o. male presenting for Chief Complaint Patient presents with Fall Patient states around 11 last night patient was in the bathroom when he fell. Lac noted to forehead. Patient states he passed out for an unknown amount of time, and when he woke up he was unable to get up so was on the ground all night. C/o left rib and arm pain. Denies blood thinners. Family called hand frame surgical elastic knitter dept to do a welfare check when they were not able to get a hold of him At the time of signout we were awaiting: Results of CT scan of the chest abdomen pelvis. CT chest abdomen pelvis w IV contrast Final Result CHEST 1. Acute fracture involving multiple left lower ribs and left 3rd rib as above with associated pleural thickening but no evidence for significant left pleural effusion/hemothorax or pneumothorax identified. 2. Large right pleural effusion with associated near complete consolidation of the right lower lobe but no endobronchial lesion is seen. Partial consolidation of the right middle and right upper lobe also seen. Mild left lung atelectasis/scarring or infiltrate. 3. Diffuse wall calcification of the aorta and coronary arteries. No aortic aneurysm or dissection. 4. Cardiomegaly with biatrial predominance. Recommend clinical correlation and follow-up. ABDOMEN - PELVIS 1. No CT evidence for acute intra-abdominal or intrapelvic injury. 2. Mild splenomegaly but no focal lesions. No signs of splenic vein thrombosis. 3. Small bowel ileus. Early signs of bowel obstruction not entirely excluded. Recommend clinical correlation and follow-up to document resolution. 4. Additional detailed nonacute findings as above. SUPPLEMENTAL INFORMATION: Notifi message was left for SHELTON JAY regarding this exam by Dr. Mcfadden on 08/12/2024 at approximately 19:04 hours. MACRO: None Signed by: Lori Mcfadden 08/12/2024 7:04 PM Dictation workstation: [id number] CT cervical spine wo IV contrast Final Result 1. No evidence for an acute fracture or subluxation of the cervical spine. 2. Calcified plaques within bilateral carotid bulbs. Recommend clinical correlation. MACRO: None Signed by: Lori Mcfadden 08/12/2024 6:45 PM Dictation workstation: [id number] CT head wo IV contrast Final Result No evidence of acute cortical infarct or intracranial hemorrhage. If there is persistent clinical concern for acute cortical infarction, MRI with diffusion-weighted images is a better means for further evaluation as clinically warranted. MACRO: None Signed by: Lori Mcfadden 08/12/2024 6:44 PM Dictation workstation: [id number] CT thoracic spine wo IV contrast (Results Pending) CT lumbar spine wo IV contrast (Results Pending) Diagnoses as of 08/12/241939 Closed fracture of multiple ribs of left side, initial encounter Pleural effusion Medical Decision Making Patient was checked out to me pending the results of the CT chest abdomen pelvis which demonstrated multiple rib fractures on the left side of 3, 4, 5, 7, 8, 9, 11. And is splinting but otherwise breathing fairly well. O2 saturation is currently 92% on room air. CT also demonstrated a large right-sided pleural effusion. There is no sign of pneumohemothorax. CPK is elevated but only slightly, less than expected at 371. Patient would benefit from an overnight stay at a trauma facility. They have elected to go to [facility]. Will order reconstructions of the thoracic and lumbar spine. Accepting physician is Dr. Monsalve. DDx: Rib fracture, multiple rib fractures, C-spine fracture or dislocation, rhabdomyolysis Final diagnoses: [S22.42XA] Closed fracture of multiple ribs of left side, initial encounter [J90] Pleural effusion Procedure Procedures MD Rosi Perez MD 08/12/241939 documented in this encounter [facility] Work Phone: 08-12-2024 Physician Emergency department Note Emergency Medicine Transition of Care Note. I received Salvador Glass in signout from Dr. Jay. Please see the previous ED provider note for all HPI, PE and MDM up to the time of signout at 7 PM. This is in addition to the primary record. In brief Salvador Glass is an 84 y.o. male presenting for Chief Complaint Patient presents with Fall Patient states around 11 last night patient was in the bathroom when he fell. Lac noted to forehead. Patient states he passed out for an unknown amount of time, and when he woke up he was unable to get up so was on the ground all night. C/o left rib and arm pain. Denies blood thinners. Family called dept to do a welfare check when they were not able to get a hold of him At the time of signout we were awaiting: Results of CT scan of the chest abdomen pelvis. CT chest abdomen pelvis w IV contrast Final Result CHEST 1. Acute fracture involving multiple left lower ribs and left 3rd rib as above with associated pleural thickening but no evidence for significant left pleural effusion/hemothorax or pneumothorax identified. 2. Large right pleural effusion with associated near complete consolidation of the right lower lobe but no endobronchial lesion is seen. Partial consolidation of the right middle and right upper lobe also seen. Mild left lung atelectasis/scarring or infiltrate. 3. Diffuse wall calcification of the aorta and coronary arteries. No aortic aneurysm or dissection. 4. Cardiomegaly with biatrial predominance. Recommend clinical correlation and follow-up. ABDOMEN - PELVIS 1. No CT evidence for acute intra-abdominal or intrapelvic injury. 2. Mild splenomegaly but no focal lesions. No signs of splenic vein thrombosis. 3. Small bowel ileus. Early signs of bowel obstruction not entirely excluded. Recommend clinical correlation and follow-up to document resolution. 4. Additional detailed nonacute findings as above. SUPPLEMENTAL INFORMATION: Notifi message was left for SHELTON JAY regarding this exam by Dr. Mcfadden on 08/12/2024 at approximately 19:04 hours. MACRO: None Signed by: Lori Mcfadden 08/12/2024 7:04 PM Dictation workstation: [id number] CT cervical spine wo IV contrast Final Result 1. No evidence for an acute fracture or subluxation of the cervical spine. 2. Calcified plaques within bilateral carotid bulbs. Recommend clinical correlation. MACRO: None Signed by: Lori Mcfadden 08/12/2024 6:45 PM Dictation workstation: [id number] CT head wo IV contrast Final Result No evidence of acute cortical infarct or intracranial hemorrhage. If there is persistent clinical concern for acute cortical infarction, MRI with diffusion-weighted images is a better means for further evaluation as clinically warranted. MACRO: None Signed by: Lori Mcfadden 08/12/2024 6:44 PM Dictation workstation: [id number] CT thoracic spine wo IV contrast (Results Pending) CT lumbar spine wo IV contrast (Results Pending) Diagnoses as of 08/12/241939 Closed fracture of multiple ribs of left side, initial encounter Pleural effusion Medical Decision Making Patient was checked out to me pending the results of the CT chest abdomen pelvis which demonstrated multiple rib fractures on the left side of 3, 4, 5, 7, 8, 9, 11. And is splinting but otherwise breathing fairly well. O2 saturation is currently 92% on room air. CT also demonstrated a large right-sided pleural effusion. There is no sign of pneumohemothorax. CPK is elevated but only slightly, less than expected at 371. Patient would benefit from an overnight stay at a trauma facility. They have elected to go to [facility]. Will order reconstructions of the thoracic and lumbar spine. Accepting physician is Dr. Monsalve. DDx: Rib fracture, multiple rib fractures, C-spine fracture or dislocation, rhabdomyolysis Final diagnoses: [S22.42XA] Closed fracture of multiple ribs of left side, initial encounter [J90] Pleural effusion Procedure Procedures MD Rosi Perez MD 08/12/241939 [facility] Work Phone: 04-24-2024 Instructions Tiffany Triana OD - 04/24/2024 11:49 AM EDT ASSESSMENT/PLAN: 1. 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 2. 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 Recommended follow up in one year. documented in this encounter [facility] 04-24-2024 Note HNO ID: [id number] Author: TIFFANY TRIANA OD Service: ? Author Type: [employer]MER CH[employer] CAREGIVER Type: Progress Notes Filed: 04/24/2024 11:50 Note Text: ASSESSMENT/PLAN: 1. 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 2. 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 Recommended follow up in one year. Tiffany Triana, OD I have confirmed and edited as necessary the relevant ophthalmic history, ROS, and the neuro exam findings as obtained by others. [facility] 04-24-2024 History of Present illness Narrative ASSESSMENT/PLAN: 1. 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 2. 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 Recommended follow up in one year. Tiffany Triana, OD I have confirmed and edited as necessary the relevant ophthalmic history, ROS, and the neuro exam findings as obtained by others. documented in this encounter [facility] 03-27-2024 Instructions Tiffany Triana OD - 03/27/2024 12:22 PM EDT ASSESSMENT/PLAN: 1. Floaters, bilateral - ICD9: 379.24, ICD10: H43.393 (primary diagnosis) Vitreal floaters stable both eyes. Retinas flat and intact with no apparent retinal tear or traction. Discussed symptoms of retinal tear/detachment and if seen patient will return to clinic without delay. 2. 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 Prescription was sent in at this visit. Current Ophthalmic Meds sodium chloride (RENEE 128) 5 % ophthalmic solution Use 1 Drop in both eyes daily at bedtime. , 3. Pseudophakia of both eyes - ICD9: V43.1, ICD10: Z96.1 Posterior chamber intraocular lenses are well positioned and clear. Return in 3-4 weeks for corneal follow up documented in this encounter [facility] 03-27-2024 Note Date of Procedure 03/27/2024. Auto B[employer] Straight[employer] Information Management Professor: salome. Start time: 12:12 PM. Interpretation Right Eye Normal foveal contour. Left Eye Normal foveal contour. [facility] 03-27-2024 Note HNO ID: [id number] Author: TIFFANY TRIANA OD Service: ? Author Type: [employer] CHILD CAREGIVER Type: Progress Notes Filed: 03/27/2024 12:23 Note Text: ASSESSMENT/PLAN: 1. Floaters, bilateral - ICD9: 379.24, ICD10: H43.393 (primary diagnosis) Vitreal floaters stable both eyes. Retinas flat and intact with no apparent retinal tear or traction. Discussed symptoms of retinal tear/detachment and if seen patient will return to clinic without delay. 2. 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 Prescription was sent in at this visit. Current Ophthalmic Meds sodium chloride (RENEE 128) 5 % ophthalmic solution Use 1 Drop in both eyes daily at bedtime. , 3. Pseudophakia of both eyes - ICD9: V43.1, ICD10: Z96.1 Posterior chamber intraocular lenses are well positioned and clear. Return in 3-4 weeks for corneal follow up Tiffany Triana, OD I have confirmed and edited as necessary the relevant ophthalmic history, ROS, and the neuro exam findings as obtained by others. [facility] 03-27-2024 History of Present illness Narrative ASSESSMENT/PLAN: 1. Floaters, bilateral - ICD9: 379.24, ICD10: H43.393 (primary diagnosis) Vitreal floaters stable both eyes. Retinas flat and intact with no apparent retinal tear or traction. Discussed symptoms of retinal tear/detachment and if seen patient will return to clinic without delay. 2. 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 Prescription was sent in at this visit. Current Ophthalmic Meds sodium chloride (RENEE 128) 5 % ophthalmic solution Use 1 Drop in both eyes daily at bedtime. , 3. Pseudophakia of both eyes - ICD9: V43.1, ICD10: Z96.1 Posterior chamber intraocular lenses are well positioned and clear. Return in 3-4 weeks for corneal follow up Tiffany Triana, OD I have confirmed and edited as necessary the relevant ophthalmic history, ROS, and the neuro exam findings as obtained by others. documented in this encounter [facility] 03-01-2023 Instructions Tiffany Triana, OD - 03/01/2023 11:37 AM EDT ASSESSMENT/PLAN: 1. Floaters, bilateral - ICD9: 379.24, ICD10: H43.393 (primary diagnosis) Vitreal floaters stable both eyes. Retinas flat and intact with no apparent retinal tear or traction. Discussed symptoms of retinal tear/detachment and if seen patient will return to clinic without delay. 2. 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 3. Pseudophakia of both eyes - ICD9: V43.1, ICD10: Z96.1 Posterior chamber intraocular lenses are well positioned and clear. 4. Myopia, bilateral - ICD9: 367.1, ICD10: H52.13 5. Regular astigmatism of both eyes - ICD9: 367.21, ICD10: H52.223 Continue to wear his glasses with the optional update. Recommended yearly exams. documented in this encounter [facility] 03-01-2023 History of Present illness Narrative ASSESSMENT/PLAN: 1. Floaters, bilateral - ICD9: 379.24, ICD10: H43.393 (primary diagnosis) Vitreal floaters stable both eyes. Retinas flat and intact with no apparent retinal tear or traction. Discussed symptoms of retinal tear/detachment and if seen patient will return to clinic without delay. 2. 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 3. Pseudophakia of both eyes - ICD9: V43.1, ICD10: Z96.1 Posterior chamber intraocular lenses are well positioned and clear. 4. Myopia, bilateral - ICD9: 367.1, ICD10: H52.13 5. Regular astigmatism of both eyes - ICD9: 367.21, ICD10: H52.223 Continue to wear his glasses with the optional update. Recommended yearly exams. Tiffany Triana, OD I have confirmed and edited as necessary the relevant ophthalmic history, ROS, and the neuro exam findings as obtained by others. documented in this encounter [facility] 09-03-2022 Instructions Daniel Cabrera RN - 09/03/2022 11:40 AM EST It was our pleasure to see you in EP Clinic today. Please contact ZANA Sanchez at [phone] if you have questions, concerns, or need prescription refills before your next appointment. documented in this encounter [facility] 09-03-2022 History of Present illness Narrative Heart & Vascular Clinic Note [facility] Visit Date: 09/03/2022 Patient Name: Salvador Glass : 1940 Reason for Visit: Follow-up (4 mo review VAL/Fib and pause/ ) Salvador Glass is a 82 y.o. male who presents today for follow up. He was hospitalized April 2022 s\p syncope and facial trauma. He has a history of chronic AF, refused OAC in the past. During his hospital admission, we discussed pursuing watchman and oral anticoagulation, patient declined both. He was noted to have numerous pauses during his admission, however all of them were < 5 seconds of duration. AV node blocking medications were discontinued. He was sent home with a 30 day event monitor, which we will review today. His hospital stay was lengthened due to hyponatremia, pantocytopenia. Today the patient is doing well, he denies chest pain shortness of breath or palpitations. He denies recent falls, he has not fallen since his hospital admission. He denies dizziness or feelings of presyncope. He still adamantly declines oral anticoagulation. Current rate controlling medication/Antiarrhythmic: None Current oral anticoagulation: ASA 81 mg daily- [id number] Score: 3 EKG Atrial fibrillation heart rate 66 bpm, QRS 112 ms, QTc 419 ms.: Echo 04/2022: Summary 1. Left ventricular systolic function is normal with an ejection fraction by Biplane Method of Discs of 60 %. 2. Indeterminate diastolic function. 3. Right ventricle is moderately enlarged with normal systolic function. 4. There is moderate tricuspid valve regurgitation. 5. There is significant pulmonary hypertension, estimated right ventricle systolic pressure is 71 mmHg assuming a right atrial pressure of 15 mmHg. VAL REPORT: 04/17/2022 TO 2022 INDICATIONS: ATRIAL FIBRILLATION 30-day event monitor Results General Max heart rate: 132 bpm Min heart rate: 45 bpm at 1:20 AM Average heart rate: 68 bpm Conduction System/Pauses Reports of multiple pauses however in the setting of atrial fibrillation this is just variable AV node conduction, longest 4.3 seconds occurring at 12:43 AM Atrial I have personally reviewed the strips, patient is in atrial fibrillation 100% of the time Ventricular Rare ventricular ectopy, total burden less than 1% 1 7 beat run of ventricular tachycardia approximately 150 bpm Patient Events No patient reported events Summary 100% atrial fibrillation, average rate 68 bpm 1 7 beat run of ventricular tachycardia, asymptomatic SPECT 03/2019: Nuclear Cardiology Conclusion: Normal exercise myocardial perfusion . No inducible ischemia identified. Overall low-risk study based on SCAI criteria (Less Than 1% predicted annual cardiac mortality). Global left ventricular systolic function was normal, with an EF of 74%. Histories Past Medical History: Diagnosis Date Arrhythmia A Fib Bradycardia Hypertension Leukopenia Mild anemia Psoriasis Renal failure History reviewed. No pertinent surgical history. Family History Problem Relation Age of Onset Emphysema Mother Diabetes Father Asthma Father Social History Socioeconomic History Marital status: Tobacco Use Smoking status: Former Types: Cigarettes Quit date: 1984 Years since quittin.1 Smokeless tobacco: Never Tobacco comments: quit in his 40s Vaping Use Vaping Use: Never used Substance and Sexual Activity Alcohol use: Yes Comment: 4-6 RUM&COKE A DAY Drug use: Never Allergies: Patient has no known allergies. Patient's Medications New Prescriptions No medications on file Previous Medications AMLODIPINE (NORVASC) 5 MG TABLET Take 1 (one) tablet (5 mg total) by mouth daily . ASPIRIN 81 MG EC TABLET Take 1 (one) tablet (81 mg total) by mouth as needed . B COMPLEX VITAMINS CAPSULE Take 1 (one) capsule by mouth daily . CALCIUM CARBONATE 168 MG CALCIUM (420 MG) CHEW Chew and Swallow daily as needed . CLOBETASOL (TEMOVATE) 0.05 % SCALP SOLUTION Apply topically daily Apply thin film onto dry scalp affected areas only. Leave in place for 15 min before lathering and rinsing. . FOLIC ACID (FOLVITE) 1 MG TABLET Take 1 (one) tablet (1 mg total) by mouth daily . [id number]-[id number]-EJUAH, WH (CETAPHIL) CREA Apply topically . HYDRALAZINE (APRESOLINE) 50 MG TABLET Take 0.5 (one-half) tablet (25 mg total) by mouth 3 (three) times a day . HYDROCORTISONE 1 % CREAM Apply topically 2 (two) times a day . KETOCONAZOLE (NIZORAL) 2 % CREAM APPLY CREAM TOPICALLY TO AFFECTED AREA TWICE DAILY PANTOPRAZOLE (PROTONIX) 40 MG TABLET Take 1 (one) tablet (40 mg total) by mouth daily . TRIAMCINOLONE (KENALOG) 0.1 % CREAM Apply topically 2 (two) times a day Reasons: Psoriasis of Scalp. Modified Medications No medications on file Discontinued Medications THIAMINE 100 MG TABLET Take 1 (one) tablet (100 mg total) by mouth daily . Allergies reviewed/updated Review of Systems All system(s) were reviewed. Pertinent positive and negative findings are noted in the HPI. All system negative unless otherwise noted in the HPI BP (!) 177/72 (BP Location: Left arm, Patient Position: Sitting) Pulse 77 Ht 6' Wt 82.1 kg (181 lb) SpO2 99% BMI 24.55 kg/m Pulse Readings from Last 3 Encounters: 09/03/22 77 06/11/22 (!) 58 04/15/22 (!) 53 BP Readings from Last 3 Encounters: 09/03/22 (!) 177/72 06/11/22 (!) 140/53 04/15/22 (!) 135/55 Wt Readings from Last 3 Encounters: 09/03/22 82.1 kg (181 lb) 04/07/22 82.9 kg (182 lb 12.2 oz) PHYSICAL EXAM: Constitutional Alert and oriented X3 in no acute distress. Head: normocephalic. Neck: No masses noted HEENT Anicteric Heart:. Normal Intensity S1 and S2. No murmurs. Lungs: Clear to auscultation. Good air movement. No crackles noted. Abdomen is soft and nontender. Extremities: Extremities are warm. No peripheral edema. Skin: warm, dry, intact Neuro: nonfocal Psych not suicidal or homicidal , pleasant, cooperative LABS: Lab Results Component Value Date GLUCOSE 85 06/08/2022 CALCIUM 8.3 (L) 06/08/2022 NA 131 (L) 06/08/2022 K 4.0 06/08/2022 CL 99 06/08/2022 BUN 7 (L) 06/08/2022 CREATININE 0.52 (L) 06/08/2022 EGFR 102 06/08/2022 Lab Results Component Value Date MG 1.7 06/08/2022 Lab Results Component Value Date INR 1.2 (H) 06/06/2022 INR 1.2 (H) 04/07/2022 PROTIME 15.0 (H) 06/06/2022 PROTIME 15.2 (H) 04/07/2022 Imaging: I independently reviewed the EKG and agree with the interpretation(s) with the following comments. ECG 12 Lead Final Result by Kev Wallace CNP (09/03/2022 1133) Echocardiogram complete w contrast Final Result by Jane Cosby MD (04/07/2022 1240) Echocardiogram complete Final Result by Shwetha Carr MD (03/28/2019 0851) ASSESSMENT: Salvador Glass is a 82 y.o. male with: +Persistent atrial fibrillation Not on OAC, patient declines. Patient declined watchman. [id number] Score: 3 (Age>75) +Pauses while in atrial fibrillation, < 5 seconds. Asymptomatic. Not on AV node blocking medications. +Falls and syncopal episodes +Pancytopenia +Hyponatremia +60% LVEF +Moderately enlarged RV +Pulmonary HTN +No known CAD, normal SPECT 03/2019 +Cirrhosis PLAN: Event monitor results reviewed- patient with 100% AF burden. Pauses noted, longest lasting 4.3 seconds during sleep hours. Continue holding AV node blocking medications. We did discuss need for OAC to prevent stroke. Patient continues to decline anticoagulation. We discussed his increased risk of stroke with afib and not taking oral anticoagulation, he continues to decline. We also discussed pursuing watchman due to history of falls and bleeding risk. Patient inquired about whether he would need to take anticoagulation following watchman device. I shared with him he would need to take OAC x 2-3 months following watchman. Patient declines. Will continue to follow with patient on an annual basis to ensure rate control. Patient's HR in the 60s today. Patient is hypertensive- states he has white coat syndrome. States he checks his BP at home and runs 120s-130s systolic. No changes made today. Follow up with EP in 1 year- sooner if needed. documented in this encounter [facility] 06-11-2022 Note Formatting of this n ote might be different from the original. Patient discharged home with home healthcare. Transport home via patient's daughter. Peripheral IV and tele monitoring removed by student nurse and instructor. All personal belongings are packed up by patient's daughter. Discharge information reviewed with patient. All questions addressed at this time. [facility] 06-11-2022 Hospital course Narrative [facility] [place] DISCHARGE SUMMARY -- [facility] Salvador Glass Admitted: 06/06/2022 Discharge Date: 06/11/22 PCP Handoff Recommended Outpatient Testing Discussed with daughter the need for 24/7 supervision given alcohol abuse and multiple falls. She showed understanding Results Pending At Discharge None Clinical Summary Salvador Glass is a 82 y.o. male patient of Walter Munguia MD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 Dressing: Stand by assist Lower Body Dressing: Moderate assist Toileting: Contact guard assist Functional Mobility: Stand by assist (FWW, gait belt) Bed Mobility Rolling: Modified independent Supine to Sit: Modified independent Sit to Supine: Modified independent Software Engineer: bedrails Functional Transfers Sit to Stand: Minimal assist Bed to Chair Transfers: Contact guard assist Software Engineer: wheeled walker (gait belt) Additional Assessment Details All activities completed in preparation for discharge. Patient educated on role of OT and importance of OOB/EOB activities during hospital stay. Patient verbalized understanding. He declined sitting up in a chair this date despite encouragement. Patient declined the need for further therapy in acute setting or at home. OT will sign off per patient request. Please reconsult if needs change. Home Living Obtained Home Living and PLOF info from: Patient Lives With: Alone Type of Home: House Home Layout: One level Steps to enter home: Yes Rails to enter home: 1 rail Number of stairs to enter home: 3 Bathroom Shower/Tub: Tub/shower unit, Walk-in shower (Patient reports he typically uses tub/shower) Bathroom Toilet: Standard Bathroom Equipment: Toilet seat director of safety, Shower chair, Grab bars in shower Mobility Equipment: Cane, Wheeled walker Additional Objective Details - Home Living: Patient reports he uses no AD for functional mobility at baseline. Prior Level of Function Level of [place] - Transfers/Ambulation/Mobility: Independent with functional transfers, Independent with household ambulation, Independent with community ambulation Level of [place] - ADLs: Independent Level of [place] - Homemaking: Independent Driving: Patient drives Vocational: Retired Past Medical History: Diagnosis Date Arrhythmia A Fib Bradycardia Hypertension Leukopenia Mild anemia Psoriasis Renal failure History reviewed. No pertinent surgical history. For complete objective data, detailed plan of care and patient education refer to: OT Evaluation flowsheet, OT Evaluation and Treatment flowsheet, OT Treatment flowsheet, patient Plan of Care, Plan of Care progress note, and Patient Education. This note stands as the current Discharge Summary upon patient discharge from the hospital or completion of Occupational Therapy Plan of Care. Physical Therapy PHYSICAL THERAPY EVALUATION AND DISCHARGE Dx: Fall at home Closed fracture of left 12th rib Contusion of head Abrasion of multiple sites Skilled Therapy Needs After Discharge Anticipate Resolution of Current Assessment Limitations Including: Mechanical Barriers, Social Support Are Skilled Therapy Services Needed After Discharge: Yes Intensity of Skilled Therapy: 2-3 days per week (pt declined need) Anticipated Duration of Skilled Therapy: Duration 10 - 30 days DME Recommendation: Wheeled Walker (owns) DME Rationale: Patient's condition creates an increased risk of safety hazard without recommended equipment Rehab Potential: Good, For goals Outcomes Measures Prior Function - Basic Mobility Raw Score: 24 Points Prior Function - Basic Mobility % Impaired: 0% AM-PAC Basic Mobility Raw Score: 20 Points AM-PAC Basic Mobility % Impaired: 33.32% Physical Therapy Assessment History: The following factors influence the patient's participation in the PT plan of care: Personal Factors: Decreased Insight, Age, Social Barriers Environmental Factors: Steps to enter home, Lives alone The following co-morbidities (from this admission or prior) influence the patient's participation in this plan of care: See H&P Number of History elements affecting this patient's PT plan of care: 3 or more Examination of Body Systems: The patient presents with: Musculoskeletal impairments: Functional Endurance Neurologic Impairments: Balance Cardiopulmonary Impairments: Activity Tolerance Integumentary Impairments: Active Wound, Tissue Healing, Skin Integrity. These impairments result in limitations of Gait, Functional Transfers, Stair-Climbing, Safety, Safety Awareness, Activity Tolerance, Insight. These impairments result in restrictions of Household mobility, Community mobility, Leisure activities. Number of Body Systems elements affecting this patient's PT plan of care: 4 or more. Clinical Presentation: The patient's clinical presentation for this PT evaluation is evolving with changing characteristics as evidenced by current PT documentation. Activity Tolerance Activity Tolerance: Tolerates 10 - 20 min activity with multiple rests Therapy Precautions Orthotic Devices: No Weight Bearing Status: WFL General Rehab Precautions: Fall risk Balance Assessment Sitting Balance - Static: Independent, with back unsupported Standing Balance - Static: Stand by assist, with device Software Engineer - Standing Static: wheeled walker Bed Mobility Supine to Sit: Modified independent, Head of bed elevated Sit to Supine: Modified independent, Head of bed flat Software Engineer: bedrails Transfers Sit to Stand: Stand by assist (multiple attempts required) Software Engineer: wheeled walker Gait/Locomotion Gait Assistance: Stand by assist Assistive Device: wheeled walker Distance: 15 Feet Pattern: step through, L decreased step length, R decreased step length, over reliance on upper extremities, forward flexed Environment/Terrain: closed environment, minimal to no distractions Additional Assessment Details Daughter present for session. Pt ambulated to doorway and back to supine upon request. Pt and daughter educated on sitting up in chair for breakfast, up to bathroom with nursing staff rather than using urinal, pt declined. Pt politely declined need for further therapy in acute care or at home. Bed alarm set. Pt stated he will use walker when he discharges home. Pt stated no pain. Home Living Obtained Home Living and PLOF info from: Patient Lives With: Alone Type of Home: House Home Layout: One level Steps to enter home: Yes Rails to enter home: 1 rail Number of stairs to enter home: 3 Bathroom Shower/Tub: Tub/shower unit, Walk-in shower Bathroom Equipment: Grab bars in shower Mobility Equipment: Cane, Wheeled walker Prior Level of Function Level of [place] - Transfers/Ambulation/Mobility: Independent with functional transfers, Independent with household ambulation Level of [place] - ADLs: Independent Level of [place] - Homemaking: Independent Driving: Patient drives Vocational: Retired Subjective Impression - Prior Function: Pt does not use AD Past Medical History: Diagnosis Date Arrhythmia A Fib Bradycardia Hypertension Leukopenia Mild anemia Psoriasis Renal failure History reviewed. No pertinent surgical history. For complete objective data, detailed plan of care and patient education refer to: PT Evaluation flowsheet, PT Evaluation and Treatment flowsheet, PT Treatment flowsheet, patient Plan of Care, Plan of Care progress note, and Patient Education. This note stands as the current Discharge Summary upon patient discharge from the hospital or completion of Physical Therapy Plan. [facility] SURGICAL HISTORY & PHYSICAL/CONSULTATION NOTE ======== Closed fracture of one rib of left side Assessment & Plan Subtle nondisplaced fracture of left posterior 12th rib Nontender to palpation Pulm hygiene Contusion of head Assessment & Plan 1.5 cm laceration to forehead Dressing in place Tetanus updated Local wound care Fall Assessment & Plan Mechanical fall from standing Unknown LOC Daily ASA +Etoh Imaging pending Abrasions of multiple sites Assessment & Plan Skin tears noted to right hand and right elbow Imaging pending Local wound care The following Vizient risk variables were noted and present on admission: Hyponatremia and Hypokalemia Please see assessment and plan for further details. CHIEF COMPLAINT: Head pain Notification Time: 0350 Arrival at Bedside: 419 HISTORY OF PRESENT ILLNESS / INJURY (HPI): Mr. Glass is an 82-year-old male with past medical history of A-fib, hypertension, leukopenia, psoriasis and renal failure who presented to the emergency department after a mechanical fall from standing. He reports he was cleaning up a spill in his kitchen, leaned over and lost his balance and fell forward. He is unsure if he lost consciousness. He admits to alcohol use prior to the fall. He takes a daily baby aspirin. Work-up in the emergency department showed a subtle nondisplaced fracture of left posterior 12th rib, additional imaging pending. Trauma consulted for further evaluation. Patient is currently being admitted to the hospital for management of cellulitis. PAST MEDICAL HISTORY (PMH): Past Medical History: Diagnosis Date Arrhythmia A Fib Bradycardia Hypertension Leukopenia Mild anemia Psoriasis Renal failure History reviewed. No pertinent surgical history. Social History Tobacco Use Smoking status: Former Smokeless tobacco: Never Tobacco comments: quit in his 40s Vaping Use Vaping Use: Never used Substance Use Topics Alcohol use: Yes Comment: 4-6 RUM&COKE A DAY Drug use: Never Family History Problem Relation Age of Onset Emphysema Mother Diabetes Father Asthma Father MEDICATIONS: No current facility-administered medications on file prior to encounter. Current Outpatient Medications on File Prior to Encounter Medication Sig Dispense Refill amLODIPine (NORVASC) 5 MG tablet Take 5 mg by mouth daily . aspirin 81 MG EC tablet Take 1 (one) tablet (81 mg total) by mouth daily . b complex vitamins capsule Take 1 capsule by mouth daily . calcium carbonate 168 mg calcium (420 mg) Chew Chew and Swallow daily as needed . clobetasol (TEMOVATE) 0.05 % scalp solution Apply topically daily Apply thin film onto dry scalp affected areas only. Leave in place for 15 min before lathering and rinsing. . hydrALAZINE (APRESOLINE) 50 MG tablet Take 0.5 (one-half) tablet (25 mg total) by mouth 3 (three) times a day . 45 tablet 0 hydrocortisone 1 % cream Apply topically 2 (two) times a day . ketoconazole (NIZORAL) 2 % cream APPLY CREAM TOPICALLY TO AFFECTED AREA TWICE DAILY pantoprazole (PROTONIX) 40 MG tablet Take 1 (one) tablet (40 mg total) by mouth daily . triamcinolone (KENALOG) 0.1 % cream Apply topically 2 (two) times a day Reasons: Psoriasis of Scalp. ALLERGIES: No Known Allergies REVIEW OF SYSTEMS: COVID19 Screen: Negative for fever, cough, SOB, exposure. Constitutional Symptoms: Negative for unexplained falls, weight loss Eyes: Negative for eye pain or vision changes Ears, Nose, Mouth, Throat: Negative for rhinorrhea, nasal pain, dysphagia, hoarseness Cardiovascular: Negative for chest pain, orthopnea, edema Respiratory: Negative for cough, shortness of breath Gastrointestinal: Negative for abdominal pain, nausea, vomiting, diarrhea Genitourinary: Negative for dysuria, hematuria Musculoskeletal: Negative for joint edema +pain to bilat lower extremities Skin/Breast: Negative for rash, itching +laceration and multiple skin tears Neurological: Negative for paresthesia, paralysis, loss of bowel or bladder control Psychiatric: Negative for depression, anxiety, or suicidal ideations Endocrine: Negative for heat/cold intolerance, polydipsia, polyphagia, polyuria Hematologic/Lymphatic: Negative for family hx of clotting or bleeding disorders +ASA use Allergic/Immunologic: Allergies reviewed, no use of immunosuppressants or active chemotherapy Other than the above items, the remainder of a complete review of systems is otherwise negative. PHYSICAL EXAM: BP (!) 180/61 (Patient Position: Lying) Pulse 68 Temp 97.8 F (36.6 C) (Oral) Resp 12 SpO2 93% There is no height or weight on file to calculate BMI. GENERAL: Appears age appropriate. No acute distress. NEUROLOGICAL: Alert and oriented X 3. Follows commands with extremities x4, equal strength. Pupils equal, round, reactive to light. EOMI. No focal neurologic deficits noted. GCS = 15 Head Eyes Ear Nose Throat: Head: Normocephalic, laceration to forehead. Eyes: Conjunctivae/sclerae/corneas clear. Ears: External ear normal. Hearing within normal limits for patient. No drainage. Nose: septum midline, no drainage or nasal tenderness. Throat: phonation normal Neck: Supple, trachea midline, no midline tenderness, step offs, bony crepitus. CARDIOVASCULAR: Irregular rhythm. No clicks, rubs, murmurs or gallops noted. 2+ pulses radial/DP/PT bilaterally. +Bilateral lower extremity edema. RESPIRATORY: Lungs, clear to auscultation bilaterally. No rhonchi, wheezes or crackles. Respiratory effort unlabored without use of accessory muscles. ABDOMINAL: Rounded, soft, nontender, nondistended, normal bowel sounds. No guarding or peritoneal signs. GENITOURINARY: Normal genitalia for age without lesion or trauma. Rectal exam - defer MUSCULOSKELETAL: Extremities without gross deformity x4. ROM appropriate for age. No clubbing, cyanosis or joint edema. Skin tears noted to left arm. SPINE: No midline tenderness, stepoffs, or bony tenderness to thoracic and lumbar spine SKIN: Skin warm and dry. Redness noted to bilateral lower extremities. IMAGING STUDIES: I have reviewed the following: CXR, CT Head, CT C spine, CT CAP, CT Lspine, CT Tspine, XR right elbow, XR right hand. LABORATORY STUDIES: Lab Results Component Value Date WBC 3.97 (L) 06/06/2022 HGB 8.5 (L) 06/06/2022 HCT 27.1 (L) 06/06/2022 MCV 87.7 06/06/2022 PLT 160 06/06/2022 RBC 3.09 (L) 06/06/2022 Lab Results Component Value Date GLUCOSE 92 06/06/2022 CALCIUM 8.6 06/06/2022 NA 131 (L) 06/06/2022 K 3.2 (L) 06/06/2022 CL 99 06/06/2022 BUN 9 06/06/2022 CREATININE 0.70 (L) 06/06/2022 Lab Results Component Value Date ALT 20 06/06/2022 AST 38 06/06/2022 ALKPHOS 84 06/06/2022 BILITOT 0.7 06/06/2022 Associated attestation - Abebe Burden MD - 06/07/2022 1:10 PM EST The patient was seen by me, the attending trauma surgeon, at the time of notification as a trauma consultation in the emergency department. I have reviewed the advanced practice providert note as well as relevant labs, studies, and valuation consultant notes. I have reviewed and agree with the documented history, exam, and plan of care, with the following additions and corrections: Neuro Exam: GCS 15, no focal deficits Pulmonary Exam: Airway patent, clear sounds Abdominal Exam: soft, NT SKIN: multiple dressed abrasions, small laceration above right eye MSK: no taylor tenderness to extremities, back, or chest 14 systems reviewed and detailed in history and physical Plan: FAll with rib fx and abrasions, laceration Steris to lac, local wound care Supportive care for rib fracture Abebe Burden MD documented in this encounter [facility] 06-10-2022 Consult note Associated Order (s): IP CONSULT TO ENTEROSTOMAL THERAPY Images from the original note were not included. Wound care team consulted for skin tears to arm and head laceration. Pictures and wound care orders present from hospitalist. Nursing to educate and teach daughter how to perform dressing change prior to discharge. Wound care in agreement with hospitalist order and recommendation of adaptic and CDD done daily. Will defer all questions on this wound to hospitalist. Steri strip dry and intact above R eye. No recommendation for dressing at this time. Allow area to be open to air. [facility] 06-10-2022 Consult note Formatting of th is note is different from the original. Occupational Therapy OCCUPATIONAL THERAPY EVALUATION AND DISCHARGE NOTE Skilled Therapy Needs After Discharge Anticipate Resolution of Current Assessment Limitations Including: Mechanical Barriers, Pain, Social Support Are Skilled Therapy Services Needed After Discharge: Yes Intensity of Skilled Therapy: 2-3 days per week (Patient declines the need) Anticipated Duration of Skilled Therapy: Duration 10 - 30 days DME Recommendation: To be determined at next level of care Rehab Potential: Good, For goals RN agreeable with OT evaluation at this time. Patient reports no increased pain upon end of evaluation, left with all immediate needs met, and call light within reach. White board was updated and RN was notified of patient's mobility status. Patient left supine in bed with bed alarm activated due to fall risk score. I utilized the following PPE throughout this therapy session: Gloves, Surgical mask and Safety glasses A Manhole Builder did not assist with this evaluation. DX: mechanical fall, left 12th rib fx, head contusion and laceration, RUE abrasions, anemia Outcomes Measures Prior Function Daily Activity Raw Score: 24 Prior Function Daily Activity % Impaired: 0% AM-PAC Daily Activity Raw Score: 17 AM-PAC Daily Activity % Impaired: 50.11% Occupational Therapy Assessment The patient's current functional participation deficits are grooming, LE dressing, bathing, toileting, home management, meal preparation, functional mobility. This reduced independence will limit their life roles of premorbid level individual. The patient's co morbidities do affect patient performance in the above activities and roles. The performance deficits are a result of musculoskeletal impairment(s) in generalized debility including strength, balance, acitvity tolerance, insight. The patient's limitations of family / caregiver support is a barrier for return to prior level of function. The patient's awareness of own capacity and performance is a operations management professionals to return to prior level of function. During the assessment, minimal to moderate modification of task was required and several treatment options were identified in the plan of care. This consultation required expanded review of the medical and therapy history. Activity Tolerance Activity Tolerance: Tolerates 10 - 20 min activity with multiple rests Therapy Precautions Orthotic Devices: No Weight Bearing Status: WFL General Rehab Precautions: Fall risk Cognition Arousal/Alertness: Appropriate responses to stimuli Orientation Level: Oriented X4 Executive functioning: Insight Safety Judgment: Decreased awareness of need for assistance, Decreased awareness of need for safety Problem Solving: Assistance required to identify errors made, Assistance required to generate solutions, Assistance required to implement solutions Attention: Attends to quiet environment Hearing Status: Hard of hearing, Hearing aide, Right ear, Left ear Social Interaction: Cooperative ADL Feeding: Set-up, Supervision Grooming: Stand by assist (standing sinkside) Upper Body Bathing: Stand by assist Lower Body Bathing: Moderate assist Upper Body Dressing: Stand by assist Lower Body Dressing: Moderate assist Toileting: Contact guard assist Functional Mobility: Stand by assist (FWW, gait belt) Bed Mobility Rolling: Modified independent Supine to Sit: Modified independent Sit to Supine: Modified independent Software Engineer: bedrails Functional Transfers Sit to Stand: Minimal assist Bed to Chair Transfers: Contact guard assist Software Engineer: wheeled walker (gait belt) Additional Assessment Details All activities completed in preparation for discharge. Patient educated on role of OT and importance of OOB/EOB activities during hospital stay. Patient verbalized understanding. He declined sitting up in a chair this date despite encouragement. Patient declined the need for further therapy in acute setting or at home. OT will sign off per patient request. Please reconsult if needs change. Home Living Obtained Home Living and PLOF info from: Patient Lives With: Alone Type of Home: House Home Layout: One level Steps to enter home: Yes Rails to enter home: 1 rail Number of stairs to enter home: 3 Bathroom Shower/Tub: Tub/shower unit, Walk-in shower (Patient reports he typically uses tub/shower) Bathroom Toilet: Standard Bathroom Equipment: Toilet seat director of safety, Shower chair, Grab bars in shower Mobility Equipment: Cane, Wheeled walker Additional Objective Details - Home Living: Patient reports he uses no AD for functional mobility at baseline. Prior Level of Function Level of [place] - Transfers/Ambulation/Mobility: Independent with functional transfers, Independent with household ambulation, Independent with community ambulation Level of [place] - ADLs: Independent Level of [place] - Homemaking: Independent Driving: Patient drives Vocational: Retired Past Medical History: Diagnosis Date Arrhythmia A Fib Bradycardia Hypertension Leukopenia Mild anemia Psoriasis Renal failure History reviewed. No pertinent surgical history. For complete objective data, detailed plan of care and patient education refer to: OT Evaluation flowsheet, OT Evaluation and Treatment flowsheet, OT Treatment flowsheet, patient Plan of Care, Plan of Care progress note, and Patient Education. This note stands as the current Discharge Summary upon patient discharge from the hospital or completion of Occupational Therapy Plan of Care. [facility] 06-08-2022 Note Formatting of this n ote might be different from the original. POC reviewed & will continue. Antibiotics on board [facility] 06-08-2022 Consult note Formatting of th is note is different from the original. Physical Therapy PHYSICAL THERAPY EVALUATION AND DISCHARGE Dx: Fall at home Closed fracture of left 12th rib Contusion of head Abrasion of multiple sites Skilled Therapy Needs After Discharge Anticipate Resolution of Current Assessment Limitations Including: Mechanical Barriers, Social Support Are Skilled Therapy Services Needed After Discharge: Yes Intensity of Skilled Therapy: 2-3 days per week (pt declined need) Anticipated Duration of Skilled Therapy: Duration 10 - 30 days DME Recommendation: Wheeled Walker (owns) DME Rationale: Patient's condition creates an increased risk of safety hazard without recommended equipment Rehab Potential: Good, For goals Outcomes Measures Prior Function - Basic Mobility Raw Score: 24 Points Prior Function - Basic Mobility % Impaired: 0% AM-PAC Basic Mobility Raw Score: 20 Points AM-[facility] Basic Mobility % Impaired: 33.32% Physical Therapy Assessment History: The following factors influence the patient's participation in the PT plan of care: Personal Factors: Decreased Insight, Age, Social Barriers Environmental Factors: Steps to enter home, Lives alone The following co-morbidities (from this admission or prior) influence the patient's participation in this plan of care: See H&P Number of History elements affecting this patient's PT plan of care: 3 or more Examination of Body Systems: The patient presents with: Musculoskeletal impairments: Functional Endurance Neurologic Impairments: Balance Cardiopulmonary Impairments: Activity Tolerance Integumentary Impairments: Active Wound, Tissue Healing, Skin Integrity. These impairments result in limitations of Gait, Functional Transfers, Stair-Climbing, Safety, Safety Awareness, Activity Tolerance, Insight. These impairments result in restrictions of Household mobility, Community mobility, Leisure activities. Number of Body Systems elements affecting this patient's PT plan of care: 4 or more. Clinical Presentation: The patient's clinical presentation for this PT evaluation is evolving with changing characteristics as evidenced by current PT documentation. Activity Tolerance Activity Tolerance: Tolerates 10 - 20 min activity with multiple rests Therapy Precautions Orthotic Devices: No Weight Bearing Status: WFL General Rehab Precautions: Fall risk Balance Assessment Sitting Balance - Static: Independent, with back unsupported Standing Balance - Static: Stand by assist, with device Software Engineer - Standing Static: wheeled walker Bed Mobility Supine to Sit: Modified independent, Head of bed elevated Sit to Supine: Modified independent, Head of bed flat Software Engineer: bedrails Transfers Sit to Stand: Stand by assist (multiple attempts required) Software Engineer: wheeled walker Gait/Locomotion Gait Assistance: Stand by assist Assistive Device: wheeled walker Distance: 15 Feet Pattern: step through, L decreased step length, R decreased step length, over reliance on upper extremities, forward flexed Environment/Terrain: closed environment, minimal to no distractions Additional Assessment Details Daughter present for session. Pt ambulated to doorway and back to supine upon request. Pt and daughter educated on sitting up in chair for breakfast, up to bathroom with nursing staff rather than using urinal, pt declined. Pt politely declined need for further therapy in acute care or at home. Bed alarm set. Pt stated he will use walker when he discharges home. Pt stated no pain. Home Living Obtained Home Living and PLOF info from: Patient Lives With: Alone Type of Home: House Home Layout: One level Steps to enter home: Yes Rails to enter home: 1 rail Number of stairs to enter home: 3 Bathroom Shower/Tub: Tub/shower unit, Walk-in shower Bathroom Equipment: Grab bars in shower Mobility Equipment: Cane, Wheeled walker Prior Level of Function Level of [place] - Transfers/Ambulation/Mobility: Independent with functional transfers, Independent with household ambulation Level of [place] - ADLs: Independent Level of [place] - Homemaking: Independent Driving: Patient drives Vocational: Retired Subjective Impression - Prior Function: Pt does not use AD Past Medical History: Diagnosis Date Arrhythmia A Fib Bradycardia Hypertension Leukopenia Mild anemia Psoriasis Renal failure History reviewed. No pertinent surgical history. For complete objective data, detailed plan of care and patient education refer to: PT Evaluation flowsheet, PT Evaluation and Treatment flowsheet, PT Treatment flowsheet, patient Plan of Care, Plan of Care progress note, and Patient Education. This note stands as the current Discharge Summary upon patient discharge from the hospital or completion of Physical Therapy Plan. [facility] 06-07-2022 Note Formatting of this n ote is different from the original. Trauma Sign-Off Note Discharge Medications: N/A Wound Care and Drain Instruction/Orders: Local wound care to abrasions/skin tears. Steristrips to left forehead/eye lac. Diet: Regular diet Activity: No restriction. Follow-up Imaging, Testing: N/A Follow-up Appointment: N/A Left rib fx likely old, no acute pain. Local wound care as above. Trauma will sign off at this time. [facility] Work Phone: 06-07-2022 Note Formatting of this n ote might be different from the original. Problem: Pain Goal: Manage acute pain Outcome: Partially Met Goal: Manage chronic pain Outcome: Partially Met Goal: Reduced pain sensation Outcome: Partially Met Goal: Achievement of comfort function goal Outcome: Partially Met Problem: Falls, Risk of Goal: Absence of falls Outcome: Partially Met Problem: Actual or potential alteration in health Goal: Absence of healthcare acquired conditions Outcome: Partially Met Goal: Knowledge of Interdisciplinary Plan of Care Outcome: Partially Met Goal: Knowledge of Enviroment Outcome: Partially Met Problem: Pressure Ulcer - Risk of Goal: Absence of pressure ulcer Outcome: Partially Met [facility] 06-07-2022 History and physical note [facility] [place] HISTORY AND PHYSICAL -- [facility] Patient Name: Salvador Glass : 1940 MR #: [id number] Admit Date: 06/06/2022 Physicians: Walter Munguia MD (Family); No ref. provider found (Referring) Salvador Glass is a 82 y.o. male patient of Walter Munguia MD with history of Afib, Hypertension, CKD presented to [facility] with fall resulting in head contusion/laceration and 12th rib #. Mechanical Fall Left 12th rib # Head contusion and laceration Multiple arm abrasions CT brain-periorbital swelling, small mastoid effusions Cooper CT-12th rib #, b/l pleural effusions, portal HTN/cirrhosis EKG-Afib, non-acute Incentive spirometer Fall precautions Trauma following Received tetanus infection and cefazolin 1 dose Will start oral augmentin for multiple open wounds SCD for DVT prophylaxis PT/OT eval Mild hypokalemia Replete levels with oral K+ Check mg levels Whlcnhncryem-[id number] Possible from chronic alcohol use Na+-131>135 Mild lactic acidosis Lactic acid 2.5>2.1 Likely related to infection Anemia- chronic Hb-8.5 Baseline Hb-9 04/2022-anemia profile normal Transfuse if hb <7 A. Fib EKG-Afib Not on anticoagulation-Per notes patient declines Cnt Aspirin Hypertension Norvasc and hydralazine Alcohol Abuse Alcohol level 150 CIWA scores Banana bag Thiamine and folic acid Monitor for withdrawal symptoms Alcohol cessation encouraged Radiographic cirrhosis, splenomegaly Noted on CT likely secondary to chronic alcohol use Encouraged on alcohol cessation/ significant reduction Code Status: Full Code Medication Reconciliation: Unverified Residence prior to admission: house or apartment Was patient transferred from outlying hospital or ED no Quality Measures DVT Prophylaxis: SCDs Win Catheter: absent Risk variables present on admission:Hyponatremia and Hypokalemia. Please see assessment and plan for further details. Chief Complaint Fall History of Present Illness This is a 82 year old man with Afib, HTN, Alcohol use presenting on account of fall from a standing position. Patient states last night he was making food when some dropped on the floor, he went to wipe up the mess and lost balance landing on his face and left side. He denies any prior chest pain, nausea, vomiting, palpitations or dizziness prior. Unable to confirm if he had loss of consciousness but does not believe so. He was unable to stand back up but crawled to the phone and activated EMS. Of note he does admit to drinking 'too much' rum and coke which she consumed daily. On ED arrival he was hypertensive. Labs significant for chronic anemia mild lactic acidosis of 2.1, U tox negative, alcohol 150. Imaging negative for intracranial bleeding but did show right periorbital swelling suggesting laceration. Additionally hepatic cirrhosis and portal hypertension with splenomegaly was noted. Of note patient had prior fall April 2022 at this time thought to be due to hyponatremia. Past Medical History Past Medical History: Diagnosis Date Arrhythmia A Fib Bradycardia Hypertension Leukopenia Mild anemia Psoriasis Renal failure Past Surgical History History reviewed. No pertinent surgical history. Family History Family History Problem Relation Age of Onset Emphysema Mother Diabetes Father Asthma Father Social History Social History Tobacco Use Smoking Status Former Smokeless Tobacco Never Tobacco Comments quit in his 40s Social History Substance and Sexual Activity Alcohol Use Yes Comment: 4-6 RUM&COKE A DAY Social History Substance and Sexual Activity Drug Use Never Allergy Information I have reviewed the patient's allergies. Patient has no known allergies. Home Medications Home medications were reviewed. Review Of Systems All systems have been reviewed and are negative except as noted in HPI or below Physical Examination BP (!) 180/61 (Patient Position: Lying) Pulse 77 Temp 97.8 F (36.6 C) (Oral) Resp 14 SpO2 93% General Appearance: alert; acutely ill appearing; in no acute distress HEENT: Head- bruising/laceration which are dressed; Eyes- EOMI, sclera anicteric; Ears- hearing intact; Nose- no nasal discharge; Throat- mucous membranes moist Cardiovascular: regular rate and irreg rhythm; normal S1, S2; no murmurs, rubs, clicks or gallops; 1+ LE edema Respiratory: lungs clear to auscultation; without wheezes, rales or rhonchi; on room air Abdomen: soft, non-tender, non-distended; positive bowel sounds Neurological: oriented x 3; normal speech; no focal findings or movement disorder noted Musculoskeletal: no significant deformity or tenderness to palpation Skin: multiple areas of bruising and abrasions on arms Head with laceration which is dressed Psych: normal mood and affect Laboratory and Additional Data Reviewed Laboratory 06/07/22 11:33 AM Radiology 06/07/22 11:33 AM Cardiology 06/07/22 11:33 AM Medications 06/07/22 11:33 AM [facility] 06-07-2022 History and physical note [facility] [place] HISTORY AND PHYSICAL -- [facility] Patient Name: Salvador Glass : 1940 MR #: [id number] Admit Date: 06/06/2022 Physicians: Walter Munguia MD (Family); No ref. provider found (Referring) Salvador Glass is a 82 y.o. male patient of Walter Munguia MD with history of Afib, Hypertension, CKD presented to [facility] with fall resulting in head contusion/laceration and 12th rib #. Mechanical Fall Left 12th rib # Head contusion and laceration Multiple arm abrasions CT brain-periorbital swelling, small mastoid effusions Cooper CT-12th rib #, b/l pleural effusions, portal HTN/cirrhosis EKG-Afib, non-acute Incentive spirometer Fall precautions Trauma following Received tetanus infection and cefazolin 1 dose Will start oral augmentin for multiple open wounds SCD for DVT prophylaxis PT/OT eval Mild hypokalemia Replete levels with oral K+ Check mg levels Cvttxyjgjhsg-pqliaop-[id number] Possible from chronic alcohol use Na+-131>135 Mild lactic acidosis Lactic acid 2.5>2.1 Likely related to infection Anemia- chronic Hb-8.5 Baseline Hb-9 04/2022-anemia profile normal Transfuse if hb <7 A. Fib EKG-Afib Not on anticoagulation-Per notes patient declines Cnt Aspirin Hypertension Norvasc and hydralazine Alcohol Abuse Alcohol level 150 CIWA scores Banana bag Thiamine and folic acid Monitor for withdrawal symptoms Alcohol cessation encouraged Radiographic cirrhosis, splenomegaly Noted on CT likely secondary to chronic alcohol use Encouraged on alcohol cessation/ significant reduction Code Status: Full Code Medication Reconciliation: Unverified Residence prior to admission: house or apartment Was patient transferred from outlying hospital or ED no Quality Measures DVT Prophylaxis: SCDs Win Catheter: absent Risk variables present on admission:Hyponatremia and Hypokalemia. Please see assessment and plan for further details. Chief Complaint Fall History of Present Illness This is a 82 year old man with Afib, HTN, Alcohol use presenting on account of fall from a standing position. Patient states last night he was making food when some dropped on the floor, he went to wipe up the mess and lost balance landing on his face and left side. He denies any prior chest pain, nausea, vomiting, palpitations or dizziness prior. Unable to confirm if he had loss of consciousness but does not believe so. He was unable to stand back up but crawled to the phone and activated EMS. Of note he does admit to drinking 'too much' rum and coke which she consumed daily. On ED arrival he was hypertensive. Labs significant for chronic anemia mild lactic acidosis of 2.1, U tox negative, alcohol 150. Imaging negative for intracranial bleeding but did show right periorbital swelling suggesting laceration. Additionally hepatic cirrhosis and portal hypertension with splenomegaly was noted. Of note patient had prior fall April 2022 at this time thought to be due to hyponatremia. Past Medical History Past Medical History: Diagnosis Date Arrhythmia A Fib Bradycardia Hypertension Leukopenia Mild anemia Psoriasis Renal failure Past Surgical History History reviewed. No pertinent surgical history. Family History Family History Problem Relation Age of Onset Emphysema Mother Diabetes Father Asthma Father Social History Social History Tobacco Use Smoking Status Former Smokeless Tobacco Never Tobacco Comments quit in his 40s Social History Substance and Sexual Activity Alcohol Use Yes Comment: 4-6 RUM&COKE A DAY Social History Substance and Sexual Activity Drug Use Never Allergy Information I have reviewed the patient's allergies. Patient has no known allergies. Home Medications Home medications were reviewed. Review Of Systems All systems have been reviewed and are negative except as noted in HPI or below Physical Examination BP (!) 180/61 (Patient Position: Lying) Pulse 77 Temp 97.8 F (36.6 C) (Oral) Resp 14 SpO2 93% General Appearance: alert; acutely ill appearing; in no acute distress HEENT: Head- bruising/laceration which are dressed; Eyes- EOMI, sclera anicteric; Ears- hearing intact; Nose- no nasal discharge; Throat- mucous membranes moist Cardiovascular: regular rate and irreg rhythm; normal S1, S2; no murmurs, rubs, clicks or gallops; 1+ LE edema Respiratory: lungs clear to auscultation; without wheezes, rales or rhonchi; on room air Abdomen: soft, non-tender, non-distended; positive bowel sounds Neurological: oriented x 3; normal speech; no focal findings or movement disorder noted Musculoskeletal: no significant deformity or tenderness to palpation Skin: multiple areas of bruising and abrasions on arms Head with laceration which is dressed Psych: normal mood and affect Laboratory and Additional Data Reviewed Laboratory 06/07/22 11:33 AM Radiology 06/07/22 11:33 AM Cardiology 06/07/22 11:33 AM Medications 06/07/22 11:33 AM documented in this encounter [facility] 06-07-2022 Emergency department Note REPORT CALLED TO RECEIVING NURSE FOR PT'S ADMISSION PAGED FOR TRANSPORT TO TAKE PT UP [facility] 06-07-2022 Emergency department Note REPORT CALLED TO RECEIVING NURSE FOR PT'S ADMISSION PAGED FOR TRANSPORT TO TAKE PT UP Associated Order(s): EKG 12-lead [facility] ED Attending Note: NAME: Salvador Glass 82 y.o. CSN: [id number] PCP: Walter Munguia MD History: Chief Complaint: Fall HPI: The history was obtained from the patient and family . Salvador is a 82 y.o. male who presents with a chief complaint of Fall. 82-year-old male with a history of A. fib and chronic alcohol abuse presents after a fall at home. Patient states that he went to wipe something up off the floor and lost his balance falling forward, hitting his head and then falling onto his side. He complains of head pain. On exam patient is alert and oriented. He does admit to alcohol use tonight stating that he had 6 rum and coke drinks. He denies any nausea vomiting dizziness chest pain or shortness of breath. PMHx: Past Medical History: Diagnosis Date Arrhythmia A Fib Bradycardia Hypertension Leukopenia Mild anemia Psoriasis Renal failure PMSx: History reviewed. No pertinent surgical history. FAM. Hx: Family History Problem Relation Age of Onset Emphysema Mother Diabetes Father Asthma Father SOC. Hx: Social History Socioeconomic History Marital status: Tobacco Use Smoking status: Former Smokeless tobacco: Never Tobacco comments: quit in his 40s Vaping Use Vaping Use: Never used Substance and Sexual Activity Alcohol use: Yes Comment: 4-6 RUM&COKE A DAY Drug use: Never MEDs: Previous Medications Medication Sig amLODIPine (NORVASC) 5 MG tablet Take 5 mg by mouth daily . aspirin 81 MG EC tablet Take 1 (one) tablet (81 mg total) by mouth daily . b complex vitamins capsule Take 1 capsule by mouth daily . calcium carbonate 168 mg calcium (420 mg) Chew Chew and Swallow daily as needed . clobetasol (TEMOVATE) 0.05 % scalp solution Apply topically daily Apply thin film onto dry scalp affected areas only. Leave in place for 15 min before lathering and rinsing. . hydrALAZINE (APRESOLINE) 50 MG tablet Take 0.5 (one-half) tablet (25 mg total) by mouth 3 (three) times a day . hydrocortisone 1 % cream Apply topically 2 (two) times a day . ketoconazole (NIZORAL) 2 % cream APPLY CREAM TOPICALLY TO AFFECTED AREA TWICE DAILY pantoprazole (PROTONIX) 40 MG tablet Take 1 (one) tablet (40 mg total) by mouth daily . triamcinolone (KENALOG) 0.1 % cream Apply topically 2 (two) times a day Reasons: Psoriasis of Scalp. ALL: No Known Allergies ROS: Review of Systems Constitutional: Negative for chills and fever. HENT: Negative for congestion. Eyes: Negative for visual disturbance. Respiratory: Negative for cough, chest tightness and shortness of breath. Cardiovascular: Negative for chest pain and leg swelling. Gastrointestinal: Negative for abdominal pain, diarrhea, nausea and vomiting. Genitourinary: Negative for dysuria and frequency. Musculoskeletal: Negative for arthralgias. Skin: Negative. Negative for rash. Neurological: Positive for headaches. Negative for dizziness and weakness. Psychiatric/Behavioral: Negative for dysphoric mood. The patient is not nervous/anxious. All other systems reviewed and are negative. Positives and pertinent negatives as per HPI. All other systems were reviewed and are negative. Physical Exam: Patient Vitals for the past 24 hrs: BP Temp Temp src Pulse Resp SpO2 06/07/22 0400 -- -- -- 73 14 92 % 06/07/22 0330 -- -- -- 68 13 91 % 06/07/22 0230 (!) 180/61 -- -- 67 14 93 % 06/07/22 0100 (!) 148/56 -- -- 70 14 -- 06/07/22 0030 (!) 148/67 -- -- 69 12 -- 06/07/22 0000 (!) 151/70 -- -- 78 12 95 % 06/06/22 2345 -- -- -- 70 (!) 20 98 % 06/06/22 2330 (!) 149/61 -- -- 68 12 96 % 06/06/22 2300 (!) 159/67 -- -- 81 14 99 % 06/06/22 2239 (!) 154/74 97.8 F (36.6 C) Oral 68 18 97 % Physical Exam Vitals and nursing note reviewed. HENT: Head: Normocephalic. Comments: Y-shaped laceration 1.5 cm to left forehead just above the eyebrow Right Ear: External ear normal. Left Ear: External ear normal. Nose: Nose normal. Mouth/Throat: Mouth: Mucous membranes are moist. Eyes: Extraocular Movements: Extraocular movements intact. Conjunctiva/sclera: Conjunctivae normal. Neck: Comments: In collar Cardiovascular: Rate and Rhythm: Normal rate. Rhythm irregular. Pulmonary: Effort: Pulmonary effort is normal. Breath sounds: Normal breath sounds. Abdominal: General: Bowel sounds are normal. Palpations: Abdomen is soft. Musculoskeletal: General: No tenderness. Normal range of motion. Comments: Bilateral lower extremity erythema +4 pitting edema and temperature elevation DP 1+ Skin: Comments: 1.5 cm laceration Y-shaped with bloody ooze to right forehead just above eyebrow. Skin tear to right dorsal forearm. Skin tear to right elbow Neurological: Mental Status: He is alert. Psychiatric: Comments: Intoxicated Laboratory & Radiological Imaging (if done): Labs Reviewed ALCOHOL, MEDICAL - Abnormal; Notable for the following components: Result Value Alcohol (Medical) 150.00 (*) All other components within normal limits BASIC METABOLIC PANEL - Abnormal; Notable for the following components: Sodium 131 (*) Potassium 3.2 (*) Creatinine 0.70 (*) All other components within normal limits Narrative: [facility] has implemented the eGFR calculation approach that does not have a coefficient for race that conforms to the NKF-ASN Task Force Recommendations. LACTIC ACID, PLASMA - Abnormal; Notable for the following components: Lactic Acid 2.5 (*) All other components within normal limits PT/INR - Abnormal; Notable for the following components: Protime (PT) 15.0 (*) INR 1.2 (*) All other components within normal limits Narrative: During the induction phase of oral anticoagulation, the INR may not reflect the anticoagulation status of the patient. Therapeutic ranges for INR's are: Most clinical situations: INR 2.0-3.0 Mechanical Prosthetic Valve: INR 2.5-3.5 Critical: INR >5.0 CBC WITH AUTO DIFFERENTIAL - Abnormal; Notable for the following components: WBC 3.97 (*) RBC 3.09 (*) Hemoglobin 8.5 (*) Hematocrit 27.1 (*) MPV 8.9 (*) Lymphocytes Abs 0.46 (*) All other components within normal limits HEPATIC FUNCTION PANEL - Normal URINALYSIS - Normal Narrative: Microscopic examination is performed on all urinalysis samples and only positive findings are reported. The test for blood on the chemical analytic portion of urinalysis may also be positive due to hemoglobinuria and myoglobinuria and if red blood cells are present they are quantified by microscopic examination. DRUGS OF ABUSE SCREEN, URINE - Normal Narrative: Screen results should be used for treatment purposes only. CBC AND DIFFERENTIAL Narrative: The following orders were created for panel order CBC w/ Diff. Procedure Abnormality Status --------- ------ CBC Auto Differential[[id number]] Abnormal Final result Please view results for these tests on the individual orders. LACTIC ACID, PLASMA CT Chest Abdomen Pelvis Without Contrast Final Result 1. Suggested very subtle nondisplaced fracture involving the left posterior 12th rib. Correlation for focal tenderness recommended. No other potential acute traumatic change is seen in the chest, abdomen or pelvis, allowing for exam limitations due to the lack of contrast. A nonacute distal left clavicular fracture is noted. 2. No acute thoracic spine findings. 3. No acute lumbar spine findings. 4. Suspected anemia. 5. Coronary arterial calcifications. 6. Mild nonspecific mediastinal adenopathy. 7. Bilateral pleural effusions with adjacent posterior lung atelectasis, right greater than left. 8. 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 9. Nonobstructing 2 mm left renal calculus. 10. 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 11. Nonspecific inferior rectal wall thickening with surrounding presacral fluid and fat stranding. Clinical correlation recommended to exclude mild proctitis or potential mass. Workstation ID: [id number] CT Cervical Spine Without Contrast Final Result 1. No acute cervical spine findings. Chronic changes are described above. 2. Small bilateral mastoid effusions. 3. Right pleural effusion with nonspecific increased interstitial markings at the lung apices. Mild pulmonary edema cannot be excluded. Workstation ID: [id number] CT Head Or Brain Without Contrast Final Result 1. No calvarial fracture or acute intracranial process. 2. Fairly small bilateral mastoid effusions. 3. Right periorbital soft tissue swelling and suggested laceration. Workstation ID: [id number] XR Chest 1 View Final Result 1. Mild cardiomegaly. 2. Chronic changes and findings of slight CHF, please correlate. Workstation ID: [id number] CT Lumbar Spine Reconstructed (Results Pending) CT Thoracic Spine Reconstructed (Results Pending) XR Hand Right 3+ Views (Standard) (Results Pending) XR Elbow Right 3+ Views (Standard) (Results Pending) EKG: . ED Course / Medical Decision Making: On exam patient is lying in bed in cervical collar alert pleasant talkative complaining only of head pain. Lungs are clear to auscultation. Heart is regular rate and rhythm. He is moving all extremities. There is no chest wall tenderness. Pelvis is stable. No tenderness cervical thoracic and lumbar. Moving all extremities with bilateral neurovascular status of upper and lower extremities intact. CT scan show: Left 12th posterior nondisplaced rib fracture; consult placed for trauma Bilateral lower legs with erythema from ankle to below knee and 4+ pitting edema. There is temperature elevation. Lactic acid is 2.5. White count shows some neutropenia at 3.97 but this is baseline for patient. Hemoglobin is 8.5 which is also baseline for patient.. A diagnosis of bilateral cellulitis was made. Patient was placed on Ancef. Alcohol level is 150.0. Y shaped laceration to right lateral forehead with slight bloody ooze. Surgicel and compressive dressing placed. Patient will be admitted to medicine with diagnosis of cellulitis. Placed on Ancef. Fluids. EKG 12-lead Date/Time: 06/06/2022 10:42 PM Performed by: Susan Butcher MD Authorized by: Susan Butcher MD Interpreted by ED attending physician BPM: 69 Clinical impression: abnormal ECG Comments: EKG interpretation by ED physician: EKG shows A. fib with a right axis. There are nonspecific ST and T wave abnormalities present. Impression abnormal EKG @MIPS@ Clinical Impression: 1. Cellulitis of lower extremity, unspecified laterality 2. Closed fracture of one rib of left side, initial encounter 3. Alcohol abuse Disposition: Patient is being hospitalize to med/surg (regular floor) Susan Butcher MD [facility] Emergency Department (Please note that portions of this note have been completed with a voice recognition software. Efforts were made to correct any errors, but occasionally words are mis-transcribed.) Susan Butcher MD 06/07/22 0430 PT STATES THEY HAD 6 RUM&COKE DRINKS TODAY. PT ARRIVED TO ED VIA EMS. PT A&O X4 UPON ARRIVAL. PT HAD A FALL TONIGHT AT HOME. PT SLIPPED ON A SPILL ON THE FLOOR. PT DID HIT HEAD AND HAS LACERATION ABOVE RIGHT EYE. PT UNKNOWN IS LOC. PT ARRIVED WITH C-COLLAR. Bed: 14 Expected date: Expected time: Means of arrival: Comments: [place] documented in this encounter [facility] 06-07-2022 Evaluation + Plan note Associated Problem(s): Closed fracture of one rib of left side . [facility] 06-07-2022 Evaluation + Plan note Associated Problem(s): Contusion of head . [facility] 06-07-2022 Evaluation + Plan note Associated Problem(s): Fall . [facility] 06-07-2022 Evaluation + Plan note Associated Problem(s): Abrasions of multiple sites . [facility] 06-07-2022 Consult note Formatting of th is note is different from the original. [facility] SURGICAL HISTORY & PHYSICAL/CONSULTATION NOTE ======== Closed fracture of one rib of left side Assessment & Plan Subtle nondisplaced fracture of left posterior 12th rib Nontender to palpation Pulm hygiene Contusion of head Assessment & Plan 1.5 cm laceration to forehead Dressing in place Tetanus updated Local wound care Fall Assessment & Plan Mechanical fall from standing Unknown LOC Daily ASA +Etoh Imaging pending Abrasions of multiple sites Assessment & Plan Skin tears noted to right hand and right elbow Imaging pending Local wound care The following Vizient risk variables were noted and present on admission: Hyponatremia and Hypokalemia Please see assessment and plan for further details. CHIEF COMPLAINT: Head pain Notification Time: 0350 Arrival at Bedside: 0420 HISTORY OF PRESENT ILLNESS / INJURY (HPI): Mr. Glass is an 82-year-old male with past medical history of A-fib, hypertension, leukopenia, psoriasis and renal failure who presented to the emergency department after a mechanical fall from standing. He reports he was cleaning up a spill in his kitchen, leaned over and lost his balance and fell forward. He is unsure if he lost consciousness. He admits to alcohol use prior to the fall. He takes a daily baby aspirin. Work-up in the emergency department showed a subtle nondisplaced fracture of left posterior 12th rib, additional imaging pending. Trauma consulted for further evaluation. Patient is currently being admitted to the hospital for management of cellulitis. PAST MEDICAL HISTORY (PMH): Past Medical History: Diagnosis Date Arrhythmia A Fib Bradycardia Hypertension Leukopenia Mild anemia Psoriasis Renal failure History reviewed. No pertinent surgical history. Social History Tobacco Use Smoking status: Former Smokeless tobacco: Never Tobacco comments: quit in his 40s Vaping Use Vaping Use: Never used Substance Use Topics Alcohol use: Yes Comment: 4-6 RUM&COKE A DAY Drug use: Never Family History Problem Relation Age of Onset Emphysema Mother Diabetes Father Asthma Father MEDICATIONS: No current facility-administered medications on file prior to encounter. Current Outpatient Medications on File Prior to Encounter Medication Sig Dispense Refill amLODIPine (NORVASC) 5 MG tablet Take 5 mg by mouth daily . aspirin 81 MG EC tablet Take 1 (one) tablet (81 mg total) by mouth daily . b complex vitamins capsule Take 1 capsule by mouth daily . calcium carbonate 168 mg calcium (420 mg) Chew Chew and Swallow daily as needed . clobetasol (TEMOVATE) 0.05 % scalp solution Apply topically daily Apply thin film onto dry scalp affected areas only. Leave in place for 15 min before lathering and rinsing. . hydrALAZINE (APRESOLINE) 50 MG tablet Take 0.5 (one-half) tablet (25 mg total) by mouth 3 (three) times a day . 45 tablet 0 hydrocortisone 1 % cream Apply topically 2 (two) times a day . ketoconazole (NIZORAL) 2 % cream APPLY CREAM TOPICALLY TO AFFECTED AREA TWICE DAILY pantoprazole (PROTONIX) 40 MG tablet Take 1 (one) tablet (40 mg total) by mouth daily . triamcinolone (KENALOG) 0.1 % cream Apply topically 2 (two) times a day Reasons: Psoriasis of Scalp. ALLERGIES: No Known Allergies REVIEW OF SYSTEMS: COVID19 Screen: Negative for fever, cough, SOB, exposure. Constitutional Symptoms: Negative for unexplained falls, weight loss Eyes: Negative for eye pain or vision changes Ears, Nose, Mouth, Throat: Negative for rhinorrhea, nasal pain, dysphagia, hoarseness Cardiovascular: Negative for chest pain, orthopnea, edema Respiratory: Negative for cough, shortness of breath Gastrointestinal: Negative for abdominal pain, nausea, vomiting, diarrhea Genitourinary: Negative for dysuria, hematuria Musculoskeletal: Negative for joint edema +pain to bilat lower extremities Skin/Breast: Negative for rash, itching +laceration and multiple skin tears Neurological: Negative for paresthesia, paralysis, loss of bowel or bladder control Psychiatric: Negative for depression, anxiety, or suicidal ideations Endocrine: Negative for heat/cold intolerance, polydipsia, polyphagia, polyuria Hematologic/Lymphatic: Negative for family hx of clotting or bleeding disorders +ASA use Allergic/Immunologic: Allergies reviewed, no use of immunosuppressants or active chemotherapy Other than the above items, the remainder of a complete review of systems is otherwise negative. PHYSICAL EXAM: BP (!) 180/61 (Patient Position: Lying) Pulse 68 Temp 97.8 F (36.6 C) (Oral) Resp 12 SpO2 93% There is no height or weight on file to calculate BMI. GENERAL: Appears age appropriate. No acute distress. NEUROLOGICAL: Alert and oriented X 3. Follows commands with extremities x4, equal strength. Pupils equal, round, reactive to light. EOMI. No focal neurologic deficits noted. GCS = 15 Head Eyes Ear Nose Throat: Head: Normocephalic, laceration to forehead. Eyes: Conjunctivae/sclerae/corneas clear. Ears: External ear normal. Hearing within normal limits for patient. No drainage. Nose: septum midline, no drainage or nasal tenderness. Throat: phonation normal Neck: Supple, trachea midline, no midline tenderness, step offs, bony crepitus. CARDIOVASCULAR: Irregular rhythm. No clicks, rubs, murmurs or gallops noted. 2+ pulses radial/DP/PT bilaterally. +Bilateral lower extremity edema. RESPIRATORY: Lungs, clear to auscultation bilaterally. No rhonchi, wheezes or crackles. Respiratory effort unlabored without use of accessory muscles. ABDOMINAL: Rounded, soft, nontender, nondistended, normal bowel sounds. No guarding or peritoneal signs. GENITOURINARY: Normal genitalia for age without lesion or trauma. Rectal exam - defer MUSCULOSKELETAL: Extremities without gross deformity x4. ROM appropriate for age. No clubbing, cyanosis or joint edema. Skin tears noted to left arm. SPINE: No midline tenderness, stepoffs, or bony tenderness to thoracic and lumbar spine SKIN: Skin warm and dry. Redness noted to bilateral lower extremities. IMAGING STUDIES: I have reviewed the following: CXR, CT Head, CT C spine, CT CAP, CT Lspine, CT Tspine, XR right elbow, XR right hand. LABORATORY STUDIES: Lab Results Component Value Date WBC 3.97 (L) 06/06/2022 HGB 8.5 (L) 06/06/2022 HCT 27.1 (L) 06/06/2022 MCV 87.7 06/06/2022 PLT 160 06/06/2022 RBC 3.09 (L) 06/06/2022 Lab Results Component Value Date GLUCOSE 92 06/06/2022 CALCIUM 8.6 06/06/2022 NA 131 (L) 06/06/2022 K 3.2 (L) 06/06/2022 CL 99 06/06/2022 BUN 9 06/06/2022 CREATININE 0.70 (L) 06/06/2022 Lab Results Component Value Date ALT 20 06/06/2022 AST 38 06/06/2022 ALKPHOS 84 06/06/2022 BILITOT 0.7 06/06/2022 Associated attestation - Abebe Burden MD - 06/07/2022 1:10 PM EST The patient was seen by me, the attending trauma surgeon, at the time of notification as a trauma consultation in the emergency department. I have reviewed the advanced practice providert note as well as relevant labs, studies, and valuation consultant notes. I have reviewed and agree with the documented history, exam, and plan of care, with the following additions and corrections: Neuro Exam: GCS 15, no focal deficits Pulmonary Exam: Airway patent, clear sounds Abdominal Exam: soft, NT SKIN: multiple dressed abrasions, small laceration above right eye MSK: no taylor tenderness to extremities, back, or chest 14 systems reviewed and detailed in history and physical Plan: FAll with rib fx and abrasions, laceration Steris to lac, local wound care Supportive care for rib fracture Abebe Burden MD [facility] 06-07-2022 Physician Emergency department Note Associated Order(s): EKG 12-lead [facility] ED Attending Note: NAME: Salvador Glass 82 y.o. CSN: [id number] PCP: Walter Munguia MD History: Chief Complaint: Fall HPI: The history was obtained from the patient and family . Salvador is a 82 y.o. male who presents with a chief complaint of Fall. 82-year-old male with a history of A. fib and chronic alcohol abuse presents after a fall at home. Patient states that he went to wipe something up off the floor and lost his balance falling forward, hitting his head and then falling onto his side. He complains of head pain. On exam patient is alert and oriented. He does admit to alcohol use tonight stating that he had 6 rum and coke drinks. He denies any nausea vomiting dizziness chest pain or shortness of breath. PMHx: Past Medical History: Diagnosis Date Arrhythmia A Fib Bradycardia Hypertension Leukopenia Mild anemia Psoriasis Renal failure PMSx: History reviewed. No pertinent surgical history. FAM. Hx: Family History Problem Relation Age of Onset Emphysema Mother Diabetes Father Asthma Father SOC. Hx: Social History Socioeconomic History Marital status: Tobacco Use Smoking status: Former Smokeless tobacco: Never Tobacco comments: quit in his 40s Vaping Use Vaping Use: Never used Substance and Sexual Activity Alcohol use: Yes Comment: 4-6 RUM&COKE A DAY Drug use: Never MEDs: Previous Medications Medication Sig amLODIPine (NORVASC) 5 MG tablet Take 5 mg by mouth daily . aspirin 81 MG EC tablet Take 1 (one) tablet (81 mg total) by mouth daily . b complex vitamins capsule Take 1 capsule by mouth daily . calcium carbonate 168 mg calcium (420 mg) Chew Chew and Swallow daily as needed . clobetasol (TEMOVATE) 0.05 % scalp solution Apply topically daily Apply thin film onto dry scalp affected areas only. Leave in place for 15 min before lathering and rinsing. . hydrALAZINE (APRESOLINE) 50 MG tablet Take 0.5 (one-half) tablet (25 mg total) by mouth 3 (three) times a day . hydrocortisone 1 % cream Apply topically 2 (two) times a day . ketoconazole (NIZORAL) 2 % cream APPLY CREAM TOPICALLY TO AFFECTED AREA TWICE DAILY pantoprazole (PROTONIX) 40 MG tablet Take 1 (one) tablet (40 mg total) by mouth daily . triamcinolone (KENALOG) 0.1 % cream Apply topically 2 (two) times a day Reasons: Psoriasis of Scalp. ALL: No Known Allergies ROS: Review of Systems Constitutional: Negative for chills and fever. HENT: Negative for congestion. Eyes: Negative for visual disturbance. Respiratory: Negative for cough, chest tightness and shortness of breath. Cardiovascular: Negative for chest pain and leg swelling. Gastrointestinal: Negative for abdominal pain, diarrhea, nausea and vomiting. Genitourinary: Negative for dysuria and frequency. Musculoskeletal: Negative for arthralgias. Skin: Negative. Negative for rash. Neurological: Positive for headaches. Negative for dizziness and weakness. Psychiatric/Behavioral: Negative for dysphoric mood. The patient is not nervous/anxious. All other systems reviewed and are negative. Positives and pertinent negatives as per HPI. All other systems were reviewed and are negative. Physical Exam: Patient Vitals for the past 24 hrs: BP Temp Temp src Pulse Resp SpO2 06/07/22 0400 -- -- -- 73 14 92 % 06/07/22 0330 -- -- -- 68 13 91 % 06/07/22 0230 (!) 180/61 -- -- 67 14 93 % 06/07/22 0100 (!) 148/56 -- -- 70 14 -- 06/07/22 0030 (!) 148/67 -- -- 69 12 -- 06/07/22 0000 (!) 151/70 -- -- 78 12 95 % 06/06/22 2345 -- -- -- 70 (!) 20 98 % 06/06/22 2330 (!) 149/61 -- -- 68 12 96 % 06/06/22 2300 (!) 159/67 -- -- 81 14 99 % 06/06/22 2239 (!) 154/74 97.8 F (36.6 C) Oral 68 18 97 % Physical Exam Vitals and nursing note reviewed. HENT: Head: Normocephalic. Comments: Y-shaped laceration 1.5 cm to left forehead just above the eyebrow Right Ear: External ear normal. Left Ear: External ear normal. Nose: Nose normal. Mouth/Throat: Mouth: Mucous membranes are moist. Eyes: Extraocular Movements: Extraocular movements intact. Conjunctiva/sclera: Conjunctivae normal. Neck: Comments: In collar Cardiovascular: Rate and Rhythm: Normal rate. Rhythm irregular. Pulmonary: Effort: Pulmonary effort is normal. Breath sounds: Normal breath sounds. Abdominal: General: Bowel sounds are normal. Palpations: Abdomen is soft. Musculoskeletal: General: No tenderness. Normal range of motion. Comments: Bilateral lower extremity erythema +4 pitting edema and temperature elevation DP 1+ Skin: Comments: 1.5 cm laceration Y-shaped with bloody ooze to right forehead just above eyebrow. Skin tear to right dorsal forearm. Skin tear to right elbow Neurological: Mental Status: He is alert. Psychiatric: Comments: Intoxicated Laboratory & Radiological Imaging (if done): Labs Reviewed ALCOHOL, MEDICAL - Abnormal; Notable for the following components: Result Value Alcohol (Medical) 150.00 (*) All other components within normal limits BASIC METABOLIC PANEL - Abnormal; Notable for the following components: Sodium 131 (*) Potassium 3.2 (*) Creatinine 0.70 (*) All other components within normal limits Narrative: [facility] has implemented the eGFR calculation approach that does not have a coefficient for race that conforms to the NKF-ASN Task Force Recommendations. LACTIC ACID, PLASMA - Abnormal; Notable for the following components: Lactic Acid 2.5 (*) All other components within normal limits PT/INR - Abnormal; Notable for the following components: Protime (PT) 15.0 (*) INR 1.2 (*) All other components within normal limits Narrative: During the induction phase of oral anticoagulation, the INR may not reflect the anticoagulation status of the patient. Therapeutic ranges for INR's are: Most clinical situations: INR 2.0-3.0 Mechanical Prosthetic Valve: INR 2.5-3.5 Critical: INR >5.0 CBC WITH AUTO DIFFERENTIAL - Abnormal; Notable for the following components: WBC 3.97 (*) RBC 3.09 (*) Hemoglobin 8.5 (*) Hematocrit 27.1 (*) MPV 8.9 (*) Lymphocytes Abs 0.46 (*) All other components within normal limits HEPATIC FUNCTION PANEL - Normal URINALYSIS - Normal Narrative: Microscopic examination is performed on all urinalysis samples and only positive findings are reported. The test for blood on the chemical analytic portion of urinalysis may also be positive due to hemoglobinuria and myoglobinuria and if red blood cells are present they are quantified by microscopic examination. DRUGS OF ABUSE SCREEN, URINE - Normal Narrative: Screen results should be used for treatment purposes only. CBC AND DIFFERENTIAL Narrative: The following orders were created for panel order CBC w/ Diff. Procedure Abnormality Status --------- ------ CBC Auto Differential[[id number]] Abnormal Final result Please view results for these tests on the individual orders. LACTIC ACID, PLASMA CT Chest Abdomen Pelvis Without Contrast Final Result 1. Suggested very subtle nondisplaced fracture involving the left posterior 12th rib. Correlation for focal tenderness recommended. No other potential acute traumatic change is seen in the chest, abdomen or pelvis, allowing for exam limitations due to the lack of contrast. A nonacute distal left clavicular fracture is noted. 2. No acute thoracic spine findings. 3. No acute lumbar spine findings. 4. Suspected anemia. 5. Coronary arterial calcifications. 6. Mild nonspecific mediastinal adenopathy. 7. Bilateral pleural effusions with adjacent posterior lung atelectasis, right greater than left. 8. 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 9. Nonobstructing 2 mm left renal calculus. 10. 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 11. Nonspecific inferior rectal wall thickening with surrounding presacral fluid and fat stranding. Clinical correlation recommended to exclude mild proctitis or potential mass. Workstation ID: [id number] CT Cervical Spine Without Contrast Final Result 1. No acute cervical spine findings. Chronic changes are described above. 2. Small bilateral mastoid effusions. 3. Right pleural effusion with nonspecific increased interstitial markings at the lung apices. Mild pulmonary edema cannot be excluded. Workstation ID: [id number] CT Head Or Brain Without Contrast Final Result 1. No calvarial fracture or acute intracranial process. 2. Fairly small bilateral mastoid effusions. 3. Right periorbital soft tissue swelling and suggested laceration. Workstation ID: [id number] XR Chest 1 View Final Result 1. Mild cardiomegaly. 2. Chronic changes and findings of slight CHF, please correlate. Workstation ID: [id number] CT Lumbar Spine Reconstructed (Results Pending) CT Thoracic Spine Reconstructed (Results Pending) XR Hand Right 3+ Views (Standard) (Results Pending) XR Elbow Right 3+ Views (Standard) (Results Pending) EKG: . ED Course / Medical Decision Making: On exam patient is lying in bed in cervical collar alert pleasant talkative complaining only of head pain. Lungs are clear to auscultation. Heart is regular rate and rhythm. He is moving all extremities. There is no chest wall tenderness. Pelvis is stable. No tenderness cervical thoracic and lumbar. Moving all extremities with bilateral neurovascular status of upper and lower extremities intact. CT scan show: Left 12th posterior nondisplaced rib fracture; consult placed for trauma Bilateral lower legs with erythema from ankle to below knee and 4+ pitting edema. There is temperature elevation. Lactic acid is 2.5. White count shows some neutropenia at 3.97 but this is baseline for patient. Hemoglobin is 8.5 which is also baseline for patient.. A diagnosis of bilateral cellulitis was made. Patient was placed on Ancef. Alcohol level is 150.0. Y shaped laceration to right lateral forehead with slight bloody ooze. Surgicel and compressive dressing placed. Patient will be admitted to medicine with diagnosis of cellulitis. Placed on Ancef. Fluids. EKG 12-lead Date/Time: 06/06/2022 10:42 PM Performed by: Susan Butcher MD Authorized by: Susan Butcher MD Interpreted by ED attending physician BPM: 69 Clinical impression: abnormal ECG Comments: EKG interpretation by ED physician: EKG shows A. fib with a right axis. There are nonspecific ST and T wave abnormalities present. Impression abnormal EKG @MIPS@ Clinical Impression: 1. Cellulitis of lower extremity, unspecified laterality 2. Closed fracture of one rib of left side, initial encounter 3. Alcohol abuse Disposition: Patient is being hospitalize to med/surg (regular floor) Susan Butcher MD [facility] Emergency Department (Please note that portions of this note have been completed with a voice recognition software. Efforts were made to correct any errors, but occasionally words are mis-transcribed.) Susan Butcher MD 06/07/22 0430 [facility] Work Phone: 06-06-2022 Emergency department Note PT STATES THEY HAD 6 RUM&COKE DRINKS TODAY. [facility] 06-06-2022 Emergency department Triage note PT ARRIVED TO ED VIA EMS. PT A&O X4 UPON ARRIVAL. PT HAD A FALL TONIGHT AT HOME. PT SLIPPED ON A SPILL ON THE FLOOR. PT DID HIT HEAD AND HAS LACERATION ABOVE RIGHT EYE. PT UNKNOWN IS LOC. PT ARRIVED WITH C-COLLAR. [facility] 06-06-2022 Emergency department Note Bed: 14 Expected date: Expected time: Means of arrival: Comments: Tato [facility] 04-20-2022 History of Present illness Narrative Received preventice report regarding patient having multiple pauses lasting ~3 seconds during sleep hours. Patient remains in atrial fibrillation with controlled ventricular rate, but will occassionally become bradycardic during sleep hours (HR in the 40s). Called patient and he reports feeling great-denies dizziness, dyspnea, weakness, syncope, or fatigue. Pt is not currently taking any AV node blocking medications. Will continue to monitor VAL reports. If patient has a pause > 5 seconds or becomes symptomatic with pauses, he may need PPM implant in future. documented in this encounter [facility] 04-16-2022 History of Present illness Narrative Received fax from [employer] that the company was going to begin a recovery process because patient is Non Compliant. Contacted and explained to patient they will start recovery process and advised the patient to contact [employer] 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 does not send patient a bill. Patient thankful and a agreeable to wearing VAL. -Hanny Su MA documented in this encounter [facility] 04-15-2022 History of Present illness Narrative Care Management Progress Note Date: 04/15/2022 Time: 3:02 PM Patient Name: Salvador Glass Date of : 1940 Discharge Plan: D/C Disposition: Home Health Care Services Related to Current Admission?: Yes Agency/Destination: Other ([facility]) Discharging Transportation Plan: Discharge Plan Status: Patient is discharged. Plan remains in place for patient to return home with [facility] through [facility]. Secure chat sent to Monae with the home health hub with update. NEPHROLOGY PROGRESS [facility] Patient Name: Salvador Glass Admit Date: [id number] MR #: [id number] : 1940 ASSESSMENT/PLAN: Hyponatremia: hypovolemic hyponatremia related to diuretic use (hydrochlorothiazide, Lasix, and Aldactone). -Sodium kelsey 119 on April 06. Has received tolvaptan with last dose on April 11. -Cont 1500 ml fluid restriction and sodium chloride 1 g 3 times a day. Sodium stable today at 130. 2. Severe pulmonary hypertension, moderate tricuspid valve regurgitation -Euvolemic on exam. We will sign off given sodium is stable at 130. Euvolemic on exam. Continue fluid restriction and salt tabs as above. Discussed with patient and his daughter. Subjective: Denies any new complaint. Daughter at bedside Review of Systems: ROS otherwise reviewed and negative Physical Examination: Vitals: Vitals: 04/14/22 2004 04/15/22 0410 04/15/22 0729 04/15/22 0757 BP: (!) 120/51 (!) 138/52 (!) 135/55 Pulse: (!) 54 (!) 56 (!) 53 Resp: 16 16 16 Temp: 98.8 F (37.1 C) 97.9 F (36.6 C) 97.5 F (36.4 C) TempSrc: Oral Oral Oral SpO2: 97% 98% 98% Weight: Height: Intake/Output last 3 shifts: Intake/Output Summary (Last 24 hours) at 04/15/2022 1220 Last data filed at 04/15/2022 0500 Gross per 24 hour Intake 600 ml Output 350 ml Net 250 ml I/O last 3 completed shifts: In: 600 [P.O.:600] Out: 1275 [Urine:1275] General: No acute distress HEENT: Anicteric Neck: Supple CV: Regular rate, no murmurs or rubs. No lower extremity edema Lungs: CTA B Abd: Soft, nontender, bowel sounds present Extr: good LE perfusion, no cyanosis Results/Medications Reviewed 04/15/22 12:20 PM: Laboratory, Microbiology, Pathology, Radiology, Cardiology, Medications and Transcriptions reviewed Scheduled Meds: amLODIPine 5 mg Oral Daily aspirin 81 mg Oral Daily bacitracin zinc Topical Daily docusate sodium 100 mg Oral Daily enoxaparin (LOVENOX) injection 40 mg Subcutaneous Daily hydrALAZINE 50 mg Oral TID pantoprazole 40 mg Oral Daily polyethylene glycol 17 g Oral Daily sodium chloride (PF) 5 mL Intravenous Q8H EVELYN sodium chloride 1 g Oral TID with meals Continuous Infusions: sodium chloride 0.9 % Results from last 7 days Lab Units 04/15/22 0504/14/22 0504/13/22 0508 WBC K/mcL 2.31* 2.08* 2.02* HGB g/dL 8.6* 8.2* 8.2* HCT % 25.3* 24.3* 24.5* PLT K/mcL 147* 125* 110* Results from last 7 days Lab Units 04/15/22 0512 04/14/22 0521 04/13/22 0508 SODIUM mmol/L 130* 129* 130* POTASSIUM mmol/L 3.9 3.8 4.3 CHLORIDE mmol/L 100 97* 98 BICARB mmol/L 23 23 22 BUN mg/dL 12 10 9 CREATININE mg/dL 0.62* 0.65* 0.62* EGFR mL/min/1.73 m2 97 96 97 GLUCOSE mg/dL 105* 103* 105* CALCIUM mg/dL 8.6 8.6 8.4 MAGNESIUM mg/dL 2.1 2.0 2.0 Urinalysis Physical Therapy PHYSICAL THERAPY TREATMENT NOTE Skilled Therapy Needs After Discharge Anticipate Resolution of Current Assessment Limitations Including: Mechanical Barriers, Social Support Are Skilled Therapy Services Needed After Discharge: Yes Intensity of Skilled Therapy: 2-3 days per week Anticipated Duration of Skilled Therapy: Duration 10 - 30 days DME Recommendation: Wheeled Walker DME Rationale: Patient's condition prevents him/her from accomplishing ADL without recommended equipment, Patient's condition creates an increased risk of safety hazard without recommended equipment Rehab Potential: Good Outcomes Measures Prior Function - Basic Mobility Raw Score: 24 Points Prior Function - Basic Mobility % Impaired: 0% AM-PAC Basic Mobility Raw Score: 19 Points AM-PAC Basic Mobility % Impaired: 36.99% Activity Tolerance Activity Tolerance: Tolerates 20 - 30 min activity with multiple rests Therapy Precautions Orthotic Devices: No Weight Bearing Status: WFL General Rehab Precautions: Fall risk Balance Sitting Balance - Static: Modified independent Sitting Balance - Dynamic: Modified independent Skilled Intervention Provided: verbal cues, demonstration For: LE management, LE positioning, midline orientation, self-monitoring during activity Resulting in: improved trunk stability, improved functional independence Standing Balance - Static: Stand by assist Software Engineer - Standing Static: wheeled walker Standing Balance - Dynamic: Contact guard assist, Stand by assist Software Engineer - Standing Dynamic: wheeled walker Skilled Intervention Provided: verbal cues, demonstration For: LE management, LE positioning, safe use of AD and/or equipment, self-monitoring during activity, midline orientation, fall prevention Resulting in: increased upright tolerance for functional tasks, improved functional independence Bed Mobility Rolling: Head of bed elevated, Modified independent Supine to Sit: Head of bed elevated, Modified independent Sit to Supine: Head of bed elevated, Modified independent Software Engineer: bedrails Skilled Intervention Provided: verbal cues, monitoring patient response with activity For: LE management, LE positioning, midline orientation, logroll technique, efficient movement, fall prevention Resulting in: improved activity tolerance, increased upright tolerance for functional tasks Transfers Sit to Stand: Stand by assist, Contact guard assist Stand Pivot Transfers: Stand by assist Software Engineer: wheeled walker Additional Transfer Trial 2: Yes Sit to Stand Trial 2: Stand by assist Software Engineer Trial 2: wheeled walker Skilled Intervention Provided: verbal cues, tactile cues, monitoring patient response with activity For: LE management, LE positioning, fall prevention, safe use of AD and/or equipment, safety during functional tasks Resulting in: improved activity tolerance, increased upright tolerance for functional tasks Gait/Locomotion Gait Assistance: Stand by assist, Contact guard assist Assistive Device: wheeled walker Distance: 150 Feet Rest Breaks: Yes Rest Break Position: seated Rest Break Duration: 1-2 mins Additional Gait Trial 2: Yes Gait Assistance Trial 2: Stand by assist, Contact guard assist Assistive Device Trial 2: wheeled walker Distance Trial 2: 50 Rest Breaks Trial 2: Yes Rest Break Position Trial 2: seated Rest Break Duration Trial 2: 1-2 mins Pattern: step through, decreased maggy (steps per minute), R decreased step length, L decreased step length, over reliance on upper extremities, forward flexed Weight Bearing Status: able to maintain Environment/Terrain: open/community environment, multiple distractions Skilled Intervention Provided: verbal cues, tactile cues, monitoring patient response with activity For: attention to task, fall prevention, device management and safe use of device, initiation of task, self-monitoring during activity, gait sequence Resulting in: improved activity tolerance, increased upright tolerance for functional tasks Exercise Hip Abduction: x20 Long Arc Quad: x20 Seated Exercises: marching x20, Standing Exercises: sink exercises x15 ea, UBE flexion to improve upright tolerances and functional mobility. Skilled Intervention Provided: verbal cues, tactile cues, monitoring patient response with exercise For: achieving full ROM as tolerated, fall prevention, hold duration, midline orientation, muscle activation, number of repetitions, self-monitoring during activity Resulting in: efficient movement, improved functional strength/ROM, improved safety Home Living Obtained Home Living and PLOF info from: Patient Lives With: Alone Type of Home: House Home Layout: One level (laundry on main floor) Steps to enter home: Yes Rails to enter home: 1 rail Number of stairs to enter home: 3 Bathroom Shower/Tub: Tub/shower unit, Main level, Walk-in bathtub Bathroom Toilet: Standard Bathroom Equipment: Grab bars in shower, Shower chair Mobility Equipment: Cane, Wheeled walker ADL Equipment: Long handled shoe horn Prior Level of Function Receives Help From: Family Level of [place] - Transfers/Ambulation/Mobility: Independent with functional transfers, Independent with household ambulation, Independent with community ambulation (without use of assistive device ORTHOPEDICS NURSE) Level of [place] - ADLs: Independent Level of [place] - Homemaking: Independent Driving: Patient drives For complete objective data, detailed plan of care and patient education refer to: PT Evaluation flowsheet, PT Evaluation and Treatment flowsheet, PT Treatment flowsheet, patient Plan of Care, Plan of Care progress note, and Patient Education. This note stands as the current Discharge Summary upon patient discharge from the hospital or completion of Physical Therapy Plan of Care. Occupational Therapy OCCUPATIONAL THERAPY TREATMENT NOTE Skilled Therapy Needs After Discharge Anticipate Resolution of Current Assessment Limitations Including: Mechanical Barriers, Social Support Are Skilled Therapy Services Needed After Discharge: Yes Intensity of Skilled Therapy: 2-3 days per week Anticipated Duration of Skilled Therapy: Duration 7 - 10 days DME Recommendation: None Rehab Potential: Good Outcomes Measures Prior Function Daily Activity Raw Score: 24 Prior Function Daily Activity % Impaired: 0% AM-PAC Daily Activity Raw Score: 19 AM-PAC Daily Activity % Impaired: 42.80% Activity Tolerance Activity Tolerance: Tolerates 10 - 20 min activity with multiple rests Therapy Precautions Orthotic Devices: No Weight Bearing Status: WFL General Rehab Precautions: Fall risk Cognition Overall Cognitive Status: Within Functional Limits Arousal/Alertness: Appropriate responses to stimuli Orientation Level: Oriented X4 Executive functioning: Insight Safety Judgment: Decreased awareness of need for assistance, Decreased awareness of need for safety Problem Solving: Assistance required to generate solutions Attention: Attends to quiet environment Hearing Status: Hard of hearing Social Interaction: WFL, Irritable ADL Grooming: Stand by assist (Pt stood at sink to wash hands. Demo safe use of FWW, pushing forward to sink and standing within to perform tasks.) Grooming - Skilled Intervention Provided: monitored patient's safety and tolerance Grooming - For: fall prevention Grooming - Resulting In: improved safety Lower Body Dressing: Stand by assist, Increased time to complete (Pt manages bilateral socks seated EOB using figure 4 technique given increased time. Pt uses UEs to assist in elevating LEs into figure 4 position.) Lower Body Dressing - Skilled Intervention Provided: monitored patient's safety & tolerance Lower Body Dressing - For: efficient movement Lower Body Dressing - Resulting In: improved functional independence Toileting: Stand by assist (Pt performs his own posterior librado hygiene seated on toilet with supervision. SBA to manage brief over hips in standing.) Toileting - Skilled Intervention Provided: monitored patient's safety and tolerance Toileting - For: efficient movement, fall prevention Toileting - Resulting In: improved safety, improved functional independence Functional Mobility: Stand by assist, Adaptive equipment, Additional time (Amb to/from bathroom. Pt benefits from min verbal cues to maintain walker in close proximity with turns.) Functional Mobility - Skilled Intervention Provided: verbal cues, monitoring patient response with activity Functional Mobility - For: efficient movement, fall prevention, safe use of AD and/or equipment Functional Mobility - Resulting In: improved safety, decreasing fall risk Bed Mobility Supine to Sit: Modified independent Sit to Supine: Modified independent Functional Transfers Sit to Stand: Stand by assist Bed to Chair Transfers: Stand by assist Toilet Transfers: Stand by assist, to/from toilet, Grab bars Additional Treatment Details Discussion with pt regarding DME for increased safety at home. Pt reports he already has a toilet riser at home and does not like it. Reports vanity is close to toilet and he is able to push up from that to assist with transfers. Pt reports his SERGIO has recently put a shower chair in for him. Denies any equipment needs for discharge. Home Living Obtained Home Living and PLOF info from: Patient Lives With: Alone Type of Home: House Home Layout: One level (laundry on main floor) Steps to enter home: Yes Rails to enter home: 1 rail Number of stairs to enter home: 3 Bathroom Shower/Tub: Tub/shower unit, Main level, Walk-in bathtub Bathroom Toilet: Standard Bathroom Equipment: Grab bars in shower, Shower chair Mobility Equipment: Cane, Wheeled walker ADL Equipment: Long handled shoe horn Prior Level of Function Receives Help From: Family Level of [place] - Transfers/Ambulation/Mobility: Independent with functional transfers, Independent with household ambulation, Independent with community ambulation (without use of assistive device ORTHOPEDICS NURSE) Level of [place] - ADLs: Independent Level of [place] - Homemaking: Independent Driving: Patient drives For complete objective data, detailed plan of care and patient education refer to: OT Evaluation flowsheet, OT Evaluation and Treatment flowsheet, OT Treatment flowsheet, patient Plan of Care, Plan of Care progress note, and Patient Education. This note stands as the current Discharge Summary upon patient discharge from the hospital or completion of Occupational Therapy Plan of Care. [facility] [place] PROGRESS NOTE Assessment and Plan Salvador Glass is a 81 y.o. male patient of Walter Mungiua MD with history of atrial fibrillation, HTN, leukopenia, who presented with fall. Fall: Closed head injury: Left periorbital hematoma Most likely fall secondary to presyncope secondary to slow A. fib. ? Alcohol abuse. CT head, neck, maxillofacial w/o contrast is non-acute except moderate left periorbital soft tissue swelling with mild soft tissue swelling visualized tracking along the left maxillary region CXR non-acute PT/OT Care management Appreciate trauma evaluation none of the lacerations requiring closure at this time Recommended local wound care with Adaptic daily to all this regions PT OT eval for placement Chronic atrial fibrillation w/ slow ventricular response: Most likely contributing to his fall. Patient refusing anticoagulation. EP consulted Micra pacemaker initially planned for Wednesday04/14/2022 after stabilization of patient's clinical condition (hyponatremia, pancytopenia.) Then canceled due to improving bradycardia. Plan for Holter monitor as an outpatient. Follow-up with cardiology/EP. Echocardiogram 04/07/2022 1. Left ventricular systolic function is normal with an ejection fraction by Biplane Method of Discs of 60 %. 2. Indeterminate diastolic function. 3. Right ventricle is moderately enlarged with normal systolic function. 4. There is moderate tricuspid valve regurgitation. 5. There is significant pulmonary hypertension, estimated right ventricle systolic pressure is 71 mmHg assuming a right atrial pressure of 15 mmHg. Hypovolemic hyponatremia: Concerning for related to diuretic use hydrochlorothiazide, Lasix and Aldactone along with alcohol use Nephrology consulted managing IV fluids and electrolyte replacement. Status post tolvaptan. Closely monitor electrolytes Last sodium check 132->129 Nephrology following continue 1500 mL restriction of water, sodium chloride 1 g 3 times a day. Started Lasix 20 mg daily yesterday however sodium dropped to 129, urine studies consistent with natruiresis therefore nephrology discontinue Lasix Pancytopenia probably secondary to alcoholic liver cirrhosis Alcoholic cirrhosis WBC 3.97 --> 2.8 --> 2.5 > 2.1->2 Hgb 9.9->9.5 ..> 8.5 > 8.6->8.2 Platelets 123->130 >115 > 83> 96 > 112->110 Heme/onc consulted, appreciate input, no need for bone marrow biopsy. Hepatitis viral panel unremarkable. Iron study, B12 folate and myeloma panel unremarkable. CT abdomen pelvis shows cirrhotic liver. Previously described 1 cm left liver lesion not visualized. Mild ileus noted. 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 Constipation -Patient on Colace and MiraLAX daily -dulcolax suppository as needed Essential HTN: Hold diuretics. Continue Norvasc and hydralazine GERD: Pantoprazole Physical deconditioning PT OT and social service consulted for discharge plan Family Contact Information Code Status: Full Code - Unverified Quality Measures DVT Prophylaxis: Lovenox Win Catheter: Disposition Awaiting PT OT evaluation Discharge Location: Previous hospitalist discussed in length with daughter at bedside that patient might go home with home health care versus rehabilitation. She is interested in [facility] rehab if rehabilitation recommended by PT. Likely discharge in 24 hours Estimated Discharge Date: TBD Outpatient Testing: TBD Subjective Patient sitting in bed working with physical therapy following commands. Denies any headache or shortness of breath Denies chest pain, denies shortness of breath Review of Systems All systems have been reviewed and are negative except as noted in HPI or below Objective BP (!) 127/59 Pulse (!) 55 Temp 97.6 F (36.4 C) (Oral) Resp 16 Ht 6' Wt 82.9 kg (182 lb 12.2 oz) SpO2 97% BMI 24.79 kg/m Physical Examination General Appearance: alert; acute on chronically ill appearing; in no acute distress HEENT: Head-left periorbital hematoma. Eyes- EOMI, sclera anicteric; Ears- hearing intact; Nose- no nasal discharge; Throat- mucous membranes moist Cardiovascular: regular rate and rhythm; normal S1, S2; no murmurs, rubs, clicks or gallops; no peripheral edema Respiratory: Diminished air entry bilateral; without wheezes, rales or rhonchi; on room air Abdomen: soft, non-tender, non-distended; positive bowel sounds Neurological: oriented x 3; normal speech; no focal findings or movement disorder noted Musculoskeletal: no significant deformity or tenderness to palpation Skin: skin tear of his right elbow, right hand, left hand, left cheek, and an abrasion to his left forehead covered cost appear to be dry Psych: normal mood and affect Results/Medications Reviewed 04/14/2022 12:04 PM Laboratory, Medications, and Transcriptions NEPHROLOGY PROGRESS [facility] Patient Name: Salvador Glass Admit Date: [id number] MR #: [id number] : 1940 ASSESSMENT/PLAN: Hyponatremia: hypovolemic hyponatremia related to diuretic use (hydrochlorothiazide, Lasix, and Aldactone). -Sodium kelsey 119 on April 06. Has received tolvaptan with last dose on April 11. -Cont 1500 ml fluid restriction and sodium chloride 1 g 3 times a day. Started Lasix 20mg daily yesterday and sodium now 129. Urine studies consistent with natriuresis. We will discontinue Lasix today. Continue the free water restriction. 2. Severe pulmonary hypertension, moderate tricuspid valve regurgitation -Euvolemic on exam. Stopping lasix as above. Subjective: Denies any new complaint. Review of Systems: ROS otherwise reviewed and negative Physical Examination: Vitals: Vitals: 04/14/22 0054 04/14/22 0437 04/14/22 0826 04/14/22 0900 BP: (!) 120/52 (!) 136/55 (!) 127/59 BP Location: Patient Position: Pulse: 63 65 (!) 55 Resp: 16 16 14 16 Temp: 98.1 F (36.7 C) 98.7 F (37.1 C) 97.6 F (36.4 C) TempSrc: Oral Oral Oral SpO2: 97% 97% 97% Weight: Height: Intake/Output last 3 shifts: Intake/Output Summary (Last 24 hours) at 04/14/2022 1147 Last data filed at 04/14/2022 0745 Gross per 24 hour Intake 240 ml Output 925 ml Net -685 ml I/O last 3 completed shifts: In: 1060 [P.O.:1060] Out: 775 [Urine:775] General: No acute distress HEENT: Anicteric Neck: Supple CV: Regular rate, no murmurs or rubs. No lower extremity edema Lungs: CTA B Abd: Soft, nontender, bowel sounds present Extr: good LE perfusion, no cyanosis Results/Medications Reviewed 04/14/22 11:47 AM: Laboratory, Microbiology, Pathology, Radiology, Cardiology, Medications and Transcriptions reviewed Scheduled Meds: amLODIPine 5 mg Oral Daily aspirin 81 mg Oral Daily bacitracin zinc Topical Daily docusate sodium 100 mg Oral Daily enoxaparin (LOVENOX) injection 40 mg Subcutaneous Daily hydrALAZINE 50 mg Oral TID pantoprazole 40 mg Oral Daily polyethylene glycol 17 g Oral Daily sodium chloride (PF) 5 mL Intravenous Q8H EVELYN sodium chloride 1 g Oral TID with meals Continuous Infusions: sodium chloride 0.9 % Results from last 7 days Lab Units 04/14/22 0504/13/22 0508 04/12/22 0635 WBC K/mcL 2.08* 2.02* 2.15* HGB g/dL 8.2* 8.2* 8.6* HCT % 24.3* 24.5* 25.5* PLT K/mcL 125* 110* 112* Results from last 7 days Lab Units 04/14/22 0521 04/13/22 0508 04/12/22 0635 SODIUM mmol/L 129* 130* 132* 132* POTASSIUM mmol/L 3.8 4.3 4.4 CHLORIDE mmol/L 97* 98 101 BICARB mmol/L 23 22 24 BUN mg/dL 10 9 10 CREATININE mg/dL 0.65* 0.62* 0.71* EGFR mL/min/1.73 m2 96 97 93 GLUCOSE mg/dL 103* 105* 106* CALCIUM mg/dL 8.6 8.4 8.9 MAGNESIUM mg/dL 2.0 2.0 2.2 Urinalysis Physical Therapy PHYSICAL THERAPY TREATMENT NOTE Skilled Therapy Needs After Discharge Anticipate Resolution of Current Assessment Limitations Including: Pain, Mechanical Barriers Are Skilled Therapy Services Needed After Discharge: Yes Intensity of Skilled Therapy: 2-3 days per week Anticipated Duration of Skilled Therapy: Duration 10 - 30 days DME Recommendation: Wheeled Walker DME Rationale: Patient's condition prevents him/her from accomplishing ADL without recommended equipment, Patient's condition creates an increased risk of safety hazard without recommended equipment Rehab Potential: Good Outcomes Measures Prior Function - Basic Mobility Raw Score: 24 Points Prior Function - Basic Mobility % Impaired: 0% AM-PAC Basic Mobility Raw Score: 17 Points AM-PAC Basic Mobility % Impaired: 43.83% Activity Tolerance Activity Tolerance: Tolerates 20 - 30 min activity with multiple rests Therapy Precautions Orthotic Devices: No Weight Bearing Status: WFL General Rehab Precautions: Fall risk Balance Sitting Balance - Static: Modified independent Sitting Balance - Dynamic: Modified independent Skilled Intervention Provided: verbal cues, tactile cues, demonstration, patient education For: LE management, LE positioning, self-monitoring during activity, safe use of AD and/or equipment Resulting in: improved activity tolerance, increased upright tolerance for functional tasks, improved trunk stability, improved functional independence Standing Balance - Static: Stand by assist Software Engineer - Standing Static: wheeled walker Standing Balance - Dynamic: Contact guard assist, Stand by assist Software Engineer - Standing Dynamic: wheeled walker Skilled Intervention Provided: verbal cues, tactile cues, demonstration, patient education For: LE management, UE management, LE positioning, safe use of AD and/or equipment, self-monitoring during activity Resulting in: improved activity tolerance, increased upright tolerance for functional tasks Bed Mobility Rolling: Supervision, Head of bed elevated Supine to Sit: Supervision, Head of bed elevated Sit to Supine: Supervision, Head of bed elevated Software Engineer: bedrails Skilled Intervention Provided: verbal cues, tactile cues, monitoring patient response with activity For: LE management, LE positioning, safety during functional tasks, self-monitoring during activity Resulting in: improved activity tolerance, increased upright tolerance for functional tasks Transfers Sit to Stand: Contact guard assist Stand Pivot Transfers: Contact guard assist Software Engineer: wheeled walker Additional Transfer Trial 2: Yes Sit to Stand Trial 2: Contact guard assist Software Engineer Trial 2: wheeled walker Skilled Intervention Provided: verbal cues, tactile cues, monitoring patient response with activity For: LE management, LE positioning, safe use of AD and/or equipment, self-monitoring during activity Resulting in: improved activity tolerance, improved performance, increased upright tolerance for functional tasks Gait/Locomotion Gait Assistance: Contact guard assist Assistive Device: wheeled walker Distance: 125 Feet Rest Breaks: Yes Rest Break Position: seated Rest Break Duration: 1-2 mins Pattern: step through, R decreased step length, L decreased step length, decreased maggy (steps per minute), over reliance on upper extremities Weight Bearing Status: able to maintain Environment/Terrain: open/community environment, multiple distractions Skilled Intervention Provided: verbal cues, tactile cues, monitoring patient response with activity For: device management and safe use of device, fall prevention, gait sequence, self-monitoring during activity Resulting in: improved activity tolerance, increased upright tolerance for functional tasks Exercise Ankle Pumps: x20 Long Arc Quad: x20 Seated Exercises: marching x15, Standing Exercises: calf raises x15, mini squats x15, hamstring curls x15, STS transfers x5 to improve proper hand placement and safety with functional mobility. Skilled Intervention Provided: verbal cues, tactile cues, patient education For: achieving full ROM as tolerated, number of repetitions, fall prevention Resulting in: improved functional strength/ROM, improved performance Additional Treatment Details pt participated in therapeutic exercises to improve LE strengthening and functional mobility. pt required min cues for proper hand placement with STS transfers with fair carryover. Home Living Obtained Home Living and PLOF info from: Patient Lives With: Alone Type of Home: House Home Layout: One level (laundry on main floor) Steps to enter home: Yes Rails to enter home: 1 rail Number of stairs to enter home: 3 Bathroom Shower/Tub: Tub/shower unit, Main level, Walk-in bathtub Bathroom Toilet: Standard Bathroom Equipment: Grab bars in shower, Shower chair Mobility Equipment: Cane, Wheeled walker ADL Equipment: Long handled shoe horn Prior Level of Function Receives Help From: Family Level of [place] - Transfers/Ambulation/Mobility: Independent with functional transfers, Independent with household ambulation, Independent with community ambulation (without use of assistive device ORTHOPEDICS NURSE) Level of [place] - ADLs: Independent Level of [place] - Homemaking: Independent Driving: Patient drives For complete objective data, detailed plan of care and patient education refer to: PT Evaluation flowsheet, PT Evaluation and Treatment flowsheet, PT Treatment flowsheet, patient Plan of Care, Plan of Care progress note, and Patient Education. This note stands as the current Discharge Summary upon patient discharge from the hospital or completion of Physical Therapy Plan of Care. 04/14/22 9:19am - Called to [facility] who state they received the referral and should be able to accept pt. Will call if anything changes [facility] agency: Accepted or Pending Name of agency: Accepted - [facility] Referrals sent to: (names of agencies) [facility] for the following services: yes - SN/PT/OT Verify the demographics (residential address) yes What is the primary number to reach you? [phone] Who is your family physician/primary care physician? Dr. Walter Munguia [phone] Do you have a caregiver and/or teachable caregiver (list relationship, name & phone #)? lives alone Estimated Discharge Date (EDIS): 04/14 [facility] [place] PROGRESS NOTE Assessment and Plan Salvador Glass is a 81 y.o. male patient of Walter Munguia MD with history of atrial fibrillation, HTN, leukopenia, who presented with fall. Fall: Closed head injury: Left periorbital hematoma Most likely fall secondary to presyncope secondary to slow A. fib. ? Alcohol abuse. CT head, neck, maxillofacial w/o contrast is non-acute except moderate left periorbital soft tissue swelling with mild soft tissue swelling visualized tracking along the left maxillary region CXR non-acute PT/OT Care management Appreciate trauma evaluation none of the lacerations requiring closure at this time Recommended local wound care with Adaptic daily to all this regions PT OT eval for placement Chronic atrial fibrillation w/ slow ventricular response: Most likely contributing to his fall. Patient refusing anticoagulation. EP consulted Micra pacemaker initially planned for Wednesday04/14/2022 after stabilization of patient's clinical condition (hyponatremia, pancytopenia.) Then canceled due to improving bradycardia. Plan for Holter monitor as an outpatient. Follow-up with cardiology/EP. Echocardiogram 04/07/2022 1. Left ventricular systolic function is normal with an ejection fraction by Biplane Method of Discs of 60 %. 2. Indeterminate diastolic function. 3. Right ventricle is moderately enlarged with normal systolic function. 4. There is moderate tricuspid valve regurgitation. 5. There is significant pulmonary hypertension, estimated right ventricle systolic pressure is 71 mmHg assuming a right atrial pressure of 15 mmHg. Hypovolemic hyponatremia: Concerning for related to diuretic use hydrochlorothiazide, Lasix and Aldactone along with alcohol use Nephrology consulted managing IV fluids and electrolyte replacement. Status post tolvaptan. Closely monitor electrolytes Last sodium check 132 Pancytopenia probably secondary to alcoholic liver cirrhosis Alcoholic cirrhosis WBC 3.97 --> 2.8 --> 2.5 > 2.1->2 Hgb 9.9->9.5 ..> 8.5 > 8.6->8.2 Platelets 123->130 >115 > 83> 96 > 112->110 Heme/onc consulted, appreciate input, no need for bone marrow biopsy. Hepatitis viral panel unremarkable. Iron study, B12 folate and myeloma panel unremarkable. CT abdomen pelvis shows cirrhotic liver. Previously described 1 cm left liver lesion not visualized. Mild ileus noted. 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 Constipation -Patient on Colace and MiraLAX daily -dulcolax suppository as needed Essential HTN: Hold diuretics. Continue Norvasc and hydralazine GERD: Pantoprazole Physical deconditioning PT OT and social service consulted for discharge plan Family Contact Information Code Status: Full Code - Unverified Quality Measures DVT Prophylaxis: Lovenox Win Catheter: Disposition Awaiting PT OT evaluation Discharge Location: Previous hospitalist discussed in length with daughter at bedside that patient might go home with home health care versus rehabilitation. She is interested in [facility] rehab if rehabilitation recommended by PT. Estimated Discharge Date: TBD Outpatient Testing: TBD Subjective Patient sitting in bed working with physical therapy following commands. Denies any headache or shortness of breath Denies chest pain, denies shortness of breath Review of Systems All systems have been reviewed and are negative except as noted in HPI or below Objective BP (!) 121/54 Pulse (!) 51 Temp 97.5 F (36.4 C) (Oral) Resp 18 Ht 6' Wt 82.9 kg (182 lb 12.2 oz) SpO2 99% BMI 24.79 kg/m Physical Examination General Appearance: alert; acute on chronically ill appearing; in no acute distress HEENT: Head-left periorbital hematoma. Eyes- EOMI, sclera anicteric; Ears- hearing intact; Nose- no nasal discharge; Throat- mucous membranes moist Cardiovascular: regular rate and rhythm; normal S1, S2; no murmurs, rubs, clicks or gallops; no peripheral edema Respiratory: Diminished air entry bilateral; without wheezes, rales or rhonchi; on room air Abdomen: soft, non-tender, non-distended; positive bowel sounds Neurological: oriented x 3; normal speech; no focal findings or movement disorder noted Musculoskeletal: no significant deformity or tenderness to palpation Skin: skin tear of his right elbow, right hand, left hand, left cheek, and an abrasion to his left forehead covered cost appear to be dry Psych: normal mood and affect Results/Medications Reviewed 04/13/2022 4:27 PM Laboratory, Medications, and Transcriptions Nutrition Care Initial Assessment Reason for visit: Dietitian Screen Nutrition Diagnosis: No Nutrition Needs at this time. Nutrition Intervention/Prescription: Continue PO diet Diet: Regular Diet, 1500mL fluid restriction Oral nutrition supplement: none Tube Feeding: n/a Nutrition Goals: PO intake > 75% most meals Start Date:04/13/2022 Expected End Date:04/23/2022 Nutrition Education: No needs at this time Assessment: Pertinent clinical information: s/p fall. Scheduled for pacemaker placement. Past Medical History: Diagnosis Date Arrhythmia A Fib Bradycardia Hypertension Leukopenia Mild anemia Psoriasis Renal failure Height: 6' Current weight: 82.9 kg (182 lb 12.2 oz) BMI Body mass index is 24.79 kg/m . Weight hx: Wt Readings from Last 5 Encounters: 04/07/22 82.9 kg (182 lb 12.2 oz) Current diet order: regular, 1500mL fluid restriction Current EN order: none Current supplements: n/a Recent intake: 75%-100%. Current intake Likely meets estimated needs. Patient/family comments: n/a, pt resting, did not disturb. Difficulty Chewing/Swallowing: No Skin Integrity: Intact GI Function: WNL Physical Appearance: HARRIS Labs: Recent Labs 04/13/22 0508 NA 130* K 4.3 BICARB 22 CL 98 GLUCOSE 105* BUN 9 CREATININE 0.62* MG 2.0 Scheduled Meds: amLODIPine 5 mg Oral Daily aspirin 81 mg Oral Daily bacitracin zinc Topical Daily docusate sodium 100 mg Oral Daily enoxaparin (LOVENOX) injection 40 mg Subcutaneous Daily furosemide 20 mg Oral Daily hydrALAZINE 50 mg Oral TID pantoprazole 40 mg Oral Daily polyethylene glycol 17 g Oral Daily sodium chloride (PF) 5 mL Intravenous Q8H EVELYN sodium chloride 1 g Oral TID with meals Continuous Infusions: sodium chloride 0.9 % ROHIT Perez, ROSEANNAN, LD Office NEPHROLOGY PROGRESS [facility] Patient Name: Salvador Glass Admit Date: [id number] MR #: [id number] : 1940 ASSESSMENT/PLAN: Hyponatremia: hypovolemic hyponatremia related to diuretic use (hydrochlorothiazide, Lasix, and Aldactone). -Sodium kelsey 119 on April 06. Now 130. Has received tolvaptan with last dose on April 11. -Urine osmo 425. Urine Sodium 73. -Will place on a 1500 ml fluid restriction. -Continue on sodium chloride 1 g 3 times a day and start laix 20mg daily. If sodium improves tomorrow will decrease sodium chloride dosing. 2. Severe pulmonary hypertension, moderate tricuspid valve regurgitation - adding lasix as above. Subjective: Denies any new complaint. Patient reports increase in urine output. Appetite remains marginal. Family member at bedside Review of Systems: ROS otherwise reviewed and negative Physical Examination: Vitals: Vitals: 04/12/22 2300 04/13/22 0410 04/13/22 0723 04/13/22 0900 BP: 122/63 (!) 128/48 BP Location: Left arm Patient Position: Sitting Pulse: (!) 55 Resp: 18 18 18 18 Temp: 98.4 F (36.9 C) 98 F (36.7 C) TempSrc: Oral Oral SpO2: 97% 97% Weight: Height: Intake/Output last 3 shifts: Intake/Output Summary (Last 24 hours) at 04/13/2022 1301 Last data filed at 04/13/2022 0146 Gross per 24 hour Intake 340 ml Output 500 ml Net -160 ml I/O last 3 completed shifts: In: 1540 [P.O.:1540] Out: 1175 [Urine:1175] General: No acute distress HEENT: Anicteric Neck: Supple CV: Regular rate, no murmurs or rubs. No lower extremity edema Lungs: CTA B Abd: Soft, nontender, bowel sounds present Extr: good LE perfusion, no cyanosis Results/Medications Reviewed 04/13/22 1:01 PM: Laboratory, Microbiology, Pathology, Radiology, Cardiology, Medications and Transcriptions reviewed Scheduled Meds: amLODIPine 5 mg Oral Daily aspirin 81 mg Oral Daily bacitracin zinc Topical Daily docusate sodium 100 mg Oral Daily enoxaparin (LOVENOX) injection 40 mg Subcutaneous Daily hydrALAZINE 50 mg Oral TID pantoprazole 40 mg Oral Daily polyethylene glycol 17 g Oral Daily sodium chloride (PF) 5 mL Intravenous Q8H EVELYN sodium chloride 1 g Oral TID with meals Continuous Infusions: sodium chloride 0.9 % Results from last 7 days Lab Units 04/13/22 0508 04/12/22 0635 04/11/22 0535 WBC K/mcL 2.02* 2.15* 2.55* HGB g/dL 8.2* 8.6* 8.6* HCT % 24.5* 25.5* 24.2* PLT K/mcL 110* 112* 96* Results from last 7 days Lab Units 04/13/22 0508 04/12/22 0635 04/11/22 2340 04/11/22 1139 04/11/22 0535 04/07/22 1208 04/07/22 0506 SODIUM mmol/L 130* 132* 132* 130* < > 128* 128* < > 121* 121* POTASSIUM mmol/L 4.3 4.4 -- -- 3.6 < > 4.4 CHLORIDE mmol/L 98 101 -- -- 96* < > 90* BICARB mmol/L 22 24 -- -- 22 < > 16* BUN mg/dL 9 10 -- -- 9 < > 8 CREATININE mg/dL 0.62* 0.71* -- -- 0.74* < > 0.61* EGFR mL/min/1.73 m2 97 93 -- -- 92 < > 98 GLUCOSE mg/dL 105* 106* -- -- 104* < > 92 CALCIUM mg/dL 8.4 8.9 -- -- 8.8 < > 8.3* MAGNESIUM mg/dL 2.0 2.2 -- -- 2.2 < > 1.7 PHOSPHORUS mg/dL -- -- -- -- -- -- 2.9 < > = values in this interval not displayed. Urinalysis Results from last 7 days Lab Units 04/07/22 0039 COLOR, UR Yellow CLARITY, UR Clear SPEC GRAV 1.013 PH, UR 5.5 GLUCOSE, UR mg/dL Negative KETONES, UR mg/dL Trace* BILIRUBIN, UR Negative UROBILINOGEN, UR mg/dL <2.0 BLOOD, UR Negative NITRITE, UR Negative LEUK BOLIVAR, UR Negative MUCUS, UR /lpf Rare WBC, UR /hpf <1 BACTERIA, UR /hpf None Seen HYALINE CASTS /lpf 0-2 CREATININE UR mg/dL 53.1 Physical Therapy PHYSICAL THERAPY TREATMENT NOTE Skilled Therapy Needs After Discharge Anticipate Resolution of Current Assessment Limitations Including: Pain, Mechanical Barriers Are Skilled Therapy Services Needed After Discharge: Yes Intensity of Skilled Therapy: 2-3 days per week Anticipated Duration of Skilled Therapy: Duration 10 - 30 days DME Recommendation: Wheeled Walker, Tub seat DME Rationale: Patient's condition prevents him/her from accomplishing ADL without recommended equipment, Patient's condition creates an increased risk of safety hazard without recommended equipment Rehab Potential: Good Outcomes Measures Prior Function - Basic Mobility Raw Score: 24 Points Prior Function - Basic Mobility % Impaired: 0% AM-PAC Basic Mobility Raw Score: 17 Points AM-PAC Basic Mobility % Impaired: 43.83% Activity Tolerance Activity Tolerance: Tolerates 20 - 30 min activity with multiple rests Therapy Precautions Orthotic Devices: No Weight Bearing Status: WFL General Rehab Precautions: Fall risk Balance Sitting Balance - Static: Modified independent Sitting Balance - Dynamic: Modified independent Skilled Intervention Provided: verbal cues, visual cues, demonstration, patient education For: LE management, LE positioning, self-monitoring during activity Resulting in: improved activity tolerance, improved functional independence Standing Balance - Static: Contact guard assist, Stand by assist Software Engineer - Standing Static: wheeled walker Standing Balance - Dynamic: Contact guard assist Software Engineer - Standing Dynamic: wheeled walker Skilled Intervention Provided: verbal cues, tactile cues, demonstration, patient education For: LE management, LE positioning, fall prevention, safe use of AD and/or equipment, self-monitoring during activity Resulting in: improved activity tolerance, improved functional independence Bed Mobility Rolling: Stand by assist, Supervision, Head of bed elevated Supine to Sit: Stand by assist, Supervision, Head of bed elevated Sit to Supine: Stand by assist, Supervision, Head of bed elevated Software Engineer: bedrails Skilled Intervention Provided: verbal cues, monitoring patient response with activity For: LE management, LE positioning, self-monitoring during activity, safe use of bedrails and/or equipment Resulting in: improved activity tolerance, improved functional independence, increased upright tolerance for functional tasks Transfers Sit to Stand: Contact guard assist, Stand by assist Stand Pivot Transfers: Stand by assist Software Engineer: wheeled walker Software Engineer Trial 2: wheeled walker Skilled Intervention Provided: verbal cues, visual cues, monitoring patient response with activity For: LE management, LE positioning, safe use of AD and/or equipment, self-monitoring during activity Resulting in: improved activity tolerance, increased upright tolerance for functional tasks Gait/Locomotion Gait Assistance: Contact guard assist, Stand by assist Assistive Device: wheeled walker Distance: 125 Feet Rest Breaks: Yes Rest Break Position: seated Rest Break Duration: 1-2 mins Pattern: step through, R decreased step length, L decreased step length, decreased maggy (steps per minute) Weight Bearing Status: able to maintain Environment/Terrain: open/community environment, multiple distractions Skilled Intervention Provided: verbal cues, monitoring patient response with activity For: attention to task, fall prevention, gait sequence, self-monitoring during activity Resulting in: improved activity tolerance, improved functional independence, increased upright tolerance for functional tasks Exercise Ankle Pumps: x20 Long Arc Quad: x15 Seated Exercises: marching x15, heel to toes x15 Standing Exercises: calf raises x15, hip abduction x15, hamstring curls x15, Skilled Intervention Provided: verbal cues, tactile cues, monitoring patient response with exercise, patient education For: achieving full ROM as tolerated, number of repetitions Resulting in: efficient movement, improved functional strength/ROM, improved safety Home Living Obtained Home Living and PLOF info from: Patient Lives With: Alone Type of Home: House Home Layout: One level (laundry on main floor) Steps to enter home: Yes Rails to enter home: 1 rail Number of stairs to enter home: 3 Bathroom Shower/Tub: Tub/shower unit, Main level, Walk-in bathtub Bathroom Toilet: Standard Bathroom Equipment: Grab bars in shower, Shower chair Mobility Equipment: Cane, Wheeled walker ADL Equipment: Long handled shoe horn Prior Level of Function Receives Help From: Family Level of [place] - Transfers/Ambulation/Mobility: Independent with functional transfers, Independent with household ambulation, Independent with community ambulation (without use of assistive device ORTHOPEDICS NURSE) Level of [place] - ADLs: Independent Level of [place] - Homemaking: Independent Driving: Patient drives For complete objective data, detailed plan of care and patient education refer to: PT Evaluation flowsheet, PT Evaluation and Treatment flowsheet, PT Treatment flowsheet, patient Plan of Care, Plan of Care progress note, and Patient Education. This note stands as the current Discharge Summary upon patient discharge from the hospital or completion of Physical Therapy Plan of Care. NEPHROLOGY PROGRESS [facility] Patient Name: Salvador Glass Admit Date: [id number] MR #: [id number] : 1940 ASSESSMENT/PLAN: Hyponatremia: hypovolemic hyponatremia related to diuretic use (hydrochlorothiazide, Lasix, and Aldactone). -Sodium kelsey 119 on April 06. Now 130. Has received tolvaptan with last dose on April 11. -Urine osmo 425. Urine Sodium 73. -Will place on a 1500 ml fluid restriction. -Continue on sodium chloride 1 g 3 times a day. 2. Severe pulmonary hypertension, moderate tricuspid valve regurgitation -Given volume status can continue to hold diuretic therapy Subjective: Denies any new complaint. Patient reports increase in urine output. Appetite remains marginal. Family member at bedside Review of Systems: ROS otherwise reviewed and negative Physical Examination: Vitals: Vitals: 04/12/22 2300 04/13/22 0410 04/13/22 0723 04/13/22 0900 BP: 122/63 (!) 128/48 BP Location: Left arm Patient Position: Sitting Pulse: (!) 55 Resp: 18 18 18 18 Temp: 98.4 F (36.9 C) 98 F (36.7 C) TempSrc: Oral Oral SpO2: 97% 97% Weight: Height: Intake/Output last 3 shifts: Intake/Output Summary (Last 24 hours) at 04/13/2022 1218 Last data filed at 04/13/2022 0146 Gross per 24 hour Intake 1060 ml Output 500 ml Net 560 ml I/O last 3 completed shifts: In: 1540 [P.O.:1540] Out: 1175 [Urine:1175] General: No acute distress HEENT: Anicteric Neck: Supple CV: Regular rate, no murmurs or rubs. No lower extremity edema Lungs: CTA B Abd: Soft, nontender, bowel sounds present Extr: good LE perfusion, no cyanosis Results/Medications Reviewed 04/13/22 12:18 PM: Laboratory, Microbiology, Pathology, Radiology, Cardiology, Medications and Transcriptions reviewed Scheduled Meds: amLODIPine 5 mg Oral Daily aspirin 81 mg Oral Daily bacitracin zinc Topical Daily docusate sodium 100 mg Oral Daily enoxaparin (LOVENOX) injection 40 mg Subcutaneous Daily hydrALAZINE 50 mg Oral TID pantoprazole 40 mg Oral Daily polyethylene glycol 17 g Oral Daily sodium chloride (PF) 5 mL Intravenous Q8H EVELYN sodium chloride 1 g Oral TID with meals Continuous Infusions: sodium chloride 0.9 % Results from last 7 days Lab Units 04/13/22 0508 04/12/22 0635 04/11/22 0535 WBC K/mcL 2.02* 2.15* 2.55* HGB g/dL 8.2* 8.6* 8.6* HCT % 24.5* 25.5* 24.2* PLT K/mcL 110* 112* 96* Results from last 7 days Lab Units 04/13/22 0508 04/12/22 0635 04/11/22 2340 04/11/22 1139 04/11/22 0535 04/07/22 1208 04/07/22 0506 SODIUM mmol/L 130* 132* 132* 130* < > 128* 128* < > 121* 121* POTASSIUM mmol/L 4.3 4.4 -- -- 3.6 < > 4.4 CHLORIDE mmol/L 98 101 -- -- 96* < > 90* BICARB mmol/L 22 24 -- -- 22 < > 16* BUN mg/dL 9 10 -- -- 9 < > 8 CREATININE mg/dL 0.62* 0.71* -- -- 0.74* < > 0.61* EGFR mL/min/1.73 m2 97 93 -- -- 92 < > 98 GLUCOSE mg/dL 105* 106* -- -- 104* < > 92 CALCIUM mg/dL 8.4 8.9 -- -- 8.8 < > 8.3* MAGNESIUM mg/dL 2.0 2.2 -- -- 2.2 < > 1.7 PHOSPHORUS mg/dL -- -- -- -- -- -- 2.9 < > = values in this interval not displayed. Urinalysis Results from last 7 days Lab Units 04/07/22 0039 COLOR, UR Yellow CLARITY, UR Clear SPEC GRAV 1.013 PH, UR 5.5 GLUCOSE, UR mg/dL Negative KETONES, UR mg/dL Trace* BILIRUBIN, UR Negative UROBILINOGEN, UR mg/dL <2.0 BLOOD, UR Negative NITRITE, UR Negative LEUK BOLIVAR, UR Negative MUCUS, UR /lpf Rare WBC, UR /hpf <1 BACTERIA, UR /hpf None Seen HYALINE CASTS /lpf 0-2 CREATININE UR mg/dL 53.1 Care Management Progress Note Date: 04/13/2022 Time: 8:55 AM Patient Name: Salvador Glass Date of : 1940 Discharge Plan: Discharging Transportation Plan: Discharge Plan Status: Per notes, micra pacemaker cancelled for tomorrow. Will await updated therapy notes as [facility] inpatient rehab versus home health care has been discussed. 1349- Secure chat sent to Brii with physical therapy regarding the recommendation of 5-7x per week. Patient walking 125ft. Did voice concern patient has managed care plan and unsure insurance would approve patient to go anywhere. 1423- In to see patient to discuss discharge plan. Patient was sleeping soundly. Did not wake when entered room or called name next to bed. Will attempt to see patient again as time allows. 1455- Secure chat received from Brii with physical therapy. Patient discussed with physical therapist and patient should be appropriate for home health care. Recommendation changed to 2-3x per week. 1517- In to see patient. Discussed discharge plan. Patient confirmed he feels strong enough to go home and no longer requires rehabilitation in a facility. Discussed home health care for continued therapy. Overview of services and frequency discussed. Patient in agreement for services. Offered [facility] list to review. Patient reports he has no preference as long as it's in-network with his insurance. Patient reports he has proper equipment in place. No other needs identified. Consult placed to the home health hub. Spiritual Care Progress Note Completed by: Eliu Mahajan Person(s) Present During this Visit: Patient Time Spent in Direct Patient Care: 15 Narrative: The dot compliance manager visited the patient while rounding, in order to provide spiritual and emotional support. I introduced myself and explained the role of the dot compliance manager. Pt stated that either his daughter or son visit him everyday. Pt was in good spirits and expressed no needs at this time. Pt is aware to contact pastoral care with any needs. Pastoral Care will continue to be available to provide spiritual and emotional support as needed. Patients Response to Pastoral Care: Planning for Future Visits: PRN, Pt aware to contact Rehabilitation Inspector as needed 04/12/22 2046 Visit Background Visit With Patient Visit By Press Operator [employer] Visit Progression Introduction Visit Requested By Rehabilitation Inspector Initiated Visit Source Rehabilitation Inspector Initiated Visit Type Inpatient;Rounding Visit Circumstances and Events Routine Visit Visit Length (minutes) 15 Visit Planning PRN;Pt aware to contact Rehabilitation Inspector as needed Spiritual Assessment Not assessed during visit Mosque Assessment Not assessed during this visit Family assessment provided? Unable to asess during this visit Rev. Eliu Mahajan [employer] [facility] Pastoral Care Department [facility] [place] PROGRESS NOTE Assessment and Plan Salvador Glass is a 81 y.o. male patient of Walter Munguia MD with history of atrial fibrillation, HTN, leukopenia, who presented with fall. Fall: Closed head injury: Left periorbital hematoma Most likely fall secondary to presyncope secondary to slow A. fib. ? Alcohol abuse. CT head, neck, maxillofacial w/o contrast is non-acute except moderate left periorbital soft tissue swelling with mild soft tissue swelling visualized tracking along the left maxillary region CXR non-acute PT/OT Care management Appreciate trauma evaluation none of the lacerations requiring closure at this time Recommended local wound care with Adaptic daily to all this regions Chronic atrial fibrillation w/ slow ventricular response: Most likely contributing to his fall. Patient refusing anticoagulation. EP consulted Micra pacemaker initially planned for Wednesday04/14/2022 after stabilization of patient's clinical condition (hyponatremia, pancytopenia.) Then canceled due to improving bradycardia. Plan for Holter monitor as an outpatient. Follow-up with cardiology/EP. Echocardiogram 04/07/2022 1. Left ventricular systolic function is normal with an ejection fraction by Biplane Method of Discs of 60 %. 2. Indeterminate diastolic function. 3. Right ventricle is moderately enlarged with normal systolic function. 4. There is moderate tricuspid valve regurgitation. 5. There is significant pulmonary hypertension, estimated right ventricle systolic pressure is 71 mmHg assuming a right atrial pressure of 15 mmHg. Hypovolemic hyponatremia: Concerning for related to diuretic use hydrochlorothiazide, Lasix and Aldactone along with alcohol use Nephrology consulted managing IV fluids and electrolyte replacement. Status post tolvaptan. Closely monitor electrolytes Last sodium check 132 Pancytopenia probably secondary to alcoholic liver cirrhosis Alcoholic cirrhosis WBC 3.97 --> 2.8 --> 2.5 > 2.1 Hgb 9.9->9.5 ..> 8.5 > 8.6 Platelets 123->130 >115 > 83> 96 > 112 Heme/onc consulted, appreciate input, no need for bone marrow biopsy. Hepatitis viral panel unremarkable. Iron study, B12 folate and myeloma panel unremarkable. CT abdomen pelvis shows cirrhotic liver. Previously described 1 cm left liver lesion not visualized. Mild ileus noted. 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 Constipation -Patient on Colace and MiraLAX daily -dulcolax suppository as needed Essential HTN: Hold diuretics. Continue Norvasc and hydralazine GERD: Pantoprazole Physical deconditioning PT OT and social service consulted for discharge plan Family Contact Information Code Status: Full Code - Unverified Quality Measures DVT Prophylaxis: Win Catheter: Disposition Awaiting PT OT evaluation Discharge Location: Discussed in length with daughter at bedside that patient might go home with home health care versus rehabilitation. She is interested in [facility] rehab if rehabilitation recommended by PT. Estimated Discharge Date: TBD Outpatient Testing: TBD Subjective Patient resting comfortably Denies any headache or shortness of breath Discussed with daughter at bedside. Review of Systems All systems have been reviewed and are negative except as noted in HPI or below Objective BP 132/64 Pulse (!) 58 Temp 97.5 F (36.4 C) (Oral) Resp 16 Ht 6' Wt 82.9 kg (182 lb 12.2 oz) SpO2 99% BMI 24.79 kg/m Physical Examination General Appearance: alert; acute on chronically ill appearing; in no acute distress HEENT: Head-left periorbital hematoma. Eyes- EOMI, sclera anicteric; Ears- hearing intact; Nose- no nasal discharge; Throat- mucous membranes moist Cardiovascular: regular rate and rhythm; normal S1, S2; no murmurs, rubs, clicks or gallops; no peripheral edema Respiratory: Diminished air entry bilateral; without wheezes, rales or rhonchi; on room air Abdomen: soft, non-tender, non-distended; positive bowel sounds Neurological: oriented x 3; normal speech; no focal findings or movement disorder noted Musculoskeletal: no significant deformity or tenderness to palpation Skin: skin tear of his right elbow, right hand, left hand, left cheek, and an abrasion to his left forehead covered cost appear to be dry Psych: normal mood and affect Results/Medications Reviewed 04/12/2022 2:44 PM Laboratory, Medications, and Transcriptions NEPHROLOGY PROGRESS NOTE [facility] Patient Name: Salvador Glass Admit Date: [id number] MR #: [id number] : 1940 ASSESSMENT/PLAN: Hyponatremia: hypovolemic hyponatremia related to diuretic use (hydrochlorothiazide, Lasix, and Aldactone). -Sodium kelsey 119 on April 06. Now 132. -Has received tolvaptan with last dose on April 11. -Remains on sodium chloride 1 g 3 times daily. We will check urine sodium and urine osmoles and adjust therapy as indicated. 2. Severe pulmonary hypertension, moderate tricuspid valve regurgitation -Given volume status can continue to hold diuretic therapy Subjective: Denies any new complaint. Patient reports increase in urine output. Appetite remains marginal. Family member at bedside Review of Systems: ROS otherwise reviewed and negative Physical Examination: Vitals: Vitals: 04/11/22 2105 04/12/22 0555 04/12/22 0739 04/12/22 1110 BP: (!) 123/57 (!) 141/57 (!) 116/50 132/64 BP Location: Patient Position: Pulse: 62 60 61 (!) 58 Resp: 17 16 Temp: 98.7 F (37.1 C) 98.1 F (36.7 C) 97.9 F (36.6 C) 97.5 F (36.4 C) TempSrc: Oral Oral Oral Oral SpO2: 98% 98% 98% 99% Weight: Height: Intake/Output last 3 shifts: Intake/Output Summary (Last 24 hours) at 04/12/2022 1259 Last data filed at 04/12/2022 0555 Gross per 24 hour Intake 0 ml Output 875 ml Net -875 ml I/O last 3 completed shifts: In: 720 [P.O.:720] Out: 1625 [Urine:1625] General: No acute distress HEENT: Anicteric Neck: Supple CV: Regular rate, no murmurs or rubs. No lower extremity edema Lungs: CTA B Abd: Soft, nontender, bowel sounds present Extr: good LE perfusion, no cyanosis Results/Medications Reviewed 04/12/22 12:59 PM: Laboratory, Microbiology, Pathology, Radiology, Cardiology, Medications and Transcriptions reviewed Scheduled Meds: amLODIPine 5 mg Oral Daily aspirin 81 mg Oral Daily bacitracin zinc Topical Daily docusate sodium 100 mg Oral Daily enoxaparin (LOVENOX) injection 40 mg Subcutaneous Daily hydrALAZINE 50 mg Oral TID pantoprazole 40 mg Oral Daily polyethylene glycol 17 g Oral Daily sodium chloride (PF) 5 mL Intravenous Q8H EVELYN sodium chloride 1 g Oral TID with meals Continuous Infusions: sodium chloride 0.9 % Results from last 7 days Lab Units 04/12/22 0635 04/11/22 0535 04/10/22 0541 WBC K/mcL 2.15* 2.55* 2.57* HGB g/dL 8.6* 8.6* 8.5* HCT % 25.5* 24.2* 24.2* PLT K/mcL 112* 96* 83* Results from last 7 days Lab Units 04/12/22 0635 04/11/22 2340 04/11/22 1751 04/11/22 1139 04/11/22 0535 04/10/22 1208 04/10/22 0541 04/07/22 1208 04/07/22 0506 SODIUM mmol/L 132* 132* 130* 129* < > 128* 128* < > 122* 122* < > 121* 121* POTASSIUM mmol/L 4.4 -- -- -- 3.6 -- 3.8 < > 4.4 CHLORIDE mmol/L 101 -- -- -- 96* -- 90* < > 90* BICARB mmol/L 24 -- -- -- 22 -- 21 < > 16* BUN mg/dL 10 -- -- -- 9 -- 7* < > 8 CREATININE mg/dL 0.71* -- -- -- 0.74* -- 0.70* < > 0.61* EGFR mL/min/1.73 m2 93 -- -- -- 92 -- 94 < > 98 GLUCOSE mg/dL 106* -- -- -- 104* -- 101* < > 92 CALCIUM mg/dL 8.9 -- -- -- 8.8 -- 8.5 < > 8.3* MAGNESIUM mg/dL 2.2 -- -- -- 2.2 -- 2.1 < > 1.7 PHOSPHORUS mg/dL -- -- -- -- -- -- -- -- 2.9 < > = values in this interval not displayed. Urinalysis Results from last 7 days Lab Units 04/07/22 0039 COLOR, UR Yellow CLARITY, UR Clear SPEC GRAV 1.013 PH, UR 5.5 GLUCOSE, UR mg/dL Negative KETONES, UR mg/dL Trace* BILIRUBIN, UR Negative UROBILINOGEN, UR mg/dL <2.0 BLOOD, UR Negative NITRITE, UR Negative LEUK BOLIVAR, UR Negative MUCUS, UR /lpf Rare WBC, UR /hpf <1 BACTERIA, UR /hpf None Seen HYALINE CASTS /lpf 0-2 CREATININE UR mg/dL 53.1 NEPHROLOGY PROGRESS NOTE [facility] Patient Name: Salvador Glass Admit Date: [id number] MR #: [id number] : 1940 ASSESSMENT/PLAN: Hyponatremia: hypovolemic hyponatremia related to diuretic use (hydrochlorothiazide, Lasix, and Aldactone). Continue to hold diuretics. urine osmo not consistent with beer potomania. Gave Tolvaptan 7.5mg x1 Wednesday and 30mg yesterday. Sodium improving, will keep on salt tablets. Can monitor sodium level daily. Will repeat urine sodium and osmo. Will aim for a normal sodium level tomorrow. Neurologic status is stable. Syncope: patient does have Hx of AFib is on Toprol in the OP setting noted to have bradycardia may have some tachy-yimi. EP has been consulted. Tentatively planning Micra pacemaker 04/14 Fall with closed head injury: management per primary team, trauma team following. Pancytopenia: management per primary team Hem/Onc has been consulted. Subjective: Denies any new complaint Review of Systems: ROS otherwise reviewed and negative Physical Examination: Vitals: Vitals: 04/11/22 2105 04/12/22 0555 04/12/22 0739 04/12/22 1110 BP: (!) 123/57 (!) 141/57 (!) 116/50 132/64 BP Location: Patient Position: Pulse: 62 60 61 (!) 58 Resp: 17 16 Temp: 98.7 F (37.1 C) 98.1 F (36.7 C) 97.9 F (36.6 C) 97.5 F (36.4 C) TempSrc: Oral Oral Oral Oral SpO2: 98% 98% 98% 99% Weight: Height: Intake/Output last 3 shifts: Intake/Output Summary (Last 24 hours) at 04/12/2022 1201 Last data filed at 04/12/2022 0555 Gross per 24 hour Intake 240 ml Output 875 ml Net -635 ml I/O last 3 completed shifts: In: 720 [P.O.:720] Out: 1625 [Urine:1625] General: No acute distress HEENT: Anicteric Neck: Supple CV: Regular rate, no murmurs or rubs. No lower extremity edema Lungs: CTA B Abd: Soft, nontender, bowel sounds present Extr: good LE perfusion, no cyanosis Results/Medications Reviewed 04/12/22 12:01 PM: Laboratory, Microbiology, Pathology, Radiology, Cardiology, Medications and Transcriptions reviewed Scheduled Meds: amLODIPine 5 mg Oral Daily aspirin 81 mg Oral Daily bacitracin zinc Topical Daily docusate sodium 100 mg Oral Daily enoxaparin (LOVENOX) injection 40 mg Subcutaneous Daily hydrALAZINE 50 mg Oral TID pantoprazole 40 mg Oral Daily polyethylene glycol 17 g Oral Daily sodium chloride (PF) 5 mL Intravenous Q8H EVELYN sodium chloride 1 g Oral TID with meals Continuous Infusions: sodium chloride 0.9 % Results from last 7 days Lab Units 04/12/22 0635 04/11/22 0535 04/10/22 0541 WBC K/mcL 2.15* 2.55* 2.57* HGB g/dL 8.6* 8.6* 8.5* HCT % 25.5* 24.2* 24.2* PLT K/mcL 112* 96* 83* Results from last 7 days Lab Units 04/12/22 0635 04/11/22 2340 04/11/22 1751 04/11/22 1139 04/11/22 0535 04/10/22 1208 04/10/22 0541 04/07/22 1208 04/07/22 0506 SODIUM mmol/L 132* 132* 130* 129* < > 128* 128* < > 122* 122* < > 121* 121* POTASSIUM mmol/L 4.4 -- -- -- 3.6 -- 3.8 < > 4.4 CHLORIDE mmol/L 101 -- -- -- 96* -- 90* < > 90* BICARB mmol/L 24 -- -- -- 22 -- 21 < > 16* BUN mg/dL 10 -- -- -- 9 -- 7* < > 8 CREATININE mg/dL 0.71* -- -- -- 0.74* -- 0.70* < > 0.61* EGFR mL/min/1.73 m2 93 -- -- -- 92 -- 94 < > 98 GLUCOSE mg/dL 106* -- -- -- 104* -- 101* < > 92 CALCIUM mg/dL 8.9 -- -- -- 8.8 -- 8.5 < > 8.3* MAGNESIUM mg/dL 2.2 -- -- -- 2.2 -- 2.1 < > 1.7 PHOSPHORUS mg/dL -- -- -- -- -- -- -- -- 2.9 < > = values in this interval not displayed. Urinalysis Results from last 7 days Lab Units 04/07/22 0039 COLOR, UR Yellow CLARITY, UR Clear SPEC GRAV 1.013 PH, UR 5.5 GLUCOSE, UR mg/dL Negative KETONES, UR mg/dL Trace* BILIRUBIN, UR Negative UROBILINOGEN, UR mg/dL <2.0 BLOOD, UR Negative NITRITE, UR Negative LEUK BOLIVAR, UR Negative MUCUS, UR /lpf Rare WBC, UR /hpf <1 BACTERIA, UR /hpf None Seen HYALINE CASTS /lpf 0-2 CREATININE UR mg/dL 53.1 [facility] [place] PROGRESS NOTE Assessment and Plan Salvador Glass is a 81 y.o. male patient of Walter Munguia MD with history of atrial fibrillation, HTN, leukopenia, who presented with fall. Fall: Closed head injury: Left periorbital hematoma Most likely fall secondary to presyncope secondary to slow A. fib. CT head, neck, maxillofacial w/o contrast is non-acute except moderate left periorbital soft tissue swelling with mild soft tissue swelling visualized tracking along the left maxillary region CXR non-acute PT/OT Care management Appreciate trauma evaluation none of the lacerations requiring closure at this time Recommended local wound care with Adaptic daily to all this regions Chronic atrial fibrillation w/ slow ventricular response: Most likely contributing to his fall. EP consulted Micra pacemaker tentatively planned for Wednesday04/14/2022 after stabilization of patient's clinical condition (hyponatremia, pancytopenia.) Echocardiogram 04/07/2022 1. Left ventricular systolic function is normal with an ejection fraction by Biplane Method of Discs of 60 %. 2. Indeterminate diastolic function. 3. Right ventricle is moderately enlarged with normal systolic function. 4. There is moderate tricuspid valve regurgitation. 5. There is significant pulmonary hypertension, estimated right ventricle systolic pressure is 71 mmHg assuming a right atrial pressure of 15 mmHg. Hypovolemic hyponatremia: Concerning for related to diuretic use hydrochlorothiazide, Lasix and Aldactone along with alcohol use Nephrology following. Status post tolvaptan. monitor sodium every 6 hours Last sodium check 128 Pancytopenia probably secondary to liver cirrhosis WBC 3.97 --> 2.8 --> 2.5 Hgb 9.9->9.5 ..> 8.5 Platelets 123->130 >115 > 83> 96 Heme/onc consulted, appreciate input, no need for bone marrow biopsy. CT abdomen pelvis shows cirrhotic liver. Previously described 1 cm left liver lesion not visualized. Mild ileus noted. 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 Continue Norvasc and hydralazine GERD: Pantoprazole Physical deconditioning PT OT and social service consulted for discharge plan Family Contact Information Code Status: Full Code - Unverified Quality Measures DVT Prophylaxis: Win Catheter: Disposition Discharge Location: TBD Estimated Discharge Date: TBD Outpatient Testing: TBD Subjective Patient resting comfortably Denies any headache or shortness of breath Discussed with daughter at bedside. Review of Systems All systems have been reviewed and are negative except as noted in HPI or below Objective BP (!) 110/53 Pulse 60 Temp 98.4 F (36.9 C) (Oral) Resp 18 Ht 6' Wt 82.9 kg (182 lb 12.2 oz) SpO2 98% BMI 24.79 kg/m Physical Examination General Appearance: alert; acute on chronically ill appearing; in no acute distress HEENT: Head-left periorbital hematoma. Eyes- EOMI, sclera anicteric; Ears- hearing intact; Nose- no nasal discharge; Throat- mucous membranes moist Cardiovascular: regular rate and rhythm; normal S1, S2; no murmurs, rubs, clicks or gallops; no peripheral edema Respiratory: Diminished air entry bilateral; without wheezes, rales or rhonchi; on room air Abdomen: soft, non-tender, non-distended; positive bowel sounds Neurological: oriented x 3; normal speech; no focal findings or movement disorder noted Musculoskeletal: no significant deformity or tenderness to palpation Skin: skin tear of his right elbow, right hand, left hand, left cheek, and an abrasion to his left forehead covered cost appear to be dry Psych: normal mood and affect Results/Medications Reviewed 04/11/2022 2:52 PM Laboratory, Medications, and Transcriptions NEPHROLOGY PROGRESS [facility] Patient Name: Salvador Glass Admit Date: [id number] MR #: [id number] : 1940 ASSESSMENT/PLAN: Hyponatremia: hypovolemic hyponatremia related to diuretic use (hydrochlorothiazide, Lasix, and Aldactone). Continue to hold diuretics. urine osmo not consistent with beer potomania. Sodium level starting to show improvement. Will give tolvaptan 30 mg and keep on salt tablets. Can monitor sodium level q 6 hours. Will aim for a sodium level of 134 for tomorrow. Neurologic status is stable. Will repeat urine osmolality Syncope: patient does have Hx of AFib is on Toprol in the OP setting noted to have bradycardia may have some tachy-yimi. EP has been consulted. Tentatively planning Micra pacemaker 04/14 Fall with closed head injury: management per primary team, trauma team following. Pancytopenia: management per primary team Hem/Onc has been consulted. Subjective: Denies any new complaint Review of Systems: ROS otherwise reviewed and negative Physical Examination: Vitals: Vitals: 04/11/22 0100 04/11/22 0459 04/11/22 0740 04/11/22 1148 BP: (!) 145/75 (!) 135/47 (!) 113/51 (!) 110/53 BP Location: Left arm Patient Position: Lying Pulse: 61 (!) 56 (!) 57 60 Resp: 16 18 18 Temp: 98 F (36.7 C) 98.8 F (37.1 C) 98.5 F (36.9 C) 98.4 F (36.9 C) TempSrc: Oral Oral Oral Oral SpO2: 97% 97% 98% Weight: Height: Intake/Output last 3 shifts: Intake/Output Summary (Last 24 hours) at 04/11/2022 1452 Last data filed at 04/11/2022 0815 Gross per 24 hour Intake 480 ml Output 750 ml Net -270 ml I/O last 3 completed shifts: In: 0 Out: 1050 [Urine:1050] General: No acute distress HEENT: Anicteric Neck: Supple CV: Regular rate, no murmurs or rubs. No lower extremity edema Lungs: CTA B Abd: Soft, nontender, bowel sounds present Extr: good LE perfusion, no cyanosis Results/Medications Reviewed 04/11/22 2:52 PM: Laboratory, Microbiology, Pathology, Radiology, Cardiology, Medications and Transcriptions reviewed Scheduled Meds: amLODIPine 5 mg Oral Daily aspirin 81 mg Oral Daily bacitracin zinc Topical Daily docusate sodium 100 mg Oral Daily hydrALAZINE 50 mg Oral TID pantoprazole 40 mg Oral Daily polyethylene glycol 17 g Oral Daily sodium chloride (PF) 5 mL Intravenous Q8H EVELYN sodium chloride 1 g Oral TID with meals Continuous Infusions: sodium chloride 0.9 % Results from last 7 days Lab Units 04/11/22 0535 04/10/22 0541 04/08/22 0845 WBC K/mcL 2.55* 2.57* 2.82* HGB g/dL 8.6* 8.5* 9.5* HCT % 24.2* 24.2* 26.5* PLT K/mcL 96* 83* 115* Results from last 7 days Lab Units 04/11/22 1139 04/11/22 0535 04/10/22 2350 04/10/22 1208 04/10/22 0541 04/09/22 0602 04/09/22 0018 04/07/22 1208 04/07/22 0506 SODIUM mmol/L 128* 128* 128* 126* < > 122* 122* < > 122* 122* < > 121* 121* POTASSIUM mmol/L -- 3.6 -- -- 3.8 -- 3.8 < > 4.4 CHLORIDE mmol/L -- 96* -- -- 90* -- 92* < > 90* BICARB mmol/L -- 22 -- -- 21 -- 22 < > 16* BUN mg/dL -- 9 -- -- 7* -- 6* < > 8 CREATININE mg/dL -- 0.74* -- -- 0.70* -- 0.73* < > 0.61* EGFR mL/min/1.73 m2 -- 92 -- -- 94 -- 93 < > 98 GLUCOSE mg/dL -- 104* -- -- 101* -- 111* < > 92 CALCIUM mg/dL -- 8.8 -- -- 8.5 -- 8.6 < > 8.3* MAGNESIUM mg/dL -- 2.2 -- -- 2.1 -- 1.8 -- 1.7 PHOSPHORUS mg/dL -- -- -- -- -- -- -- -- 2.9 < > = values in this interval not displayed. Urinalysis Results from last 7 days Lab Units 04/07/22 0039 COLOR, UR Yellow CLARITY, UR Clear SPEC GRAV 1.013 PH, UR 5.5 GLUCOSE, UR mg/dL Negative KETONES, UR mg/dL Trace* BILIRUBIN, UR Negative UROBILINOGEN, UR mg/dL <2.0 BLOOD, UR Negative NITRITE, UR Negative LEUK BOLIVAR, UR Negative MUCUS, UR /lpf Rare WBC, UR /hpf <1 BACTERIA, UR /hpf None Seen HYALINE CASTS /lpf 0-2 CREATININE UR mg/dL 53.1 NEPHROLOGY PROGRESS [facility] Patient Name: Salvador Glass Admit Date: [id number] MR #: [id number] : 1940 ASSESSMENT/PLAN: Hyponatremia: hypovolemic hyponatremia related to diuretic use (hydrochlorothiazide, Lasix, and Aldactone). Continue to hold diuretics. urine osmo not consistent with beer potomania. Sodium level remain at 120-125. Will increase tolvaptan to 30 mg and keep on salt tablets. Can monitor sodium level q 6 hours. Will aim for a sodium level of 134 for tomorrow. Neurologic status is stable. Will repeat urine osmolality Syncope: patient does have Hx of AFib is on Toprol in the OP setting noted to have bradycardia may have some tachy-yimi. EP has been consulted. Tentatively planning Micra pacemaker 04/14 Fall with closed head injury: management per primary team, trauma team following. Pancytopenia: management per primary team Hem/Onc has been consulted. Subjective: Denies any new complaint Review of Systems: ROS otherwise reviewed and negative Physical Examination: Vitals: Vitals: 04/11/22 0100 04/11/22 0459 04/11/22 0740 04/11/22 1148 BP: (!) 145/75 (!) 135/47 (!) 113/51 (!) 110/53 BP Location: Left arm Patient Position: Lying Pulse: 61 (!) 56 (!) 57 60 Resp: 16 18 18 Temp: 98 F (36.7 C) 98.8 F (37.1 C) 98.5 F (36.9 C) 98.4 F (36.9 C) TempSrc: Oral Oral Oral Oral SpO2: 97% 97% 98% Weight: Height: Intake/Output last 3 shifts: Intake/Output Summary (Last 24 hours) at 04/11/2022 1343 Last data filed at 04/11/2022 0815 Gross per 24 hour Intake 480 ml Output 750 ml Net -270 ml I/O last 3 completed shifts: In: 0 Out: 1050 [Urine:1050] General: No acute distress HEENT: Anicteric Neck: Supple CV: Regular rate, no murmurs or rubs. No lower extremity edema Lungs: CTA B Abd: Soft, nontender, bowel sounds present Extr: good LE perfusion, no cyanosis Results/Medications Reviewed 04/11/22 1:43 PM: Laboratory, Microbiology, Pathology, Radiology, Cardiology, Medications and Transcriptions reviewed Scheduled Meds: amLODIPine 5 mg Oral Daily aspirin 81 mg Oral Daily bacitracin zinc Topical Daily docusate sodium 100 mg Oral Daily hydrALAZINE 50 mg Oral TID pantoprazole 40 mg Oral Daily polyethylene glycol 17 g Oral Daily sodium chloride (PF) 5 mL Intravenous Q8H EVELYN sodium chloride 1 g Oral TID with meals Continuous Infusions: sodium chloride 0.9 % Results from last 7 days Lab Units 04/11/22 0535 04/10/22 0541 04/08/22 0845 WBC K/mcL 2.55* 2.57* 2.82* HGB g/dL 8.6* 8.5* 9.5* HCT % 24.2* 24.2* 26.5* PLT K/mcL 96* 83* 115* Results from last 7 days Lab Units 04/11/22 1139 04/11/22 0535 04/10/22 2350 04/10/22 1208 04/10/22 0541 04/09/22 0602 04/09/22 0018 04/07/22 1208 04/07/22 0506 SODIUM mmol/L 128* 128* 128* 126* < > 122* 122* < > 122* 122* < > 121* 121* POTASSIUM mmol/L -- 3.6 -- -- 3.8 -- 3.8 < > 4.4 CHLORIDE mmol/L -- 96* -- -- 90* -- 92* < > 90* BICARB mmol/L -- 22 -- -- 21 -- 22 < > 16* BUN mg/dL -- 9 -- -- 7* -- 6* < > 8 CREATININE mg/dL -- 0.74* -- -- 0.70* -- 0.73* < > 0.61* EGFR mL/min/1.73 m2 -- 92 -- -- 94 -- 93 < > 98 GLUCOSE mg/dL -- 104* -- -- 101* -- 111* < > 92 CALCIUM mg/dL -- 8.8 -- -- 8.5 -- 8.6 < > 8.3* MAGNESIUM mg/dL -- 2.2 -- -- 2.1 -- 1.8 -- 1.7 PHOSPHORUS mg/dL -- -- -- -- -- -- -- -- 2.9 < > = values in this interval not displayed. Urinalysis Results from last 7 days Lab Units 04/07/22 0039 COLOR, UR Yellow CLARITY, UR Clear SPEC GRAV 1.013 PH, UR 5.5 GLUCOSE, UR mg/dL Negative KETONES, UR mg/dL Trace* BILIRUBIN, UR Negative UROBILINOGEN, UR mg/dL <2.0 BLOOD, UR Negative NITRITE, UR Negative LEUK BOLIVAR, UR Negative MUCUS, UR /lpf Rare WBC, UR /hpf <1 BACTERIA, UR /hpf None Seen HYALINE CASTS /lpf 0-2 CREATININE UR mg/dL 53.1 [facility] [place] PROGRESS NOTE Assessment and Plan Salvador Glass is a 81 y.o. male patient of Walter Munguia MD with history of atrial fibrillation, HTN, leukopenia, who presented with fall. Fall: Closed head injury: Left periorbital hematoma Most likely fall secondary to presyncope secondary to slow A. fib. CT head, neck, maxillofacial w/o contrast is non-acute except moderate left periorbital soft tissue swelling with mild soft tissue swelling visualized tracking along the left maxillary region CXR non-acute PT/OT Care management Appreciate trauma evaluation none of the lacerations requiring closure at this time Recommended local wound care with Adaptic daily to all this regions Chronic atrial fibrillation w/ slow ventricular response: Most likely contributing to his fall. EP consulted Micra pacemaker tentatively planned for Wednesday04/14/2022 after stabilization of patient's clinical condition (hyponatremia, pancytopenia.) Echocardiogram 04/07/2022 1. Left ventricular systolic function is normal with an ejection fraction by Biplane Method of Discs of 60 %. 2. Indeterminate diastolic function. 3. Right ventricle is moderately enlarged with normal systolic function. 4. There is moderate tricuspid valve regurgitation. 5. There is significant pulmonary hypertension, estimated right ventricle systolic pressure is 71 mmHg assuming a right atrial pressure of 15 mmHg. Hypovolemic hyponatremia: Concerning for related to diuretic use hydrochlorothiazide, Lasix and Aldactone along with alcohol use Nephrology following. Agree with nephrology increasing tolvaptan to 15 mg and starting salt tablets today Due to monitor sodium every 6 hours Last sodium check 122 Pancytopenia probably secondary to liver cirrhosis WBC 3.97 --> 2.8 --> 2.5 Hgb 9.9->9.5 ..> 8.5 Platelets 123->130 >115 > 83 Heme/onc consulted, appreciate input, no need for bone marrow biopsy. CT abdomen pelvis shows cirrhotic liver. Previously described 1 cm left liver lesion not visualized. Mild ileus noted. 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 Continue Norvasc and hydralazine GERD: Pantoprazole Physical deconditioning PT OT and social service consulted for discharge plan Family Contact Information Code Status: Full Code - Unverified Quality Measures DVT Prophylaxis: Win Catheter: Disposition Discharge Location: TBD Estimated Discharge Date: TBD Outpatient Testing: TBD Subjective Patient resting comfortably denies any headache or shortness of breath Discussed with daughter at bedside. Discussed with EP. Review of Systems All systems have been reviewed and are negative except as noted in HPI or below Objective BP (!) 119/57 Pulse 64 Temp 98.6 F (37 C) (Oral) Resp 16 Ht 6' Wt 82.9 kg (182 lb 12.2 oz) SpO2 99% BMI 24.79 kg/m Physical Examination General Appearance: alert; acute on chronically ill appearing; in no acute distress HEENT: Head-left periorbital hematoma. Eyes- EOMI, sclera anicteric; Ears- hearing intact; Nose- no nasal discharge; Throat- mucous membranes moist Cardiovascular: regular rate and rhythm; normal S1, S2; no murmurs, rubs, clicks or gallops; no peripheral edema Respiratory: lungs clear to auscultation; without wheezes, rales or rhonchi; on room air Abdomen: soft, non-tender, non-distended; positive bowel sounds Neurological: oriented x 3; normal speech; no focal findings or movement disorder noted Musculoskeletal: no significant deformity or tenderness to palpation Skin: skin tear of his right elbow, right hand, left hand, left cheek, and an abrasion to his left forehead covered cost appear to be dry Psych: normal mood and affect Results/Medications Reviewed 04/10/2022 3:34 PM Laboratory, Medications, and Transcriptions Physical Therapy PHYSICAL THERAPY TREATMENT NOTE Skilled Therapy Needs After Discharge Are Skilled Therapy Services Needed After Discharge: Yes Intensity of Skilled Therapy: 5 to 7 days per week Anticipated Duration of Skilled Therapy: Duration 10 - 30 days DME Recommendation: Wheeled Walker, Tub seat (has both at home already) DME Rationale: Patient's condition prevents him/her from accomplishing ADL without recommended equipment, Patient's condition creates an increased risk of safety hazard without recommended equipment Rehab Potential: Good Outcomes Measures Prior Function - Basic Mobility Raw Score: 24 Points Prior Function - Basic Mobility % Impaired: 0% AM-PAC Basic Mobility Raw Score: 17 Points AM-PAC Basic Mobility % Impaired: 43.83% Activity Tolerance Activity Tolerance: Tolerates 10 - 20 min activity with multiple rests Therapy Precautions Orthotic Devices: No Weight Bearing Status: WFL General Rehab Precautions: Fall risk (possible geraldo pacer placement for 04/14/22 ( Kev Wallace CNP for cardiology gave permission 04/09/22 for PT evaluation to proceed ahead of micro pacer placement )) Balance Standing Balance - Static: Contact guard assist, with bilateral UE support, with device Software Engineer - Standing Static: wheeled walker Standing Balance - Dynamic: Contact guard assist, with bilateral UE support, with device Software Engineer - Standing Dynamic: wheeled walker Bed Mobility Rolling: Stand by assist, Head of bed elevated Supine to Sit: Stand by assist, Head of bed elevated Software Engineer: bedrails Skilled Intervention Provided: verbal cues, monitoring patient response with activity For: efficient movement, fall prevention Transfers Sit to Stand: Contact guard assist Stand Pivot Transfers: Contact guard assist Software Engineer: wheeled walker Skilled Intervention Provided: patient education, verbal cues, tactile cues, visual cues, monitoring patient response with activity For: UE positioning, efficient movement, controlled descent, fall prevention, safe use of AD and/or equipment, safety during functional tasks, self-monitoring during activity Resulting in: neutral response to intervention Gait/Locomotion Gait Assistance: Contact guard assist Assistive Device: wheeled walker Distance: 150 Feet Pattern: step through, R impaired heel strike, L impaired heel strike, R decreased step length, L decreased step length, wide base of support, decreased maggy (steps per minute), over reliance on upper extremities, forward flexed Gait Loss(es) of Balance: (none noted) Environment/Terrain: open/community environment, multiple distractions Skilled Intervention Provided: verbal cues, monitoring patient response with activity For: device management and safe use of device, efficient movement, gait technique, gait sequence, fall prevention Resulting in: improved activity tolerance, improved performance, improved safety Exercise Ankle Pumps: 20x Hip Flexion: 20x Hip Abduction: 20x Long Arc Quad: 20x Skilled Intervention Provided: instruction on proper technique/alignment, demonstration For: achieving full ROM as tolerated, muscle activation, number of repetitions Resulting in: improved functional strength/ROM, improved activity tolerance, improved performance Additional Treatment Details Pt sitting up in bedside chair at end of session with breakaway alarm applied. Home Living Obtained Home Living and PLOF info from: Patient Lives With: Alone Type of Home: House Home Layout: One level (laundry on main floor) Steps to enter home: Yes Rails to enter home: 1 rail Number of stairs to enter home: 3 Bathroom Shower/Tub: Tub/shower unit, Main level, Walk-in bathtub Bathroom Toilet: Standard Bathroom Equipment: Grab bars in shower, Shower chair Mobility Equipment: Cane, Wheeled walker ADL Equipment: Long handled shoe horn Prior Level of Function Receives Help From: Family Level of [place] - Transfers/Ambulation/Mobility: Independent with functional transfers, Independent with household ambulation, Independent with community ambulation (without use of assistive device ORTHOPEDICS NURSE) Level of [place] - ADLs: Independent Level of [place] - Homemaking: Independent Driving: Patient drives For complete objective data, detailed plan of care and patient education refer to: PT Evaluation flowsheet, PT Evaluation and Treatment flowsheet, PT Treatment flowsheet, patient Plan of Care, Plan of Care progress note, and Patient Education. This note stands as the current Discharge Summary upon patient discharge from the hospital or completion of Physical Therapy Plan of Care. Oncology Inpatient Consult 04/10/2022 Meghan Stokes MD [facility] Patient: Salvador Glass Date of : 1940 (81 y.o.) Referring Provider: Refer to consult order in electronic medical record PCP: Walter Munguia MD ASSESSMENT/PLAN: Salvador Glass 81 y.o. male with history of Salvador Glass is a 81 y.o. male with a history of atrial fibrillation, hypertension, history of leukopenia, history of alcohol abuse who was admitted for hyponatremia and a fall at home. Oncology was consulted due to pancytopenia. Pancytopenia: Patient presented with mild pancytopenia. White count was low at 3.9, hemoglobin 9.9, platelets 123. We do not have any prior labs to compare this with and assess for chronicity. It seems like this has been present though as you mention possibly having low counts at his last lab check. The patient does drink alcohol daily and says he drinks 4-6 rum and Cokes daily and the daughter reports he was diagnosed with cirrhosis when he was in [facility] in May of last year. This could very likely be the etiology of his pancytopenia. B12 and folate levels were checked and are unremarkable. Iron studies are normal. -Myeloma protein studies normal. HIV and hepatitis antibodies negative. LDH and reticulocyte normal. -Abdominal ultrasound noted an enlarged spleen as well as abnormal liver echotexture concerning for underlying fatty liver infiltration. There was a 10 x 10 x 14 mm relatively hypoechoic left hepatic lobe lesion that was indeterminant. See plan below. -We will monitor counts. No need for bone marrow biopsy at this time. Likely secondary to alcohol use as well as underlying liver disease. 1.4 cm left liver lesion: Indeterminate on ultrasound. On further discussion with the patient and his daughter, the patient's daughter noted that when he was in [facility] in May they were concerned about possibly something in the pancreas and recommended an ERCP. He was supposed to have this as an outpatient but then his so he did not pursue this. Given the concern for possible underlying malignancy based on their description, I ordered a CT scan of the chest abdomen and pelvis. The CT noted cirrhotic morphology of the liver for the previously described 1 cm lesion in the left hepatic lobe cannot be visualized on this study and possibly related to the phase of contrast. Could consider nonemergent CT or MRI as an outpatient. Atrial fibrillation: Per patient history. He was diagnosed with this previously but refused anticoagulation. He is being followed by electrophysiology and they are planning for a pacemaker likely next week. Hyponatremia: Present on admission. Nephrology is following and feel that this is consistent with hypovolemic hyponatremia related to diuretic use as he is on hydrochlorothiazide, Lasix, and Aldactone. I also discussed with him that this could be exacerbated by his alcohol use. -Chest x-ray was unremarkable. CT chest without any concerning lung nodules. Will follow SUBJECTIVE: Interval history: The patient denies any new complaints today. Vitals are stable. No bleeding. History of Present Illness: Salvador Glass is a 81 y.o. male with a history of atrial fibrillation, hypertension, history of leukopenia, history of alcohol abuse who was admitted for hyponatremia and a fall at home. Oncology was consulted due to pancytopenia. The patient presented to the ER via EMS after having a fall at home. He says he was reaching down towards a painter touch up and must of fell. He does not recall the events surrounding what happened. He did have some weakness and dizziness for the past few days. When he presented his sodium was extremely low at 119. He had a CBC checked which noted a mildly low white count at 3.9, hemoglobin of 9.9, and platelets of 123. We have no prior labs to compare this with. He does follow with a PCP, Dr. Munguia in [place]. He was last seen in December. He reports that he was previously on aspirin but stopped this. He is not on any anticoagulation for his atrial fibrillation. This was discussed apparently when he was diagnosed about a year ago and he refused anticoagulation because he bruises easily. The patient denies any obvious bleeding but does have scattered ecchymoses. He does admit to drinking alcohol daily. He drinks 4-6 rum and Cokes daily and has done so for many years. His daughter reports that he was diagnosed with cirrhosis while in [facility] about a year ago. No other fevers, chills, adenopathy, night sweats, weight loss. He lost his in the last year. Pending Lab and Radiology Results Order Current Status Copper, Serum In process Immunofixation, Serum In process Protein Electrophoresis, Blood In process Zinc In process CT Chest Abdomen Pelvis With Contrast Preliminary result Interpretation of Testing: I personally reviewed the Chest X-ray and agree with the interpretation(s). Review of Systems: General Constitutional: + Fatigue, denied fevers, chills, anorexia, weight loss, or night sweats Eyes: denied blurry vision ENT: denied nasal drainage, sinus pressure Mouth: denied oral ulcers Endocrine: unusual weight loss, heat or cold intolerance, polyuria, polydipsia, or hair loss/gain Lymphatics: no new adenopathy in cervical, supraclavicular, axillary, inguinal regions Respiratory: no cough, SOB CV: denied palpitations, chest pain/pressure, PND, orthopnea. GI: denied abd pain, n/v/d, constipation, melena. : denied dysuria, urgency, frequency or hematuria. Skin: no rashes or lesions Musculoskeletal: denied muscle/joint/bone pain Hematologic/lmmunologic: no adenopathy, bleeding, easy bruisiality or recurrent infection. Neurology: Denied new headaches, numbness or weakness of extremities Psych: denied anxiety, depression or mood swings Past Medical History: Diagnosis Date Arrhythmia A Fib Bradycardia Hypertension Leukopenia Mild anemia Psoriasis Renal failure History reviewed. No pertinent surgical history. Family History Problem Relation Age of Onset Emphysema Mother Diabetes Father Asthma Father Social History Tobacco Use Smoking Status Former Smokeless Tobacco Never Tobacco Comments quit in his 40s Additional History Comments: None Allergies: Patient has no known allergies. Current HOME Medications: Outpatient Medications Marked as Taking for the 04/06/22 encounter (Hospital Encounter): amLODIPine (NORVASC) 5 MG tablet, Take 5 mg by mouth daily . carvediloL (COREG) 6.25 MG tablet, Take 1 (one) tablet (6.25 mg total) by mouth 2 (two) times a day . furosemide (LASIX) 40 MG tablet, Take 1 (one) tablet (40 mg total) by mouth daily . ketoconazole (NIZORAL) 2 % cream, APPLY CREAM TOPICALLY TO AFFECTED AREA TWICE DAILY lisinopriL (PRINIVIL,ZESTRIL) 2.5 MG tablet, Take 1 (one) tablet (2.5 mg total) by mouth daily . pantoprazole (PROTONIX) 40 MG tablet, Take 1 (one) tablet (40 mg total) by mouth daily . spironolactone (ALDACTONE) 25 MG tablet, Take 1 (one) tablet (25 mg total) by mouth daily . Current HOSPITAL Medications: acetaminophen (TYLENOL) tablet 650 mg, 650 mg, Oral, Q6H PRN aluminum-magnesium hydroxide-simethicone (MAALOX PLUS) 200-200-20 mg/5 mL suspension 30 mL, 30 mL, Oral, Q4H PRN amLODIPine (NORVASC) tablet 5 mg, 5 mg, Oral, Daily aspirin EC tablet 81 mg, 81 mg, Oral, Daily bacitracin zinc ointment, , Topical, Daily bisacodyL (DULCOLAX) suppository 10 mg, 10 mg, Rectal, Daily PRN docusate sodium (COLACE) capsule 100 mg, 100 mg, Oral, Daily hydrALAZINE (APRESOLINE) tablet 50 mg, 50 mg, Oral, TID magnesium hydroxide (MOM) 400 mg/5 mL suspension 2,400 mg, 30 mL, Oral, Daily PRN melatonin tablet 3 mg, 3 mg, Oral, Nightly PRN ondansetron (ZOFRAN-ODT) disintegrating tablet 4 mg, 4 mg, Oral, Q6H PRN OR ondansetron (ZOFRAN) injection 4 mg, 4 mg, Intravenous, Q6H PRN pantoprazole (PROTONIX) EC tablet 40 mg, 40 mg, Oral, Daily polyethylene glycol (MIRALAX) powder 17 g, 17 g, Oral, Daily senna (SENOKOT) tablet 8.6 mg, 1 tablet, Oral, BID PRN Saline lock IV, , , Continuous AND sodium chloride (PF) (NS) flush 5 mL, 5 mL, Intravenous, PRN AND sodium chloride (PF) (NS) flush 5 mL, 5 mL, Intravenous, Q8H EVELYN AND sodium chloride 0.9% (NS), 0-150 mL/hr, Intravenous, PRN sodium chloride 1,000 mg, 1 g, Oral, TID with meals traZODone (DESYREL) tablet 50 mg, 50 mg, Oral, Nightly PRN OBJECTIVE: Physical Examination: BP 128/60 Pulse (!) 58 Temp 98.5 F (36.9 C) (Oral) Resp 16 Ht 6' Wt 82.9 kg (182 lb 12.2 oz) SpO2 98% BMI 24.79 kg/m ECOG 2-3 Gen: Elderly male, resting in bed HEENT: Left eye with ecchymosis and swelling, bandage over this. Anicteric sclera, MMM Neck: supple, no thyromegaly or LAD Lymphatics: no cervical, axillary, or inguinal adenopathy Chest: Mild basilar crackles, otherwise CTAB, no w/r/r, no respiratory distress CV: RRR, no m/r/g, normal S1, S2 Abd: soft, nontender, nondistended, +BS, no hepatosplenomegaly Ext: wwp, no c/c/e Skin: Scattered ecchymoses Neuro: Alert and oriented x4, no focal deficits, moves all four extremities Psych: Mood normal. Laboratory and Additional Data Reviewed: Reviewed 04/10/22 1:27 PM: Laboratory, Radiology, and Medications Lab Results Component Value Date WBC 2.57 (L) 04/10/2022 HGB 8.5 (L) 04/10/2022 HCT 24.2 (L) 04/10/2022 MCV 90.3 04/10/2022 PLT 83 (L) 04/10/2022 RBC 2.68 (L) 04/10/2022 Lab Results Component Value Date GLUCOSE 101 (H) 04/10/2022 CALCIUM 8.5 04/10/2022 NA 122 (L) 04/10/2022 K 3.8 04/10/2022 CL 90 (L) 04/10/2022 BUN 7 (L) 04/10/2022 CREATININE 0.70 (L) 04/10/2022 Lab Results Component Value Date ALT 26 04/06/2022 AST 25 04/06/2022 ALKPHOS 91 04/06/2022 BILITOT 1.9 (H) 04/06/2022 Care Management Progress Note Date: 04/10/2022 Time: 11:57 AM Patient Name: Salvador Glass Date of : 1940 Discharge Plan: Discharging Transportation Plan: Discharge Plan Status: No discharge planned for over the weekend. Possible need for Micra Pacemaker on Wednesday (04/14). NEPHROLOGY PROGRESS NOTE [facility] Patient Name: Salvador Glass Admit Date: [id number] MR #: [id number] : 1940 ASSESSMENT/PLAN: Hyponatremia: hypovolemic hyponatremia related to diuretic use (hydrochlorothiazide, Lasix, and Aldactone). Continue to hold diuretics. urine osmo not consistent with beer potomania. Sodium level remain at 120-125. Will increase tolvaptan to 30 mg and keep on salt tablets. Can monitor sodium level q 6 hours. Will aim for a sodium level for 130 for tomorrow. If no improvement by tomorrow, may need 3% saline. Neurologic status is stable. Will repeat urine osmolality Syncope: patient does have Hx of AFib is on Toprol in the OP setting noted to have bradycardia may have some tachy-yimi. EP has been consulted. Fall with closed head injury: management per primary team, trauma team following. Pancytompenia: management per primary team Hem/Onc has been consulted. Subjective: Denies any new complaint Review of Systems: ROS otherwise reviewed and negative Physical Examination: Vitals: Vitals: 04/10/22 0000 04/10/22 0408 04/10/22 0754 04/10/22 0900 BP: 128/60 123/67 128/60 BP Location: Patient Position: Pulse: 70 (!) 57 (!) 58 Resp: 18 16 16 Temp: (!) 100.4 F (38 C) 98.9 F (37.2 C) 98.5 F (36.9 C) TempSrc: Oral Oral Oral SpO2: 97% 99% 98% Weight: Height: Intake/Output last 3 shifts: Intake/Output Summary (Last 24 hours) at 04/10/2022 1026 Last data filed at 04/10/2022 0300 Gross per 24 hour Intake 360 ml Output 300 ml Net 60 ml I/O last 3 completed shifts: In: 660 [P.O.:660] Out: 815 [Urine:815] General: No acute distress HEENT: Anicteric Neck: Supple CV: Regular rate, no murmurs or rubs. No lower extremity edema Lungs: CTA B Abd: Soft, nontender, bowel sounds present Extr: good LE perfusion, no cyanosis Results/Medications Reviewed 04/10/22 10:26 AM: Laboratory, Microbiology, Pathology, Radiology, Cardiology, Medications and Transcriptions reviewed Scheduled Meds: amLODIPine 5 mg Oral Daily aspirin 81 mg Oral Daily bacitracin zinc Topical Daily docusate sodium 100 mg Oral Daily hydrALAZINE 50 mg Oral TID pantoprazole 40 mg Oral Daily polyethylene glycol 17 g Oral Daily sodium chloride (PF) 5 mL Intravenous Q8H EVELYN sodium chloride 1 g Oral TID with meals Continuous Infusions: sodium chloride 0.9 % Results from last 7 days Lab Units 04/10/22 0541 04/08/22 0845 04/07/22 0507 WBC K/mcL 2.57* 2.82* 3.39* HGB g/dL 8.5* 9.5* 9.4* HCT % 24.2* 26.5* 26.9* PLT K/mcL 83* 115* 130* Results from last 7 days Lab Units 04/10/22 0541 04/09/22 2356 04/09/22 1757 04/09/22 0602 04/09/22 0018 04/08/22 0759 04/08/22 0445 04/07/22 1208 04/07/22 0506 SODIUM mmol/L 122* 122* 122* 121* < > 122* 122* < > 124* 124* < > 121* 121* POTASSIUM mmol/L 3.8 -- -- -- 3.8 -- 3.9 -- 4.4 CHLORIDE mmol/L 90* -- -- -- 92* -- 94* -- 90* BICARB mmol/L 21 -- -- -- 22 -- 21 -- 16* BUN mg/dL 7* -- -- -- 6* -- 8 -- 8 CREATININE mg/dL 0.70* -- -- -- 0.73* -- 0.67* -- 0.61* EGFR mL/min/1.73 m2 94 -- -- -- 93 -- 95 -- 98 GLUCOSE mg/dL 101* -- -- -- 111* -- 104* -- 92 CALCIUM mg/dL 8.5 -- -- -- 8.6 -- 8.5 -- 8.3* MAGNESIUM mg/dL 2.1 -- -- -- 1.8 -- -- -- 1.7 PHOSPHORUS mg/dL -- -- -- -- -- -- -- -- 2.9 < > = values in this interval not displayed. Urinalysis Results from last 7 days Lab Units 04/07/22 0039 COLOR, UR Yellow CLARITY, UR Clear SPEC GRAV 1.013 PH, UR 5.5 GLUCOSE, UR mg/dL Negative KETONES, UR mg/dL Trace* BILIRUBIN, UR Negative UROBILINOGEN, UR mg/dL <2.0 BLOOD, UR Negative NITRITE, UR Negative LEUK BOLIVAR, UR Negative MUCUS, UR /lpf Rare WBC, UR /hpf <1 BACTERIA, UR /hpf None Seen HYALINE CASTS /lpf 0-2 CREATININE UR mg/dL 53.1 [facility] [place] PROGRESS NOTE Assessment and Plan Salvador Glass is a 81 y.o. male patient of Walter Munguia MD with history of atrial fibrillation, HTN, leukopenia, who presented with fall. Fall: Closed head injury: Left periorbital hematoma Most likely fall secondary to presyncope secondary to slow A. fib. CT head, neck, maxillofacial w/o contrast is non-acute except moderate left periorbital soft tissue swelling with mild soft tissue swelling visualized tracking along the left maxillary region CXR non-acute PT/OT Care management Appreciate trauma evaluation none of the lacerations requiring closure at this time Recommended local wound care with Adaptic daily to all this regions Chronic atrial fibrillation w/ slow ventricular response: Most likely contributing to his fall. EP consulted Micra pacemaker tentatively planned for Wednesday04/14/2022 after stabilization of patient's clinical condition (hyponatremia, pancytopenia.) Echocardiogram 04/07/2022 1. Left ventricular systolic function is normal with an ejection fraction by Biplane Method of Discs of 60 %. 2. Indeterminate diastolic function. 3. Right ventricle is moderately enlarged with normal systolic function. 4. There is moderate tricuspid valve regurgitation. 5. There is significant pulmonary hypertension, estimated right ventricle systolic pressure is 71 mmHg assuming a right atrial pressure of 15 mmHg. Hypovolemic hyponatremia: Concerning for related to diuretic use hydrochlorothiazide, Lasix and Aldactone along with alcohol use Nephrology following. Agree with nephrology increasing tolvaptan to 15 mg and starting salt tablets today Due to monitor sodium every 6 hours Last sodium check 124 Pancytopenia probably secondary to liver cirrhosis WBC 3.97 --> 2.8 Hgb 9.9->9.5 Platelets 123->130 >115 Heme/onc consulted CT abdomen pelvis shows cirrhotic liver. Previously described 1 cm left liver lesion not visualized. Mild ileus noted. 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 Continue Norvasc and hydralazine GERD: Pantoprazole Physical deconditioning PT OT and social service consulted for discharge plan Family Contact Information Code Status: Full Code - Unverified Quality Measures DVT Prophylaxis: Win Catheter: Disposition Discharge Location: TBD Estimated Discharge Date: TBD Outpatient Testing: TBD Subjective Patient resting comfortably denies any headache or shortness of breath Discussed with daughter at bedside. Discussed with EP. Review of Systems All systems have been reviewed and are negative except as noted in HPI or below Objective BP (!) 155/69 Pulse 83 Temp 99.3 F (37.4 C) (Oral) Resp 16 Ht 6' Wt 82.9 kg (182 lb 12.2 oz) SpO2 98% BMI 24.79 kg/m Physical Examination General Appearance: alert; acute on chronically ill appearing; in no acute distress HEENT: Head-left periorbital hematoma. Eyes- EOMI, sclera anicteric; Ears- hearing intact; Nose- no nasal discharge; Throat- mucous membranes moist Cardiovascular: regular rate and rhythm; normal S1, S2; no murmurs, rubs, clicks or gallops; no peripheral edema Respiratory: lungs clear to auscultation; without wheezes, rales or rhonchi; on room air Abdomen: soft, non-tender, non-distended; positive bowel sounds Neurological: oriented x 3; normal speech; no focal findings or movement disorder noted Musculoskeletal: no significant deformity or tenderness to palpation Skin: skin tear of his right elbow, right hand, left hand, left cheek, and an abrasion to his left forehead covered cost appear to be dry Psych: normal mood and affect Results/Medications Reviewed 04/09/2022 3:38 PM Laboratory, Medications, and Transcriptions Occupational Therapy OCCUPATIONAL THERAPY TREATMENT NOTE Spoke with OTR/L regarding changing recommendations to 5-7 days/week. Skilled Therapy Needs After Discharge Anticipate Resolution of Current Assessment Limitations Including: Pain, Mechanical Barriers, Social Support Are Skilled Therapy Services Needed After Discharge: Yes Intensity of Skilled Therapy: 5 to 7 days per week Anticipated Duration of Skilled Therapy: Duration 7 - 10 days DME Recommendation: (TBD) Rehab Potential: Good Outcomes Measures Prior Function Daily Activity Raw Score: 24 Prior Function Daily Activity % Impaired: 0% AM-PAC Daily Activity Raw Score: 16 AM-PAC Daily Activity % Impaired: 53.32% Activity Tolerance Activity Tolerance: Tolerates 10 - 20 min activity with multiple rests Therapy Precautions Orthotic Devices: No Weight Bearing Status: WFL General Rehab Precautions: Fall risk Cognition Overall Cognitive Status: Within Functional Limits Arousal/Alertness: Appropriate responses to stimuli Orientation Level: Oriented X4 Executive functioning: WFL Safety Judgment: Decreased awareness of need for assistance, Decreased awareness of need for safety Problem Solving: Assistance required to identify errors made, Assistance required to generate solutions Attention: Attends to quiet environment Hearing Status: Hard of hearing Social Interaction: WFL Comments: Followed all commands during session. ADL Upper Body Bathing: Stand by assist (seated) Lower Body Bathing: Moderate assist (sitting and standing. Required mod A in standing when completing librado/posterior care. Demo two LOB posteriorly requiring min A to correct.) Lower Body Dressing: Moderate assist (to don pull up over feet and to waist) Toileting: Dependent (urine incontinence again this date. Pt did urinate a little in toilet but had also urinated in pull up) Functional Mobility: Minimal assist (amb to and from bathroom with FWW) Functional Mobility - Skilled Intervention Provided: verbal cues, monitoring patient response with activity Functional Mobility - For: fall prevention, increased participation in mobility task Functional Mobility - Resulting In: diminished performance, decreased safety (attempting to stand from recliner without walker within reach.) Overall ADL Performance - Skilled Intervention Provided: environmental setup/modification, monitoring patient response with activity Overall ADL Performance - For: efficient movement, safety during functional task(s) Overall ADL Performance - Resulting In: improved participation in ADL task(s) Functional Transfers Sit to Stand: Minimal assist (from recliner) Toilet Transfers: Minimal assist, to/from toilet with elevated seat height, Grab bars Software Engineer: wheeled walker Skilled Intervention Provided: verbal cues, monitoring patient response with activity For: fall prevention, increased participation in mobility task Resulting In: decreased safety Additional Treatment Details When approached first time this date, daughter reported pt was hoping to discharge to [facility] prior to return home. Home Living Obtained Home Living and PLOF info from: Patient Lives With: Alone Type of Home: House Home Layout: One level (laundry on main floor) Steps to enter home: Yes Rails to enter home: 1 rail Number of stairs to enter home: 3 Bathroom Shower/Tub: Tub/shower unit, Main level, Walk-in bathtub Bathroom Toilet: Standard Bathroom Equipment: Grab bars in shower, Shower chair Mobility Equipment: Cane, Wheeled walker ADL Equipment: Long handled shoe horn Prior Level of Function Receives Help From: Family Level of [place] - Transfers/Ambulation/Mobility: Independent with functional transfers, Independent with household ambulation, Independent with community ambulation (without use of assistive device ORTHOPEDICS NURSE) Level of [place] - ADLs: Independent Level of [place] - Homemaking: Independent Driving: Patient drives For complete objective data, detailed plan of care and patient education refer to: OT Evaluation flowsheet, OT Evaluation and Treatment flowsheet, OT Treatment flowsheet, patient Plan of Care, Plan of Care progress note, and Patient Education. This note stands as the current Discharge Summary upon patient discharge from the hospital or completion of Occupational Therapy Plan of Care. NEPHROLOGY PROGRESS NOTE [facility] Patient Name: Salvador Glass Admit Date: [id number] MR #: [id number] : 1940 ASSESSMENT/PLAN: Hyponatremia: hypovolemic hyponatremia related to diuretic use (hydrochlorothiazide, Lasix, and Aldactone). Continue to hold diuretics. urine osmo not consistent with beer potomania. Sodium level remain at 120-125. Will increase tolvaptan to 15 mg and start on salt tablets. Can monitor sodium level q 6 hours. Will aim for a sodium level for 130 for tomorrow. No need for 3% saline at this time. Neurologic status is stable. Will repeat urine osmolality Syncope: patient does have Hx of AFib is on Toprol in the OP setting noted to have bradycardia may have some tachy-yimi. EP has been consulted. Fall with closed head injury: management per primary team, trauma team following. Pancytompenia: management per primary team Hem/Onc has been consulted. Subjective: Denies any new complaint Review of Systems: ROS otherwise reviewed and negative Physical Examination: Vitals: Vitals: 04/09/22 0008 04/09/22 0530 04/09/22 0815 04/09/22 0825 BP: (!) 141/62 (!) 146/60 (!) 159/55 BP Location: Left arm Left arm Patient Position: Lying Lying Pulse: (!) 56 (!) 55 63 Resp: 16 16 Temp: 98.8 F (37.1 C) 98.9 F (37.2 C) 98.2 F (36.8 C) TempSrc: Oral Oral Oral SpO2: 97% 95% 99% Weight: Height: Intake/Output last 3 shifts: Intake/Output Summary (Last 24 hours) at 04/09/2022 1443 Last data filed at 04/09/2022 0825 Gross per 24 hour Intake 300 ml Output 615 ml Net -315 ml I/O last 3 completed shifts: In: 960 [P.O.:960] Out: 2365 [Urine:2365] General: No acute distress HEENT: Anicteric Neck: Supple CV: Regular rate, no murmurs or rubs. No lower extremity edema Lungs: CTA B Abd: Soft, nontender, bowel sounds present Extr: good LE perfusion, no cyanosis Results/Medications Reviewed 04/09/22 2:43 PM: Laboratory, Microbiology, Pathology, Radiology, Cardiology, Medications and Transcriptions reviewed Scheduled Meds: amLODIPine 5 mg Oral Daily aspirin 81 mg Oral Daily bacitracin zinc Topical Daily docusate sodium 100 mg Oral Daily hydrALAZINE 50 mg Oral TID pantoprazole 40 mg Oral Daily polyethylene glycol 17 g Oral Daily sodium chloride (PF) 5 mL Intravenous Q8H EVELYN sodium chloride 1 g Oral TID with meals Continuous Infusions: sodium chloride 0.9 % Results from last 7 days Lab Units 04/08/22 0845 04/07/22 0507 04/06/22 2142 WBC K/mcL 2.82* 3.39* 3.97* HGB g/dL 9.5* 9.4* 9.9* HCT % 26.5* 26.9* 28.9* PLT K/mcL 115* 130* 123* Results from last 7 days Lab Units 04/09/22 1217 04/09/22 0602 04/09/22 0018 04/08/22 0759 04/08/22 0445 04/07/22 1208 04/07/22 0506 04/06/22 2142 SODIUM mmol/L 120* 124* 122* 122* < > 124* 124* < > 121* 121* 119* POTASSIUM mmol/L -- -- 3.8 -- 3.9 -- 4.4 4.0 CHLORIDE mmol/L -- -- 92* -- 94* -- 90* 87* BICARB mmol/L -- -- 22 -- 21 -- 16* 20* BUN mg/dL -- -- 6* -- 8 -- 8 11 CREATININE mg/dL -- -- 0.73* -- 0.67* -- 0.61* 0.87 EGFR mL/min/1.73 m2 -- -- 93 -- 95 -- 98 88 GLUCOSE mg/dL -- -- 111* -- 104* -- 92 105* CALCIUM mg/dL -- -- 8.6 -- 8.5 -- 8.3* 8.7 MAGNESIUM mg/dL -- -- 1.8 -- -- -- 1.7 1.8 PHOSPHORUS mg/dL -- -- -- -- -- -- 2.9 -- < > = values in this interval not displayed. Urinalysis Results from last 7 days Lab Units 04/07/22 0039 COLOR, UR Yellow CLARITY, UR Clear SPEC GRAV 1.013 PH, UR 5.5 GLUCOSE, UR mg/dL Negative KETONES, UR mg/dL Trace* BILIRUBIN, UR Negative UROBILINOGEN, UR mg/dL <2.0 BLOOD, UR Negative NITRITE, UR Negative LEUK BOLIVAR, UR Negative MUCUS, UR /lpf Rare WBC, UR /hpf <1 BACTERIA, UR /hpf None Seen HYALINE CASTS /lpf 0-2 CREATININE UR mg/dL 53.1 Electrophysiology Inpatient Follow-up Heart & Vascular [facility] 04/09/2022 Kev Wallace, GRETA [facility] Patient: Salvador Glass Date of : 1940 (81 y.o.) PCP: Walter Munguia MD Assessment: Salvador Glass is a 81 year old male with: + syncope and facial trauma at home 04/06/22 + hx of atrial fibrillation for years + not on OAC at home, pt refuses and declined Cardioversion in the past (as far back as 03/2019). Takes aspirin 81 mg daily + Currently has pancytopenia with heme/onc consutled + EF 60% on echo 04/07/22 + LA severely enlarged and RA enlarged on echo 04/07/22 + moderate TVR with significant RVSP 71 mm Hg on echo 04/07/22 + RV moderately enlarged on echo 04/07/22 + no known CAD NM myocardial perfusion 03/28/19: no ischemia , EF 74% + hyponatremia on admission ( Na 121 on 04/07, 124 on 04/08) Nephrology consulted +diagnosed with cirrhosis in [place] May 2021 -new info 04/08/22 re: alcohol use (4-6 rum and cokes daily), Abd Ultrasound 04/08/22 1. Spleen is enlarged. 2. Abnormal hepatic echotexture is an indication of underlying liver disease often fatty infiltration. 3. 10 x 10 x 14 mm relatively hypoechoic posterior aspect lateral segment left hepatic lobe finding is indeterminate. 4. No gallstones or biliary dilatation. 5. No ascites. PRR/pji Echo 04/07/22 1. Left ventricular systolic function is normal with an ejection fraction by Biplane Method of Discs of 60 %. 2. Indeterminate diastolic function. 3. Right ventricle is moderately enlarged with normal systolic function. 4. There is moderate tricuspid valve regurgitation. 5. There is significant pulmonary hypertension, estimated right ventricle systolic pressure is 71 mmHg assuming a right atrial pressure of 15 mmHg. Plan 04/07/2022: reviewed with Dr Haji - will monitor heart rhythm for now - continue to hold HR limiting meds (coreg 6.25. mg BID at home being held) -When metabolic issues resolve, will place a pacemaker (likely Micra) prior to discharge -Echo results pending - See above -Sodium remains low at 121 today -Watch Hgb/ 9.4/26.9 & platelets 130 today - will likely consider Watchman as an outpt -Goal K 4.0-4.7, Potassium today is 4.4 -Goal Mg 2.0-2.2 , Mg today is 1.7- HOSPITALISTS, please replace PLAN 04/08/2022: -sodium slowly improving (nephrology starting) -Remains pancytopenic: H/H stable at 9.5/26.5, platelets 115, -WBC 2.82-possibly due to cirrhosis- Has enlarged spleen on abd US today. -plan for Micra Pacemaker (possibly 04/14) PLAN 04/09/22: -Sodium is 124 this morning. Nephrology is following and managing. Mag 1.8, replacement ordered. -Heme/onc following for pantocytopenia -Planning for micra pacemaker on 04/14. Patient continues to have frequent 3 second pauses, longest pause lasting 3.4 seconds overnight -Discussed possible watchman procedure with patient, patient declines. Discussed the need for anticoagulation due to risk of stroke with afib, patient declines. Goal K 4.0-4.7 -Goal Mg 2.0-2.2 -Will continue to follow Subjective Today 04/09/22 Patient denies palpitations, dyspnea, chest discomfort,lightheadedness, dizziness, or lower extremity edema. Imaging: I independently reviewed the telemetry and agree with the interpretation(s) with the following comments. ECG 12 Lead Final Result by Interface, Lab Results In [place] [facility] (04/07/2022 2208) Echocardiogram complete w contrast Final Result by Jane Cosby MD (04/07/2022 1240) Echocardiogram complete Final Result by Shwetha Carr MD (03/28/2019 0851) Review of Systems: All system(s) were reviewed. Pertinent positive and negative findings are noted in the HPI. All system negative unless otherwise noted in the HPI. Current Facility-Administered Medications: acetaminophen (TYLENOL) tablet 650 mg, 650 mg, Oral, Q6H PRN, Connor Romero MD, 650 mg at 04/08/22 224 aluminum-magnesium hydroxide-simethicone (MAALOX PLUS) 200-200-20 mg/5 mL suspension 30 mL, 30 mL, Oral, Q4H PRN, Connor Romero MD amLODIPine (NORVASC) tablet 5 mg, 5 mg, Oral, Daily, Connor Romero MD, 5 mg at 04/09/22 08 aspirin EC tablet 81 mg, 81 mg, Oral, Daily, Connor Romero MD, 81 mg at 04/09/22 08 bacitracin zinc ointment, , Topical, Daily, Kim Rizzo CNP, Given at 04/09/22 09 bisacodyL (DULCOLAX) suppository 10 mg, 10 mg, Rectal, Daily PRN, Connor Romero MD docusate sodium (COLACE) capsule 100 mg, 100 mg, Oral, Daily, Connor Romero MD, 100 mg at 04/09/22821 hydrALAZINE (APRESOLINE) tablet 50 mg, 50 mg, Oral, TID, Connor Romero MD, 50 mg at 04/09/22 08 iopamidoL (ISOVUE-370) 76 % injection 75 mL, 75 mL, Intravenous, Once in imaging, Meghan Stokes MD magnesium hydroxide (MOM) 400 mg/5 mL suspension 2,400 mg, 30 mL, Oral, Daily PRN, Connor Romero MD magnesium sulfate 2 g in sterile water (SW) 50 mL IVPB, 2 g, Intravenous, Once, Kev Wallace CNP melatonin tablet 3 mg, 3 mg, Oral, Nightly PRN, Connor Romero MD, 3 mg at 04/08/22 224 ondansetron (ZOFRAN-ODT) disintegrating tablet 4 mg, 4 mg, Oral, Q6H PRN OR ondansetron (ZOFRAN) injection 4 mg, 4 mg, Intravenous, Q6H PRN, Connor Romero MD pantoprazole (PROTONIX) EC tablet 40 mg, 40 mg, Oral, Daily, Connor Romero MD, 40 mg at 04/09/22 0822 senna (SENOKOT) tablet 8.6 mg, 1 tablet, Oral, BID PRN, Connor Romero MD sodium chloride (PF) (NS) 0.9 % contrast line flush 10 mL, 10 mL, Intravenous, Once in imaging AND sodium chloride (PF) (NS) 0.9 % contrast line flush 80 mL, 80 mL, Intravenous, Once in imaging, Meghan Stokes MD Saline lock IV, , , Continuous AND sodium chloride (PF) (NS) flush 5 mL, 5 mL, Intravenous, PRN AND sodium chloride (PF) (NS) flush 5 mL, 5 mL, Intravenous, Q8H EVELYN, 5 mL at 04/08/22 2244 AND sodium chloride 0.9% (NS), 0-150 mL/hr, Intravenous, PRN, Connor Romero MD sodium chloride 1,000 mg, 1 g, Oral, TID with meals, Lasha Souza MD traZODone (DESYREL) tablet 50 mg, 50 mg, Oral, Nightly PRN, Connor Romero MD Objective: Physical Examination: Blood pressure (!) 159/55, pulse 63, temperature 98.2 F (36.8 C), temperature source Oral, resp. rate 16, height 6', weight 82.9 kg (182 lb 12.2 oz), SpO2 99 %. Telemetry: Atrial fibrillation with frequent pauses, most lasting < 3 seconds, longest pause is 3.44 seconds during sleep hours. HR 83 bpm Constitutional Alert and oriented X3 in no acute distress. Head: normocephalic. Neck: No masses noted HEENT Anicteric Heart:. Normal Intensity S1 and S2. No murmurs. Lungs: Clear to auscultation. Good air movement. No crackles noted. Abdomen is soft and nontender. Extremities: Extremities are warm. No lower extremity edema. Adequate peripheral pulses. Skin: Ecchymotic areas present on upper extremities, arms, and chest. Left facial bruising and swelling from fall present. Neuro: nonfocal Psych pleasant and cooperative Lab Results Component Value Date GLUCOSE 111 (H) 04/09/2022 CALCIUM 8.6 04/09/2022 NA 124 (L) 04/09/2022 K 3.8 04/09/2022 CL 92 (L) 04/09/2022 BUN 6 (L) 04/09/2022 CREATININE 0.73 (L) 04/09/2022 Lab Results Component Value Date WBC 2.82 (L) 04/08/2022 HGB 9.5 (L) 04/08/2022 HCT 26.5 (L) 04/08/2022 MCV 89.2 04/08/2022 PLT 115 (L) 04/08/2022 RBC 2.97 (L) 04/08/2022 Lab Results Component Value Date ALT 26 04/06/2022 AST 25 04/06/2022 ALKPHOS 91 04/06/2022 BILITOT 1.9 (H) 04/06/2022 Serum creatinine: 0.73 mg/dL (L) 04/09/22 0018 Estimated creatinine clearance: 90.1 mL/min (A) Oncology Inpatient Consult 04/09/2022 Meghan Stokes MD [facility] Patient: Salvador Glass Date of : 1940 (81 y.o.) Referring Provider: Refer to consult order in electronic medical record PCP: Walter Munguia MD ASSESSMENT/PLAN: Salvador Glass 81 y.o. male with history of Salvador Glass is a 81 y.o. male with a history of atrial fibrillation, hypertension, history of leukopenia, history of alcohol abuse who was admitted for hyponatremia and a fall at home. Oncology was consulted due to pancytopenia. Pancytopenia: Patient presented with mild pancytopenia. White count was low at 3.9, hemoglobin 9.9, platelets 123. We do not have any prior labs to compare this with and assess for chronicity. It seems like this has been present though as you mention possibly having low counts at his last lab check. The patient does drink alcohol daily and says he drinks 4-6 rum and Cokes daily and the daughter reports he was diagnosed with cirrhosis when he was in [facility] in May of last year. This could very likely be the etiology of his pancytopenia. B12 and folate levels were checked and are unremarkable. Iron studies are normal. -Myeloma protein studies normal. HIV and hepatitis antibodies negative. LDH and reticulocyte normal. -Abdominal ultrasound noted an enlarged spleen as well as abnormal liver echotexture concerning for underlying fatty liver infiltration. There was a 10 x 10 x 14 mm relatively hypoechoic left hepatic lobe lesion that was indeterminant. See plan below. -We will monitor counts. No need for bone marrow biopsy at this time. Likely secondary to alcohol use as well as underlying liver disease. 1.4 cm left liver lesion: Indeterminate on ultrasound. On further discussion with the patient and his daughter, the patient's daughter noted that when he was in [facility] in May they were concerned about possibly something in the pancreas and recommended an ERCP. He was supposed to have this as an outpatient but then his so he did not pursue this. Given the concern for possible underlying malignancy based on their description, I would like to get a CT scan of the chest abdomen pelvis. He was agreeable. Will order today. Atrial fibrillation: Per patient history. He was diagnosed with this previously but refused anticoagulation. He is being followed by electrophysiology and they are planning for a pacemaker likely next week. Hyponatremia: Present on admission. Nephrology is following and feel that this is consistent with hypovolemic hyponatremia related to diuretic use as he is on hydrochlorothiazide, Lasix, and Aldactone. I also discussed with him that this could be exacerbated by his alcohol use. -Chest x-ray was unremarkable. Getting CT scans as above. Will follow SUBJECTIVE: Interval history: The patient denies any new complaints today. Vitals are stable. No bleeding. History of Present Illness: Salvador Glass is a 81 y.o. male with a history of atrial fibrillation, hypertension, history of leukopenia, history of alcohol abuse who was admitted for hyponatremia and a fall at home. Oncology was consulted due to pancytopenia. The patient presented to the ER via EMS after having a fall at home. He says he was reaching down towards a painter touch up and must of fell. He does not recall the events surrounding what happened. He did have some weakness and dizziness for the past few days. When he presented his sodium was extremely low at 119. He had a CBC checked which noted a mildly low white count at 3.9, hemoglobin of 9.9, and platelets of 123. We have no prior labs to compare this with. He does follow with a PCP, Dr. Munguia in [place]. He was last seen in December. He reports that he was previously on aspirin but stopped this. He is not on any anticoagulation for his atrial fibrillation. This was discussed apparently when he was diagnosed about a year ago and he refused anticoagulation because he bruises easily. The patient denies any obvious bleeding but does have scattered ecchymoses. He does admit to drinking alcohol daily. He drinks 4-6 rum and Cokes daily and has done so for many years. His daughter reports that he was diagnosed with cirrhosis while in [facility] about a year ago. No other fevers, chills, adenopathy, night sweats, weight loss. He lost his in the last year. Pending Lab and Radiology Results Order Current Status Copper, Serum In process Immunofixation, Serum In process Protein Electrophoresis, Blood In process Zinc In process Interpretation of Testing: I personally reviewed the Chest X-ray and agree with the interpretation(s). Review of Systems: General Constitutional: + Fatigue, denied fevers, chills, anorexia, weight loss, or night sweats Eyes: denied blurry vision ENT: denied nasal drainage, sinus pressure Mouth: denied oral ulcers Endocrine: unusual weight loss, heat or cold intolerance, polyuria, polydipsia, or hair loss/gain Lymphatics: no new adenopathy in cervical, supraclavicular, axillary, inguinal regions Respiratory: no cough, SOB CV: denied palpitations, chest pain/pressure, PND, orthopnea. GI: denied abd pain, n/v/d, constipation, melena. : denied dysuria, urgency, frequency or hematuria. Skin: no rashes or lesions Musculoskeletal: denied muscle/joint/bone pain Hematologic/lmmunologic: no adenopathy, bleeding, easy bruisiality or recurrent infection. Neurology: Denied new headaches, numbness or weakness of extremities Psych: denied anxiety, depression or mood swings Past Medical History: Diagnosis Date Arrhythmia A Fib Bradycardia Hypertension Leukopenia Mild anemia Psoriasis Renal failure History reviewed. No pertinent surgical history. Family History Problem Relation Age of Onset Emphysema Mother Diabetes Father Asthma Father Social History Tobacco Use Smoking Status Former Smokeless Tobacco Never Tobacco Comments quit in his 40s Additional History Comments: None Allergies: Patient has no known allergies. Current HOME Medications: No outpatient medications have been marked as taking for the 04/06/22 encounter (Hospital Encounter). Current HOSPITAL Medications: acetaminophen (TYLENOL) tablet 650 mg, 650 mg, Oral, Q6H PRN aluminum-magnesium hydroxide-simethicone (MAALOX PLUS) 200-200-20 mg/5 mL suspension 30 mL, 30 mL, Oral, Q4H PRN amLODIPine (NORVASC) tablet 5 mg, 5 mg, Oral, Daily aspirin EC tablet 81 mg, 81 mg, Oral, Daily bacitracin zinc ointment, , Topical, Daily bisacodyL (DULCOLAX) suppository 10 mg, 10 mg, Rectal, Daily PRN docusate sodium (COLACE) capsule 100 mg, 100 mg, Oral, Daily hydrALAZINE (APRESOLINE) tablet 50 mg, 50 mg, Oral, TID iopamidoL (ISOVUE-370) 76 % injection 75 mL, 75 mL, Intravenous, Once in imaging iopamidol (ISOVUE-370) 76 % oral solution 6 mL, 6 mL, Oral, Q30 Min PRN magnesium hydroxide (MOM) 400 mg/5 mL suspension 2,400 mg, 30 mL, Oral, Daily PRN magnesium sulfate 2 g in sterile water (SW) 50 mL IVPB, 2 g, Intravenous, Once melatonin tablet 3 mg, 3 mg, Oral, Nightly PRN ondansetron (ZOFRAN-ODT) disintegrating tablet 4 mg, 4 mg, Oral, Q6H PRN OR ondansetron (ZOFRAN) injection 4 mg, 4 mg, Intravenous, Q6H PRN pantoprazole (PROTONIX) EC tablet 40 mg, 40 mg, Oral, Daily senna (SENOKOT) tablet 8.6 mg, 1 tablet, Oral, BID PRN sodium chloride (PF) (NS) 0.9 % contrast line flush 10 mL, 10 mL, Intravenous, Once in imaging AND sodium chloride (PF) (NS) 0.9 % contrast line flush 80 mL, 80 mL, Intravenous, Once in imaging Saline lock IV, , , Continuous AND sodium chloride (PF) (NS) flush 5 mL, 5 mL, Intravenous, PRN AND sodium chloride (PF) (NS) flush 5 mL, 5 mL, Intravenous, Q8H EVELYN AND sodium chloride 0.9% (NS), 0-150 mL/hr, Intravenous, PRN sodium chloride 1,000 mg, 1 g, Oral, TID with meals tolvaptan (SAMSCA) tablet 15 mg, 15 mg, Oral, Once traZODone (DESYREL) tablet 50 mg, 50 mg, Oral, Nightly PRN OBJECTIVE: Physical Examination: BP (!) 159/55 Pulse 63 Temp 98.2 F (36.8 C) (Oral) Resp 16 Ht 6' Wt 82.9 kg (182 lb 12.2 oz) SpO2 99% BMI 24.79 kg/m ECOG 2-3 Gen: Elderly male, resting in bed HEENT: Left eye with ecchymosis and swelling, bandage over this. Anicteric sclera, MMM Neck: supple, no thyromegaly or LAD Lymphatics: no cervical, axillary, or inguinal adenopathy Chest: Mild basilar crackles, otherwise CTAB, no w/r/r, no respiratory distress CV: RRR, no m/r/g, normal S1, S2 Abd: soft, nontender, nondistended, +BS, no hepatosplenomegaly Ext: wwp, no c/c/e Skin: Scattered ecchymoses Neuro: Alert and oriented x4, no focal deficits, moves all four extremities Psych: Mood normal. Laboratory and Additional Data Reviewed: Reviewed 04/09/22 9:09 AM: Laboratory, Radiology, and Medications Lab Results Component Value Date WBC 2.82 (L) 04/08/2022 HGB 9.5 (L) 04/08/2022 HCT 26.5 (L) 04/08/2022 MCV 89.2 04/08/2022 PLT 115 (L) 04/08/2022 RBC 2.97 (L) 04/08/2022 Lab Results Component Value Date GLUCOSE 111 (H) 04/09/2022 CALCIUM 8.6 04/09/2022 NA 124 (L) 04/09/2022 K 3.8 04/09/2022 CL 92 (L) 04/09/2022 BUN 6 (L) 04/09/2022 CREATININE 0.73 (L) 04/09/2022 Lab Results Component Value Date ALT 26 04/06/2022 AST 25 04/06/2022 ALKPHOS 91 04/06/2022 BILITOT 1.9 (H) 04/06/2022 [facility] [place] PROGRESS NOTE Assessment and Plan Salvador Glass is a 81 y.o. male patient of Walter Munguia MD with history of atrial fibrillation, HTN, leukopenia, who presented with fall. Fall: Closed head injury: Left periorbital hematoma Most likely fall secondary to presyncope secondary to slow A. fib. CT head, neck, maxillofacial w/o contrast is non-acute except moderate left periorbital soft tissue swelling with mild soft tissue swelling visualized tracking along the left maxillary region CXR non-acute PT/OT Care management Appreciate trauma evaluation none of the lacerations requiring closure at this time Recommended local wound care with Adaptic daily to all this regions Chronic atrial fibrillation w/ slow ventricular response: Most likely contributing to his fall. EP consulted and recommended most likely patient will need Micra pacemaker tentatively planned for Wednesday04/14/2022 after stabilization of patient's clinical condition (hyponatremia, pancytopenia.) Echocardiogram 04/07/2022 1. Left ventricular systolic function is normal with an ejection fraction by Biplane Method of Discs of 60 %. 2. Indeterminate diastolic function. 3. Right ventricle is moderately enlarged with normal systolic function. 4. There is moderate tricuspid valve regurgitation. 5. There is significant pulmonary hypertension, estimated right ventricle systolic pressure is 71 mmHg assuming a right atrial pressure of 15 mmHg. Hypovolemic hyponatremia: Concerning for related to diuretic use hydrochlorothiazide, Lasix and Aldactone Sodium 119 (no baseline available) Hold diuretics NS @ 75 mL/hr Serum osmolality Serial sodium levels Nephrology consult, will follow up nephrology recommendations Last sodium check 124 Patient is alert oriented x3 Pancytopenia: WBC 3.97 --> 2.8 Hgb 9.9->9.5 Platelets 123->130 >115 Heme/onc consulted, appreciate input Iron studies appear to be within normal limits folate elevated Essential HTN: Hold diuretics. Continue Norvasc and hydralazine GERD: Pantoprazole Physical deconditioning PT OT and social service consulted for discharge plan Family Contact Information Code Status: Full Code - Unverified Quality Measures DVT Prophylaxis: Win Catheter: Disposition Discharge Location: TBD Estimated Discharge Date: TBD Outpatient Testing: TBD Subjective Patient laying comfortably in the bed. Denied any chest pain shortness of breath lightheadedness dizziness. Discussed with daughter at bedside. Discussed with EP. Review of Systems All systems have been reviewed and are negative except as noted in HPI or below Objective BP (!) 154/76 Pulse 76 Temp 98.1 F (36.7 C) (Oral) Resp 16 Ht 6' Wt 82.9 kg (182 lb 12.2 oz) SpO2 97% BMI 24.79 kg/m Physical Examination General Appearance: alert; acute on chronically ill appearing; in no acute distress HEENT: Head-left periorbital hematoma. Eyes- EOMI, sclera anicteric; Ears- hearing intact; Nose- no nasal discharge; Throat- mucous membranes moist Cardiovascular: regular rate and rhythm; normal S1, S2; no murmurs, rubs, clicks or gallops; no peripheral edema Respiratory: lungs clear to auscultation; without wheezes, rales or rhonchi; on room air Abdomen: soft, non-tender, non-distended; positive bowel sounds Neurological: oriented x 3; normal speech; no focal findings or movement disorder noted Musculoskeletal: no significant deformity or tenderness to palpation Skin: skin tear of his right elbow, right hand, left hand, left cheek, and an abrasion to his left forehead covered cost appear to be dry Psych: normal mood and affect Results/Medications Reviewed 04/08/2022 3:30 PM Laboratory, Medications, and Transcriptions Occupational Therapy OCCUPATIONAL THERAPY TREATMENT NOTE Skilled Therapy Needs After Discharge Anticipate Resolution of Current Assessment Limitations Including: Pain, Mechanical Barriers, Social Support Are Skilled Therapy Services Needed After Discharge: Yes Intensity of Skilled Therapy: 2-3 days per week (If family able to assist at discharge) Anticipated Duration of Skilled Therapy: Duration 7 - 10 days DME Recommendation: (TBD) Rehab Potential: Good Outcomes Measures Prior Function Daily Activity Raw Score: 24 Prior Function Daily Activity % Impaired: 0% AM-PAC Daily Activity Raw Score: 18 AM-PAC Daily Activity % Impaired: 46.65% Activity Tolerance Activity Tolerance: Tolerates 30 min acitivty with multiple rests Therapy Precautions Orthotic Devices: No Weight Bearing Status: WFL General Rehab Precautions: Fall risk Cognition Overall Cognitive Status: Within Functional Limits Arousal/Alertness: Appropriate responses to stimuli Orientation Level: Oriented X4 Executive functioning: WFL Safety Judgment: Decreased awareness of need for assistance, Decreased awareness of need for safety Problem Solving: Assistance required to identify errors made, Assistance required to generate solutions, Assistance required to implement solutions Attention: Attends to quiet environment Hearing Status: Hard of hearing Social Interaction: WFL Comments: Followed all commands throughout session. ADL Grooming: Contact guard assist (stood @ sink for 23 min for completion of oral care, face washing, and librado care. CGA provided secondary to pt having two LOB posteriorly with CGA needed to correct.) Grooming - Skilled Intervention Provided: environmental setup/modification Grooming - For: fall prevention Grooming - Resulting In: improved activity tolerance, improved participation in ADL task Lower Body Dressing: Moderate assist (Min A to doff socks. Mod A to don. Min A to don brief over feet and to waist.) Lower Body Dressing - Skilled Intervention Provided: monitored patient's safety & tolerance Lower Body Dressing - For: UE positioning, LE management, fall prevention (attmepted use fo figure four technique.) Lower Body Dressing - Resulting In: improved participation in ADL task Toileting: Dependent (pt was incontinent of urine in standing. Able to complete librado care in standing.) Functional Mobility: Contact guard assist (amb to and from bathroom with FWW) Functional Mobility - Skilled Intervention Provided: verbal cues, monitoring patient response with activity Functional Mobility - For: fall prevention, increased participation in mobility task Functional Mobility - Resulting In: improved activity tolerance, increased initiation/participation in mobility task(s) Bed Mobility Supine to Sit: Stand by assist, Head of bed elevated Software Engineer: bedrails Skilled Intervention Provided: monitoring patient response with activity For: safe use of bedrails and/or equipment, safety during functional task(s) Resulting In: improved activity tolerance, increased initiation in mobility task(s) Functional Transfers Sit to Stand: Stand by assist Bed to Chair Transfers: Contact guard assist Toilet Transfers: Contact guard assist, to/from toilet with elevated seat height, Grab bars Software Engineer: wheeled walker Skilled Intervention Provided: verbal cues, monitoring patient response with activity For: fall prevention, increased participation in mobility task, safety during functional task(s) Resulting In: increased initiation/participation in mobility task(s) Home Living Obtained Home Living and PLOF info from: Patient Lives With: Alone Type of Home: House Home Layout: One level Steps to enter home: Yes Rails to enter home: 2 rails Number of stairs to enter home: 3 Bathroom Shower/Tub: Tub/shower unit Bathroom Toilet: Standard Bathroom Equipment: Grab bars in shower Mobility Equipment: Cane, Wheeled walker ADL Equipment: Long handled shoe horn Prior Level of Function Receives Help From: Family Level of [place] - Transfers/Ambulation/Mobility: Independent with functional transfers, Independent with household ambulation, Independent with community ambulation Level of [place] - ADLs: Independent Level of [place] - Homemaking: Independent Driving: Patient drives For complete objective data, detailed plan of care and patient education refer to: OT Evaluation flowsheet, OT Evaluation and Treatment flowsheet, OT Treatment flowsheet, patient Plan of Care, Plan of Care progress note, and Patient Education. This note stands as the current Discharge Summary upon patient discharge from the hospital or completion of Occupational Therapy Plan of Care. NEPHROLOGY PROGRESS NOTE [facility] Patient Name: Salvador Glass Admit Date: [id number] MR #: [id number] : 1940 ASSESSMENT/PLAN: Hyponatremia: hypovolemic hyponatremia related to diuretic use (hydrochlorothiazide, Lasix, and Aldactone). Continue to hold diuretics. urine osmo not consistent with beer potomania. Sodium level slowly increasing with IVF but starting to get 3rd spacing. Will heplock IVF and give tolvaptan 7.5 mg x 1. Can monitor sodium level q 6 hours. Will aim for a sodium level for 130 for tomorrow. No need for 3% saline at this time. Neurologic status is stable. Syncope: patient does have Hx of AFib is on Toprol in the OP setting noted to have bradycardia may have some tachy-yimi. EP has been consulted. Fall with closed head injury: management per primary team, trauma team following. Pancytompenia: management per primary team Hem/Onc has been consulted. Subjective: Denies any new complaint Review of Systems: ROS otherwise reviewed and negative Physical Examination: Vitals: Vitals: 04/07/22 1936 04/07/22 2158 04/08/22 0420 04/08/22 0817 BP: (!) 126/59 125/60 (!) 164/70 BP Location: Left arm Pulse: (!) 52 (!) 55 65 Resp: 15 17 16 16 Temp: 98.4 F (36.9 C) 98.5 F (36.9 C) 97.9 F (36.6 C) TempSrc: Oral Oral Oral SpO2: 99% 98% Weight: Height: Intake/Output last 3 shifts: Intake/Output Summary (Last 24 hours) at 04/08/2022 1152 Last data filed at 04/08/2022 1100 Gross per 24 hour Intake 240 ml Output 2725 ml Net -2485 ml I/O last 3 completed shifts: In: 740 [P.O.:240; IV Piggyback:500] Out: 2525 [Urine:2525] General: No acute distress HEENT: Anicteric Neck: Supple CV: Regular rate, no murmurs or rubs. No lower extremity edema Lungs: CTA B Abd: Soft, nontender, bowel sounds present Extr: good LE perfusion, no cyanosis Results/Medications Reviewed 04/08/22 11:52 AM: Laboratory, Microbiology, Pathology, Radiology, Cardiology, Medications and Transcriptions reviewed Scheduled Meds: amLODIPine 5 mg Oral Daily aspirin 81 mg Oral Daily bacitracin zinc Topical Daily docusate sodium 100 mg Oral Daily hydrALAZINE 50 mg Oral TID pantoprazole 40 mg Oral Daily sodium chloride (PF) 5 mL Intravenous Q8H EVELYN tolvaptan 7.5 mg Oral Once Continuous Infusions: sodium chloride 0.9 % sodium chloride 0.9 % 50 mL/hr (04/08/22 1023) Results from last 7 days Lab Units 04/08/22 0845 04/07/22 0507 04/06/22 2142 WBC K/mcL 2.82* 3.39* 3.97* HGB g/dL 9.5* 9.4* 9.9* HCT % 26.5* 26.9* 28.9* PLT K/mcL 115* 130* 123* Results from last 7 days Lab Units 04/08/22 0845 04/08/22 0759 04/08/22 0445 04/07/22 1208 04/07/22 0506 04/06/22 2142 SODIUM mmol/L 124* 124* 124* 124* < > 121* 121* 119* POTASSIUM mmol/L -- -- 3.9 -- 4.4 4.0 CHLORIDE mmol/L -- -- 94* -- 90* 87* BICARB mmol/L -- -- 21 -- 16* 20* BUN mg/dL -- -- 8 -- 8 11 CREATININE mg/dL -- -- 0.67* -- 0.61* 0.87 EGFR mL/min/1.73 m2 -- -- 95 -- 98 88 GLUCOSE mg/dL -- -- 104* -- 92 105* CALCIUM mg/dL -- -- 8.5 -- 8.3* 8.7 MAGNESIUM mg/dL -- -- -- -- 1.7 1.8 PHOSPHORUS mg/dL -- -- -- -- 2.9 -- < > = values in this interval not displayed. Urinalysis Results from last 7 days Lab Units 04/07/22 0039 COLOR, UR Yellow CLARITY, UR Clear SPEC GRAV 1.013 PH, UR 5.5 GLUCOSE, UR mg/dL Negative KETONES, UR mg/dL Trace* BILIRUBIN, UR Negative UROBILINOGEN, UR mg/dL <2.0 BLOOD, UR Negative NITRITE, UR Negative LEUK BOLIVAR, UR Negative MUCUS, UR /lpf Rare WBC, UR /hpf <1 BACTERIA, UR /hpf None Seen HYALINE CASTS /lpf 0-2 CREATININE UR mg/dL 53.1 Electrophysiology Inpatient Follow-up Heart & Vascular [facility] 04/08/2022 Beena Worthy, GRETA [facility] Patient: Salvador Glass Date of : 1940 (81 y.o.) PCP: Walter Munguia MD Assessment: Salvador Glass is a 81 year old male with: + syncope and facial trauma at home 04/06/22 + hx of atrial fibrillation for years + not on OAC at home, pt refuses and declined Cardioversion in the past (as far back as 03/2019). Takes aspirin 81 mg daily + Currently has pancytopenia with heme/onc consutled + EF 60% on echo 04/07/22 + LA severely enlarged and RA enlarged on echo 04/07/22 + moderate TVR with significant RVSP 71 mm Hg on echo 04/07/22 + RV moderately enlarged on echo 04/07/22 + no known CAD NM myocardial perfusion 03/28/19: no ischemia , EF 74% + hyponatremia on admission ( Na 121 on 04/07, 124 on 04/08) Nephrology consulted +diagnosed with cirrhosis in [place] May 2021 -new info 04/08/22 re: alcohol use (4-6 rum and cokes daily), Abd Ultrasound 04/08/22 1. Spleen is enlarged. 2. Abnormal hepatic echotexture is an indication of underlying liver disease often fatty infiltration. 3. 10 x 10 x 14 mm relatively hypoechoic posterior aspect lateral segment left hepatic lobe finding is indeterminate. 4. No gallstones or biliary dilatation. 5. No ascites. PRR/pji Echo 04/07/22 1. Left ventricular systolic function is normal with an ejection fraction by Biplane Method of Discs of 60 %. 2. Indeterminate diastolic function. 3. Right ventricle is moderately enlarged with normal systolic function. 4. There is moderate tricuspid valve regurgitation. 5. There is significant pulmonary hypertension, estimated right ventricle systolic pressure is 71 mmHg assuming a right atrial pressure of 15 mmHg. Plan 04/07/2022: reviewed with Dr Haji - will monitor heart rhythm for now - continue to hold HR limiting meds (coreg 6.25. mg BID at home being held) -When metabolic issues resolve, will place a pacemaker (likely Micra) prior to discharge -Echo results pending - See above -Sodium remains low at 121 today -Watch Hgb/ 9.4/26.9 & platelets 130 today - will likely consider Watchman as an outpt -Goal K 4.0-4.7, Potassium today is 4.4 -Goal Mg 2.0-2.2 , Mg today is 1.7- HOSPITALISTS, please replace PLAN 04/08/2022: -sodium slowly improving (nephrology starting) -Remains pancytopenic: H/H stable at 9.5/26.5, platelets 115, -WBC 2.82-possibly due to cirrhosis- Has enlarged spleen on abd US today. -plan for Micra Pacemaker (possibly 04/14) Subjective Today 04/08/22 Patient denies palpitations, lightheadedness dizziness or shortness of breath today Imaging: I independently reviewed the Echo and telemetry and agree with the interpretation(s) with the following comments. ECG 12 Lead Final Result by Interface, Lab Results In [place] [facility] (04/07/2022 2208) Echocardiogram complete w contrast Final Result by Jane Cosby MD (04/07/2022 1240) Echocardiogram complete Final Result by Shwetha Carr MD (03/28/2019 0851) Review of Systems: All system(s) were reviewed. Pertinent positive and negative findings are noted in the HPI. All system negative unless otherwise noted in the HPI Current Facility-Administered Medications: acetaminophen (TYLENOL) tablet 650 mg, 650 mg, Oral, Q6H PRN, Connor Romero MD, 650 mg at 04/07/222044 aluminum-magnesium hydroxide-simethicone (MAALOX PLUS) 200-200-20 mg/5 mL suspension 30 mL, 30 mL, Oral, Q4H PRN, Connor Romero MD amLODIPine (NORVASC) tablet 5 mg, 5 mg, Oral, Daily, Connor Romero MD, 5 mg at 04/08/22 09 aspirin EC tablet 81 mg, 81 mg, Oral, Daily, Connor Romero MD, 81 mg at 04/08/22 09 bacitracin zinc ointment, , Topical, Daily, Kim Rizzo CNP, Given at 04/08/22 09 bisacodyL (DULCOLAX) suppository 10 mg, 10 mg, Rectal, Daily PRN, Connor Romero MD docusate sodium (COLACE) capsule 100 mg, 100 mg, Oral, Daily, Connor Romero MD, 100 mg at 04/08/22 0957 hydrALAZINE (APRESOLINE) tablet 50 mg, 50 mg, Oral, TID, Connor Romero MD, 50 mg at 04/08/22 0957 magnesium hydroxide (MOM) 400 mg/5 mL suspension 2,400 mg, 30 mL, Oral, Daily PRN, Connor Romero MD melatonin tablet 3 mg, 3 mg, Oral, Nightly PRN, Connor Romero MD ondansetron (ZOFRAN-ODT) disintegrating tablet 4 mg, 4 mg, Oral, Q6H PRN OR ondansetron (ZOFRAN) injection 4 mg, 4 mg, Intravenous, Q6H PRN, Connor Romero MD pantoprazole (PROTONIX) EC tablet 40 mg, 40 mg, Oral, Daily, Connor Romero MD, 40 mg at 04/08/22 0957 perflutren lipid microspheres (DEFINITY) 0.143 mg/mL solution 0-10 mL of mixture, 0-10 mL of mixture, Intravenous, Once in imaging, Shwetha Carr MD, 2 mL of mixture at 04/07/22 1027 senna (SENOKOT) tablet 8.6 mg, 1 tablet, Oral, BID PRN, Connor Romero MD Saline lock IV, , , Continuous AND sodium chloride (PF) (NS) flush 5 mL, 5 mL, Intravenous, PRN AND sodium chloride (PF) (NS) flush 5 mL, 5 mL, Intravenous, Q8H EVELYN, 5 mL at 04/07/22 0626 AND sodium chloride 0.9% (NS), 0-150 mL/hr, Intravenous, PRN, Connor Romero MD sodium chloride 0.9% (NS), 50 mL/hr, Intravenous, Continuous, Rosie Schwarz CNP, Last Rate: 100 mL/hr at 04/07/22 2157, 100 mL/hr at 04/07/222156 tolvaptan (SAMSCA) tablet 7.5 mg, 7.5 mg, Oral, Once, Rosie Schwarz CNP traZODone (DESYREL) tablet 50 mg, 50 mg, Oral, Nightly PRN, Connor Romero MD Objective: Physical Examination: Blood pressure (!) 164/70, pulse 65, temperature 97.9 F (36.6 C), temperature source Oral, resp. rate 16, height 6', weight 82.9 kg (182 lb 12.2 oz), SpO2 98 %. Telemetry: atrial fib 50-60's with longest pause 3.8 sec during sleep hours Constitutional Alert and oriented X3 in no acute distress. Daughter at bedside. Head: normocephalic. Neck: No masses noted HEENT Anicteric, left facial swelling and ecchymosis Heart:. Irreg, Normal Intensity S1 and S2. No murmurs. Lungs: Clear to auscultation. Good air movement. No crackles noted. Abdomen is soft and nontender. Extremities: Extremities are warm. No peripheral edema. Adequate peripheral pulses. Skin: Warm, dry, thin and fragile skin with multiple ecchymotic areas on upper extremities and chest. Left facial ecchymosis Neuro: nonfocal Psych pleasant and cooperative Lab Results Component Value Date GLUCOSE 104 (H) 04/08/2022 CALCIUM 8.5 04/08/2022 NA 124 (L) 04/08/2022 K 3.9 04/08/2022 CL 94 (L) 04/08/2022 BUN 8 04/08/2022 CREATININE 0.67 (L) 04/08/2022 Lab Results Component Value Date WBC 2.82 (L) 04/08/2022 HGB 9.5 (L) 04/08/2022 HCT 26.5 (L) 04/08/2022 MCV 89.2 04/08/2022 PLT 115 (L) 04/08/2022 RBC 2.97 (L) 04/08/2022 Lab Results Component Value Date ALT 26 04/06/2022 AST 25 04/06/2022 ALKPHOS 91 04/06/2022 BILITOT 1.9 (H) 04/06/2022 Serum creatinine: 0.67 mg/dL (L) 04/08/22 0445 Estimated creatinine clearance: 98.1 mL/min (A) [facility] [place] PROGRESS NOTE Assessment and Plan Salvador Glass is a 81 y.o. male patient of Walter Munguia MD with history of atrial fibrillation, HTN, leukopenia, who presented with fall. Hyponatremia: Concerning for related to diuretic use hydrochlorothiazide, Lasix and Aldactone Sodium 119 (no baseline available) Hold diuretics NS @ 75 mL/hr Serum osmolality Serial sodium levels Nephrology consult, will follow up nephrology recommendations Last sodium check 119 Patient is alert oriented x3 Pancytopenia: WBC 3.97 Hgb 9.9->9.4 Platelets 123->130 We will obtain peripheral blood smear Heme/onc consult Check iron studies, B12, folate, reticulocyte count, hepatic panel Iron studies appear to be within normal limits folate elevated Fall: Closed head injury: CT head, neck, maxillofacial w/o contrast is non-acute except moderate left periorbital soft tissue swelling with mild soft tissue swelling visualized tracking along the left maxillary region CXR non-acute PT/OT Care management Appreciate trauma evaluation none of the lacerations requiring closure at this time Recommended local wound care with Adaptic daily to all this regions Essential HTN: Hold diuretics. Continue Norvasc and hydralazine GERD: Pantoprazole Chronic atrial fibrillation w/ slow ventricular response: Unsure if this could have contributed to fall Cardiology consult Hold Coreg Cardiac monitoring Family Contact Information Code Status: Full Code - Unverified Quality Measures DVT Prophylaxis: Win Catheter: Disposition Discharge Location: TBD Estimated Discharge Date: TBD Outpatient Testing: TBD Subjective Patient laying in bed appears to be comfortable however multiple abrasions noted skin tear on elbow right hand, left hand left cheek and frontal forehead, he appears to be alert oriented x3 no distress Review of Systems All systems have been reviewed and are negative except as noted in HPI or below Objective BP (!) 142/61 Pulse (!) 58 Temp 97.5 F (36.4 C) (Oral) Resp 15 Ht 6' Wt 82.9 kg (182 lb 12.2 oz) SpO2 98% BMI 24.79 kg/m Physical Examination General Appearance: alert; acute on chronically ill appearing; in no acute distress HEENT: Head- normocephalic; Eyes- EOMI, sclera anicteric; Ears- hearing intact; Nose- no nasal discharge; Throat- mucous membranes moist Cardiovascular: regular rate and rhythm; normal S1, S2; no murmurs, rubs, clicks or gallops; no peripheral edema Respiratory: lungs clear to auscultation; without wheezes, rales or rhonchi; on room air Abdomen: soft, non-tender, non-distended; positive bowel sounds Neurological: oriented x 3; normal speech; no focal findings or movement disorder noted Musculoskeletal: no significant deformity or tenderness to palpation Skin: skin tear of his right elbow, right hand, left hand, left cheek, and an abrasion to his left forehead covered cost appear to be dry Psych: normal mood and affect Results/Medications Reviewed 04/07/2022 11:55 AM Laboratory, Medications, and Transcriptions documented in this encounter [facility] 04-15-2022 Hospital course Narrative [facility] [place] DISCHARGE SUMMARY Salvador Glass Admitted: 04/06/2022 Discharge Date: 04/15/22 PCP Handoff Recommended Outpatient Testing 30 day VAL Results Pending At Discharge None Clinical Summary Salvador Glass is a 81 y.o. male patient of Walter Munguia MD with history of atrial fibrillation, HTN, leukopenia, who presented with fall. Fall: Closed head injury: Left periorbital hematoma Most likely fall secondary to presyncope secondary to slow A. fib. ? Alcohol abuse. CT head, neck, maxillofacial w/o contrast is non-acute except moderate left periorbital soft tissue swelling with mild soft tissue swelling visualized tracking along the left maxillary region CXR non-acute PT/OT Care management Appreciate trauma evaluation none of the lacerations requiring closure at this time Recommended local wound care with Adaptic daily to all this regions PT OT eval for placement Chronic atrial fibrillation w/ slow ventricular response: Most likely contributing to his fall. Patient refusing anticoagulation. EP consulted Micra pacemaker initially planned for Wednesday04/14/2022 after stabilization of patient's clinical condition (hyponatremia, pancytopenia.) Then canceled due to improving bradycardia. Plan for Holter monitor as an outpatient. Follow-up with cardiology/EP. 30 day VAL given to patient today to assess for pauses > 5 seconds (pt is in afib). Unsure at this time if syncopal episode was caused from pause, it may have been due to hyponatremia or alcohol use. If patient has pauses lasting longer than 5 seconds during wake hours or if patient is symptomatic with pauses, patient will need micra pacemaker. Echocardiogram 04/07/2022 1. Left ventricular systolic function is normal with an ejection fraction by Biplane Method of Discs of 60 %. 2. Indeterminate diastolic function. 3. Right ventricle is moderately enlarged with normal systolic function. 4. There is moderate tricuspid valve regurgitation. 5. There is significant pulmonary hypertension, estimated right ventricle systolic pressure is 71 mmHg assuming a right atrial pressure of 15 mmHg. Hypovolemic hyponatremia: Concerning for related to diuretic use hydrochlorothiazide, Lasix and Aldactone along with alcohol use Nephrology consulted managing IV fluids and electrolyte replacement. Status post tolvaptan. Closely monitor electrolytes Last sodium check 132->129 Nephrology following continue 1500 mL restriction of water, sodium chloride 1 g 3 times a day. Started Lasix 20 mg daily yesterday however sodium dropped to 129, urine studies consistent with natruiresis therefore nephrology discontinue Lasix Pancytopenia probably secondary to alcoholic liver cirrhosis Alcoholic cirrhosis WBC 3.97 --> 2.8 --> 2.5 > 2.1->2 Hgb 9.9->9.5 ..> 8.5 > 8.6->8.2 Platelets 123->130 >115 > 83> 96 > 112->110 Heme/onc consulted, appreciate input, no need for bone marrow biopsy. Hepatitis viral panel unremarkable. Iron study, B12 folate and myeloma panel unremarkable. CT abdomen pelvis shows cirrhotic liver. Previously described 1 cm left liver lesion not visualized. Mild ileus noted. 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 Discussed in length option about cessation. Root of the problem might be depression from his passing last July. I offered behavioral medicine patient refused. Discussed in length with daughter at bedside to monitor him at home and help him as needed. Consideration for addiction medicine as an outpatient if patient agree Constipation -Patient on Colace and MiraLAX daily -dulcolax suppository as needed Essential HTN: Hold diuretics. Continue Norvasc and hydralazine Discharge Medications Discharge Medications New Medications Details sodium chloride 1,000 mg Tbso Take 1 (one) tablet (1,000 mg total) by mouth 3 (three) times a day with meals . Quantity: 90 tablet Modified Medications Details hydrALAZINE 50 MG tablet Commonly known as: APRESOLINE What changed: how much to take Take 0.5 (one-half) tablet (25 mg total) by mouth 3 (three) times a day . Quantity: 45 tablet Medications To Continue Details amLODIPine 5 MG tablet Commonly known as: NORVASC Take 5 mg by mouth daily . aspirin 81 MG EC tablet Take 1 (one) tablet (81 mg total) by mouth daily . b complex vitamins capsule Take 1 capsule by mouth daily . calcium carbonate 168 mg calcium (420 mg) Chew Chew and Swallow daily as needed . clobetasoL 0.05 % scalp solution Commonly known as: TEMOVATE Apply topically daily Apply thin film onto dry scalp affected areas only. Leave in place for 15 min before lathering and rinsing. . hydrocortisone 1 % cream Apply topically 2 (two) times a day . ketoconazole 2 % cream Commonly known as: NIZORAL APPLY CREAM TOPICALLY TO AFFECTED AREA TWICE DAILY pantoprazole 40 MG tablet Commonly known as: PROTONIX Take 1 (one) tablet (40 mg total) by mouth daily . triamcinolone 0.1 % cream Commonly known as: KENALOG Apply topically 2 (two) times a day Reasons: Psoriasis of Scalp. Stopped Medications carvediloL 6.25 MG tablet Commonly known as: COREG furosemide 40 MG tablet Commonly known as: LASIX hydroCHLOROthiazide 25 MG tablet Commonly known as: HYDRODIURIL lisinopriL 2.5 MG tablet Commonly known as: PRINIVIL,ZESTRIL spironolactone 25 MG tablet Commonly known as: ALDACTONE Physician(s) Follow Up: [facility] [address] [place] [id number] T [phone] F [phone] Meghan Stokes MD [address] [place] [id number] Follow up Please set up an appointment previous to discharge Condition at Discharge: Stable Disposition: Home with Home Health On day of discharge, I performed a final bedside evaluation including a physical exam. I reviewed discharge recommendations with the patient in person. Patient instructions, including activity, were given to the patient/family at discharge. Time spent on discharge: < 30 minutes Completed by: Elza Mckay on 04/15/22, 1:53 PM documented in this encounter [facility] 04-15-2022 Note Formatting of this n ote might be different from the original. Problem: Pain Goal: Manage acute pain Outcome: Partially Met Goal: Manage chronic pain Outcome: Partially Met Goal: Reduced pain sensation Outcome: Partially Met Goal: Achievement of comfort function goal Outcome: Partially Met Problem: Falls, Risk of Goal: Absence of falls Outcome: Partially Met [facility] 04-15-2022 Miscellaneous Notes Problem: Pain Goal: Manage acute pain Outcome: Partially Met Goal: Manage chronic pain Outcome: Partially Met Goal: Reduced pain sensation Outcome: Partially Met Goal: Achievement of comfort function goal Outcome: Partially Met Problem: Falls, Risk of Goal: Absence of falls Outcome: Partially Met Problem: Pain Goal: Manage acute pain Outcome: Partially Met Pt has had no c/o pain this shift Pain meds available prn Problem: Falls, Risk of Goal: Absence of falls Outcome: Partially Met High risk for falls; recent fall at home. Up with 1 assist. Siderails up x3 Bed exit alarm in use. Bed in lowest position Problem: Falls, Risk of Goal: Absence of falls Outcome: Partially Met Problem: Pain Goal: Manage acute pain Outcome: Partially Met Goal: Manage chronic pain Outcome: Partially Met Goal: Reduced pain sensation Outcome: Partially Met Goal: Achievement of comfort function goal Outcome: Partially Met Problem: Pain Goal: Manage acute pain Outcome: Partially Met Goal: Manage chronic pain Outcome: Partially Met Goal: Reduced pain sensation Outcome: Partially Met Goal: Achievement of comfort function goal Outcome: Partially Met Problem: Falls, Risk of Goal: Absence of falls Outcome: Partially Met Problem: Pain Goal: Manage acute pain Outcome: Partially Met Goal: Manage chronic pain Outcome: Partially Met Goal: Reduced pain sensation Outcome: Partially Met Goal: Achievement of comfort function goal Outcome: Partially Met Problem: Falls, Risk of Goal: Absence of falls Outcome: Partially Met Problem: Pain Goal: Manage acute pain Outcome: Partially Met Goal: Manage chronic pain Outcome: Partially Met Goal: Reduced pain sensation Outcome: Partially Met Goal: Achievement of comfort function goal Outcome: Partially Met Problem: Falls, Risk of Goal: Absence of falls Outcome: Partially Met Plan of Care Reviewed Problem: Pain Goal: Manage acute pain Outcome: Partially Met Goal: Manage chronic pain Outcome: Partially Met Goal: Reduced pain sensation Outcome: Partially Met Goal: Achievement of comfort function goal Outcome: Partially Met Problem: Falls, Risk of Goal: Absence of falls Outcome: Partially Met Problem: Pain Goal: Manage acute pain Outcome: Partially Met Goal: Manage chronic pain Outcome: Partially Met Goal: Reduced pain sensation Outcome: Partially Met Goal: Achievement of comfort function goal Outcome: Partially Met Problem: Falls, Risk of Goal: Absence of falls Outcome: Partially Met Plan of Care Reviewed OCCUPATIONAL THERAPY VISIT VARIANCE NOTE Attempted to see patient at this time, but unable secondary to: Patient Unavailable (secondary to receiving nursing care). Will follow up as appropriate. Electrophysiology Progress Note [facility] EP Sign-Off Discharge Medications: Continue current cardiac medications at current doses, unlimited duration. Follow-up Imaging, Testin day VAL will be given to patient Follow-up Appointments: Follow up with EP in 3 months Additional Instructions Reviewed with Patient and/or Family: Compliance with follow-up. Assessment: Salvador Glass is a 81 year old male with: + syncope and facial trauma at home 04/06/22 + hx of atrial fibrillation for years + not on OAC at home, pt refuses and declined Cardioversion in the past (as far back as 03/2019). Takes aspirin 81 mg daily + Currently has pancytopenia with heme/onc consutled + EF 60% on echo 04/07/22 + LA severely enlarged and RA enlarged on echo 04/07/22 + moderate TVR with significant RVSP 71 mm Hg on echo 04/07/22 + RV moderately enlarged on echo 04/07/22 + no known CAD NM myocardial perfusion 03/28/19: no ischemia , EF 74% + hyponatremia on admission ( Na 121 on 04/07, 124 on 04/08) Nephrology consulted +diagnosed with cirrhosis in [place] May 2021 -new info 04/08/22 re: alcohol use (4-6 rum and cokes daily), Abd Ultrasound 04/08/22 1. Spleen is enlarged. 2. Abnormal hepatic echotexture is an indication of underlying liver disease often fatty infiltration. 3. 10 x 10 x 14 mm relatively hypoechoic posterior aspect lateral segment left hepatic lobe finding is indeterminate. 4. No gallstones or biliary dilatation. 5. No ascites. PRR/pji Echo 04/07/22 1. Left ventricular systolic function is normal with an ejection fraction by Biplane Method of Discs of 60 %. 2. Indeterminate diastolic function. 3. Right ventricle is moderately enlarged with normal systolic function. 4. There is moderate tricuspid valve regurgitation. 5. There is significant pulmonary hypertension, estimated right ventricle systolic pressure is 71 mmHg assuming a right atrial pressure of 15 mmHg. Plan 04/07/2022: reviewed with Dr Haji - will monitor heart rhythm for now - continue to hold HR limiting meds (coreg 6.25. mg BID at home being held) -When metabolic issues resolve, will place a pacemaker (likely Micra) prior to discharge -Echo results pending - See above -Sodium remains low at 121 today -Watch Hgb/ 9.4/26.9 & platelets 130 today - will likely consider Watchman as an outpt -Goal K 4.0-4.7, Potassium today is 4.4 -Goal Mg 2.0-2.2 , Mg today is 1.7- HOSPITALISTS, please replace PLAN 04/08/2022: -sodium slowly improving (nephrology starting) -Remains pancytopenic: H/H stable at 9.5/26.5, platelets 115, -WBC 2.82-possibly due to cirrhosis- Has enlarged spleen on abd US today. -plan for Micra Pacemaker (possibly 04/14) PLAN 04/09/22: -Sodium is 124 this morning. Nephrology is following and managing. Mag 1.8, replacement ordered. -Heme/onc following for pantocytopenia -Longest lasting pause last evening was 3.44 seconds during sleep hours. Pt is in atrial fibrillation. -Discussed possible watchman procedure with patient, patient declines. Discussed the need for anticoagulation due to risk of stroke with afib, patient declines. Goal K 4.0-4.7 -Goal Mg 2.0-2.2 -Will continue to follow Plan 04/10/22: - Sodium 122 this morning. Hgb 8.5, platelets 83. WBC 2.57. -Pauses < 3 seconds during sleep hours noted on telemetry. -Will have 30 day VAL given to patient today to assess for pauses > 5 seconds (pt is in afib). Unsure at this time if syncopal episode was caused from pause, it may have been due to hyponatremia or alcohol use. If patient has pauses lasting longer than 5 seconds during wake hours or if patient is symptomatic with pauses, patient will need micra pacemaker. -Continue holding AV node blocking medications at this time (pt took carvedilol 6.25 mg bid at home) -Please call EP with further questions -Goal K 4.0-4.7 -Goal Mg 2.0-2.2 UPDATE 04/13: Patient remains in hospital, telemetry from over the weekend reviewed. Patient continues to have pauses, however longest lasting pause is 3 seconds. Patient remains in atrial fibrillation. Will continue with plan of 30 day VAL. Subjective: Mr. Glass denies chest pain, dyspnea, palpitations, peripheral swelling, or dizziness Objective: Vital signs in last 24 hours: Temp: [98.5 F (36.9 C)-100.5 F (38.1 C)] 98.5 F (36.9 C) Heart Rate: [57-83] 58 Resp: [16-18] 16 BP: (123-155)/(54-69) 128/60 Telemetry reviewed : Atrial fibrillation, HR 67 bpm Physical Exam: Constitutional: Alert, no acute distress HEENT: Anicteric Cardiac: Heart is irregular rate and irregular rhythm. No gallop or rub. No murmur noted Lungs: clear to ausculation bilaterally. Nonlabored respirations. Abdomen: soft Lower extremities: No edema. Skin: Ecchymosis scattered across chest, arms, and left side of face. Psych: pleasant, cooperative, does not appear depressed or anxious New cardiac test results if any: Imaging: Lab Review Today's available lab reviewed. Problem: Pain Goal: Manage acute pain Outcome: Not Met Goal: Manage chronic pain Outcome: Not Met Goal: Reduced pain sensation Outcome: Not Met Goal: Achievement of comfort function goal Outcome: Not Met Problem: Falls, Risk of Goal: Absence of falls Outcome: Not Met OCCUPATIONAL THERAPY VISIT VARIANCE NOTE Attempted to see patient at this time, but unable secondary to: Refused. Attempted x2 this date to provide OT intervention. Pt refused stating I did not sleep and I need to rest. Will follow up as appropriate. Problem: Pain Goal: Manage acute pain Outcome: Met Goal: Manage chronic pain Outcome: Met Goal: Reduced pain sensation Outcome: Met Goal: Achievement of comfort function goal Outcome: Met Problem: Falls, Risk of Goal: Absence of falls Outcome: Partially Met Restricted Alcohol/Drug Screening Date: 04/08/2022 Time: 10:13 AM This Note contains information protected by federal regulations (42 CFR Part 2) that require even greater restrictions than the rules for other medical records. The Part2 regulations even restrict how this information may be shared within [facility]. Accordingly, this information should NOT be viewed except by caregivers when needed for the limited purpose of diagnosing, treating or making a referral in relation to alcohol/drug abuse or by caregivers when needed to treat the patient in a medical emergency. The Part 2 regulations also have special rules regarding disclosure of this information. To ensure compliance with these rules, this Note should NOT be printed and released under any circumstance, unless released with valid authorization by the Health Information Management (HIM) Department. Patient Name: Salvador Glass Date of : 1940 Sex: Male Admit Date/Time: 04/06/2022 9:16 PM SCREENING TOOLS: AUDIT: AUDIT Screening Tool How often did you have a drink containing alcohol in the past year?: 4 or more times a week How many drinks containing alcohol do you have on a typical day when you are drinking?: 5 or 6 How often did you have five or more drinks on one occasion in the past year?: Less than monthly How often during the last year have you found that you were not able to stop drinking once you started?: Daily or almost daily How often during the last year have you failed to do what was expected of you because of drinking?: Never How often during the last year have you needed a first drink in the morning to get yourself going after a having drinking session?: Never How often during the last year have you had a feeling of guilt or remorse after drinking?: Never How often during the last year have you been unable to remember what happened the night before because of your drinking?: Never Have you or someone else been injured because of your drinking?: No Has a relative, friend, doctor, or other health care worker been concerned about your drinking or suggested you cut down?: Yes, during last year Audit Total Score: 15 AUDIT C: AUDIT C Screening Tool How often did you have a drink containing alcohol in the past year?: 4 or more times a week How many drinks containing alcohol do you have on a typical day when you are drinking?: 5 or 6 How often did you have six or more drinks on one occasion in the past year?: Less than monthly AUDIT-C Total Score: 7 CAGE: CAGE AID: ASSESSMENTS: Plan and Recommendations: In to see patient. SBIRT completed. Audit-C score is 7. Total Score 15. Alcohol lab not drawn upon admission. Patient reports he drinks for pleasure. Patient does not feel his alcohol use is an issue. Patient denied wanting any type of resources or follow up regarding alcohol use. Education provided. Disposition/Comments: Discharge plan uncertain, awaiting therapy evaluations. Problem: Actual or potential alteration in health Goal: Absence of healthcare acquired conditions Outcome: Partially Met Goal: Knowledge of Interdisciplinary Plan of Care Outcome: Partially Met Goal: Knowledge of Enviroment Outcome: Partially Met reviewed Associated Problem(s): Fall - Associated Problem(s): Abrasions of multiple sites - Attempted to call Lluvia Vela and Voicemail left for return call. CLYDE Alegria called to assess patient at bedside for bleeding from left side of head. Secure messaged Dr. Dawn to assess patient and was told Dr. Lares would come to bedside. Dr. Lares at bedside and placed orders for Trauma surgery. Was ordered to not touch the patients head wounds until Trauma evaluation. All there dressings on patients arms/hands were assessed and changed ATTEMPTED TO RECEIVE REPORT AT THIS TIME. RN DID NOT ANSWER, WILL ATTEMPT AGAIN documented in this encounter [facility] 04-15-2022 Note Formatting of this n ote might be different from the original. Problem: Pain Goal: Manage acute pain Outcome: Partially Met Pt has had no c/o pain this shift Pain meds available prn Problem: Falls, Risk of Goal: Absence of falls Outcome: Partially Met High risk for falls; recent fall at home. Up with 1 assist. Siderails up x3 Bed exit alarm in use. Bed in lowest position [facility] 04-14-2022 Note Formatting of this n ote might be different from the original. Problem: Falls, Risk of Goal: Absence of falls Outcome: Partially Met Problem: Pain Goal: Manage acute pain Outcome: Partially Met Goal: Manage chronic pain Outcome: Partially Met Goal: Reduced pain sensation Outcome: Partially Met Goal: Achievement of comfort function goal Outcome: Partially Met [facility] 04-13-2022 Consult note Associated Order (s): IP CONSULT TO HOME HEALTH HUB 04/13/22 3:39 PM - Liaison received a Home Health Hub consult for [facility] needs. Patient's agency choice is [facility] - [facility], awaiting response [facility] agency: Accepted or Pending Name of agency: PENDING Referrals sent to: (names of agencies) [facility] created for the following services: yes - SN/PT/OT Verify the demographics (residential address) yes What is the primary number to reach you? [phone] Who is your family physician/primary care physician? Dr. Walter Munguia [phone] Do you have a caregiver and/or teachable caregiver (list relationship, name & phone #)? lives alone Estimated Discharge Date (EDIS): 04/14 [facility] 04-13-2022 Consult note Associated Order (s): IP CONSULT TO HOME HEALTH HUB 04/13/22 3:39 PM - Liaison received a Home Health Hub consult for [facility] needs. Patient's agency choice is [facility] - [facility], awaiting response [facility] agency: Accepted or Pending Name of agency: PENDING Referrals sent to: (names of agencies) [facility] created for the following services: yes - SN/PT/OT Verify the demographics (residential address) yes What is the primary number to reach you? [phone] Who is your family physician/primary care physician? Dr. Walter Munguia [phone] Do you have a caregiver and/or teachable caregiver (list relationship, name & phone #)? lives alone Estimated Discharge Date (EDIS): 04/14 Physical Therapy PHYSICAL THERAPY EVALUATION and TREATMENT NOTE Dx: Hyponatremia Fall, closed head injury PHYSICAL THERAPY EVALUATION Skilled Therapy Needs After Discharge Are Skilled Therapy Services Needed After Discharge: Yes Intensity of Skilled Therapy: 5 to 7 days per week Anticipated Duration of Skilled Therapy: Duration 10 - 30 days DME Recommendation: Wheeled Walker, Tub seat (has both at home already) DME Rationale: Patient's condition prevents him/her from accomplishing ADL without recommended equipment, Patient's condition creates an increased risk of safety hazard without recommended equipment Rehab Potential: Good The patient's current AMPAC score does not reflect their needs at discharge. Patient can still benefit from the intensity of therapy services recommended: To continue progress toward functional independence Home living situation requires pt to be fully independent with functional mobility and ADLs For continued functional mobility training promoting increased safety in the home environment Outcomes Measures Prior Function - Basic Mobility Raw Score: 24 Points Prior Function - Basic Mobility % Impaired: 0% AM-PAC Basic Mobility Raw Score: 16 Points AM-PAC Basic Mobility % Impaired: 47.12% Physical Therapy Assessment History: The following factors influence the patient's participation in the PT plan of care: Personal Factors: Limited Compliance, Decreased Insight, Impulsive Behavior Environmental Factors: Lives alone, Steps to enter home The following co-morbidities (from this admission or prior) influence the patient's participation in this plan of care: See H & P Number of History elements affecting this patient's PT plan of care: 3 or more Examination of Body Systems: The patient presents with: Musculoskeletal impairments: Strength, Functional Endurance Neurologic Impairments: Balance, Hearing Cardiopulmonary Impairments: Activity Tolerance. These impairments result in limitations of Gait, Functional Transfers, Stair-Climbing, Safety, Safety Awareness, Activity Tolerance, Insight. These impairments result in restrictions of Household mobility, Community mobility, Leisure activities. Number of Body Systems elements affecting this patient's PT plan of care: 3 or more. Clinical Presentation: The patient's clinical presentation for this PT evaluation is evolving with changing characteristics as evidenced by current PT documentation. Activity Tolerance Activity Tolerance: Tolerates 20 - 30 min activity with multiple rests Therapy Precautions Orthotic Devices: No Weight Bearing Status: WFL General Rehab Precautions: Fall risk (possible geraldo pacer placement for 04/14/22 ( Kev Wallace CNP for cardiology gave permission 04/09/22 for PT evaluation to proceed ahead of micro pacer placement )) Balance Assessment Sitting Balance - Static: Modified independent, with bilateral UE support, with back unsupported Standing Balance - Static: Minimal assist, Contact guard assist, with bilateral UE support, with device Software Engineer - Standing Static: wheeled walker Loss of Balance- Standing Static: intermittent, posterior Standing Balance - Dynamic: Minimal assist, Contact guard assist Software Engineer - Standing Dynamic: wheeled walker Loss of Balance- Standing Dynamic: intermittent, posterior Bed Mobility Rolling: Contact guard assist, Head of bed flat Supine to Sit: Moderate assist, Head of bed flat (for trunk elevation) Sit to Supine: (NT: pt up in chair post PT eval ; Break away alarm donned/ armed) Software Engineer: (none to simulate home set up) Transfers Sit to Stand: Minimal assist (from EOB with difficulty with controlled transition of one hand at a time to walker) Bed to Chair: Minimal assist, Contact guard assist Stand Pivot Transfers: Minimal assist, Contact guard assist (mild impulsivity resulting in LOB with directional change) Software Engineer: wheeled walker Additional Transfer Trial 2: Yes Sit to Stand Trial 2: Minimal assist, Contact guard assist (from low chair with abimbola armrests) Software Engineer Trial 2: BUE, wheeled walker Gait/Locomotion Gait Assistance: Minimal assist, Contact guard assist Assistive Device: wheeled walker Distance: 35 Feet Rest Breaks: Yes Rest Break Position: seated Rest Break Duration: 3-4 mins Additional Gait Trial 2: Yes Gait Assistance Trial 2: Minimal assist, Contact guard assist Assistive Device Trial 2: wheeled walker Distance Trial 2: 35 Pattern: step to, step through, R decreased step length, L decreased step length, wide base of support, forward flexed, ataxic, decreased maggy (steps per minute) (pt maintains most of weight posteriorly on heels and on lateral sides of feet; minimal toe off bilaterally) Weight Bearing Status: able to maintain Gait Loss(es) of Balance: intermittent, posterior, multidirectional (lateral due to impulsivity especially with directional changes, decreased safety awareness and maintaining weight shifted primarily posteriorly onto heels during gait.) Environment/Terrain: open/community environment, multiple distractions Home Living Obtained Home Living and PLOF info from: Patient Lives With: Alone Type of Home: House Home Layout: One level (laundry on main floor) Steps to enter home: Yes Rails to enter home: 1 rail Number of stairs to enter home: 3 Bathroom Shower/Tub: Tub/shower unit, Main level, Walk-in bathtub Bathroom Toilet: Standard Bathroom Equipment: Grab bars in shower, Shower chair Mobility Equipment: Cane, Wheeled walker ADL Equipment: Long handled shoe horn Prior Level of Function Receives Help From: Family Level of [place] - Transfers/Ambulation/Mobility: Independent with functional transfers, Independent with household ambulation, Independent with community ambulation (without use of assistive device ORTHOPEDICS NURSE) Level of [place] - ADLs: Independent Level of [place] - Homemaking: Independent Driving: Patient drives Subjective Impression - Prior Function: sisters and son live nearby and pt reports they are able to assist at discharge. PHYSICAL THERAPY TREATMENT NOTE Total Treatment Time (Total Session Time): 35 Minutes Total Timed Code Treatment Minutes: 9 Minutes Neuromuscular Reeducation Standing Balance Treatment: weight shifting anterior, postural re-education Skilled Intervention Provided: patient education, verbal cues, neuromuscular re-education For: LE management, balance recovery, fall prevention, self-monitoring during activity, weight shifting Resulting in: improved activity tolerance, improved performance Gait Training Skilled Intervention Provided: patient education, verbal cues, monitoring patient response with activity For: attention to task, weight shifting, self-monitoring during activity, gait technique, improved posture, fall prevention, efficient movement, device management and safe use of device, LE management Resulting in: improved activity tolerance, improved performance Therapeutic Activities Bed Mobility Skilled Intervention Provided: patient education, verbal cues, monitoring patient response with activity, monitoring patient response with positional changes, facilitation, tactile cues, provided step by step instructions For: UE positioning, fall prevention, efficient movement, energy conservation, compensatory strategies, logroll technique, safety during functional tasks, self-monitoring during activity, sequencing of movement, weight shifting Resulting in: improved activity tolerance Transfers Skilled Intervention Provided: patient education, verbal cues, monitoring patient response with activity, monitoring patient response with positional changes For: UE positioning, UE management, fall prevention, efficient movement, energy conservation, controlled descent, safety during functional tasks, safe use of AD and/or equipment, self-monitoring during activity, sequencing of movement, weight shifting (proper body positioning in relation to chair prior to sitting) Resulting in: improved activity tolerance, improved performance, improved balance, improved safety Additional Treatment Details Kev Wallace, AOC DIRECTOR COMBAT OPERATIONS OFFICER for cardiology, gave permission for PT evaluation to proceed prior to micro pacer placement possibly 04/14/22. Patient educated on need for use of gait belt for safety with functional mobility, fall prevention, energy conservation, need for slow transitional movements and directional changes to decrease fall risk, safe/ proper use of assistive device, proper hand placement for transfer safety , proper, and safe mobility through verbal instruction and demonstration. Pt educated on need for patient to use call light to notify staff to assist with all functional transfers/mobility to maximize safety and decrease risk for falls. Patient educated on purpose, plan and goals for skilled PT services and initiation of discharge planning. Call light within patients reach. Nursing notified that patient is up in chair/ released to nursing with x1 assist with use of 2ww. Break away alarm on post PT evaluation. Pt verbalized understanding of education. Will continue to progress pt per POC. Past Medical History: Diagnosis Date Arrhythmia A Fib Bradycardia Hypertension Leukopenia Mild anemia Psoriasis Renal failure History reviewed. No pertinent surgical history. For complete objective data, detailed plan of care and patient education refer to: PT Evaluation flowsheet, PT Evaluation and Treatment flowsheet, PT Treatment flowsheet, patient Plan of Care, Plan of Care progress note, and Patient Education. This note stands as the current Discharge Summary upon patient discharge from the hospital or completion of Physical Therapy Plan. Associated Order(s): IP CONSULT TO CARE MANAGEMENT Addressed. Associated Order(s): IP CONSULT TO ONCOLOGY Oncology Inpatient Consult 04/08/2022 Meghan Stokes MD [facility] Patient: Salvador Glass Date of : 1940 (81 y.o.) Referring Provider: Refer to consult order in electronic medical record PCP: Walter Munguia MD ASSESSMENT/PLAN: Salvador Glass 81 y.o. male with history of Salvador Glass is a 81 y.o. male with a history of atrial fibrillation, hypertension, history of leukopenia, history of alcohol abuse who was admitted for hyponatremia and a fall at home. Oncology was consulted due to pancytopenia. Pancytopenia: Patient presented with mild pancytopenia. White count was low at 3.9, hemoglobin 9.9, platelets 123. We do not have any prior labs to compare this with and assess for chronicity. It seems like this has been present though as you mention possibly having low counts at his last lab check. The patient does drink alcohol daily and says he drinks 4-6 rum and Cokes daily and the daughter reports he was diagnosed with cirrhosis when he was in [facility] in May of last year. This could very likely be the etiology of his pancytopenia. B12 and folate levels were checked and are unremarkable. Iron studies are normal. -We will send the rest of his lab tests to assess for any other causes for pancytopenia. We will also order an ultrasound of the abdomen to assess for cirrhosis. -I encouraged him to consider cutting back and working on quitting drinking. Unclear if the fall was related to alcohol use as well. We discussed that the low sodium was likely exacerbated by his drinking as well. Hyponatremia: Present on admission. Nephrology is following and feel that this is consistent with hypovolemic hyponatremia related to diuretic use as he is on hydrochlorothiazide, Lasix, and Aldactone. I also discussed with him that this could be exacerbated by his alcohol use. -Chest x-ray was unremarkable. Could consider a CT of the chest to rule out an underlying lung malignancy. Will follow SUBJECTIVE: Reason for Consult: Pancytopenia History of Present Illness: Salvador Glass is a 81 y.o. male with a history of atrial fibrillation, hypertension, history of leukopenia, history of alcohol abuse who was admitted for hyponatremia and a fall at home. Oncology was consulted due to pancytopenia. The patient presented to the ER via EMS after having a fall at home. He says he was reaching down towards a painter touch up and must of fell. He does not recall the events surrounding what happened. He did have some weakness and dizziness for the past few days. When he presented his sodium was extremely low at 119. He had a CBC checked which noted a mildly low white count at 3.9, hemoglobin of 9.9, and platelets of 123. We have no prior labs to compare this with. He does follow with a PCP, Dr. Munguia in [place]. He was last seen in December. He reports that he was previously on aspirin but stopped this. He is not on any anticoagulation for his atrial fibrillation. This was discussed apparently when he was diagnosed about a year ago and he refused anticoagulation because he bruises easily. The patient denies any obvious bleeding but does have scattered ecchymoses. He does admit to drinking alcohol daily. He drinks 4-6 rum and Cokes daily and has done so for many years. His daughter reports that he was diagnosed with cirrhosis while in [facility] about a year ago. No other fevers, chills, adenopathy, night sweats, weight loss. He lost his in the last year. Pending Lab and Radiology Results Order Current Status Copper, Serum In process HIV 1/2 Screen (4th Generation) In process Hepatitis C Antibody In process IgG, IgA, IgM Immunoglobulins In process Immunofixation, Serum In process Immunoglobulin Free Light Chains,Blood In process LDH In process Protein Electrophoresis, Blood In process Sodium In process US Abdomen Complete In process Zinc In process Interpretation of Testing: I personally reviewed the Chest X-ray and agree with the interpretation(s). Review of Systems: General Constitutional: + Fatigue, denied fevers, chills, anorexia, weight loss, or night sweats Eyes: denied blurry vision ENT: denied nasal drainage, sinus pressure Mouth: denied oral ulcers Endocrine: unusual weight loss, heat or cold intolerance, polyuria, polydipsia, or hair loss/gain Lymphatics: no new adenopathy in cervical, supraclavicular, axillary, inguinal regions Respiratory: no cough, SOB CV: denied palpitations, chest pain/pressure, PND, orthopnea. GI: denied abd pain, n/v/d, constipation, melena. : denied dysuria, urgency, frequency or hematuria. Skin: no rashes or lesions Musculoskeletal: denied muscle/joint/bone pain Hematologic/lmmunologic: no adenopathy, bleeding, easy bruisiality or recurrent infection. Neurology: Denied new headaches, numbness or weakness of extremities Psych: denied anxiety, depression or mood swings Past Medical History: Diagnosis Date Arrhythmia A Fib Bradycardia Hypertension Leukopenia Mild anemia Psoriasis Renal failure History reviewed. No pertinent surgical history. Family History Problem Relation Age of Onset Emphysema Mother Diabetes Father Asthma Father Social History Tobacco Use Smoking Status Former Smokeless Tobacco Never Tobacco Comments quit in his 40s Additional History Comments: None Allergies: Patient has no known allergies. Current HOME Medications: No outpatient medications have been marked as taking for the 04/06/22 encounter (Hospital Encounter). Current HOSPITAL Medications: acetaminophen (TYLENOL) tablet 650 mg, 650 mg, Oral, Q6H PRN aluminum-magnesium hydroxide-simethicone (MAALOX PLUS) 200-200-20 mg/5 mL suspension 30 mL, 30 mL, Oral, Q4H PRN amLODIPine (NORVASC) tablet 5 mg, 5 mg, Oral, Daily aspirin EC tablet 81 mg, 81 mg, Oral, Daily bacitracin zinc ointment, , Topical, Daily bisacodyL (DULCOLAX) suppository 10 mg, 10 mg, Rectal, Daily PRN docusate sodium (COLACE) capsule 100 mg, 100 mg, Oral, Daily hydrALAZINE (APRESOLINE) tablet 50 mg, 50 mg, Oral, TID magnesium hydroxide (MOM) 400 mg/5 mL suspension 2,400 mg, 30 mL, Oral, Daily PRN melatonin tablet 3 mg, 3 mg, Oral, Nightly PRN ondansetron (ZOFRAN-ODT) disintegrating tablet 4 mg, 4 mg, Oral, Q6H PRN OR ondansetron (ZOFRAN) injection 4 mg, 4 mg, Intravenous, Q6H PRN pantoprazole (PROTONIX) EC tablet 40 mg, 40 mg, Oral, Daily perflutren lipid microspheres (DEFINITY) 0.143 mg/mL solution 0-10 mL of mixture, 0-10 mL of mixture, Intravenous, Once in imaging senna (SENOKOT) tablet 8.6 mg, 1 tablet, Oral, BID PRN Saline lock IV, , , Continuous AND sodium chloride (PF) (NS) flush 5 mL, 5 mL, Intravenous, PRN AND sodium chloride (PF) (NS) flush 5 mL, 5 mL, Intravenous, Q8H EVELYN AND sodium chloride 0.9% (NS), 0-150 mL/hr, Intravenous, PRN sodium chloride 0.9% (NS), 100 mL/hr, Intravenous, Continuous traZODone (DESYREL) tablet 50 mg, 50 mg, Oral, Nightly PRN OBJECTIVE: Physical Examination: BP (!) 164/70 Pulse 65 Temp 97.9 F (36.6 C) (Oral) Resp 16 Ht 6' Wt 82.9 kg (182 lb 12.2 oz) SpO2 98% BMI 24.79 kg/m ECOG 2-3 Gen: Elderly male, resting in bed HEENT: Left eye with ecchymosis and swelling, bandage over this. Anicteric sclera, MMM Neck: supple, no thyromegaly or LAD Lymphatics: no cervical, axillary, or inguinal adenopathy Chest: Mild basilar crackles, otherwise CTAB, no w/r/r, no respiratory distress CV: RRR, no m/r/g, normal S1, S2 Abd: soft, nontender, nondistended, +BS, no hepatosplenomegaly Ext: wwp, no c/c/e Skin: Scattered ecchymoses Neuro: Alert and oriented x4, no focal deficits, moves all four extremities Psych: Mood normal. Laboratory and Additional Data Reviewed: Reviewed 04/08/22 9:18 AM: Laboratory, Radiology, and Medications Lab Results Component Value Date WBC 2.82 (L) 04/08/2022 HGB 9.5 (L) 04/08/2022 HCT 26.5 (L) 04/08/2022 MCV 89.2 04/08/2022 PLT 115 (L) 04/08/2022 RBC 2.97 (L) 04/08/2022 Lab Results Component Value Date GLUCOSE 104 (H) 04/08/2022 CALCIUM 8.5 04/08/2022 NA 124 (L) 04/08/2022 K 3.9 04/08/2022 CL 94 (L) 04/08/2022 BUN 8 04/08/2022 CREATININE 0.67 (L) 04/08/2022 Lab Results Component Value Date ALT 26 04/06/2022 AST 25 04/06/2022 ALKPHOS 91 04/06/2022 BILITOT 1.9 (H) 04/06/2022 Occupational Therapy OCCUPATIONAL THERAPY EVALUATION Dx: Hyponatremia Fall, closed head injury Skilled Therapy Needs After Discharge Anticipate Resolution of Current Assessment Limitations Including: Pain, Mechanical Barriers, Social Support Are Skilled Therapy Services Needed After Discharge: Yes Intensity of Skilled Therapy: 2-3 days per week (If family able to assist at discharge) Anticipated Duration of Skilled Therapy: Duration 7 - 10 days DME Recommendation: (TBD) Rehab Potential: Good Outcomes Measures Prior Function Daily Activity Raw Score: 24 Prior Function Daily Activity % Impaired: 0% AM-PAC Daily Activity Raw Score: 18 AM-PAC Daily Activity % Impaired: 46.65% Occupational Therapy Assessment The patient's current functional participation deficits are grooming, UE dressing, LE dressing, bathing, toileting, home management, meal preparation, functional mobility, driving. This reduced independence will limit their life roles of premorbid level individual, family member. The patient's co morbidities do affect patient performance in the above activities and roles. The performance deficits are a result of musculoskeletal impairment(s) in generalized debility including strength, balance, acitvity tolerance, pain, , and knowledge deficit. The patient's family / caregiver support is a operations management professionals for return to prior level of function. The patient's compliance is a operations management professionals to return to prior level of function. During the assessment, minimal to moderate modification of task was required and several treatment options were identified in the plan of care. This consultation required expanded review of the medical and therapy history. Activity Tolerance Activity Tolerance: Tolerates 10 - 20 min activity with multiple rests Therapy Precautions Orthotic Devices: No Weight Bearing Status: WFL General Rehab Precautions: Fall risk Cognition Overall Cognitive Status: Within Functional Limits Arousal/Alertness: Appropriate responses to stimuli Orientation Level: Oriented X4 Executive functioning: [facility] Safety Judgment: Decreased awareness of need for assistance, Decreased awareness of need for safety Problem Solving: Assistance required to generate solutions Attention: Attends to quiet environment Hearing Status: Hard of hearing Social Interaction: [facility] ADL Grooming: Set-up Toileting: (declines need) Functional Mobility: Contact guard assist, Adaptive equipment (side steps to the right toward HOB. No LOB noted) Bed Mobility Supine to Sit: Stand by assist Sit to Supine: Stand by assist Functional Transfers Sit to Stand: Stand by assist Bed to Chair Transfers: Contact guard assist Software Engineer: wheeled walker Home Living Obtained Home Living and PLOF info from: Patient Lives With: Alone Type of Home: House Home Layout: One level Steps to enter home: Yes Rails to enter home: 2 rails Number of stairs to enter home: 3 Bathroom Shower/Tub: Tub/shower unit Bathroom Toilet: Standard Bathroom Equipment: Grab bars in shower Mobility Equipment: Cane, Wheeled walker ADL Equipment: Long handled shoe horn Prior Level of Function Receives Help From: Family Level of [place] - Transfers/Ambulation/Mobility: Independent with functional transfers, Independent with household ambulation, Independent with community ambulation Level of [place] - ADLs: Independent Level of [place] - Homemaking: Independent Driving: Patient drives Subjective Impression - Prior Function: Pt reports he is ind at baseline without AD. Reports his son can stay with him at discharge to assist as needed. Pt lost his in July of last year. Past Medical History: Diagnosis Date Arrhythmia A Fib Bradycardia Hypertension Leukopenia Mild anemia Psoriasis Renal failure History reviewed. No pertinent surgical history. For complete objective data, detailed plan of care and patient education refer to: OT Evaluation flowsheet, OT Evaluation and Treatment flowsheet, OT Treatment flowsheet, patient Plan of Care, Plan of Care progress note, and Patient Education. This note stands as the current Discharge Summary upon patient discharge from the hospital or completion of Occupational Therapy Plan of Care. NEPHROLOGY CONSULTATION NOTE [facility] Patient Name: Salvador Glass MR #: [id number] : 1940 Requesting physician: Dr Heather DONALD Reason for consult: Hyponatremia Impression/Plan: Hyponatremia: hypovolemic hyponatremia related to diuretic use (hydrochlorothiazide, Lasix, and Aldactone). Continue to hold diuretics. We will obtain Urine sodium, serum and urine osmo. Monitor Sodium every 4hours with goal sodium 126 in he next 24hrs. We will continue with IV hydration for now, if minimal improvement in his sodium levels he may require tolvaptan. No need for 3% saline at this time. Neurologic status is stable. Syncope: patient does have Hx of AFib is on Toprol in the OP setting noted to have bradycardia may have some tachy-yimi. EP has been consulted. Fall with closed head injury: management per primary team, trauma team following. Pancytompenia: management per primary team Hem/Onc has been consulted. History of Presenting Illness: Salvador Glass is a 81 y.o. male on hospital day 0 with a history of AFib, HTN, bradycardia, Leukopenia, Psoriasis who presented to the ER via EMS after experiencing a fall at home per the patient he went to clean up in the kitchen and woke up on the floor and he was bleeding he denies feeling dizzy or light headed before falling but he had been dizzy off and on for the past 3days. He puts little salt on his food, he drinks on average 2cups of coffee a day, 2 glassess of water a day and 1-2 glasses of caffeine free soda each day. He describes his cups as 8-10oz in size. History: Past Medical History: Diagnosis Date Arrhythmia A Fib Bradycardia Hypertension Leukopenia Mild anemia Psoriasis Renal failure History reviewed. No pertinent surgical history. Family History: Family History Problem Relation Age of Onset Emphysema Mother Diabetes Father Asthma Father [] Unable to obtain due to ventilated and/or neurologic status Social History Socioeconomic History Marital status: Tobacco Use Smoking status: Former Smokeless tobacco: Never Tobacco comments: quit in his 40s Vaping Use Vaping Use: Never used Substance and Sexual Activity Alcohol use: Yes Comment: occasional Drug use: Never [] Unable to obtain due to ventilated and/or neurologic status Living Arrangements: Alone Support Systems: Children, Family members Home Medications: Outpatient Medications as of 04/07/2022 Medication Sig amLODIPine (NORVASC) 5 MG tablet Take 5 mg by mouth daily . aspirin 81 MG EC tablet Take 1 (one) tablet (81 mg total) by mouth daily . b complex vitamins capsule Take 1 capsule by mouth daily . calcium carbonate 168 mg calcium (420 mg) Chew Chew and Swallow daily as needed . carvediloL (COREG) 6.25 MG tablet Take 1 (one) tablet (6.25 mg total) by mouth 2 (two) times a day . clobetasol (TEMOVATE) 0.05 % scalp solution Apply topically daily Apply thin film onto dry scalp affected areas only. Leave in place for 15 min before lathering and rinsing. . furosemide (LASIX) 40 MG tablet Take 1 (one) tablet (40 mg total) by mouth daily . hydrALAZINE (APRESOLINE) 50 MG tablet Take 50 mg by mouth 3 (three) times a day . hydroCHLOROthiazide (HYDRODIURIL) 25 MG tablet Take 12.5 mg by mouth daily . hydrocortisone 1 % cream Apply topically 2 (two) times a day . ketoconazole (NIZORAL) 2 % cream APPLY CREAM TOPICALLY TO AFFECTED AREA TWICE DAILY pantoprazole (PROTONIX) 40 MG tablet Take 1 (one) tablet (40 mg total) by mouth daily . spironolactone (ALDACTONE) 25 MG tablet Take 1 (one) tablet (25 mg total) by mouth daily . triamcinolone (KENALOG) 0.1 % cream Apply topically 2 (two) times a day Reasons: Psoriasis of Scalp. Current Hospital Medications: Scheduled Meds: amLODIPine 5 mg Oral Daily aspirin 81 mg Oral Daily bacitracin zinc Topical Daily docusate sodium 100 mg Oral Daily hydrALAZINE 50 mg Oral TID pantoprazole 40 mg Oral Daily sodium chloride (PF) 5 mL Intravenous Q8H [facility] Continuous Infusions: sodium chloride 0.9 % sodium chloride 0.9 % 75 mL/hr (04/07/22624) PRN Meds:.acetaminophen, aluminum-magnesium hydroxide-simethicone, bisacodyL, magnesium hydroxide, melatonin, ondansetron OR ondansetron, perflutren lipid microspheres, senna, Saline lock IV AND sodium chloride (PF) AND sodium chloride (PF) AND sodium chloride 0.9 %, traZODone sodium chloride 0.9 % sodium chloride 0.9 % 75 mL/hr (04/07/22624) Allergies: I have reviewed the patient's allergies. Patient has no known allergies. Review of Systems: [x] CV, Resp, GI, Neuro, and all other systems reviewed and negative other than listed in HPI. [] Unable to obtain due to intubation and/or neurologic status. Objective Findings: Vitals:BP (!) 156/68 Pulse (!) 39 Temp 97.7 F (36.5 C) (Oral) Resp 16 Ht 6' Wt 82.9 kg (182 lb 12.2 oz) SpO2 98% BMI 24.79 kg/m Intake/Output last 3 shifts: Intake/Output Summary (Last 24 hours) at 04/07/2022 1539 Last data filed at 04/07/2022 0910 Gross per 24 hour Intake 499.98 ml Output 600 ml Net -100.02 ml I/O last 3 completed shifts: In: 500 [IV Piggyback:500] Out: 250 [Urine:250] Physical Examination: General: Age appropriate, NAD. HEENT: Normocephalic, Left eye with ecchymosis, and edema noted. [place] wrap around head with dried blood noted in his hair. Neck: No JVD. Heart: Regular, no murmur, no rub/gallop. Lungs: Clear to ascultation, no rales/wheezing/rhonchi. Good chest wall excursion. Abdomen: Soft, nontender, no supra-public fullness or tenderness. Extremities: No clubbing/cyanosis, no edema. Skin: Warm, dry, normal turgor, no rash, no bruise, no petichiae. B/l lower arms with kerlex dressing dry and intact, Neuro: No myoclonus or tremor. Psych: Normal affect. : [] Win present [x] Win not present Results/Medications Reviewed: 04/07/22 3:39 PM: Laboratory, Microbiology, Pathology, Radiology, Cardiology, Medications and Transcriptions Laboratory: Results from last 7 days Lab Units 04/07/22 0507 04/06/22 2142 WBC K/mcL 3.39* 3.97* HGB g/dL 9.4* 9.9* HCT % 26.9* 28.9* PLT K/mcL 130* 123* Results from last 7 days Lab Units 04/07/22 1208 04/07/22 0506 04/06/22 2142 SODIUM mmol/L 119* 121* 121* 119* POTASSIUM mmol/L -- 4.4 4.0 CHLORIDE mmol/L -- 90* 87* BICARB mmol/L -- 16* 20* BUN mg/dL -- 8 11 CREATININE mg/dL -- 0.61* 0.87 EGFR mL/min/1.73 m2 -- 98 88 GLUCOSE mg/dL -- 92 105* CALCIUM mg/dL -- 8.3* 8.7 MAGNESIUM mg/dL -- 1.7 1.8 PHOSPHORUS mg/dL -- 2.9 -- Urinalysis Results from last 7 days Lab Units 04/07/22 0039 COLOR, UR Yellow CLARITY, UR Clear SPEC GRAV 1.013 PH, UR 5.5 GLUCOSE, UR mg/dL Negative KETONES, UR mg/dL Trace* BILIRUBIN, UR Negative UROBILINOGEN, UR mg/dL <2.0 BLOOD, UR Negative NITRITE, UR Negative LEUK BOLIVAR, UR Negative MUCUS, UR /lpf Rare WBC, UR /hpf <1 BACTERIA, UR /hpf None Seen HYALINE CASTS /lpf 0-2 CREATININE UR mg/dL 53.1 Comments: Thank you for allowing us to participate in the care of this patient. We will continue to follow. Please call if questions or concerns arise. [facility] SURGICAL HISTORY & PHYSICAL/CONSULTATION NOTE ========Abrasions of multiple sites Assessment & Plan CT H/N/maxface (-) Abrasions noted left cheek, left forehead, right elbow, bilateral hands Recommending bacitracin Adaptic changed daily to abrasions Apply gauze wrap around forehead abrasion to apply pressure to control bleeding. Fall Assessment & Plan Fall at home yesterday evening. CT head neck face max - negative No further imaging at this time The following Vizient risk variables were noted and present on admission: Cardiac Arrhythmia and Hyponatremia Please see assessment and plan for further details. CHIEF COMPLAINT: Fall and abrasions HISTORY OF PRESENT ILLNESS / INJURY (HPI): Salvador Glass is a 81 y.o. male patient of Walter Munguia MD with history of atrial fibrillation, HTN, leukopenia. Takes ASA daily. He presented to [facility] ED today after sustaining a fall yesterday evening. Amnesic to events surround the fall. CT imaging in ED completed with no acute findings. He has external abrasions as noted above. Trauma consulted due to abrasion on forehead with bleeding. Dressings removed neurologic recommending Vaseline Adaptic to all abrasions. Dr. Guillen at bedside. The rest of exam was with benign findings. PAST MEDICAL HISTORY (PMH): Past Medical History: Diagnosis Date Arrhythmia A Fib Bradycardia Hypertension Leukopenia Mild anemia Psoriasis Renal failure History reviewed. No pertinent surgical history. Social History Tobacco Use Smoking status: Former Smokeless tobacco: Never Tobacco comments: quit in his 40s Vaping Use Vaping Use: Never used Substance Use Topics Alcohol use: Yes Comment: occasional Drug use: Never Family History Problem Relation Age of Onset Emphysema Mother Diabetes Father Asthma Father MEDICATIONS: No current facility-administered medications on file prior to encounter. Current Outpatient Medications on File Prior to Encounter Medication Sig Dispense Refill amLODIPine (NORVASC) 5 MG tablet Take 5 mg by mouth daily . aspirin 81 MG EC tablet Take 1 (one) tablet (81 mg total) by mouth daily . b complex vitamins capsule Take 1 capsule by mouth daily . calcium carbonate 168 mg calcium (420 mg) Chew Chew and Swallow daily as needed . carvediloL (COREG) 6.25 MG tablet Take 1 (one) tablet (6.25 mg total) by mouth 2 (two) times a day . clobetasol (TEMOVATE) 0.05 % scalp solution Apply topically daily Apply thin film onto dry scalp affected areas only. Leave in place for 15 min before lathering and rinsing. . furosemide (LASIX) 40 MG tablet Take 1 (one) tablet (40 mg total) by mouth daily . hydrALAZINE (APRESOLINE) 50 MG tablet Take 50 mg by mouth 3 (three) times a day . hydroCHLOROthiazide (HYDRODIURIL) 25 MG tablet Take 12.5 mg by mouth daily . hydrocortisone 1 % cream Apply topically 2 (two) times a day . ketoconazole (NIZORAL) 2 % cream APPLY CREAM TOPICALLY TO AFFECTED AREA TWICE DAILY pantoprazole (PROTONIX) 40 MG tablet Take 1 (one) tablet (40 mg total) by mouth daily . spironolactone (ALDACTONE) 25 MG tablet Take 1 (one) tablet (25 mg total) by mouth daily . triamcinolone (KENALOG) 0.1 % cream Apply topically 2 (two) times a day Reasons: Psoriasis of Scalp. ALLERGIES: No Known Allergies REVIEW OF SYSTEMS: Eyes: Negative for eye pain or vision changes Ears, Nose, Mouth, Throat: Negative for rhinorrhea, nasal pain, dysphagia, hoarseness Cardiovascular: Negative for chest pain, orthopnea, edema. RLE + edema. Respiratory: Negative for cough, shortness of breath Gastrointestinal: Negative for abdominal pain, nausea, vomiting, diarrhea Genitourinary: Negative for dysuria, hematuria Musculoskeletal: Negative for pain, joint edema Skin/Breast: Negative for rash, itching, lesions. Abrasions to left cheek, left forehead, right elbow, bilateral hands. Neurological: Negative for paresthesia, paralysis, loss of bowel or bladder control, loss of consciousness Hematologic/Lymphatic: Negative for anticoagulant use, antiplatelet use. Allergic/Immunologic: Allergies reviewed, no use of immunosuppressants or active chemotherapy Other than the above items, the remainder of a complete review of systems is otherwise negative. PHYSICAL EXAM: BP (!) 142/61 Pulse (!) 58 Temp 97.5 F (36.4 C) (Oral) Resp 15 Ht 6' Wt 82.9 kg (182 lb 12.2 oz) SpO2 98% BMI 24.79 kg/m Body mass index is 24.79 kg/m . GENERAL: Appears age appropriate. NEUROLOGICAL: Alert and oriented X 3. Follows commands with extremities x4, equal strength. Pupils equal, round, reactive to light. EOMI. No focal neurologic deficits noted. GCS = 15 Head Eyes Ear Nose Throat: Head: with abrasion to left cheek and left forehead. Eyes: left eye hematoma. Conjunctivae/sclerae/corneas clear. Ears: External ear normal. Hearing: [place] - hearing aids. No drainage. Nose: nares normal, septum midline, no drainage or nasal tenderness. Throat: phonation normal Neck: Supple, trachea midline, no midline tenderness, step offs, bony crepitus. CARDIOVASCULAR: yimi/regular rate and rhythm. No clicks, rubs, murmurs or gallops noted. + RLE edema noted. 2+ pulses radial/DP/PT bilaterally. RESPIRATORY: Lungs, clear to auscultation bilaterally. No rhonchi, wheezes or crackles. Respiratory effort unlabored without use of accessory muscles. ABDOMINAL: Rounded, soft, nontender, nondistended. No guarding or peritoneal signs. GENITOURINARY: Normal genitalia for age without lesion or trauma. Rectal exam - defer MUSCULOSKELETAL: Extremities atraumatic without gross deformity x4. ROM appropriate for age. No clubbing, cyanosis or joint edema. SPINE: No midline tenderness, stepoffs, or bony tenderness to thoracic and lumbar spine SKIN: Skin warm and dry. No rashes or lesions. Abrasions noted above. IMAGING STUDIES: I have reviewed the following: CT H/N/maxface LABORATORY STUDIES: Lab Results Component Value Date WBC 3.39 (L) 04/07/2022 HGB 9.4 (L) 04/07/2022 HCT 26.9 (L) 04/07/2022 MCV 90.6 04/07/2022 PLT 130 (L) 04/07/2022 RBC 2.97 (L) 04/07/2022 Lab Results Component Value Date GLUCOSE 92 04/07/2022 CALCIUM 8.3 (L) 04/07/2022 NA 121 (L) 04/07/2022 NA 121 (L) 04/07/2022 K 4.4 04/07/2022 CL 90 (L) 04/07/2022 BUN 8 04/07/2022 CREATININE 0.61 (L) 04/07/2022 Lab Results Component Value Date ALT 26 04/06/2022 AST 25 04/06/2022 ALKPHOS 91 04/06/2022 BILITOT 1.9 (H) 04/06/2022 Associated attestation - Mindy, Raymundo Haas MD - 04/07/2022 12:48 PM EDT TRAUMA/ ACUTE CARE SURGERY ATTENDING NOTE Please link this note as an addendum to the resident or AIRAM note with the same day of service. The patient was seen and examined by me, the attending trauma surgeon, on multidisciplinary rounds on the date of service listed above. I have reviewed the resident or AIRAM note with the relevant labs, studies, and valuation consultant notes. I have reviewed and agree with the documented history, exam, and plan of care, with the following additions and corrections: Today: Salvador Glass is a 81 y.o. male presenting following fall from standing. Patient has a history of atrial fibrillation, he is rate controlled and on aspirin, he is not otherwise anticoagulated. Patient is amnestic to the events surrounding his fall. It is suspected that this may be related to his cardiac arrhythmia or hypoNa. Patient has been admitted to medicine for work-up. CT of head, C-spine, face are without acute findings. Surgery was consulted for evaluation of patient's wounds. On physical examination, GCS is 14, he is neurovascularly intact. Patient with bradycardia likely related to rate control, he is normotensive. Patient has no acute complaints. Patient has a skin tear of his right elbow, right hand, left hand, left cheek, and an abrasion to his left forehead. None of these are lacerations requiring closure at this time. Recommend local wound care with Adaptic daily to all of these regions. Patient has no other complaints, he does have ecchymosis all over his body, but no areas of tenderness to palpation. At this time would not recommend further imaging or work-up. Further management per primary team. Thank you for this consult, please call with questions. Pertinent labs and imaging personally reviewed with evidence of hypoNa, hypoCl, pancytopenia. The following Vizient risk variables were noted and present on admission: Encephalopathy, Coagulation Defect, and Hyponatremia Please see assessment and plan for further details. Tyler Guillen MD, FACS, DABS Trauma, Critical Care, Acute Care Surgery Associated Order(s): IP CONSULT TO CARDIOLOGY Patient Name: Salvador Glass Admit Date: [id number] MR #: [id number] : 1940 Assessment: Salvador Glass is a 81 year old male with: + syncope and facial trauma at home 04/06/22 + hx of atrial fibrillation, + not on OAC at home, pt refuses and declined Cardioversion in the past (as far back as 03/2019). Takes aspirin 81 mg daily + Currently has pancytopenia with heme/onc consutled + EF 59% on echo 03/2019 + LA and RA mildly dilated on echo 03/2019 + mild to moderate MR and TR with normal RVSP on echo 03/2019 + no known CAD NM myocardial perfusion 03/28/19: no ischemia , EF 74% + hyponatremia on admission ( Na 121) Nephrology consulted Plan 04/07/2022: reviewed with Dr Haji - will monitor heart rhythm for now - continue to hold HR limiting meds (coreg 6.25. mg BID at home being held) -When metabolic issues resolve, will place a pacemaker (likely Micra) prior to discharge -Echo results pending -Sodium remains low at 121 today -Watch Hgb/ 9.4/26.9 & platelets 130 today - will likely consider Watchman as an outpt -Goal K 4.0-4.7, Potassium today is 4.4 -Goal Mg 2.0-2.2 , Mg today is 1.7- HOSPITALISTS, please replace Reviewed old records Discussed in detail with patient Dr Kodak Haji will Independently review workup Subjective Reason for Consultation: Fall with concern for complete heart block Chief Complaint: Syncopal episode from standing position The following Vizient risk variables were noted and present on admission: Cardiac Arrhythmia, Thrombocytopenia, and Hyponatremia Please see assessment and plan for further details. History of Present Illness: Salvador Glass is a 81 y.o. male with a history of atrial fibrillation not on OAC at home bradycardia, hypertension, leukopenia, mild anemia, thrombocyotpenia, psoriasis, and renal failure that presented by squad on 04/06/22 evening after a fall at home with loss of consciousness. He recalls eating dinner then going to place food in his refrigerator and then awakened on the floor with blood around him. He does not recall feeling lightheaded or dizzy or feeling palpitations prior to the fall. He called 911 himself when he was able. He reports this happened a year ago and he went to [facility] and was told he had a heart attack, but does not recall having a heart cath. He thinks he had a stress test in the hospital. He denies palpitations with his atrial fib. He has had lower extremity edema (Right >left) for quite some time. He has even had wraps on his legs from his PCP . He has given up on virgilio hose. He is also adamant he does not want on OAC at this point since he bleeds so easily when he cuts himself. On admission his EKG showed atrial fib with SVR heart rate 45 bpm. Abnormal Labs on admission 04/06/2022: Sodium 119, chloride 87, bicarb 20, total bili 1.9, BNP 2,644, WBCs 3.97, hemoglobin 9.9, 28.9, platelets 123 ECG's: reviewed EKG 03/28/2019: atrial fib 66 bpm QRS 118, QTc 434 EKG 04/06/2022 A. fib with SVR and right bundle branch block 45 bpm QRS 134, QTc 451 EKG 04/07/2022 A. fib with SVR and incomplete right bundle branch block 48 bpm QRS 118, QTc 412 Telemetry: Reviewed atrial fib 60's Cardiac Studies: Reviewed and noted. Echo pending Radiographics: Pertinent studies reviewed and noted. Current Facility-Administered Medications Medication Dose Route Frequency Provider Last Rate Last Admin acetaminophen (TYLENOL) tablet 650 mg 650 mg Oral Q6H PRN Connor Romero MD aluminum-magnesium hydroxide-simethicone (MAALOX PLUS) 200-200-20 mg/5 mL suspension 30 mL 30 mL Oral Q4H PRN Connor Romero MD amLODIPine (NORVASC) tablet 5 mg 5 mg Oral Daily Connor Romero MD 5 mg at 04/07/22 0916 aspirin EC tablet 81 mg 81 mg Oral Daily Connor Romero MD bisacodyL (DULCOLAX) suppository 10 mg 10 mg Rectal Daily PRN Connor Romero MD docusate sodium (COLACE) capsule 100 mg 100 mg Oral Daily Connor Romero MD 100 mg at 04/07/22 0916 hydrALAZINE (APRESOLINE) tablet 50 mg 50 mg Oral TID Connor Romero MD 50 mg at 04/07/22 0916 magnesium hydroxide (MOM) 400 mg/5 mL suspension 2,400 mg 30 mL Oral Daily PRN Connor Romero MD melatonin tablet 3 mg 3 mg Oral Nightly PRN Connor Romero MD ondansetron (ZOFRAN-ODT) disintegrating tablet 4 mg 4 mg Oral Q6H PRN Connor Romero MD Or ondansetron (ZOFRAN) injection 4 mg 4 mg Intravenous Q6H PRN Connor Romero MD pantoprazole (PROTONIX) EC tablet 40 mg 40 mg Oral Daily Connor Romero MD 40 mg at 04/07/22 0916 perflutren lipid microspheres (DEFINITY) 0.143 mg/mL solution 0-10 mL of mixture 0-10 mL of mixture Intravenous Once in imaging Shwetha Carr MD 2 mL of mixture at 04/07/22 1027 senna (SENOKOT) tablet 8.6 mg 1 tablet Oral BID PRN Connor Romero MD sodium chloride (PF) (NS) flush 5 mL 5 mL Intravenous PRN Connor Romero MD And sodium chloride (PF) (NS) flush 5 mL 5 mL Intravenous Q8H EVELYN Connor Romero MD 5 mL at 04/07/22 0626 And sodium chloride 0.9% (NS) 0-150 mL/hr Intravenous PRN Connor Romero MD sodium chloride 0.9% (NS) 75 mL/hr Intravenous Continuous Connor Romero MD 75 mL/hr at 04/07/22 0625 75 mL/hr at 04/07/22 0625 traZODone (DESYREL) tablet 50 mg 50 mg Oral Nightly PRN Connor Romero MD Current Facility-Administered Medications Medication Dose Route Frequency Provider Last Rate Last Admin acetaminophen (TYLENOL) tablet 650 mg 650 mg Oral Q6H PRN Connor Romero MD aluminum-magnesium hydroxide-simethicone (MAALOX PLUS) 200-200-20 mg/5 mL suspension 30 mL 30 mL Oral Q4H PRN Connor Romero MD amLODIPine (NORVASC) tablet 5 mg 5 mg Oral Daily Connor Romero MD 5 mg at 04/07/22 0916 aspirin EC tablet 81 mg 81 mg Oral Daily Connor Romero MD bisacodyL (DULCOLAX) suppository 10 mg 10 mg Rectal Daily PRN Connor Romero MD docusate sodium (COLACE) capsule 100 mg 100 mg Oral Daily Connor Romero MD 100 mg at 04/07/22 0916 hydrALAZINE (APRESOLINE) tablet 50 mg 50 mg Oral TID Connor Romero MD 50 mg at 04/07/22 0916 magnesium hydroxide (MOM) 400 mg/5 mL suspension 2,400 mg 30 mL Oral Daily PRN Connor Romero MD melatonin tablet 3 mg 3 mg Oral Nightly PRN Connor Romero MD ondansetron (ZOFRAN-ODT) disintegrating tablet 4 mg 4 mg Oral Q6H PRN Connor Romero MD Or ondansetron (ZOFRAN) injection 4 mg 4 mg Intravenous Q6H PRN Connor Romero MD pantoprazole (PROTONIX) EC tablet 40 mg 40 mg Oral Daily Connor Romero MD 40 mg at 04/07/22 0916 perflutren lipid microspheres (DEFINITY) 0.143 mg/mL solution 0-10 mL of mixture 0-10 mL of mixture Intravenous Once in imaging Shwetha Carr MD 2 mL of mixture at 04/07/22 1027 senna (SENOKOT) tablet 8.6 mg 1 tablet Oral BID PRN Connor Romero MD sodium chloride (PF) (NS) flush 5 mL 5 mL Intravenous PRN Connor Romero MD And sodium chloride (PF) (NS) flush 5 mL 5 mL Intravenous Q8H EVELYN Connor Romero MD 5 mL at 04/07/22625 And sodium chloride 0.9% (NS) 0-150 mL/hr Intravenous PRN Connor Romero MD sodium chloride 0.9% (NS) 75 mL/hr Intravenous Continuous Connor Romero MD 75 mL/hr at 04/07/22 0625 75 mL/hr at 04/07/22624 traZODone (DESYREL) tablet 50 mg 50 mg Oral Nightly PRN Connor Romero MD Past History: Past Medical History: Diagnosis Date Arrhythmia A Fib Bradycardia Hypertension Leukopenia Mild anemia Psoriasis Renal failure History reviewed. No pertinent surgical history. Family History Problem Relation Age of Onset Emphysema Mother Diabetes Father Asthma Father Social History Socioeconomic History Marital status: Tobacco Use Smoking status: Former Smokeless tobacco: Never Tobacco comments: quit in his 40s Vaping Use Vaping Use: Never used Substance and Sexual Activity Alcohol use: Yes Comment: occasional Drug use: Never Allergy Information: I have reviewed the patient's allergies. Patient has no known allergies. Home Medications: Outpatient Medications as of 04/07/2022 Medication Sig amLODIPine (NORVASC) 5 MG tablet Take 5 mg by mouth daily . aspirin 81 MG EC tablet Take 1 (one) tablet (81 mg total) by mouth daily . b complex vitamins capsule Take 1 capsule by mouth daily . calcium carbonate 168 mg calcium (420 mg) Chew Chew and Swallow daily as needed . carvediloL (COREG) 6.25 MG tablet Take 1 (one) tablet (6.25 mg total) by mouth 2 (two) times a day . clobetasol (TEMOVATE) 0.05 % scalp solution Apply topically daily Apply thin film onto dry scalp affected areas only. Leave in place for 15 min before lathering and rinsing. . furosemide (LASIX) 40 MG tablet Take 1 (one) tablet (40 mg total) by mouth daily . hydrALAZINE (APRESOLINE) 50 MG tablet Take 50 mg by mouth 3 (three) times a day . hydroCHLOROthiazide (HYDRODIURIL) 25 MG tablet Take 12.5 mg by mouth daily . hydrocortisone 1 % cream Apply topically 2 (two) times a day . ketoconazole (NIZORAL) 2 % cream APPLY CREAM TOPICALLY TO AFFECTED AREA TWICE DAILY pantoprazole (PROTONIX) 40 MG tablet Take 1 (one) tablet (40 mg total) by mouth daily . spironolactone (ALDACTONE) 25 MG tablet Take 1 (one) tablet (25 mg total) by mouth daily . triamcinolone (KENALOG) 0.1 % cream Apply topically 2 (two) times a day Reasons: Psoriasis of Scalp. Review of Systems: All system(s) were reviewed. Pertinent positive and negative findings are noted in the HPI. All system negative unless otherwise noted in the HPI Physical Examination: BP (!) 142/61 Pulse (!) 58 Temp 97.5 F (36.4 C) (Oral) Resp 15 Ht 6' Wt 82.9 kg (182 lb 12.2 oz) SpO2 98% BMI 24.79 kg/m Constitutional Alert and oriented X3 in no acute distress. Daughter and son in law present Head: normocephalic. Neck: No masses noted HEENT Anicteric-left facial trauma and edema. Heart:. Normal Intensity S1 and S2. No murmurs. Lungs: Clear to auscultation. Good air movement. No crackles noted. Abdomen is soft and nontender. Extremities: Extremities are warm. + 1 bilateral lower extremity edema (R>L). Adequate peripheral pulses. Skin: warm, dry , and thin skin with multiple ecchymotic areas on upper extremities and upper chest. left facial trauma. Dressings on left face, head, and bilateral arms Neuro: nonfocal Psych not suicidal or homicidal , pleasant and cooperative Intake/Output last 3 shifts: I/O last 3 completed shifts: In: 500 [IV Piggyback:500] Out: 250 [Urine:250] Laboratory and Additional Data Reviewed: Results from last 7 days Lab Units 04/06/22 2142 CK TOTAL U/L 60 TROPONIN I ng/L 7 Results from last 7 days Lab Units 04/07/22 0506 SODIUM mmol/L 121* 121* POTASSIUM mmol/L 4.4 CHLORIDE mmol/L 90* BUN mg/dL 8 CREATININE mg/dL 0.61* GLUCOSE mg/dL 92 CALCIUM mg/dL 8.3* Results from last 7 days Lab Units 04/07/22 0507 WBC K/mcL 3.39* HGB g/dL 9.4* HCT % 26.9* PLT K/mcL 130* Results from last 7 days Lab Units 04/06/22 2142 TSH mcIU/mL 2.49 Results from last 7 days Lab Units 04/06/22 2142 NT PRO BNP pg/mL 2,644* [facility] for Dr Kodak Haji [phone] Associated attestation - Kodak Haji MD - 04/07/2022 2:48 PM EDT I have reviewed the documentation for our electrophysiology care provided by the COMPUTER AIDED DESIGN OPERATOR/Resident and evaluated this patient on the same day and agree with the findings as described and have made edits as appropriate. Salvador Glass is a 81 y.o. male with a history of AF, not previously on AC. Presenting with traumatic syncope. Syncope: Likely AF with slow rates and associated pauses. Normal LV on echo. Remotely normal PET stress. Would recommend continue monitoring. Pending recovery of electrolytes can consider VR MICRA during his hospitalization. It has been a pleasure to participate in the care Salvador Glass. Please do not hesitate to contact us for questions should they arise. Kodak Haji MD Electrophysiology [facility] [phone] (mobile) Cardiology Diagnostic Imaging ECG - AF with slow ventricular rates intermittent pauses. Scheduled medications amLODIPine 5 mg Oral Daily aspirin 81 mg Oral Daily bacitracin zinc Topical Daily docusate sodium 100 mg Oral Daily hydrALAZINE 50 mg Oral TID pantoprazole 40 mg Oral Daily sodium chloride (PF) 5 mL Intravenous Q8H EVELYN Continuous Infusions sodium chloride 0.9 % sodium chloride 0.9 % 75 mL/hr (04/07/22 0625) Physical Exam Blood pressure (!) 156/68, pulse (!) 39, temperature 97.7 F (36.5 C), temperature source Oral, resp. rate 16, height 6', weight 82.9 kg (182 lb 12.2 oz), SpO2 98 %. General appearance - alert, well appearing, and in no distress Neck - supple Carotid upstrokes are normal bilaterally without bruits with no JVD Lungs - clear to auscultation, no wheezes, rales or rhonchi Heart - IRRR< variable, S1 and S2 normal, no murmurs noted, Peripheral vascular - peripheral pulses normal Abdomen - soft, nontender with normal active bowel sounds Extremities -no pedal edema Skin - normal coloration and turgor Psych - appropriate mood Pertinent Labs Recent Labs 04/06/22 2142 04/07/22 0506 04/07/22 0507 WBC 3.97* -- 3.39* HGB 9.9* -- 9.4* HCT 28.9* -- 26.9* BUN 11 8 -- GLUCOSE 105* 92 -- CALCIUM 8.7 8.3* -- TSH 2.49 -- -- Lab Results Component Value Date INR 1.2 (H) 04/07/2022 PROTIME 15.2 (H) 04/07/2022 Associated Order(s): IP CONSULT TO CARE MANAGEMENT Care Management Consult Note Date: 04/07/2022 Time: 9:26 AM Patient Name: Salvador Glass Date of : 1940 Reason for Consult: Discharge Needs Discharge Plan: Discharging Transportation Plan: Discharge Plan Status: In to see patient. Patient was educated on the social service role. Patient is from home and resides alone. Patient had a fall prior to admission. Patient reports he is normally fully independent and still drives. Patient was not using medical equipment prior to admission but has it in place if needed. Patient reports his home is one-story. Patient reports no issues obtaining or affording his medications. Patient anticipates being able to return home at discharge. Therapy has been ordered. Assessment and Background Information: Living Arrangements: Alone Caregiver Identified: No Support Systems: Children, Family members Assistance Needed: Independent prior Type of Residence: Private residence Prior to Admission Home Care Services: No Patient expects to be discharged to:: Home Does the patient need discharge transport arranged?: No Current Home Equipment: Cane, Walker, Other (Comment) (grab bars) Associated Order(s): IP CONSULT TO NEPHROLOGY NEPHROLOGY CONSULTATION NOTE [facility] Patient Name: Salvador Glass MR #: [id number] : 1940 Requesting physician: Dr Heather DONALD Reason for consult: Hyponatremia Impression/Plan: Hyponatremia: hypovolemic hyponatremia related to diuretic use (hydrochlorothiazide, Lasix, and Aldactone). Continue to hold diuretics. We will obtain Urine sodium, serum and urine osmo. Monitor Sodium every 4hours with goal sodium 126 in he next 24hrs. We will continue with IV hydration for now, if minimal improvement in his sodium levels he may require tolvaptan. No need for 3% saline at this time. Neurologic status is stable. Syncope: patient does have Hx of AFib is on Toprol in the OP setting noted to have bradycardia may have some tachy-yimi. EP has been consulted. Fall with closed head injury: management per primary team, trauma team following. Pancytompenia: management per primary team Hem/Onc has been consulted. History of Presenting Illness: Salvador Glass is a 81 y.o. male on hospital day 0 with a history of AFib, HTN, bradycardia, Leukopenia, Psoriasis who presented to the ER via EMS after experiencing a fall at home per the patient he went to clean up in the kitchen and woke up on the floor and he was bleeding he denies feeling dizzy or light headed before falling but he had been dizzy off and on for the past 3days. He puts little salt on his food, he drinks on average 2cups of coffee a day, 2 glassess of water a day and 1-2 glasses of caffeine free soda each day. He describes his cups as 8-10oz in size. History: Past Medical History: Diagnosis Date Arrhythmia A Fib Bradycardia Hypertension Leukopenia Mild anemia Psoriasis Renal failure History reviewed. No pertinent surgical history. Family History: Family History Problem Relation Age of Onset Emphysema Mother Diabetes Father Asthma Father [] Unable to obtain due to ventilated and/or neurologic status Social History Socioeconomic History Marital status: Tobacco Use Smoking status: Former Smokeless tobacco: Never Tobacco comments: quit in his 40s Vaping Use Vaping Use: Never used Substance and Sexual Activity Alcohol use: Yes Comment: occasional Drug use: Never [] Unable to obtain due to ventilated and/or neurologic status Home Medications: Outpatient Medications as of 04/07/2022 Medication Sig amLODIPine (NORVASC) 5 MG tablet Take 5 mg by mouth daily . aspirin 81 MG EC tablet Take 1 (one) tablet (81 mg total) by mouth daily . b complex vitamins capsule Take 1 capsule by mouth daily . calcium carbonate 168 mg calcium (420 mg) Chew Chew and Swallow daily as needed . carvediloL (COREG) 6.25 MG tablet Take 1 (one) tablet (6.25 mg total) by mouth 2 (two) times a day . clobetasol (TEMOVATE) 0.05 % scalp solution Apply topically daily Apply thin film onto dry scalp affected areas only. Leave in place for 15 min before lathering and rinsing. . furosemide (LASIX) 40 MG tablet Take 1 (one) tablet (40 mg total) by mouth daily . hydrALAZINE (APRESOLINE) 50 MG tablet Take 50 mg by mouth 3 (three) times a day . hydroCHLOROthiazide (HYDRODIURIL) 25 MG tablet Take 12.5 mg by mouth daily . hydrocortisone 1 % cream Apply topically 2 (two) times a day . ketoconazole (NIZORAL) 2 % cream APPLY CREAM TOPICALLY TO AFFECTED AREA TWICE DAILY pantoprazole (PROTONIX) 40 MG tablet Take 1 (one) tablet (40 mg total) by mouth daily . spironolactone (ALDACTONE) 25 MG tablet Take 1 (one) tablet (25 mg total) by mouth daily . triamcinolone (KENALOG) 0.1 % cream Apply topically 2 (two) times a day Reasons: Psoriasis of Scalp. Current Hospital Medications: Scheduled Meds: amLODIPine 5 mg Oral Daily aspirin 81 mg Oral Daily docusate sodium 100 mg Oral Daily hydrALAZINE 50 mg Oral TID pantoprazole 40 mg Oral Daily sodium chloride (PF) 5 mL Intravenous Q8H EVELYN Continuous Infusions: sodium chloride 0.9 % sodium chloride 0.9 % 75 mL/hr (04/07/22 0625) PRN Meds:.acetaminophen, aluminum-magnesium hydroxide-simethicone, bisacodyL, magnesium hydroxide, melatonin, ondansetron OR ondansetron, senna, Saline lock IV AND sodium chloride (PF) AND sodium chloride (PF) AND sodium chloride 0.9 %, traZODone sodium chloride 0.9 % sodium chloride 0.9 % 75 mL/hr (04/07/22 0625) Allergies: I have reviewed the patient's allergies. Patient has no known allergies. Review of Systems: [x] CV, Resp, GI, Neuro, and all other systems reviewed and negative other than listed in HPI. [] Unable to obtain due to intubation and/or neurologic status. Objective Findings: Vitals:BP (!) 149/73 Pulse (!) 55 Temp 97.6 F (36.4 C) (Oral) Resp 16 Ht 6' SpO2 98% Intake/Output last 3 shifts: Intake/Output Summary (Last 24 hours) at 04/07/2022 0714 Last data filed at 04/07/2022 0202 Gross per 24 hour Intake 499.98 ml Output -- Net 499.98 ml I/O last 3 completed shifts: In: 500 [IV Piggyback:500] Out: - Physical Examination: General: Age appropriate, NAD. HEENT: Normocephalic, Left eye with ecchymosis, and edema noted. Coban wrap around head with dried blood noted in his hair. Neck: No JVD. Heart: Regular, no murmur, no rub/gallop. Lungs: Clear to ascultation, no rales/wheezing/rhonchi. Good chest wall excursion. Abdomen: Soft, nontender, no supra-public fullness or tenderness. Extremities: No clubbing/cyanosis, no edema. Skin: Warm, dry, normal turgor, no rash, no bruise, no petichiae. B/l lower arms with kerlex dressing dry and intact, Neuro: No myoclonus or tremor. Psych: Normal affect. : [] Win present [x] Win not present Results/Medications Reviewed: 04/07/22 7:14 AM: Laboratory, Microbiology, Pathology, Radiology, Cardiology, Medications and Transcriptions Laboratory: Results from last 7 days Lab Units 04/07/22 0507 04/06/22 2142 WBC K/mcL 3.39* 3.97* HGB g/dL 9.4* 9.9* HCT % 26.9* 28.9* PLT K/mcL 130* 123* Results from last 7 days Lab Units 04/07/22 0506 04/06/22 2142 SODIUM mmol/L 121* 119* POTASSIUM mmol/L -- 4.0 CHLORIDE mmol/L -- 87* BICARB mmol/L -- 20* BUN mg/dL -- 11 CREATININE mg/dL -- 0.87 EGFR mL/min/1.73 m2 -- 88 GLUCOSE mg/dL -- 105* CALCIUM mg/dL -- 8.7 MAGNESIUM mg/dL 1.7 1.8 Urinalysis Results from last 7 days Lab Units 04/07/22 0039 COLOR, UR Yellow CLARITY, UR Clear SPEC GRAV 1.013 PH, UR 5.5 GLUCOSE, UR mg/dL Negative KETONES, UR mg/dL Trace* BILIRUBIN, UR Negative UROBILINOGEN, UR mg/dL <2.0 BLOOD, UR Negative NITRITE, UR Negative LEUK BOLIVAR, UR Negative MUCUS, UR /lpf Rare WBC, UR /hpf <1 BACTERIA, UR /hpf None Seen HYALINE CASTS /lpf 0-2 CREATININE UR mg/dL 53.1 Comments: Thank you for allowing us to participate in the care of this patient. We will continue to follow. Please call if questions or concerns arise. documented in this encounter [facility] 04-13-2022 Note Formatting of this n ote might be different from the original. Problem: Pain Goal: Manage acute pain Outcome: Partially Met Goal: Manage chronic pain Outcome: Partially Met Goal: Reduced pain sensation Outcome: Partially Met Goal: Achievement of comfort function goal Outcome: Partially Met Problem: Falls, Risk of Goal: Absence of falls Outcome: Partially Met [facility] 04-12-2022 Note Formatting of this n ote might be different from the original. Problem: Pain Goal: Manage acute pain Outcome: Partially Met Goal: Manage chronic pain Outcome: Partially Met Goal: Reduced pain sensation Outcome: Partially Met Goal: Achievement of comfort function goal Outcome: Partially Met Problem: Falls, Risk of Goal: Absence of falls Outcome: Partially Met [facility] 04-12-2022 Note Formatting of this n ote might be different from the original. Problem: Pain Goal: Manage acute pain Outcome: Partially Met Goal: Manage chronic pain Outcome: Partially Met Goal: Reduced pain sensation Outcome: Partially Met Goal: Achievement of comfort function goal Outcome: Partially Met Problem: Falls, Risk of Goal: Absence of falls Outcome: Partially Met Plan of Care Reviewed [facility] 04-12-2022 Note Formatting of this n ote might be different from the original. Problem: Pain Goal: Manage acute pain Outcome: Partially Met Goal: Manage chronic pain Outcome: Partially Met Goal: Reduced pain sensation Outcome: Partially Met Goal: Achievement of comfort function goal Outcome: Partially Met Problem: Falls, Risk of Goal: Absence of falls Outcome: Partially Met [facility] 04-11-2022 Note Formatting of this n ote might be different from the original. Problem: Pain Goal: Manage acute pain Outcome: Partially Met Goal: Manage chronic pain Outcome: Partially Met Goal: Reduced pain sensation Outcome: Partially Met Goal: Achievement of comfort function goal Outcome: Partially Met Problem: Falls, Risk of Goal: Absence of falls Outcome: Partially Met Plan of Care Reviewed [facility] 04-10-2022 Note Formatting of this n ote might be different from the original. OCCUPATIONAL THERAPY VISIT VARIANCE NOTE Attempted to see patient at this time, but unable secondary to: Patient Unavailable (secondary to receiving nursing care). Will follow up as appropriate. [facility] 04-10-2022 Note Formatting of this n ote is different from the original. Electrophysiology Progress Note [facility] EP Sign-Off Discharge Medications: Continue current cardiac medications at current doses, unlimited duration. Follow-up Imaging, Testin day VAL will be given to patient Follow-up Appointments: Follow up with EP in 3 months Additional Instructions Reviewed with Patient and/or Family: Compliance with follow-up. Assessment: Salvador Glass is a 81 year old male with: + syncope and facial trauma at home 04/06/22 + hx of atrial fibrillation for years + not on OAC at home, pt refuses and declined Cardioversion in the past (as far back as 03/2019). Takes aspirin 81 mg daily + Currently has pancytopenia with heme/onc consutled + EF 60% on echo 04/07/22 + LA severely enlarged and RA enlarged on echo 04/07/22 + moderate TVR with significant RVSP 71 mm Hg on echo 04/07/22 + RV moderately enlarged on echo 04/07/22 + no known CAD NM myocardial perfusion 03/28/19: no ischemia , EF 74% + hyponatremia on admission ( Na 121 on 04/07, 124 on 04/08) Nephrology consulted +diagnosed with cirrhosis in [place] May 2021 -new info 04/08/22 re: alcohol use (4-6 rum and cokes daily), Abd Ultrasound 04/08/22 1. Spleen is enlarged. 2. Abnormal hepatic echotexture is an indication of underlying liver disease often fatty infiltration. 3. 10 x 10 x 14 mm relatively hypoechoic posterior aspect lateral segment left hepatic lobe finding is indeterminate. 4. No gallstones or biliary dilatation. 5. No ascites. PRR/pji Echo 04/07/22 1. Left ventricular systolic function is normal with an ejection fraction by Biplane Method of Discs of 60 %. 2. Indeterminate diastolic function. 3. Right ventricle is moderately enlarged with normal systolic function. 4. There is moderate tricuspid valve regurgitation. 5. There is significant pulmonary hypertension, estimated right ventricle systolic pressure is 71 mmHg assuming a right atrial pressure of 15 mmHg. Plan 04/07/2022: reviewed with Dr Haji - will monitor heart rhythm for now - continue to hold HR limiting meds (coreg 6.25. mg BID at home being held) -When metabolic issues resolve, will place a pacemaker (likely Micra) prior to discharge -Echo results pending - See above -Sodium remains low at 121 today -Watch Hgb/ 9.4/26.9 & platelets 130 today - will likely consider Watchman as an outpt -Goal K 4.0-4.7, Potassium today is 4.4 -Goal Mg 2.0-2.2 , Mg today is 1.7- HOSPITALISTS, please replace PLAN 04/08/2022: -sodium slowly improving (nephrology starting) -Remains pancytopenic: H/H stable at 9.5/26.5, platelets 115, -WBC 2.82-possibly due to cirrhosis- Has enlarged spleen on abd US today. -plan for Micra Pacemaker (possibly 04/14) PLAN 04/09/22: -Sodium is 124 this morning. Nephrology is following and managing. Mag 1.8, replacement ordered. -Heme/onc following for pantocytopenia -Longest lasting pause last evening was 3.44 seconds during sleep hours. Pt is in atrial fibrillation. -Discussed possible watchman procedure with patient, patient declines. Discussed the need for anticoagulation due to risk of stroke with afib, patient declines. Goal K 4.0-4.7 -Goal Mg 2.0-2.2 -Will continue to follow Plan 04/10/22: - Sodium 122 this morning. Hgb 8.5, platelets 83. WBC 2.57. -Pauses < 3 seconds during sleep hours noted on telemetry. -Will have 30 day VAL given to patient today to assess for pauses > 5 seconds (pt is in afib). Unsure at this time if syncopal episode was caused from pause, it may have been due to hyponatremia or alcohol use. If patient has pauses lasting longer than 5 seconds during wake hours or if patient is symptomatic with pauses, patient will need micra pacemaker. -Continue holding AV node blocking medications at this time (pt took carvedilol 6.25 mg bid at home) -Please call EP with further questions -Goal K 4.0-4.7 -Goal Mg 2.0-2.2 UPDATE 04/13: Patient remains in hospital, telemetry from over the weekend reviewed. Patient continues to have pauses, however longest lasting pause is 3 seconds. Patient remains in atrial fibrillation. Will continue with plan of 30 day VAL. Subjective: Mr. Glass denies chest pain, dyspnea, palpitations, peripheral swelling, or dizziness Objective: Vital signs in last 24 hours: Temp: [98.5 F (36.9 C)-100.5 F (38.1 C)] 98.5 F (36.9 C) Heart Rate: [57-83] 58 Resp: [16-18] 16 BP: (123-155)/(54-69) 128/60 Telemetry reviewed : Atrial fibrillation, HR 67 bpm Physical Exam: Constitutional: Alert, no acute distress HEENT: Anicteric Cardiac: Heart is irregular rate and irregular rhythm. No gallop or rub. No murmur noted Lungs: clear to ausculation bilaterally. Nonlabored respirations. Abdomen: soft Lower extremities: No edema. Skin: Ecchymosis scattered across chest, arms, and left side of face. Psych: pleasant, cooperative, does not appear depressed or anxious New cardiac test results if any: Imaging: Lab Review Today's available lab reviewed. [facility] 04-10-2022 Note Formatting of this n ote might be different from the original. Problem: Pain Goal: Manage acute pain Outcome: Not Met Goal: Manage chronic pain Outcome: Not Met Goal: Reduced pain sensation Outcome: Not Met Goal: Achievement of comfort function goal Outcome: Not Met Problem: Falls, Risk of Goal: Absence of falls Outcome: Not Met T [facility] 04-09-2022 Consult note Formatting of th is note is different from the original. Physical Therapy PHYSICAL THERAPY EVALUATION and TREATMENT NOTE Dx: Hyponatremia Fall, closed head injury PHYSICAL THERAPY EVALUATION Skilled Therapy Needs After Discharge Are Skilled Therapy Services Needed After Discharge: Yes Intensity of Skilled Therapy: 5 to 7 days per week Anticipated Duration of Skilled Therapy: Duration 10 - 30 days DME Recommendation: Wheeled Walker, Tub seat (has both at home already) DME Rationale: Patient's condition prevents him/her from accomplishing ADL without recommended equipment, Patient's condition creates an increased risk of safety hazard without recommended equipment Rehab Potential: Good The patient's current AMPAC score does not reflect their needs at discharge. Patient can still benefit from the intensity of therapy services recommended: To continue progress toward functional independence Home living situation requires pt to be fully independent with functional mobility and ADLs For continued functional mobility training promoting increased safety in the home environment Outcomes Measures Prior Function - Basic Mobility Raw Score: 24 Points Prior Function - Basic Mobility % Impaired: 0% AM-PAC Basic Mobility Raw Score: 16 Points AM-PAC Basic Mobility % Impaired: 47.12% Physical Therapy Assessment History: The following factors influence the patient's participation in the PT plan of care: Personal Factors: Limited Compliance, Decreased Insight, Impulsive Behavior Environmental Factors: Lives alone, Steps to enter home The following co-morbidities (from this admission or prior) influence the patient's participation in this plan of care: See H & P Number of History elements affecting this patient's PT plan of care: 3 or more Examination of Body Systems: The patient presents with: Musculoskeletal impairments: Strength, Functional Endurance Neurologic Impairments: Balance, Hearing Cardiopulmonary Impairments: Activity Tolerance. These impairments result in limitations of Gait, Functional Transfers, Stair-Climbing, Safety, Safety Awareness, Activity Tolerance, Insight. These impairments result in restrictions of Household mobility, Community mobility, Leisure activities. Number of Body Systems elements affecting this patient's PT plan of care: 3 or more. Clinical Presentation: The patient's clinical presentation for this PT evaluation is evolving with changing characteristics as evidenced by current PT documentation. Activity Tolerance Activity Tolerance: Tolerates 20 - 30 min activity with multiple rests Therapy Precautions Orthotic Devices: No Weight Bearing Status: WF General Rehab Precautions: Fall risk (possible geraldo pacer placement for 04/14/22 ( Kev Wallace CNP for cardiology gave permission 04/09/22 for PT evaluation to proceed ahead of micro pacer placement )) Balance Assessment Sitting Balance - Static: Modified independent, with bilateral UE support, with back unsupported Standing Balance - Static: Minimal assist, Contact guard assist, with bilateral UE support, with device Software Engineer - Standing Static: wheeled walker Loss of Balance- Standing Static: intermittent, posterior Standing Balance - Dynamic: Minimal assist, Contact guard assist Software Engineer - Standing Dynamic: wheeled walker Loss of Balance- Standing Dynamic: intermittent, posterior Bed Mobility Rolling: Contact guard assist, Head of bed flat Supine to Sit: Moderate assist, Head of bed flat (for trunk elevation) Sit to Supine: (NT: pt up in chair post PT eval ; Break away alarm donned/ armed) Software Engineer: (none to simulate home set up) Transfers Sit to Stand: Minimal assist (from EOB with difficulty with controlled transition of one hand at a time to walker) Bed to Chair: Minimal assist, Contact guard assist Stand Pivot Transfers: Minimal assist, Contact guard assist (mild impulsivity resulting in LOB with directional change) Software Engineer: wheeled walker Additional Transfer Trial 2: Yes Sit to Stand Trial 2: Minimal assist, Contact guard assist (from low chair with abimbola armrests) Software Engineer Trial 2: BUE, wheeled walker Gait/Locomotion Gait Assistance: Minimal assist, Contact guard assist Assistive Device: wheeled walker Distance: 35 Feet Rest Breaks: Yes Rest Break Position: seated Rest Break Duration: 3-4 mins Additional Gait Trial 2: Yes Gait Assistance Trial 2: Minimal assist, Contact guard assist Assistive Device Trial 2: wheeled walker Distance Trial 2: 35 Pattern: step to, step through, R decreased step length, L decreased step length, wide base of support, forward flexed, ataxic, decreased maggy (steps per minute) (pt maintains most of weight posteriorly on heels and on lateral sides of feet; minimal toe off bilaterally) Weight Bearing Status: able to maintain Gait Loss(es) of Balance: intermittent, posterior, multidirectional (lateral due to impulsivity especially with directional changes, decreased safety awareness and maintaining weight shifted primarily posteriorly onto heels during gait.) Environment/Terrain: open/community environment, multiple distractions Home Living Obtained Home Living and PLOF info from: Patient Lives With: Alone Type of Home: House Home Layout: One level (laundry on main floor) Steps to enter home: Yes Rails to enter home: 1 rail Number of stairs to enter home: 3 Bathroom Shower/Tub: Tub/shower unit, Main level, Walk-in bathtub Bathroom Toilet: Standard Bathroom Equipment: Grab bars in shower, Shower chair Mobility Equipment: Cane, Wheeled walker ADL Equipment: Long handled shoe horn Prior Level of Function Receives Help From: Family Level of [place] - Transfers/Ambulation/Mobility: Independent with functional transfers, Independent with household ambulation, Independent with community ambulation (without use of assistive device ORTHOPEDICS NURSE) Level of [place] - ADLs: Independent Level of [place] - Homemaking: Independent Driving: Patient drives Subjective Impression - Prior Function: sisters and son live nearby and pt reports they are able to assist at discharge. PHYSICAL THERAPY TREATMENT NOTE Total Treatment Time (Total Session Time): 35 Minutes Total Timed Code Treatment Minutes: 9 Minutes Neuromuscular Reeducation Standing Balance Treatment: weight shifting anterior, postural re-education Skilled Intervention Provided: patient education, verbal cues, neuromuscular re-education For: LE management, balance recovery, fall prevention, self-monitoring during activity, weight shifting Resulting in: improved activity tolerance, improved performance Gait Training Skilled Intervention Provided: patient education, verbal cues, monitoring patient response with activity For: attention to task, weight shifting, self-monitoring during activity, gait technique, improved posture, fall prevention, efficient movement, device management and safe use of device, LE management Resulting in: improved activity tolerance, improved performance Therapeutic Activities Bed Mobility Skilled Intervention Provided: patient education, verbal cues, monitoring patient response with activity, monitoring patient response with positional changes, facilitation, tactile cues, provided step by step instructions For: UE positioning, fall prevention, efficient movement, energy conservation, compensatory strategies, logroll technique, safety during functional tasks, self-monitoring during activity, sequencing of movement, weight shifting Resulting in: improved activity tolerance Transfers Skilled Intervention Provided: patient education, verbal cues, monitoring patient response with activity, monitoring patient response with positional changes For: UE positioning, UE management, fall prevention, efficient movement, energy conservation, controlled descent, safety during functional tasks, safe use of AD and/or equipment, self-monitoring during activity, sequencing of movement, weight shifting (proper body positioning in relation to chair prior to sitting) Resulting in: improved activity tolerance, improved performance, improved balance, improved safety Additional Treatment Details Kev Wallace, GRETA for cardiology, gave permission for PT evaluation to proceed prior to micro pacer placement possibly 04/14/22. Patient educated on need for use of gait belt for safety with functional mobility, fall prevention, energy conservation, need for slow transitional movements and directional changes to decrease fall risk, safe/ proper use of assistive device, proper hand placement for transfer safety , proper, and safe mobility through verbal instruction and demonstration. Pt educated on need for patient to use call light to notify staff to assist with all functional transfers/mobility to maximize safety and decrease risk for falls. Patient educated on purpose, plan and goals for skilled PT services and initiation of discharge planning. Call light within patients reach. Nursing notified that patient is up in chair/ released to nursing with x1 assist with use of 2ww. Break away alarm on post PT evaluation. Pt verbalized understanding of education. Will continue to progress pt per POC. Past Medical History: Diagnosis Date Arrhythmia A Fib Bradycardia Hypertension Leukopenia Mild anemia Psoriasis Renal failure History reviewed. No pertinent surgical history. For complete objective data, detailed plan of care and patient education refer to: PT Evaluation flowsheet, PT Evaluation and Treatment flowsheet, PT Treatment flowsheet, patient Plan of Care, Plan of Care progress note, and Patient Education. This note stands as the current Discharge Summary upon patient discharge from the hospital or completion of Physical Therapy Plan. [facility] 04-09-2022 Note Formatting of this n ote might be different from the original. OCCUPATIONAL THERAPY VISIT VARIANCE NOTE Attempted to see patient at this time, but unable secondary to: Refused. Attempted x2 this date to provide OT intervention. Pt refused stating I did not sleep and I need to rest. Will follow up as appropriate. [facility] 04-09-2022 Note Formatting of this n ote might be different from the original. Problem: Pain Goal: Manage acute pain Outcome: Met Goal: Manage chronic pain Outcome: Met Goal: Reduced pain sensation Outcome: Met Goal: Achievement of comfort function goal Outcome: Met Problem: Falls, Risk of Goal: Absence of falls Outcome: Partially Met [facility] 04-08-2022 Consult note Associated Order (s): IP CONSULT TO CARE MANAGEMENT Addressed. [facility] 04-08-2022 Note Formatting of this n ote might be different from the original. Restricted Alcohol/Drug Screening Date: 04/08/2022 Time: 10:13 AM This Note contains information protected by federal regulations (42 CFR Part 2) that require even greater restrictions than the rules for other medical records. The Part2 regulations even restrict how this information may be shared within [facility]. Accordingly, this information should NOT be viewed except by caregivers when needed for the limited purpose of diagnosing, treating or making a referral in relation to alcohol/drug abuse or by caregivers when needed to treat the patient in a medical emergency. The Part 2 regulations also have special rules regarding disclosure of this information. To ensure compliance with these rules, this Note should NOT be printed and released under any circumstance, unless released with valid authorization by the Health Information Management (HIM) Department. Patient Name: Salvador Glass Date of : 1940 Sex: Male Admit Date/Time: 04/06/2022 9:16 PM SCREENING TOOLS: AUDIT: AUDIT Screening Tool How often did you have a drink containing alcohol in the past year?: 4 or more times a week How many drinks containing alcohol do you have on a typical day when you are drinking?: 5 or 6 How often did you have five or more drinks on one occasion in the past year?: Less than monthly How often during the last year have you found that you were not able to stop drinking once you started?: Daily or almost daily How often during the last year have you failed to do what was expected of you because of drinking?: Never How often during the last year have you needed a first drink in the morning to get yourself going after a having drinking session?: Never How often during the last year have you had a feeling of guilt or remorse after drinking?: Never How often during the last year have you been unable to remember what happened the night before because of your drinking?: Never Have you or someone else been injured because of your drinking?: No Has a relative, friend, doctor, or other health care worker been concerned about your drinking or suggested you cut down?: Yes, during last year Audit Total Score: 15 AUDIT C: AUDIT C Screening Tool How often did you have a drink containing alcohol in the past year?: 4 or more times a week How many drinks containing alcohol do you have on a typical day when you are drinking?: 5 or 6 How often did you have six or more drinks on one occasion in the past year?: Less than monthly AUDIT-C Total Score: 7 CAGE: CAGE AID: ASSESSMENTS: Plan and Recommendations: In to see patient. SBIRT completed. Audit-C score is 7. Total Score 15. Alcohol lab not drawn upon admission. Patient reports he drinks for pleasure. Patient does not feel his alcohol use is an issue. Patient denied wanting any type of resources or follow up regarding alcohol use. Education provided. Disposition/Comments: Discharge plan uncertain, awaiting therapy evaluations. [facility] 04-08-2022 Consult note Associated Order (s): IP CONSULT TO ONCOLOGY Oncology Inpatient Consult 04/08/2022 Meghan Stokes MD [facility] Patient: Salvador Glass Date of : 1940 (81 y.o.) Referring Provider: Refer to consult order in electronic medical record PCP: Walter Munguia MD ASSESSMENT/PLAN: Salvador Glass 81 y.o. male with history of Salvador Glass is a 81 y.o. male with a history of atrial fibrillation, hypertension, history of leukopenia, history of alcohol abuse who was admitted for hyponatremia and a fall at home. Oncology was consulted due to pancytopenia. Pancytopenia: Patient presented with mild pancytopenia. White count was low at 3.9, hemoglobin 9.9, platelets 123. We do not have any prior labs to compare this with and assess for chronicity. It seems like this has been present though as you mention possibly having low counts at his last lab check. The patient does drink alcohol daily and says he drinks 4-6 rum and Cokes daily and the daughter reports he was diagnosed with cirrhosis when he was in [facility] in May of last year. This could very likely be the etiology of his pancytopenia. B12 and folate levels were checked and are unremarkable. Iron studies are normal. -We will send the rest of his lab tests to assess for any other causes for pancytopenia. We will also order an ultrasound of the abdomen to assess for cirrhosis. -I encouraged him to consider cutting back and working on quitting drinking. Unclear if the fall was related to alcohol use as well. We discussed that the low sodium was likely exacerbated by his drinking as well. Hyponatremia: Present on admission. Nephrology is following and feel that this is consistent with hypovolemic hyponatremia related to diuretic use as he is on hydrochlorothiazide, Lasix, and Aldactone. I also discussed with him that this could be exacerbated by his alcohol use. -Chest x-ray was unremarkable. Could consider a CT of the chest to rule out an underlying lung malignancy. Will follow SUBJECTIVE: Reason for Consult: Pancytopenia History of Present Illness: Salvador Glass is a 81 y.o. male with a history of atrial fibrillation, hypertension, history of leukopenia, history of alcohol abuse who was admitted for hyponatremia and a fall at home. Oncology was consulted due to pancytopenia. The patient presented to the ER via EMS after having a fall at home. He says he was reaching down towards a painter touch up and must of fell. He does not recall the events surrounding what happened. He did have some weakness and dizziness for the past few days. When he presented his sodium was extremely low at 119. He had a CBC checked which noted a mildly low white count at 3.9, hemoglobin of 9.9, and platelets of 123. We have no prior labs to compare this with. He does follow with a PCP, Dr. Munguia in [place]. He was last seen in December. He reports that he was previously on aspirin but stopped this. He is not on any anticoagulation for his atrial fibrillation. This was discussed apparently when he was diagnosed about a year ago and he refused anticoagulation because he bruises easily. The patient denies any obvious bleeding but does have scattered ecchymoses. He does admit to drinking alcohol daily. He drinks 4-6 rum and Cokes daily and has done so for many years. His daughter reports that he was diagnosed with cirrhosis while in [facility] about a year ago. No other fevers, chills, adenopathy, night sweats, weight loss. He lost his in the last year. Pending Lab and Radiology Results Order Current Status Copper, Serum In process HIV 1/2 Screen (4th Generation) In process Hepatitis C Antibody In process IgG, IgA, IgM Immunoglobulins In process Immunofixation, Serum In process Immunoglobulin Free Light Chains,Blood In process LDH In process Protein Electrophoresis, Blood In process Sodium In process US Abdomen Complete In process Zinc In process Interpretation of Testing: I personally reviewed the Chest X-ray and agree with the interpretation(s). Review of Systems: General Constitutional: + Fatigue, denied fevers, chills, anorexia, weight loss, or night sweats Eyes: denied blurry vision ENT: denied nasal drainage, sinus pressure Mouth: denied oral ulcers Endocrine: unusual weight loss, heat or cold intolerance, polyuria, polydipsia, or hair loss/gain Lymphatics: no new adenopathy in cervical, supraclavicular, axillary, inguinal regions Respiratory: no cough, SOB CV: denied palpitations, chest pain/pressure, PND, orthopnea. GI: denied abd pain, n/v/d, constipation, melena. : denied dysuria, urgency, frequency or hematuria. Skin: no rashes or lesions Musculoskeletal: denied muscle/joint/bone pain Hematologic/lmmunologic: no adenopathy, bleeding, easy bruisiality or recurrent infection. Neurology: Denied new headaches, numbness or weakness of extremities Psych: denied anxiety, depression or mood swings Past Medical History: Diagnosis Date Arrhythmia A Fib Bradycardia Hypertension Leukopenia Mild anemia Psoriasis Renal failure History reviewed. No pertinent surgical history. Family History Problem Relation Age of Onset Emphysema Mother Diabetes Father Asthma Father Social History Tobacco Use Smoking Status Former Smokeless Tobacco Never Tobacco Comments quit in his 40s Additional History Comments: None Allergies: Patient has no known allergies. Current HOME Medications: No outpatient medications have been marked as taking for the 04/06/22 encounter (Hospital Encounter). Current HOSPITAL Medications: acetaminophen (TYLENOL) tablet 650 mg, 650 mg, Oral, Q6H PRN aluminum-magnesium hydroxide-simethicone (MAALOX PLUS) 200-200-20 mg/5 mL suspension 30 mL, 30 mL, Oral, Q4H PRN amLODIPine (NORVASC) tablet 5 mg, 5 mg, Oral, Daily aspirin EC tablet 81 mg, 81 mg, Oral, Daily bacitracin zinc ointment, , Topical, Daily bisacodyL (DULCOLAX) suppository 10 mg, 10 mg, Rectal, Daily PRN docusate sodium (COLACE) capsule 100 mg, 100 mg, Oral, Daily hydrALAZINE (APRESOLINE) tablet 50 mg, 50 mg, Oral, TID magnesium hydroxide (MOM) 400 mg/5 mL suspension 2,400 mg, 30 mL, Oral, Daily PRN melatonin tablet 3 mg, 3 mg, Oral, Nightly PRN ondansetron (ZOFRAN-ODT) disintegrating tablet 4 mg, 4 mg, Oral, Q6H PRN OR ondansetron (ZOFRAN) injection 4 mg, 4 mg, Intravenous, Q6H PRN pantoprazole (PROTONIX) EC tablet 40 mg, 40 mg, Oral, Daily perflutren lipid microspheres (DEFINITY) 0.143 mg/mL solution 0-10 mL of mixture, 0-10 mL of mixture, Intravenous, Once in imaging senna (SENOKOT) tablet 8.6 mg, 1 tablet, Oral, BID PRN Saline lock IV, , , Continuous AND sodium chloride (PF) (NS) flush 5 mL, 5 mL, Intravenous, PRN AND sodium chloride (PF) (NS) flush 5 mL, 5 mL, Intravenous, Q8H EVELYN AND sodium chloride 0.9% (NS), 0-150 mL/hr, Intravenous, PRN sodium chloride 0.9% (NS), 100 mL/hr, Intravenous, Continuous traZODone (DESYREL) tablet 50 mg, 50 mg, Oral, Nightly PRN OBJECTIVE: Physical Examination: BP (!) 164/70 Pulse 65 Temp 97.9 F (36.6 C) (Oral) Resp 16 Ht 6' Wt 82.9 kg (182 lb 12.2 oz) SpO2 98% BMI 24.79 kg/m ECOG 2-3 Gen: Elderly male, resting in bed HEENT: Left eye with ecchymosis and swelling, bandage over this. Anicteric sclera, MMM Neck: supple, no thyromegaly or LAD Lymphatics: no cervical, axillary, or inguinal adenopathy Chest: Mild basilar crackles, otherwise CTAB, no w/r/r, no respiratory distress CV: RRR, no m/r/g, normal S1, S2 Abd: soft, nontender, nondistended, +BS, no hepatosplenomegaly Ext: wwp, no c/c/e Skin: Scattered ecchymoses Neuro: Alert and oriented x4, no focal deficits, moves all four extremities Psych: Mood normal. Laboratory and Additional Data Reviewed: Reviewed 04/08/22 9:18 AM: Laboratory, Radiology, and Medications Lab Results Component Value Date WBC 2.82 (L) 04/08/2022 HGB 9.5 (L) 04/08/2022 HCT 26.5 (L) 04/08/2022 MCV 89.2 04/08/2022 PLT 115 (L) 04/08/2022 RBC 2.97 (L) 04/08/2022 Lab Results Component Value Date GLUCOSE 104 (H) 04/08/2022 CALCIUM 8.5 04/08/2022 NA 124 (L) 04/08/2022 K 3.9 04/08/2022 CL 94 (L) 04/08/2022 BUN 8 04/08/2022 CREATININE 0.67 (L) 04/08/2022 Lab Results Component Value Date ALT 26 04/06/2022 AST 25 04/06/2022 ALKPHOS 91 04/06/2022 BILITOT 1.9 (H) 04/06/2022 [facility] 04-07-2022 Consult note Formatting of th is note is different from the original. Occupational Therapy OCCUPATIONAL THERAPY EVALUATION Dx: Hyponatremia Fall, closed head injury Skilled Therapy Needs After Discharge Anticipate Resolution of Current Assessment Limitations Including: Pain, Mechanical Barriers, Social Support Are Skilled Therapy Services Needed After Discharge: Yes Intensity of Skilled Therapy: 2-3 days per week (If family able to assist at discharge) Anticipated Duration of Skilled Therapy: Duration 7 - 10 days DME Recommendation: (TBD) Rehab Potential: Good Outcomes Measures Prior Function Daily Activity Raw Score: 24 Prior Function Daily Activity % Impaired: 0% AM-PAC Daily Activity Raw Score: 18 AM-PAC Daily Activity % Impaired: 46.65% Occupational Therapy Assessment The patient's current functional participation deficits are grooming, UE dressing, LE dressing, bathing, toileting, home management, meal preparation, functional mobility, driving. This reduced independence will limit their life roles of premorbid level individual, family member. The patient's co morbidities do affect patient performance in the above activities and roles. The performance deficits are a result of musculoskeletal impairment(s) in generalized debility including strength, balance, acitvity tolerance, pain, , and knowledge deficit. The patient's family / caregiver support is a operations management professionals for return to prior level of function. The patient's compliance is a operations management professionals to return to prior level of function. During the assessment, minimal to moderate modification of task was required and several treatment options were identified in the plan of care. This consultation required expanded review of the medical and therapy history. Activity Tolerance Activity Tolerance: Tolerates 10 - 20 min activity with multiple rests Therapy Precautions Orthotic Devices: No Weight Bearing Status: WFL General Rehab Precautions: Fall risk Cognition Overall Cognitive Status: Within Functional Limits Arousal/Alertness: Appropriate responses to stimuli Orientation Level: Oriented X4 Executive functioning: WFL Safety Judgment: Decreased awareness of need for assistance, Decreased awareness of need for safety Problem Solving: Assistance required to generate solutions Attention: Attends to quiet environment Hearing Status: Hard of hearing Social Interaction: WFL ADL Grooming: Set-up Toileting: (declines need) Functional Mobility: Contact guard assist, Adaptive equipment (side steps to the right toward HOB. No LOB noted) Bed Mobility Supine to Sit: Stand by assist Sit to Supine: Stand by assist Functional Transfers Sit to Stand: Stand by assist Bed to Chair Transfers: Contact guard assist Software Engineer: wheeled walker Home Living Obtained Home Living and PLOF info from: Patient Lives With: Alone Type of Home: House Home Layout: One level Steps to enter home: Yes Rails to enter home: 2 rails Number of stairs to enter home: 3 Bathroom Shower/Tub: Tub/shower unit Bathroom Toilet: Standard Bathroom Equipment: Grab bars in shower Mobility Equipment: Cane, Wheeled walker ADL Equipment: Long handled shoe horn Prior Level of Function Receives Help From: Family Level of [place] - Transfers/Ambulation/Mobility: Independent with functional transfers, Independent with household ambulation, Independent with community ambulation Level of [place] - ADLs: Independent Level of [place] - Homemaking: Independent Driving: Patient drives Subjective Impression - Prior Function: Pt reports he is ind at baseline without AD. Reports his son can stay with him at discharge to assist as needed. Pt lost his in July of last year. Past Medical History: Diagnosis Date Arrhythmia A Fib Bradycardia Hypertension Leukopenia Mild anemia Psoriasis Renal failure History reviewed. No pertinent surgical history. For complete objective data, detailed plan of care and patient education refer to: OT Evaluation flowsheet, OT Evaluation and Treatment flowsheet, OT Treatment flowsheet, patient Plan of Care, Plan of Care progress note, and Patient Education. This note stands as the current Discharge Summary upon patient discharge from the hospital or completion of Occupational Therapy Plan of Care. [facility] 04-07-2022 Consult note Formatting of th is note is different from the original. NEPHROLOGY CONSULTATION NOTE [facility] Patient Name: Salvador Glass MR #: [id number] : 1940 Requesting physician: Dr Heather DONALD Reason for consult: Hyponatremia Impression/Plan: Hyponatremia: hypovolemic hyponatremia related to diuretic use (hydrochlorothiazide, Lasix, and Aldactone). Continue to hold diuretics. We will obtain Urine sodium, serum and urine osmo. Monitor Sodium every 4hours with goal sodium 126 in he next 24hrs. We will continue with IV hydration for now, if minimal improvement in his sodium levels he may require tolvaptan. No need for 3% saline at this time. Neurologic status is stable. Syncope: patient does have Hx of AFib is on Toprol in the OP setting noted to have bradycardia may have some tachy-yimi. EP has been consulted. Fall with closed head injury: management per primary team, trauma team following. Pancytompenia: management per primary team Hem/Onc has been consulted. History of Presenting Illness: Salvador Glass is a 81 y.o. male on hospital day 0 with a history of AFib, HTN, bradycardia, Leukopenia, Psoriasis who presented to the ER via EMS after experiencing a fall at home per the patient he went to clean up in the kitchen and woke up on the floor and he was bleeding he denies feeling dizzy or light headed before falling but he had been dizzy off and on for the past 3days. He puts little salt on his food, he drinks on average 2cups of coffee a day, 2 glassess of water a day and 1-2 glasses of caffeine free soda each day. He describes his cups as 8-10oz in size. History: Past Medical History: Diagnosis Date Arrhythmia A Fib Bradycardia Hypertension Leukopenia Mild anemia Psoriasis Renal failure History reviewed. No pertinent surgical history. Family History: Family History Problem Relation Age of Onset Emphysema Mother Diabetes Father Asthma Father [] Unable to obtain due to ventilated and/or neurologic status Social History Socioeconomic History Marital status: Tobacco Use Smoking status: Former Smokeless tobacco: Never Tobacco comments: quit in his 40s Vaping Use Vaping Use: Never used Substance and Sexual Activity Alcohol use: Yes Comment: occasional Drug use: Never [] Unable to obtain due to ventilated and/or neurologic status Living Arrangements: Alone Support Systems: Children, Family members Home Medications: Outpatient Medications as of 04/07/2022 Medication Sig amLODIPine (NORVASC) 5 MG tablet Take 5 mg by mouth daily . aspirin 81 MG EC tablet Take 1 (one) tablet (81 mg total) by mouth daily . b complex vitamins capsule Take 1 capsule by mouth daily . calcium carbonate 168 mg calcium (420 mg) Chew Chew and Swallow daily as needed . carvediloL (COREG) 6.25 MG tablet Take 1 (one) tablet (6.25 mg total) by mouth 2 (two) times a day . clobetasol (TEMOVATE) 0.05 % scalp solution Apply topically daily Apply thin film onto dry scalp affected areas only. Leave in place for 15 min before lathering and rinsing. . furosemide (LASIX) 40 MG tablet Take 1 (one) tablet (40 mg total) by mouth daily . hydrALAZINE (APRESOLINE) 50 MG tablet Take 50 mg by mouth 3 (three) times a day . hydroCHLOROthiazide (HYDRODIURIL) 25 MG tablet Take 12.5 mg by mouth daily . hydrocortisone 1 % cream Apply topically 2 (two) times a day . ketoconazole (NIZORAL) 2 % cream APPLY CREAM TOPICALLY TO AFFECTED AREA TWICE DAILY pantoprazole (PROTONIX) 40 MG tablet Take 1 (one) tablet (40 mg total) by mouth daily . spironolactone (ALDACTONE) 25 MG tablet Take 1 (one) tablet (25 mg total) by mouth daily . triamcinolone (KENALOG) 0.1 % cream Apply topically 2 (two) times a day Reasons: Psoriasis of Scalp. Current Hospital Medications: Scheduled Meds: amLODIPine 5 mg Oral Daily aspirin 81 mg Oral Daily bacitracin zinc Topical Daily docusate sodium 100 mg Oral Daily hydrALAZINE 50 mg Oral TID pantoprazole 40 mg Oral Daily sodium chloride (PF) 5 mL Intravenous Q8H EVELYN Continuous Infusions: sodium chloride 0.9 % sodium chloride 0.9 % 75 mL/hr (04/07/22624) PRN Meds:.acetaminophen, aluminum-magnesium hydroxide-simethicone, bisacodyL, magnesium hydroxide, melatonin, ondansetron OR ondansetron, perflutren lipid microspheres, senna, Saline lock IV AND sodium chloride (PF) AND sodium chloride (PF) AND sodium chloride 0.9 %, traZODone sodium chloride 0.9 % sodium chloride 0.9 % 75 mL/hr (04/07/22624) Allergies: I have reviewed the patient's allergies. Patient has no known allergies. Review of Systems: [x] CV, Resp, GI, Neuro, and all other systems reviewed and negative other than listed in HPI. [] Unable to obtain due to intubation and/or neurologic status. Objective Findings: Vitals:BP (!) 156/68 Pulse (!) 39 Temp 97.7 F (36.5 C) (Oral) Resp 16 Ht 6' Wt 82.9 kg (182 lb 12.2 oz) SpO2 98% BMI 24.79 kg/m Intake/Output last 3 shifts: Intake/Output Summary (Last 24 hours) at 04/07/2022 1539 Last data filed at 04/07/2022 0910 Gross per 24 hour Intake 499.98 ml Output 600 ml Net -100.02 ml I/O last 3 completed shifts: In: 500 [IV Piggyback:500] Out: 250 [Urine:250] Physical Examination: General: Age appropriate, NAD. HEENT: Normocephalic, Left eye with ecchymosis, and edema noted. Coban wrap around head with dried blood noted in his hair. Neck: No JVD. Heart: Regular, no murmur, no rub/gallop. Lungs: Clear to ascultation, no rales/wheezing/rhonchi. Good chest wall excursion. Abdomen: Soft, nontender, no supra-public fullness or tenderness. Extremities: No clubbing/cyanosis, no edema. Skin: Warm, dry, normal turgor, no rash, no bruise, no petichiae. B/l lower arms with kerlex dressing dry and intact, Neuro: No myoclonus or tremor. Psych: Normal affect. : [] Win present [x] Win not present Results/Medications Reviewed: 04/07/22 3:39 PM: Laboratory, Microbiology, Pathology, Radiology, Cardiology, Medications and Transcriptions Laboratory: Results from last 7 days Lab Units 04/07/22 0507 04/06/22 2142 WBC K/mcL 3.39* 3.97* HGB g/dL 9.4* 9.9* HCT % 26.9* 28.9* PLT K/mcL 130* 123* Results from last 7 days Lab Units 04/07/22 1208 04/07/22 0506 04/06/22 2142 SODIUM mmol/L 119* 121* 121* 119* POTASSIUM mmol/L -- 4.4 4.0 CHLORIDE mmol/L -- 90* 87* BICARB mmol/L -- 16* 20* BUN mg/dL -- 8 11 CREATININE mg/dL -- 0.61* 0.87 EGFR mL/min/1.73 m2 -- 98 88 GLUCOSE mg/dL -- 92 105* CALCIUM mg/dL -- 8.3* 8.7 MAGNESIUM mg/dL -- 1.7 1.8 PHOSPHORUS mg/dL -- 2.9 -- Urinalysis Results from last 7 days Lab Units 04/07/22 0039 COLOR, UR Yellow CLARITY, UR Clear SPEC GRAV 1.013 PH, UR 5.5 GLUCOSE, UR mg/dL Negative KETONES, UR mg/dL Trace* BILIRUBIN, UR Negative UROBILINOGEN, UR mg/dL <2.0 BLOOD, UR Negative NITRITE, UR Negative LEUK BOLIVAR, UR Negative MUCUS, UR /lpf Rare WBC, UR /hpf <1 BACTERIA, UR /hpf None Seen HYALINE CASTS /lpf 0-2 CREATININE UR mg/dL 53.1 Comments: Thank you for allowing us to participate in the care of this patient. We will continue to follow. Please call if questions or concerns arise. [facility] 04-07-2022 Note Formatting of this n ote might be different from the original. Problem: Actual or potential alteration in health Goal: Absence of healthcare acquired conditions Outcome: Partially Met Goal: Knowledge of Interdisciplinary Plan of Care Outcome: Partially Met Goal: Knowledge of Enviroment Outcome: Partially Met [facility] 04-07-2022 Note Formatting of this n ote might be different from the original. reviewed [facility] 04-07-2022 Consult note Formatting of th is note is different from the original. [facility] SURGICAL HISTORY & PHYSICAL/CONSULTATION NOTE ========Abrasions of multiple sites Assessment & Plan CT H/N/maxface (-) Abrasions noted left cheek, left forehead, right elbow, bilateral hands Recommending bacitracin Adaptic changed daily to abrasions Apply gauze wrap around forehead abrasion to apply pressure to control bleeding. Fall Assessment & Plan Fall at home yesterday evening. CT head neck face max - negative No further imaging at this time The following Vizient risk variables were noted and present on admission: Cardiac Arrhythmia and Hyponatremia Please see assessment and plan for further details. CHIEF COMPLAINT: Fall and abrasions HISTORY OF PRESENT ILLNESS / INJURY (HPI): Salvador Glass is a 81 y.o. male patient of Walter Munguia MD with history of atrial fibrillation, HTN, leukopenia. Takes ASA daily. He presented to [facility] ED today after sustaining a fall yesterday evening. Amnesic to events surround the fall. CT imaging in ED completed with no acute findings. He has external abrasions as noted above. Trauma consulted due to abrasion on forehead with bleeding. Dressings removed neurologic recommending Vaseline Adaptic to all abrasions. Dr. Guillen at bedside. The rest of exam was with benign findings. PAST MEDICAL HISTORY (PMH): Past Medical History: Diagnosis Date Arrhythmia A Fib Bradycardia Hypertension Leukopenia Mild anemia Psoriasis Renal failure History reviewed. No pertinent surgical history. Social History Tobacco Use Smoking status: Former Smokeless tobacco: Never Tobacco comments: quit in his 40s Vaping Use Vaping Use: Never used Substance Use Topics Alcohol use: Yes Comment: occasional Drug use: Never Family History Problem Relation Age of Onset Emphysema Mother Diabetes Father Asthma Father MEDICATIONS: No current facility-administered medications on file prior to encounter. Current Outpatient Medications on File Prior to Encounter Medication Sig Dispense Refill amLODIPine (NORVASC) 5 MG tablet Take 5 mg by mouth daily . aspirin 81 MG EC tablet Take 1 (one) tablet (81 mg total) by mouth daily . b complex vitamins capsule Take 1 capsule by mouth daily . calcium carbonate 168 mg calcium (420 mg) Chew Chew and Swallow daily as needed . carvediloL (COREG) 6.25 MG tablet Take 1 (one) tablet (6.25 mg total) by mouth 2 (two) times a day . clobetasol (TEMOVATE) 0.05 % scalp solution Apply topically daily Apply thin film onto dry scalp affected areas only. Leave in place for 15 min before lathering and rinsing. . furosemide (LASIX) 40 MG tablet Take 1 (one) tablet (40 mg total) by mouth daily . hydrALAZINE (APRESOLINE) 50 MG tablet Take 50 mg by mouth 3 (three) times a day . hydroCHLOROthiazide (HYDRODIURIL) 25 MG tablet Take 12.5 mg by mouth daily . hydrocortisone 1 % cream Apply topically 2 (two) times a day . ketoconazole (NIZORAL) 2 % cream APPLY CREAM TOPICALLY TO AFFECTED AREA TWICE DAILY pantoprazole (PROTONIX) 40 MG tablet Take 1 (one) tablet (40 mg total) by mouth daily . spironolactone (ALDACTONE) 25 MG tablet Take 1 (one) tablet (25 mg total) by mouth daily . triamcinolone (KENALOG) 0.1 % cream Apply topically 2 (two) times a day Reasons: Psoriasis of Scalp. ALLERGIES: No Known Allergies REVIEW OF SYSTEMS: Eyes: Negative for eye pain or vision changes Ears, Nose, Mouth, Throat: Negative for rhinorrhea, nasal pain, dysphagia, hoarseness Cardiovascular: Negative for chest pain, orthopnea, edema. RLE + edema. Respiratory: Negative for cough, shortness of breath Gastrointestinal: Negative for abdominal pain, nausea, vomiting, diarrhea Genitourinary: Negative for dysuria, hematuria Musculoskeletal: Negative for pain, joint edema Skin/Breast: Negative for rash, itching, lesions. Abrasions to left cheek, left forehead, right elbow, bilateral hands. Neurological: Negative for paresthesia, paralysis, loss of bowel or bladder control, loss of consciousness Hematologic/Lymphatic: Negative for anticoagulant use, antiplatelet use. Allergic/Immunologic: Allergies reviewed, no use of immunosuppressants or active chemotherapy Other than the above items, the remainder of a complete review of systems is otherwise negative. PHYSICAL EXAM: BP (!) 142/61 Pulse (!) 58 Temp 97.5 F (36.4 C) (Oral) Resp 15 Ht 6' Wt 82.9 kg (182 lb 12.2 oz) SpO2 98% BMI 24.79 kg/m Body mass index is 24.79 kg/m . GENERAL: Appears age appropriate. NEUROLOGICAL: Alert and oriented X 3. Follows commands with extremities x4, equal strength. Pupils equal, round, reactive to light. EOMI. No focal neurologic deficits noted. GCS = 15 Head Eyes Ear Nose Throat: Head: with abrasion to left cheek and left forehead. Eyes: left eye hematoma. Conjunctivae/sclerae/corneas clear. Ears: External ear normal. Hearing: [place] - hearing aids. No drainage. Nose: nares normal, septum midline, no drainage or nasal tenderness. Throat: phonation normal Neck: Supple, trachea midline, no midline tenderness, step offs, bony crepitus. CARDIOVASCULAR: yimi/regular rate and rhythm. No clicks, rubs, murmurs or gallops noted. + RLE edema noted. 2+ pulses radial/DP/PT bilaterally. RESPIRATORY: Lungs, clear to auscultation bilaterally. No rhonchi, wheezes or crackles. Respiratory effort unlabored without use of accessory muscles. ABDOMINAL: Rounded, soft, nontender, nondistended. No guarding or peritoneal signs. GENITOURINARY: Normal genitalia for age without lesion or trauma. Rectal exam - defer MUSCULOSKELETAL: Extremities atraumatic without gross deformity x4. ROM appropriate for age. No clubbing, cyanosis or joint edema. SPINE: No midline tenderness, stepoffs, or bony tenderness to thoracic and lumbar spine SKIN: Skin warm and dry. No rashes or lesions. Abrasions noted above. IMAGING STUDIES: I have reviewed the following: CT H/N/maxface LABORATORY STUDIES: Lab Results Component Value Date WBC 3.39 (L) 04/07/2022 HGB 9.4 (L) 04/07/2022 HCT 26.9 (L) 04/07/2022 MCV 90.6 04/07/2022 PLT 130 (L) 04/07/2022 RBC 2.97 (L) 04/07/2022 Lab Results Component Value Date GLUCOSE 92 04/07/2022 CALCIUM 8.3 (L) 04/07/2022 NA 121 (L) 04/07/2022 NA 121 (L) 04/07/2022 K 4.4 04/07/2022 CL 90 (L) 04/07/2022 BUN 8 04/07/2022 CREATININE 0.61 (L) 04/07/2022 Lab Results Component Value Date ALT 26 04/06/2022 AST 25 04/06/2022 ALKPHOS 91 04/06/2022 BILITOT 1.9 (H) 04/06/2022 Associated attestation - Mindy, Raymundo Haas MD - 04/07/2022 12:48 PM EDT TRAUMA/ ACUTE CARE SURGERY ATTENDING NOTE Please link this note as an addendum to the resident or AIRAM note with the same day of service. The patient was seen and examined by me, the attending trauma surgeon, on multidisciplinary rounds on the date of service listed above. I have reviewed the resident or AIRAM note with the relevant labs, studies, and valuation consultant notes. I have reviewed and agree with the documented history, exam, and plan of care, with the following additions and corrections: Today: Salvador Glass is a 81 y.o. male presenting following fall from standing. Patient has a history of atrial fibrillation, he is rate controlled and on aspirin, he is not otherwise anticoagulated. Patient is amnestic to the events surrounding his fall. It is suspected that this may be related to his cardiac arrhythmia or hypoNa. Patient has been admitted to medicine for work-up. CT of head, C-spine, face are without acute findings. Surgery was consulted for evaluation of patient's wounds. On physical examination, GCS is 14, he is neurovascularly intact. Patient with bradycardia likely related to rate control, he is normotensive. Patient has no acute complaints. Patient has a skin tear of his right elbow, right hand, left hand, left cheek, and an abrasion to his left forehead. None of these are lacerations requiring closure at this time. Recommend local wound care with Adaptic daily to all of these regions. Patient has no other complaints, he does have ecchymosis all over his body, but no areas of tenderness to palpation. At this time would not recommend further imaging or work-up. Further management per primary team. Thank you for this consult, please call with questions. Pertinent labs and imaging personally reviewed with evidence of hypoNa, hypoCl, pancytopenia. The following Vizient risk variables were noted and present on admission: Encephalopathy, Coagulation Defect, and Hyponatremia Please see assessment and plan for further details. Tyler Guillen MD, FACS, DABS Trauma, Critical Care, Acute Care Surgery [facility] 04-07-2022 Evaluation + Plan note Associated Problem(s): Fall - [facility] 04-07-2022 Evaluation + Plan note Associated Problem(s): Abrasions of multiple sites - [facility] 04-07-2022 Consult note Associated Order (s): IP CONSULT TO CARDIOLOGY Patient Name: Salvador Glass Admit Date: [id number] MR #: [id number] : 1940 Assessment: Salvador Glass is a 81 year old male with: + syncope and facial trauma at home 04/06/22 + hx of atrial fibrillation, + not on OAC at home, pt refuses and declined Cardioversion in the past (as far back as 03/2019). Takes aspirin 81 mg daily + Currently has pancytopenia with heme/onc consutled + EF 59% on echo 03/2019 + LA and RA mildly dilated on echo 03/2019 + mild to moderate MR and TR with normal RVSP on echo 03/2019 + no known CAD NM myocardial perfusion 03/28/19: no ischemia , EF 74% + hyponatremia on admission ( Na 121) Nephrology consulted Plan 04/07/2022: reviewed with Dr Haji - will monitor heart rhythm for now - continue to hold HR limiting meds (coreg 6.25. mg BID at home being held) -When metabolic issues resolve, will place a pacemaker (likely Micra) prior to discharge -Echo results pending -Sodium remains low at 121 today -Watch Hgb/ 9.4/26.9 & platelets 130 today - will likely consider Watchman as an outpt -Goal K 4.0-4.7, Potassium today is 4.4 -Goal Mg 2.0-2.2 , Mg today is 1.7- HOSPITALISTS, please replace Reviewed old records Discussed in detail with patient Dr Kodak Haji will Independently review workup Subjective Reason for Consultation: Fall with concern for complete heart block Chief Complaint: Syncopal episode from standing position The following Vizient risk variables were noted and present on admission: Cardiac Arrhythmia, Thrombocytopenia, and Hyponatremia Please see assessment and plan for further details. History of Present Illness: Salvador Glass is a 81 y.o. male with a history of atrial fibrillation not on OAC at home bradycardia, hypertension, leukopenia, mild anemia, thrombocyotpenia, psoriasis, and renal failure that presented by squad on 04/06/22 evening after a fall at home with loss of consciousness. He recalls eating dinner then going to place food in his refrigerator and then awakened on the floor with blood around him. He does not recall feeling lightheaded or dizzy or feeling palpitations prior to the fall. He called 911 himself when he was able. He reports this happened a year ago and he went to [facility] and was told he had a heart attack, but does not recall having a heart cath. He thinks he had a stress test in the hospital. He denies palpitations with his atrial fib. He has had lower extremity edema (Right >left) for quite some time. He has even had wraps on his legs from his PCP . He has given up on virgilio hose. He is also adamant he does not want on OAC at this point since he bleeds so easily when he cuts himself. On admission his EKG showed atrial fib with SVR heart rate 45 bpm. Abnormal Labs on admission 04/06/2022: Sodium 119, chloride 87, bicarb 20, total bili 1.9, BNP 2,644, WBCs 3.97, hemoglobin 9.9, 28.9, platelets 123 ECG's: reviewed EKG 03/28/2019: atrial fib 66 bpm QRS 118, QTc 434 EKG 04/06/2022 A. fib with SVR and right bundle branch block 45 bpm QRS 134, QTc 451 EKG 04/07/2022 A. fib with SVR and incomplete right bundle branch block 48 bpm QRS 118, QTc 412 Telemetry: Reviewed atrial fib 60's Cardiac Studies: Reviewed and noted. Echo pending Radiographics: Pertinent studies reviewed and noted. Current Facility-Administered Medications Medication Dose Route Frequency Provider Last Rate Last Admin acetaminophen (TYLENOL) tablet 650 mg 650 mg Oral Q6H PRN Connor Romero MD aluminum-magnesium hydroxide-simethicone (MAALOX PLUS) 200-200-20 mg/5 mL suspension 30 mL 30 mL Oral Q4H PRN Connor Romero MD amLODIPine (NORVASC) tablet 5 mg 5 mg Oral Daily Connor Romero MD 5 mg at 04/07/22 0916 aspirin EC tablet 81 mg 81 mg Oral Daily Connor Romero MD bisacodyL (DULCOLAX) suppository 10 mg 10 mg Rectal Daily PRN Connor Romero MD docusate sodium (COLACE) capsule 100 mg 100 mg Oral Daily Connor Romero MD 100 mg at 04/07/22 0916 hydrALAZINE (APRESOLINE) tablet 50 mg 50 mg Oral TID Connor Romero MD 50 mg at 04/07/22 0916 magnesium hydroxide (MOM) 400 mg/5 mL suspension 2,400 mg 30 mL Oral Daily PRN Connor Romero MD melatonin tablet 3 mg 3 mg Oral Nightly PRN Connor Romero MD ondansetron (ZOFRAN-ODT) disintegrating tablet 4 mg 4 mg Oral Q6H PRN Connor Romero MD Or ondansetron (ZOFRAN) injection 4 mg 4 mg Intravenous Q6H PRN Connor Romero MD pantoprazole (PROTONIX) EC tablet 40 mg 40 mg Oral Daily Connor Romero MD 40 mg at 04/07/22 0916 perflutren lipid microspheres (DEFINITY) 0.143 mg/mL solution 0-10 mL of mixture 0-10 mL of mixture Intravenous Once in imaging Shwetha Carr MD 2 mL of mixture at 04/07/22 1027 senna (SENOKOT) tablet 8.6 mg 1 tablet Oral BID PRN Connor Romero MD sodium chloride (PF) (NS) flush 5 mL 5 mL Intravenous PRN Connor Romero MD And sodium chloride (PF) (NS) flush 5 mL 5 mL Intravenous Q8H EVELYN Connor Romero MD 5 mL at 04/07/22 0626 And sodium chloride 0.9% (NS) 0-150 mL/hr Intravenous PRN Connor Romero MD sodium chloride 0.9% (NS) 75 mL/hr Intravenous Continuous Connor Romero MD 75 mL/hr at 04/07/22 0625 75 mL/hr at 04/07/22 06 traZODone (DESYREL) tablet 50 mg 50 mg Oral Nightly PRN Connor Romero MD Current Facility-Administered Medications Medication Dose Route Frequency Provider Last Rate Last Admin acetaminophen (TYLENOL) tablet 650 mg 650 mg Oral Q6H PRN Connor Romero MD aluminum-magnesium hydroxide-simethicone (MAALOX PLUS) 200-200-20 mg/5 mL suspension 30 mL 30 mL Oral Q4H PRN Connor Romero MD amLODIPine (NORVASC) tablet 5 mg 5 mg Oral Daily Connor Romero MD 5 mg at 04/07/22915 aspirin EC tablet 81 mg 81 mg Oral Daily Connor Romero MD bisacodyL (DULCOLAX) suppository 10 mg 10 mg Rectal Daily PRN Connor Romero MD docusate sodium (COLACE) capsule 100 mg 100 mg Oral Daily Connor Romero MD 100 mg at 04/07/22915 hydrALAZINE (APRESOLINE) tablet 50 mg 50 mg Oral TID Connor Romero MD 50 mg at 04/07/22915 magnesium hydroxide (MOM) 400 mg/5 mL suspension 2,400 mg 30 mL Oral Daily PRN Connor Romero MD melatonin tablet 3 mg 3 mg Oral Nightly PRN Connor Romero MD ondansetron (ZOFRAN-ODT) disintegrating tablet 4 mg 4 mg Oral Q6H PRN Connor Romero MD Or ondansetron (ZOFRAN) injection 4 mg 4 mg Intravenous Q6H PRN Connor Romero MD pantoprazole (PROTONIX) EC tablet 40 mg 40 mg Oral Daily Connor Romero MD 40 mg at 04/07/22 09 perflutren lipid microspheres (DEFINITY) 0.143 mg/mL solution 0-10 mL of mixture 0-10 mL of mixture Intravenous Once in imaging Shwetha Carr MD 2 mL of mixture at 04/07/22 1027 senna (SENOKOT) tablet 8.6 mg 1 tablet Oral BID PRN Connor Romero MD sodium chloride (PF) (NS) flush 5 mL 5 mL Intravenous PRN Connor Romero MD And sodium chloride (PF) (NS) flush 5 mL 5 mL Intravenous Q8H EVELYN Connor Romero MD 5 mL at 04/07/22 0626 And sodium chloride 0.9% (NS) 0-150 mL/hr Intravenous PRN Connor Romero MD sodium chloride 0.9% (NS) 75 mL/hr Intravenous Continuous Connor Romero MD 75 mL/hr at 04/07/22 0625 75 mL/hr at 04/07/22 0625 traZODone (DESYREL) tablet 50 mg 50 mg Oral Nightly PRN Connor Romero MD Past History: Past Medical History: Diagnosis Date Arrhythmia A Fib Bradycardia Hypertension Leukopenia Mild anemia Psoriasis Renal failure History reviewed. No pertinent surgical history. Family History Problem Relation Age of Onset Emphysema Mother Diabetes Father Asthma Father Social History Socioeconomic History Marital status: Tobacco Use Smoking status: Former Smokeless tobacco: Never Tobacco comments: quit in his 40s Vaping Use Vaping Use: Never used Substance and Sexual Activity Alcohol use: Yes Comment: occasional Drug use: Never Allergy Information: I have reviewed the patient's allergies. Patient has no known allergies. Home Medications: Outpatient Medications as of 04/07/2022 Medication Sig amLODIPine (NORVASC) 5 MG tablet Take 5 mg by mouth daily . aspirin 81 MG EC tablet Take 1 (one) tablet (81 mg total) by mouth daily . b complex vitamins capsule Take 1 capsule by mouth daily . calcium carbonate 168 mg calcium (420 mg) Chew Chew and Swallow daily as needed . carvediloL (COREG) 6.25 MG tablet Take 1 (one) tablet (6.25 mg total) by mouth 2 (two) times a day . clobetasol (TEMOVATE) 0.05 % scalp solution Apply topically daily Apply thin film onto dry scalp affected areas only. Leave in place for 15 min before lathering and rinsing. . furosemide (LASIX) 40 MG tablet Take 1 (one) tablet (40 mg total) by mouth daily . hydrALAZINE (APRESOLINE) 50 MG tablet Take 50 mg by mouth 3 (three) times a day . hydroCHLOROthiazide (HYDRODIURIL) 25 MG tablet Take 12.5 mg by mouth daily . hydrocortisone 1 % cream Apply topically 2 (two) times a day . ketoconazole (NIZORAL) 2 % cream APPLY CREAM TOPICALLY TO AFFECTED AREA TWICE DAILY pantoprazole (PROTONIX) 40 MG tablet Take 1 (one) tablet (40 mg total) by mouth daily . spironolactone (ALDACTONE) 25 MG tablet Take 1 (one) tablet (25 mg total) by mouth daily . triamcinolone (KENALOG) 0.1 % cream Apply topically 2 (two) times a day Reasons: Psoriasis of Scalp. Review of Systems: All system(s) were reviewed. Pertinent positive and negative findings are noted in the HPI. All system negative unless otherwise noted in the HPI Physical Examination: BP (!) 142/61 Pulse (!) 58 Temp 97.5 F (36.4 C) (Oral) Resp 15 Ht 6' Wt 82.9 kg (182 lb 12.2 oz) SpO2 98% BMI 24.79 kg/m Constitutional Alert and oriented X3 in no acute distress. Daughter and son in law present Head: normocephalic. Neck: No masses noted HEENT Anicteric-left facial trauma and edema. Heart:. Normal Intensity S1 and S2. No murmurs. Lungs: Clear to auscultation. Good air movement. No crackles noted. Abdomen is soft and nontender. Extremities: Extremities are warm. + 1 bilateral lower extremity edema (R>L). Adequate peripheral pulses. Skin: warm, dry , and thin skin with multiple ecchymotic areas on upper extremities and upper chest. left facial trauma. Dressings on left face, head, and bilateral arms Neuro: nonfocal Psych not suicidal or homicidal , pleasant and cooperative Intake/Output last 3 shifts: I/O last 3 completed shifts: In: 500 [IV Piggyback:500] Out: 250 [Urine:250] Laboratory and Additional Data Reviewed: Results from last 7 days Lab Units 04/06/22 2142 CK TOTAL U/L 60 TROPONIN I ng/L 7 Results from last 7 days Lab Units 04/07/22 0506 SODIUM mmol/L 121* 121* POTASSIUM mmol/L 4.4 CHLORIDE mmol/L 90* BUN mg/dL 8 CREATININE mg/dL 0.61* GLUCOSE mg/dL 92 CALCIUM mg/dL 8.3* Results from last 7 days Lab Units 04/07/22 0507 WBC K/mcL 3.39* HGB g/dL 9.4* HCT % 26.9* PLT K/mcL 130* Results from last 7 days Lab Units 04/06/22 2142 TSH mcIU/mL 2.49 Results from last 7 days Lab Units 04/06/22 2142 NT PRO BNP pg/mL 2,644* [facility] for Dr Kodak Haji [phone] Associated attestation - Kodak Haji MD - 04/07/2022 2:48 PM EDT I have reviewed the documentation for our electrophysiology care provided by the COMPUTER AIDED DESIGN OPERATOR/Resident and evaluated this patient on the same day and agree with the findings as described and have made edits as appropriate. Salvador Glass is a 81 y.o. male with a history of AF, not previously on AC. Presenting with traumatic syncope. Syncope: Likely AF with slow rates and associated pauses. Normal LV on echo. Remotely normal PET stress. Would recommend continue monitoring. Pending recovery of electrolytes can consider VR MICRA during his hospitalization. It has been a pleasure to participate in the care Salvador Glass. Please do not hesitate to contact us for questions should they arise. Kodak Haji MD Electrophysiology [facility] [phone] (mobile) Cardiology Diagnostic Imaging ECG - AF with slow ventricular rates intermittent pauses. Scheduled medications amLODIPine 5 mg Oral Daily aspirin 81 mg Oral Daily bacitracin zinc Topical Daily docusate sodium 100 mg Oral Daily hydrALAZINE 50 mg Oral TID pantoprazole 40 mg Oral Daily sodium chloride (PF) 5 mL Intravenous Q8H EVELYN Continuous Infusions sodium chloride 0.9 % sodium chloride 0.9 % 75 mL/hr (04/07/22 0625) Physical Exam Blood pressure (!) 156/68, pulse (!) 39, temperature 97.7 F (36.5 C), temperature source Oral, resp. rate 16, height 6', weight 82.9 kg (182 lb 12.2 oz), SpO2 98 %. General appearance - alert, well appearing, and in no distress Neck - supple Carotid upstrokes are normal bilaterally without bruits with no JVD Lungs - clear to auscultation, no wheezes, rales or rhonchi Heart - IRRR< variable, S1 and S2 normal, no murmurs noted, Peripheral vascular - peripheral pulses normal Abdomen - soft, nontender with normal active bowel sounds Extremities -no pedal edema Skin - normal coloration and turgor Psych - appropriate mood Pertinent Labs Recent Labs 04/06/22 2142 04/07/22 0506 04/07/22 0507 WBC 3.97* -- 3.39* HGB 9.9* -- 9.4* HCT 28.9* -- 26.9* BUN 11 8 -- GLUCOSE 105* 92 -- CALCIUM 8.7 8.3* -- TSH 2.49 -- -- Lab Results Component Value Date INR 1.2 (H) 04/07/2022 PROTIME 15.2 (H) 04/07/2022 [facility] 04-07-2022 Consult note Associated Order (s): IP CONSULT TO CARE MANAGEMENT Care Management Consult Note Date: 04/07/2022 Time: 9:26 AM Patient Name: Salvador Glass Date of : 1940 Reason for Consult: Discharge Needs Discharge Plan: Discharging Transportation Plan: Discharge Plan Status: In to see patient. Patient was educated on the social service role. Patient is from home and resides alone. Patient had a fall prior to admission. Patient reports he is normally fully independent and still drives. Patient was not using medical equipment prior to admission but has it in place if needed. Patient reports his home is one-story. Patient reports no issues obtaining or affording his medications. Patient anticipates being able to return home at discharge. Therapy has been ordered. Assessment and Background Information: Living Arrangements: Alone Caregiver Identified: No Support Systems: Children, Family members Assistance Needed: Independent prior Type of Residence: Private residence Prior to Admission Home Care Services: No Patient expects to be discharged to:: Home Does the patient need discharge transport arranged?: No Current Home Equipment: Cane, Walker, Other (Comment) (grab bars) [facility] 04-07-2022 Note Formatting of this n ote might be different from the original. Attempted to call Daughter Mirian and Voicemail left for return call. [facility] 04-07-2022 Note Formatting of this n ote might be different from the original. RRN Jeni called to assess patient at bedside for bleeding from left side of head. Secure messaged Dr. Dawn to assess patient and was told Dr. Lares would come to bedside. Dr. Lares at bedside and placed orders for Trauma surgery. Was ordered to not touch the patients head wounds until Trauma evaluation. All there dressings on patients arms/hands were assessed and changed T [facility] 04-07-2022 Consult note Associated Order (s): IP CONSULT TO NEPHROLOGY NEPHROLOGY CONSULTATION NOTE [facility] Patient Name: Salvador Glass MR #: [id number] : 1940 Requesting physician: Dr Heather DONALD Reason for consult: Hyponatremia Impression/Plan: Hyponatremia: hypovolemic hyponatremia related to diuretic use (hydrochlorothiazide, Lasix, and Aldactone). Continue to hold diuretics. We will obtain Urine sodium, serum and urine osmo. Monitor Sodium every 4hours with goal sodium 126 in he next 24hrs. We will continue with IV hydration for now, if minimal improvement in his sodium levels he may require tolvaptan. No need for 3% saline at this time. Neurologic status is stable. Syncope: patient does have Hx of AFib is on Toprol in the OP setting noted to have bradycardia may have some tachy-yimi. EP has been consulted. Fall with closed head injury: management per primary team, trauma team following. Pancytompenia: management per primary team Hem/Onc has been consulted. History of Presenting Illness: Salvador Glass is a 81 y.o. male on hospital day 0 with a history of AFib, HTN, bradycardia, Leukopenia, Psoriasis who presented to the ER via EMS after experiencing a fall at home per the patient he went to clean up in the kitchen and woke up on the floor and he was bleeding he denies feeling dizzy or light headed before falling but he had been dizzy off and on for the past 3days. He puts little salt on his food, he drinks on average 2cups of coffee a day, 2 glassess of water a day and 1-2 glasses of caffeine free soda each day. He describes his cups as 8-10oz in size. History: Past Medical History: Diagnosis Date Arrhythmia A Fib Bradycardia Hypertension Leukopenia Mild anemia Psoriasis Renal failure History reviewed. No pertinent surgical history. Family History: Family History Problem Relation Age of Onset Emphysema Mother Diabetes Father Asthma Father [] Unable to obtain due to ventilated and/or neurologic status Social History Socioeconomic History Marital status: Tobacco Use Smoking status: Former Smokeless tobacco: Never Tobacco comments: quit in his 40s Vaping Use Vaping Use: Never used Substance and Sexual Activity Alcohol use: Yes Comment: occasional Drug use: Never [] Unable to obtain due to ventilated and/or neurologic status Home Medications: Outpatient Medications as of 04/07/2022 Medication Sig amLODIPine (NORVASC) 5 MG tablet Take 5 mg by mouth daily . aspirin 81 MG EC tablet Take 1 (one) tablet (81 mg total) by mouth daily . b complex vitamins capsule Take 1 capsule by mouth daily . calcium carbonate 168 mg calcium (420 mg) Chew Chew and Swallow daily as needed . carvediloL (COREG) 6.25 MG tablet Take 1 (one) tablet (6.25 mg total) by mouth 2 (two) times a day . clobetasol (TEMOVATE) 0.05 % scalp solution Apply topically daily Apply thin film onto dry scalp affected areas only. Leave in place for 15 min before lathering and rinsing. . furosemide (LASIX) 40 MG tablet Take 1 (one) tablet (40 mg total) by mouth daily . hydrALAZINE (APRESOLINE) 50 MG tablet Take 50 mg by mouth 3 (three) times a day . hydroCHLOROthiazide (HYDRODIURIL) 25 MG tablet Take 12.5 mg by mouth daily . hydrocortisone 1 % cream Apply topically 2 (two) times a day . ketoconazole (NIZORAL) 2 % cream APPLY CREAM TOPICALLY TO AFFECTED AREA TWICE DAILY pantoprazole (PROTONIX) 40 MG tablet Take 1 (one) tablet (40 mg total) by mouth daily . spironolactone (ALDACTONE) 25 MG tablet Take 1 (one) tablet (25 mg total) by mouth daily . triamcinolone (KENALOG) 0.1 % cream Apply topically 2 (two) times a day Reasons: Psoriasis of Scalp. Current Hospital Medications: Scheduled Meds: amLODIPine 5 mg Oral Daily aspirin 81 mg Oral Daily docusate sodium 100 mg Oral Daily hydrALAZINE 50 mg Oral TID pantoprazole 40 mg Oral Daily sodium chloride (PF) 5 mL Intravenous Q8H EVELYN Continuous Infusions: sodium chloride 0.9 % sodium chloride 0.9 % 75 mL/hr (04/07/22624) PRN Meds:.acetaminophen, aluminum-magnesium hydroxide-simethicone, bisacodyL, magnesium hydroxide, melatonin, ondansetron OR ondansetron, senna, Saline lock IV AND sodium chloride (PF) AND sodium chloride (PF) AND sodium chloride 0.9 %, traZODone sodium chloride 0.9 % sodium chloride 0.9 % 75 mL/hr (04/07/22624) Allergies: I have reviewed the patient's allergies. Patient has no known allergies. Review of Systems: [x] CV, Resp, GI, Neuro, and all other systems reviewed and negative other than listed in HPI. [] Unable to obtain due to intubation and/or neurologic status. Objective Findings: Vitals:BP (!) 149/73 Pulse (!) 55 Temp 97.6 F (36.4 C) (Oral) Resp 16 Ht 6' SpO2 98% Intake/Output last 3 shifts: Intake/Output Summary (Last 24 hours) at 04/07/2022 0714 Last data filed at 04/07/2022 0202 Gross per 24 hour Intake 499.98 ml Output -- Net 499.98 ml I/O last 3 completed shifts: In: 500 [IV Piggyback:500] Out: - Physical Examination: General: Age appropriate, NAD. HEENT: Normocephalic, Left eye with ecchymosis, and edema noted. Coban wrap around head with dried blood noted in his hair. Neck: No JVD. Heart: Regular, no murmur, no rub/gallop. Lungs: Clear to ascultation, no rales/wheezing/rhonchi. Good chest wall excursion. Abdomen: Soft, nontender, no supra-public fullness or tenderness. Extremities: No clubbing/cyanosis, no edema. Skin: Warm, dry, normal turgor, no rash, no bruise, no petichiae. B/l lower arms with kerlex dressing dry and intact, Neuro: No myoclonus or tremor. Psych: Normal affect. : [] Win present [x] Win not present Results/Medications Reviewed: 04/07/22 7:14 AM: Laboratory, Microbiology, Pathology, Radiology, Cardiology, Medications and Transcriptions Laboratory: Results from last 7 days Lab Units 04/07/22 0507 04/06/22 2142 WBC K/mcL 3.39* 3.97* HGB g/dL 9.4* 9.9* HCT % 26.9* 28.9* PLT K/mcL 130* 123* Results from last 7 days Lab Units 04/07/22 0506 04/06/22 2142 SODIUM mmol/L 121* 119* POTASSIUM mmol/L -- 4.0 CHLORIDE mmol/L -- 87* BICARB mmol/L -- 20* BUN mg/dL -- 11 CREATININE mg/dL -- 0.87 EGFR mL/min/1.73 m2 -- 88 GLUCOSE mg/dL -- 105* CALCIUM mg/dL -- 8.7 MAGNESIUM mg/dL 1.7 1.8 Urinalysis Results from last 7 days Lab Units 04/07/22 0039 COLOR, UR Yellow CLARITY, UR Clear SPEC GRAV 1.013 PH, UR 5.5 GLUCOSE, UR mg/dL Negative KETONES, UR mg/dL Trace* BILIRUBIN, UR Negative UROBILINOGEN, UR mg/dL <2.0 BLOOD, UR Negative NITRITE, UR Negative LEUK BOLIVAR, UR Negative MUCUS, UR /lpf Rare WBC, UR /hpf <1 BACTERIA, UR /hpf None Seen HYALINE CASTS /lpf 0-2 CREATININE UR mg/dL 53.1 Comments: Thank you for allowing us to participate in the care of this patient. We will continue to follow. Please call if questions or concerns arise. [facility] Work Phone: 04-07-2022 Note Formatting of this n ote might be different from the original. ATTEMPTED TO RECEIVE REPORT AT THIS TIME. RN DID NOT ANSWER, WILL ATTEMPT AGAIN [facility] 04-07-2022 Emergency department Note ATTEMPTED TO CALL REPORT AT THIS TIME. ALDEN SPANN INFORMED THIS NURSE SHE WILL RETURN CALL. [facility] 04-07-2022 Emergency department Note ATTEMPTED TO CALL REPORT AT THIS TIME. ALDEN SPANN INFORMED THIS NURSE SHE WILL RETURN CALL. DR. VASQUEZ AT [facility]. PLACED DRESSING WITH 2 RN ASSIST D/T HEAD WOUND CONTINUE TO DRAIN RED DRAINAGE. PT TOLERATED WELL. REMOVED C-COLLAR PRIOR TO DRESSING. PT RESTING AT THIS TIME. BREATHS EVEN AND UNLABORED. CALL LIGHT IN REACH. PT URINE SPECIMEN COLLECTED VIA STRAIGHT CATH AT THIS TIME. PT TOLERATED WELL. PATIENTS FACE WASHED AND OPEN AREAS CLEANED WITH STERILE WATER, TSERING APPLIED AND DRESSING WITH KERLIX WRAPPED AROUND HEAD AT THIS TIME. PT TOLERATED WELL. CALL LIGHT IN REACH. Associated Order(s): EKG 12-lead [facility] ATTENDING NOTE: NAME: Salvador Glass CSN: [id number] 81 y.o. PCP: Walter Munguia MD History: Chief Complaint: Fall HPI: The history was obtained from the patient. Salvador is a 81 y.o. male with a history of A. fib and bradycardia who presents by EMS from home with a chief complaint of Fall. He states that he fell in the kitchen when he was cleaning up after dinner around 7 PM. He does not know what made him fall. He does not recall having a loss of consciousness. He does not recall any dizziness. He was unable to get up. He normally walks with no assistance. He had a cell phone in his pocket, but he had trouble dialing it. He did hit his head. He takes baby aspirin daily. Denies the use of other anticoagulants. Complains of skin tears to his left cheek, left forehead, right elbow, right hand, left forearm, and left hand. PMHx: Past Medical History: Diagnosis Date Arrhythmia A Fib Bradycardia Hypertension Leukopenia Mild anemia Psoriasis Renal failure PMSx: History reviewed. No pertinent surgical history. FAM. Hx: Family History Problem Relation Age of Onset Emphysema Mother Diabetes Father Asthma Father SOC. Hx: Social History Socioeconomic History Marital status: Tobacco Use Smoking status: Former Smokeless tobacco: Never Tobacco comments: quit in his 40s Vaping Use Vaping Use: Never used Substance and Sexual Activity Alcohol use: Yes Comment: occasional Drug use: Never MEDs: Previous Medications Medication Sig amLODIPine (NORVASC) 5 MG tablet Take 5 mg by mouth daily . b complex vitamins capsule Take 1 capsule by mouth daily . calcium carbonate 168 mg calcium (420 mg) Chew Chew and Swallow daily as needed . carvediloL (COREG) 6.25 MG tablet Take 1 (one) tablet (6.25 mg total) by mouth 2 (two) times a day . clobetasol (TEMOVATE) 0.05 % scalp solution Apply topically daily Apply thin film onto dry scalp affected areas only. Leave in place for 15 min before lathering and rinsing. . furosemide (LASIX) 40 MG tablet Take 1 (one) tablet (40 mg total) by mouth daily . hydrALAZINE (APRESOLINE) 50 MG tablet Take 50 mg by mouth 3 (three) times a day . hydroCHLOROthiazide (HYDRODIURIL) 25 MG tablet Take 12.5 mg by mouth daily . hydrocortisone 1 % cream Apply topically 2 (two) times a day . ketoconazole (NIZORAL) 2 % cream APPLY CREAM TOPICALLY TO AFFECTED AREA TWICE DAILY pantoprazole (PROTONIX) 40 MG tablet Take 1 (one) tablet (40 mg total) by mouth daily . spironolactone (ALDACTONE) 25 MG tablet Take 1 (one) tablet (25 mg total) by mouth daily . triamcinolone (KENALOG) 0.1 % cream Apply topically 2 (two) times a day Reasons: Psoriasis of Scalp. ALL: No Known Allergies ROS: Review of Systems Constitutional: Negative for chills, fever and unexpected weight change. HENT: Negative for ear pain, rhinorrhea and sore throat. Eyes: Negative for pain, redness and visual disturbance. Respiratory: Negative for cough, shortness of breath and wheezing. Cardiovascular: Negative for chest pain, palpitations and leg swelling. Gastrointestinal: Negative for abdominal pain, constipation, diarrhea, nausea and vomiting. Genitourinary: Negative for dysuria, hematuria and urgency. Musculoskeletal: Negative for arthralgias and joint swelling. Skin: Positive for wound. Negative for rash. Neurological: Negative for dizziness, seizures and headaches. All other systems reviewed and are negative. Positives and pertinent negatives as per HPI. All other systems were reviewed and are negative. Physical Exam: Patient Vitals for the past 24 hrs: BP Temp Pulse Resp SpO2 Height 04/07/22 0230 (!) 132/59 -- (!) 46 (!) 19 98 % -- 04/07/22 0215 -- -- (!) 50 16 98 % -- 04/07/22 0200 (!) 130/59 -- (!) 56 12 94 % -- 04/07/22 0145 -- -- (!) 43 15 98 % -- 04/07/22 0130 (!) 133/52 -- (!) 48 13 96 % -- 04/07/22 0115 -- -- (!) 51 (!) 10 99 % -- 04/07/22 0100 (!) 123/56 -- (!) 52 13 96 % -- 04/07/22 0045 -- -- (!) 52 17 98 % -- 04/07/22 0000 (!) 124/57 -- (!) 51 13 96 % -- 04/06/22 2345 -- -- (!) 47 (!) 11 98 % -- 04/06/22 2330 123/60 -- (!) 50 12 90 % -- 04/06/22 2215 -- -- (!) 44 (!) 11 99 % -- 04/06/22 2200 133/60 -- (!) 47 14 98 % -- 04/06/222144 -- -- (!) 41 12 99 % -- 04/06/220 (!) 122/57 -- -- -- -- -- 04/06/222136 -- -- -- -- 98 % -- 04/06/222124 -- 97.4 F (36.3 C) (!) 55 18 98 % 6' Physical Exam Vitals reviewed. Constitutional: Appearance: Normal appearance. He is well-developed. Interventions: Cervical collar in place. HENT: Head: Normocephalic. Comments: Left periorbital swelling and ecchymosis. Superficial skin tear 1.5 cm left forehead without active bleeding. Superficial skin tear to simulators left cheek without active bleeding. Right Ear: Ear canal and external ear normal. No hemotympanum. Left Ear: Ear canal and external ear normal. No hemotympanum. Nose: No nasal deformity or septal deviation. Mouth/Throat: Pharynx: Oropharynx is clear. Comments: Airway patent Eyes: Extraocular Movements: Extraocular movements intact. Pupils: Pupils are equal, round, and reactive to light. Neck: Vascular: No JVD. Trachea: No tracheal deviation. Cardiovascular: Rate and Rhythm: Normal rate and regular rhythm. Heart sounds: Normal heart sounds. No murmur heard. No friction rub. No gallop. Pulmonary: Effort: Pulmonary effort is normal. No respiratory distress. Breath sounds: Normal breath sounds. Chest: Chest wall: No tenderness. Comments: Bilateral upper chest ecchymoses noted Abdominal: General: Bowel sounds are normal. Palpations: Abdomen is soft. Abdomen is not rigid. Tenderness: There is no abdominal tenderness. There is no guarding or rebound. Comments: No ecchymosis Musculoskeletal: General: No tenderness or deformity. Cervical back: Full passive range of motion without pain. No deformity, tenderness or bony tenderness. No spinous process tenderness. Thoracic back: No deformity or bony tenderness. Lumbar back: No deformity or bony tenderness. Right lower leg: No tenderness. 2+ Pitting Edema present. Left lower leg: No tenderness. 2+ Pitting Edema present. Skin: General: Skin is warm and dry. Capillary Refill: Capillary refill takes less than 2 seconds. Comments: 3 x 4 cm stellate flap superficial skin tear right elbow without active bleeding. 2 cm superficial skin tear without active bleeding left forearm. 2 cm superficial skin tear dorsum of left hand without active bleeding. 1 cm superficial skin tear dorsum of right hand without active bleeding. Neurological: Mental Status: He is alert and oriented to person, place, and time. GCS: GCS eye subscore is 4. GCS verbal subscore is 5. GCS motor subscore is 6. Sensory: Sensation is intact. Motor: Motor function is intact. Coordination: Coordination is intact. Deep Tendon Reflexes: Reflexes normal. Laboratory & Radiological Imaging (if done): Labs Reviewed BASIC METABOLIC PANEL - Abnormal; Notable for the following components: Result Value Sodium 119 (*) Chloride 87 (*) Bicarbonate 20 (*) Glucose 105 (*) All other components within normal limits Narrative: [facility] Laboratory Services has implemented the eGFR calculation approach that does not have a coefficient for race that conforms to the NKF-ASN Task Force Recommendations. URINALYSIS - Abnormal; Notable for the following components: Ketones, Urine Trace (*) All other components within normal limits Narrative: Microscopic examination is performed on all urinalysis samples and only positive findings are reported. The test for blood on the chemical analytic portion of urinalysis may also be positive due to hemoglobinuria and myoglobinuria and if red blood cells are present they are quantified by microscopic examination. NT PRO BNP - Abnormal; Notable for the following components: NT-Pro BNP 2,644 (*) All other components within normal limits Narrative: Pride Study Cut-offs Rule In: < /= 50 Years >450 pg/mL 51 Years - 75 Years >900 pg/mL 76 Years - 99 Years >1800 pg/mL Rule Out: All patients <300 pg/mL CBC WITH AUTO DIFFERENTIAL - Abnormal; Notable for the following components: WBC 3.97 (*) RBC 3.17 (*) Hemoglobin 9.9 (*) Hematocrit 28.9 (*) Platelets 123 (*) Lymphocytes Abs 0.36 (*) All other components within normal limits MAGNESIUM LEVEL - Normal CPK - Normal CBC AND DIFFERENTIAL Narrative: The following orders were created for panel order CBC and Differential. Procedure Abnormality Status --------- ------ CBC Auto Differential[[id number]] Abnormal Final result Please view results for these tests on the individual orders. TROPONIN XR Chest 1 View Final Result No acute findings. Workstation ID: [id number] CT Maxillofacial Without Contrast Final Result 1. No evidence for an acute maxillofacial fracture. 2. Moderate left periorbital soft tissue swelling visualized with mild soft tissue swelling visualized tracking along the left maxillary region. 3. Mild bilateral mastoid effusions. Workstation ID: [id number] CT Head Or Brain Without Contrast Final Result Addendum (preliminary) 1 of ADDENDUM: There are mild bilateral mastoid air cell effusions which could indicate mild mastoiditis. Correlate clinically. Workstation ID: [id number] Final Chronic microvascular ischemic change without acute intracranial abnormality. Workstation ID: [id number] CT Cervical Spine Without Contrast 3D Final Result [id number] diffuse disc disease without fracture. Workstation ID: [id number] Procedures: EKG 12-lead Date/Time: 04/06/2022 10:27 PM Performed by: Deya Vasquez MD Authorized by: Deya Vasquez MD Interpreted by ED attending physician Rhythm: atrial fibrillation BPM: 45 Conduction: complete RBBB QRS axis: normal Clinical impression comment: Atrial fibrillation with slow ventricular response and right bundle branch block ED Course / Medical Decision Making: Basic metabolic panel demonstrates hyponatremia with a sodium of 119. Urinalysis is negative for infection. BNP is elevated at 2644. White blood cell count, hemoglobin, and platelets are all low. Magnesium is normal. CPK is normal. Troponin is negative. Chest x-ray is normal. CT maxillofacial is negative for acute bony injury. CT brain is negative for acute intracranial injury. CT cervical spine is negative for acute bony injury. EKG demonstrates atrial fibrillation with slow ventricular response and right bundle branch block. Cervical collar was removed in the emergency department. I applied a Surgifoam pressure dressing to the left frontal skin tear. Skin tears of the extremities were cleaned and dressed by the nurse. I spoke with the hospitalist for admission. Clinical Impression: 1. Atrial fibrillation with slow ventricular response (HCC) 2. Hyponatremia 3. Pancytopenia (HCC) 4. Closed head injury, initial encounter 5. Multiple skin tears Disposition: ED Disposition ED Disposition Hospitalize Condition -- Comment Recommended Level of Care: Med Surg Phone call required?: No Deya Vasquez MD ED Attending Physician [facility] (Please note that portions of this note have been completed with a voice recognition software. Efforts were made to correct any errors, but occasionally words are mis-transcribed.) Deya Vasquez MD 04/07/22 0300 PT NOTED TO HAVE A LARGE BM. LIBRADO CARE COMPLETED, MAT SYSTEM PLACED UNDER PT AND WARM BLANKETS PROVIDED. PT INTO ER BY EMS D/T FALL AT HOME. PT STATES HE LIVES ALONE AND JUST ATE DINNER. PT STATES HE REMEMBERS FALLING, NO KNOWN TIME UNCONSCIOUSNESS. PT CALLED 911 HIMSELF AND BROUGHT TO ER. PT HAS LAC NOTED OVER LEFT BROW AT THIS TIME ALSO NOTED ST TO RIGHT ELBOW AND LEFT HAND AND LEFT FA AND HAND. Bed: 20 Expected date: Expected time: Means of arrival: Comments: VIVI documented in this encounter [facility] 04-07-2022 History and physical note [facility] [place] HISTORY AND PHYSICAL Patient Name: Salvador Glass : 1940 MR #: [id number] Admit Date: 04/06/2022 Physicians: Walter Munguia MD (Family); No ref. provider found (Referring) Salvador Glass is a 81 y.o. male patient of Walter Munguia MD with history of atrial fibrillation, HTN, leukopenia, who presented with fall. Hyponatremia: Sodium 119 (no baseline available) Hold diuretics NS @ 75 mL/hr Serum osmolality Serial sodium levels Nephrology consult Pancytopenia: WBC 3.97 Hgb 9.9 Platelets 123 Heme/onc consult Check iron studies, B12, folate, reticulocyte count, hepatic panel Fall: Closed head injury: CT head, neck, maxillofacial w/o contrast is non-acute except moderate left periorbital soft tissue swelling with mild soft tissue swelling visualized tracking along the left maxillary region CXR non-acute PT/OT Care management Essential HTN: Hold diuretics. Continue Norvasc and hydralazine GERD: Pantoprazole Chronic atrial fibrillation w/ slow ventricular response: Unsure if this could have contributed to fall Cardiology consult Hold Coreg Cardiac monitoring Admitted From: home Medication Reconciliation: Verified Code Status: Full Code - Unverified Quality Measures DVT Prophylaxis: lovenox Win Catheter: absent Risk variables present on admission:Cardiac Arrhythmia and Hyponatremia. Please see assessment and plan for further details. Chief Complaint Fall History of Present Illness Salvador Glass is a 81 y.o. male patient of Walter Munguia MD with history of atrial fibrillation, HTN, leukopenia, who presented with fall. He fell while cleaning up after dinner around 7 PM. He isn't sure how or why he fell. He does not recall losing consciousness or dizziness. He was unable to get up. He called for assistance after being on the ground for a couple hours. He takes ASA daily, but no other anticoagulants. No fever, chills, N/V, SOB, chest pain, leg swelling, cough, palpitations, abdominal pain, dysuria, hematuria, diarrhea. He has some generalized aches and several skin tears. Past Medical History Past Medical History: Diagnosis Date Arrhythmia A Fib Bradycardia Hypertension Leukopenia Mild anemia Psoriasis Renal failure Past Surgical History History reviewed. No pertinent surgical history. Family History Family History Problem Relation Age of Onset Emphysema Mother Diabetes Father Asthma Father Social History Social History Tobacco Use Smoking Status Former Smokeless Tobacco Never Tobacco Comments quit in his 40s Social History Substance and Sexual Activity Alcohol Use Yes Comment: occasional Social History Substance and Sexual Activity Drug Use Never Allergy Information I have reviewed the patient's allergies. Patient has no known allergies. Home Medications Home medications were reviewed. Review Of Systems All systems have been reviewed and are negative except as noted in HPI or below Physical Examination BP (!) 132/59 Pulse (!) 46 Temp 97.4 F (36.3 C) Resp (!) 19 Ht 6' SpO2 98% General Appearance: alert; well appearing; in no acute distress HEENT: Eyes- EOMI, sclera anicteric; Ears- hearing intact; Nose- no nasal discharge; Throat- mucous membranes moist Cardiovascular: slow rate and irregular rhythm; normal S1, S2; no murmurs, rubs, clicks or gallops; no peripheral edema Respiratory: lungs clear to auscultation; without wheezes, rales or rhonchi; on room air Abdomen: soft, non-tender, non-distended; positive bowel sounds Neurological: oriented x 3; normal speech; no focal findings or movement disorder noted Musculoskeletal: no significant deformity or tenderness to palpation Skin: skin tears on left cheek, left forehead, right elbow, right hand, left forearm and left hand. No obvious rashes, lesions or skin breakdown Psych: normal mood and affect Laboratory and Additional Data Reviewed Laboratory 04/07/22 3:35 AM Microbiology 04/07/22 3:35 AM Radiology 04/07/22 3:35 AM Cardiology 04/07/22 3:35 AM Medications 04/07/22 3:35 AM Transcriptions 04/07/22 3:35 AM [facility] 04-07-2022 History and physical note [facility] [place] HISTORY AND PHYSICAL Patient Name: Salvador Glass : 1940 MR #: [id number] Admit Date: 04/06/2022 Physicians: Walter Munguia MD (Family); No ref. provider found (Referring) Salvador Glass is a 81 y.o. male patient of Walter Munguia MD with history of atrial fibrillation, HTN, leukopenia, who presented with fall. Hyponatremia: Sodium 119 (no baseline available) Hold diuretics NS @ 75 mL/hr Serum osmolality Serial sodium levels Nephrology consult Pancytopenia: WBC 3.97 Hgb 9.9 Platelets 123 Heme/onc consult Check iron studies, B12, folate, reticulocyte count, hepatic panel Fall: Closed head injury: CT head, neck, maxillofacial w/o contrast is non-acute except moderate left periorbital soft tissue swelling with mild soft tissue swelling visualized tracking along the left maxillary region CXR non-acute PT/OT Care management Essential HTN: Hold diuretics. Continue Norvasc and hydralazine GERD: Pantoprazole Chronic atrial fibrillation w/ slow ventricular response: Unsure if this could have contributed to fall Cardiology consult Hold Coreg Cardiac monitoring Admitted From: home Medication Reconciliation: Verified Code Status: Full Code - Unverified Quality Measures DVT Prophylaxis: lovenox Win Catheter: absent Risk variables present on admission:Cardiac Arrhythmia and Hyponatremia. Please see assessment and plan for further details. Chief Complaint Fall History of Present Illness Salvador Glass is a 81 y.o. male patient of Walter Munguia MD with history of atrial fibrillation, HTN, leukopenia, who presented with fall. He fell while cleaning up after dinner around 7 PM. He isn't sure how or why he fell. He does not recall losing consciousness or dizziness. He was unable to get up. He called for assistance after being on the ground for a couple hours. He takes ASA daily, but no other anticoagulants. No fever, chills, N/V, SOB, chest pain, leg swelling, cough, palpitations, abdominal pain, dysuria, hematuria, diarrhea. He has some generalized aches and several skin tears. Past Medical History Past Medical History: Diagnosis Date Arrhythmia A Fib Bradycardia Hypertension Leukopenia Mild anemia Psoriasis Renal failure Past Surgical History History reviewed. No pertinent surgical history. Family History Family History Problem Relation Age of Onset Emphysema Mother Diabetes Father Asthma Father Social History Social History Tobacco Use Smoking Status Former Smokeless Tobacco Never Tobacco Comments quit in his 40s Social History Substance and Sexual Activity Alcohol Use Yes Comment: occasional Social History Substance and Sexual Activity Drug Use Never Allergy Information I have reviewed the patient's allergies. Patient has no known allergies. Home Medications Home medications were reviewed. Review Of Systems All systems have been reviewed and are negative except as noted in HPI or below Physical Examination BP (!) 132/59 Pulse (!) 46 Temp 97.4 F (36.3 C) Resp (!) 19 Ht 6' SpO2 98% General Appearance: alert; well appearing; in no acute distress HEENT: Eyes- EOMI, sclera anicteric; Ears- hearing intact; Nose- no nasal discharge; Throat- mucous membranes moist Cardiovascular: slow rate and irregular rhythm; normal S1, S2; no murmurs, rubs, clicks or gallops; no peripheral edema Respiratory: lungs clear to auscultation; without wheezes, rales or rhonchi; on room air Abdomen: soft, non-tender, non-distended; positive bowel sounds Neurological: oriented x 3; normal speech; no focal findings or movement disorder noted Musculoskeletal: no significant deformity or tenderness to palpation Skin: skin tears on left cheek, left forehead, right elbow, right hand, left forearm and left hand. No obvious rashes, lesions or skin breakdown Psych: normal mood and affect Laboratory and Additional Data Reviewed Laboratory 04/07/22 3:35 AM Microbiology 04/07/22 3:35 AM Radiology 04/07/22 3:35 AM Cardiology 04/07/22 3:35 AM Medications 04/07/22 3:35 AM Transcriptions 04/07/22 3:35 AM documented in this encounter [facility] 04-07-[address] VASQUEZ AT [facility]. PLACED DRESSING WITH 2 RN ASSIST D/T HEAD WOUND CONTINUE TO DRAIN RED DRAINAGE. PT TOLERATED WELL. REMOVED C-COLLAR PRIOR TO DRESSING. PT RESTING AT THIS TIME. BREATHS EVEN AND UNLABORED. CALL LIGHT IN REACH. [facility] 04-07-2022 Emergency department Note PT URINE SPECIMEN COLLECTED VIA STRAIGHT CATH AT THIS TIME. PT TOLERATED WELL. [facility] 04-07-2022 Emergency department Note PATIENTS FACE WASHED AND OPEN AREAS CLEANED WITH STERILE WATER, TSERING APPLIED AND DRESSING WITH KERLIX WRAPPED AROUND HEAD AT THIS TIME. PT TOLERATED WELL. CALL LIGHT IN REACH. [facility] 04-06-2022 Physician Emergency department Note Associated Order(s): EKG 12-lead [facility] ATTENDING NOTE: NAME: Salvador Glass CSN: [id number] 81 y.o. PCP: Walter Munguia MD History: Chief Complaint: Fall HPI: The history was obtained from the patient. Salvador is a 81 y.o. male with a history of A. fib and bradycardia who presents by EMS from home with a chief complaint of Fall. He states that he fell in the kitchen when he was cleaning up after dinner around 7 PM. He does not know what made him fall. He does not recall having a loss of consciousness. He does not recall any dizziness. He was unable to get up. He normally walks with no assistance. He had a cell phone in his pocket, but he had trouble dialing it. He did hit his head. He takes baby aspirin daily. Denies the use of other anticoagulants. Complains of skin tears to his left cheek, left forehead, right elbow, right hand, left forearm, and left hand. PMHx: Past Medical History: Diagnosis Date Arrhythmia A Fib Bradycardia Hypertension Leukopenia Mild anemia Psoriasis Renal failure PMSx: History reviewed. No pertinent surgical history. FAM. Hx: Family History Problem Relation Age of Onset Emphysema Mother Diabetes Father Asthma Father SOC. Hx: Social History Socioeconomic History Marital status: Tobacco Use Smoking status: Former Smokeless tobacco: Never Tobacco comments: quit in his 40s Vaping Use Vaping Use: Never used Substance and Sexual Activity Alcohol use: Yes Comment: occasional Drug use: Never MEDs: Previous Medications Medication Sig amLODIPine (NORVASC) 5 MG tablet Take 5 mg by mouth daily . b complex vitamins capsule Take 1 capsule by mouth daily . calcium carbonate 168 mg calcium (420 mg) Chew Chew and Swallow daily as needed . carvediloL (COREG) 6.25 MG tablet Take 1 (one) tablet (6.25 mg total) by mouth 2 (two) times a day . clobetasol (TEMOVATE) 0.05 % scalp solution Apply topically daily Apply thin film onto dry scalp affected areas only. Leave in place for 15 min before lathering and rinsing. . furosemide (LASIX) 40 MG tablet Take 1 (one) tablet (40 mg total) by mouth daily . hydrALAZINE (APRESOLINE) 50 MG tablet Take 50 mg by mouth 3 (three) times a day . hydroCHLOROthiazide (HYDRODIURIL) 25 MG tablet Take 12.5 mg by mouth daily . hydrocortisone 1 % cream Apply topically 2 (two) times a day . ketoconazole (NIZORAL) 2 % cream APPLY CREAM TOPICALLY TO AFFECTED AREA TWICE DAILY pantoprazole (PROTONIX) 40 MG tablet Take 1 (one) tablet (40 mg total) by mouth daily . spironolactone (ALDACTONE) 25 MG tablet Take 1 (one) tablet (25 mg total) by mouth daily . triamcinolone (KENALOG) 0.1 % cream Apply topically 2 (two) times a day Reasons: Psoriasis of Scalp. ALL: No Known Allergies ROS: Review of Systems Constitutional: Negative for chills, fever and unexpected weight change. HENT: Negative for ear pain, rhinorrhea and sore throat. Eyes: Negative for pain, redness and visual disturbance. Respiratory: Negative for cough, shortness of breath and wheezing. Cardiovascular: Negative for chest pain, palpitations and leg swelling. Gastrointestinal: Negative for abdominal pain, constipation, diarrhea, nausea and vomiting. Genitourinary: Negative for dysuria, hematuria and urgency. Musculoskeletal: Negative for arthralgias and joint swelling. Skin: Positive for wound. Negative for rash. Neurological: Negative for dizziness, seizures and headaches. All other systems reviewed and are negative. Positives and pertinent negatives as per HPI. All other systems were reviewed and are negative. Physical Exam: Patient Vitals for the past 24 hrs: BP Temp Pulse Resp SpO2 Height 04/07/22 0230 (!) 132/59 -- (!) 46 (!) 19 98 % -- 04/07/22 0215 -- -- (!) 50 16 98 % -- 04/07/22 0200 (!) 130/59 -- (!) 56 12 94 % -- 04/07/22 0145 -- -- (!) 43 15 98 % -- 04/07/22 0130 (!) 133/52 -- (!) 48 13 96 % -- 04/07/22 0115 -- -- (!) 51 (!) 10 99 % -- 04/07/22 0100 (!) 123/56 -- (!) 52 13 96 % -- 04/07/22 0045 -- -- (!) 52 17 98 % -- 04/07/22 0000 (!) 124/57 -- (!) 51 13 96 % -- 04/06/22 2345 -- -- (!) 47 (!) 11 98 % -- 04/06/22 2330 123/60 -- (!) 50 12 90 % -- 04/06/22 2215 -- -- (!) 44 (!) 11 99 % -- 04/06/22 2200 133/60 -- (!) 47 14 98 % -- 04/06/222144 -- -- (!) 41 12 99 % -- 04/06/22 2140 (!) 122/57 -- -- -- -- -- 04/06/222136 -- -- -- -- 98 % -- 04/06/222124 -- 97.4 F (36.3 C) (!) 55 18 98 % 6' Physical Exam Vitals reviewed. Constitutional: Appearance: Normal appearance. He is well-developed. Interventions: Cervical collar in place. HENT: Head: Normocephalic. Comments: Left periorbital swelling and ecchymosis. Superficial skin tear 1.5 cm left forehead without active bleeding. Superficial skin tear to simulators left cheek without active bleeding. Right Ear: Ear canal and external ear normal. No hemotympanum. Left Ear: Ear canal and external ear normal. No hemotympanum. Nose: No nasal deformity or septal deviation. Mouth/Throat: Pharynx: Oropharynx is clear. Comments: Airway patent Eyes: Extraocular Movements: Extraocular movements intact. Pupils: Pupils are equal, round, and reactive to light. Neck: Vascular: No JVD. Trachea: No tracheal deviation. Cardiovascular: Rate and Rhythm: Normal rate and regular rhythm. Heart sounds: Normal heart sounds. No murmur heard. No friction rub. No gallop. Pulmonary: Effort: Pulmonary effort is normal. No respiratory distress. Breath sounds: Normal breath sounds. Chest: Chest wall: No tenderness. Comments: Bilateral upper chest ecchymoses noted Abdominal: General: Bowel sounds are normal. Palpations: Abdomen is soft. Abdomen is not rigid. Tenderness: There is no abdominal tenderness. There is no guarding or rebound. Comments: No ecchymosis Musculoskeletal: General: No tenderness or deformity. Cervical back: Full passive range of motion without pain. No deformity, tenderness or bony tenderness. No spinous process tenderness. Thoracic back: No deformity or bony tenderness. Lumbar back: No deformity or bony tenderness. Right lower leg: No tenderness. 2+ Pitting Edema present. Left lower leg: No tenderness. 2+ Pitting Edema present. Skin: General: Skin is warm and dry. Capillary Refill: Capillary refill takes less than 2 seconds. Comments: 3 x 4 cm stellate flap superficial skin tear right elbow without active bleeding. 2 cm superficial skin tear without active bleeding left forearm. 2 cm superficial skin tear dorsum of left hand without active bleeding. 1 cm superficial skin tear dorsum of right hand without active bleeding. Neurological: Mental Status: He is alert and oriented to person, place, and time. GCS: GCS eye subscore is 4. GCS verbal subscore is 5. GCS motor subscore is 6. Sensory: Sensation is intact. Motor: Motor function is intact. Coordination: Coordination is intact. Deep Tendon Reflexes: Reflexes normal. Laboratory & Radiological Imaging (if done): Labs Reviewed BASIC METABOLIC PANEL - Abnormal; Notable for the following components: Result Value Sodium 119 (*) Chloride 87 (*) Bicarbonate 20 (*) Glucose 105 (*) All other components within normal limits Narrative: [facility] Services has implemented the eGFR calculation approach that does not have a coefficient for race that conforms to the NKF-ASN Task Force Recommendations. URINALYSIS - Abnormal; Notable for the following components: Ketones, Urine Trace (*) All other components within normal limits Narrative: Microscopic examination is performed on all urinalysis samples and only positive findings are reported. The test for blood on the chemical analytic portion of urinalysis may also be positive due to hemoglobinuria and myoglobinuria and if red blood cells are present they are quantified by microscopic examination. NT PRO BNP - Abnormal; Notable for the following components: NT-Pro BNP 2,644 (*) All other components within normal limits Narrative: Pride Study Cut-offs Rule In: < /= 50 Years >450 pg/mL 51 Years - 75 Years >900 pg/mL 76 Years - 99 Years >1800 pg/mL Rule Out: All patients <300 pg/mL CBC WITH AUTO DIFFERENTIAL - Abnormal; Notable for the following components: WBC 3.97 (*) RBC 3.17 (*) Hemoglobin 9.9 (*) Hematocrit 28.9 (*) Platelets 123 (*) Lymphocytes Abs 0.36 (*) All other components within normal limits MAGNESIUM LEVEL - Normal CPK - Normal CBC AND DIFFERENTIAL Narrative: The following orders were created for panel order CBC and Differential. Procedure Abnormality Status --------- ------ CBC Auto Differential[[id number]] Abnormal Final result Please view results for these tests on the individual orders. TROPONIN XR Chest 1 View Final Result No acute findings. Workstation ID: [id number] CT Maxillofacial Without Contrast Final Result 1. No evidence for an acute maxillofacial fracture. 2. Moderate left periorbital soft tissue swelling visualized with mild soft tissue swelling visualized tracking along the left maxillary region. 3. Mild bilateral mastoid effusions. Workstation ID: [id number] CT Head Or Brain Without Contrast Final Result Addendum (preliminary) 1 of ADDENDUM: There are mild bilateral mastoid air cell effusions which could indicate mild mastoiditis. Correlate clinically. Workstation ID: [id number] Final Chronic microvascular ischemic change without acute intracranial abnormality. Workstation ID: [id number] CT Cervical Spine Without Contrast 3D Final Result [id number] diffuse disc disease without fracture. Workstation ID: [id number] Procedures: EKG 12-lead Date/Time: 04/06/2022 10:27 PM Performed by: Deya Vasquez MD Authorized by: Deya Vasquez MD Interpreted by ED attending physician Rhythm: atrial fibrillation BPM: 45 Conduction: complete RBBB QRS axis: normal Clinical impression comment: Atrial fibrillation with slow ventricular response and right bundle branch block ED Course / Medical Decision Making: Basic metabolic panel demonstrates hyponatremia with a sodium of 119. Urinalysis is negative for infection. BNP is elevated at 2644. White blood cell count, hemoglobin, and platelets are all low. Magnesium is normal. CPK is normal. Troponin is negative. Chest x-ray is normal. CT maxillofacial is negative for acute bony injury. CT brain is negative for acute intracranial injury. CT cervical spine is negative for acute bony injury. EKG demonstrates atrial fibrillation with slow ventricular response and right bundle branch block. Cervical collar was removed in the emergency department. I applied a Surgifoam pressure dressing to the left frontal skin tear. Skin tears of the extremities were cleaned and dressed by the nurse. I spoke with the hospitalist for admission. Clinical Impression: 1. Atrial fibrillation with slow ventricular response (HCC) 2. Hyponatremia 3. Pancytopenia (HCC) 4. Closed head injury, initial encounter 5. Multiple skin tears Disposition: ED Disposition ED Disposition Hospitalize Condition -- Comment Recommended Level of Care: Med Surg Phone call required?: No Deya Vasquez MD ED Attending Physician [facility] (Please note that portions of this note have been completed with a voice recognition software. Efforts were made to correct any errors, but occasionally words are mis-transcribed.) Deya Vasquez MD 04/07/22 0300 [facility] Work Phone: 04-06-2022 Emergency department Note PT NOTED TO HAVE A LARGE BM. LIBRADO CARE COMPLETED, MAT SYSTEM PLACED UNDER PT AND WARM BLANKETS PROVIDED. [facility] 04-06-2022 Emergency department Triage note PT INTO ER BY EMS D/T FALL AT HOME. PT STATES HE LIVES ALONE AND JUST ATE DINNER. PT STATES HE REMEMBERS FALLING, NO KNOWN TIME UNCONSCIOUSNESS. PT CALLED 911 HIMSELF AND BROUGHT TO ER. PT HAS LAC NOTED OVER LEFT BROW AT THIS TIME ALSO NOTED ST TO RIGHT ELBOW AND LEFT HAND AND LEFT FA AND HAND. [facility] 04-06-2022 Emergency department Note Bed: 20 Expected date: Expected time: Means of arrival: Comments: VIVI [facility] 01-12-2022 Instructions Tiffany Triana OD - 01/12/2022 11:34 AM EDT ASSESSMENT/PLAN: 1. 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 Recommended yearly exams. documented in this encounter [facility] 01-12-2022 History of Present illness Narrative ASSESSMENT/PLAN: 1. 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 Recommended yearly exams. Tiffany Triana, VELMA I have confirmed and edited as necessary the relevant ophthalmic history, ROS, and the neuro exam findings as obtained by others. I have seen and examined this patient. documented in this encounter [facility] 07-10-2021 History of Present illness Narrative Images from the original note were not included. [facility] [address] [place] [address] Name: Salvador Glass : 1940 Date: 07/10/21 Hearing Aid Contact Note: Mr. Glass returned today for tubing replacement. He is wearing two Phonak [employer]ong BTE hearing aids [facility]. I cleaned both earmolds and changed his tubing. Mr. Glass was pleased. Mr. Glass declined a follow up appointment stating that he will return as needed. Mr. Glass expressed understanding of and agreement with the above. Electronically Signed by: Cabrera Cage, CCC/A, FAAA ANITA Certified Clerical Coordinator 07/10/21 1:36 PM documented in this encounter [facility] Evaluation note Diagnosis Sensory hearing loss, bilateral- Primary [facility] Work Phone: Evaluation note* Diagnosis Myopia, bilateral- Primary Myopia Regular astigmatism of left eye Regular astigmatism documented in this encounter [facility] note* Diagnosis Hyponatremia- Primary Hyposmolality and/or hyponatremia Atrial fibrillation with slow ventricular response (HCC) Pancytopenia (HCC) Closed head injury, initial encounter Multiple skin tears Essential hypertension Unspecified essential hypertension Physical deconditioning Muscular wasting and disuse atrophy, not elsewhere classified Fall, initial encounter Periorbital hematoma of left eye Alcoholic cirrhosis, unspecified whether ascites present (HCC) Alcohol abuse Nondependent alcohol abuse, unspecified drinking behavior Abrasions of multiple sites Abrasion or friction burn of other, multiple, and unspecified sites, without mention of infection [facility] Diagnosis Pancytopenia (HCC)- Primary [facility] Diagnosis Fall at home, sequela- Primary Cellulitis of lower extremity, unspecified laterality Closed fracture of one rib of left side, initial encounter Alcohol abuse Nondependent alcohol abuse, unspecified drinking behavior Abrasions of multiple sites Abrasion or friction burn of other, multiple, and unspecified sites, without mention of infection Hyponatremia Hyposmolality and/or hyponatremia Lower extremity edema Edema New onset a-fib (HCC) Atrial fibrillation Fall Unspecified fall Contusion of head [facility] Diagnosis Atrial fibrillation, unspecified type (HCC)- Primary [facility] Diagnosis Atrial fibrillation, unspecified type (HCC) [facility] Diagnosis Floaters, bilateral- Primary 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 Lens replaced by other means Myopia, bilateral Myopia Regular astigmatism of both eyes Regular astigmatism documented in this encounter [facility] note* Diagnosis Atrial fibrillation, unspecified type (HCC)- Primary Atrial fibrillation, unspecified type (HCC) [facility] Diagnosis Floaters, bilateral- Primary 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 * Hyponatremia ([place]jiboutian) [facility]* Attachments The following attachments cannot be sent through Care Everywhere. * Alcohol Use Disorder: General Info ([place]jiboutian) * Alcohol Intoxication: Acute ([place]jib[place]ian) * 9 Ways to Cut Back on Drinking: Quick List ([place]jiboutian) [facility] Reason for Referral Status Reason Specialty Diagnoses / Procedures Referred By Contact Referred To Contact Pending Review Radiology Diagnoses New onset a-fib (HCC) Lower extremity edema Procedures NM Myocardial Perfusion Multiple SPECT Samina Lake MD [address] [place], [place] [id number] Status Reason Specialty Diagnoses / Procedures Referred By Contact Referred To Contact Pending Review Cardiology Diagnoses New onset a-fib (HCC) Lower extremity edema Procedures Echocardiogram complete Samina Lake MD [address] [place], [place] [id number] Status Reason Specialty Diagnoses / Procedures Referre d By Contact Referred To Contact Closed Cardiology Diagnoses New onset a-fib (HCC) Lower extremity edema Procedures Echocardiogram complete Samina Lake MD [address] [place] [id number] Specialty Diagnoses / Procedures Referred By Contac t Referred To Contact Home Health Services Diagnoses Atrial fibrillation with slow ventricular response (HCC) Closed head injury, initial encounter Essential hypertension Physical deconditioning Fall, initial encounter Periorbital hematoma of left eye Alcoholic cirrhosis, unspecified whether ascites present (HCC) Alcohol abuse Elza Cee MD [address] [place], [place] [id number] Referral ID Status Reason Start Date Expiration Date Visits Requested Visits Authorized [id number] Pending Review Specialty Services Required/Pat ient's Best Interest 04/13/2022 04/13/2023 1 1 Specialty Diagnoses / Procedures Referred By Contac t Referred To Contact Diagnoses Cellulitis of lower extremity, unspecified laterality Closed fracture of one rib of left side, initial encounter Alcohol abuse Fall at home, sequela Abrasions of multiple sites Hyponatremia Lower extremity edema New onset a-fib (HCC) Elza Cee MD [address] [place] [address] [facility] [address] [place] [address] Referral ID Status Reason Start Date Expiration Date Visits Requested Visits Authorized [id number] Pending Review Patient Preference 06/10/2022 06/10/2023 1 1 Specialty Diagnoses / Procedures Referred By Contac t Referred To Contact Cardiology Diagnoses Atrial fibrillation, unspecified type (HCC) Procedures ECG 12 Lead Kartik Pepper MD [address] [place], [place] [id number] Referral ID Status Reason Start Date Expiration Date V isits Requested Visits Authorized [id number] Authorized 08/31/2022 08/31/2023 15 15 Specialty Diagnoses / Procedures Referred By Contac t Referred To Contact Cardiology Diagnoses Atrial fibrillation, unspecified type (HCC) Procedures MCT- Mobile Cardiac Telemetry Kev Wallace CNP [address] [place] [address] Referral ID Status Reason Start Date Expiration Date Visits Re quested Visits Authorized [id number] Closed 04/10/2022 04/10/2023 1 1 Instructions * Patient Instructions* Carey Lucia RN - 03/03/2019 1:41 PM EDT .How to contact your Care Team: Provider: Samina Lake MD [facility] Nurse: Carey Lucia RN In case of an emergency please call 911. REFILLS: When in need for refills please call your care team or the office at [phone]. Please include medication name, pharmacy name, and specify 30-day or 90-day supply. Please check with your pharmacy within 24 hours of request for your refill. You must follow up as directed to continue current refills. Thank you! NUCLEAR MEDICINE CARDIAC STRESS TEST THIS IS A 3-4 HOUR TEST Instructions: Appointment Time: , ____/____/____ at ____:____ Prep: DO NOT Take your morning medications. Please bring your morning medications with you. NO CAFFEINE FOR 24 HOURS prior to your test. This includes drinks labeled decaffeinated. Nothing to eat 4 hours prior to your test. A small snack will be provided (crackers, granola bar, juice), or you may bring your own snack for after your stress test. You may drink fluids leading up to your test as long as they are caffeine-free. Decaffeinated drinks still contain some caffeine, please do not drink anything containing caffeine for 24 hours. NO SMOKING the day of your test. Wear comfortable shoes and clothing for exercising. No metal buttons or snaps please. Procedure: Check-in/Registration. Please bring photo ID, insurance cards, and any physician orders. Test explained in detail and IV started. Stress test performed, nuclear medicine will be injected through your IV during the stress test. Stress test recovery period. Heart scan performed. The doctor will review the pictures of your heart and decide if more pictures are needed before youleave. If more are needed you will get another injection of nuclear medicine and this will take an additional hour. The total time for this test is 3-4 hours. There are medications that interfere with this test. You may be instructed to hold medications. If so that will be listed here: If you have any further questions please contact your care team or [phone]. documented in this encounter History of Present Illness * Samina Lake MD - 03/03/2019 2:32 PM EDT OFFICE CONSULTATION NOTE [facility] [address] [facility] [address] [facility] [id number] Physicians: Jes Funk CNP (Family); Jes Funk CNP (Referring) Subjective: Salvador Glass is a 78 y.o. male seen in the office today for Establish Care (denies palpitations/ CP/ SOB/ increased fatigue ) . HPI: The patient is a pleasant 78-year-old gentleman with a past medical history significant for hypertension who was recently discovered to have atrial fibrillation. He states he has been without symptoms. He denies any anginal type chest discomfort. His breathing is baseline. He denies any orthopnea, p aroxysmal nocturnal dyspnea, syncope, or near syncope. He was recently traveling in [place] and was able to tour without difficulty. An EKG in the office today confirms what appears to be atrial fibrillation. He denies any prior cardiac history. Assessment & Plan: Lower extremity edema The patient has lower extremity edema. Some of this could be caused from amlodipine. An echocardiogram is pending to assess for right-sided pressures. He may benefit from compression stockings. He isalready on low-dose diuretic. Hypertension His blood pressure is elevated in the office. He states it is normally lower at home. [facility] New onset a-fib (HCC) The patient has atrial fibrillation. This is news to him. He should be on oral anticoagulation. However, the patient refuses. I had a long discussion with him regarding the risk of stroke. He verbalizes an understanding and states that I already believe too much. He was warned. I have ordered a Myoview SPECT to rule out occult ischemia. An echocardiogram is pending to assess for significant valvular heart disease and to assess right-sided pressures. The patient is not a candidate for cardioversion as he is refusing anticoagulation. I discussed this with him as well. His rate is reasonably controlled. I have asked him to take 81 mg of aspirin daily. If he changes his mind regarding anticoagulation, we will see him sooner to discuss possible card ioversion. Follow Up Ordered: Return in about 6 months (around 09/03/2019). Histories: Past Medical History: Diagnosis Date Arrhythmia A Fib Bradycardia Hypertension Leukopenia Mild anemia Psoriasis Renal failure History reviewed. No pertinent surgical history. Family History Problem Relation Age of Onset Emphysema Mother Diabetes Father Asthma Father Social History Tobacco Use Smoking status: Former Smoker Smokeless tobacco: Never Used Tobacco comment: quit in his 40s Substance Use Topics Alcohol use: Yes Comment: occasional Drug use: Never Current Outpatient Medications Medication Sig Dispense Refill amLODIPine (NORVASC) 5 MG tablet Take 5 mg by mouth daily . b complex vitamins capsule Take 1 capsule by mouth daily . calcium carbonate 168 mg calcium (420 mg) Chew Chew and Swallow daily as needed . clobetasol (TEMOVATE) 0.05 % scalp solution Apply topically daily Apply thin film onto dry scalp affected areas only. Leave in place for 15 min before lathering and rinsing. . hydrALAZINE (APRESOLINE) 50 MG tablet Take 50 mg by mouth 3 (three) times a day . hydroCHLOROthiazide (HYDRODIURIL) 25 MG tablet Take 12.5 mg by mouth daily . hydrocortisone 1 % cream Apply topically 2 (two) times a day . triamcinolone (KENALOG) 0.1 % cream Apply topically 2 (two) times a day Reasons: Psoriasis of Scalp. aspirin 81 MG EC tablet Take 1 (one) tablet (81 mg total) by mouth daily . 150 tablet 2 No current facility-administered medications for this visit. No Known Allergies Review of Systems Constitution: Negative for diaphoresis, malaise/fatigue, weight gain and weight loss. HENT: Negative for hearing loss, nosebleeds and tinnitus. Eyes: Negative for blurred vision and visual disturbance. Cardiovascular: Positive for leg swelling. Negative for chest pain, claudication, cyanosis, dyspneaon exertion, irregular heartbeat, near-syncope, orthopnea, palpitations, paroxysmal nocturnal dyspnea and syncope. Respiratory: Negative for hemoptysis, shortness of breath and snoring. Endocrine: Negative for cold intolerance and heat intolerance. Hematologic/Lymphatic: Does not bruise/bleed easily. Skin: Negative for flushing, poor wound healing and rash. Musculoskeletal: Negative for back pain, muscle weakness and myalgias. Gastrointestinal: Negative for abdominal pain, change in bowel habit, melena, nausea and vomiting. Genitourinary: Negative for decreased libido and hematuria. Neurological: Negative for loss of balance and numbness. Psychiatric/Behavioral: Negative for memory loss. The patient is not nervous/anxious. Overview of Problems Addressed: Problem New Onset A-Fib (Hcc) Hypertension Lower Extremity Edema Objective: Physical Exam Constitutional: He is oriented to person, place, and time. He appears well- developed and well-nourished. HENT: Head: Normocephalic. He is wearing hearing aids. Eyes: Pupils are equal, round, and reactive to light. Conjunctivae and EOM are normal. No scleral icterus. Neck: Normal range of motion. Neck supple. No JVD present. No tracheal deviation present. No thyromegaly present. Cardiovascular: Normal rate, S1 normal, S2 normal, normal heart sounds and intact distal pulses. Exam reveals no friction rub. No murmur heard. Irregular rhythm. Brisk pulses. Pulmonary/Chest: Breath sounds normal. No respiratory distress. He has no wheezes. He has no rales. Abdominal: Soft. Bowel sounds are normal. He exhibits no distension and no mass. There is no hepatosplenomegaly. There is no tenderness. Musculoskeletal: Normal range of motion. He exhibits edema. 2+ lower extremity edema left greater than right. Lymphadenopathy: He has no cervical adenopathy. Neurological: He is alert and oriented to person, place, and time. Skin: Skin is warm and dry. Psychiatric: He has a normal mood and affect. His behavior is normal. Vitals: Vitals: 03/03/19 1403 BP: (!) 162/57 BP Location: Left arm Patient Position: Sitting Pulse: 88 SpO2: 98% Height: 6' Orders Placed This Encounter NM Myocardial Perfusion Multiple SPECT ECG 12 Lead Echocardiogram complete b complex vitamins capsule calcium carbonate 168 mg calcium (420 mg) Chew triamcinolone (KENALOG) 0.1 % cream clobetasol (TEMOVATE) 0.05 % scalp solution hydrocortisone 1 % cream aspirin 81 MG EC tablet Thank you for allowing me to assist you in the cardiovascular care of this patient. Please don't hesitate to contact me if you have any questions regarding these thoughts. Samina Lake MD documented in this encounter* Sendy Jacobsen AuD - 04/05/2020 1:33 PM EDT [facility] [address] [facility] [address] Name: Salvador Glass : 1940 Date: 04/05/20 Hearing Aid Contact Note: Mr. Glass returned today for tubing replacement. He presented with two Phonak Bolero 90 BTE hearing aids [facility] The aids were clean and in good working order. I changed the tubing for both hearing aids and cleaned his earmolds. Mr. Glass reported a comfortable fit. [facility] issues and to our facility for minor issues. Mr. Glass expressed understanding of and agreement with the above. Cabrera Matthews, CCC/A, FAAA ANITA Certified Clerical Coordinator documented in this encounter Assessments Diagnosis Thrombocytopenia (HCC) Unspecified thrombocytopenia New onset a-fib (HCC) Atrial fibrillation Hypertension, unspecified type Lower extremity edema Edema Diagnosis Sensory hearing loss, bilateral- Primary Diagnosis New onset a-fib (HCC) Atrial fibrillation Lower extremity edema Edema Advance Directives No Advanced Directives Records FoundDocuments on File Type Date Recorded Patient Journalism Teacher Expl anation Advance Directives and Living Will Documents on File Type Date Recorded Patient Journalism Teacher Expl anation Advance Directives and Livin g Will Advance Directives and Livin g Will 03/28/2019 12:00 AM Documents on File Type Date Recorded Patient Journalism Teacher Expl anation Advance Directives and Livin g Will Advance Directives and Livin g Will 03/28/2019 12:00 AM Advance Directive Response Recorded Date/ Time Living Will Yes May 19 4:20pm Power of Electrician Rectifier Maintenance Yes May 19, 2021 4:20pm Documents on File Type Date Recorded Patient Journalism Teacher Expl anation Advance Directives and Living Will 03/28/2019 Latest Code Status on File Date Activated Date Inactivated Comments 04/07/2022 3:25 AM 04/15/2022 6:22 PM Documents on File Type Date Recorded Patient Journalism Teacher Expl anation Advance Directives and Living Will 03/28/2019 Latest Code Status on File Date Activated Date Inactivated Comments 04/07/2022 3:25 AM 04/15/2022 6:22 PM Latest Code Status on File Date Activated Date Inactivated Comments 06/07/2022 7:15 AM 06/11/2022 4:13 PM Full Code - Unverified Date Activated Date Inactivated Comments 04/07/2022 3:25 AM 04/15/2022 6:22 PM Latest Code Status on File Code Status Date Activated Date Inactivated Comments Full Code 06/07/2022 7:15 AM 06/11/2022 4:13 PM Code Status History Code Status Date Activated Date Inactivated Comments Full Code - Unverified 04/07/2022 3:25 AM 04/15/2022 6:22 PM Latest Code Status on File Code Status Date Activated Date Inactivated Comments Full Code 06/07/2022 7:15 AM 06/11/2022 4:13 PM Code Status History Code Status Date Activated Date Inactivated Comments Full Code - Unverified 04/07/2022 3:25 AM 04/15/2022 6:22 PM Documents on File Type Date Recorded Patient Journalism Teacher Expl anation Power of Electrician Rectifier Maintenance 08/14/2024 12:35 PM Advance Directives and Livin g Will 08/14/2024 12:35 PM Advance Directives and Livin g Will 03/28/2019 Date Activated Date Inactivated Comments 08/13/2024 1:58 AM 08/18/2024 8:22 PM Date Activated Date Inactivated Comments 06/07/2022 7:15 AM 06/11/2022 4:13 PM Date Activated Date Inactivated Comments 04/07/2022 3:25 AM 04/15/2022 6:22 PM Medications Administered Section Inactive Administered Medications - up to 3 most recent administrations Medication Order MAR Action Action Date Dose Rate Site tropicamide 1 % 1 Drop (MYDRIACYL) 1 Drop, BOTH EYES, ONCE, 1 dose, On Wed01/12/22 at 1130, FOR THE EYE Given 01/12/2022 11:30 AM EDT 1 Drop Inactive Administered Medications - up to 3 most recent administrations Medication Order MAR Action Action Date Dose Rate Site tropicamide 1 % 1 Drop (MYDRIACYL) 1 Drop, BOTH EYES, ONCE, 1 dose, On Wed03/01/23 at 1130, FOR THE EYE Given 03/01/2023 11:30 AM EDT 1 Drop Summary Purpose Family History No Family History Records FoundNo Family History Records FoundNo Family History Records FoundNo Family History Records FoundNo Family History Records FoundNo Family History Records Found Additional Source Comments Reason for Visit (unrecogniz ed section and content) Reason Comments Fall Specialty Diagnoses / Procedures Referred By Nicholas t Referred To Contact Diagnoses Alcohol abuse Closed fracture of one rib of left side, initial encounter Cellulitis of lower extremity, unspecified laterality Fall at home, sequela Referral ID Status Reason Start Date Expiration Date Visits Re quested Visits Authorized [id number] 1 1 Reason Comments Establish Care denies palpitations/ CP/ SOB/ increased fatigue Status Reason Specialty Diagnoses / Procedures Referred By Contact Referred To Contact Pending Review Specialty Services Required/Patien t's Best Interest Cardiology Diagnoses Thrombocytopenia (HCC) New onset a-fib (HCC) Jes Funk, GRETA [address] [place] [id number] [place] [address] Status Reason Specialty Diagnoses / Procedures Referre d By Contact Referred To Contact Closed Radiology Diagnoses New onset a-fib (HCC) Lower extremity edema Procedures NM Myocardial Perfusion Multiple SPECT Samina Lake MD [address] [place] [id number] Status Reason Specialty Diagnoses / Procedures Referre d By Contact Referred To Contact Closed Cardiology Diagnoses New onset a-fib (HCC) Lower extremity edema Procedures Echocardiogram complete Samina Lake MD [address] [place] [id number] Reason Comments Yearly Exam Specialty Diagnoses / Procedures Referred By Nicholas soto Referred To Contact Diagnoses Hyponatremia Pancytopenia (HCC) Atrial fibrillation with slow ventricular response (HCC) Multiple skin tears Closed head injury, initial encounter Referral ID Status Reason Start Date Expiration Date Visits Re quested Visits Authorized [id number] 1 1 Reason Comments Follow-up 4 mo review VAL/Fib and pause/ Reason Comments Floaters OU Reason Comments Floaters Both Eyes Reason Comments Corneal guttata Follow up- both eyes Reason Comments Fall Patient states aroun d 11 last night patient was in the bathroom when he fell. Lac noted to forehead. Patient states he passed out for an unknown amount of time, and when he woke up he was unable to get up so was on the ground all night. C/o left rib and arm pain. Denies blood thinners. Family called [facility] dept to do a welfare check when they were not able to get a hold of him Assessment & Plan Note - Samina Lake MD - 03/03/2019 2:38 PM EDTAssessment & Plan Note - Samina Lake MD - 03/03/2019 2:38 PM EDT Miscellaneous Notes (unrecog nized section and content) Associated Problem(s): New onset a-fib (HCC) The patient has atrial fibrillation. This is news to him. He should be on oral anticoagulation. However, the patient refuses. I had a long discussion with him regarding the risk of stroke. He verbalizes an understanding and states that I already believe too much. He was warned. I have ordered a Myoview SPECT to rule out occult ischemia. An echocardiogram is pending to assess for significant valvular heart disease and to assess right-sided pressures. Associated Problem(s): Hypertension His blood pressure is elevated in the office. He states it is normally lower at home. [facility] Associated Problem(s): Lower extremity edema The patient has lower extremity edema. Some of this could be caused from amlodipine. An echocardiogram is pending to assess for right-sided pressures. He may benefit from compression stockings. He is already on low-dose diuretic. documented in this encounter Claribel Bartlett RN - 03/28/2019 9:00 AM EDT Nursing Notes (unrecognized section and content) Resting ECG A-Fib. Tolerated exercise well, denies CP with exertion. documented in this encounter Care Teams (unrecognized sec tion and content) Metal Expediter Relationship Specialty Start Date End Date Blessing Jes L, AOC DIRECTOR COMBAT OPERATIONS OFFICER PCP - General Family Medicine 01/31/19 Metal Expediter Relationship Specialty Start Date End Date Walter Munguia MD [address] [place], [place] [address] PCP - General Family Practice 01/12/22 Metal Expediter Relationship Specialty Start Date End Date Walter Munguia MD [address] [place], [place] [address] PCP - General Family Medicine 04/06/22 Metal Expediter Relationship Specialty Start Date End Date Walter Munguia MD [address] [place], [place] [id number] PCP - General Family Medicine 04/06/22 Metal Expediter Relationship Specialty Start Date End Date Walter Munguia MD [address] [place] [address] PCP - General Family Medicine 04/06/22 Metal Expediter Relationship Specialty Start Date End Date Walter Munguia MD [address] [place] [address] PCP - General Family Medicine 04/06/22 Metal Expediter Relationship Specialty Start Date End Date Walter Munguia MD [address] [place], [place] [id number] PCP - General Family Medicine 04/06/22 Metal Expediter Relationship Specialty Start Date End Date Walter Munguia MD [address] [place], [place] [address] PCP - General Family Medicine 04/06/22 Metal Expediter Relationship Specialty Start Date End Date Walter Munguia MD [address] [place], [place] [id number] PCP - General Family Medicine 04/06/22 Metal Expediter Relationship Specialty Start Date End Date Walter Munguia MD [address] [place], [place] [id number] PCP - General Family Medicine 01/12/22 Metal Expediter Relationship Specialty Start Date End Date Walter Munguia MD [address] [place], [place] [id number] PCP - General Family Medicine 04/06/22 Metal Expediter Relationship Specialty Start Date End Date Nanci Flores NP [address] [place], [place] [address] PCP - General Family Medicine 03/27/24 Metal Expediter Relationship Specialty Start Date End Date Nanci Flores NP [address] [place], [place] [id number] PCP - General Family Medicine 03/27/24 Metal Expediter Relationship Specialty Start Date End Date Melany Flores Pa-C [address] [place] [address] PCP - General 08/12/24 Metal Expediter Relationship Specialty Start Date End Date Sandra [place], ANGELA Mosley [address] [place] [address] PCP - General 08/12/24 Metal Expediter Relationship Specialty Start Date End Date Nanci Flores CNP [facility] [address] [place] [address] PCP - General Nurse Practitioner 08/13/24 Goals (unrecognized section and content) Goals may be documented in a n alternate sectionGoals may be documented in an alternate section Source Comments (unrecognize d section and content) In the event this informatio n is protected by the Federal Confidentiality of Alcohol and Drug Abuse Patient Records regulations: The Federal rules restrict any use of the information to criminally investigate or prosecute any alcohol or drug abuse patient.[facility] the event this information is protected by the Federal Confidentiality of Alcohol and Drug Abuse Patient Records regulations: The Federal rules restrict any use of the information to criminally investigate or prosecute any alcohol or drug abuse patient.[facility] the event this information is protected by the Federal Confidentiality of Alcohol and Drug Abuse Patient Records regulations: The Federal rules restrict any use of the information to criminally investigate or prosecute any alcohol or drug abuse patient.[facility] the event this information is protected by the Federal Confidentiality of Alcohol and Drug Abuse Patient Records regulations: The Federal rules restrict any use of the information to criminally investigate or prosecute any alcohol or drug abuse patient.[facility] Scheduled Active and Recently Administ ered Medications (unrecognized section and content) Medication Order 04/13/2022 04/14/2022 04/15/2022 amLODIPine (NORVASC) tablet 5 mg 5 mg, Oral, Daily, First dose on Wed04/07/22 at 0900 0802 (Given - Provider: Genny Ponce RN) 0825 (Given - Provider: Abebe Vasquez RN) 0801 (Given - Provider: Genny Ponce RN) aspirin EC tablet 81 mg 81 mg, Oral, Daily, First dose on Wed04/07/22 at 0900, DO NOT CRUSH OR CHEW. 0802 (Given - Provider: Genny Ponce RN) 0823 (Given - Provider: Abebe Vasquez RN) 0800 (Given - Provider: Genny Ponce RN) bacitracin zinc ointment Topical, Daily, First dose on Wed04/07/22 at 1230, APPLY TO ADAPTIC *See wound care order 0803 (Given - Provider: Genny Ponce RN) 0525 (Given - Provider: Rosie Varma RN)0900 (Not Given - Provider: Abebe Vasquez RN - Reason: Other - Comment: see alternate entry) 0800 (Given - Provider: Genny Ponce RN) docusate sodium (COLACE) capsule 100 mg 100 mg, Oral, Daily, First dose on Wed04/07/22 at 0900, [] Hold for loose stools. DO NOT CRUSH OR CHEW. 08 (Given - Provider: Genny Ponce RN) 08 (Given - Provider: Abebe Vasquez RN) 08 (Given - Provider: Genny Ponce RN) enoxaparin (LOVENOX) syringe 40 mg 40 mg, Subcutaneous, Daily, First dose on Wed04/12/22 at 1100, Administer in abdomen unless otherwise directed by prescriber. Notify physician if patient refuses., Indication: VTE Prophylaxis 08 (Given - Provider: Genny Ponce RN) 08 (Given - Provider: Abebe Vasquez RN) 08 (Given - Provider: Genny Ponce RN) furosemide (LASIX) tablet 20 mg (CANCELED) 20 mg, Oral, Daily, First dose on Wed04/13/22 at 1500 1534 (Given - Provider: Genny Ponce RN) hydrALAZINE (APRESOLINE) tablet 50 mg 50 mg, Oral, 3 times daily, First dose on Wed04/07/22 at 0900 0900 (Given - Provider: Genny Ponce RN)1516 (Given - Provider: Genny Ponce RN)2247 (Given - Provider: Rosie Varma, ZANA) 0825 (Given - Provider: Abebe Vasquez RN)1444 (Given - Provider: Abebe Vasquez RN)2009 (Given - Provider: Annamarie Ward RN) 0800 (Given - Provider: Genny Ponce, ZANA)1500 (Due) pantoprazole (PROTONIX) EC tablet 40 mg 40 mg, Oral, Daily, First dose on Wed04/07/22 at 0900, DO NOT CRUSH OR CHEW. 08 (Given - Provider: Genny Ponce RN) 08 (Given - Provider: Abebe Vasquez RN) 08 (Given - Provider: Genny Ponce RN) polyethylene glycol (MIRALAX) powder 17 g 17 g, Oral, Daily, First dose on Wed04/09/22 at 1400 0802 (Given - Provider: Genny Ponce RN) 0827 (Given - Provider: Abebe Vasquez RN) 0801 (Given - Provider: Genny Ponce RN) sodium chloride (PF) (NS) flush 5 mL(Linked Group 1) 5 mL, Intravenous, Every 8 hours scheduled, First dose on Wed04/07/22 at 0600, Saline lock 0600 (Given - Provider: Kemi Herrera RN)1516 (Given - Provider: Genny Ponce RN)2247 (Given - Provider: Rosie Varma RN) 0526 (Given - Provider: Rosie Varma, RN)1444 (Given - Provider: Abebe Vasquez RN)2200 (Given - Provider: Annamarie Ward, ZANA) 0514 (Given - Provider: Annamarie Ward, ZANA)1400 (Given - Provider: Genny Ponce RN) sodium chloride 1,000 mg 1,000 mg (1 g), Oral, 3 times daily with meals, First dose on Wed04/09/22 at 1200 0800 (Due)0805 (Given - Provider: Genny Ponce RN)1124 (Given - Provider: Genny Ponce RN)1658 (Given - Provider: Genny Ponce RN) 0823 (Given - Provider: Abebe Vasquez RN)1138 (Given - Provider: Abebe Vasquez RN)1746 (Given - Provider: Abebe Vasquez RN) 0800 (Given - Provider: Genny Ponce RN)1130 (Given - Provider: Genny Ponce RN) PRN Medication Order 04/13/2022 04/14/2022 04/15/2022 acetaminophen (TYLENOL) tablet 650 mg 650 mg, Oral, Every 6 hours PRN, headaches, fever 100.4 F or greater, mild pain, infusion related reactions, Starting on Wed04/07/22 at 0446 0222 (Not Given - Provider: Kemi Herrera RN - Reason: Other - Comment: returned to [facility]) aluminum-magnesium hydroxide-simethicone (MAALOX PLUS) 200-200-20 mg/5 mL suspension 30 mL 30 mL, Oral, Every 4 hours PRN, indigestion, Starting on Wed04/07/22 at 0446 bisacodyL (DULCOLAX) suppository 10 mg 10 mg, Rectal, Daily PRN, constipation, Starting on Wed04/07/22 at 0900, Try oral medications first for constipation. Try rectal medication if oral meds are ineffective, not tolerated, or not ordered. magnesium hydroxide (MOM) 400 mg/5 mL suspension 2,400 mg 2,400 mg (30 mL), Oral, Daily PRN, constipation, Starting on Wed04/07/22 at 0446, If no bowel movement in 24 hours after Sennosides (SENNA) administration. melatonin tablet 3 mg 3 mg, Oral, Nightly PRN, Sleep, Starting on Wed04/07/22 at 0900, If still awake in 1 hour proceed to trazodone (Desyrel) ondansetron (ZOFRAN) injection 4 mg(Linked Group 2) 4 mg, Intravenous, Every 6 hours PRN, nausea, vomiting, Starting on Wed04/07/22 at 0446, Use oral route first, if tolerated. 0828 (Not Given - Provider: Genny Ponce RN - Reason: Patient/family refused) ondansetron (ZOFRAN-ODT) disintegrating tablet 4 mg(Linked Group 2) 4 mg, Oral, Every 6 hours PRN, nausea, vomiting, Starting on Wed04/07/22 at 0446, Use oral route first, if tolerated. Formulation requires tablet remain in sealed package until immediately prior to dose being administered. 0828 (See Alternative - Provider: Genny Ponce RN) senna (SENOKOT) tablet 8.6 mg 8.6 mg (1 tablet), Oral, 2 times daily PRN, constipation, Starting on Wed04/07/22 at 0900 sodium chloride (PF) (NS) flush 5 mL(Linked Group 1) 5 mL, Intravenous, As needed, line care, Starting on Wed04/07/22 at 0446 sodium chloride 0.9% (NS)(Linked Group 1) 0-150 mL/hr, Intravenous, As needed, To flush line after IV infusions when no maintenance IV ordered or a compatibility issue. Infuse 20ml at the same rate as the secondary infusion, Starting on Wed04/07/22 at 0446, Run as Primary IV. NOT intended for KVO. traZODone (DESYREL) tablet 50 mg 50 mg, Oral, Nightly PRN, sleep, Starting on Wed04/07/22 at 0900, To be administered 1 hour after melatonin if still awake. May repeat x 1 dose in 30 minutes if still awake. Linked Groups Order Group 1: Saline lock IV (CANCELED) Routine, Continuous, Starting on Wed04/07/22 at 0447, Until Specified And sodium chloride (PF) (NS) flush 5 mLJump to med 5 mL, Intravenous, As needed, line care, Starting on Wed04/07/22 at 0446 And sodium chloride (PF) (NS) flush 5 mLJump to med 5 mL, Intravenous, Every 8 hours scheduled, First dose on Wed04/07/22 at 0600
Saline lock
And sodium chloride 0.9% (NS)Jump to med 0-150 mL/hr, Intravenous, As needed, To flush line after IV infusions when no maintenance IV ordered or a compatibility issue. Infuse 20ml at the same rate as the secondary infusion, Starting on Wed04/07/22 at 0446
Run as Primary IV. NOT intended for KVO.
Group 2: ondansetron (ZOFRAN-ODT) disintegrating tablet 4 mgJump to med 4 mg, Oral, Every 6 hours PRN, nausea, vomiting, Starting on Wed04/07/22 at 0446
Use oral route first, if tolerated. Formulation requires tablet remain in sealed package until immediately prior to dose being administered.
Or ondansetron (ZOFRAN) injection 4 mgJump to med 4 mg, Intravenous, Every 6 hours PRN, nausea, vomiting, Starting on Wed04/07/22 at 0446
Use oral route first, if tolerated.
Scheduled Medication Order 06/09/2022 06/10/2022 06/11/2022 amLODIPine (NORVASC) tablet 5 mg 5 mg, Oral, Daily, First dose on 06/07/22 at 0900 0857 (Given - Provider: Keesha Arnold) 0831 (Given - Provider: Iman Flores LPN) 0900 (Given - Provider: Jennifer Mckinnon RN) amoxicillin-clavulanat e (AUGMENTIN) 500-125 mg per tablet 1 tablet 1 tablet, Oral, Every 8 hours scheduled, First dose on 06/07/22 at 1400, Indication: Skin/Soft Tissue Infection 0614 (Given - Provider: Re Hinton RN)1408 (Given - Provider: Keesha Arnold)2048 (Given - Provider: Iman Flores LPN) 0613 (Given - Provider: Iman Flores LPN)1622 (Given - Provider: Ese Saavedra RN)210 (Given - Provider: Nanci Dumont RN) 0526 (Given - Provider: Nanci Dumont RN)1335 (Given - Provider: Jennifer Mckinnon RN) aspirin EC tablet 81 mg 81 mg, Oral, Daily, First dose on 06/07/22 at 0900, DO NOT CRUSH OR CHEW. 0857 (Given - Provider: Keesha Arnold) 0831 (Given - Provider: Iman Flores LPN) 0900 (Given - Provider: Jennifer Mckinnon RN) folic acid (FOLVITE) tablet 1 mg 1 mg, Oral, Daily, First dose on 06/08/22 at 0900 0856 (Given - Provider: Keesha Arnold) 0831 (Given - Provider: Iman Flores LPN) 0859 (Given - Provider: Jennifer Mckinnon RN) hydrALAZINE (APRESOLINE) tablet 25 mg 25 mg, Oral, 3 times daily, First dose on 06/07/22 at 0900 0856 (Given - Provider: Keesha Arnold)1529 (Given - Provider: Keesha Arnold)2048 (Given - Provider: Iman Flores LPN) 0831 (Given - Provider: Iman Flores LPN)1622 (Given - Provider: Ese Saavedra RN)210 (Given - Provider: Nanci Dumont RN) 0859 (Given - Provider: Jennifer Mckinnon RN) pantoprazole (PROTONIX) EC tablet 40 mg 40 mg, Oral, Daily, First dose on 06/07/22 at 0900, DO NOT CRUSH OR CHEW. 0856 (Given - Provider: Keesha Arnold) 0831 (Given - Provider: Iman Flores LPN) 0901 (Given - Provider: Jennifer Mckinnon RN) sodium chloride (PF) (NS) flush 5 mL(Linked Group 1) 5 mL, Intravenous, Every 8 hours scheduled, First dose on Wed06/07/22 at 0815, Saline lock 0615 (Given - Provider: Re Hinton RN)1408 (Given - Provider: Keesha Arnold)2050 (Given - Provider: Iman Flores LPN) 0614 (Given - Provider: Iman Flores LPN)1400 (Given - Provider: Ese Saavedra RN)2107 (Given - Provider: Nanci Dumont RN) 0526 (Given - Provider: Nanci Dumont RN)1400 (Canceled Entry - Provider: Jennifer Mckinnon RN) thiamine tablet 100 mg 100 mg, Oral, Daily, First dose on Wed06/08/22 at 0900 0856 (Given - Provider: Keesha Arnold) 0831 (Given - Provider: Iman Flores LPN) 0859 (Given - Provider: Jennifer Mckinnon RN) PRN Medication Order 06/09/2022 06/10/2022 06/11/2022 flu vacc [id number](65yr up)-PF (FLUZONE HIGH-DOSE) syringe 0.7 mL 0.7 mL, Intramuscular, Prior To Discharge, administer vaccine prior to discharge, ., Starting on Wed06/08/22 at 0200, For 1 dose hydrALAZINE (APRESOLINE) injection 10 mg 10 mg, Intravenous, Every 6 hours PRN, SBP >170, Starting on Wed06/07/22 at 1000 magnesium hydroxide (MOM) 400 mg/5 mL suspension 2,400 mg 2,400 mg (30 mL), Oral, Daily PRN, constipation, Starting on Wed06/07/22 at 0715, If no bowel movement in 24 hours after Sennosides (SENNA) administration. melatonin Tab 5 mg 5 mg, Oral, Nightly PRN, Sleep, Starting on Wed06/07/22 at 0715 ondansetron (ZOFRAN) injection 4 mg(Linked Group 2) 4 mg, Intravenous, Every 6 hours PRN, nausea, vomiting, Starting on Wed06/07/22 at 0715, Use oral route first, if tolerated. ondansetron (ZOFRAN-ODT) disintegrating tablet 4 mg(Linked Group 2) 4 mg, Oral, Every 6 hours PRN, nausea, vomiting, Starting on Wed06/07/22 at 0715, Use oral route first, if tolerated. Formulation requires tablet remain in sealed package until immediately prior to dose being administered. pneumococcal conj. 20-valent (PREVNAR 20) vaccine 0.5 mL 0.5 mL, Intramuscular, Prior To Discharge, administer vaccine prior to discharge, Starting on Wed06/08/22 at 0200, For 1 dose, REFRIGERATE. Hold the pre-filled syringe horizontally between the thumb and the forefinger and shake vigorously until the vaccine is a homogeneous white suspension. Do not use the vaccine if it cannot be re-suspended. For IM Use ONLY. sodium chloride (PF) (NS) flush 5 mL(Linked Group 1) 5 mL, Intravenous, As needed, line care, Starting on Wed06/07/22 at 0713 sodium chloride 0.9% (NS)(Linked Group 1) 0-150 mL/hr, Intravenous, As needed, To flush line after IV infusions when no maintenance IV ordered or a compatibility issue. Infuse 20ml at the same rate as the secondary infusion, Starting on Wed06/07/22 at 0713, Run as Primary IV. NOT intended for KVO. Linked Groups Order Group 1: Saline lock IV (CANCELED) Routine, Continuous, Starting on Wed06/07/22 at 0714, Until Specified And sodium chloride (PF) (NS) flush 5 mLJump to med 5 mL, Intravenous, As needed, line care, Starting on Wed06/07/22 at 0713 And sodium chloride (PF) (NS) flush 5 mLJump to med 5 mL, Intravenous, Every 8 hours scheduled, First dose on Wed06/07/22 at 0815
Saline lock
And sodium chloride 0.9% (NS)Jump to med 0-150 mL/hr, Intravenous, As needed, To flush line after IV infusions when no maintenance IV ordered or a compatibility issue. Infuse 20ml at the same rate as the secondary infusion, Starting on 06/07/22 at 0713
Run as Primary IV. NOT intended for KVO.
Group 2: ondansetron (ZOFRAN-ODT) disintegrating tablet 4 mgJump to med 4 mg, Oral, Every 6 hours PRN, nausea, vomiting, Starting on 06/07/22 at 0715
Use oral route first, if tolerated. Formulation requires tablet remain in sealed package until immediately prior to dose being administered.
Or ondansetron (ZOFRAN) injection 4 mgJump to med 4 mg, Intravenous, Every 6 hours PRN, nausea, vomiting, Starting on 06/07/22 at 0715
Use oral route first, if tolerated.
Scheduled Medication Order 08/10/2024 08/11/2024 08/12/2024 amLODIPine (Norvasc) tablet 5 mg 5 mg, oral, Daily, First dose on 08/12/24 at 1920 1935 (Given - Provid er: Beryl Berrios RN) hydrALAZINE (Apresoline) tablet 25 mg (COMPLETED) 25 mg, oral, Once, On 08/12/24 at 1920, For 1 dose 1947 (Given - Provid er: Beryl Berrios RN) iohexol (OMNIPaque) 350 mg iodine/mL solution 100 mL (COMPLETED) 100 mL, intravenous, Once in imaging, Starting on 08/12/24 at 1812, For 1 dose 1821 (Given - Provid er: Romelia Coronado) morphine injection 4 mg (COMPLETED) 4 mg, intravenous, Once, On 08/12/24 at 1925, For 1 dose 1939 (Given - Provid er: Beryl Berrios RN) morphine injection 4 mg (COMPLETED) 4 mg, intravenous, Once, On 08/12/24 at 2340, For 1 dose 2340 (Given - Provid er: Beryl Berrios RN) ondansetron (Zofran) injection 4 mg (COMPLETED) 4 mg, intravenous, Once, On 08/12/24 at 1925, For 1 dose, When administering via IV Push, administer over 3-5 minutes. 1935 (Given - Provid er: Beryl Berrios RN) (unrecognized sect ion and content) No Status Records FoundNo Status Records FoundNo Status Records FoundNo Status Records FoundNo Status Records FoundNo Status Records Found INFORMATION SOURCE (unrecogn ized section and content) DATE CREATED AUTHOR 09/07/2022 [facility] DATE CREATED AUTHOR AUTHOR'S ORGANIZ ATION 04/26/2024 [facility] DATE CREATED AUTHOR AUTHOR'S ORGANIZ ATION 08/20/2024 [facility] DATE CREATED AUTHOR AUTHOR'S ORGANIZ ATION 08/22/2024 [facility] [place] DATE CREATED AUTHOR AUTHOR'S ORGANIZ ATION 08/22/2024 [facility] DATE CREATED AUTHOR AUTHOR'S ORGANIZ ATION 01/06/2025 [facility] FOR RECORDS PERTAINING TO PATIENTS WHO ARE OR HAVE BEEN ENROLLED IN A CHEMICAL DEPENDENCY/SUBSTANCEABUSE PROGRAM, SOME INFORMATION MAY BE OMITTED. This clinical summary was aggregated from multiple sources. Caution should be exercised in using it in the provision of clinical care. This summary normalizes information from multiple sources, and as a consequence, information in this document may materially change the coding, format and clinical context of patient data. In addition, data may be omitted in some cases. CLINICAL DECISIONS SHOULD BE BASED ON THE PRIMARY CLINICAL RECORDS. [employer] provides no warranty or guarantee of the accuracy or completeness of information in this document.
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
[2025-01-08] MEDS: Lactated Ringers 1,000 ML 15 ML IV (07:48)
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
--- NOTE | 2025-01-08 08:15 | EGD_PTH ---
PATIENT: BREEZY GLASS Jr. LOC: EN U#:[id number] AGE/SX: 84/M ROOM: RE01/08/[address]: Dr. Walter Gallegos DO : 1940 BED: DIS: 01/08/2025 SPEC #: [id number] RECD: 01/08/25 11:23 STATUS: GONZALO SINDHU #: [id number] POLY: 01/08/25 08:[address]: Walter Gallegos DEPT: SURGICAL PATHOLOGY RECD BY: Yonis Casillas ENTERED: 01/08/25 12:09 SP TYPE: EGD BIOPSY OT DR: Cassandra Gardner, OVEREDGER-C Tissues: S - Gastric mucous membrane Procedures: Immunohistochemical Stains Surgery Specimen Level IV HEADER OPERATION: EGD with biopsy PRE-OP DIAGNOSIS: Cirrhosis, anemia, alcoholic hepatitis, gastric ulcer TISSUE SUBMITTED: A- Gastric antrum biopsy MICROSCOPIC DIAGNOSIS A. Gastric antrum, biopsy: Chronic gastritis. IHC negative for H pylori organisms. MICROSCOPIC DESCRIPTION Slides are reviewed. All matched controls reacted appropriately. These tests were developed and their performance characteristics determined by [facility]. They may not have been cleared or approved by the U.S. Food and Drug Administration. The FDA has determined that such clearance or approval is not necessary. The above immunohistochemical/dualISH markers are ordered and reviewed by the Pathologist. GROSS DESCRIPTION A. Received in fixative is one container labeled with the patient's name and designated Gastric antrum biopsy. The specimen consists of two irregular fragments of light haskins soft tissue that in aggregate measure 0.7 x 0.3 x 0.2 cm. The specimen is totally submitted in one cassette. 01/08/2025 CPT:07528,65049
--- NOTE | 2025-01-08 08:53 | OP.EGD_ITS ---
Patient Name: Salvador Borges Procedure Date: 01/08/2025 8:35 AM Date of : 1940 Age: 84 Procedure: Upper GI endoscopy Indications: Follow-up of peptic ulcer Providers: Walter Gallegos DO Referring MD: Raciel Eduardo Medicines: Monitored Anesthesia Care Patient Profile: This is an 84 year old male. Refer to note in patient chart for documentation of history and physical. Patient has symptoms. His most recent EGD for treatment of bleeding and EGD for ulcer treatment was within the past three months. Complications: No immediate complications. Procedure: Pre-Anesthesia Assessment: - Prior to the procedure, a History and Physical was performed, and patient medications and allergies were reviewed. The patient is competent. The risks and benefits of the procedure and the sedation options and risks were discussed with the patient. All questions were answered and informed consent was obtained. Patient identification and proposed procedure were verified by the physician in the pre-procedure area. Mental Status Examination: alert and oriented. Airway Examination: normal oropharyngeal airway and neck mobility. Respiratory Examination: clear to auscultation. CV Examination: normal. Prophylactic Antibiotics: The patient does not require prophylactic antibiotics. Prior Anticoagulants: The patient has taken no anticoagulant or antiplatelet agents except for NSAID medication. ASA Grade Assessment: II - A patient with mild systemic disease. After reviewing the risks and benefits, the patient was deemed in satisfactory condition to undergo the procedure. The anesthesia plan was to use monitored anesthesia care (MAC). Immediately prior to administration of medications, the patient was re-assessed for adequacy to receive sedatives. The heart rate, respiratory rate, oxygen saturations, blood pressure, adequacy of pulmonary ventilation, and response to care were monitored throughout the procedure. The physical status of the patient was re-assessed after the procedure. After obtaining informed consent, the endoscope was passed under direct vision. Throughout the procedure, the patient's blood pressure, pulse, and oxygen saturations were monitored continuously. The Endoscope was introduced through the mouth, and advanced to the second part of duodenum. The upper GI endoscopy was accomplished without difficulty. The patient tolerated the procedure well. Scope In: 8:46:25 AM Scope Out: 8:48:24 AM Total Procedure Duration Time 0 hours 1 minute 59 seconds Findings: The examined esophagus was normal. Patchy mildly erythematous mucosa without bleeding was found in the gastric antrum. Biopsies were taken with a cold forceps for histology. Verification of patient identification for the specimen was done. Estimated blood loss was minimal. Biopsies were taken with a cold forceps for Helicobacter pylori testing. Verification of patient identification for the specimen was done. Estimated blood loss was minimal. No gross lesions were noted in the entire examined duodenum. Impression: - Normal esophagus. - Erythematous mucosa in the antrum. Biopsied. - No gross lesions in the entire examined duodenum. Recommendation: - Discharge patient to home. - Resume previous diet. - Continue present medications. - Await pathology results. Procedure Code(s): --- Professional --- 47623, Esophagogastroduodenoscopy, flexible, transoral; with biopsy, single or multiple CPT copyright 2021 [employer]. All rights reserved. The codes documented in this report are preliminary and upon supervisor tunnel heading review may be revised to meet current compliance requirements. Walter Gallegos DO 01/08/2025 8:53:30 AM This report has been signed electronically. Number of Addenda: 0 Note Initiated On: 01/08/2025 8:35 AM
--- NOTE | 2025-01-08 08:54 | OP.CCLET_ITS ---
01/08/2025 Raciel Eduardo Re : Upper GI endoscopy procedure for Salvador Borges Dear Jj This procedure was performed on Wednesday, January 08, 2025. My impressions and recommendations are as follows: Impressions : - Normal esophagus. - Erythematous mucosa in the antrum. Biopsied. - No gross lesions in the entire examined duodenum. Recommendations : - Discharge patient to home. - Resume previous diet. - Continue present medications. - Await pathology results. My findings are described in the full procedure note, which is enclosed. If I can be of further assistance, please feel free to contact me at . Sincerely, Walter Gallegos, 01/08/2025 8:53:30 AM This report has been signed electronically.
--- NOTE | 2025-01-08 08:59 | PCM.POST.ANE ---
Anesthesia: Postop Eval I Current Vital Signs Temperature: 97.7 F Pulse Rate: 60 Blood Pressure: 139/60 Respiratory Rate: 14 Pulse Ox: 100 Oxygen Delivery Method: Room Air Assessment Airway patent: Yes Spontaneous unlabored respirations: Yes Mental status: Awake and Calm nausea: No Vomiting: No Anesthesia Complication: No Fluid Hydration Crystalloid volume administer (ml): 800 Total IV fluid infused: 800 Progress Note Anesthesia document: Postop Eval 1 completed: Yes
--- NOTE | 2025-01-08 09:28 | PCM.POSTANE2 ---
Anesthesia Postop Eval I Sum Postop Eval Completion status Anesthesia document: Postop Eval 1 completed: Yes Anesthesia Postop Eval I Summary Anesthesia Postop Eval I Summary: Anesthesia Postop Eval I: Assessment Summary Airway patent Yes 01/08/25 08:59 [email or web address] Spontaneous unlabored Yes 01/08/25 08:59 [email or web address] respirations Mental status Awake,Calm 01/08/25 08:59 [email or web address] nausea No 01/08/25 08:59 [email or web address] Vomiting No 01/08/25 08:59 [email or web address] Anesthesia Postop Eval I: Fluid Summary Crystalloid volume administer 800 01/08/25 08:59 [email or web address] (ml) Colloids volume administered ( ml) Blood Product volume administered (ml) Total IV fluid infused 800 01/08/25 08:59 [email or web address] Anesthesia Postop Eval I: Summary Notes Anesthesia Complication No 01/08/25 08:59 [email or web address] Anesthesia Complication Comment: Post-operative progress note Anesthesia: Postop Eval II Evaluation Mental status: Awake Pain Level: 0 nausea: No Vomiting: No
== END 2025-01-08 10:10 | disposition home or self-care (01) ==
LOC: EN 07:09 → AC 07:09
PROVIDERS: PCP Nurse Practitioner Family; Referring Provider Nurse Practitioner Family; Visit Provider Internal Medicine Gastroenterology
PROC: 0DJ08ZZ Inspection of Upper Intestinal Tract, Via Natural or Artificial Opening Endoscopic (ICD-10-PCS; CPT 43235; principal; 2025-01-08 08:10)
DX: K29.50 Unspecified chronic gastritis without bleeding (principal); D61.818 Other pancytopenia; K74.60 Unspecified cirrhosis of liver; I11.0 Hypertensive heart disease with heart failure; I50.22 Chronic systolic (congestive) heart failure; F10.21 Alcohol dependence, in remission; K70.10 Alcoholic hepatitis without ascites; R16.1 Splenomegaly, not elsewhere classified; K25.9 Gastric ulcer, unspecified as acute or chronic, without hemorrhage or perforation; K76.0 Fatty (change of) liver, not elsewhere classified; Z87.891 Personal history of nicotine dependence; J45.909 Unspecified asthma, uncomplicated; Z79.899 Other long term (current) drug therapy
CPT/HCPCS: 43239; 88305; 88342; J2405

== ENCOUNTER → 2025-01-09 | Outpatient (CLI) | payer MEDICARE, SELFPAY ==
[2025-01-09 17:11] LABS: Absolute Lymphocyte Count 0.57 X10^3/uL (0.83-4.51); Absolute Neutrophil Count 2.8 X10^3/uL (2.0-7.7); Basophil# 0.04 X10^3/uL; Eosinophil# 0.09 X10^3/uL; Eosinophils% 2.3 % (0-5); Hematocrit 33.6 % (40-54); Hemoglobin 10.6 g/dL (13.0-16.5); Lymphocyte # 0.57 X10^3/ul (0.83-4.51); Lymphocyte % 14.5 % (19-41); Mean Corp Hgb Conc 31.5 g/dL (32-36); Mean Corpuscular Volume 85.7 fL (80-94); Mean Platelet Vol. 9.8 fl (6.2-12.0); Monocyte% 10.2 % (0-10); NRBC Flagged by Analyzer 0 % (0-5); Neutrophil # 2.82 X10^3/uL (2.7-7.7); Neutrophil % 71.7 % (47-70); POSITIVE DIFFERENTIAL YES; Platelet Count 193 K/mm3 (150-450); RBC Distribution Width CV 14.3 % (11.6-14.6); RBC Distribution Width SD 44.1 fl (35.1-43.9); Red Blood Count 3.92 M/mm3 (4.6-6.2); White Blood Count 3.9 K/mm3 (4.4-11.0)
[2025-01-09 17:23] LABS: ALB/GLOB Ratio 1.3 RATIO (0.9-2.4); AST(SGOT) 24 U/L (<=37); Alanine Aminotransfer ALT/SGPT 10 U/L (<=46); Albumin, Serum 4.3 g/dL (3.4-4.8); Alkaline Phosphatase 63 U/L (40-129); Anion Gap 11 (5-15); BUN 14 mg/dL (4-19); Calcium,Total 9.8 mg/dL (7.6-11.0); Carbon Dioxide 25.4 mmol/L (21.0-32.0); Chloride 96 mmol/L (98-108); Cholesterol 162 mg/dL (<=200); Creatinine, Serum 0.87 mg/dL (0.70-1.20); EST Glomerular Filtration Rate 86 (>60); Globulin 3.4 g/dL (2.2-4.2); Glucose 86 mg/dL (70-99); High Density Lipoprotein 69 mg/dL; Low Density Lipoprotein Calc. 83 mg/dL; Potassium 4.5 mmol/L (3.3-5.1); Protein, Total 7.6 g/dL (5.9-8.4); Sodium Level 132 mmol/L (133-145); Total Bilirubin 0.66 mg/dL (0.00-1.30); Triglycerides 52 mg/dL; Very Low Density Lipoprotein 10 mg/dL (5-40); cholesterol:hdl ratio screen 2.36
== END | disposition home or self-care (01) ==
LOC: BFHLAB 11:28
PROVIDERS: PCP Nurse Practitioner Family; Visit Provider Nurse Practitioner Family
DX: I10 Essential (primary) hypertension (principal); E78.5 Hyperlipidemia, unspecified; Z12.5 Encounter for screening for malignant neoplasm of prostate
CPT/HCPCS: 36415; 80053; 80061; 84153; 85025; G0103